=== PATIENT | female | born 1960 | race Caucasian/White ===

== ENCOUNTER 2020-10-05 13:05 | Emergency (ER) | payer MEDICAID, SELFPAY ==
[2020-10-05 13:07] VITALS: BP 121/83; PULSE 91; RESP 18; TEMP 36.1; O2SAT 98; BMI 16.2
--- NOTE | 2020-10-05 13:22 | CT_ITS ---
STUDY: CT BRAIN WITHOUT CONTRAST REASON FOR EXAM: Female, 60 years old. Headache RADIATION DOSAGE (If Supplied By Facility): CTDIvol = ( 44.99 ) mGy, DLP = ( 745.49 ) mGycm TECHNIQUE: Transaxial CT imaging of the brain was performed without administration of intravenous contrast material. Individualized dose optimization techniques were used for this CT. COMPARISON: No relevant priors. FINDINGS: Normal soft tissue structures. Normal calvarium. Normal size ventricles and extra-axial spaces for the patient''s age. Normal white matter tracts of the cerebral hemispheres. Normal basal ganglia and thalami. Normal brainstem. Normal cerebellum. There is no intracranial hemorrhage. There are no findings of an acute ischemic infarction. Normal visualized paranasal sinuses. CT/Brain/Head without Contrast IMPRESSION: Normal unenhanced CT scan of the brain. Electronically Signed: Geoff Luong MD at 14:16 EDT , Service support ,
--- NOTE | 2020-10-05 13:22 | EKG12_ITS ---
Test Reason : HEADACHE Blood Pressure : / mmHG Vent. Rate : 081 BPM Atrial Rate : 081 BPM P-R Int : 126 ms QRS Dur : 092 ms QT Int : 394 ms P-R-T Axes : 083 084 061 degrees QTc Int : 457 ms Normal sinus rhythm Incomplete right bundle branch block Borderline ECG Confirmed by JESS FAUSTIN, LIZETT ([id number]), scientific editor CELENA WHITESIDE ([id number]) on 10/06/2020 1:54:54 PM Referred By: RU Confirmed By:LIZETT MERCADO MD
--- NOTE | 2020-10-05 13:23 | ED.DCSUM_ITS ---
- ER Visit Summary Date of Service: 10/05/20 Chief Complaint: [Nausea and headache] History of Present Illness: The patient is a 60 F [presents to the emergency department with multiple complaints. Patient states that she developed a headache 2 days ago and cannot really remember if it came on suddenly or gradually build but has been continuous. Patient has taken Tylenol without relief. She complains of nausea but no vomiting. She describes diffuse body aches. Patient denies any fever. She denies significant cough. 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 Patient states that sometimes the cancer can metastasize to the lungs and she has had partial lobectomy. Patient denies any Covid exposures. Denies urinary symptoms. She describes mild abdominal discomfort but it is more nausea.] Physical Examination: [HEENT-PERRLA, EOMI. Cranial nerves II through XII grossly intact. TMs clear. Mucous membranes moist. No adenopathy. Cardiovascular-regular rate and rhythm without murmur or ectopy Lungs-clear to auscultation, chest wall stable without crepitus or subcu emphysema Abdomen-normoactive bowel sounds, soft, nontender, no rebound or rigidity, no p eritoneal signs. Neuro pnri-twydnp-etgd and heel wheeler testing within normal limits, negative Romberg, negative pronator, fundi benign Extremities-intact ?4, normal range of motion, normal pulses, atraumatic] Test Results: [EKG obtained arrival shows sinus rhythm with a ventricular rate of 81 bpm with an incomplete right bundle branch block. CBC with differential showed a normal white count of 8.1, hemoglobin 16.9, chemistries unremarkable. LFTs normal. Lipase was 169. Urinalysis normal. Troponin is less than 0.015. Rapid COVID-[address] of the brain was normal.] Emergency Department Course and Treatment: [IV line established on arrival. Patient was given Reglan, Benadryl, and Toradol and her headache did improve.] Treatment Plan: [Patient advised to follow-up with her primary care physician in 3 to 5 days.] Disposition: [Discharged home in stable condition] Impression: [Cephalgia Viral syndrome] This note was generated with [employer] software. It may contain incorrect words, spelling, and punctuation that were not noted in review of the chart prior to signing ED Disposition - Plan for ED Patient: Referrals: NOT,DEFINED [NON-STAFF] -
[2020-10-05] MEDS: Metoclopramide 10 MG/2 ML Vial IV (13:35)
[2020-10-05] MEDS: Ketorolac 15 MG/ML Vial IV (13:35)
[2020-10-05] MEDS: DiphenhydrAMINE 50 MG/ML Syringe 25 MG IV (13:35)
--- NOTE | 2020-10-05 13:45 | NURSING ---
NO OLD EKGS
[2020-10-05 13:49] LABS: Absolute Lymphocyte Count 2.77 X10^3/uL (0.83-4.51); Absolute Neutrophil Count 4.5 X10^3/uL (2.0-7.7); Basophil# 0.04 X10^3/uL; Basophil% 0.5 % (0-1); Eosinophil# 0.11 X10^3/uL; Eosinophils% 1.4 % (0-5); Hemoglobin 16.9 g/dL (12.0-15.0); Lymphocyte # 2.77 X10^3/ul (4.0); Lymphocyte % 34.2 % (19-41); Mean Corp Hgb Conc 33.1 g/dL (32-36); Mean Corpuscular Hgb 31.5 pg (27.0-32.0); Mean Platelet Vol. 10.7 fl (6.2-12.0); Monocyte# 0.65 X10^3/uL; NRBC Flagged by Analyzer 0 % (0-5); Neutrophil # 4.51 X10^3/uL (2.7-7.7); Neutrophil % 55.8 % (47-70); Platelet Count 255 K/mm3 (150-450); RBC Distribution Width CV 13.2 % (11.6-14.6); RBC Distribution Width SD 46.5 fl (35.1-43.9); Red Blood Count 5.37 M/mm3 (4.2-5.4); White Blood Count 8.1 K/mm3 (4.4-11.0)
[2020-10-05] MEDS: 0.9% Normal Saline 1,000 ML 150 ML IV (14:01)
[2020-10-05 14:11] LABS: ALB/GLOB Ratio 1.1 RATIO (0.9-2.4); AST(SGOT) 14 U/L (15-37); Alanine Aminotransfer ALT/SGPT 25 U/L (13-56); Albumin, Serum 4.1 g/dL (3.2-5.0); Alkaline Phosphatase 84 U/L (45-117); Anion Gap 6 (5-15); BUN 8 mg/dL (7-18); BUN/Creat Ratio 8.1 RATIO (10-20); Calcium,Total 9.6 mg/dL (8.5-10.1); Chloride 105 mmol/L (98-107); Creatinine, Serum 0.98 mg/dL (0.55-1.02); EST Glomerular Filtration Rate 61 mL/min (>60); Est Glom Filt Rate - Afr Amer 74 mL/min (>60); Estimated Creatinine Clearance 41.53 ml/min; Globulin 3.7 g/dL (2.2-4.2); Glucose 94 mg/dL (74-106); Lipase 169 U/L (73-393); Potassium 3.5 mmol/L (3.5-5.1); Protein, Total 7.8 g/dL (6.4-8.2); Sodium Level 141 mmol/L (136-145)
[2020-10-05 14:45] LABS: Mucous, Urine 0 SEEN /hpf (<or=2+); Red Blood Cells-Urine 0 SEEN /hpf (0-5); White Blood Cells 0 SEEN /hpf (0-5)
[2020-10-05 14:47] LABS: Color, Urine Yellow (Yellow); Glucose, Dipstick Normal (Normal); Ketone-Dipstick Negative (Negative); Leukocyte Esterase-Dipstick Negative /ul (Negative); Nitrite-Dipstick Negative (Negative); Occult Blood-Urine Negative /ul (Negative); Protein-Dipstick Negative (Negative); Urine Bilirubin Dipstick Negative (Negative); Urine Clarity Clear (Clear); Urine Urobilinogen Normal (Normal); Urine pH 6.5 (5.0 - 8.0)
[2020-10-05 14:56] LABS: Bacteria RARE /hpf (None Seen); Squamous Epithelial Cells - UA 0-5 SEEN /hpf (5-10)
--- NOTE | 2020-10-05 15:01 | ED.DEP ---
ED Disposition - Plan for ED Patient: Instructions: ED Viral Syndrome (Adult) Referrals: NOT,DEFINED [NON-STAFF] - 3-5 Days
[2020-10-05 15:15] VITALS: BP 116/75; PULSE 80; RESP 16; O2SAT 97
== END 2020-10-05 15:16 | disposition home or self-care (01) ==
LOC: ED 14:14
PROVIDERS: Emergency Provider Emergency Medicine
DX: B34.9 Viral infection, unspecified (principal); R51.9 Headache, unspecified; J44.9 Chronic obstructive pulmonary disease, unspecified; Z72.0 Tobacco use
CPT/HCPCS: 70450; 80053; 81001; 83690; 84484; 85025; 87426; 93005; 96361; 96374; 96375; 99284; J7030; A4216

== ENCOUNTER 2024-03-03 12:15 | Emergency (ER) | payer MEDICAID, SELFPAY ==
[2024-03-03 12:16] VITALS: BP 137/91; PULSE 87; RESP 16; TEMP 36.2; O2SAT 98; BMI 16.5
--- NOTE | 2024-03-03 12:31 | EKG12_ITS ---
Test Reason : CHEST TRAUMA Blood Pressure : / mmHG Vent. Rate : 077 BPM Atrial Rate : 077 BPM P-R Int : 126 ms QRS Dur : 084 ms QT Int : 380 ms P-R-T Axes : 084 084 076 degrees QTc Int : 430 ms Normal sinus rhythm Possible Left atrial enlargement Borderline ECG Confirmed by SALINAS FAUSTIN, KIM ([id number]), purchasing expeditor CELENA WHITESIDE ([id number]) on 03/07/2024 9:51:58 AM Referred By: Confirmed By:CURT NIÑO MD
[2024-03-03 14:22] VITALS: BP 138/95; PULSE 83; RESP 17; O2SAT 95
--- NOTE | 2024-03-03 14:23 | ED.RN ---
WHEN WALKING TO ED ROOM, PATIENT TRIPPED OVER HER SHOE AND LOWERED HERSELF TO THE GROUND. PATIENT STATES SHE DOES NOT WANT TO WEAR SHOES AND WALKS TO ED ROOM BAREFOOT
[2024-03-03 14:24] VITALS: O2SAT 97
[2024-03-03 14:25] VITALS: O2SAT 95; O2SAT 97
[2024-03-03 14:36] LABS: Absolute Lymphocyte Count 2.15 X10^3/uL (0.83-4.51); Absolute Neutrophil Count 4.2 X10^3/uL (2.0-7.7); Basophil# 0.01 X10^3/uL; Basophil% 0.1 % (0-1); Eosinophil# 0.11 X10^3/uL; Eosinophils% 1.6 % (0-5); Hematocrit 51.5 % (37-47); Hemoglobin 16.8 g/dL (12.0-15.0); Lymphocyte # 2.15 X10^3/ul (0.83-4.51); Lymphocyte % 30.8 % (19-41); Mean Corp Hgb Conc 32.6 g/dL (32-36); Mean Corpuscular Hgb 30.5 pg (27.0-32.0); Mean Corpuscular Volume 93.5 fL (81-99); Mean Platelet Vol. 10.1 fl (6.2-12.0); Monocyte# 0.49 X10^3/uL; NRBC Flagged by Analyzer 0 % (0-5); Neutrophil # 4.21 X10^3/uL (2.7-7.7); Neutrophil % 60.4 % (47-70); Platelet Count 159 K/mm3 (150-450); RBC Distribution Width CV 13.3 % (11.6-14.6); RBC Distribution Width SD 46.1 fl (35.1-43.9); Red Blood Count 5.51 M/mm3 (4.2-5.4)
[2024-03-03 14:50] LABS: Anion Gap 2 (5-15); BUN 9 mg/dL (7-18); BUN/Creat Ratio 12.2 RATIO (10-20); Calcium,Total 8.9 mg/dL (8.5-10.1); Chloride 106 mmol/L (98-107); Creatinine, Serum 0.74 mg/dL (0.55-1.02); EST Glomerular Filtration Rate 84 mL/min (>60); Est Glom Filt Rate - Afr Amer 102 mL/min (>60); Estimated Creatinine Clearance 53.63 ml/min; Glucose 125 mg/dL (74-106); Potassium 4.2 mmol/L (3.5-5.1); Sodium Level 136 mmol/L (136-145)
--- NOTE | 2024-03-03 14:59 | CT_ITS ---
STUDY: CT CHEST T ABDOMEN WITHOUT CONTRAST REASON FOR EXAM: Female, 63 years old. Injury -- left rib injury. Mid to lower anterior left ribs. RADIATION DOSAGE (If Supplied By Facility): CTDIvol = ( 6.07 ) mGy, DLP = ( 232.03 ) mGycm TECHNIQUE: Transaxial imaging was performed without the administration of intravenous contrast material. Multiplanar coronal and sagittal images were reformatted. Individualized dose optimization techniques were used for this CT. COMPARISON: No relevant priors. FINDINGS: CHEST Hyperinflation. Diffuse emphysematous changes with bullous formation. Calcified granuloma in the left lower lobe. Mild calcified pleural plaques. There are calcifications of the coronary arteries. Normal mediastinum. Calcified bilateral hilar lymph nodes. Normal unenhanced pulmonary arteries. Normal aorta arch and descending thoracic aorta. There is demineralization of the thoracic spine. There is no demonstrated abnormality of the visualized upper abdomen. CT/Chest without Contrast IMPRESSION: Hyperinflation and emphysematous changes. No rib fracture is seen. Electronically Signed: Geoff Luong MD at 15:52 EDT ,
--- NOTE | 2024-03-03 15:00 | EX.ED.GENINJ ---
HPI History of Present Illness Chief Complaint: Shortness of Breath Informant: patient Narrative Narrative: Presents for evaluation and continued left lower rib pain with increasing dyspnea. She had a fall 2 days ago off the deck hitting her left lower ribs. She had injury left hip also. She seen outside ED. She x-rays of the ribs and hip was performed and told negative and stated that fractures are still possible. She is written for [place] and naproxen and lidocaine patch. Her pharmacy was closed yesterday. She did not get any medicine since her ED visit. She reported increasing dyspnea today. She has history of COPD she wears oxygen as needed. No new injuries. [facility] Medical History Cancer of cartilage (articular) (joint) COPD (chronic obstructive pulmonary disease) Home Medications ?Medication ?Instructions ?Recorded ?Last Taken ?Type coenzyme Q10 200 mg capsule 400 mg PO DAILY 03/03/24 Unknown History hydrocodone-acetaminophen 5-325mg 1 tab PO TID PRN 03/03/24 Unknown History 5mg-325mg mometasone-formoterol HFA 100 2 puff inhalation Q12.TCU 03/03/24 Unknown History mcg-5 mcg/actuation aerosol inhaler (Dulera) naproxen 500 mg tablet 500 mg PO BID 03/03/24 Unknown History tiotropium bromide 2.5 2 puff inhalation DAILY 03/03/24 Unknown History mcg/actuation mist for inhalation (Spiriva Respimat) Allergy/AdvReac Type Severity Reaction Status Date / Time azithromycin AdvReac Anaphylaxis Verified 03/03/24 12:20 Surgical History S/P partial lobectomy of lung Social History Smoking Status: Light Smoker (<10/day) ROS ROS ED Constitutional Constitutional ED: Denies chills, fever(s) or sweats Eyes Eyes: Denies change in vision ENT ENT ED: Denies dysphagia or sore throat Cardiovascular Cardiovascular: Denies chest pain, leg edema, palpitations or racing heartbeat Respiratory/Chest Respiratory/Chest: Reports dyspnea and other Details: Left lower rib pain ; Denies cough or dyspnea on exertion Gastrointestinal Gastrointestinal: Denies abdominal pain, diarrhea, nausea or vomiting Genitourinary Genitourinary ED: Denies dysuria, hematuria or urinary frequency Musculoskeletal Musculoskeletal: Denies back pain, extremity pain or neck pain Integumentary Denies rash or wounds Neurologic Neurologic: Denies headache(s), paresthesias or weakness EXAM Physical Exam Const Vital Signs: 03/03/24 12:16 03/03/24 14:22 03/03/24 14:24 Temperature 97.2 F L Temperature Source Temporal Pulse Rate 87 83 Respiratory Rate 16 17 Respiratory Effort Short of Breath Respiratory Depth Shallow Respiratory Pattern Normal Blood Pressure 137/91 H 138/95 H Blood Pressure Mean 106 109 Pulse Ox 98 95 Oxygen Delivery Method Room Air Room Air 03/03/24 14:24 03/03/24 14:25 03/03/24 14:25 Temperature Temperature Source Pulse Rate Respiratory Rate Respiratory Effort Respiratory Depth Shallow Respiratory Pattern Blood Pressure Blood Pressure Mean Pulse Ox 97 95 Oxygen Delivery Method Room Air 03/03/24 16:06 03/03/24 16:06 Temperature 98 F Temperature Source Pulse Rate 87 87 Respiratory Rate 18 19 H Respiratory Effort Respiratory Depth Respiratory Pattern Blood Pressure 141/75 H 141/75 H Blood Pressure Mean 97 97 Pulse Ox 97 94 Oxygen Delivery Method Positive well nourished and well developed Constitutional Narrative: GCS 15. General Appearance ED: well developed and NAD HEENT Reports moist mucous membranes normocephalic and atraumatic Eyes EOMs intact bilaterally and conjunctivae normal General Eye ED: Yes normal appearance of both eyes Neck no lymphadenopathy and supple General: Negative for tenderness Chest Wall Chest Narrative: No crepitus of the chest wall. Tender palpation left lower anterior ribs. Chest: tenderness Resp normal respiratory effort and normal air movement Resp Narrative: Symmetric breath sounds. Effort and Inspection: symmetric chest movement; Negative for respiratory distress Cardio regular rate, regular rhythm and no murmurs Peripheral Pulses: pulses 2+ throughout GI normal to inspection, nondistended, normoactive bowel sounds and non-tender Palpation: Negative for guarding or rebound tenderness present Back/Spine no CVA tenderness and no thoracic nor lumbar tenderness Extremity normal to inspection Extremity Narrative: Negative logroll of the lower extremities. General Extremety ED: Negative for edema or tenderness General Extremity: Negative for edema Neuro oriented x3, CN's II-XII intact bilaterally and no sensory deficits noted Sensorium / Orientation: awake and alert Skin no rashes or lesions noted and no wounds MDM MDM MDM Narrative Medical decision making narrative: Interventions / MDM: Differential diagnosis: Chest contusion, history of COPD Diagnosis considered but do not suspect: Fracture, pneumothorax however CT negative. My EKG interpretation: Sinus rate of 77, no ST changes. T wave version aVL nonspecific. Imaging independently reviewed and interpreted by myself: Noncontrast CT chest: No pneumothorax no fractures noted. Also read by radiology. External documents reviewed: N/A Test considered but not ordered:N/A ED course: Nursing protocol obtain EKG and labs. Results her labs are stable. However patient had a fall 2 days a negative x-rays at outside facility. Send persistent pain reports increasing dyspnea. Clinically is symmetric breath sounds lower suspicion for pneumothorax. However with her pain, will obtain noncontrast CT chest for further evaluation. She will be treated with [place] in the ED. Image studies negative. She is reassured. She has naproxen and [place] at her pharmacy she needs to package pick up. Also Lidoderm patches. Initial order for incentive spirometer however she reports she has 1 at home for should use every 2 hours while she is awake to avoid pneumonia. All questions were answered. Re-evaluation: stable Disposition discussed with patient/family/significant other: Patient Case discussed with consulting clinician: N/A This note was generated with [employer] dictation software. It may contain incorrect words, spelling, and punctuation that were not noted in checking the note before signing. Lab Data Attestation: I reviewed the patient's lab results. Labs: Laboratory Results - last 24 hr 03/03/24 14:27 WBC 7.0 RBC 5.51 H Hgb 16.8 H Hct 51.5 H MCV 93.5 MCH 30.5 MCHC 32.6 RDW Std Deviation 46.1 H RDW Coeff of Darron 13.3 Plt Count 159 MPV 10.1 Immature Gran % (Auto) 0.100 Neut % (Auto) 60.4 Lymph % (Auto) 30.8 Sioux % (Auto) 7.0 Eos % (Auto) 1.6 Baso % (Auto) 0.1 Absolute Neuts (auto) 4.2 Absolute Lymphs (auto) 2.15 Nucleated RBC % 0 Sodium 136 Potassium 4.2 Chloride 106 Carbon Dioxide 28.0 Anion Gap 2 L BUN 9 Creatinine 0.74 Estim Creat Clear Calc 53.63 Est GFR (MDRD) Af Amer 102 Est GFR (MDRD) Non-Af 84 BUN/Creatinine Ratio 12.2 Glucose 125 H Calcium 8.9 Radiography Diagnostic Testing: Clinical Impression(s) from Imaging Studies Chest CT 03/03/24 14:59 IMPRESSION: Hyperinflation and emphysematous changes. No rib fracture is seen. Electronically Signed: Geoff Luong MD at 15:52 EDT , Discharge Plan Triage Chief Complaint: Shortness of Breath Other Complaint: Fall ED Provider: Todd Mixon Dx/Rx/DC Orders Clinical Impression: Chest wall contusion, History of COPD Instructions: ED Chest Wall Contusion Prescriptions: No Action hydrocodone-acetaminophen 5-325 mg tablet 1 tab PO TID PRN coenzyme Q10 200 mg capsule 400 mg PO DAILY naproxen 500 mg tablet 500 mg PO BID Dulera 100-5 mcg/actuation HFA aerosol inhaler 2 puff INHALATION Q12.TCU Spiriva Respimat 2.5 mcg/actuation mist 2 puff inhalation DAILY Primary Care Provider: RONALDO GRIER NP Referrals: NOT,DEFINED [Non-Staff] - Activity Restrictions/Additional Instructions: Noncontrast CT chest negative for any fracture or pneumothorax. 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 Use your home incentive spirometry every 2 hours while awake to prevent pneumonia. Print Language: Greek Disposition Disposition: Home, Self Care Discharge Date/Time: 03/03/24 16:10
[2024-03-03] MEDS: HYDROcodone Bitartrate/Apap 5/325 Tablet PO (15:39)
[2024-03-03 16:06] VITALS: BP 141/75; PULSE 87; RESP 18; RESP 19; TEMP 36.6; O2SAT 94; O2SAT 97
== END 2024-03-03 16:10 | disposition home or self-care (01) ==
PROVIDERS: Emergency Provider Emergency Medicine; Visit Provider Emergency Medicine
DX: S20.212A Contusion of left front wall of thorax, initial encounter (principal); J44.9 Chronic obstructive pulmonary disease, unspecified; W17.89XA Other fall from one level to another, initial encounter; F17.200 Nicotine dependence, unspecified, uncomplicated
CPT/HCPCS: 71250; 80048; 85025; 93005; 94760; 99283; A4216

== ENCOUNTER → 2025-05-01 | Outpatient (CLI) | payer MEDICAID, SELFPAY ==
--- NOTE | 2025-05-01 07:18 | MRI_ITS ---
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 CONTRAST: Clariscan VOLUME: 9 mL COMPARISON: None. FINDINGS: There are few scattered punctate foci of abnormal subcortical and periventricular white matter signal in both cerebral hemispheres. There is no abnormal intracranial contrast enhancement. There is a normal sulcal pattern and gyral configuration. There is no evidence of acute intracranial hemorrhage or infarction. The castillo-white differentiation is well preserved. There is no evidence of restricted diffusion. The ventricles and basilar cisterns are normal. There are normal flow voids demonstrated in the recognized intracranial vessels. The cerebellum and brainstem are unremarkable. The cerebellar pontine angles are normal. The craniovertebral junction is normal. The sella and suprasellar regions are normal. The orbits and retro-orbital regions are unremarkable. There is mild nasal septal deviation to the left. The left middle nasal lola is hypoplastic. There is a mucous retention cyst in the floor of the left maxillary sinus. The paranasal sinuses are otherwise clear. There are multiple fluid-filled mastoid air cells bilaterally. There is normal bone marrow signal in the skull base and calvarium. MRI/Brain W/WO Contrast IMPRESSION: 1. No abnormal intracranial contrast enhancement to suggest metastatic disease . 2. Foci of abnormal signal in both cerebral hemispheres consistent with chroni c ischemic white matter disease. 3. Paranasal sinus disease as described. Reading Location: [place] [id number]
--- OUTSIDE RECORDS SUMMARY | 2025-05-01 07:20 | XMS RPT_ITS | CCD ---
Author Organization [facility] Care Team Providers Care [employer] Officer Name Role Phone Tex Roldan Unavailable Unavailable Tex Roldan Unavailable Unavailable Tex Roldan Unavailable Unavailable Butch Priest Unavailable Aliya GATE SHEAR OPERATOR-PUBLIC SPEAKING PROFESSOR, Yulia R Primary Care Provider [place] GATE SHEAR OPERATOR-PUBLIC SPEAKING PROFESSOR, Crystal Unavailable Martin Gilbert MD Unavailable Arely FAUSTIN, Dior Root Unavailable Arely FAUSTIN, Dior B Unavailable Cleves GATE SHEAR OPERATOR-PUBLIC SPEAKING PROFESSOR, Yulia R Primary Care Provider [place] GATE SHEAR OPERATOR-PUBLIC SPEAKING PROFESSOR, Crystal Unavailable Martin Gilbert MD Unavailable [phone] Arely FAUSTIN, Dior Root Unavailable Cleves GATE SHEAR OPERATOR-PUBLIC SPEAKING PROFESSOR, Yulia R Primary Care Provider [place] GATE SHEAR OPERATOR-PUBLIC SPEAKING PROFESSOR, Crystal Unavailable Martin Gilbert MD Unavailable Arely FAUSTIN, Dior Root Unavailable Cleves GATE SHEAR OPERATOR-PUBLIC SPEAKING PROFESSOR, Yulia R Primary Care Provider Arely FAUSTIN, Dior Unavailable NONE NONE, NONE~[phone] NONE Primary Care Unavailable COURTNEY ROSE MD Consulting Unavailable ELIZA FAUSTIN DR~[id number] KEVIN Leonard Admitting Unavailable ELIZA FAUSTIN DR~[id number] KEIVN Leonard Attending Unavailable COURTNEY ROSE MD Consulting Unavailable NONE NONE, NONE~[phone] NONE Consulting Unavailable NONE, NONE Consulting Unavailable ALMANZAR PA-C, TOREY R Consulting Unavailabl e ALMANZAR PA-C, TOREY R Consulting Unavailabl e NONE NONE, NONE~[phone] NONE Primary Care Unavailable NONE NONE, NONE~[id number] NONE Consulting Unavailable ALMANZAR PA-C~[id number], ALMANZAR TOREY R Admitti ng Unavailable ALMANZAR PA-C~[id number], ALMANZAR TOREY R Attendi ng Unavailable NONE, NONE Consulting Unavailable ALMANZAR PA-C, TOREY R Consulting Unavailabl e ALMANZAR PA-C, TOREY R Consulting Unavailabl e NONE NONE, NONE~[phone] NONE Primary Care Unavailable ANAI FAUSTIN, DR MATEO Rangel Consulting Unavail able WOOD DO~[id number], WOOD TITO A Admitting Unavailable WOOD DO~[id number], WOOD TITO A Attending Unavailable ANAI FAUSTIN, DR MATEO Rangel Consulting Unavail able NONE NONE, NONE~[id number] NONE Consulting Unavailable NONE, NONE Consulting Unavailable EDWARD GATE SHEAR OPERATOR, IRMA E Consulting Unavail able EDWARD GATE SHEAR OPERATOR, IRMA E Consulting Unavail able WOOD DO, TITO A Consulting Unavailable WOOD DO, TITO A Consulting Unavailable [place] GATE SHEAR OPERATOR-PUBLIC SPEAKING PROFESSOR, Crystal Unavailable Cleves GATE SHEAR OPERATOR-PUBLIC SPEAKING PROFESSOR, Yulia Moore Primary Care Provider [place] GATE SHEAR OPERATOR-PUBLIC SPEAKING PROFESSOR, Crystal Unavailable Martin Gilbert MD Unavailable Dior Mcgee MD Unavailable [facility], Other Unavailable Nai Menjivar Attending Physician Unavailable Dr. Roddy Garay DO Attending Physician CHERI WHITE Referring Provider Roddy Garay Attending Unavailable Nai Menjivar Attending Unavailable Roddy Garay Attending Unavailable Roddy Garay Referring Unavailable Roddy Garay Attending Unavailable Roddy Garay Referring Unavailable CAMMY GILLIAM Primary Care Unavailable Roddy Garay Attending Unavailable CAMMY GILLIAM Referring Unavailable TIFFANY, SHWETHA K Attending Unavailable SELF, SELF Referring Unavailable ALIYA, YULIA R Primary Care Unavailable JEY ZAIN Iam Attending Unavailable CLOYES, SAVI R Referring Unavailable ALIYA, YULIA R Primary Care Unavailable ALIYA, YULIA R Referring Unavailable ALIYA, YULIA R Attending Unavailable ALIYA, YULIA R Primary Care Unavailable TIFFANY, SHWETHA K Referring Unavailable KINGA CARPENTER Ariel Attending Unavailable ALIYA, YULIA R Primary Care Unavailable TIFFANY, SHWETHA K Referring Unavailable TIFFANY, SHWETHA K Attending Unavailable ALIYA, YULIA R Primary Care Unavailable TIFFANY, SHWETHA K Referring Unavailable TIFFANY, SHWETHA Rangel Attending Unavailable ALIYA, YULIA R Primary Care Unavailable ALIYA, YULIA R Referring Unavailable TIFFANY, SHWETHA K Attending Unavailable ALIYA, YULIA R Primary Care Unavailable ALMA BAPTISTE Attending Unavailable SAVI VAZQUEZ Referring Unavailable ALIYA, YULIA R Primary Care Unavailable ALIYA, YULIA R Referring Unavailable NAYA GALICIA Attending Unavailable ALIYA, YULIA R Primary Care Unavailable ALMA BAPTISTE Referring Unavailable ALMA BAPTISTE Attending Unavailable ALIYA, YULIA R Primary Care Unavailable SELF, SELF Referring Unavailable NAYA GALICIA Attending Unavailable ALIYA, YULIA R Primary Care Unavailable BRAN CURRIE Referring Unavailable ALIYA, YULIA R Primary Care Unavailable BRAN CURRIE Attending Unavailable MELISSA SAVI R Attending Unavailable ALIYA, YULIA R Primary Care Unavailable MELISSA, SAVI R Referring Unavailable MELISSA, SAVI R Referring Unavailable MELISSA, SAVI R Attending Unavailable ALIYA, YULIA R Primary Care Unavailable ALIYA, YULIA R Referring Unavailable TIFFANY, SHWETHA Rangel Attending Unavailable ALIYA, YULIA R Primary Care Unavailable MELISSA, SAVI R Attending Unavailable ALIYA, YULIA R Primary Care Unavailable MELISSA, SAVI R Referring Unavailable ALIYA, YULIA R Attending Unavailable SELF, SELF Referring Unavailable ALIYA, YULIA R Primary Care Unavailable ALIYA, YULIA R Referring Unavailable BRAN CURRIE Attending Unavailable ALIYA, YULIA R Primary Care Unavailable Dior Mcgee MD Unavailable [facility], Other Unavailable Allergies Allergy Classification Reported Allergen(s) Allergy Type Date of Onset Reaction(s) Facility Albuterol (3 sources) Albuterol Drug Allergy 4 Shortness of Breath, Anxiety, Palpitations, Tachycardia [facility] Macrolides (antibiotic) (3 sources) Azithromycin Drug Allergy 9 Anaphylaxis [facility] Work Phone: (1 source) azithromycin; Translations: [Zithromax Z-Gelacio] Drug Allergy [facility] Repository (1 source) Alendronate Drug Allergy 7 Shortness of Breath, Nausea and Vomiting [facility] Work Phone: (20 sources) Azithromycin Drug Allergy 0 Shortness of Breath, Bronchospasms, Anaphylaxis [facility] Work Phone: (1 source) gabapentin Drug Allergy 8 Numbness [facility] Work Phone: (17 sources) Albuterol Drug Allergy 4 Shortness of Breath, Anxiety, Palpitations, Tachycardia [facility] (1 source) Azithromycin Drug Allergy [facility] Repository (1 source) Albuterol Drug Allergy 5 [facility] Repository (1 source) Azithromycin Drug Allergy 5 [facility] Repository Medications Current Medications Medication Drug Class(es) Dates Sig (Normalized) Sig (Original) albuterol 0.833 mg/ml / ipratropium bromide 0.167 mg/ml inhalation solution (20 sources) Anticholinergic, beta2-Adrenergic Agonist Start: 11-21-2021 End: 11-22-2021 ipratropium-albute rol (DUONEB) 0.5-2.5 (3) MG/3ML nebulizer solution 3 mL Start: 11-11-2021 End: 02-21-2025 Ipratropium-albuterol 0.5-2. 5 (3) MG/3ML nebulizer solution Indications: Panlobular emphysema Take 3 mL by nebulization every 4 hours as needed for Wheezing, Respiratory Distress, Breathing Treatment, Cough or Shortness of Breath. 9 mL 3 01/22/2025 Active Start: 11-09-2021 End: 11-11-2021 take 3 mL by inhalation every six hours ipratropium-albuterol (DUONEB) 0.5-2.5 (3) MG/3ML nebulizer solution 3 mL Start: 01-11-2021 End: 11-11-2021 ipratropium-albuterol 0.5-2. 5 (3) MG/3ML nebulizer solution Indications: COPD with acute exacerbation Take 3 mL by nebulization every 6 hours as needed for Wheezing, Shortness of Breath or Breathing Treatment. 90 mL 1 01/11/2021 11/11/2021 Discontinued Atogepant 60 MG tablet (7 sources) Start: 02-27-2023 take 1 tablet by mouth once daily Atogepant 60 MG tablet Take 60 mg by mouth daily. 30 tablet 11 02/27/2023 Active cholecalciferol 5000 unt oral tablet (1 source) Vitamin D Start: 04-01-2018 take 1 tablet by mouth once daily cholecalciferol 5000 units Tab tablet Take 1 tablet by mouth daily. 90 tablet 3 04/01/2018 Active CUSTOM MEDICATION (20 sources) CUSTOM MEDICATIO N Lung Flush Active CUSTOM MEDICATIO N [place] supplement Active daily multivitamin tablet (20 sources) Start: 10-20-2023 daily multivit becker tablet 10/20/2023 Active Dimethicone-Zinc Oxide-Silve r 20-25-25 %-%-PPM spray,non-aerosol (1 source) Start: 04-20-2025 Dimethicone-Zi nc Oxide-Silver 20-25-25 %-%-PPM spray,non-aerosol Active [facility] April 20, 2025 12:00am Complies with drug therapy DISABILITY PLACARD (20 sources) Start: 11-07-2022 End: 11-09-2027 DISABILITY PLACARD Indicatio ns: Panlobular emphysema Disability placard end date 11/09/2027 1 Each 11/07/2022 11/09/2027 Active Start: 11-07-2022 End: 11-09-2027 DISABILITY PLACARD Indicatio ns: Panlobular emphysema Disability placard end date 11/09/2027 1 Each 0 11/07/2022 11/09/2027 Active Start: 09-27-2021 End: 09-28-2022 DISABILITY PLACARD Indicatio ns: Chronic pain of right heel Disability placard end date 09/28/2022 1 Each 0 09/27/2021 09/28/2022 Suspended Start: 09-27-2021 End: 09-28-2022 DISABILITY PLACARD Indicatio ns: Chronic pain of right heel Disability placard end date 09/28/2022 1 Each 0 09/27/2021 09/28/2022 Start: 09-27-2021 End: 09-28-2022 DISABILITY PLACARD Indicatio ns: Chronic pain of right heel Disability placard end date 09/28/2022 1 Each 0 09/27/2021 09/28/2022 Active Ensure High Protein Po Liqd (1 source) Start: 04-01-2018 Nutritional Supplements (ENSURE HIGH PROTEIN) Liquid Take 1 Bottle by mouth daily. 30 Can 3 04/01/2018 Active Flavoring Agent (Bulk) oil (1 source) Start: 04-20-2025 Flavoring Agen t (Bulk) oil Active [facility] April 20, 2025 12:00am Complies with drug therapy 60 actuat formoterol fumarate 0.005 mg/actuat / mometasone furoate 0.1 mg/actuat metered dose inhaler (20 sources) Corticosteroid, beta2-Adrenergic Agonist Start: 03-20-2025 take 2 puff(s) by mouth once Dulera 100-5 MCG/ACT Aerosol Indications: Panlobular emphysema inhale TWO puffs BY MOUTH EVERY TWELVE HOURS 13 g 1 03/20/2025 Active Start: 01-22-2025 take 2 puff(s) by in halation every twelve hours Mometasone Furo-Formoterol Fum (Dulera) 100-5 MCG/ACT Aerosol Indications: Panlobular emphysema Inhale 2 puffs every 12 hours. 13 g 1 01/22/2025 Active Start: 04-14-2024 End: 01-22-2025 take 2 puff(s) by mouth every twelve hours Dulera 100-5 MCG/ACT Aerosol Indications: Panlobular emphysema inhale 2 puffs by mouth every 12 hours 13 g 1 04/14/2024 01/22/2025 Discontinued (Reorder) Start: 03-03-2024 Mometasone-For moterol [Mometasone-Formoterol Hfa 100 Mcg-5 Mcg/Actuation Aerosol Inhaler] (Mometasone-Formoterol Hfa 100 Mcg-5 Mcg/Actuation Aerosol ) 100-5 mcg/actuation HFA aerosol inhaler Active 2 [facility] INHALATION March 03, 2024 12:00am Complies with drug therapy Start: 12-12-2023 End: 02-14-2024 take 2 puff(s) by mouth every twelve hours Dulera 100-5 MCG/ACT Aerosol Indications: Panlobular emphysema inhale 2 puffs by mouth every 12 hours 13 g 1 12/12/2023 02/14/2024 Discontinued Start: 10-24-2023 take 2 puff(s) by mo uth every twelve hours Dulera 100-5 MCG/ACT Aerosol Indications: Panlobular emphysema inhale 2 puffs by mouth every 12 hours 13 g 1 10/24/2023 Active Start: 03-21-2023 take 2 puff(s) by mo uth every twelve hours Dulera 100-5 MCG/ACT Aerosol Indications: Panlobular emphysema INHALE 2 PUFFS BY MOUTH EVERY 12 HOURS 13 g 3 03/21/2023 Active Start: 01-09-2023 take 2 puff(s) by in halation every twelve hours Mometasone Furo-Formoterol Fum (Dulera) 100-5 MCG/ACT Aerosol Indications: Panlobular emphysema Inhale 2 puffs every 12 hours. 13 g 1 01/09/2023 Active Start: 11-21-2022 End: 01-09-2023 take 2 puff(s) by mouth every twelve hours Dulera 100-5 MCG/ACT Aerosol Indications: Panlobular emphysema INHALE 2 PUFFS BY MOUTH EVERY 12 HOURS. 13 g 1 11/21/2022 01/09/2023 Discontinued (Reorder) Start: 09-15-2022 take 2 puff(s) by mo uth every twelve hours Dulera 100-5 MCG/ACT Aerosol Indications: Panlobular emphysema INHALE 2 PUFFS BY MOUTH EVERY 12 HOURS. 13 g 1 09/15/2022 Active Start: 11-22-2021 take 2 puff(s) by mo uth every twelve hours Mometasone Furo-Formoterol Fum (Dulera) 100-5 MCG/ACT Aerosol Inhale 2 puffs by mouth every 12 hours. 13 g 3 11/22/2021 Active Start: 11-22-2021 End: 11-22-2021 Mometasone Furo-Formoterol F um (DULERA) 100-5 MCG/ACT inhaler 2 puff HERBAL PRODUCT (12 sources) take 1 dose by mouth once daily HERBAL PRODUCT Take 1 Dose by mouth daily. Replace this text with the name of the herbal product Active lidocaine 0.05 mg/mg medicated patch (1 source) Antiarrhythmic, Amide Local Anesthetic Start: 8 lidocaine 5 % Patch patch Place 1 patch on skin every 24 hours. Max of 12 hours of application then remove 10 patch 0 02/19/2018 Active Misc Natural Products (Sambucus Elderberry Immune) Chew Tab (17 sources) Misc Natural Products (Sambucus Elderberry Immune) Chew Tab Chew 2 Pieces of gum daily. 2 in the morning, 1 at night Active mullien leaf tea (1 source) Start: 5 mushroom coffe (1 source) Start: 5 Nebulizer Misc (6 sources) omeprazole 40 mg delayed release oral capsule (1 source) Proton Pump Inhibitor Start: 8 take 1 capsule by mouth once daily omeprazole [address] capsule Take 1 capsule by mouth daily. 30 capsule 3 03/04/2018 Active ondansetron 4 mg disintegrating oral tablet (20 sources) Serotonin-3 Receptor Antagonist Start: 5 End: 5 take 1 tablet by mouth every eight hours Ondansetron 4 mg tablet,disintegrati ng Active 4 mg PO Q8H April 15, 2025 12:00am Complies with drug therapy Start: 12-29-2022 take 1 tablet by jenna every eight hours as needed Ondansetron 4 MG Tab Dispersible tablet Take 1 tablet by mouth every 8 hours as needed for Nausea / Vomiting. 90 tablet 3 12/29/2022 Active Start: 10-29-2017 take 1 tablet by jenna every eight hours as needed for nausea and nausea ondansetron 8 MG Tab tablet Indications: Nausea Take 1 tablet by mouth every 8 hours as needed for Nausea. 30 tablet 3 10/29/2017 Active polyethylene glycol 3350 [id number] mg / potassium chloride 1480 mg / sodium bicarbonate 5720 mg / sodium chloride 57015 mg powder for oral solution (1 source) Osmotic Laxative Start: 04-24-2018 peg 3350/Electrolyte Jug, Nulytely, 420 g Recon Soln Drink half of the solution at 6:00pm the evening before your colonoscopy and the other half 6 hours before your colonoscopy. 1 Bottle 0 04/24/2018 Active predniSONE 20 mg oral tablet (8 sources) Start: 11-23-2021 End: 11-26-2021 take 2 tablets by mouth once daily predniSONE 20 MG tablet Take 2 tablets by mouth daily for 3 days. 6 tablet 0 11/23/2021 11/26/2021 Active Start: 11-22-2021 End: 11-22-2021 predniSONE (DELTASONE) table t 40 mg Start: 11-21-2021 End: 11-21-2021 predniSONE (DELTASONE) table t 60 mg Start: 11-12-2021 End: 11-15-2021 take 2 tablets by mouth once daily predniSONE 20 MG tablet Take 2 tablets by mouth daily for 3 days. 6 tablet 0 11/12/2021 11/15/2021 Active Start: 11-09-2021 End: 11-11-2021 predniSONE (DELTASONE) table t 40 mg riboflavin 100 mg oral table t (9 sources) Start: 10-20-2023 Vitamin B-2 10 0 MG tablet 10/20/2023 Active Start: 07-17-2023 End: 10-29-2023 take 1 capsule by mouth once daily Riboflavin 400 MG capsule Take 1 capsule by mouth daily. 30 capsule 11 07/17/2023 10/29/2023 Discontinued soursop tea (1 source) Start: 04-20-2025 Spacer/Aero-Holdin g Chambers ([place] Holding Chamber) Device (20 sources) Start: 08-28-2023 Spacer/Aero-Ho ldi ng Chambers ([place] Holding Chamber) Device 08/28/2023 Active 10 actuat tiotropium 0.0025 mg/actuat inhalation spray (20 sources) Anticholinergic Start: 04-14-2024 take 2 puff(s) by inhalation once daily Spiriva Respimat 2.5 MCG/ACT Aero Soln inhaler Indications: Panlobular emphysema INHALE 2 PUFFS DAILY. 4 g 3 04/14/2024 Active Start: 03-03-2024 End: 04-20-2025 take 2.5 ug by inhalation once daily Tiotropium [place] (Tiotropium [place] 2.5 Mcg/Actuation Mist For Inhalation) 2.5 mcg/actuation mist Discontinued 2 [facility] INHALATION DAILY March 03, 2024 12:00am April 20, 2025 9:24am Start: 12-12-2023 take 2 puff(s) by in halation once daily Spiriva Respimat 2.5 MCG/ACT Aero Soln inhaler Indications: Panlobular emphysema INHALE 2 PUFFS DAILY. 4 g 3 12/12/2023 Active Start: 06-27-2023 take 2 puff(s) by in halation once daily tiotropium (Spiriva Respimat) 2.5 MCG/ACT Aero Soln inhaler Indications: Panlobular emphysema Inhale 2 puffs daily. 4 g 3 06/27/2023 Active Start: 01-09-2023 take 2 puff(s) by in halation once daily tiotropium (Spiriva Respimat) 2.5 MCG/ACT Aero Soln inhaler Indications: Panlobular emphysema Inhale 2 puffs daily. 4 g 3 01/09/2023 Active Start: 12-05-2022 End: 01-09-2023 take 2 puff(s) by mouth once daily Spiriva Respimat 2.5 MCG/ACT Aero Soln inhaler Indications: Panlobular emphysema INHALE 2 PUFFS BY MOUTH DAILY 4 g 1 12/05/2022 01/09/2023 Discontinued (Reorder) Start: 11-22-2021 End: 11-22-2021 take 2 puff(s) by inhalation once daily 2 puff, Inhalation, DAILY, First dose on Sun11/22/21 at 0900, Until Discontinued For self-administered inhalers, contact Respiratory Therapy for canister activation. Start: 11-12-2021 End: 12-07-2022 take 2 puff(s) by inhalation once daily tiotropium (Spiriva Respimat) 2.5 MCG/ACT Aero Soln inhaler Indications: Panlobular emphysema Inhale 2 puffs daily. 4 g 0 11/07/2022 12/07/2022 Active Start: 11-10-2021 End: 11-11-2021 take 2 puff(s) by inhalation once daily 2 puff, Inhalation, DAILY, First dose on Sun11/10/21 at 0900, Until Discontinued For self-administered inhalers, contact Respiratory Therapy for canister activation. Start: 03-31-2021 End: 11-11-2021 take 1 puff(s) by inhalation once daily tiotropium (Spiriva Respimat) 2.5 MCG/ACT Aero Soln inhaler Indications: Panlobular emphysema Inhale one puff every day 12 g 1 03/31/2021 11/11/2021 Discontinued Start: 06-11-2018 take 1 capsule by in halation once daily tiotropium (SPIRIVA HANDIHALER) 18 MCG inhalation capsule Inhale 1 capsule daily. 30 capsule 6 06/11/2018 Active tiZANidine 2 mg oral tablet (20 sources) Central alpha-2 Adrenergic Agonist Start: 06-23-2023 End: 01-22-2025 take 1 tablet by mouth three times daily as needed for muscle spasms Tizanidine 2 MG tablet Take 1 tablet by mouth 3 times daily as needed for Muscle spasms. 90 tablet 3 01/22/2025 Active Start: 11-21-2022 End: 05-29-2023 take 1 tablet by mouth three times daily Tizanidine 2 MG tablet Take 1 tablet by mouth 3 times daily. 30 tablet 5 11/21/2022 05/29/2023 Discontinued Completed/Discontinued Medications Medication Drug Class(es) Dates Sig (Normalized) Sig (Original) acetaminophen 325 mg oral tablet (3 sources) Start: 11-21-2021 End: 11-22-2021 take 1 tablet by mouth every six hours as needed acetaminophen (TYLENOL) tablet 650 mg Start: 11-10-2021 End: 11-11-2021 take 1 tablet by mouth every six hours as needed acetaminophen (TYLENOL) tablet 650 mg acetaminophen 325 mg / HYDROcodone bitartrate 5 mg oral tablet (1 source) Opioid Agonist Start: 03-03-2024 End: 04-20-2025 Hydrocodone-Acetaminophen 5-325 mg tablet Discontinued 1 {tbl} PO 3 TIMES DAILY NEEDED March 03, 2024 12:00am April 20, 2025 9:24am [id number] 200 actuat albuterol 0.09 mg/actuat metered dose inhaler (3 sources) beta2-Adrene rgic Agonist Start: 09-26-2021 End: 11-11-2021 take 2 puff(s) by mouth every six hours as needed for cough Ventolin HFA 108 (90 Base) MCG/ACT Aero Soln inhaler Indications: Panlobular emphysema INHALE 2 PUFFS BY MOUTH EVERY 6 HOURS NEEDED FOR SHORTNESS OF BREATH, COUGH OR WHEEZING 18 g 1 09/26/2021 11/11/2021 Discontinued aluminum hydroxide 40 mg/ml / magnesium hydroxide 40 mg/ml / simethicone 4 mg/ml oral suspension (3 sources) Start: 11-21-2021 End: 11-22-2021 take 30 mL by mouth every six hours as needed alum/mag hydrox.-simethicone oral suspension 30 mL Start: 11-10-2021 End: 11-11-2021 take 30 mL by mouth every six hours as needed alum/mag hydrox.-simethicone oral suspension 30 mL benzocaine 15 mg / menthol 3.6 mg oral lozenge (3 sources) Standardized Chemical Allergen Start: 11-21-2021 End: 11-22-2021 benzocaine-menthol (CEPACOL) 15-3.6 MG per lozenge 1 lozenge Start: 11-10-2021 End: 11-11-2021 benzocaine-menthol (CEPACOL) 15-3.6 MG per lozenge 1 lozenge budesonide 0.25 mg/ml inhalation suspension (7 sources) Corticosteroid Start: 11-11-2021 End: 12-11-2021 take 2 mL by inhalation every twelve hours budesonide 0.5 MG/2ML nebulizer suspension Inhale 2 mL every 12 hours. 60 Each 0 11/11/2021 11/22/2021 Discontinued (Stop Taking at Discharge) Start: 11-11-2021 End: 11-11-2021 budesonide (PULMICORT) nebul izer suspension 0.5 mg calcium carbonate 600 mg / cholecalciferol 0.01 mg oral tablet (20 sources) Vitamin D Start: 10-13-2022 End: 05-29-2023 take 1 tablet by mouth twice daily at mealtime Calcium Carb-Cholecalciferol 600-10 MG-MCG tablet TAKE 1 TABLET BY MOUTH TWICE A DAY WITH MEALS 180 tablet 3 10/13/2022 05/29/2023 Discontinued Start: 11-18-2021 take 1 tablet by jenna th twice daily at mealtime Calcium Carbonate-Vitamin D3 600-400 MG-UNIT tablet Take 1 tablet by mouth 2 times daily with meals. 0 11/18/2021 Active Start: 10-02-2020 End: 11-14-2021 take 1 tablet by mouth twice daily at mealtime calcium carbonate-vitamin D 600mg-400units 600-400 MG-UNIT tablet Take 1 tablet by mouth 2 times daily with meals. 60 tablet 11 10/02/2020 11/14/2021 Discontinued (Reorder) Start: 10-02-2020 End: 11-11-2021 take 1 tablet by mouth twice daily at mealtime Calcium Carbonate-Vitamin D3 600-400 MG-UNIT tablet Indications: Osteoporosis of multiple sites Take 1 tablet by mouth 2 times daily with meals. 0 08/23/2021 11/11/2021 Discontinued Start: 02-19-2018 take 1 tablet by jenna th twice daily at mealtime CALCIUM-VITAMIN D3 600-400 MG-UNIT Tab TAKE 1 TABLET BY MOUTH 2 TIMES DAILY WITH MEALS.. 60 tablet 11 02/19/2018 Active calcium carbonate-vitamin D 600mg-400units 600-400 MG-UNIT tablet (20 sources) Start: 11-14-2021 End: 02-27-2024 take 1 tablet by mouth twice daily at mealtime calcium carbonate-vitamin D 600mg-400units 600-400 MG-UNIT tablet Take 1 tablet by mouth 2 times daily with meals. 60 tablet 11 11/14/2021 02/27/2024 Discontinued (Patient Preference) Start: 11-14-2021 take 1 tablet by jenna th twice daily at mealtime calcium carbonate-vitamin D 600mg-400units 600-400 MG-UNIT tablet Take 1 tablet by mouth 2 times daily with meals. 60 tablet 11 11/14/2021 Active Start: 11-14-2021 take 1 tablet by jenna th twice daily at mealtime calcium carbonate-vitamin D 600mg-400units 600-400 MG-UNIT tablet Take 1 tablet by mouth 2 times daily with meals. 60 tablet 11 11/14/2021 Suspended calcium chloride 0.0014 meq/ml / potassium chloride 0.004 meq/ml / sodium chloride 0.103 meq/ml / sodium lactate 0.028 meq/ml injectable solution (2 sources) Start: 11-10-2021 End: 11-10-2021 lactated ringers IV solution 1,000 mL calcium citrate 1500 mg / cholecalciferol 250 unt oral tablet (2 sources) Vitamin D Start: 11-10-2021 End: 11-11-2021 take 2 tablets by mouth once daily at bedtime 2 tablet, Oral, DAILY AT BEDTIME, First dose on Safia 11/10/21 at 0030, Until Discontinued ciprofloxacin 0.003 mg/mg ophthalmic ointment (9 sources) Quinolone Antimicrobial Start: 02-09-2023 End: 05-29-2023 Ciprofloxacin 0.3 % Ointment Apply 1/2 inch along the lash line twice daily to the left eye for the next 5-7 days. 3.5 g 0 02/09/2023 05/29/2023 Discontinued dextromethorphan hydrobromide 30 mg / pyrilamine maleate 30 mg oral tablet (3 sources) Uncompetitive C-qcppwl-Z-asparta te Receptor Antagonist, Sigma-1 Agonist Start: 03-31-2021 End: 11-11-2021 take 1 tablet by mouth twice daily as needed Dextromethorphan-Pyri sourav ([place] DMT) 30-30 MG tablet Indications: Panlobular emphysema Take 1 tablet by mouth 2 times daily as needed. 60 tablet 0 03/31/2021 11/11/2021 Discontinued doxycycline monohydrate 100 mg oral capsule (2 sources) Tetracycline-class Drug Start: 11-10-2021 End: 11-11-2021 doxycycline monohydrate (MONODOX) capsule 100 mg 0.3 ml enoxaparin sodium 100 mg/ml prefilled syringe (1 source) Low Molecular Weight Heparin Start: 11-21-2021 End: 11-22-2021 Enoxaparin Sodium (LOVENOX) injection 30 mg F-18 Fluorodeoxyglucose (FDG) IVPB 9-14.3 millicurie (1 source) Start: 01-17-2022 End: 01-17-2022 F-18 Fluorodeoxyglucose (FDG) IVPB 9-14.3 millicurie Fludeoxyglucose F 18 20-200 MCI/ML IVPB 8-14.3 millicurie (1 source) Start: 02-11-2025 End: 02-11-2025 8-14.3 millicurie, Intravenous, ONCE, 1 dose, On Sun02/11/25 at 0800 fluticasone propionate 0.05 mg/actuat metered dose nasal spray (20 sources) Corticosteroid Start: 06-26-2023 End: 02-27-2024 take 1 spray(s) nasal route once daily fluticasone 50 MCG/ACT Suspension nasal spray Indications: Panlobular emphysema INSTILL 1 SPRAY INTO EACH NOSTRIL ONCE DAILY 16 g 06/26/2023 02/27/2024 Discontinued (Patient Preference) Start: 02-21-2023 fluticasone 50 MCG/ACT Suspension nasal spray Indications: Panlobular emphysema SPRAY 1 SPRAY BY NASAL ROUTE EVERY DAY 16 mL 3 02/21/2023 Active Start: 12-26-2022 fluticasone 50 MCG/ACT Suspension nasal spray Indications: Panlobular emphysema 1 spray by Nasal route daily. 16 mL 3 12/26/2022 Active Start: 12-01-2022 fluticasone 50 MCG/ACT Suspension nasal spray Indications: Panlobular emphysema SPRAY 1 SPRAY BY NASAL ROUTE DAILY. 16 mL 1 12/01/2022 Active Start: 11-22-2021 End: 11-22-2021 take 1 spray(s) nasal route once daily 1 spray, Nasal, DAILY, First dose on Sun11/22/21 at 0900, Until Discontinued Dose is for each nostril. Start: 11-10-2021 End: 11-11-2021 take 1 spray(s) nasal route once daily 1 spray, Nasal, DAILY, First dose on [facility] 11/10/21 at 0900, Until Discontinued Dose is for each nostril. Start: 03-04-2018 End: 11-07-2022 take 1 spray(s) nasal route once daily, then take 1 spray(s) nasal route once daily fluticasone 50 MCG/ACT Suspension nasal spray Indications: Panlobular emphysema 1 spray by Nasal route daily. 1 spray into each nostril daily 16 mL 1 11/07/2022 Active 12 hr guaiFENesin 600 mg extended release oral tablet (20 sources) Start: 07-26-2023 End: 01-08-2024 Mucinex 600 MG Tab SR 12 HR tablet SR 07/26/2023 01/08/2024 Discontinued (Patient Preference) Start: 11-25-2021 End: 05-29-2023 take 1 tablet by mouth twice daily guaiFENesin (Mucinex) 600 MG Tab SR 12 HR tablet SR Indications: Panlobular emphysema Take 1 tablet by mouth 2 times daily. 180 tablet 1 11/07/2022 05/29/2023 Discontinued Start: 11-21-2021 End: 11-22-2021 take 400 mg by mouth every six hours as needed guaiFENesin (ROBITUSSIN) oral solution 400 mg Start: 11-10-2021 End: 11-11-2021 take 400 mg by mouth every six hours as needed guaiFENesin (ROBITUSSIN) oral solution 400 mg Iohexol (OMNIPAQUE) 300 MG/ML vial 2 mL (2 sources) Start: 02-21-2023 End: 02-21-2023 Iohexol (OMNIPAQUE) 300 MG/ML vial 2 mL loratadine 10 mg oral tablet (3 sources) Start: 12-30-2020 End: 11-11-2021 take 1 tablet by mouth once daily loratadine (Claritin) 10 MG tablet Indications: Acute allergic rhinitis Take 1 tablet by mouth daily. 90 tablet 1 12/30/2020 11/11/2021 Discontinued magnesium oxide 500 mg oral tablet (20 sources) Start: 12-28-2022 End: 01-22-2025 take 1 tablet by mouth once daily Magnesium Oxide 500 MG tablet Indications: Cervicogenic headache Take 1 tablet by mouth daily. 90 tablet 1 12/28/2022 01/22/2025 Discontinued Start: 02-19-2018 take 1 tablet by jenna th once daily [facility] MAGNESIUM OXIDE 500 MG Tab TAKE 1 TABLET BY MOUTH EVERY DAY 30 tablet 3 02/19/2018 Active melatonin 3 mg oral tablet (3 sources) Start: 11-21-2021 End: 11-22-2021 melatonin tablet 6 mg Start: 11-10-2021 End: 11-11-2021 melatonin tablet 6 mg memantine hydrochloride 5 mg oral tablet (15 sources) D-xxlwhk-Y-aspartate Receptor Antagonist Start: 05-28-2023 End: 05-29-2023 take 1 tablet by mouth twice daily Memantine 5 MG tablet TAKE 1 TABLET BY MOUTH TWICE A DAY 180 tablet 1 05/28/2023 05/29/2023 Discontinued Start: 12-29-2022 take 1 tablet by jenna th twice daily Memantine 5 MG tablet Take 1 tablet by mouth 2 times daily. 60 tablet 3 12/29/2022 Active 1 ml methylPREDNISolone acetate 40 mg/ml injection (2 sources) Corticosteroid Start: 02-21-2023 End: 02-21-2023 methylPREDNISolone acetate (DEPO-MEDROL) injection 40 mg Multi-Vitamins tablet 1 tablet (1 source) Start: 11-22-2021 End: 11-22-2021 take 1 tablet by mouth once daily 1 tablet, Oral, DAILY, First dose on Sun11/22/21 at 0900, Until Discontinued Multiple Vitamin (multivitamin) capsule (20 sources) Start: 05-29-2023 End: 10-29-2023 take 1 capsule by mouth once daily Multiple Vitamin (multivitamin) capsule Indications: Cervicogenic headache Take 1 capsule by mouth daily. 90 Each 05/29/2023 10/29/2023 Discontinued Start: 05-29-2023 take 1 capsule by mo uth once daily Multiple Vitamin (multivitamin) capsule Indications: Cervicogenic headache Take 1 capsule by mouth daily. 90 Each 05/29/2023 Active End: 05-29-2023 take 1 capsule by mouth once daily Multiple Vitamin (multivitamin) capsule Take 1 capsule by mouth daily. 0 05/29/2023 Discontinued (Reorder) take 1 capsule by mo uth once daily Multiple Vitamin (multivitamin) capsule Take 1 capsule by mouth daily. 0 Active naproxen 500 mg oral tablet (1 source) Nonsteroidal Anti-inflammatory Drug Start: 03-03-2024 End: 04-20-2025 take 1 tablet by mouth twice daily Naproxen 500 mg tablet Discontinued 500 mg PO TWICE A DAY March 03, 2024 12:00am April 20, 2025 9:24am 24 hr nicotine 0.875 mg/hr transdermal system (20 sources) Cholinergic Nicotinic Agonist Start: 06-06-2022 End: 10-29-2023 apply 1 dose transdermal route every twenty-four hours nicotine 21 MG/24HR Patch [address] 1 PATCH ON SKIN EVERY 24 HOURS. 28 patch 3 06/06/2022 10/29/2023 Discontinued Start: 01-31-2022 apply 1 dose transde rmal route every twenty-four hours nicotine 21 MG/24HR Patch [address] 1 patch on skin every 24 hours. 28 patch 3 01/31/2022 Active Start: 11-21-2021 End: 11-22-2021 nicotine (NICODERM CQ) 14 MG /24HR patch 1 patch Start: 11-11-2021 End: 11-11-2021 nicotine (NICODERM CQ) 21 MG /24HR patch 1 patch Start: 01-18-2017 take 2 mg by mouth ( buccal) every two hours as needed nicotine 2 MG Lozenge 1 lozenge by Buccal route every 2 hours as needed.. 48 lozenge 2 01/18/2017 Active Nutritional Supplement Liquid (2 sources) End: 01-22-2025 take 2 drop(s) by mouth once daily Nutritional Supplement Liquid Take 2 drops by mouth daily. [place] Men[place] with elderberry, dillon root, marshmallow root, orange peel 01/22/2025 Discontinued take 2 drop(s) by mouth once sugey ly Nutritional Supplement Liquid Take 2 drops by mouth daily. [place] Men[place] with elderberry, dillon root, marshmallow root, orange peel Active ondansetron 4mg/2ml (ZOFRAN) injection 4 mg (3 sources) Start: 11-21-2021 End: 11-22-2021 take 4 mg intravenously every six hours as needed ondansetron 4mg/2ml (ZOFRAN) injection 4 mg Start: 11-10-2021 End: 11-11-2021 take 4 mg intravenously every six hours as needed ondansetron 4mg/2ml (ZOFRAN) injection 4 mg polyethylene glycol [id number] [id number] mg powder for oral solution (1 source) Osmotic Laxative Start: 11-21-2021 End: 11-22-2021 polyethylene glycol (MIRALAX) packet 17 g polyvinyl alcohol 0.014 ml/ml / povidone 6 mg/ml ophthalmic solution (3 sources) Start: 11-21-2021 End: 11-22-2021 take 1 drop(s) into the eye(s) every hour as needed Polyvinyl Alcohol-Povidone PF (REFRESH) ophthalmic solution 1 drop Start: 11-10-2021 End: 11-11-2021 take 1 drop(s) into the eye(s) every hour as needed Polyvinyl Alcohol-Povidone PF (REFRESH) ophthalmic solution 1 drop microencapsulated potassium chloride 20 meq extended release oral tablet (1 source) Start: 11-21-2021 End: 11-21-2021 potassium chloride (K-DUR) tablet ER 40 mEq Prochlorperazine (3 sources) Phenothiazine Start: 11-21-2021 End: 11-22-2021 take 1 tablet by mouth every six hours as needed prochlorperazine (COMPAZINE) tablet 10 mg Start: 11-10-2021 End: 11-11-2021 take 1 tablet by mouth every six hours as needed prochlorperazine (COMPAZINE) tablet 10 mg rosuvastatin calcium 10 mg oral tablet (20 sources) HMG-CoA Reductase Inhibitor Start: 11-14-2023 End: 02-27-2024 take 1 tablet by mouth once daily Rosuvastatin 10 MG tablet Indications: Current smoker , Mixed hyperlipidemia Take 1 tablet by mouth daily. 90 tablet 1 11/14/2023 02/27/2024 Discontinued (Patient Preference) Start: 05-08-2023 End: 05-29-2023 take 1 tablet by mouth once daily Rosuvastatin 10 MG tablet Indications: Current smoker , Mixed hyperlipidemia Take 1 tablet by mouth daily. 90 tablet 1 05/29/2023 Active Start: 11-09-2022 take 1 tablet by jenna once daily Rosuvastatin 10 MG tablet Indications: Current smoker , Mixed hyperlipidemia Take 1 tablet by mouth daily. 90 tablet 1 11/09/2022 Active 20 ml sodium chloride 9 mg/m l injection (7 sources) Start: 02-11-2025 End: 02-12-2025 10-100 mL, Intravenous, EVER Y 8 HOURS, First dose on Sun02/11/25 at 0800, Until Discontinued, NM Procedure Start: 02-21-2023 End: 02-21-2023 Sodium chloride (PF) 0.9 % i njection 2 mL Start: 01-17-2022 End: 01-17-2022 sodium chloride (PF) 0.9 % i njection 10-100 mL Start: 11-21-2021 End: 11-22-2021 sodium chloride 0.9% IV solu tion 250 mL Start: 11-10-2021 End: 11-11-2021 sodium chloride 0.9% IV solu tion 250 mL ubidecarenone 200 mg oral capsule (10 sources) Start: 03-03-2024 End: 04-20-2025 take 10 capsules by mouth once daily Coenzyme Q10 200 mg capsule Discontinued 400 mg PO DAILY March 03, 2024 12:00am April 20, 2025 9:24am Start: 10-20-2023 Coenzyme Q-10 200 MG capsule 10/20/2023 Active Start: 07-17-2023 End: 10-29-2023 take 1 capsule by mouth once daily Coenzyme Q10 (CoQ10) 400 MG capsule Take 1 capsule by mouth daily. 30 capsule 11 07/17/2023 10/29/2023 Discontinued Problems Active Problems Problem Classification Problem Date Documented Date Episodic/Chronic Cancer of bronchus; lung (13 sources) Adenocarcinoma of right lung; Translations: [Malignant neoplasm of unspecified part of right bronchus or lung] Onset: 04-09-2025 04-10-2025 Chronic Cancer; other and unspecified primary (3 sources) History of malignant neoplasm of bone; Translations: [Personal history of malignant neoplasm of bone] 12-29-2022 Episodic Cataract (1 source) Nuclear senile cataract; Translations: [Age-related nuclear cataract, bilateral] 04-30-2023 Chronic Chronic obstructive pulmonary disease and bronchiectasis (20 sources) Chronic obstructive lung disease; Translations: [Centriacinar emphysema] Onset: 05-15-2019 04-01-2018 Chronic Coagulation and hemorrhagic disorders (20 sources) Platelet storage pool defect; Translations: [Qualitative platelet defects] Onset: 04-18-2012 09-16-2017 Chronic Coronary atherosclerosis and other heart disease (1 source) Calcification of coronary artery; Translations: [Atherosclerotic heart disease of [place] coronary artery without angina pectoris] 03-17-2025 Chronic Disorders of lipid metabolism (20 sources) Mixed hyperlipidemia; Translations: [Mixed hyperlipidemia] Onset: 12-28-2016 12-28-2016 Chronic Esophageal disorders (20 sources) Gastroesophageal reflux disease; Translations: [Gastro-esophageal reflux disease without esophagitis] Onset: 08-21-2011 10-26-2011 Chronic Headache; including migraine (20 sources) Occipital headache; Translations: [Chronic paroxysmal hemicrania] Onset: 05-08-2010 Resolved: 04-18-2012 04-18-2012 Chronic Immunizations and screening for infectious disease (2 sources) Rheumatoid factor positive; Translations: [Other specified abnormal immunological findings in serum] Episodic Inflammation; infection of eye (except that caused by tuberculosis or sexually transmitteddisease) (1 source) Hordeolum externum of left lower eyelid; Translations: [Hordeolum externum left lower eyelid] 04-30-2023 Episodic Malaise and fatigue (20 sources) Fatigue; Translations: [Chronic fatigue, unspecified] Onset: 12-28-2016 12-28-2016 Chronic Nausea and vomiting (3 sources) Nausea; Translations: [Nausea] Onset: 03-06-2025 01-22-2025 Episodic Nutritional deficiencies (20 sources) Vitamin D deficiency; Translations: [Vitamin D deficiency, unspecified] Onset: 02-23-2020 02-23-2020 Chronic Osteoporosis (20 sources) Osteoporosis; Translations: [Age-related osteoporosis without current pathological fracture] Onset: 05-08-2010 04-19-2012 Chronic Other bone disease and musculoskeletal deformities (1 source) Posterior calcaneal exostosis; Translations: [Juvenile osteochondrosis of tarsus, right ankle] 12-29-2022 Chronic Other circulatory disease (9 sources) Ectatic coronary artery; Translations: [Other specified disorders of arteries and arterioles] Onset: 03-10-2025 03-10-2025 Chronic Other circulatory disease (2 sources) Other specified disorders of arteries and arterioles; Translations: [Other specified disorders of arteries and arterioles] Onset: 03-10-2025 Chronic Other connective tissue disease (1 source) Swollen thumb; Translations: [Other specified soft tissue disorders] 01-08-2024 Episodic Other connective tissue disease (1 source) Trigger thumb of left hand; Translations: [Trigger thumb, left thumb] 02-04-2024 Episodic Other connective tissue disease (3 sources) Pain in left leg; Translations: [PAIN IN LEFT LEG] Onset: 03-16-2024 Episodic Other fractures (1 source) Unspecified fracture of left pubis, initial encounter for closed fracture; Translations: [UNS FX LT PUBIS INITIAL CLOS FX] Onset: 03-20-2024 Episodic Other injuries and conditions due to external causes (1 source) History of injury of eye region; Translations: [Personal history of other (healed) physical injury and trauma] 04-30-2023 Episodic Other lower respiratory disease (20 sources) Nodule of lung; Translations: [Solitary pulmonary nodule] Onset: 03-10-2025 Episodic Other lower respiratory disease (1 source) History of chronic obstructive airway disease; Translations: [Personal history of other diseases of the respiratory system] 03-11-2024 Episodic Other lower respiratory disease (2 sources) Solitary pulmonary nodule; Translations: [Solitary pulmonary nodule] Onset: 03-10-2025 Episodic Other non-traumatic joint disorders (1 source) Acute ankle pain; Translations: [Pain in right ankle and joints of right foot] 01-25-2023 Episodic Other nutritional; endocrine; and metabolic disorders (1 source) Hypercalcemia; Translations: [Hypercalcemia] 10-30-2023 Chronic Other skin disorders (1 source) Foot callus; Translations: [Corns and callosities] 03-06-2023 Episodic Other upper respiratory disease (20 sources) Allergic rhinitis due to pollen; Translations: [Allergic rhinitis due to pollen] Onset: 01-18-2017 01-18-2017 Chronic Other upper respiratory disease (20 sources) Allergic disposition; Translations: [Other allergic rhinitis] Onset: 12-28-2016 12-28-2016 Chronic Other upper respiratory infections (20 sources) Chronic maxillary sinusitis; Translations: [Chronic maxillary sinusitis] Onset: 06-29-2017 06-29-2017 Chronic Residual codes; unclassified (1 source) Tobacco user; Translations: [Tobacco abuse] Onset: 05-11-2010 04-19-2012 Chronic Spondylosis; intervertebral disc disorders; other back problems (3 sources) Degeneration of cervical intervertebral disc; Translations: [Other cervical disc degeneration, unspecified cervical region] 01-09-2023 Chronic Substance-related disorders (20 sources) Smoker; Translations: [Nicotine dependence, unspecified, uncomplicated] Onset: 05-11-2010 2021 Chronic Superficial injury; contusion (1 source) Contusion of chest; Translations: [Contusion of unspecified front wall of thorax, initial encounter] 03-11-2024 Episodic Unclassified (20 sources) BASE MYC3 [facility] SMOKING CESSATION ON RAMP PROBLEM Onset: 11-07-2022 11-07-2022 Unclassified (1 source) ERRONEOUS ENCOUNTER--DISREGARD 05-01-2023 Unclassified (12 sources) Smoker; Translations: [Smoking] Onset: 05-11-2010 2021 Unclassified (12 sources) Bowel Prep Onset: 01-22-2025 01-22-2025 Past or Other Problems Problem Classification Problem Date Documented Da te Episodic/Chronic Abdominal pain (20 sources) Right upper quadrant pain; Translations: [Right upper quadrant pain] Onset: 06-06-2019 06-21-2020 Episodic Administrative/social admission (20 sources) General problem AND/OR complaint; Translations: [Person with feared health complaint in whom no diagnosis is made] Onset: 06-06-2019 06-06-2019 Episodic Allergic reactions (1 source) Allergic disposition; Translations: [Environmental and seasonal allergies] Onset: 12-28-2016 12-28-2016 Episodic Cancer of bone and connective tissue (20 sources) Chondrosarcoma; 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, unspecified] Onset: 05-08-2010 Resolved: 04-18-2012 04-18-2012 Chronic Diabetes mellitus without complication (20 sources) Hyperglycemia; Translations: [Impaired fasting glucose] Onset: 06-22-2020 06-22-2020 Episodic Disorders of teeth and jaw (20 sources) Dental caries; Translations: [Dental caries, unspecified] Onset: 11-23-2017 11-23-2017 Episodic Headache; including migraine (20 sources) Cervicogenic headache; Translations: [Cervicogenic headache] Onset: 05-08-2010 Resolved: 04-18-2012 10-29-2017 Episodic Malaise and fatigue (20 sources) Asthenia; Translations: [Fatigue] Onset: 12-28-2016 09-16-2017 Episodic Mood disorders (20 sources) Mood disorders Onset: 09-22-2021 Resolved: 04-14-2025 09-22-2021 Nonspecific chest pain (20 sources) Chest pain; Translations: [Other chest pain] Onset: 07-30-2020 07-30-2020 Episodic Other and unspecified benign neoplasm (20 sources) Lipoma of upper limb; Translations: [Benign lipomatous neoplasm of skin and subcutaneous tissue of unspecified limb] Onset: 12-28-2016 12-28-2016 Episodic Other and unspecified benign neoplasm (20 sources) History of polyp of colon; Translations: [Personal history of colonic polyps] Onset: 04-01-2018 05-02-2018 Episodic Other connective tissue disease (20 sources) Pain in right foot; Translations: [Pain in right foot] Onset: 04-01-2018 04-01-2018 Episodic Other connective tissue disease (20 sources) Neuropathic pain; Translations: [Neuralgia and neuritis, unspecified] Onset: 12-28-2016 12-28-2016 Episodic Other connective tissue disease (1 source) Heel pain; Translations: [Chronic pain of right heel] Onset: 03-15-2017 03-15-2017 Episodic Other connective tissue disease (20 sources) Muscle pain; Translations: [Myalgia, unspecified site] Onset: 10-20-2017 10-20-2017 Episodic Other connective tissue disease (20 sources) Chronic pain of right foot; Translations: [Pain in right foot] Onset: 03-15-2017 02-23-2020 Episodic Other connective tissue disease (20 sources) Myofascial pain; Translations: [Myalgia, other site] Onset: 11-27-2022 11-27-2022 Episodic Other injuries and conditions due to external causes (20 sources) Tick bite; Translations: [Insect bite (nonvenomous) of abdominal wall, initial encounter] Onset: 06-29-2017 06-29-2017 Episodic Other lower respiratory disease (20 sources) Rib pain; Translations: [Pleurodynia] Onset: 05-08-2010 03-05-2018 Episodic Other lower respiratory disease (20 sources) Hypoxia; Translations: [Hypoxemia] Onset: 11-21-2021 11-21-2021 Episodic Other nervous system disorders (1 source) Cubital tunnel syndrome; Translations: [Cubital tunnel syndrome] Onset: 05-08-2010 Resolved: 04-18-2012 04-18-2012 Chronic Other nervous system disorders (20 sources) Ulnar nerve 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; Translations: [Lesion of ulnar nerve, unspecified upper limb] Onset: 05-08-2010 Resolved: 04-18-2012 09-18-2021 Chronic Other nutritional; endocrine; and metabolic disorders (20 sources) Abnormal weight loss; Translations: [Unintentional weight loss] Onset: 03-04-2018 Resolved: 04-01-2018 04-01-2018 Episodic Other nutritional; endocrine; and metabolic disorders (20 sources) Underweight; Translations: [Underweight] Onset: 12-28-2016 12-28-2016 Episodic Other nutritional; endocrine; and metabolic disorders (20 sources) Recent weight loss; Translations: [Abnormal weight loss] Onset: 04-01-2018 Resolved: 04-01-2018 04-01-2018 Episodic Other screening for suspected conditions (not mental disorders or infectious disease) (20 sources) Liver function tests abnormal; Translations: [Other specified abnormal findings of blood chemistry] Onset: 05-04-2010 04-18-2012 Episodic Other skin disorders (20 sources) Nodule of skin of left forearm; Translations: [Localized swelling, mass and lump, left upper limb] Onset: 06-21-2020 06-21-2020 Episodic Other skin disorders (20 sources) Mass of forearm; Translations: [Localized swelling, mass and lump, left upper limb] Onset: 06-21-2020 06-21-2020 Episodic Other skin disorders (12 sources) Localized swelling, mass and lump, left upper limb; Translations: [Localized superficial swelling, mass, or lump] Onset: 06-21-2020 06-21-2020 Episodic Screening and history of mental health and substance abuse codes (10 sources) Patient encounter status; Translations: [Encounter for screening for depression] Onset: 01-22-2025 Episodic Spondylosis; intervertebral disc disorders; other back problems (20 sources) Chronic low back pain; Translations: [Cervico-occipital neuralgia] Onset: 10-20-2017 10-20-2017 Episodic Unclassified (5 sources) Patient encounter status; Translations: [Routine health maintenance] Onset: 05-04-2010 05-28-2012 Viral infection (20 sources) Disease caused by 2019-nCoV; Translations: [COVID-19] Onset: 05-20-2021 05-20-2021 Episodic Results Test Name Value Interpretation Reference Range Facility Radiation Oncology Visiton 1 Radiation Oncology Visit [facility] [address] [place] [address] OFFICE VISIT Date of Service: 04/20/25918 MR#: [id number] Acct: [id number] Name: CHIN WHITING Rep #: [id number] : 1960 From: Roddy Garay DO Age/Sex: 64/F Location: [facility] [place] Status: Signed Intake Vital Signs 03/03/24 12:16 04/20/25 09:30 Height 5 ft 4 in 5 ft 4 in Weight: 98 lb 7 oz 98 lb 7 oz BMI 16.9 16.9 BP 131/72 H Blood Pressure Location Rt brachial Position Sitting Respiration 16 Pulse 87 Pulse Source Monitor Temp 96.4 F L Temperature Source Temporal Artery Pulse Oximetry (%) 97 Oxygen Delivery Method room air Intake Is patient in pain?: No Allergies albuterol Allergy (Unknown, Verified 04/20/25 09:23) tachycardia azithromycin Adverse Reaction (Verified 04/20/25 09:23) Anaphylaxis Medications ???Medication ???Instructions ???Recorded ???Confirmed ???Type mometasone-formoterol HFA 100 2 puff inhalation Q12.TCU 03/03/24 04/20/25 History mcg-5 mcg/actuation aerosol inhaler (Dulera) ondansetron 4 mg disintegrating 4 mg PO Q8H 04/15/25 04/20/25 Hist ory tablet dimethicone-zinc oxide-collidal spray topical 04/20/25 04/20/25 Hi story silver 20 %-25 %-25 PPM topical spray flavoring agent (bulk) ea miscellaneous 04/20/25 04/20/25 History mullien leaf tea PO 04/20/25 History mushroom coffe PO 04/20/25 History soursop tea PO 04/20/25 History Central Venous Access Central Venous Access: No PFSH PFSH Medical History (Updated 04/20/25 @ 10:[address] Roddy Garay, DO) History of pneumonia Pelvic fracture Migraines Heel fracture Depression Adenoid hypertrophy Chondrosarcoma Cardiac angina Back pain Lung cancer Cancer of cartilage (articular) (joint) COPD (chronic obstructive pulmonary disease) Home Medications ???Medication ???Instructions ???Recorded ???Last Taken ???Type mometasone-formoterol HFA 100 2 puff inhalation Q12.TCU 03/03/24 Unknown History mcg-5 mcg/actuation aerosol inhaler (Dulera) ondansetron 4 mg disintegrating 4 mg PO Q8H 04/15/25 Unknown Histo ry tablet dimethicone-zinc oxide-collidal spray topical 04/20/25 Unknown His tory silver 20 %-25 %-25 PPM topical spray flavoring agent (bulk) ea miscellaneous 04/20/25 Unknown History mullien leaf tea PO 04/20/25 Unknown History mushroom coffe PO 04/20/25 Unknown History soursop tea PO 04/20/25 Unknown History Allergy/AdvReac Type Severity Reaction Status Date / Time albuterol Allergy Unknown tachycardia Verified 04/20/25 09:23 azithromycin AdvReac Anaphylaxis Verified 04/20/25 09:23 Family History (Updated 04/15/25 @ 13:49 by Nai Menjivar) Brother Aneurysm Son Clotting disorder Heart disease Grandfather Diabetes Mother Diabetes Hypertension Father Hemochromatosis Surgical History (Updated 04/15/25 @ 13:10 by Nai Menjivar) Hx of tonsillectomy History of surgery on arm Hx of hysterectomy Hx of surgical amputation of finger History of lung biopsy Hx of colonoscopy Hx of tooth extraction S/P partial lobectomy of lung Social History (Updated 04/15/25 @ 13:51 by Nai Menjivar) Smoking Status: Former smoker Tobacco: How many years used: 30 substance use type: marijuana Referring Provider: Zain Khanna MD PhD Diagnosis: Chin Whiting is a 64 year-old female diagnosed with two NSCLC one in the upper and one in lower right lung s/p PET scan (02/11/2025), CT chest without contrast (03/06/2025), and navigational bronchoscopy with biopsies (04/03/2025). History of Present Illness: 03/03/2024: Patient completed CT chest/abdomen without contrast.??? This demonstrated diffuse emphysematous changes with bullous formation, calcified granuloma in the left lower lobe.??? Normal mediastinum.??? No other abnormalities are appreciated. 02/11/2025: PET scan was performed.??? This demonstrated 2 moderately metabolic right lung nodule suspicious for neoplastic disease.??? In the right upper lobe there is a nodule measuring 6 x 7 mm and SUV of 4.2 and also in the right lower lobe there is a new lesion measuring 3 x 4 mm with a SUV of 3.5.??? There is a medial right lower lobe lymph node conglomerate which does not demonstrate significant FDG uptake and no evidence of adenopathy or other abnormalities. 03/06/2025: Patient completed CT chest without contrast.??? This demonstrated postsurgical changes from a left upper lobe wedge resection with stable biapical scarring.??? Previously measured medial right lower lobe nodule has decreased in size measuring 9 x 7 mm previously measuring 13 x 9 mm in 2023 and did not show hypermetabolic activity on PET scan.??? There is increased size of a more lateral right lower lobe nodule measurin (more content not included)... Normal [facility] PULMOL (MOLECULAR/FISH PANEL ) + PD-L1 IHC (KEYTRUDA), REQUESTon 04-07-2025 Sample tested [id number] Normal [facility] Comment on above: Performed By: #### L [id number] #### [facility] (DEFAULT) [address] [place] [address] Sendout Result The tissue block(s) was submitted to the [facility] clinical histology laboratory for additional processing and staining. Normal [facility] Comment on above: Performed By: #### L [id number] #### [facility] (DEFAULT) [address] [place] [address] XR CHEST 1 VIEW PORTABLEon 0 04-03-2025 XR CHEST 1 VIEW PORTABLE EXAM: XR CHEST 1 VIEW PORTABLE, 04/02/2025 16:44 PM COMPARISON: XR CHEST PA AND LATERAL January 04, 2023, CT chest March 06, 2025. CLINICAL INDICATIONS: rm 230, r/o pneumo RELEVANT CLINICAL HISTORY: FINDINGS: (Adequate technique) Implanted Devices: Suture lines overlie the left upper lung. Thorax: Apical scarring, previously similar exam. Emphysematous changes with pulmonary hyperinflation as seen on prior. Few calcified granulomas. No pneumothorax. No consolidative process. Please refer to prior CT chests for better characterization of nodules previously seen. IMPRESSION: 1. Hyperinflated lung volumes. 2. No pneumothorax. I personally viewed and interpreted these images and I have reviewed and approved this report. Normal [facility] CYTOLOGY, NON-ENERGY SCHEDULER - FNA ONLY on 04-02-2025 CYTOLOGIC DIAGNOSIS Normal [facility] Comment on above: Result Comment: A. L DAYAN NODULE, RIGHT LOWER LOBE, FNA (CYTOLOGY AND CELL BLOCK): FINAL DIAGNOSIS: Positive for Malignancy, Adenocarcinoma Note: The cell block is inadequate for ancillary testing. Please correlate with the concurrent biopsy ([id number]). Immediate Study: Adequacy/Preliminary Diagnosis: Adequate Kymberly Melissa, CT (ASCP), April 02, 2025 B. LUNG NODULE, RIGHT UPPER LOBE, FNA (CYTOLOGY AND CELL BLOCK): FINAL DIAGNOSIS: Non-Diagnostic Due To Insufficient Cellular Material Immediate Study: Adequacy/Preliminary Diagnosis: Not Adequate Kymberly Melissa, CT (ASCP), April 02, 2025 C. STATION 7 LYMPH NODE, FNA (CYTOLOGY AND CELL BLOCK): FINAL DIAGNOSIS: No Malignant Cells Are Identified Lymphocytes Present Immediate Study: Adequacy/Preliminary Diagnosis: Not Adequate Kymberly Melissa, CT (ASCP), April 02, 2025 FNA Performed By: Clinician at 1055 EDT Performed By: #### N ONGNFNA #### [facility] (DEFAULT) [address] [place] [address] Clinical History 64 year old female w ith slowly growing nodules in RLL of lung and RUL Lung. 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 (2007) Normal [facility] Comment on above: Performed By: #### N ONGNFNA #### [facility] (DEFAULT) [address] [place] [address] FISH ALK/ROS1/MET, ACCESSION INGon 04-02-2025 AP BLOCK/SLIDE ID [id number] B1 Normal [facility] Comment on above: Performed By: #### L [id number] #### [facility] (DEFAULT) [address] [place] [address] Performed By: #### H YO, CMPN #### [facility] (DEFAULT) [address] [place] [address] AP SLIDE SCANNED Normal [facility] Comment on above: Performed By: #### L [id number] #### [facility] (DEFAULT) [address] [place] [address] Performed By: #### H YO, CMPN #### [facility] (DEFAULT) [address] [place] [address] APCP HISTOLOGY COMMENTS [facility] Comment on above: Performed By: #### L [id number] #### [facility] (DEFAULT) [address] [place] [address]608 Performed By: #### H YO, CMPN #### [facility] (DEFAULT) [address] [place] [address] LOWER RESPIRATORY CULTURE, B ACTERIALon 04-02-2025 Bacteria identified Cx Nom (Unsp spec) NO GROWTH DAY 2 OF 2 Normal [facility] Comment on above: Performed By: #### R ES #### [facility] (DEFAULT) [address] [place] [address] Microscopic observation Gram stain Nom (Unsp spec) [facility] Comment on above: Result Comment: Cyto centrifuge preparation Neutrophils, None Acellular debris present No organisms seen Performed By: #### R ES #### [facility] (DEFAULT) [address] [place] [address] NAVIGATIONAL BRONCHOSCOPYon 04-02-2025 [facility] Patient Name: Chin Whiting Procedure Date: 04/02/2025 2:36 PM Date of : 1960 Admit Type: Outpatient Age: 64 Room: Bronch Suite Gender: Female Note Status: Finalized Procedure: Bronchoscopy Indications: Right upper lobe nodule, Right lower lobe nodule Providers: GEOVANNY Robertson (Doctor), Laura Osman, Health Care Analyst (Health Care Analyst), Tex Springer, Health Care Analyst (Health Care Analyst) Referring MD: GEOVANNY Robertson (Referring MD) Requesting Physician: Medicines: General Anesthesia Complications: No immediate complications Procedure: Pre-Anesthesia Assessment: - A History and Physical has been performed. Patient meds and allergies have been reviewed. The risks and benefits of the procedure and the sedation options and risks were discussed with the patient. All questions were answered and informed consent was obtained. Patient identification and proposed procedure were verified prior to the procedure by the physician, the nurse, the anesthesiologist and the front office specialist in the pre-procedure area in the procedure room. Mental Status Examination: alert and oriented. Airway Examination: normal oropharyngeal airway and Mallampati Class II (the uvula but not tonsillar pillars visualized). Respiratory Examination: clear to auscultation. CV Examination: regular rate and rhythm. ASA Grade Assessment: II - A patient with mild systemic disease. After reviewing the risks and benefits, the patient was deemed in satisfactory condition to undergo the procedure. The anesthesia plan was to use general anesthesia. Immediately prior to administration of medications, the patient was re-assessed for adequacy to receive sedatives. The heart rate, respiratory rate, oxygen saturations, blood pressure, adequacy of pulmonary ventilation, and response to care were monitored throughout the procedure. The physical status of the patient was re-assessed after the procedure. After obtaining informed consent, the Bronchoscope [id number] was introduced through the right nostril and advanced to the tracheobronchial tree. the Bronchoscope EBUS 1676 was introduced through the and advanced to the. The procedure was accomplished without difficulty. Findings: The endotracheal tube is in good position. The visualized portion of the trachea is of normal caliber. The philip is sharp. The tracheobronchial tree was examined to at least the first subsegmental level. Bronchial mucosa and anatomy are normal; there are no endobronchial lesions, and no secretions. Robotic bronchoscopy utilizing the Prime Grid robot platform was performed. The CT scan was used for planning purposes. A virtual bronchoscopic image was generated using the planning software. The targets in the right upper lobe and in the right lower lobe (located in the peripheral one-third of the lung) were identified and marked. A solid nodule 10 mm in size was found and a pathway was created. CT-body registration was then achieved per standard workflows. Navigation to the lesions were performed. Transbronchial needle aspirations of a solid nodule were performed in the right upper lobe and in the right lower lobe using a fine needle and sent for routine cytology. The procedure was guided by fluoroscopy and CT scan. Transbronchial needle aspiration technique was selected because the sampling site was not visible endoscopically. The sampling device penetrated the full thickness of the bronchial wall to obtain the needle aspiration of lung tissue. Positioning centrally (in relation to the lesion) was confirmed using the Olympus radial ultrasound probe catheter. Advanced imaging using cone beam CT (3D reconstructions were performed on an independent workstation. I personally interpreted the cone beam CT and 3D reconstructions) was used to further target the lesion(s). Based on this radiographic infor (more content not included)... LAB, [facility] Radiology Study observation (narrative) [facility] SURG PATH REQUESTon 04-02-20 Addendum Normal [facility] Comment on above: Result Comment: PD-L 1 IHC 22C3 pharmDx Result, TPS: <1% COMMENT: PULMOL molecular/FISH and PD-L1 IHC were requested by Savi Vazquez on 04/07/25 and performed on recuts of block B1. See separately reported tests in [facility] Genetic Testing folder for full molecular and FISH results. PD-L1 protein expression in NSCLC is determined by manual quantification and reported as Tumor Proportion Score (TPS). TPS is the percentage of viable tumor cells showing partial or complete membrane staining at any intensity. PD-L1 expression is interpreted as positive if TPS >= 1% or negative if TPS < 1%. PD-L1 expression level TPS >= 50% may be of interest to treating physician but does not determine eligibility for KEYTRUDA? (pembrolizumab) monotherapy. The sample is adequate if >= 100 tumor cells are present. All controls show appropriate reactivity. All immunohistochemistry, in situ hybridization, and histochemical tests were developed by and are performed at the [facility], [facility], [id number], [place] [address]. All tests reported here, except those addressing HER2 , ALK and PD-L1 expression as predictive markers, have not been cleared by or approved by the US Food and Drug Administration (FDA). The laboratory is regulated under CLIA as qualified to perform high-complexity testing. The tests are used for clinical purposes. They should not be regarded as investigational or for research. Addendum electronically signed by Cortez Healy MD on 04/08/2025 at 1503 EDT Performed By: #### S URGP #### [facility] (DEFAULT) [address] [address] Case Report [facility] Comment on above: Result Comment: Surg ical Pathology Report Case: [id number] Authorizing Provider: GEOVANNY Gonzales Collected: 04/02/2025 04:23 PM Ordering Location: [facility], [facility]–1983 Received: 04/02/2025 05:39 PM Hospital Pathologist: Cortez Healy MD Specimens: A) - Lung bx B) - Lung bx Performed By: #### S URGP #### [facility] (DEFAULT) [address] [address] Result Comment: [facility] Cytology Report Case: [id number] Authorizing Provider: GEOVANNY Gonzales Collected: 04/02/2025 04:23 PM Ordering Location: [facility], [facility]–1983 Received: 04/02/2025 05:03 PM Hospital Pathologist: Pretty uL MD Specimens: A) - LUNG FNA, RLL Lung Nodule B) - LUNG FNA, RUL Lung Nodule C) - LYMPH NODE FNA, Station 7 LN Performed By: #### N ONGNFNA #### [facility] (DEFAULT) [address] [address] Clinical History Associated Diagnosis : Right upper lobe pulmonary nodule. [R91.9] - primary. Clinical History: R/O MALIGANNCY. [facility] Comment on above: Performed By: #### S URGP #### [facility] (DEFAULT) [address] [address] Diagnosis Comments Principal Mechanical Engineer block : B1>B2 Normal [facility] Comment on above: Performed By: #### S URGP #### [facility] (DEFAULT) [address] [place] [address] Gross Description Normal [facility] Comment on above: Result Comment: The specimen is received in two properly labeled containers with the patient's name and accession number. A. The specimen is designated "RUL nodule cryo biopsy" and consists of three red, irregularly-shaped soft tissue fragments with attached blood clots ranging from 0.4 cm up to 0.5 cm in greatest dimension. TE 2 B. The specimen is designated "RLL nodule cryo biopsy" and consists of four pale hope-red, irregularly-shaped soft tissue fragments ranging from 0.2 cm up to 0.5 cm. TE 2 Lab Use Only: JobID [id number] Grosser for this case was: Rupali Carmona Performed By: #### S URGP #### [facility] (DEFAULT) [address] [place] [address] Result Comment: A) R LL Lung Nodule FNA 6 ml clear pink fld RPMI 4 slides DQ stain / 4 slides pap stain 1 CB Time specimen placed in formalin: 04/02/25 at 17:29 Time specimen removed from formalin: 04/02/25 at 20:40 Total Fixation Time: 3 hours 11 minutes B) RUL Lung Nodule FNA 6 ml hazy pink fld RPMI 2 slides DQ stain / 2 slides pap stain 1 CB Time specimen placed in formalin: 04/02/25 at 17:30 Time specimen removed from formalin: 04/02/25 at 20:40 Total Fixation Time: 3 hours 10 minutes C) Station 7 LN FNA 7 ml hazy pink fld RPMI 1 slide DQ stain / 1 slide pap stain 1 CB Time specimen placed in formalin: 04/02/25 at 17:31 Time specimen removed from formalin: 04/02/25 at 20:40 Total Fixation Time: 3 hours 9 minutes Performed By: #### N ONGNFNA #### [facility] (DEFAULT) [address] [place] [address] Microscopic Description Normal [facility] Comment on above: Result Comment: A mi croscopic examination was performed. All controls show appropriate reactivity. All immunohistochemistry (IHC), in situ hybridization (DEBORAH), and histochemical tests were developed by and are performed at the [facility], Histology and IHC Lab, [address] [place] [address]. All Immunofluorescent (IF) tests were developed by and are performed at the [facility], Renal Division, [address] [place] [address]. All tests reported here, except for PD-L1, have not been cleared by or approved by the US Food and Drug Administration (FDA). The laboratory is regulated under CLIA as qualified to perform high-complexity testing. The tests are used for clinical purposes. They should not be regarded as investigational or for research. Performed By: #### S URGP #### [facility] (DEFAULT) [address] [place] [address] Pathologic Diagnosis [facility] Comment on above: Result Comment: A. L dayan, right upper lobe, nodule, cryo biopsy: Atypical glandular proliferation, suspicious for adenocarcinoma. Note. The diagnosis is supported on immunostains for CK7, NapsinA and TTF1 (block A1). B. Lung, right lower lobe, nodule, cryo biopsy: Pulmonary adenocarcinoma with papillary features. Note. The diagnosis is supported on immunostains for CK7, NapsinA and TTF1 (block B1). at 0954 EDT Performed By: #### S URGP #### [facility] (DEFAULT) [address] [place] [address] Professional Interpretation Performed at: [facility] Comment on above: Result Comment: [facility] For Immediate Release to Patient's MyChart? Yes [address] [place] [address] Performed By: #### S URGP #### [facility] (DEFAULT) [address] [place] [address] Result Comment: For Immediate Release to Patient's MyChart? Yes [facility] [address] [place] [address] Performed By: #### N ONGNFNA #### [facility] (DEFAULT) [address] [place] [address] MAMMO SCREENING WITH TERI BI LATERALon 03-11-2025 MAMMO SCREENING WITH TERI BILATERAL EXAM: MAMMO SCREENING WITH TERI BILATERAL, 03/11/2025 16:21 PM CLINICAL INDICATIONS: Screening COMPARISON: MAMMO SCREENING WITH TERI BILATERAL January 09, 2023, MAMMO DIAGNOSTIC WITH TERI BILATERAL September 22, 2021, MAMMO DIAGNOSTIC WITH TERI BILATERAL September 02, 2020, MAMMO SPECIAL VIEWS WITH TERI BILATERAL September 01, 2019, MAMMO SCREENING BILATERAL June 30, 2019 TECHNIQUE: 3-D MLO and CC digital tomosynthesis images were obtained of the bilateral breasts. Synthetic 2-D images were generated from the tomosynthesis data. Computer aided detection was utilized. FINDINGS: Breast Density: There are scattered areas of fibroglandular density. There are no suspicious masses, calcifications, or architectural distortions. IMPRESSION: No mammographic evidence of malignancy. BI-RADS: 1: Negative Recommendation: Routine mammography. Recommendation Laterality: Bilateral The current National Comprehensive Cancer Network and [employer] guidelines recommend women undergo a screening mammogram every year over the age of 40 and continue mammographic screening as long as they are in good health. Screening mammography under age 40 may occur for women who are at increased risk for breast cancer. [facility] Facility: [facility], [address] [place] [address], Table formatting from the original result was not included. MAMMO STANDARD RISK MQSA SITE BEGIN [place] [address] MQSA SITE END Normal [facility] MG Breast - bilateral Screen ingon 03-11-2025 IMPRESSION: No mammographic evidence of malignancy. BI-RADS: 1: Negative Recommendation: Routine mammography. Recommendation Laterality: Bilateral The current National Comprehensive Cancer Network and [employer] guidelines recommend women undergo a screening mammogram every year over the age of 40 and continue mammographic screening as long as they are in good health. Screening mammography under age 40 may occur for women who are at increased risk for breast cancer. [facility] Facility: [facility], [address] [place] [address], OLOGY EXAM: MAMMO SCREENIN G WITH TERI BILATERAL, 03/11/2025 16:21 PM CLINICAL INDICATIONS: Screening COMPARISON: MAMMO SCREENING WITH TERI BILATERAL January 09, 2023, MAMMO DIAGNOSTIC WITH TERI BILATERAL September 22, 2021, MAMMO DIAGNOSTIC WITH TERI BILATERAL September 02, 2020, MAMMO SPECIAL VIEWS WITH TERI BILATERAL September 01, 2019, MAMMO SCREENING BILATERAL June 30, 2019 TECHNIQUE: 3-D MLO and CC digital tomosynthesis images were obtained of the bilateral breasts. Synthetic 2-D images were generated from the tomosynthesis data. Computer aided detection was utilized. FINDINGS: Breast Density: There are scattered areas of fibroglandular density. There are no suspicious masses, calcifications, or architectural distortions. RADIOLOGY Dick Vazquez M D - 03/11/2025 EXAM: MAMMO SCREENING WITH TERI BILATERAL, 03/11/2025 16:21 PM CLINICAL INDICATIONS: Screening COMPARISON: MAMMO SCREENING WITH TERI BILATERAL January 09, 2023, MAMMO DIAGNOSTIC WITH TERI BILATERAL September 22, 2021, MAMMO DIAGNOSTIC WITH TERI BILATERAL September 02, 2020, MAMMO SPECIAL VIEWS WITH TERI BILATERAL September 01, 2019, MAMMO SCREENING BILATERAL June 30, 2019 TECHNIQUE: 3-D MLO and CC digital tomosynthesis images were obtained of the bilateral breasts. Synthetic 2-D images were generated from the tomosynthesis data. Computer aided detection was utilized. FINDINGS: Breast Density: There are scattered areas of fibroglandular density. There are no suspicious masses, calcifications, or architectural distortions. IMPRESSION IMPRESSION: No mammographic evidence of malignancy. BI-RADS: 1: Negative Recommendation: Routine mammography. Recommendation Laterality: Bilateral The current National Comprehensive Cancer Network and [employer] guidelines recommend women undergo a screening mammogram every year over the age of 40 and continue mammographic screening as long as they are in good health. Screening mammography under age 40 may occur for women who are at increased risk for breast cancer. [facility] Facility: [facility], [address] [place] [id number], [facility] Radiology Study observation (narrative) [facility] MG Breast - bilateral Screen ingOrdered By: Dick Vazquez on 03-11-2025 [facility] Work Phone: CBC AND ELECTRONIC DIFFon Basophils (Bld) [#/Vol] 0.04 10*3/uL Normal 0.00-0.15 [facility] Comment on above: Performed By: #### H YO, CMPN #### [facility] (DEFAULT) [address] [place] [address] Basophils/100 WBC (Bld) 0.5 % Normal [facility] Comment on above: Performed By: #### H YO, CMPN #### [facility] (DEFAULT) [address] [place] [address] DIFF STATUS Electronic Differential Normal [facility] Comment on above: Performed By: #### H YO, CMPN #### [facility] (DEFAULT) [address] [place] [address] Eosinophils (Bld) [#/Vol] 0.18 10*3/uL Normal 0.00-0.42 [facility] Comment on above: Performed By: #### H YO, CMPN #### [facility] (DEFAULT) [address] [place] [address] Eosinophils/100 WBC (Bld) 2.3 % Normal [facility] Comment on above: Performed By: #### H YO, CMPN #### [facility] (DEFAULT) [address] [place] [address] Hematocrit (Bld) [Volume fraction] 49.5 % High 34.9-44.3 [facility] Comment on above: Performed By: #### H YO, CMPN #### [facility] (DEFAULT) [address] [place] [address] Hemoglobin (Bld) [Mass/Vol] 15.7 g/dL High 11.4-15.2 [facility] Comment on above: Performed By: #### H YO, CMPN #### [facility] (DEFAULT) [address] [place] [address] Immature Grans % 0.1 % Normal [facility] Comment on above: Performed By: #### H YO, CMPN #### [facility] (DEFAULT) [address] [address] Immature Grans Absolute < Normal <=0.08 [facility] Comment on above: Performed By: #### H YO, CMPN #### [facility] (DEFAULT) [address] [place] [address] Lymphocytes (Bld) [#/Vol] 2.42 10*3/uL Normal 1.16-3.51 [facility] Comment on above: Performed By: #### H YO, CMPN #### [facility] (DEFAULT) [address] [address] Lymphocytes/100 WBC (Bld) 30.9 % Normal [facility] Comment on above: Performed By: #### H YO, CMPN #### [facility] (DEFAULT) [address] [address] MCV (RBC) [Entitic vol] 94.6 fL Normal 79.6-97.7 [facility] Comment on above: Performed By: #### H YO, CMPN #### [facility] (DEFAULT) [address] [address] Mean Cell Hgb 30.0 pg Normal 25.9-33.9 [facility] Comment on above: Performed By: #### H YO, CMPN #### [facility] (DEFAULT) [address] [address] Mean Cell Hgb Conc 31.7 g/dL Normal 31.4-35.9 [facility] Comment on above: Performed By: #### H YO, CMPN #### [facility] (DEFAULT) [address] [place] [address] Monocytes (Bld) [#/Vol] 0.57 10*3/uL Normal 0.22-0.87 [facility] Comment on above: Performed By: #### H YO, CMPN #### [facility] (DEFAULT) [address] [place] [address] Monocytes/100 WBC (Bld) 7.3 % Normal [facility] Comment on above: Performed By: #### H YO, CMPN #### [facility] (DEFAULT) [address] [place] [address] Nucleated RBC 0.0 /100 WBC Normal <=0.2 [facility] Comment on above: Performed By: #### H YO, CMPN #### [facility] (DEFAULT) [address] [place] [address] Platelet mean volume (Bld) [Entitic vol] 11.3 fL Normal 8.5-12.2 [facility] Comment on above: Performed By: #### H YO, CMPN #### [facility] (DEFAULT) [address] [place] [address] Platelets (Bld) [#/Vol] 223 10*3/uL Normal 150-393 [facility] Comment on above: Performed By: #### H YO, CMPN #### [facility] (DEFAULT) [address] [place] [address] RBC (Bld) [#/Vol] 5.23 10*6/uL High 3.91-5.04 [facility] Comment on above: Performed By: #### H YO, CMPN #### [facility] (DEFAULT) [address] [place] [address]059 RBC Distribution 13.0 % Normal 10.8-14.9 [facility] Comment on above: Performed By: #### H YO, CMPN #### [facility] (DEFAULT) [address] [place] [address] Segs + Bands Auto 58.9 % Normal [facility] Comment on above: Performed By: #### H YO, CMPN #### [facility] (DEFAULT) [address] [place] [address] Segs + Bands,Absolute Auto 4.61 K/uL Normal 1.64-7.28 [facility] Comment on above: Performed By: #### H YO, CMPN #### [facility] (DEFAULT) [address] [place] [address] WBC (Bld) [#/Vol] 7.83 10*3/uL Normal 3.99-11.19 [facility] Comment on above: Performed By: #### H YO, CMPN #### [facility] (DEFAULT) [address] [place] [address] COMPREHENSIVE METABOLIC PANE Ajith 03-06-2025 Albumin [Mass/Vol] 4.6 g/dL Normal 3.5-5.0 [facility] Comment on above: Performed By: #### H YO, CMPN #### [facility] (DEFAULT) [address] [place] [address] ALP [Catalytic activity/Vol] 75 U/L Normal 32-126 [facility] Comment on above: Performed By: #### H YO, CMPN #### [facility] (DEFAULT) [address] [place] [address] 33646 ALT [Catalytic activity/Vol] 12 U/L Normal 9-48 [facility] Comment on above: Performed By: #### H YO, CMPN #### [facility] (DEFAULT) [address] [place] [address] 18447 Anion gap [Moles/Vol] 10 mmol/L Normal 7-17 [facility] Comment on above: Performed By: #### H YO, CMPN #### [facility] (DEFAULT) [address] [place] [address] AST [Catalytic activity/Vol] 13 U/L Normal 10-39 [facility] Comment on above: Performed By: #### H YO, CMPN #### [facility] (DEFAULT) [address] [place] [address] Bilirubin [Mass/Vol] 0.3 mg/dL Normal <1.5 [facility] Comment on above: Performed By: #### H YO, CMPN #### [facility] (DEFAULT) [address] [place] [address] Calcium [Mass/Vol] 9.7 mg/dL Normal 8.6-10.5 [facility] Comment on above: Performed By: #### H YO, CMPN #### [facility] (DEFAULT) [address] [place] [address] 29031 Chloride [Moles/Vol] 103 mmol/L Normal 98-108 [facility] Comment on above: Performed By: #### H YO, CMPN #### [facility] (DEFAULT) [address] [place] [address] 44320 CO2 [Moles/Vol] 33 mmol/L High 21-31 [facility] Comment on above: Performed By: #### H YO, CMPN #### [facility] (DEFAULT) [address] [place] [address] 14939 Creatinine [Mass/Vol] 0.71 mg/dL Normal 0.50-1.20 [facility] Comment on above: Performed By: #### H YO, CMPN #### [facility] (DEFAULT) [address] [place] [address]167 eGFR, CKD-EPI, Female > Normal >=60 [facility] Comment on above: Result Comment: Repo rted eGFR is based on the CKD-EPI 2020 equation using creatinine, age, and sex. Performed By: #### H YO, CMPN #### [facility] (DEFAULT) [address] [place] [address] Glucose [Mass/Vol] 88 mg/dL Normal Nonfastin -179 mg/dL; Fastin-99 [facility] Comment on above: Performed By: #### H YO, CMPN #### [facility] (DEFAULT) [address] [place] [address] Osmolality [Osmolality] 295 mosm/kg Normal 278-305 [facility] Comment on above: Performed By: #### H YO, CMPN #### [facility] (DEFAULT) [address] [place] [address]75 Potassium [Moles/Vol] 4.8 mmol/L Normal 3.5-5.0 [facility] Comment on above: Performed By: #### H YO, CMPN #### [facility] (DEFAULT) [address] [place] [address] Protein [Mass/Vol] 7.5 g/dL Normal 6.4-8.3 [facility] Comment on above: Performed By: #### H YO, CMPN #### [facility] (DEFAULT) [address] [place] [address] Sodium [Moles/Vol] 141 mmol/L Normal 135-145 [facility] Comment on above: Performed By: #### H YO, CMPN #### [facility] (DEFAULT) [address] [place] [address] 11545 Urea nitrogen [Mass/Vol] 12 mg/dL Normal 7-25 [facility] Comment on above: Performed By: #### H YO, CMPN #### [facility] (DEFAULT) [address] [place] [address] Urea nitrogen/Creatinine [Mass ratio] 17 mg/mg Normal [facility] Comment on above: Performed By: #### H YO, CMPN #### [facility] (DEFAULT) [address] [place] [address] CT CHEST WITHOUT CONTRASTon 03-06-2025 CT CHEST WITHOUT CONTRAST EXAM: CT CHEST WITHOUT CONTRAST, 03/06/2025 08:12 AM COMPARISON: CT CHEST WITHOUT CONTRAST January 23, 2024 CLINICAL INDICATIONS: RLL lung nodule RELEVANT CLINICAL HISTORY: R91.1:Pulmonary nodule Super D protocol; please send the less than 1mm cuts to PACS;;Please send as CPT code 69988 to insurance if the normal CPT code is not approved; TECHNIQUE: CT images of the chest were obtained without intravenous contrast. FINDINGS: Lungs and Pleura: Centrilobular edema. Postsurgical changes from left upper lobe wedge resection. Stable biapical scarring. Previously measured medial right lower lobe nodule has decreased in size measuring 9 x 7 mm (series 2 image 282), previously 13 x 9 mm in 2023 and did not show hypermetabolic activity on recent PET imaging. Increased size of a more lateral right lower lobe nodule measuring 6 x 5 mm (series 2 image 285), previously 5 x 2 mm 2023 and it did show hypermetabolic activity on recent PET imaging. Right upper lobe spiculated nodule measuring 7 x 6 mm (series 2 image 116). This is new compared to January 2024 where there was only a small area of architectural distortion in this area with no nodule but is stable in size compared to recent PET imaging which showed associated hypermetabolic activity. Tracheobronchial tree: Scattered mucous without significant mucous plugging. Mediastinum/Shavonne: No mediastinal or hilar lymphadenopathy by size criteria. Remote granulomatous disease. Stable remaining thymic tissue. Thyroid and esophagus are unremarkable. Axilla and Supraclavicular Regions: No axillary or supraclavicular adenopathy. Cardiovascular: The cardiac chambers are within normal limits. All scattered coronary artery calcifications. There is ectasia of the left coronary artery measuring up to 5 mm. The pericardium is normal. The aorta and its arch branch vessels demonstrate atherosclerotic disease. The pulmonary arteries are also unremarkable. Upper Abdomen: The upper abdominal contents are unremarkable. Bones and Soft Tissue: No suspicious osseous lesion. IMPRESSION: 1. New and enlarging pulmonary nodules compared to 2023 which showed hypermetabolic activity on recent PET imaging suspicious for neoplasm. Medial right lower lobe nodule has decreased in size and did not show hypermetabolic activity on PET and is likely benign. 2. Moderate severe centrilobular emphysema. 3. No intrathoracic lymphadenopathy. 4. 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 Recommend cardiology consultation. I personally viewed and interpreted these images and I have reviewed and approved this report. Normal [facility] CT Chest WO contraston 03-06 IMPRESSION: 1. New and enlarging pulmonary nodules compared to 2023 which showed hypermetabolic activity on recent PET imaging suspicious for neoplasm. Medial right lower lobe nodule has decreased in size and did not show hypermetabolic activity on PET and is likely benign. 2. Moderate severe centrilobular emphysema. 3. No intrathoracic lymphadenopathy. 4. 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 Recommend cardiology consultation. I personally viewed and interpreted these images and I have reviewed and approved this report. OLOGY EXAM: CT CHEST WITHO UT CONTRAST, 03/06/2025 08:12 AM COMPARISON: CT CHEST WITHOUT CONTRAST January 23, 2024 CLINICAL INDICATIONS: RLL lung nodule RELEVANT CLINICAL HISTORY: R91.1:Pulmonary nodule Super D protocol; please send the less than 1mm cuts to PACS;;Please send as CPT code [id number] to insurance if the normal CPT code is not approved; TECHNIQUE: CT images of the chest were obtained without intravenous contrast. FINDINGS: Lungs and Pleura: Centrilobular edema. Postsurgical changes from left upper lobe wedge resection. Stable biapical scarring. Previously measured medial right lower lobe nodule has decreased in size measuring 9 x 7 mm (series 2 image 282), previously 13 x 9 mm in 2023 and did not show hypermetabolic activity on recent PET imaging. Increased size of a more lateral right lower lobe nodule measuring 6 x 5 mm (series 2 image 285), previously 5 x 2 mm 2023 and it did show hypermetabolic activity on recent PET imaging. Right upper lobe spiculated nodule measuring 7 x 6 mm (series 2 image 116). This is new compared to January 2024 where there was only a small area of architectural distortion in this area with no nodule but is stable in size compared to recent PET imaging which showed associated hypermetabolic activity. Tracheobronchial tree: Scattered mucous without significant mucous plugging. Mediastinum/Shavonne: No mediastinal or hilar lymphadenopathy by size criteria. Remote granulomatous disease. Stable remaining thymic tissue. Thyroid and esophagus are unremarkable. Axilla and Supraclavicular Regions: No axillary or supraclavicular adenopathy. Cardiovascular: The cardiac chambers are within normal limits. All scattered coronary artery calcifications. There is ectasia of the left coronary artery measuring up to 5 mm. The pericardium is normal. The aorta and its arch branch vessels demonstrate atherosclerotic disease. The pulmonary arteries are also unremarkable. Upper Abdomen: The upper abdominal contents are unremarkable. Bones and Soft Tissue: No suspicious osseous lesion. RADIOLOGY Ced Gamez MD - 03/06/2025 EXAM: CT CHEST WITHOUT CONTRAST, 03/06/2025 08:12 AM COMPARISON: CT CHEST WITHOUT CONTRAST January 23, 2024 CLINICAL INDICATIONS: RLL lung nodule RELEVANT CLINICAL HISTORY: R91.1:Pulmonary nodule Super D protocol; please send the less than 1mm cuts to PACS;;Please send as CPT code [id number] to insurance if the normal CPT code is not approved; TECHNIQUE: CT images of the chest were obtained without intravenous contrast. FINDINGS: Lungs and Pleura: Centrilobular edema. Postsurgical changes from left upper lobe wedge resection. Stable biapical scarring. Previously measured medial right lower lobe nodule has decreased in size measuring 9 x 7 mm (series 2 image 282), previously 13 x 9 mm in 2023 and did not show hypermetabolic activity on recent PET imaging. Increased size of a more lateral right lower lobe nodule measuring 6 x 5 mm (series 2 image 285), previously 5 x 2 mm 2023 and it did show hypermetabolic activity on recent PET imaging. Right upper lobe spiculated nodule measuring 7 x 6 mm (series 2 image 116). This is new compared to January 2024 where there was only a small area of architectural distortion in this area with no nodule but is stable in size compared to recent PET imaging which showed associated hypermetabolic activity. Tracheobronchial tree: Scattered mucous without significant mucous plugging. Mediastinum/Shavonne: No mediastinal or hilar lymphadenopathy by size criteria. Remote granulomatous disease. Stable remaining thymic tissue. Thyroid and esophagus are unremarkable. Axilla and Supraclavicular Regions: No axillary or supraclavicular adenopathy. Cardiovascular: The cardiac chambers are within normal limits. All scattered coronary artery calcifications. There is ectasia of the left coronary artery measuring up to 5 mm. The pericardium is normal. The aorta and its arch branch vessels demonstrate atherosclerotic disease. The pulmonary arteries are also unremarkable. Upper Abdomen: The upper abdominal contents are unremarkable. Bones and Soft Tissue: No suspicious osseous lesion. IMPRESSION IMPRESSION: 1. New and enlarging pulmonary nodules compared to 2023 which showed hypermetabolic activity on recent PET imaging suspicious for neoplasm. Medial right lower lobe nodule has decreased in size and did not show hypermetabolic activity on PET and is likely benign. 2. Moderate severe centrilobular emphysema. 3. No intrathoracic lymphadenopathy. 4. 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 Recommend cardiology consultation. I personally viewed and interpreted these images and I have reviewed and approved this report. [facility] Radiology Study observation (narrative) [facility] CT Chest WO contrastOrdered By: Ced Gamez on 03-06-2025 [facility] Work Phone: LIPID PANEL W CALCULATED LDL on 03-06-2025 Calculated LDL Cholesterol 164 mg/dL High 0-99 [facility] Comment on above: Result Comment: [<10 0 mg/dL: Optimal] [100-129 mg/dL: Near Optimal] [130-159 mg/dL: Borderline High] [160-189 mg/dL: High] [>189 mg/dL: Very High] Performed By: #### H YO, CMPN #### [facility] (DEFAULT) [address] [place] [address] Cholesterol [Mass/Vol] 245 mg/dL High <200 [facility] Comment on above: Result Comment: [<20 0 mg/dL: Desirable] [200-239 mg/dL: Borderline High] [>239 mg/dL: High] Performed By: #### H YO, CMPN #### [facility] (DEFAULT) [address] [address] Cholesterol in HDL [Mass/Vol] 60 mg/dL Normal >=40 [facility] Comment on above: Result Comment: [<40 mg/dL: Low (High Risk)] [>59 mg/dL: High (Low Risk)] Performed By: #### H YO, CMPN #### [facility] (DEFAULT) [address] [address] Non HDL Cholesterol 185 mg/dL High <130 [facility] Comment on above: Performed By: #### H YO, CMPN #### [facility] (DEFAULT) [address] [address] Total Cholesterol/HDL Ratio 4.1 Normal <4.5 [facility] Comment on above: Performed By: #### H YO, CMPN #### [facility] (DEFAULT) [address] [address] Triglyceride [Mass/Vol] 104 mg/dL Normal <150 [facility] Comment on above: Result Comment: [<15 0 mg/dL: Desirable] [150-199 mg/dL: Borderline] [200-499 mg/dL: High] [>500 mg/dL: Very High] Performed By: #### H YO, CMPN #### [facility] (DEFAULT) [address] [place] [address] T4 FREEon 03-06-2025 Free T4 [Mass/Vol] 1.22 ng/dL Normal 0.89-1.76 [facility] Comment on above: Performed By: #### T SH, FT4 #### [facility] (DEFAULT) [address] [address] TSHon 03-06-2025 TSH 1.253 uIU/mL Normal 0.550-4.780 [facility] Comment on above: Performed By: #### T SH, FT4 #### [facility] (DEFAULT) [address] [place] [address] VITAMIN D (25-HYDROXY,TOTAL) on 03-06-2025 25-OH Vitamin D Total 59.7 ng/mL Normal 30.0-100.0 [facility] Comment on above: Order Comment: Vitam in D values have been shown to be falsely decreased in lipemic samples and should be interpreted with caution. Result Comment: <10 Deficiency 10-29 Insufficiency 30-100 Optimal Level >100 Possible Toxicity Performed By: #### H YO, CMPN #### [facility] (DEFAULT) [address] [place] [address] GLUCOSE POCon 02-11-2025 Glucose [Mass/Vol] 94 mg/dL 70 - 179 mg/dL [facility] POC Sample Type CAPBL [facility] Test performed at address of the patient encounter. [facility] NUC PET HEAD TO THIGHon 01-15 NUC PET HEAD TO THIGH EXAM: NUC PET HEAD TO THIGH, 02/11/2025 09:15 AM CLINICAL INDICATIONS: Increasing RLL nodule, please evaluate for any potential spread outside of this area, COMPARISON: NUC PET OTHER January 17, 2022 CT DOSE: DLP: 467.3 mGy x cm kVp: 120 TECHNIQUE: The patient's fasting blood glucose was 94 mg/dl. Approximately 67 minutes following the intravenous injection of F-18 FDG Dose: 10.686 millicurie, the patient was positioned on the [employer] PET/CT, [facility] scanner. A low-resolution non-contrast CT was obtained from the top of the head through the mid-femurs for use in attenuation correction and anatomic correlation. PET emission scans of this anatomic region were acquired shortly thereafter. Axial, sagittal, coronal and maximal intensity projection reconstruction images were presented for interpretation. FINDINGS: Head/Neck: Physiologic FDG uptake is noted in the salivary glands and tonsillar tissue. There is no hypermetabolic cervical or supraclavicular lymphadenopathy. Normal, intense physiologic uptake is noted in the cerebral cortex castillo matter and subcortical nuclei without gross hypermetabolic abnormality. Persistent diffuse FDG uptake in the thyroid gland, likely related to thyroiditis. Chest: Status post left upper lobe wedge resection. Moderately FDG avid right upper lobe nodule is new from prior CT chest and new from prior PET/CT measuring 6 x 7 mm SUV max 4.2 (series 201 image 160). Additional moderately FDG avid right lower lobe nodule is also new measuring 3 x 4 mm SUV max 3.5 (series 201 image 218). Medial right lower lobe lymph node conglomerate does not demonstrate significant FDG uptake (series 201 image 216). There is no hypermetabolic axillary, mediastinal, or hilar lymphadenopathy. Physiologic FDG uptake is seen in the myocardium. Abdomen/Pelvis: Physiologic FDG uptake is seen throughout the liver, spleen and bowel. Physiologic FDG excretion is seen in the kidneys, ureters, and bladder. There are no hypermetabolic lesions in the adrenal glands. There is no hypermetabolic inguinal, retroperitoneal, paraaortic or portocaval lymphadenopathy. Musculoskeletal: No focal hypermetabolic osseous lesions are identified. Diffuse FDG uptake in multiple left posterior ribs including the seventh, eighth and ninth ribs, likely related to inflammation or acute fracture. IMPRESSION: There are 2 new moderately metabolic right lung nodules, suspicious for recurrence. Thank you for allowing [facility] at [facility] to assist in the care of this patient. Normal [facility] PT Skull base to mid-thighon 02-11-2025 IMPRESSION: There are 2 new moderately metabolic right lung nodules, suspicious for recurrence. Thank you for allowing [facility] at [facility] to assist in the care of this patient. OLOGY EXAM: NUC PET HEAD T O THIGH, 02/11/2025 09:15 AM CLINICAL INDICATIONS: Increasing RLL nodule, please evaluate for any potential spread outside of this area, COMPARISON: NUC PET OTHER January 17, 2022 CT DOSE: DLP: 467.3 mGy x cm kVp: 120 TECHNIQUE: The patient's fasting blood glucose was 94 mg/dl. Approximately 67 minutes following the intravenous injection of F-18 FDG Dose: 10.686 millicurie, the patient was positioned on the [employer] PET/CT, [facility] scanner. A low-resolution non-contrast CT was obtained from the top of the head through the mid-femurs for use in attenuation correction and anatomic correlation. PET emission scans of this anatomic region were acquired shortly thereafter. Axial, sagittal, coronal and maximal intensity projection reconstruction images were presented for interpretation. FINDINGS: Head/Neck: Physiologic FDG uptake is noted in the salivary glands and tonsillar tissue. There is no hypermetabolic cervical or supraclavicular lymphadenopathy. Normal, intense physiologic uptake is noted in the cerebral cortex castillo matter and subcortical nuclei without gross hypermetabolic abnormality. Persistent diffuse FDG uptake in the thyroid gland, likely related to thyroiditis. Chest: Status post left upper lobe wedge resection. Moderately FDG avid right upper lobe nodule is new from prior CT chest and new from prior PET/CT measuring 6 x 7 mm SUV max 4.2 (series 201 image 160). Additional moderately FDG avid right lower lobe nodule is also new measuring 3 x 4 mm SUV max 3.5 (series 201 image 218). Medial right lower lobe lymph node conglomerate does not demonstrate significant FDG uptake (series 201 image 216). There is no hypermetabolic axillary, mediastinal, or hilar lymphadenopathy. Physiologic FDG uptake is seen in the myocardium. Abdomen/Pelvis: Physiologic FDG uptake is seen throughout the liver, spleen and bowel. Physiologic FDG excretion is seen in the kidneys, ureters, and bladder. There are no hypermetabolic lesions in the adrenal glands. There is no hypermetabolic inguinal, retroperitoneal, paraaortic or portocaval lymphadenopathy. Musculoskeletal: No focal hypermetabolic osseous lesions are identified. Diffuse FDG uptake in multiple left posterior ribs including the seventh, eighth and ninth ribs, likely related to inflammation or acute fracture. RADIOLOGY Nanette-James Hernandez MD - 02/11/2025 EXAM: NUC PET HEAD TO THIGH, 02/11/2025 09:15 AM CLINICAL INDICATIONS: Increasing RLL nodule, please evaluate for any potential spread outside of this area, COMPARISON: NUC PET OTHER January 17, 2022 CT DOSE: DLP: 467.3 mGy x cm kVp: 120 TECHNIQUE: The patient's fasting blood glucose was 94 mg/dl. Approximately 67 minutes following the intravenous injection of F-18 FDG Dose: 10.686 millicurie, the patient was positioned on the [employer] PET/CT, [facility] scanner. A low-resolution non-contrast CT was obtained from the top of the head through the mid-femurs for use in attenuation correction and anatomic correlation. PET emission scans of this anatomic region were acquired shortly thereafter. Axial, sagittal, coronal and maximal intensity projection reconstruction images were presented for interpretation. FINDINGS: Head/Neck: Physiologic FDG uptake is noted in the salivary glands and tonsillar tissue. There is no hypermetabolic cervical or supraclavicular lymphadenopathy. Normal, intense physiologic uptake is noted in the cerebral cortex castillo matter and subcortical nuclei without gross hypermetabolic abnormality. Persistent diffuse FDG uptake in the thyroid gland, likely related to thyroiditis. Chest: Status post left upper lobe wedge resection. Moderately FDG avid right upper lobe nodule is new from prior CT chest and new from prior PET/CT measuring 6 x 7 mm SUV max 4.2 (series 201 image 160). Additional moderately FDG avid right lower lobe nodule is also new measuring 3 x 4 mm SUV max 3.5 (series 201 image 218). Medial right lower lobe lymph node conglomerate does not demonstrate significant FDG uptake (series 201 image 216). There is no hypermetabolic axillary, mediastinal, or hilar lymphadenopathy. Physiologic FDG uptake is seen in the myocardium. Abdomen/Pelvis: Physiologic FDG uptake is seen throughout the liver, spleen and bowel. Physiologic FDG excretion is seen in the kidneys, ureters, and bladder. There are no hypermetabolic lesions in the adrenal glands. There is no hypermetabolic inguinal, retroperitoneal, paraaortic or portocaval lymphadenopathy. Musculoskeletal: No focal hypermetabolic osseous lesions are identified. Diffuse FDG uptake in multiple left posterior ribs including the seventh, eighth and ninth ribs, likely related to inflammation or acute fracture. IMPRESSION IMPRESSION: There are 2 new moderately metabolic right lung nodules, suspicious for recurrence. Thank you for allowing [facility] On[facility] Imaging at [facility] to assist in the care of this patient. [facility] Radiology Study observation (narrative) [facility] PT Skull base to mid-thighOr dered By: Merrick Devine on 02-11-2025 [facility] Work Phone: Basic metabolic 2000 panelon 03-15-2024 Anion gap [Moles/Vol] 6.0 mmol/L Normal <=15.0 [facility] Comment on above: Performed By: #### 2 4321-2 #### [facility] [address] [place] [address] Deck Supervisor - Petra Cheney CLIA [id number] Calcium [Mass/Vol] 9.2 mg/dL Normal 8.5-10.1 [facility] Comment on above: Performed By: #### 2 4321-2 #### [facility] [address] [place] [address] Deck Supervisor - Petra RANKINIA [id number] Chloride [Moles/Vol] 108 mmol/L High 98-107 [facility] Comment on above: Performed By: #### 2 4321-2 #### [facility] [address] [place] [address] Deck Supervisor - Petra Cheney CLIA [id number] CO2 [Moles/Vol] 29 mmol/L Normal 21-32 [facility] Comment on above: Performed By: #### 2 4321-2 #### [facility] [address] [place] [address] Deck Supervisor - Petra RANKINIA [id number] Creatinine [Mass/Vol] 0.93 mg/dL Normal 0.51-0.95 [facility] Comment on above: Performed By: #### 2 4321-2 #### [facility] [address] [place] [address] Deck Supervisor - Petra RANKINIA [id number] GFR/1.73 sq M.predicted MDRD (S/P/Bld) [Vol rate/Area] mL/min/{1.73_m2} Normal >=59 [facility] Comment on above: Performed By: #### 2 4321-2 #### [facility] [address] [place] [address] Deck Supervisor - Petra RANKINIA [id number] Glucose [Mass/Vol] 144 mg/dL High 74-106 [facility] Comment on above: Performed By: #### 2 4321-2 #### [facility] [address] [facility] [place] [address] Deck Supervisor [facility] [id number] HGFR GLOMERULAR FILTRATIO N RATE INTERPRETATION~The eGFR is calculated using the MDRD equation.~This equation has been validated in patients with chronic kidney disease;~however, it underestimates the GFR in healthy patients with GFR's over 60 mL/min.~The equation is not valid in children under the age of 18.~NOTE: Criteria for Chronic Kidney Disease:~ ~1. Kidney damage for at least three months, as defined~by structural or functional abnormalities of the kidney,~with or without decreased glomerular filtration rate, manifested by either:~* Pathological abnormalities or~* Markers of Kidney damage, including abnormalities in~the composition of the blood or urine or abnormalities in imaging tests.~ ~2. GFR <60 mL/min/1.73 m squared for at least three months, with or without kidney damage.~ Normal [facility] Comment on above: Performed By: #### 2 4321-2 #### [facility] [address] [facility] [place] [address] Deck Supervisor - Petra BERGER [id number] Potassium [Moles/Vol] 3.5 mmol/L Normal 3.5-5.1 [facility] Comment on above: Performed By: #### 2 4321-2 #### [facility] [address] [facility] [address] [place] [address] Deck Supervisor [facility] Hospital[facility] [id number] Sodium [Moles/Vol] 143 mmol/L Normal 136-145 [facility] Comment on above: Performed By: #### 2 4321-2 #### [facility] [address] [facility] [address] [place] [address] Deck Supervisor - [facility] HospitalIA [id number] Urea nitrogen [Mass/Vol] 11 mg/dL Normal 7-17 [facility] Comment on above: Performed By: #### 2 4321-2 #### [place] [id number] [facility]. [place] [address] Deck Supervisor - Petra BERGER [id number] CBC panel Auto (Bld)on 03-15 Erythrocyte distribution width (RBC) [Entitic vol] 42.6 fL Normal 36.4-46.3 [facility] Comment on above: Performed By: #### 5 8410-2 #### [address] [place] [address] Deck Supervisor - Petra BERGER [id number] Hematocrit (Bld) [Volume fraction] 42.8 % Normal 37.0-47.0 [facility] Comment on above: Performed By: #### 5 8410-2 #### [address] [place] [address] Deck Supervisor - Petra BERGER [id number] Hemoglobin (Bld) [Mass/Vol] 14.8 g/dL Normal 12.0-16.0 [facility] Comment on above: Performed By: #### 5 8410-2 #### [address] [place] [address] Deck Supervisor - Petra BERGER [id number] MCH (RBC) [Entitic mass] 30.5 pg Normal 27.0-31.0 [facility] Comment on above: Performed By: #### 5 8410-2 #### [address] [place] [address] Deck Supervisor - Petra BERGER [id number] MCHC (RBC) [Mass/Vol] 34.6 g/dL Normal 32.0-36.0 [facility] Comment on above: Performed By: #### 5 8410-2 #### [address] [place] [address] Deck Supervisor - Petra BERGER [id number] MCV (RBC) [Entitic vol] 88.2 fL Normal 80.0-100.0 [facility] Comment on above: Performed By: #### 5 8410-2 #### [address] Director - Petra RANKINIA [id number] Platelet mean volume (Bld) [Entitic vol] 9.6 fL Normal 9.0-13.0 [facility] Comment on above: Performed By: #### 5 8410-2 #### [facility] [address] [place] [address]. [place] [address] Deck Supervisor - Petra Cheney CLIA [id number] Platelets (Bld) [#/Vol] 238 10*3/uL Normal 130-400 [facility] Comment on above: Performed By: #### 5 8410-2 #### [facility] [address] [facility] - Petra RANKINIA [id number] RBC (Bld) [#/Vol] 4.85 10*6/uL Normal 4.00-6.30 [facility] Comment on above: Performed By: #### 5 8410-2 #### [address] - Petra Shravan RANKINIA [id number] WBC (Bld) [#/Vol] 8.67 10*3/uL Normal 4.80-10.80 [facility] Comment on above: Performed By: #### 5 8410-2 #### [address] - Petra Lopezrell CHUCHOIA [id number] CT PELVIS WITHOUT CONTRASTon 03-15-2024 CT PELVIS WITHOUT CONTRAST EXAMINATION: CT PELVIS WITHOUT CONTRAST HISTORY: Left inguinal pain COMPARISON: 07/21/2011 TECHNIQUE: Multiplanar CT images of the pelvis without contrast. Dose reduction techniques were achieved by using automated exposure control and/or adjustment of mA and/or kV according to patient size and/or use of iterative reconstruction technique. FINDINGS: There is a subtle acute nondisplaced fracture of the left pubic bone near the pubic symphysis as seen on series 2 image 89, series 5 images 29-30, series 6 images 74-76. Otherwise the pelvis appears intact in this osteopenic patient. Questionable bony irregularity of the upper sacral ala without significant presacral hematoma, follow-up MRI would better evaluate for subtle nondisplaced sacral fracture in this osteopenic patient. Mild degenerative change bilateral hips and lower lumbar spine. No acute intrapelvic abnormality. No left inguinal hernia. Prior hysterectomy. Suggestion of constipation. No evidence of bowel obstruction. IMPRESSION: There is a subtle acute nondisplaced fracture of the left pubic bone near the pubic symphysis as seen on series 2 image 89, series 5 images 29-30, series 6 images 74-76. Questionable bony irregularity of the upper sacral ala without significant presacral hematoma, follow-up MRI would better evaluate for subtle nondisplaced sacral fracture in this osteopenic patient. Normal [facility] PT Coag (PPP) [Time]on 03-15 HPTINR INR REFERENCE RANGE INTERPRETATION Patients on Coumadin 2.0 - 3.0 Patients with mechanical heart valves 2.5 - 3.5 Normal [facility] Comment on above: Performed By: #### 1 4979-9, 5902-2 #### [facility] [address] [place] [address] Deck Supervisor - [facility] BERGER [id number] INR Coag (PPP) [Relative time] 1.0 {INR} Normal 0.8-1.1 [facility] Comment on above: Performed By: #### 1 4979-9, 5901-2 #### [facility] [address] [place] [address] Deck Supervisor - Petra Cheneymarisa BERGER [id number] PT with INRon 03-15-2024 PT Coag (PPP) [Time] 10.8 s Normal 9.3-11.5 [facility] Comment on above: Performed By: #### 1 4979-9, 5901-2 #### [facility] [address] [place] [address] Deck Supervisor - Petra BERGER [id number] PTTon 03-15-2024 aPTT Coag (PPP) [Time] 26.8 s Normal 23.5-31.3 [facility] Comment on above: Performed By: #### 1 4979-9, 590-2 #### [facility] [address] [place] [id number] Deck Supervisor - Petra Cheney AB [id number] HIP LT 2 OR 3 VIEWSon 2023 HIP LT 2 OR 3 VIEWS EXAM: RIBS LEFT UNILATERAL WITH CXR, HIP LT 2 OR 3 VIEWS HISTORY: Rib pain COMPARISON: Chest and left rib series dated 04/10/2023. TECHNIQUE: One view of the chest with frontal and oblique views of the left ribs were obtained. 2 views of the left hip were obtained. FINDINGS: Chest and left ribs: The cardiac silhouette is normal in size. Aortic atherosclerotic disease is seen. Postsurgical changes are seen in the upper left lung. There are a few calcified granulomas in the lungs. There are emphysematous changes. There is no significant pneumothorax or pleural effusion. No acute osseous abnormality is seen. No definite displaced rib fracture is seen. Left hip: No acute fracture or dislocation is seen. The left femoral head is well-seated in the acetabulum. There are mild degenerative changes of the left sacroiliac joint, the left hip joint, and the pubic symphysis. IMPRESSION: 1. Emphysematous changes with no acute cardiopulmonary abnormality. 2. No definite displaced rib fracture is seen. 3. No acute fracture or dislocation of the left hip is seen. If there is concern for an occult injury, cross-sectional imaging is recommended. Normal [facility] RIBS LEFT UNILATERAL WITH CX Nic 03-02-2024 RIBS LEFT UNILATERAL WITH CXR EXAM: RIBS LEFT UNILATERAL WITH CXR, HIP LT 2 OR 3 VIEWS HISTORY: Rib pain COMPARISON: Chest and left rib series dated 04/10/2023. TECHNIQUE: One view of the chest with frontal and oblique views of the left ribs were obtained. 2 views of the left hip were obtained. FINDINGS: Chest and left ribs: The cardiac silhouette is normal in size. Aortic atherosclerotic disease is seen. Postsurgical changes are seen in the upper left lung. There are a few calcified granulomas in the lungs. There are emphysematous changes. There is no significant pneumothorax or pleural effusion. No acute osseous abnormality is seen. No definite displaced rib fracture is seen. Left hip: No acute fracture or dislocation is seen. The left femoral head is well-seated in the acetabulum. There are mild degenerative changes of the left sacroiliac joint, the left hip joint, and the pubic symphysis. IMPRESSION: 1. Emphysematous changes with no acute cardiopulmonary abnormality. 2. No definite displaced rib fracture is seen. 3. No acute fracture or dislocation of the left hip is seen. If there is concern for an occult injury, cross-sectional imaging is recommended. Normal [facility] CT Chest WO contraston 01-22 IMPRESSION: 1. Mild interval increase in size of right lower lobe nodule, concerning for slow growing primary malignancy in a smoker though to demonstrate hypermetabolic activity on prior PET/CT. I suggest further evaluation with biopsy and repeating PET/CT. 2. New indeterminate small nodule in the right lower lobe, cannot exclude metastatic disease in the proper clinical setting. I suggest [address] follow-up. 3. Moderate to severe centrilobular emphysema. 4. No lymphadenopathy within the chest. I personally viewed and interpreted these images and I have reviewed and approved this report. OLOGY EXAM: CT CHEST WITHO UT CONTRAST, 01/23/2024 13:56 PM COMPARISON: CT chests dated March 06, 2023 and PET/CT dated 01/17/2022 CLINICAL INDICATIONS: lung nodule RELEVANT CLINICAL HISTORY: R91.1:Nodule of right lung TECHNIQUE: CT images of the chest were obtained without intravenous contrast. FINDINGS: Lungs and Pleura: Status post left upper lobe wedge resection. Moderate to severe centrilobular emphysema with upper lobe predominance. Stable biapical scarring. Mild increase in size of medial right lower lobe nodule measuring 1.3 x 0.9 cm (series 3 image 196), previously 1.1 x 0.6 cm. This nodule did not show FDG activity on the prior PET/CT study of January 17, 2022. Additional sub-5 mm right lower lobe nodule is grossly unchanged (series 3 image 197). New sub-5 mm nodule in the right lower lobe (series 3 image 150) up to 4 mm. Tracheobronchial tree: Mild bilateral upper lobe traction bronchiectasis. Mediastinum/Shavonne: Calcified mediastinal and hilar lymph nodes. Stable anterior mediastinal prominent residual thymic tissue. No suspicious mediastinal or hilar lymphadenopathy. Axilla and Supraclavicular Regions: No axillary or supraclavicular adenopathy. Cardiovascular: The cardiac chambers are within normal limits. The pericardium is normal. The aorta and its arch branch vessels are unremarkable. The pulmonary arteries are also unremarkable. Upper Abdomen: The upper abdominal contents are unremarkable. Bones and Soft Tissue: Stable superior endplate deformity of T10 vertebral body. No suspicious osseous lesion. RADIOLOGY Eileen Shrestha MD - 01/23/2024 EXAM: CT CHEST WITHOUT CONTRAST, 01/23/2024 13:56 PM COMPARISON: CT chests dated March 06, 2023 and PET/CT dated 01/17/2022 CLINICAL INDICATIONS: lung nodule RELEVANT CLINICAL HISTORY: R91.1:Nodule of right lung TECHNIQUE: CT images of the chest were obtained without intravenous contrast. FINDINGS: Lungs and Pleura: Status post left upper lobe wedge resection. Moderate to severe centrilobular emphysema with upper lobe predominance. Stable biapical scarring. Mild increase in size of medial right lower lobe nodule measuring 1.3 x 0.9 cm (series 3 image 196), previously 1.1 x 0.6 cm. This nodule did not show FDG activity on the prior PET/CT study of January 17, 2022. Additional sub-5 mm right lower lobe nodule is grossly unchanged (series 3 image 197). New sub-5 mm nodule in the right lower lobe (series 3 image 150) up to 4 mm. Tracheobronchial tree: Mild bilateral upper lobe traction bronchiectasis. Mediastinum/Shavonne: Calcified mediastinal and hilar lymph nodes. Stable anterior mediastinal prominent residual thymic tissue. No suspicious mediastinal or hilar lymphadenopathy. Axilla and Supraclavicular Regions: No axillary or supraclavicular adenopathy. Cardiovascular: The cardiac chambers are within normal limits. The pericardium is normal. The aorta and its arch branch vessels are unremarkable. The pulmonary arteries are also unremarkable. Upper Abdomen: The upper abdominal contents are unremarkable. Bones and Soft Tissue: Stable superior endplate deformity of T10 vertebral body. No suspicious osseous lesion. IMPRESSION IMPRESSION: 1. Mild interval increase in size of right lower lobe nodule, concerning for slow growing primary malignancy in a smoker though to demonstrate hypermetabolic activity on prior PET/CT. I suggest further evaluation with biopsy and repeating PET/CT. 2. New indeterminate small nodule in the right lower lobe, cannot exclude metastatic disease in the proper clinical setting. I suggest [address] follow-up. 3. Moderate to severe centrilobular emphysema. 4. No lymphadenopathy within the chest. I personally viewed and interpreted these images and I have reviewed and approved this report. [facility] Radiology Study observation (narrative) [facility] CT Chest WO contrastOrdered By: Eileen Shrestha on 01-23-2024 [facility] Work Phone: No Panel Informationon 01-07 IMPRESSION: Soft tissue swelling. No acute osseous abnormality. OLOGY EXAM: XR HAND LEFT 3 + VIEWS, XR THUMB LEFT 2+ VIEWS, 01/08/2024 14:19 PM (accession [id number]), 01/08/2024 14:20 PM (accession [id number]) COMPARISON: Left hand radiographs November 29, 2020. 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 2 images obtained of the left thumb. Soft Tissue: Soft tissue swelling diffusely involving the thumb, most pronounced around the MCP joint. There is also swelling of the second and third digits, most notably along the lateral aspects of the PIP joints. No soft tissue gas. No foreign body. Bone: Previous amputation of the fifth digit at the base of the metacarpal, stable in appearance. Deformity of the distal radius related to a healed fracture also stable. Suspected healed fracture of the distal ulna as well. No acute fracture. No periosteal reaction or osteolysis. Joint: No evidence of dislocation. The carpal joints appear anatomically aligned. RADIOLOGY Iggy Montes MD - 01/08/2024 EXAM: XR HAND LEFT 3+ VIEWS, XR THUMB LEFT 2+ VIEWS, 01/08/2024 14:19 PM (accession [id number]), 01/08/2024 14:20 PM (accession [id number]) COMPARISON: Left hand radiographs November 29, 2020. 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 2 images obtained of the left thumb. Soft Tissue: Soft tissue swelling diffusely involving the thumb, most pronounced around the MCP joint. There is also swelling of the second and third digits, most notably along the lateral aspects of the PIP joints. No soft tissue gas. No foreign body. Bone: Previous amputation of the fifth digit at the base of the metacarpal, stable in appearance. Deformity of the distal radius related to a healed fracture also stable. Suspected healed fracture of the distal ulna as well. No acute fracture. No periosteal reaction or osteolysis. Joint: No evidence of dislocation. The carpal joints appear anatomically aligned. IMPRESSION IMPRESSION: Soft tissue swelling. No acute osseous abnormality. [facility] No Panel InformationOrdered By: Iggy Montes on 01-08-2024 [facility] Work Phone: TOTAL HEMOGLOBINon Hemoglobin (Bld) [Mass/Vol] 16.3 g/dL High 11.4 - 15.2 g/dL [facility] Interpretation and review of laboratory results Abnormal [facility] XR Hand - left 3 [facility] Radiology Study observation (narrative) [facility] XR Thumb - left [facility] 12-15 Radiology Study observation (narrative) [facility] VITAMIN D (25-HYDROXY,TOTAL) on 10-30-2023 Interpretation and review of laboratory results Normal [facility] Vitamin D+Metabolites [Mass/Vol] 62.4 ng/mL 30.0 - 100.0 ng/mL [facility] Comment on above: <10 Deficiency 10-29 Insufficiency 30-100 Optimal Level >100 Possible Toxicity Vitamin D values hav e been shown to be falsely decreased in lipemic samples and should be interpreted with caution. [facility] CBC AND ELECTRONIC DIFFon Basophils (Bld) [#/Vol] K/uL 0.00 - 0.15 K/uL [facility] Basophils/100 WBC (Bld) 0.2 % [facility] Differential cell count method Nom (Bld) Electronic Differential [facility] Eosinophils (Bld) [#/Vol] 0.12 10*3/uL 0.00 - 0.42 K/uL [facility] Eosinophils/100 WBC (Bld) 1.5 % [facility] Erythrocyte distribution width (RBC) [Ratio] 12.9 % 10.8 - 14.9 % [facility] Hematocrit (Bld) [Volume fraction] 47.1 % High 34.9 - 44.3 % [facility] Hemoglobin (Bld) [Mass/Vol] 15.1 g/dL 11.4 - 15.2 g/dL [facility] Immature granulocytes (Bld) [#/Vol] K/uL NINF - 0.08 K/uL [facility] Immature granulocytes/100 WBC (Bld) 0.4 % [facility] Interpretation and review of laboratory results Abnormal [facility] Lymphocytes (Bld) [#/Vol] 2.55 10*3/uL 1.16 - 3.51 K/uL [facility] Lymphocytes/100 WBC (Bld) 31.2 % [facility] MCH (RBC) [Entitic mass] 29.8 pg 25.9 - 33.[address] [facility] MCHC (RBC) [Mass/Vol] 32.1 g/dL 31.4 - 35.9 g/dL [facility] MCV (RBC) [Entitic vol] 93.1 fL 79.6 - 97.[address] [facility] Monocytes (Bld) [#/Vol] 0.61 10*3/uL 0.22 - 0.87 K/uL [facility] Monocytes/100 WBC (Bld) 7.5 % [facility] Neutrophils (Bld) [#/Vol] 4.84 10*3/uL 1.64 - 7.28 K/uL [facility] Nucleated RBC/100 WBC (Bld) [Ratio] 0.0 % [facility] Platelet mean volume (Bld) [Entitic vol] 10.7 fL 8.5 - 12.[address] [facility] Platelets (Bld) [#/Vol] 228 10*3/uL 150 - 393 K/uL [facility] RBC (Bld) [#/Vol] 5.06 10*6/uL High [facility] Segmented neutrophils/100 WBC (Bld) 59.2 % [facility] WBC (Bld) [#/Vol] 8.17 10*3/uL 3.99 - 11. 19 K/uL [facility] COMPREHENSIVE METABOLIC PANE Ajith 10-29-2023 Albumin [Mass/Vol] 4.5 g/dL 3.5 - 5.0 g/dL [facility] ALP [Catalytic activity/Vol] 76 U/L 32 - 126 U/L [facility] ALT [Catalytic activity/Vol] 26 U/L 9 - 48 U/L [facility] Anion gap [Moles/Vol] 10 mmol/L 7 - 17 mmol/L [facility] AST [Catalytic activity/Vol] 27 U/L 10 - 39 U/L [facility] Bilirubin [Mass/Vol] 0.3 mg/dL NINF - 1.5 mg/dL [facility] Calcium [Mass/Vol] 10.6 mg/dL High 8.6 - 10. 5 mg/dL [facility] Chloride [Moles/Vol] 104 mmol/L 98 - 10 8 mmol/L [facility] CO2 [Moles/Vol] 29 mmol/L 21 - 31 mmol/L [facility] Creatinine [Mass/Vol] 0.84 mg/dL 0.50 - 1.20 mg/dL [facility] eGFR, CKD-EPI, Female 78 - PINF [facility] Comment on above: Reported eGFR is bas ed on the CKD-EPI 2020 equation using creatinine, age, and sex. Glucose [Mass/Vol] 148 mg/dL High 70 - 99 mg/dL [facility] Interpretation and review of laboratory results Abnormal [facility] Osmolality Calc [Osmolality] 294 [facility] Potassium [Moles/Vol] 5.0 mmol/L 3.5 - 5.0 mmol/L [facility] Protein [Mass/Vol] 7.0 g/dL 6.4 - 8.3 g/dL [facility] Sodium [Moles/Vol] 138 mmol/L 135 - 145 mmol/L [facility] Urea nitrogen [Mass/Vol] 14 mg/dL 7 - 25 mg/dL [facility] Urea nitrogen/Creatinine [Mass ratio] 17 mg/mg [facility] LIPID PANEL W CALCULATED LDL on 10-29-2023 Cholesterol [Mass/Vol] 162 mg/dL NINF - 200 mg/dL [facility] Comment on above: [<200 mg/dL: Desirab le] [200-239 mg/dL: Borderline High] [>239 mg/dL: High] Cholesterol in HDL [Mass/Vol] 67 mg/dL 40 - PINF mg/dL [facility] Comment on above: [<40 mg/dL: Low (Hig h Risk)] [>59 mg/dL: High (Low Risk)] Cholesterol in LDL [Mass/Vol] 87 mg/dL 0 - 99 mg/dL [facility] Comment on above: [<100 mg/dL: Optimal ] [100-129 mg/dL: Near Optimal] [130-159 mg/dL: Borderline High] [160-189 mg/dL: High] [>189 mg/dL: Very High] Cholesterol non HDL [Mass/Vol] 95 mg/dL NINF - 130 mg/dL [facility] Cholesterol.total/Cho lesterol in HDL [Mass ratio] 2.4 {ratio} NINF - 4.5 [facility] Interpretation and review of laboratory results Normal [facility] Triglyceride [Mass/Vol] 40 mg/dL NINF - 150 mg/dL [facility] Comment on above: [<150 mg/dL: Desirab le] [150-199 mg/dL: Borderline] [200-499 mg/dL: High] [>500 mg/dL: Very High] No Panel Informationon 10-28 [facility] TSH W/FT4 REFLEXon Interpretation and review of laboratory results Normal [facility] TSH Qn 0.657 m[IU]/L [facility] C7-T1 Interlaminar Epidural Steroid Injectionon 02-21-2023 Jonn Marley MD 02/21/2023 2:16 PM C7-T1 Interlaminar Epidural Steroid Injection Date/Time: 02/21/2023 1:45 PM Performed by: Jonn Marley MD Authorized by: Jonn Marley MD Procedure Details: Procedure performed: cervical JEANINE - interlaminar After informed consent was obtained, the patient was escorted back to the procedure room and placed in the prone position on the procedure table. Verbal verification and time-out was performed and all present were in agreement. Vital sign monitoring was initiated. The patient was sterilely prepped and draped in usual fashion with chlorhexidine gluconate 4% antiseptic solution. Procedure guidance: fluoroscopy The fluoroscope was brought into the field and a PA image was obtained to identify the appropriate vertebral body. The anterior and posterior aspects of the superior endplate of the vertebral body were superimposed upon one another. A point on the skin overlying the proposed site of needle entry was marked. The skin and subcutaneous tissues overlying the proposed needle entry site were anesthetized with 2 mL of lidocaine 1%. A 20 G inch Tuohy needle was advanced to the epidural space area. Needle depth was periodically evaluated using fluoroscopic imaging. Correct final needle position was confirmed with anteroposterior and contralateral oblique fluoroscopic imaging. Under live fluoroscopy 2 mL iohexol 300 MG/ML was injected following negative aspiration for heme and air. Adequate contrast spread was confirmed. Medication Verification: I have personally verified and performed the final check of the medication(s) used in this procedure prior to administration. The following items were included during the verification process for medication(s) administered: drug name, strength, volume, expiration, physical integrity and appearance of the medication(s). A solution of 2 mL Sodium chloride (PF) 0.9 %; 40 mg methylPREDNISolone acetate 40 MG/ML was divided equally among the affected levels and injected. After completion of the injection, the needle was flushed and removed. The above listed procedure was done for: Left C7-T1 Right C7-T1 Post Procedure Details: Complications: none The procedure was tolerated well. The patient was transported to the recovery room where they were observed for at least 20 minutes prior to discharge. The patient was discharged to home. They were advised to contact the office with any questions or concerns. Pre Procedure Details: Informed consent was obtained. Risks and benefits were explained to the patient and they wish to proceed. We discussed risks (pain, bleeding, infection, CSF leak, positional headache, artery injury, paralysis, nerve injury, medication allergy, seizure, stroke and ), benefits (pain relief and increase in function and improvement of QoL), and process involved. Patient's pain severity pre-procedure: 02/22 Patient's pain severity post-procedure: 07/25 [facility] Radiology Study observation (narrative) [facility] MR Ankle - right WO contrast on 01-25-2023 IMPRESSION: 1. 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 2. Remote healed fracture of the calcaneus. 3. Evidence of remote injuries involving the talofibular and calcaneofibular ligaments. 4. No osteochondral lesion appreciated. OLOGY EXAM: MRI ANKLE RIGH T WITHOUT CONTRAST, 01/25/2023 08:32 AM CLINICAL INDICATIONS: Ankle pain, osteochondral lesion suspected, neg xray; remote h/o chondrosarcoma left hand, h/o right calcaneal fx; RELEVANT CLINICAL HISTORY: Z85.830:History of chondrosarcoma M81.0:Osteoporosis without current pathological fracture, unspecified osteoporosis type M79.671:Pain in right foot M79.671:Chronic pain of right heel G89.29:Chronic pain of right heel M25.571:Acute right ankle pain COMPARISON: December 28, 2022 TECHNIQUE: Multiplanar multisequence imaging of the ankle was performed without the use of intravenous contrast. FINDINGS: Effusion: No significant joint effusion. Soft Tissue: Subcutaneous edema posteriorly, anteriorly, and medially at the right ankle. Ligaments: The components of the lateral collateral ligament, deltoid ligament, and syndesmotic ligaments appear grossly intact. Lateral collateral ligaments are thickened compatible with remote trauma. Tendons: The Achilles tendon, extensor tendons, flexor tendons, and peroneal tendons appear grossly intact. Plantar Fascia: Plantar fascia and surrounding soft tissue are unremarkable. Bone: No talar osteochondral defect. Contour deformity of the calcaneus compatible with remote healed fracture. Narrowed interface between the medial process of the talus and the sustentaculum deysi with associated degenerative changes including subchondral sclerosis and marginal osteophytes. Very mild amount of adjacent marrow edema. Joint: The tibiotalar joint and visualized intertarsal joints are anatomically aligned. RADIOLOGY Chidi Talley MD - 01/25/2023 EXAM: MRI ANKLE RIGHT WITHOUT CONTRAST, 01/25/2023 08:32 AM CLINICAL INDICATIONS: Ankle pain, osteochondral lesion suspected, neg xray; remote h/o chondrosarcoma left hand, h/o right calcaneal fx; RELEVANT CLINICAL HISTORY: Z85.830:History of chondrosarcoma M81.0:Osteoporosis without current pathological fracture, unspecified osteoporosis type M79.671:Pain in right foot M79.671:Chronic pain of right heel G89.29:Chronic pain of right heel M25.571:Acute right ankle pain COMPARISON: December 28, 2022 TECHNIQUE: Multiplanar multisequence imaging of the ankle was performed without the use of intravenous contrast. FINDINGS: Effusion: No significant joint effusion. Soft Tissue: Subcutaneous edema posteriorly, anteriorly, and medially at the right ankle. Ligaments: The components of the lateral collateral ligament, deltoid ligament, and syndesmotic ligaments appear grossly intact. Lateral collateral ligaments are thickened compatible with remote trauma. Tendons: The Achilles tendon, extensor tendons, flexor tendons, and peroneal tendons appear grossly intact. Plantar Fascia: Plantar fascia and surrounding soft tissue are unremarkable. Bone: No talar osteochondral defect. Contour deformity of the calcaneus compatible with remote healed fracture. Narrowed interface between the medial process of the talus and the sustentaculum deysi with associated degenerative changes including subchondral sclerosis and marginal osteophytes. Very mild amount of adjacent marrow edema. Joint: The tibiotalar joint and visualized intertarsal joints are anatomically aligned. IMPRESSION IMPRESSION: 1. 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 2. Remote healed fracture of the calcaneus. 3. Evidence of remote injuries involving the talofibular and calcaneofibular ligaments. 4. No osteochondral lesion appreciated. [facility] Radiology Study observation (narrative) [facility] MR Ankle - right WO contrast Ordered By: Chidi Talley on 01-25-2023 [facility] Work Phone: [email or web address] Lower extremity a rtery - rightOrdered By: Marita Nolan on 01-09-2023 [facility] Work Phone: [email or web address] Lower extremity a rtery - righton 01-09-2023 Radiology Study observation (narrative) [facility] XR Chest PA and Lateralon IMPRESSION: Stable exam without findings to suggest thoracic metastases. OLOGY EXAM: XR CHEST PA AN D LATERAL, 01/04/2023 11:14 AM CLINICAL INDICATIONS: histroy of chondrosarcoma, emphysema RELEVANT CLINICAL HISTORY: Z85.830:History of chondrosarcoma M81.0:Osteoporosis without current pathological fracture, unspecified osteoporosis type M79.671:Pain in right foot M79.671:Chronic pain of right heel G89.29:Chronic pain of right heel COMPARISON: November 21, 2021 FINDINGS: Mild apical scarring, similar to the previous study. Chain sutures in the left lung. Pulmonary hyperinflation suggesting emphysema, unchanged. No superimposed opacities or nodules to suggest pulmonary metastatic disease. Normal heart size. No pulmonary edema. Normal bones. RADIOLOGY Pierce Srinivasan M D, PhD - 01/04/2023 EXAM: XR CHEST PA AND LATERAL, 01/04/2023 11:14 AM CLINICAL INDICATIONS: histroy of chondrosarcoma, emphysema RELEVANT CLINICAL HISTORY: Z85.830:History of chondrosarcoma M81.0:Osteoporosis without current pathological fracture, unspecified osteoporosis type M79.671:Pain in right foot M79.671:Chronic pain of right heel G89.29:Chronic pain of right heel COMPARISON: November 21, 2021 FINDINGS: Mild apical scarring, similar to the previous study. Chain sutures in the left lung. Pulmonary hyperinflation suggesting emphysema, unchanged. No superimposed opacities or nodules to suggest pulmonary metastatic disease. Normal heart size. No pulmonary edema. Normal bones. IMPRESSION IMPRESSION: Stable exam without findings to suggest thoracic metastases. [facility] Radiology Study observation (narrative) [facility] XR Chest PA and LateralOrder ed By: Pierce Srinivasan on 01-04-2023 [facility] Work Phone: No Panel Informationon 12-28 IMPRESSION: 1. No acute osseous abnormality. 2. Jey deformity. 3. Diffuse bone demineralization. I personally viewed and interpreted these images and I have reviewed and approved this report. OLOGY EXAM: XR CALCANEUS RIGHT 2 VIEWS, XR ANKLE RIGHT 3 VIEWS , 12/28/2022 12:35 PM COMPARISON: Right ankle radiographs dated July 22, 2021 CLINICAL INDICATIONS: Pt with hx of chondrosarcoma of left hand, with increasing pain and concern for osseous abnormality of foot RELEVANT CLINICAL HISTORY: M79.671:Right foot pain FINDINGS: 2 views, 2 nonweightbearing images of the right calcaneus 3 views, 3 nonweightbearing images of the right ankle Effusion: There is no joint effusion. Soft Tissue: There is no significant soft tissue swelling. Bone: No acute osseous abnormality is identified. Jey deformity of the calcaneus. Diffuse bone demineralization. The distal tibia and fibula appear intact. The syndesmosis is anatomically aligned. Talar dome is intact. Joint: Joint spaces are grossly intact. RADIOLOGY Yair Pham MD - 12/28/2022 EXAM: XR CALCANEUS RIGHT 2 VIEWS, XR ANKLE RIGHT 3 VIEWS , 12/28/2022 12:35 PM COMPARISON: Right ankle radiographs dated July 22, 2021 CLINICAL INDICATIONS: Pt with hx of chondrosarcoma of left hand, with increasing pain and concern for osseous abnormality of foot RELEVANT CLINICAL HISTORY: M79.671:Right foot pain FINDINGS: 2 views, 2 nonweightbearing images of the right calcaneus 3 views, 3 nonweightbearing images of the right ankle Effusion: There is no joint effusion. Soft Tissue: There is no significant soft tissue swelling. Bone: No acute osseous abnormality is identified. Jey deformity of the calcaneus. Diffuse bone demineralization. The distal tibia and fibula appear intact. The syndesmosis is anatomically aligned. Talar dome is intact. Joint: Joint spaces are grossly intact. IMPRESSION IMPRESSION: 1. No acute osseous abnormality. 2. Jey deformity. 3. Diffuse bone demineralization. I personally viewed and interpreted these images and I have reviewed and approved this report. [facility] No Panel InformationOrdered By: Yair Pham on 12-28-2022 [facility] Work Phone: XR Ankle - right 3 Viewson 0 12-28-2022 Radiology Study observation (narrative) [facility] XR Calcaneus - right Viewson 12-28-2022 Radiology Study observation (narrative) [facility] COMPREHENSIVE METABOLIC PANE Ajith 11-07-2022 Albumin [Mass/Vol] 4.4 g/dL 3.5 - 5.0 g/dL [facility] ALP [Catalytic activity/Vol] 81 U/L 32 - 126 U/L [facility] ALT [Catalytic activity/Vol] 14 U/L 9 - 48 U/L [facility] Anion gap [Moles/Vol] 10 mmol/L 7 - 17 mmol/L [facility] AST [Catalytic activity/Vol] 14 U/L 10 - 39 U/L [facility] Bilirubin [Mass/Vol] 0.3 mg/dL NINF - 1.5 mg/dL [facility] Calcium [Mass/Vol] 9.9 mg/dL 8.6 - 10. 5 mg/dL [facility] Chloride [Moles/Vol] 105 mmol/L 98 - 10 8 mmol/L [facility] CO2 [Moles/Vol] 29 mmol/L 21 - 31 mmol/L [facility] Creatinine [Mass/Vol] 0.73 mg/dL 0.50 - 1.20 mg/dL [facility] GFR/1.73 sq M.predicted CKD-EPI (S/P/Bld) [Vol rate/Area] - PINF [facility] Comment on above: Reported eGFR is bas ed on the CKD-EPI 2020 equation using creatinine, age, and sex. Glucose [Mass/Vol] 90 mg/dL 70 - 99 mg/dL [facility] Osmolality Calc [Osmolality] 292 [facility] Potassium [Moles/Vol] 4.2 mmol/L 3.5 - 5.0 mmol/L [facility] Protein [Mass/Vol] 7.0 g/dL 6.4 - 8.3 g/dL [facility] Sodium [Moles/Vol] 140 mmol/L 135 - 145 mmol/L [facility] Urea nitrogen [Mass/Vol] 11 mg/dL 7 - 25 mg/dL [facility] Urea nitrogen/Creatinine [Mass ratio] 15 mg/mg [facility] LIPID PANEL W CALCULATED LDL on 11-07-2022 Cholesterol [Mass/Vol] 241 mg/dL High NINF - 200 mg/dL [facility] Comment on above: [<200 mg/dL: Desirab le] [200-239 mg/dL: Borderline High] [>239 mg/dL: High] Cholesterol in HDL [Mass/Vol] 55 mg/dL 40 - PINF mg/dL [facility] Comment on above: [<40 mg/dL: Low (Hig h Risk)] [>59 mg/dL: High (Low Risk)] Cholesterol in HDL [Mass/Vol] 186 mg/dL High NINF - 130 mg/dL [facility] Cholesterol in LDL [Mass/Vol] 167 mg/dL High 0 - 99 mg/dL [facility] Comment on above: [<100 mg/dL: Optimal ] [100-129 mg/dL: Near Optimal] [130-159 mg/dL: Borderline High] [160-189 mg/dL: High] [>189 mg/dL: Very High] Cholesterol.total/Cho lesterol in HDL [Mass ratio] 4.4 {ratio} NINF - 4.5 [facility] Interpretation and review of laboratory results Abnormal [facility] Triglyceride [Mass/Vol] 97 mg/dL NINF - 150 mg/dL [facility] Comment on above: [<150 mg/dL: Desirab le] [150-199 mg/dL: Borderline] [200-499 mg/dL: High] [>500 mg/dL: Very High] No Panel Informationon 11-07 [facility] TSH W/FT4 REFLEXon Interpretation and review of laboratory results Normal [facility] TSH Qn 1.306 m[IU]/L [facility] VITAMIN D (25-HYDROXY,TOTAL) on 11-07-2022 Interpretation and review of laboratory results Normal [facility] Vitamin D+Metabolites [Mass/Vol] 43.1 ng/mL 30.0 - 100.0 ng/mL [facility] Comment on above: <10 Deficiency 10-29 Insufficiency 30-100 Optimal Level >100 Possible Toxicity Vitamin D values hav e been shown to be falsely decreased in lipemic samples and should be interpreted with caution. [facility] CT Chest WO contraston 02-22 IMPRESSION: 1. No significant change in right lower lobe nodules/lesions. No new suspicious nodule. Continued attention on follow-up scan is recommended. 2. Similar-appearing biapical scarring and emphysematous changes. I personally viewed and interpreted these images and I have reviewed and approved this report. OLOGY EXAM: CT CHEST WITHO UT CONTRAST, 02/22/2022 11:29 AM COMPARISON: CT chest 12/20/2021 and nuclear PET 01/17/2022 CLINICAL INDICATIONS: Abnormal xray - lung nodule, < 1 cm, mod-high risk; RELEVANT CLINICAL HISTORY: R91.1:Lung nodule TECHNIQUE: CT images of the chest were obtained without intravenous contrast. FINDINGS: Lungs and Pleura: Left upper lobe wedge resection. Stable biapical pleural parenchymal scarring. Bilateral apical predominant paraseptal and centrilobular emphysematous changes. Stable lobulated nodule in the right lower lobe/azygos esophageal recess measures 0.8 x 0.6 cm (series 2 image 41), and did not demonstrate significant metabolic activity. Stable additional right lower lobe small cavitary lesion (series 7 image 201). Stable other scattered pulmonary micronodules best appreciated on coronal MIPS. No new or enlarging nodule. Remote granulomatous disease. No consolidation. No pleural fluid. Tracheobronchial tree: Diffuse bronchial wall thickening, with areas of mucous plugging. Mediastinum/Shavonne: No mediastinal or hilar lymphadenopathy. Calcified granulomatous lymph nodes. Stable anterior mediastinal triangular shaped nodular density (series 2, image 25), back to 2016. Axilla and Supraclavicular Regions: No axillary or supraclavicular adenopathy. Cardiovascular: The cardiac chambers are within normal limits. The pericardium is normal. Mild atherosclerotic calcifications of the aorta. Mild coronary calcifications. The pulmonary arteries are grossly unremarkable. Upper Abdomen: Limited evaluation. Atherosclerotic calcifications. Splenic calcified granulomas. Bones and Soft Tissue: No suspicious osseous lesion. Diffuse osseous demineralization. Stable mild compression deformity of T10 superior endplate with punctate sclerotic focus RADIOLOGY Mario, ERNIE Franco/OWEN - 02/22/2022 EXAM: CT CHEST WITHOUT CONTRAST, 02/22/2022 11:29 AM COMPARISON: CT chest 12/20/2021 and nuclear PET 01/17/2022 CLINICAL INDICATIONS: Abnormal xray - lung nodule, < 1 cm, mod-high risk; RELEVANT CLINICAL HISTORY: R91.1:Lung nodule TECHNIQUE: CT images of the chest were obtained without intravenous contrast. FINDINGS: Lungs and Pleura: Left upper lobe wedge resection. Stable biapical pleural parenchymal scarring. Bilateral apical predominant paraseptal and centrilobular emphysematous changes. Stable lobulated nodule in the right lower lobe/azygos esophageal recess measures 0.8 x 0.6 cm (series 2 image 41), and did not demonstrate significant metabolic activity. Stable additional right lower lobe small cavitary lesion (series 7 image 201). Stable other scattered pulmonary micronodules best appreciated on coronal MIPS. No new or enlarging nodule. Remote granulomatous disease. No consolidation. No pleural fluid. Tracheobronchial tree: Diffuse bronchial wall thickening, with areas of mucous plugging. Mediastinum/Shavonne: No mediastinal or hilar lymphadenopathy. Calcified granulomatous lymph nodes. Stable anterior mediastinal triangular shaped nodular density (series 2, image 25), back to 2016. Axilla and Supraclavicular Regions: No axillary or supraclavicular adenopathy. Cardiovascular: The cardiac chambers are within normal limits. The pericardium is normal. Mild atherosclerotic calcifications of the aorta. Mild coronary calcifications. The pulmonary arteries are grossly unremarkable. Upper Abdomen: Limited evaluation. Atherosclerotic calcifications. Splenic calcified granulomas. Bones and Soft Tissue: No suspicious osseous lesion. Diffuse osseous demineralization. Stable mild compression deformity of T10 superior endplate with punctate sclerotic focus IMPRESSION IMPRESSION: 1. No significant change in right lower lobe nodules/lesions. No new suspicious nodule. Continued attention on follow-up scan is recommended. 2. Similar-appearing biapical scarring and emphysematous changes. I personally viewed and interpreted these images and I have reviewed and approved this report. [facility] Radiology Study observation (narrative) [facility] CT Chest WO contrastOrdered By: Damaso Martin on 02-22-2022 [facility] GLUCOSE POCon 01-17-2022 Glucose [Mass/Vol] 99 mg/dL 70 - 99 mg/dL [facility] POC Sample Type CAPBL [facility] Test performed at address of the patient encounter. U [facility] PT Unspecified body regionon 01-17-2022 IMPRESSION: 1. Lobular nodule in the right lower lobe does not demonstrate metabolic activity, nonspecific. A right lower lobe groundglass nodule with central cavitation more laterally demonstrates faint to mild metabolic activity, indeterminate. Recommend close attention on follow-up to rule out a progressive process. 2. Nodular consolidation in the apical left upper lobe is new since prior CT chest and demonstrates focal moderate to intense metabolic activity. Query infectious/inflammatory etiology. Attention on follow-up. 3. Moderately metabolic aorticopulmonary window and left internal mammary lymph nodes, likely reactive to left upper lobe intrapulmonary process. Thank you for allowing [facility] at [facility] to assist in the care of this patient. OLOGY EXAM: NUC PET OTHER, 01/17/2022 11:44 AM CLINICAL INDICATIONS: Lung nodule, 6-8mm; high risk for lung cancer; , COMPARISON: Compared to remote prior PET/CT study dated February 12, 2009. CT chest December 20, 2021 CT DOSE: DLP: 337 mGy x cm kVp: 120 TECHNIQUE: The patient's fasting blood glucose was 99 mg/dl. Approximately 66 minutes following the injection of 14.2 mCi of F-18 FDG, the patient was positioned on the Siemens Biograph mCT TOF< PET/CT-64, Zheng imaging unit. A low resolution non-contrast CT was obtained from the top of the head through the mid-femurs for use in attenuation correction and anatomic correlation. PET emission scans of this anatomic region were acquired shortly thereafter. Axial, sagittal, coronal and maximal intensity projection reconstruction images were presented for interpretation. For reference SUV mean/max right hepatic lobe: 1.7/2.1 SUV mean/max descending thoracic aorta: 1.4/1.7 FINDINGS: Head/Neck: Nonspecific FDG uptake in the nasopharynx and base of tongue. Physiologic FDG uptake is noted in the salivary glands and tonsillar tissue. There is no hypermetabolic cervical or supraclavicular lymphadenopathy. Normal, intense physiologic uptake is noted in the cerebral cortex castillo matter and subcortical nuclei without gross hypermetabolic abnormality. Chest: Pleural parenchymal scarring in the apices. Emphysema. Left upper lobe wedge or section. New nodular consolidation in the apical left upper lobe demonstrates focal moderate to intense FDG uptake SUV max 4.6 (series 4 image 92). Lobular nodule in the azygos esophageal recess of the right lower lobe does not demonstrate significant FDG uptake SUV max 2.7 (series 4 image 139). A right lower lobe groundglass nodule with central cavitation more laterally demonstrates faint to mild FDG uptake SUV max 0.9 (series 4 image 138). Prominent aortopulmonary window lymph node demonstrates focal moderate FDG uptake measuring 10 x 11 mm SUV max 3.0 (series 4 image 115). Moderately metabolic left internal mammary lymph node SUV max 3.1 (series 4 image 150). There is no hypermetabolic axillary, or hilar lymphadenopathy. Physiologic FDG uptake is seen in the myocardium. Abdomen/Pelvis: Multifocal FDG uptake in the ascending colon is nonspecific. Diffuse FDG uptake in the gastric díaz; query gastritis. Physiologic FDG uptake is seen throughout the liver and spleen. Physiologic FDG excretion is seen in the kidneys, ureters, and bladder. There are no hypermetabolic lesions in the adrenal glands. There is no hypermetabolic inguinal, retroperitoneal, paraaortic or portocaval lymphadenopathy. Musculoskeletal: There is physiologic FDG uptake throughout the axial and proximal appendicular skeleton. No focal hypermetabolic osseous lesions are identified. RADIOLOGY Nanette-Ku, James Vitale MD - 01/17/2022 EXAM: NUC PET OTHER, 01/17/2022 11:44 AM CLINICAL INDICATIONS: Lung nodule, 6-8mm; high risk for lung cancer; , COMPARISON: Compared to remote prior PET/CT study dated February 12, 2009. CT chest December 20, 2021 CT DOSE: DLP: 337 mGy x cm kVp: 120 TECHNIQUE: The patient's fasting blood glucose was 99 mg/dl. Approximately 66 minutes following the injection of 14.2 mCi of F-18 FDG, the patient was positioned on the Siemens Biograph mCT TOF< PET/CT-64, [facility] imaging unit. A low resolution non-contrast CT was obtained from the top of the head through the mid-femurs for use in attenuation correction and anatomic correlation. PET emission scans of this anatomic region were acquired shortly thereafter. Axial, sagittal, coronal and maximal intensity projection reconstruction images were presented for interpretation. For reference SUV mean/max right hepatic lobe: 1.7/2.1 SUV mean/max descending thoracic aorta: 1.4/1.7 FINDINGS: Head/Neck: Nonspecific FDG uptake in the nasopharynx and base of tongue. Physiologic FDG uptake is noted in the salivary glands and tonsillar tissue. There is no hypermetabolic cervical or supraclavicular lymphadenopathy. Normal, intense physiologic uptake is noted in the cerebral cortex castillo matter and subcortical nuclei without gross hypermetabolic abnormality. Chest: Pleural parenchymal scarring in the apices. Emphysema. Left upper lobe wedge or section. New nodular consolidation in the apical left upper lobe demonstrates focal moderate to intense FDG uptake SUV max 4.6 (series 4 image 92). Lobular nodule in the azygos esophageal recess of the right lower lobe does not demonstrate significant FDG uptake SUV max 2.7 (series 4 image 139). A right lower lobe groundglass nodule with central cavitation more laterally demonstrates faint to mild FDG uptake SUV max 0.9 (series 4 image 138). Prominent aortopulmonary window lymph node demonstrates focal moderate FDG uptake measuring 10 x 11 mm SUV max 3.0 (series 4 image 115). Moderately metabolic left internal mammary lymph node SUV max 3.1 (series 4 image 150). There is no hypermetabolic axillary, or hilar lymphadenopathy. Physiologic FDG uptake is seen in the myocardium. Abdomen/Pelvis: Multifocal FDG uptake in the ascending colon is nonspecific. Diffuse FDG uptake in the gastric díaz; query gastritis. Physiologic FDG uptake is seen throughout the liver and spleen. Physiologic FDG excretion is seen in the kidneys, ureters, and bladder. There are no hypermetabolic lesions in the adrenal glands. There is no hypermetabolic inguinal, retroperitoneal, paraaortic or portocaval lymphadenopathy. Musculoskeletal: There is physiologic FDG uptake throughout the axial and proximal appendicular skeleton. No focal hypermetabolic osseous lesions are identified. IMPRESSION IMPRESSION: 1. Lobular nodule in the right lower lobe does not demonstrate metabolic activity, nonspecific. A right lower lobe groundglass nodule with central cavitation more laterally demonstrates faint to mild metabolic activity, indeterminate. Recommend close attention on follow-up to rule out a progressive process. 2. Nodular consolidation in the apical left upper lobe is new since prior CT chest and demonstrates focal moderate to intense metabolic activity. Query infectious/inflammatory etiology. Attention on follow-up. 3. Moderately metabolic aorticopulmonary window and left internal mammary lymph nodes, likely reactive to left upper lobe intrapulmonary process. Thank you for allowing Nuclear Medicine Oncology Imaging at [facility] to assist in the care of this patient. [facility] Radiology Study observation (narrative) [facility] PT Unspecified body regionOr dered By: Merrick Devine on 01-17-2022 [facility] Work Phone: CBC,PLATELETSon 11-22-2021 Erythrocyte distribution width (RBC) [Ratio] 12.5 % 10.8 - 14.9 % [facility] Hematocrit (Bld) [Volume fraction] 42.3 % 34.9 - 44.3 % [facility] Hemoglobin (Bld) [Mass/Vol] 14.1 g/dL 11.4 - 15.2 g/dL [facility] Interpretation and review of laboratory results Normal [facility] MCH (RBC) [Entitic mass] 31.3 pg 25.9 - 33.[address] [facility] MCHC (RBC) [Mass/Vol] 33.3 g/dL 31.4 - 35.9 g/dL [facility] MCV (RBC) [Entitic vol] 94.0 fL 79.6 - 97.[address] [facility] Platelet mean volume (Bld) [Entitic vol] 10.5 fL 8.5 - 12.[address] [facility] Platelets (Bld) [#/Vol] 233 10*3/uL 150 - 393 K/uL [facility] RBC (Bld) [#/Vol] 4.50 10*6/uL [facility] WBC (Bld) [#/Vol] 8.62 10*3/uL 3.99 - 11. 19 K/uL [facility] CHEM 7 (LYTES,BUN,CREA,GLUC) on 11-22-2021 Anion gap [Moles/Vol] 13 mmol/L 7 - 17 mmol/L [facility] Chloride [Moles/Vol] 107 mmol/L 98 - 10 8 mmol/L [facility] CO2 [Moles/Vol] 22 mmol/L 21 - 31 mmol/L [facility] Creatinine [Mass/Vol] 0.88 mg/dL 0.50 - 1.20 mg/dL [facility] GFR/1.73 sq M.predicted CKD-EPI (S/P/Bld) [Vol rate/Area] 75 >=60 mL/min/1.73m 2 [facility] Comment on above: Reported eGFR is bas ed on the CKD-EPI 2020 equation using creatinine, age, and sex. Glucose [Mass/Vol] 99 mg/dL 70 - 99 mg/dL [facility] Osmolality Calc [Osmolality] 291 [facility] Potassium [Moles/Vol] 4.3 mmol/L 3.5 - 5.0 mmol/L [facility] Sodium [Moles/Vol] 138 mmol/L 135 - 145 mmol/L [facility] Urea nitrogen [Mass/Vol] 16 mg/dL 7 - 25 mg/dL [facility] Urea nitrogen/Creatinine [Mass ratio] 18 mg/mg [facility] LT BLUE TOP TUBEon 2 [facility] MAGNESIUMon 11-22-2021 Interpretation and review of laboratory results Normal [facility] Magnesium [Mass/Vol] 2.3 mg/dL 1.6 - 2 .6 mg/dL [facility] No Panel Informationon 11-22 [facility] B-TYPE NATRIURETIC PEPTIDE ( BRAIN)on 11-21-2021 Interpretation and review of laboratory results Normal [facility] Natriuretic peptide B (Bld) [Mass/Vol] 24 pg/mL 0 - 100 pg/mL [facility] CBC AND ELECTRONIC DIFFon Basophils (Bld) [#/Vol] 0.05 10*3/uL 0.00 - 0.15 K/uL [facility] Basophils/100 WBC (Bld) 0.5 % [facility] Differential cell count method Nom (Bld) Electronic Differential [facility] Eosinophils (Bld) [#/Vol] 0.83 10*3/uL High 0.00 - 0.42 K/uL [facility] Eosinophils/100 WBC (Bld) 8.1 % [facility] Erythrocyte distribution width (RBC) [Ratio] 12.7 % 10.8 - 14.9 % [facility] Hematocrit (Bld) [Volume fraction] 47.1 % High 34.9 - 44.3 % [facility] Hemoglobin (Bld) [Mass/Vol] 15.4 g/dL High 11.4 - 15.2 g/dL [facility] Immature granulocytes (Bld) [#/Vol] 0.04 10*3/uL <=0.09 [facility] Immature granulocytes/100 WBC (Bld) 0.4 % [facility] Interpretation and review of laboratory results Abnormal [facility] Lymphocytes (Bld) [#/Vol] 2.16 10*3/uL 1.16 - 3.51 K/uL [facility] Lymphocytes/100 WBC (Bld) 21.0 % [facility] MCH (RBC) [Entitic mass] 31.8 pg 25.9 - 33.[address] [facility] MCHC (RBC) [Mass/Vol] 32.7 g/dL 31.4 - 35.9 g/dL [facility] MCV (RBC) [Entitic vol] 97.1 fL 79.6 - 97.[address] [facility] Monocytes (Bld) [#/Vol] 0.68 10*3/uL 0.22 - 0.87 K/uL [facility] Monocytes/100 WBC (Bld) 6.6 % [facility] Neutrophils (Bld) [#/Vol] 6.55 10*3/uL 1.64 - 7.28 K/uL [facility] Nucleated RBC/100 WBC (Bld) [Ratio] 0.0 % <=0.2 /[address] [facility] Platelet mean volume (Bld) [Entitic vol] 10.0 fL 8.5 - 12.[address] [facility] Platelets (Bld) [#/Vol] 225 10*3/uL 150 - 393 K/uL [facility] RBC (Bld) [#/Vol] 4.85 10*6/uL [facility] Segmented neutrophils/100 WBC (Bld) 63.4 % [facility] WBC (Bld) [#/Vol] 10.31 10*3/uL 3.99 - 11 .19 K/uL [facility] CHEM 7 (LYTES,BUN,CREA,GLUC) on 11-21-2021 Anion gap [Moles/Vol] 13 mmol/L 7 - 17 mmol/L [facility] Chloride [Moles/Vol] 104 mmol/L 98 - 10 8 mmol/L [facility] CO2 [Moles/Vol] 25 mmol/L 21 - 31 mmol/L [facility] Creatinine [Mass/Vol] 0.79 mg/dL 0.50 - 1.20 mg/dL [facility] GFR/1.73 sq M.predicted CKD-EPI (S/P/Bld) [Vol rate/Area] 85 >=60 mL/min/1.73m 2 [facility] Comment on above: Reported eGFR is bas ed on the CKD-EPI 2020 equation using creatinine, age, and sex. Glucose [Mass/Vol] 92 mg/dL 70 - 99 mg/dL [facility] Interpretation and review of laboratory results Abnormal [facility] Osmolality Calc [Osmolality] 289 [facility] Potassium [Moles/Vol] 3.4 mmol/L Low 3.5 - 5.0 mmol/L [facility] Sodium [Moles/Vol] 139 mmol/L 135 - 145 mmol/L [facility] Urea nitrogen [Mass/Vol] 11 mg/dL 7 - 25 mg/dL [facility] Urea nitrogen/Creatinine [Mass ratio] 14 mg/mg [facility] D-DIMER,QUANTITATIVEon 11-21 Fibrin D-dimer FEU (PPP) [Mass/Vol] 0.44 <0.50 mcg/mL [facility] Comment on above: The D-Dimer assay is intended for use in conjuction with a clinical pretest probability (PTP) assessment model to exclude pulmonary embolism (PE) and as an aid in the diagnosis of Deep Vein Thrombosis (DVT) in outpatients suspected of PE or DVT. For the assay in use at [facility] ([facility]), a cutoff of <0.50 mcg/mL has a Negative Predictive Value of 99.7% for exclusion of DVT in low and moderate PTP patients. Interpretation and review of laboratory results Normal [facility] HIGH SENSITIVITY TROPONIN I - SINGLE ORDERon 11-21-2021 Interpretation and review of laboratory results Normal [facility] Troponin I.cardiac DL <= 0.01 ng/mL [Mass/Vol] 6 ng/L <34 [facility] MAGNESIUMon 11-21-2021 Interpretation and review of laboratory results Normal [facility] Magnesium [Mass/Vol] 2.0 mg/dL 1.6 - 2 .6 mg/dL [facility] No Panel Informationon 11-21 [facility] Portable XR Chest Views APon 11-21-2021 IMPRESSION: 1. No acute cardiopulmonary findings. 2. Emphysema. I personally viewed and interpreted these images and I have reviewed and approved this report. OLOGY EXAM: XR CHEST AP PORTABLE ED, 11/21/2021 12:32 PM COMPARISON: Chest radiograph dated 11/09/2021 CLINICAL INDICATIONS: SOB FINDINGS: (Adequate technique) Implanted Devices: None Thorax: No acute findings in the chest. The lungs are hyperexpanded, with relative lucency in the lung apices relative to the bases. Chain suture in the left apex. No pleural effusion or pneumothorax. The cardiomediastinal contour is normal. Degenerative changes of the spine. RADIOLOGY Kalyn Mensah M D - 11/21/2021 EXAM: XR CHEST AP PORTABLE ED, 11/21/2021 12:32 PM COMPARISON: Chest radiograph dated 11/09/2021 CLINICAL INDICATIONS: SOB FINDINGS: (Adequate technique) Implanted Devices: None Thorax: No acute findings in the chest. The lungs are hyperexpanded, with relative lucency in the lung apices relative to the bases. Chain suture in the left apex. No pleural effusion or pneumothorax. The cardiomediastinal contour is normal. Degenerative changes of the spine. IMPRESSION IMPRESSION: 1. No acute cardiopulmonary findings. 2. Emphysema. I personally viewed and interpreted these images and I have reviewed and approved this report. [facility] Radiology Study observation (narrative) [facility] Portable XR Chest Views APOr dered By: Kalyn Mensah on 11-21-2021 [facility] Work Phone: Laboratory - Chemistry and C hemistry - challengeon 11-11-2021 Procalcitonin [Mass/Vol] 0.04 ng/mL <0.50 [facility] Comment on above: Procalcitonin is an FDA-approved assay to help manage antibiotic treatment in patients with sepsis/septic shock and lower respiratory tract infections. Specifically, trending procalcitonin in these situations can be used to reduce the duration of antibiotics. Please refer to the Procalcitonin Guide on the Antimicrobial Stewardship Webpage for more guidance on how to use and trend procalcitonin in various clinical settings. [email or web address] [email or web address]/[email or web address].aspx?sourcedoc=/departments/[email or web address]/Documents/[email or web address] itonin.docx&action=default&DefaultItemOpen=1 Two common cutoffs associated with bacterial infections are as follows. Respiratory tract infections: >0.25 ng/mL Sepsis/septic shock: >0.5 ng/mL Procalcitonin should not be used alone as a diagnostic tool, however. All procalcitonin results should be interpreted in association with the patients clinical condition and all laboratory findings. No Panel Informationon 11-11 [facility] Interpretation and review of laboratory results Normal [facility] Laboratory - Coagulationon 0 11-10-2021 Fibrin D-dimer FEU (PPP) [Mass/Vol] 0.32 <0.50 mcg/mL FEU [facility] Comment on above: The D-Dimer assay is intended for use in conjuction with a clinical pretest probability (PTP) assessment model to exclude pulmonary embolism (PE) and as an aid in the diagnosis of Deep Vein Thrombosis (DVT) in outpatients suspected of PE or DVT. For the assay in use at [facility] ([facility]), a cutoff of <0.50 mcg/mL has a Negative Predictive Value of 99.7% for exclusion of DVT in low and moderate PTP patients. No Panel Informationon 11-10 [facility] Interpretation and review of laboratory results Normal [facility] No Panel InformationOrdered By: Nila Paniagua on 11-10-2021 [facility] Work Phone: SARS-CoV-2 (COVID-19) RNA NA A+probe Ql (Unsp spec)Ordered By: Kamaljit Cueva on 11-10-2021 Interpretation and review of laboratory results Normal [facility] SARS-CoV-2 (COVID-19) RdRp gene ASHLEY+probe Ql (Resp) Not detected NOT DETECTED [facility] Comment on above: [facility] Negative results do not preclude SARS-CoV-2 infection and should not be used as the sole basis for treatment or other patient management decisions. Optimum specimen types and timing for peak viral levels during infections caused by SARS-CoV-2 has not been determined. The possibility of a false negative result should especially be considered if the patient's recent exposures or clinical presentation suggest that SARS-CoV-2 infection is probable, and diagnostic tests for other causes of illness (e.g., other respiratory illness) are negative. Collection of a new specimen and re-testing may be necessary if the patient is critically ill or clinically deteriorating. This test was performed using isothermal nucleic acid amplification technology for the qualitative detection of SARS-CoV-2 nucleic acid. The test has been authorized by the FDA under an emergency use authorization for use by authorized laboratories. [facility] Laboratory - Chemistry and C hemistry - challengeon 11-09-2021 Natriuretic peptide B (Bld) [Mass/Vol] 14 pg/mL 0 - 100 pg/mL [facility] Phosphate [Mass/Vol] 3.4 mg/dL 2.2 - 4 .6 mg/dL [facility] Anion gap [Moles/Vol] 10 mmol/L 7 - 17 mmol/L [facility] Calcium [Mass/Vol] 9.6 mg/dL 8.6 - 10. 5 mg/dL [facility] Chloride [Moles/Vol] 103 mmol/L 98 - 10 8 mmol/L [facility] CO2 [Moles/Vol] 29 mmol/L 21 - 31 mmol/L [facility] Creatinine [Mass/Vol] 0.85 mg/dL 0.50 - 1.20 mg/dL [facility] GFR/1.73 sq M.predicted CKD-EPI (S/P/Bld) [Vol rate/Area] 78 >=60 mL/min/1.73m 2 [facility] Comment on above: Reported eGFR is bas ed on the CKD-EPI 2020 equation using creatinine, age, and sex. Glucose [Mass/Vol] 154 mg/dL High 70 - 99 mg/dL [facility] Magnesium [Mass/Vol] 2.0 mg/dL 1.6 - 2 .6 mg/dL [facility] Osmolality [facility]c [Osmolality] [facility] Potassium [Moles/Vol] 4.0 mmol/L 3.5 - 5.0 mmol/L [facility] Sodium [Moles/Vol] 138 mmol/L 135 - 145 mmol/L [facility] Urea nitrogen [Mass/Vol] 8 mg/dL 7 - 25 mg/dL [facility] Urea nitrogen/Creatinine [Mass ratio] 9 mg/mg [facility] Troponin I.cardiac DL <= 0.01 ng/mL [Mass/Vol] 5 ng/L <34 [facility] Laboratory - Hematology and Cell countson 11-09-2021 Basophils (Bld) [#/Vol] 0.05 10*3/uL 0.00 - 0.15 K/uL [facility] Basophils/100 WBC (Bld) 0.6 % [facility] Eosinophils (Bld) [#/Vol] 0.66 10*3/uL High 0.00 - 0.42 K/uL [facility] Eosinophils/100 WBC (Bld) 7.9 % [facility] Erythrocyte distribution width (RBC) [Ratio] 13.0 % 10.8 - 14.9 % [facility] Hematocrit (Bld) [Volume fraction] 44.6 % High 34.9 - 44.3 % [facility] Hemoglobin (Bld) [Mass/Vol] 15.1 g/dL 11.4 - 15.2 g/dL [facility] Immature granulocytes (Bld) [#/Vol] 10*3/uL <=0.09 K/uL [facility] Immature granulocytes/100 WBC (Bld) 0.2 % [facility] Lymphocytes (Bld) [#/Vol] 3.10 10*3/uL 1.16 - 3.51 K/uL [facility] Lymphocytes/100 WBC (Bld) 37.1 % [facility] MCH (RBC) [Entitic mass] 31.3 pg 25.9 - 33.[address] [facility] MCHC (RBC) [Mass/Vol] 33.9 g/dL 31.4 - 35.9 g/dL [facility] MCV (RBC) [Entitic vol] 92.5 fL 79.6 - 97.[address] [facility] Monocytes (Bld) [#/Vol] 0.66 10*3/uL 0.22 - 0.87 K/uL [facility] Monocytes/100 WBC (Bld) 7.9 % [facility] Neutrophils (Bld) [#/Vol] 3.86 10*3/uL 1.64 - 7.28 K/uL [facility] Nucleated RBC/100 WBC (Bld) [Ratio] 0.0 % <=0.2 /[address] [facility] Platelet mean volume (Bld) [Entitic vol] 10.5 fL 8.5 - 12.[address] [facility] Platelets (Bld) [#/Vol] 221 10*3/uL 150 - 393 K/uL [facility] RBC (Bld) [#/Vol] 4.82 10*6/uL [facility] Segmented neutrophils/100 WBC (Bld) 46.3 % [facility] WBC (Bld) [#/Vol] 8.35 10*3/uL 3.99 - 11. 19 K/uL [facility] No Panel Informationon 11-09 Interpretation and review of laboratory results Normal [facility] Interpretation and review of laboratory results Normal [facility] Interpretation and review of laboratory results Abnormal [facility] Interpretation and review of laboratory results Normal [facility] DIFF STATUS Electronic Differential [facility] Interpretation and review of laboratory results Abnormal [facility] XR Chest PA and Lateralon IMPRESSION: No acute cardiopulmonary disease. Emphysema. I personally viewed and interpreted these images and I have reviewed and approved this report. OLOGY EXAM: XR CHEST PA AN D LATERAL, 11/09/2021 18:20 PM COMPARISON: Chest radiograph from August 05, 2020 CLINICAL INDICATIONS: chest pain with cough FINDINGS: (Adequate technique) Implanted Devices: None Lungs: Suture material near the left lung apex. Hyperinflation with decreased markings. Lungs are otherwise clear. Pleural Spaces: No pleural effusion. No pneumothorax. Mediastinum and Shavonne: Normal Cardiac silhouette and great vessels: Normal heart size. Unremarkable aorta. Chest Wall: Degenerative changes of the spine. No acute osseous abnormality. RADIOLOGY Shine Cespedes MD - 11/09/2021 EXAM: XR CHEST PA AND LATERAL, 11/09/2021 18:20 PM COMPARISON: Chest radiograph from August 05, 2020 CLINICAL INDICATIONS: chest pain with cough FINDINGS: (Adequate technique) Implanted Devices: None Lungs: Suture material near the left lung apex. Hyperinflation with decreased markings. Lungs are otherwise clear. Pleural Spaces: No pleural effusion. No pneumothorax. Mediastinum and Shavonne: Normal Cardiac silhouette and great vessels: Normal heart size. Unremarkable aorta. Chest Wall: Degenerative changes of the spine. No acute osseous abnormality. IMPRESSION IMPRESSION: No acute cardiopulmonary disease. Emphysema. I personally viewed and interpreted these images and I have reviewed and approved this report. [facility] Radiology Study observation (narrative) [facility] XR Chest PA and LateralOrder ed By: Shine Cespedes on 11-09-2021 [facility] Work Phone: C REACTIVE PROTEINon 022 CRP High sensitivity method [Mass/Vol] 0.29 mg/L <10.00 [facility] Interpretation and review of laboratory results Normal [facility] C3,C4on 10-11-2021 Complement C3 [Mass/Vol] 143 mg/dL 87 - 200 mg/dL [facility] Complement C4 [Mass/Vol] 26 mg/dL 18 - 52 mg/dL [facility] Interpretation and review of laboratory results Normal [facility] CKon 10-11-2021 CK [Catalytic activity/Vol] 63 U/L 30 - 184 U/L [facility] Interpretation and review of laboratory results Normal [facility] CYCLIC CITRULLINATE PEPTIDE ABOrdered By: Tory Thomas on 10-11-2021 Cyclic citrullinated peptide Ab IA Qn (S) <0.5 <5.0 U/mL [facility] Interpretation and review of laboratory results Normal [facility] No Panel Informationon 10-11 [facility] RHEUMATOID FACTORon 10-12-19 Interpretation and review of laboratory results Abnormal [facility] Rheumatoid factor Qn 44 [IU]/mL High <=14 IU/mL [facility] SEDIMENTATION RATE, AUTOMATE DOrdered By: Gabriel Van on 10-11-2021 ESR (Bld) [Velocity] 11 mm/h <30 [facility] Interpretation and review of laboratory results Normal [facility] Provider Note - ED v2on Provider Note - ED v2 Provider Note - ED v2: Chart Review: HISTORY OF PRESENTING ILLNESS CHIN is a 59 year old Female and was seen by me at 21-Jan-2020 14:59. Triage Information: Most recent Vital Sign Value Date PAST MEDICAL HISTORY ATTESTATION: I have reviewed and confirmed nurse's/medic's notes for patient's medications, allergies, medical history, and surgical history ALLERGIES/INTOLERANCES: Allergy Allergen: Zithromax Type: Drug Reaction: Anaphylaxis HEALTH HISTORY: No documented data. OUTPATIENT MEDICATIONS: Home Medications Review Status for Reconciliation: Complete Med Status: Patient Currently Takes Medications Drug Name: fluticasone 50 mcg/inh inhalation powder Instructions: 1 puff(s) inhaled 2 times a day Drug Name: Spiriva Respimat 1.25 mcg/inh inhalation aerosol Instructions: 2 puff(s) inhaled once a day Drug Name: Calcium 600+D 600 mg-200 intl units (5 mcg) oral tablet Instructions: 1 tab(s) orally 3 times a day Drug Name: doxycycline monohydrate 100 mg oral tablet Instructions: 1 tab(s) orally 2 times a day SIGNIFICANT EVENTS: No documented data. STEM MAKER: Is : no Is : no RESULTS/VITAL SIGNS VITAL SIGNS: T PRBP SpO2O2(LPM) %FiO2 Method 21-Jan-2020 15:02:[id number] MEDICAL DECISION MAKING/ED COURSE MDM/ED COURSE: This note was generated with voice recognition software and may contain errors including spelling, grammar, syntax, and misrecognization of what was dictated Chief Complaint Tick bite History of Present Illness Patient presents in no apparent distress with a ten-day history of a tick bite to her abdomen. Patient states over the past 2 days she has developed a large spreading rash that itches. Patient states it is tender to touch and there is a hard area in the center. Patient denies use of any [id number] medications or home remedies prior to arrival for symptom management. Patient states only time his major symptoms worse or nothing makes them better. Review of Systems 10 systems reviewed negative with exception of history of present illness listed above Physical Examination General: Alert and oriented, No acute distress. Eye: Pupils are equal, round and reactive. HENT: Normocephalic Neck: Supple Respiratory: Respirations are non-labored, Symmetrical chest wall expansion Musculoskeletal: Normal range of motion, normal strength, there is some swelling and erythema noted to the lower abdomen below the umbilicus that is tender to touch Integumentary: [place], warm, dry, and Intact. A 10 cm round cellulitis is noted with a 1 cm indurated circular area below the umbilicus. There is no central clearing noted. Neurologic: Alert, Oriented, Normal sensory, Normal motor function. Cognition and Speech: Oriented, Speech clear and coherent. Psychiatric: Cooperative, Appropriate mood & affect. Impression and Plan Course: Worsening Plan: Patient will be discharged home with oral antibiotics, instructed to use appropriate over the counter medications for symptom management, and is instructed to follow-up with their primary care provider in 3-5 days for any increase in severity of symptoms or any additional concerns. Patient agrees with plan of care, questions were encouraged and answered. Patient will be given a 2 week round of doxycycline in the presence of cellulitis and also to rule out the possibility of Lyme disease. Patient Instructions: Cellulitis CLINICAL IMPRESSION Diagnosis/Annotation: ED Dx Name:Cellulitis of left abdominal wall Code:L03.311 Dispostion: discharged Type: home ATTESTATION CRITICAL CARE TIME Is this a critically ill patient: no Electronic Signatures: Tex Roldan (GATE SHEAR OPERATOR-PUBLIC SPEAKING PROFESSOR) (Signed 21-Jan-2020 15:19) Authored: Provider Note - ED v2 Last Updated: 21-Jan-2020 15:19 by Tex Roldan (GATE SHEAR OPERATOR-PUBLIC SPEAKING PROFESSOR) [facility] HEMOGLOBINon 06-13-2018 Hemoglobin mass conc (Bld) 15.7 g/dL High 11.4 - 15.2 g/dL BAM JAMISON Interpretation and review of laboratory results Abnormal Invalid Interpretation Code BAM JAMISON Vital Signs Date Time Vital Sign Value Performing Clinician Facility 04-20-2025 09:30-0400 Body height 162.56 cm [facility] Work Phone: [facility] 04-20-2025 09:30-0400 Body mass index (BMI) [Ratio] 16.9 kg/m2 [employer] Work Phone: [facility] 04-20-2025 09:30-0400 Body temperature 96.4 [degF] CHERI SWANK Work Phone: [facility] 04-20-2025 09:30-0400 Body weight 44.65 kg CHERI SWANK Work Phone: 0(617)[phone] [address] 04-20-2025 09:30-0400 Diastolic blood pressure 72 mm[Hg] CHERI SWANK Work Phone: 2(238)[phone] [address] 04-20-2025 09:30-0400 Heart rate 87 /min CHERI SWANK Work Phone: 5(255)[phone] [address] 04-20-2025 09:30-0400 Respiratory rate 16 /min CHERI SWANK Work Phone: 9(597)[phone] [address] 04-20-2025 09:30-0400 SaO2% (BldA) [Mass fraction] 97 % CHERI SWANK Work Phone: 6(956)[phone] [place] [address] 04-20-2025 09:30-0400 Systolic blood pressure 131 mm[Hg] CHERI SWANK Work Phone: [facility] 04-14-2025 13:57-0400 Body height 162.6 cm Alma Baptiste MD Work Phone: [facility] 04-14-2025 13:57-0400 Body mass index (BMI) [Ratio] 16.77 kg/m2 Alma Baptiste MD Work Phone: [facility] 04-14-2025 13:57-0400 Body weight 44.32 kg Alma Baptiste MD Work Phone: [facility] 04-14-2025 13:57-0400 Diastolic blood pressure 71 mm[Hg] Alma Baptiste MD Work Phone: [facility] 04-14-2025 13:57-0400 Heart rate 93 /min Alma Baptiste MD Work Phone: [facility] 04-14-2025 13:57-0400 Respiratory rate 18 /min Alma Baptiste MD Work Phone: [facility] 04-14-2025 13:57-0400 SaO2% (BldA) [Mass fraction] 93 % Alma Baptiste MD Work Phone: [facility] 04-14-2025 13:57-0400 Systolic blood pressure 117 mm[Hg] Alma Baptiste MD Work Phone: [facility] 04-10-2025 09:49-0400 Body mass index (BMI) [Ratio] 16.85 kg/m2 Zain Khanna MD, PhD Work Phone: [facility] 04-10-2025 09:49-0400 Body temperature 97.7 [degF] Zain Khanna MD, PhD Work Phone: [facility] 04-10-2025 09:49-0400 Body weight 44.04 kg Zain Khanna MD, PhD Work Phone: [facility] 04-10-2025 09:49-0400 Diastolic blood pressure 74 mm[Hg] Zain Khanna MD, PhD Work Phone: [facility] 04-10-2025 09:49-0400 Heart rate 88 /min Zain Khanna MD, PhD Work Phone: [facility] 04-10-2025 09:49-0400 Respiratory rate 16 /min Zain Khanna MD, PhD Work Phone: [facility] 04-10-2025 09:49-0400 SaO2% (BldA) [Mass fraction] 94 % Zain Khanna MD, PhD Work Phone: [facility] 04-10-2025 09:49-0400 Systolic blood pressure 118 mm[Hg] Zain Khanna MD, PhD Work Phone: [facility] 04-02-2025 13:40-0400 Body temperature 97.39 [degF] Shwetha Billingsleyu MBBS Work Phone: [facility] 04-02-2025 13:40-0400 Diastolic blood pressure 76 mm[Hg] Shwethachrissy Billingsleyu MBBS Work Phone: 4(527)[phone] [place] [address] 04-02-2025 13:40-0400 Heart rate 86 /min Shwethachrissy Billingsleyu MBBS Work Phone: 0(406)[phone] [place] [address] 04-02-2025 13:40-0400 Respiratory rate 22 /min Shwetha Billingsleyu MBBS Work Phone: [facility] 04-02-2025 13:40-0400 SaO2% (BldA) [Mass fraction] 94 % Shwetha Billingsleyu MBBS Work Phone: 0(245)[phone] [place] [address] 04-02-2025 13:40-0400 Systolic blood pressure 111 mm[Hg] Shwetha Billingsleyu MBBS Work Phone: [facility] 02-06-2025 12:55-0400 Body height 161.7 cm Shwetha KLEINBS Work Phone: 7(306)[phone] [place] [address] Comment on above: taken by Erendira 02/0602-06-2025 12:55-0400 Body mass index (BMI) [Ratio] 16.32 kg/m2 Shwetha Billingsleyu MBBS Work Phone: [facility] 02-06-2025 12:55-0400 Body temperature 97.59 [degF] Shwethachrissy Villalpandonu MBBS Work Phone: [facility] 02-06-2025 12:55-0400 Body weight 42.68 kg Shwetha Tiffany MBBS Work Phone: [facility] Comment on above: with shoes 02-06-2025 12:55-0400 Diastolic blood pressure 76 mm[Hg] Shwetha Tiffany MBBS Work Phone: [facility] 02-06-2025 12:55-0400 Heart rate 93 /min Shwetha Tiffany MBBS Work Phone: [facility] 02-06-2025 12:55-0400 Respiratory rate 16 /min Shwetha Tiffany MBBS Work Phone: [facility] 02-06-2025 12:55-0400 SaO2% (BldA) [Mass fraction] 93 % Shwetha Tiffany MBBS Work Phone: [facility] 02-06-2025 12:55-0400 Systolic blood pressure 135 mm[Hg] Shwetha Tiffany MBBS Work Phone: [facility] 01-28-2025 14:33-0400 Body height 162.6 cm Bran Currie MD Work Phone: [facility] 01-28-2025 14:33-0400 Body mass index (BMI) [Ratio] 16.14 kg/m2 Bran Currie MD Work Phone: [facility] 01-28-2025 14:33-0400 Body weight 42.64 kg Bran Currie MD Work Phone: [facility] 01-28-2025 14:33-0400 Diastolic blood pressure 72 mm[Hg] Bran Currie MD Work Phone: [facility] 01-28-2025 14:33-0400 Heart rate 82 /min Bran Currie MD Work Phone: [facility] 01-28-2025 14:33-0400 Respiratory rate 18 /min Bran Currie MD Work Phone: [facility] 01-28-2025 14:33-0400 SaO2% (BldA) [Mass fraction] 97 % Bran Currie MD Work Phone: [facility] 01-28-2025 14:33-0400 Systolic blood pressure 110 mm[Hg] Bran Currie MD Work Phone: [facility] 01-22-2025 09:18-0400 Body height 162.6 cm Yuliasumi MedinaAliya GATE SHEAR OPERATOR-PUBLIC SPEAKING PROFESSOR Work Phone: [facility] 01-22-2025 09:18-0400 Body mass index (BMI) [Ratio] 16.07 kg/m2 Yuliasumi MedinaAliya GATE SHEAR OPERATOR-PUBLIC SPEAKING PROFESSOR Work Phone: [facility] 01-22-2025 09:18-0400 Body temperature 97.11 [degF] Yuliasumi MedinaAliya GATE SHEAR OPERATOR-PUBLIC SPEAKING PROFESSOR Work Phone: [facility] 01-22-2025 09:18-0400 Body weight 42.46 kg Yulia Aliya GATE SHEAR OPERATOR-PUBLIC SPEAKING PROFESSOR Work Phone: [facility] 01-22-2025 09:18-0400 Diastolic blood pressure 74 mm[Hg] Yulia Medinacaid GATE SHEAR OPERATOR-PUBLIC SPEAKING PROFESSOR Work Phone: [facility] 01-22-2025 09:18-0400 Heart rate 83 /min Yuliasumi MedinaAliya GATE SHEAR OPERATOR-PUBLIC SPEAKING PROFESSOR Work Phone: [facility] 01-22-2025 09:18-0400 Respiratory rate 16 /min Yuliasumi MedinaCleves GATE SHEAR OPERATOR-PUBLIC SPEAKING PROFESSOR Work Phone: [facility] 01-22-2025 09:18-0400 Systolic blood pressure 115 mm[Hg] Yulia Aliya GATE SHEAR OPERATOR-PUBLIC SPEAKING PROFESSOR Work Phone: [facility] 02-04-2024 10:38-0400 Body height 162.6 cm Brad Whitaker MD Work Phone: [facility] 02-04-2024 10:38-0400 Body mass index (BMI) [Ratio] 16.41 kg/m2 Brad Whitaker MD Work Phone: [facility] 02-04-2024 10:38-0400 Body temperature 98.1 [degF] Brad Whitaker MD Work Phone: [facility] 02-04-2024 10:38-0400 Body weight 43.36 kg Brad Whitaker MD Work Phone: [facility] 02-04-2024 10:38-0400 Diastolic blood pressure 71 mm[Hg] Brad Whitaker MD Work Phone: [facility] 02-04-2024 10:38-0400 Heart rate 88 /min Brad Whitaker MD Work Phone: [facility] 02-04-2024 10:38-0400 Respiratory rate 18 /min Brad Whitaker MD Work Phone: [facility] 02-04-2024 10:38-0400 SaO2% (BldA) [Mass fraction] 97 % Brad Whitaker MD Work Phone: [facility] 02-04-2024 10:38-0400 Systolic blood pressure 131 mm[Hg] Brad Whitaker MD Work Phone: [facility] 01-08-2024 15:41-0400 Body height 160 cm Kamini SMALL Work Phone: [facility] 01-08-2024 15:41-0400 Body mass index (BMI) [Ratio] 16.65 kg/m2 Kamini SMALL Work Phone: [facility] 01-08-2024 15:41-0400 Body weight 42.65 kg Kamini Tiffany MBBS Work Phone: [facility] 01-08-2024 15:41-0400 Diastolic blood pressure 78 mm[Hg] Kamini Tiffany MBBS Work Phone: [facility] 01-08-2024 15:41-0400 Heart rate 79 /min Kamini Tiffany MBBS Work Phone: [facility] 01-08-2024 15:41-0400 SaO2% (BldA) [Mass fraction] 95 % Kamini Tiffany MBBS Work Phone: [facility] 01-08-2024 15:41-0400 Systolic blood pressure 118 mm[Hg] Kamini Tiffany MBBS Work Phone: [facility] 01-08-2024 11:54-0400 Body temperature 98.01 [degF] Jyoti Gavin MD Work Phone: [facility] 01-08-2024 11:54-0400 Diastolic blood pressure 67 mm[Hg] Jyoti Gavin MD Work Phone: [facility] 01-08-2024 11:54-0400 Heart rate 81 /min Jyoti Gavin MD Work Phone: [facility] 01-08-2024 11:54-0400 Respiratory rate 16 /min Jyoti Gavin MD Work Phone: [facility] 01-08-2024 11:54-0400 SaO2% (BldA) [Mass fraction] 94 % Jyoti Gavin MD Work Phone: [facility] 01-08-2024 11:54-0400 Systolic blood pressure 116 mm[Hg] Jyoti Gavin MD Work Phone: [facility] 01-08-2024 11:52-0400 Body height 160 cm Jyoti Gavin MD Work Phone: [facility] 10-29-2023 09:19-0400 Body height 162.6 cm Yulia Pisano APRN-PUBLIC SPEAKING PROFESSOR Work Phone: [facility] 10-29-2023 09:19-0400 Body mass index (BMI) [Ratio] 16.79 kg/m2 Yulia Pisano GATE SHEAR OPERATOR-PUBLIC SPEAKING PROFESSOR Work Phone: [facility] 10-29-2023 09:19-0400 Body temperature 97.9 [degF] Yulia Pisano GATE SHEAR OPERATOR-PUBLIC SPEAKING PROFESSOR Work Phone: [facility] 10-29-2023 09:19-0400 Body weight 44.36 kg Yulia Pisano GATE SHEAR OPERATOR-PUBLIC SPEAKING PROFESSOR Work Phone: [facility] 10-29-2023 09:19-0400 Diastolic blood pressure 68 mm[Hg] Yulia Pisano GATE SHEAR OPERATOR-PUBLIC SPEAKING PROFESSOR Work Phone: [facility] 10-29-2023 09:19-0400 Heart rate 88 /min Yulia Pisano GATE SHEAR OPERATOR-PUBLIC SPEAKING PROFESSOR Work Phone: [facility] 10-29-2023 09:19-0400 Respiratory rate 16 /min Yulia Pisano APRN-PUBLIC SPEAKING PROFESSOR Work Phone: [facility] 10-29-2023 09:19-0400 SaO2% (BldA) [Mass fraction] 95 % Yulia Pisano GATE SHEAR OPERATOR-PUBLIC SPEAKING PROFESSOR Work Phone: [facility] 10-29-2023 09:19-0400 Systolic blood pressure 107 mm[Hg] Yulia Pisano APRN-PUBLIC SPEAKING PROFESSOR Work Phone: [facility] 05-29-2023 08:27-0500 Body mass index (BMI) [Ratio] 16.92 kg/m2 Yulia Pisano GATE SHEAR OPERATOR-PUBLIC SPEAKING PROFESSOR Work Phone: [facility] 05-29-2023 08:27-0500 Body temperature 97.9 [degF] Yulia Pisano GATE SHEAR OPERATOR-PUBLIC SPEAKING PROFESSOR Work Phone: [facility] 05-29-2023 08:27-0500 Body weight 44.73 kg Yulia Pisano GATE SHEAR OPERATOR-PUBLIC SPEAKING PROFESSOR Work Phone: [facility] 05-29-2023 08:27-0500 Diastolic blood pressure 75 mm[Hg] Yulia Pisano GATE SHEAR OPERATOR-PUBLIC SPEAKING PROFESSOR Work Phone: [facility] 05-29-2023 08:27-0500 Heart rate 82 /min Yulia Pisano GATE SHEAR OPERATOR-PUBLIC SPEAKING PROFESSOR Work Phone: [facility] 05-29-2023 08:27-0500 Systolic blood pressure 109 mm[Hg] Yulia Pisano GATE SHEAR OPERATOR-PUBLIC SPEAKING PROFESSOR Work Phone: [facility] 02-21-2023 14:00-0400 Diastolic blood pressure 69 mm[Hg] Jonn Marley MD Work Phone: [facility] 02-21-2023 14:00-0400 Heart rate 79 /min Jonn Marley MD Work Phone: [facility] 02-21-2023 14:00-0400 Systolic blood pressure 127 mm[Hg] Jonn Marley MD Work Phone: [facility] 02-21-2023 13:40-0400 Body height 162.6 cm Jonn Marley MD Work Phone: [facility] 02-21-2023 13:40-0400 Body mass index (BMI) [Ratio] 16.31 kg/m2 Jonn Marley MD Work Phone: [facility] 02-21-2023 13:40-0400 Body temperature 97 [degF] Jonn Marley MD Work Phone: [facility] 02-21-2023 13:40-0400 Body weight 43.09 kg Jonn Marley MD Work Phone: [facility] 01-25-2023 08:02-0400 Diastolic blood pressure 77 mm[Hg] [facility] GATE SHEAR OPERATOR-PUBLIC SPEAKING PROFESSOR Work Phone: [facility] 01-25-2023 08:02-0400 Systolic blood pressure 115 mm[Hg] [facility] GATE SHEAR OPERATOR-PUBLIC SPEAKING PROFESSOR Work Phone: [facility] 01-09-2023 15:35-0400 Body height 162.6 cm Kamini Tiffany MBBS Work Phone: [facility] 01-09-2023 15:35-0400 Body mass index (BMI) [Ratio] 16 kg/m2 Kamini Tiffany MBBS Work Phone: [facility] 01-09-2023 15:35-0400 Body weight 42.27 kg Kamini Tiffany MBBS Work Phone: [facility] 01-09-2023 15:35-0400 Diastolic blood pressure 72 mm[Hg] Kamini Tiffany MBBS Work Phone: [facility] 01-09-2023 15:35-0400 Heart rate 90 /min Kamini Tiffany MBBS Work Phone: [facility] 01-09-2023 15:35-0400 Respiratory rate 12 /min Kamini Tiffany MBBS Work Phone: [facility] 01-09-2023 15:35-0400 SaO2% (BldA) [Mass fraction] 99 % Kamini Tiffany MBBS Work Phone: [facility] 01-09-2023 15:35-0400 Systolic blood pressure 104 mm[Hg] Kamini Villalpandonu MBBS Work Phone: [facility] 01-09-2023 14:00-0400 Body height 165.1 cm Diegoneeta Mckeon GATE SHEAR OPERATOR-PUBLIC SPEAKING PROFESSOR Work Phone: [facility] 01-09-2023 14:00-0400 Body mass index (BMI) [Ratio] 15.81 kg/m2 Diego Ba GATE SHEAR OPERATOR-PUBLIC SPEAKING PROFESSOR Work Phone: [facility] 01-09-2023 14:00-0400 Body temperature 96.49 [degF] Diego Ba GATE SHEAR OPERATOR-PUBLIC SPEAKING PROFESSOR Work Phone: [facility] 01-09-2023 14:00-0400 Body weight 43.09 kg Diego Ba GATE SHEAR OPERATOR-PUBLIC SPEAKING PROFESSOR Work Phone: [facility] 01-09-2023 14:00-0400 Heart rate 91 /min Diego Ba GATE SHEAR OPERATOR-PUBLIC SPEAKING PROFESSOR Work Phone: [facility] 01-09-2023 14:00-0400 SaO2% (BldA) [Mass fraction] 95 % Diego Ba GATE SHEAR OPERATOR-PUBLIC SPEAKING PROFESSOR Work Phone: [facility] 12-28-2022 10:00-0400 Body height 162.6 cm Yulia Medinacaid GATE SHEAR OPERATOR-PUBLIC SPEAKING PROFESSOR Work Phone: [facility] 12-28-2022 10:00-0400 Body mass index (BMI) [Ratio] 16 kg/m2 Yulia Medinacaid GATE SHEAR OPERATOR-PUBLIC SPEAKING PROFESSOR Work Phone: [facility] 12-28-2022 10:00-0400 Body temperature 97 [degF] Yulia Medinacaid GATE SHEAR OPERATOR-PUBLIC SPEAKING PROFESSOR Work Phone: [facility] 12-28-2022 10:00-0400 Body weight 42.27 kg Yulia Pisano GATE SHEAR OPERATOR-PUBLIC SPEAKING PROFESSOR Work Phone: [facility] 12-28-2022 10:00-0400 Diastolic blood pressure 79 mm[Hg] Yulia Pisano GATE SHEAR OPERATOR-PUBLIC SPEAKING PROFESSOR Work Phone: [facility] 12-28-2022 10:00-0400 Heart rate 90 /min Yulia Pisano APRN-PUBLIC SPEAKING PROFESSOR Work Phone: [facility] 12-28-2022 10:00-0400 Respiratory rate 16 /min Yulia Pisano GATE SHEAR OPERATOR-PUBLIC SPEAKING PROFESSOR Work Phone: [facility] 12-28-2022 10:00-0400 SaO2% (BldA) [Mass fraction] 97 % Yulia Pisano APRN-PUBLIC SPEAKING PROFESSOR Work Phone: [facility] 12-28-2022 10:00-0400 Systolic blood pressure 116 mm[Hg] Yulia Pisano GATE SHEAR OPERATOR-PUBLIC SPEAKING PROFESSOR Work Phone: [facility] 12-13-2022 07:34-0400 Body height 162.6 cm Shweta Stoner MD Work Phone: [facility] 12-13-2022 07:34-0400 Body mass index (BMI) [Ratio] 16.14 kg/m2 Shweta Stoner MD Work Phone: [facility] 12-13-2022 07:34-0400 Body weight 42.64 kg Shweta Stoner MD Work Phone: [facility] 11-21-2022 08:58-0400 Body height 162.6 cm Shweta Stoner MD Work Phone: [facility] 11-21-2022 08:58-0400 Body mass index (BMI) [Ratio] 16.17 kg/m2 Shweta Stoner MD Work Phone: [facility] 11-21-2022 08:58-0400 Body temperature 97.2 [degF] Shweta Stoner MD Work Phone: [facility] 11-21-2022 08:58-0400 Body weight 42.73 kg Shweta Stoner MD Work Phone: [facility] 11-21-2022 08:58-0400 Diastolic blood pressure 68 mm[Hg] Shweta Stoner MD Work Phone: [facility] 11-21-2022 08:58-0400 Heart rate 93 /min Shweta Stoner MD Work Phone: [facility] 11-21-2022 08:58-0400 Systolic blood pressure 139 mm[Hg] Shweta Stoner MD Work Phone: [facility] 11-07-2022 09:41-0400 Body height 158.8 cm Yulia Medinacaid GATE SHEAR OPERATOR-PUBLIC SPEAKING PROFESSOR Work Phone: [facility] 11-07-2022 09:41-0400 Body mass index (BMI) [Ratio] 17.31 kg/m2 Yulia Medinacaid GATE SHEAR OPERATOR-PUBLIC SPEAKING PROFESSOR Work Phone: [facility] 11-07-2022 09:41-0400 Body temperature 97.2 [degF] Yulia Medinacaid GATE SHEAR OPERATOR-PUBLIC SPEAKING PROFESSOR Work Phone: [facility] 11-07-2022 09:41-0400 Body weight 43.64 kg Yuliasumi MedinaCleves GATE SHEAR OPERATOR-PUBLIC SPEAKING PROFESSOR Work Phone: [facility] 11-07-2022 09:41-0400 Diastolic blood pressure 91 mm[Hg] Yulia Cleves GATE SHEAR OPERATOR-PUBLIC SPEAKING PROFESSOR Work Phone: [facility] 11-07-2022 09:41-0400 Heart rate 68 /min Yulia Pisano GATE SHEAR OPERATOR-PUBLIC SPEAKING PROFESSOR Work Phone: [facility] 11-07-2022 09:41-0400 Respiratory rate 16 /min Yulia Pisano GATE SHEAR OPERATOR-PUBLIC SPEAKING PROFESSOR Work Phone: [facility] 11-07-2022 09:41-0400 SaO2% (BldA) [Mass fraction] 96 % Yulia Pisano GATE SHEAR OPERATOR-PUBLIC SPEAKING PROFESSOR Work Phone: [facility] 11-07-2022 09:41-0400 Systolic blood pressure 138 mm[Hg] Yulia Pisano GATE SHEAR OPERATOR-PUBLIC SPEAKING PROFESSOR Work Phone: [facility] 11-22-2021 15:39-0400 SaO2% (BldA) [Mass fraction] 89 % Tex Palma MD Work Phone: [facility] 11-22-2021 14:52-0400 Body temperature 98.2 [degF] Tex Palma MD Work Phone: [facility] 11-22-2021 14:52-0400 Diastolic blood pressure 55 mm[Hg] Tex Palma MD Work Phone: [facility] 11-22-2021 14:52-0400 Heart rate 112 /min Tex Palma MD Work Phone: [facility] 11-22-2021 14:52-0400 Respiratory rate 16 /min Tex Palma MD Work Phone: [facility] 11-22-2021 14:52-0400 Systolic blood pressure 111 mm[Hg] Tex Palma MD Work Phone: [facility] 11-21-2021 18:00-0400 Body mass index (BMI) [Ratio] 16.68 kg/m2 Tex Palma MD Work Phone: [facility] 11-21-2021 10:55-0400 SaO2% (BldA) [Mass fraction] 91 % Yulia Pisano APRN-VEE Work Phone: [facility] Comment on above: On 2L NC after breathing treatment 11-21-2021 10:13-0400 Body height 162.6 cm Yulia Pisano APRN-PUBLIC SPEAKING PROFESSOR Work Phone: [facility] 11-21-2021 10:13-0400 Body mass index (BMI) [Ratio] 16.67 kg/m2 Yulia Pisano APRN-PUBLIC SPEAKING PROFESSOR Work Phone: [facility] 11-21-2021 10:130400 Body temperature 98.2 [degF] Yulia Pisano APRN-PUBLIC SPEAKING PROFESSOR Work Phone: [facility] 11-21-2021 10:13-0400 Body weight 44.09 kg Yulia Pisano APRN-VEE Work Phone: [facility] 11-21-2021 10:13-0400 Diastolic blood pressure 81 mm[Hg] Yulia Pisano APRN-VEE Work Phone: [facility] 11-21-2021 10:13-0400 Heart rate 66 /min Yulia Pisano APRN-VEE Work Phone: [facility] 11-21-2021 10:13-0400 Respiratory rate 20 /min Yulia Pisano APRN-PUBLIC SPEAKING PROFESSOR Work Phone: [facility] 11-21-2021 10:13-0400 Systolic blood pressure 148 mm[Hg] Yulia Pisano APRN-PUBLIC SPEAKING PROFESSOR Work Phone: [facility] 11-11-2021 12:27-0400 Body temperature 97.9 [degF] Shine Ortiz MD Work Phone: [facility] 11-11-2021 12:27-0400 Diastolic blood pressure 91 mm[Hg] Shine Ortiz MD Work Phone: [facility] 11-11-2021 12:27-0400 Heart rate 111 /min Shine Ortiz MD Work Phone: 0(753)[phone] [place] [address] 11-11-2021 12:27-0400 Respiratory rate 16 /min Shine Ortiz MD Work Phone: 9(633)[phone] [address] 11-11-2021 12:27-0400 SaO2% (BldA) [Mass fraction] 93 % Shine Ortiz MD Work Phone: 4(974)[phone] [place] [address] 11-11-2021 12:27-0400 Systolic blood pressure 125 mm[Hg] Shine Ortiz MD Work Phone: 3(829)[phone] [place] [address] 11-10-2021 23:04-0400 Body height 162.6 cm Shine Ortiz MD Work Phone: 3(464)[phone] [place] [address] 11-10-2021 23:04-0400 Body mass index (BMI) [Ratio] 17 kg/m2 Shine Ortiz MD Work Phone: [facility] 11-10-2021 23:04-0400 Body weight 44.95 kg Shine Ortiz MD Work Phone: [facility] 10-11-2021 10:52-0400 Body height 162.6 cm Meaghan Reyes GATE SHEAR OPERATOR-PUBLIC SPEAKING PROFESSOR Work Phone: [facility] 10-11-2021 10:52-0400 Body mass index (BMI) [Ratio] 16.75 kg/m2 Crystal Joshuaambe GATE SHEAR OPERATOR-PUBLIC SPEAKING PROFESSOR Work Phone: [facility] 10-11-2021 10:52-0400 Body temperature 97.3 [degF] Crystal Liliane GATE SHEAR OPERATOR-PUBLIC SPEAKING PROFESSOR Work Phone: [facility] 10-11-2021 10:52-0400 Body weight 44.27 kg Meaghan Chambers GATE SHEAR OPERATOR-PUBLIC SPEAKING PROFESSOR Work Phone: [facility] 10-11-2021 10:52-0400 Diastolic blood pressure 60 mm[Hg] Meaghan Chambers GATE SHEAR OPERATOR-PUBLIC SPEAKING PROFESSOR Work Phone: [facility] 10-11-2021 10:52-0400 Heart rate 75 /min Meaghan Chambers GATE SHEAR OPERATOR-PUBLIC SPEAKING PROFESSOR Work Phone: [facility] 10-11-2021 10:52-0400 SaO2% (BldA) [Mass fraction] 97 % [facility] SHEAR OPERATOR-PUBLIC SPEAKING PROFESSOR Work Phone: [facility] 10-11-2021 10:52-0400 Systolic blood pressure 100 mm[Hg] [facility] GATE SHEAR OPERATOR-PUBLIC SPEAKING PROFESSOR Work Phone: [facility] Encounters Encounter Date Encounter Type Care Provider Facility Start: 05-01-2025 ambulatory [facility] Facility: [facility] Start: 04-28-2025 ambulatory SELF SELF Facility:[facility] Start: 04-22-2025 ambulatory [facility] Facility: [facility] Start: 04-22-2025 ambulatory [facility] Facility: [facility] Start: 04-20-2025 End: 04-20-[address] Roddy Garay [facility] Work Phone: Start: 04-20-2025 End: 04-20-2025 ambulatory CHERI CINDY Work Phone: -[facility] Start: 04-15-2025 Non-patient / Non-visit Hankmarianneria Posadas [facility] Work Phone: Start: 04-15-2025 ambulatory Nai Menjivar Facility :[facility] Start: 04-14-2025 End: 04-15-2025 Office outpatient new 45 minutes Alma Baptiste MD Work Phone: Division of Thoracic Surgery at [facility] Comment on above: Adenocarcinoma of ri ght lung (Primary Dx) Start: 04-14-2025 ambulatory [facility] Start: 04-10-2025 End: 04-10-2025 Office outpatient new 45 minutes Zain Khanna MD, PhD Work Phone: Department of Radiation Oncology Comment on above: Adenocarcinoma of ri ght lung (Primary Dx) Start: 04-10-2025 ambulatory ZAIN KHANNA Facility :[facility] Start: 04-07-2025 ambulatory YULIA PISANO Facilit y:[facility] Start: 04-02-2025 ambulatory SHWETHA ALLEN Facilit y:[facility] Start: 04-02-2025 End: 04-02-2025 Subsequent hospital visit by physician Shwetha SMALL Work Phone: Imaging [facility] Comment on above: Arrived Start: 04-02-2025 ambulatory SHWETHA ALLEN Facilit y:[facility] Start: 04-02-2025 End: 04-02-2025 Subsequent hospital visit by physician Shwetha SMALL Work Phone: Imaging [facility] Comment on above: Arrived Start: 03-13-2025 End: 03-17-2025 Office consultation new/estab patient 60 min Kinga Carpenter MD Work Phone: [facility] [place] Comment on above: Pre-operative cardio vascular examination (Primary Dx); Coronary artery ectasia; Coronary artery calcification Start: 03-13-2025 End: 03-17-2025 Patient encounter status Kinga Carpenter MD Work Phone: [facility] Work Phone: Start: 03-13-2025 ambulatory SHWETHACHRISSY VILLALPANDONU Facilit y:[facility] Start: 03-11-2025 ambulatory YULIA PISANO Facilit y:[facility] Start: 03-11-2025 End: 03-11-2025 Subsequent hospital visit by physician Yulia Pisano GATE SHEAR OPERATOR-PUBLIC SPEAKING PROFESSOR Work Phone: [facility] Mammography at [facility] Comment on above: Arrived Start: 03-10-2025 ambulatory YULIA PISANO Facilit y:[facility] Start: 03-06-2025 ambulatory SAVI TORRES Facil ity:[facility] Start: 03-06-2025 ambulatory SAVI R MELISSA Facil ity:[facility] Start: 03-06-2025 End: 03-06-2025 Subsequent hospital visit by physician Savi Torres PA-C Work Phone: [facility] [place] Comment on above: Arrived Start: 02-11-2025 ambulatory BRAN CURRIE Facility:[facility] Start: 02-11-2025 End: 02-11-2025 Subsequent hospital visit by physician Bran Currie MD Work Phone: Imaging [facility] Comment on above: Arrived Start: 02-06-2025 End: 02-06-2025 Office outpatient visit 25 minutes Shwetha SMALL Work Phone: Division of Pulmonary Diseases at [facility] Comment on above: Pulmonary nodule (Pr imary Dx); Nicotine dependence, uncomplicated, unspecified nicotine product type; Chronic obstructive pulmonary disease, unspecified COPD type Start: 02-06-2025 ambulatory SHWETHA ALLEN Facilit y:[facility] Start: 01-28-2025 End: 01-28-2025 Office outpatient visit 25 minutes Bran Currie MD Work Phone: [facility] Care [facility] Comment on above: Pulmonary nodule (Pr imary Dx); Panlobular emphysema; Personal history of tobacco use, presenting hazards to health Start: 01-28-2025 ambulatory YULIA PISANO Facilit y:[facility] Start: 01-22-2025 End: 01-22-2025 Office outpatient visit 25 minutes Yulia Pisano GATE SHEAR OPERATOR-PUBLIC SPEAKING PROFESSOR Work Phone: [facility] Comment on above: Encounter for annual physical exam (Primary Dx); Screening for depression; Panlobular emphysema; Current smoker; Screening for colon cancer; Screening mammogram for breast cancer; Screening for hyperlipidemia; Vitamin D deficiency; Nausea; Healthcare maintenance Start: 01-22-2025 End: 01-22-2025 Patient encounter procedure Yulia Pisano GATE SHEAR OPERATOR-PUBLIC SPEAKING PROFESSOR Work Phone: [facility] Start: 01-22-2025 End: 01-22-2025 Patient encounter status Yulia Pisano GATE SHEAR OPERATOR-PUBLIC SPEAKING PROFESSOR Work Phone: [facility] Start: 01-22-2025 ambulatory YULIA PISANO Facilit y:[facility] Start: 01-22-2025 Encounter for genera l adult medical examination without abnormal findings YULIA PISANO Facility:[facility] Start: 10-28-2024 ambulatory YULIA PISANO Facilit y:[facility] Start: 03-16-2024 End: 03-16-2024 ambulatory NONE~[id number] NONE NONE NONE Facility:[facility] Start: 03-15-2024 End: 03-15-2024 ambulatory NONE~[id number] NONE NONE NONE Facility:[facility] Start: 03-01-2024 End: 03-02-2024 ambulatory NONE~[id number] NONE NONE NONE Facility:[facility] Start: 02-04-2024 End: 02-04-2024 Office outpatient new 30 minutes Brad Whitaker MD Work Phone: Department of Orthopaedics Comment on above: Trigger finger of le ft thumb (Primary Dx) Start: 01-23-2024 End: 01-23-2024 Subsequent hospital visit by physician Kamini SMALL Work Phone: [facility] [place] Comment on above: Arrived Start: 01-08-2024 End: 01-15-2024 Office outpatient visit 15 minutes Kamini SMALL Work Phone: [facility] [place] Comment on above: Nodule of right lung (Primary Dx) Start: 01-08-2024 End: 01-08-2024 Emergency department patient visit Jyoti Gavin MD Work Phone: [facility] Emergency Department Start: 01-08-2024 End: 01-08-2024 Subsequent hospital visit by physician Kamini SMALL Work Phone: [facility] Comment on above: Arrived Start: 10-29-2023 End: 10-29-2023 Office outpatient visit 15 minutes Yulia Pisano Roost Work Phone: [facility] Comment on above: Encounter for annual physical exam (Primary Dx); Screening for depression; Current smoker; Mixed hyperlipidemia; Vitamin D deficiency; Underweight; Hypercalcemia; Hyperglycemia Start: 10-29-2023 End: 10-29-2023 Patient encounter procedure Yulia Pisano GATE SHEAR OPERATORmyCampusTutors Work Phone: [facility] Work Phone: Start: 05-29-2023 End: 05-29-2023 Office outpatient visit 15 minutes Yulia Pisano Roost Work Phone: [facility] Comment on above: Cervicogenic headach e (Primary Dx); Panlobular emphysema; Chronic pain of right heel; Current smoker; Mixed hyperlipidemia; Need for vaccination Start: 04-30-2023 End: 04-30-2023 Office outpatient new 30 minutes Tiny Jeffers OD Work Phone: [facility] Comment on above: Hordeolum externum o f left lower eyelid (Primary Dx); Nuclear senile cataract of both eyes; History of eye injury Start: 04-30-2023 End: 04-30-2023 Patient encounter procedure Desire Forbes MD Work Phone: [facility] Comment on above: ERRONEOUS ENCOUNTER- -DISREGARD Start: 03-06-2023 End: 03-06-2023 Office consultation new/estab patient 60 min Said A Atway DPM Work Phone: [facility] [place] Comment on above: Callus of foot (Prim marija Dx) Start: 03-06-2023 End: 03-06-2023 Subsequent hospital visit by physician Kinsey Cason GATE SHEAR OPERATOR-PUBLIC SPEAKING PROFESSOR Work Phone: Imaging [facility] Comment on above: Arrived Start: 03-06-2023 End: 03-06-2023 Patient encounter procedure Kinsey Cason GATE SHEAR OPERATOR-PUBLIC SPEAKING PROFESSOR Work Phone: [facility] Comment on above: Personal history of tobacco use, presenting hazards to health (Primary Dx); Screening for lung cancer Start: 03-01-2023 Telephone encounter Evelyn Allred [facility] [place] Comment on above: Insurance Start: 02-21-2023 End: 02-21-2023 Patient encounter procedure Jonn Marley MD Work Phone: Spine Care [facility]patient [facility] Comment on above: DDD (degenerative di sc disease), cervical (Primary Dx); Cervical radiculopathy Start: 02-21-2023 End: 02-21-2023 Subsequent hospital visit by physician Jonn Marley MD Work Phone: Imaging [facility]patient [facility] Comment on above: Arrived Start: 01-25-2023 End: 01-25-2023 Subsequent hospital visit by physician Ana Cuevas GATE SHEAR OPERATOR-PUBLIC SPEAKING PROFESSOR Work Phone: Imaging [facility] Comment on above: Arrived Start: 01-09-2023 End: 01-09-2023 Office outpatient visit 25 minutes Kamini SMALL Work Phone: [facility] [place] Comment on above: Panlobular emphysema ; Lung nodule Start: 01-09-2023 End: 01-09-2023 Office outpatient visit 15 minutes Diego Dao Ba GATE SHEAR OPERATOR-PUBLIC SPEAKING PROFESSOR Work Phone: Spine Care [facility]patient [facility] Comment on above: DDD (degenerative di sc disease), cervical (Primary Dx); Cervical radiculopathy Start: 01-09-2023 End: 01-09-2023 Subsequent hospital visit by physician Yulia Pisano GATE SHEAR OPERATOR-PUBLIC SPEAKING PROFESSOR Work Phone: Imaging [facility]patient [facility] Comment on above: Arrived Start: 01-09-2023 End: 01-09-2023 Subsequent hospital visit by physician Yulia Pisano GATE SHEAR OPERATOR-PUBLIC SPEAKING PROFESSOR Work Phone: V[facility] Surgery [facility] [place] Start: 01-04-2023 End: 01-04-2023 Subsequent hospital visit by physician Ana Cuevas APRN-PUBLIC SPEAKING PROFESSOR Work Phone: Department of Radiology Comment on above: Arrived Start: 12-28-2022 End: 12-28-2022 Subsequent hospital visit by physician Yulia Pisano APRN-PUBLIC SPEAKING PROFESSOR Work Phone: Imaging [facility]patient [facility] Comment on above: Arrived Start: 12-28-2022 End: 01-04-2023 Office outpatient visit 15 minutes Yulia Pisano APRN-PUBLIC SPEAKING PROFESSOR Work Phone: [facility] Comment on above: Cervicogenic headach e (Primary Dx); Right foot pain; Jey's deformity of right heel; History of chondrosarcoma Start: 12-13-2022 End: 12-13-2022 Subsequent hospital visit by physician Shweta Stoner MD Work Phone: [facility] Comment on above: Arrived Start: 11-21-2022 End: 11-21-2022 Office outpatient new 45 minutes Shweta Stoner MD Work Phone: [facility] [place] Comment on above: Cervicogenic headach e (Primary Dx); Headache, chronic daily Start: 11-07-2022 End: 11-07-2022 Office outpatient visit 25 minutes Yulia Pisano APRN-PUBLIC SPEAKING PROFESSOR Work Phone: [facility] Comment on above: Encounter for annual physical exam (Primary Dx); Screening for depression; Encounter for screening mammogram for malignant neoplasm of breast; Screening for colon cancer; Cervicogenic headache; Panlobular emphysema; Vitamin D deficiency; Current smoker; Mixed hyperlipidemia Start: 11-07-2022 End: 11-07-2022 Patient encounter procedure Yulia Pisano APRN-PUBLIC SPEAKING PROFESSOR Work Phone: [facility] Start: 02-22-2022 End: 02-22-2022 Subsequent hospital visit by physician Kamini SMALL Work Phone: Imaging [facility] Comment on above: Arrived Start: 01-17-2022 End: 01-17-2022 Subsequent hospital visit by physician Kamini SMALL Work Phone: [facility] Comment on above: Arrived Start: 11-21-2021 End: 11-22-2021 Emergency department patient visit Tex Palma MD Work Phone: [email or web address] Comment on above: Hypoxia Start: 11-21-2021 End: 11-21-2021 Office outpatient visit 15 minutes Yulia Pisano GATE SHEAR OPERATOR-PUBLIC SPEAKING PROFESSOR Work Phone: [facility] Comment on above: COPD with acute exac erbation (Primary Dx) Start: 11-09-2021 End: 11-11-2021 Evaluation and management of inpatient Shine Ortiz MD Work Phone: [email or web address] Comment on above: COPD exacerbation Start: 10-11-2021 End: 10-11-2021 Office outpatient visit 25 minutes Crystal Reyes GATE SHEAR OPERATOR-PUBLIC SPEAKING PROFESSOR Work Phone: Rheumatology Outpatient Care [facility] Comment on above: Rheumatoid factor po sitive (Primary Dx) Start: 06-21-2020 Patient encounter status Cryst al Reyes GATE SHEAR OPERATOR-PUBLIC SPEAKING PROFESSOR Work Phone: [facility] Start: 06-13-2018 End: 06-13-2018 Patient encounter procedure Kamini Allen Work Phone: [facility] Comment on above: Arrived Start: 08-10-2017 End: 08-10-2017 Ambulatory Tex Roldan Facility:[facility] Procedures Date Procedure Procedure Detail Performing Clinician Start: 04-28-2025 Follow-up visit Follow-up BJORN GREEN Start: 04-02-2025 Bronchoscopy w/plmt fiducial markers single/mult Caroline Reynolds MD Work Phone: Start: 03-11-2025 Screening mammograph y bi 2-view breast inc cad Yulia Pisano GATE SHEAR OPERATOR-PUBLIC SPEAKING PROFESSOR Work Phone: Start: 03-06-2025 Spmtry w/vc expirato ry guadalupe w/wo mxml vol vntj Savi Oscar Melissa PA-C Work Phone: Start: 03-06-2025 Ct thorax w/o contra st material Savi R Melissa PA-C Work Phone: Start: 03-06-2025 Lipid 1996 panel - S kenneth or Plasma Savi Melissa PA-C Work Phone: Start: 02-11-[address] atten uation skull base mid-thigh Bran Currie MD Work Phone: Start: 02-11-2025 Glucose measurement, blood Bran Currie MD Work Phone: Start: 01-23-2024 Ct thorax w/o contra st material Kamini KLEINBS Work Phone: Start: 01-08-2024 End: 01-08-2024 Radex hand minimum 3 views Trung chino MD Work Phone: Start: 01-08-2024 Hypoxia altitude simulation test with supplemental oxygen titration Kamini Oscar Allen MBBS Work Phone: Start: 01-08-2024 Blood count hemoglobin Kamini R Tiffany MBBS Work Phone: Start: 01-08-2024 End: 01-08-2024 Spmtry w/vc expiratory guadalupe w/wo mxml vol vntj Kamini R Tiffany MBBS Work Phone: Start: 10-29-2023 CBC AND ELECTRONIC DIFF Yulia Pisano GATE SHEAR OPERATOR-PUBLIC SPEAKING PROFESSOR Work Phone: Start: 10-29-2023 Complete blood count with white cell differential, automated Yulia Pisano GATE SHEAR OPERATOR-PUBLIC SPEAKING PROFESSOR Work Phone: Start: 10-29-2023 Comprehensive metabo lic panel Yulia Pisano GATE SHEAR OPERATOR-PUBLIC SPEAKING PROFESSOR Work Phone: Start: 10-29-2023 Lipid panel Yulia gustafson GATE SHEAR OPERATOR-PUBLIC SPEAKING PROFESSOR Work Phone: Start: 10-29-2023 Lipid 1996 panel - S kenneth or Plasma Yulia Pisano GATE SHEAR OPERATOR-PUBLIC SPEAKING PROFESSOR Work Phone: Start: 02-21-2023 Njx dx/ther sbst int rlmnr crv/thrc w/img gdn Jonn Marley MD Work Phone: Start: 01-25-2023 Mri any jt lower ext rem w/o contrast matrl Ana Cuevas GATE SHEAR OPERATOR-PUBLIC SPEAKING PROFESSOR Work Phone: Start: 01-09-2023 Dup-scan lxtr art/ar tl bpgs uni/lmtd study Yulia Pisano GATE SHEAR OPERATOR-PUBLIC SPEAKING PROFESSOR Work Phone: Start: 01-04-2023 Radiologic exam ches t 2 views Ana Cuevas GATE SHEAR OPERATOR-PUBLIC SPEAKING PROFESSOR Work Phone: Start: 01-04-2023 Lipid 1996 panel - S kenneth or Plasma Yulia Pisano GATE SHEAR OPERATOR-PUBLIC SPEAKING PROFESSOR Work Phone: Start: 12-28-2022 End: 12-28-2022 Radex ankle complete minimum 3 views Yulia Pisano GATE SHEAR OPERATOR-PUBLIC SPEAKING PROFESSOR Work Phone: Start: 11-07-2022 Lipid 1996 panel - S kenneth or Plasma Yulia Pisano GATE SHEAR OPERATOR-PUBLIC SPEAKING PROFESSOR Work Phone: Start: 02-22-2022 Ct thorax w/o contra st material Kamini Ocsar Allen [facility] Work Phone: Start: 01-17-[address] atten uation skull base mid-thigh Kamini Oscar KLEIN Work Phone: Start: 01-17-2022 Glucose measurement, blood Kamini Oscar KLEIN Work Phone: Start: 11-22-2021 End: 11-22-2021 Unlisted pulmonary service/procedure Te Regalado MD Work Phone: Start: 11-22-2021 Assay of magnesium Gladis Mclean MD Work Phone: Start: 11-21-2021 Fibrin dgradj produc ts d-dimer quantitative Eren Mclean MD Work Phone: Start: 11-21-2021 Radiologic exam ches t single view Evelyn N Thorward GATE SHEAR OPERATOR-PUBLIC SPEAKING PROFESSOR Work Phone: Start: 11-21-2021 Assay of magnesium Gladis Mclean MD Work Phone: Start: 11-21-2021 CBC AND ELECTRONIC DIFF Evelyn N Thorward GATE SHEAR OPERATOR-PUBLIC SPEAKING PROFESSOR Work Phone: Start: 11-21-2021 Complete blood count with white cell differential, automated Evelyn N Thorward GATE SHEAR OPERATOR-PUBLIC SPEAKING PROFESSOR Work Phone: Start: 11-21-2021 GOLD TOP TUBE Evelyn N Thorward GATE SHEAR OPERATOR-PUBLIC SPEAKING PROFESSOR Work Phone: Start: 11-21-2021 LT BLUE TOP TUBE Jencarynf er N Thorward GATE SHEAR OPERATOR-PUBLIC SPEAKING PROFESSOR Work Phone: Start: 11-21-2021 MINT GREEN TOP TUBE Dianne nifer N Thorward GATE SHEAR OPERATOR-PUBLIC SPEAKING PROFESSOR Work Phone: Start: 11-11-2021 Procalcitonin (pct) Kim ya Queenie DO Work Phone: Start: 11-10-2021 SARS-CoV-2 (COVID-19 ) RNA [Presence] in Unspecified specimen by ASHLEY with probe detection Ary Valdez GATE SHEAR OPERATOR-PUBLIC SPEAKING PROFESSOR Work Phone: Start: 11-10-2021 Fibrin dgradj produc ts d-dimer quantitative Ced Tate MD Work Phone: Start: 11-09-2021 Radiologic exam ches t 2 views Juan Wilkins MD Work Phone: Start: 11-09-2021 Assay of magnesium Timmy Wilkins MD Work Phone: Start: 11-09-2021 CBC AND ELECTRONIC DIFF Juan Wilkins MD Work Phone: Start: 11-09-2021 Complete blood count with white cell differential, automated Juan Wilkins MD Work Phone: Start: 11-09-2021 GOLD TOP TUBE Juan Wilkins MD Work Phone: Start: 11-09-2021 LAVENDER TOP TUBE Federico Wilkins MD Work Phone: Start: 11-09-2021 LT BLUE TOP TUBE Juan Wilkins MD Work Phone: Start: 11-09-2021 MINT GREEN TOP TUBE Garland Wilkins MD Work Phone: Start: 11-09-2021 RAINBOW DRAW Juan patel MD Work Phone: Start: 11-09-2021 Ecg routine ecg w/le ast 12 lds trcg only w/o i&r Juan Wilkins MD Work Phone: Start: 10-11-2021 Creatine kinase total C rystgrace Losambe GATE SHEAR OPERATOR-PUBLIC SPEAKING PROFESSOR Work Phone: Start: 09-22-2021 Lipid 1996 panel - S kenneth or Plasma Meaghan Chambers GATE SHEAR OPERATOR-PUBLIC SPEAKING PROFESSOR Work Phone: Start: 06-13-2018 End: 06-13-2018 Measurement of respiratory function Kamini R Tiffany Work Phone: Start: 06-13-2018 End: 06-13-2018 Blood count hemoglobin Kamini R Tiffany Work Phone: Start: 05-03-2018 Colonoscopy Crystal Sarahy salcedobe GATE SHEAR OPERATOR-PUBLIC SPEAKING PROFESSOR Work Phone: Start: 07-11-2017 Lipid 1996 panel - S kenneth or Plasma Kamini Tiffany Plan of Treatment Date Care Activity Detail Author Start: 03-06-2030 Lipid panel LIPID SCREENING [facility] Start: 10-28-2028 Lipid panel LIPID SCREENING [facility] Start: 01-05-2028 Lipid panel LIPID SCREENING [facility] Start: 11-08-2027 Lipid panel LIPID SCREENING [facility] Start: 09-22-2026 Fasting lipid profile LIPID SCREENIN G [facility] Start: 2026 Pneumococcal vaccination PNEUMOCOCCAL VACCINE SERIES (3 of 3 - PCV20 or PCV21) [facility] Start: 2026 PNEUMOCOCCAL VACCINE SERIES (2 of 2 - PPSV23) PNEUMOCOCCAL VACCINE SERIES (2 of 2 - PPSV23) [facility] Start: 2026 PNEUMOCOCCAL VACCINE SERIES (3 - PPSV23 if available, else PCV20) PNEUMOCOCCAL VACCINE SERIES (3 - PPSV23 if available, else PCV20) [facility] Start: 2026 PNEUMOCOCCAL VACCINE SERIES (3 - PPSV23 or PCV20) PNEUMOCOCCAL VACCINE SERIES (3 - PPSV23 or PCV20) [facility] Start: 2026 PNEUMOCOCCAL VACCINE SERIES (3 of 3 - PPSV23 or PCV20) PNEUMOCOCCAL VACCINE SERIES (3 of 3 - PPSV23 or PCV20) [facility] Start: 03-11-2026 Screening for malign ant neoplasm of breast MAMMOGRAM SCREENING DISCUSSION [facility] Start: 01-28-2026 End: 01-28-2026 Patient encounter procedure [facility] [place] [facility] Start: 01-22-2026 PREVENTATIVE HEALTH VISIT PREVENTATIVE HEALTH VISIT [facility] Start: 10-27-2025 End: 10-27-2025 Telemedicine consultation with patient 10/27/2025 10:00 AM EDT Telemedicine [facility]rology Out[facility] Care [address] [place] [address] Naya Galicia, GATE SHEAR OPERATOR-PUBLIC SPEAKING PROFESSOR [address] [facility] [address] [place] [address] [facility] [place] Start: 05-07-2025 End: 05-07-2025 Patient encounter procedure 05/07/2025 7:30 AM EDT Appointment [facility] Endoscopy Department [address] [place] [id number] Evelyn Stewart MD [address] [place] [id number] [facility] Start: 04-28-2025 End: 04-28-2025 Telemedicine consultation with patient [facility] [place] Start: 04-16-2025 End: 04-16-2025 Patient encounter procedure 04/16/2025 7:30 AM EDT Appointment [facility] Endoscopy Department [address] [place] [address] Steven Best MD [address] [place] [address] [facility] Start: 04-14-2025 End: 04-14-2025 Patient encounter procedure Division of Thoracic Surgery at [facility] Start: 04-07-2025 End: 04-07-2025 Telemedicine consultation with patient 04/07/2025 8:40 AM EDT Telemedicine Division of Pulmonary Diseases at [facility] [address] [address] Shwetha Allen MBBS [address] [address] Division of Pulmonary Diseases at [facility] Start: 04-05-[address] [facility] Start: 04-02-2025 End: 04-02-2025 Patient encounter procedure 04/02/2025 1:10 PM EDT Appointment [facility] [address] [place] [address] Shwetha Allen MBBS [address] [facility] [address] [place] [address] [facility] Start: 03-16-2025 COVID-19 VACCINE ( season) COVID-19 VACCINE () [facility] Start: 03-16-2025 Influenza vaccination INFLUENZA VACC INE (#1) U [facility] Start: 03-13-2025 End: 03-13-2025 Patient encounter procedure 03/13/2025 2:00 PM EDT Office Visit [facility] [place] [address] [place], [place] [id number] Kinga Carpenter MD [address] [place], [place] [id number] [facility] [place] Start: 03-13-2025 End: 03-13-2025 Telemedicine consultation with patient 03/13/2025 1:40 PM EDT Telemedicine Division of Pulmonary Diseases at [facility] [address] [place] [address] Shwetha Allen MBBS [address] [place] [id number] Division of Pulmonary Diseases at [facility] Start: 03-11-2025 End: 03-11-2025 Patient encounter procedure 03/11/2025 4:20 PM EDT Appointment [facility] Mammography at [facility] Breast [facility] [address] [place] [id number] [facility] Mammography at [facility] Start: 03-10-2025 End: 03-10-2025 Telemedicine consultation with patient 03/10/2025 10:00 AM EDT Telemedicine Division of Pulmonary Diseases at [facility] [address] [place] [address] Shwetha Allen MBBS [address] [place] [address] Division of Pulmonary Diseases at [facility] Start: 03-06-2025 End: 03-06-2025 Patient encounter procedure [facility] [place] Start: 02-11-2025 End: 02-11-2025 Patient encounter procedure 02/11/2025 8:00 AM EDT Appointment Imaging [facility] [address] [place] [phone] Bran Currie MD [address] [place] [phone] Imaging [facility] Start: 02-06-2025 End: 02-06-2026 CT Chest WO contrast CT CHEST WITHOUT CONTRAST Imaging STAT Pulmonary nodule Expected: 02/06/2025, Expires: 02/06/2026 [facility] Comment on above: Expected: 02/06/2025 , Expires: 02/06/2026 Start: 02-06-2025 End: 02-06-2026 Measurement of respiratory function PFT STANDARD PFT Routine Nicotine dependence, uncomplicated, unspecified nicotine product type Expected: 02/06/2025, Expires: 02/06/2026 [facility] Comment on above: Expected: 02/06/2025 , Expires: 02/06/2026 Start: 02-06-2025 End: 02-06-2025 Patient encounter procedure 02/06/2025 1:20 PM EDT Office Visit Division of Pulmonary Diseases at [facility] [address] [place] [address] Shwetha Allen MBBS [address] [place] [address] Division of Pulmonary Diseases at [facility] Start: 01-28-2025 End: 01-28-2025 Patient encounter procedure 01/28/2025 3:00 PM EDT Office Visit [facility] [address] [place] [address] [address]avesh [address] [place] [phone] Bran Currie MD [address] [place] [address] [facility] Start: 01-28-2025 End: 01-28-2026 PT Skull base to mid-thigh NUC PET HEAD TO THIGH Imaging STAT Pulmonary nodule Expected: 01/28/2025, Expires: 01/28/2026 [facility] Comment on above: Expected: 01/28/2025 , Expires: 01/28/2026 Start: 01-22-2025 End: 01-22-2026 Complete blood count with white cell differential, automated CBC, EDIF, PLATELET Lab Routine Panlobular emphysema Expected: 01/22/2025, Expires: 01/22/2026 [facility] Comment on above: Expected: 01/22/2025 , Expires: 01/22/2026 Start: 01-22-2025 End: 01-22-2026 Comprehensive metabolic 2000 panel - Serum or Plasma COMPREHENSIVE METABOLIC PANEL Lab Routine Panlobular emphysema Expected: 01/22/2025, Expires: 01/22/2026 [facility] Comment on above: Expected: 01/22/2025 , Expires: 01/22/2026 Start: 01-22-2025 End: 01-22-2026 LIPID PANEL W CALCULATED LDL LIPID PANEL W CALCULATED LDL Lab Routine Screening for hyperlipidemia Expected: 01/22/2025, Expires: 01/22/2026 [facility] Comment on above: Expected: 01/22/2025 , Expires: 01/22/2026 Start: 01-22-2025 End: 01-22-2026 MG Breast - bilateral Screening MAMMO SCREENING WITH TERI BILATERAL Imaging Routine Screening mammogram for breast cancer Expected: 01/22/2025, Expires: 01/22/2026 [facility] Comment on above: Expected: 01/22/2025 , Expires: 01/22/2026 Start: 01-22-2025 End: 01-22-2026 Screening colonoscopy SCREENING COLONOSCOPY GI/Bronch Routine Screening for colon cancer Expected: 01/22/2025, Expires: 01/22/2026 [facility] Comment on above: Expected: 01/22/2025 , Expires: 01/22/2026 Start: 01-22-2025 End: 01-22-2026 Thyrotropin [Units/volume] in Serum or Plasma TSH Lab Routine Nausea Expected: 01/22/2025, Expires: 01/22/2026 [facility] Comment on above: Expected: 01/22/2025 , Expires: 01/22/2026 Start: 01-22-2025 End: 01-22-2026 Thyroxine (T4) free [Mass/volume] in Serum or Plasma T4 FREE Lab Routine Nausea Expected: 01/22/2025, Expires: 01/22/2026 [facility] Comment on above: Expected: 01/22/2025 , Expires: 01/22/2026 Start: 01-22-2025 End: 01-22-2026 VITAMIN D (25-HYDROXY,TOTAL) VITAMIN D (25-HYDROXY,TOTAL) Lab Routine Vitamin D deficiency Expected: 01/22/2025, Expires: 01/22/2026 [facility] Comment on above: Expected: 01/22/2025 , Expires: 01/22/2026 Start: 10-29-2024 End: 10-29-2024 Patient encounter procedure 10/29/2024 9:40 AM EDT Office Visit [address] [phone] Yulia Pisano, GATE SHEAR OPERATOR-PUBLIC SPEAKING PROFESSOR [address] [place], [place] [phone] [facility] Start: 10-28-2024 PREVENTATIVE HEALTH VISIT PREVENTATIVE HEALTH VISIT [facility] Start: 06-17-2024 End: 06-17-2024 Patient encounter procedure 06/17/2024 1:30 PM EST Office Visit [facility] [place] [address] [place] [phone] Kamini Allen MBBS [address] [place] [phone] [facility] [place] Start: 06-11-2024 End: 06-11-2024 Patient encounter procedure 06/11/2024 8:15 AM EST Appointment Imaging [facility] [address] 1st [place] [phone] Kamini Allen MBBS [address] 3rd [place] [phone] Imaging [facility] Start: 05-02-2024 End: 05-02-2024 Patient encounter procedure 05/02/2024 11:00 AM EDT Office Visit [facility] [place] [address] [facility] [address] [place] [address] Shaina Houston MD [address] [facility] [address] [place] [address] [facility] [place] Start: 04-29-2024 End: 04-29-2024 Telemedicine consultation with patient 04/29/2024 10:00 AM EDT Telemedicine [facility] [place] [address] [facility] [address] [place] [address] Naya Galicia, GATE SHEAR OPERATOR-PUBLIC SPEAKING PROFESSOR [address] 7th [place] [address] [facility] [place] Start: 03-16-2024 COVID-19 VACCINE ( season) COVID-19 VACCINE ( season) [facility] Start: 03-16-2024 Influenza vaccination INFLUENZA VACC INE (#1) [facility] Start: 03-13-2024 End: 04-13-[address] LUNG CANCER SCREENING Imaging Routine Screening for lung cancer Personal history of tobacco use, presenting hazards to health Expected: 03/13/2024, Expires: 04/13/2024 [facility] Comment on above: Expected: 03/13/2024 , Expires: 04/13/2024 Start: 02-04-2024 End: 02-04-2024 Patient encounter procedure 02/04/2024 10:30 AM EDT Office Visit Department of Orthopaedics [address] 5th [place] [address] Brad Whitaker MD [address] [place] [address] Department of Orthopaedics Start: 01-10-2024 Screening for malign ant neoplasm of breast MAMMOGRAM SCREENING DISCUSSION [facility] Start: 01-08-2024 End: 01-07-[address]25 CT Chest WO contrast CT CHEST WITHOUT CONTRAST Imaging Routine Nodule of right lung Expected: 01/08/2024, Expires: 01/07/2025 [facility] Comment on above: Expected: 01/08/2024 , Expires: 01/07/2025 Start: 01-08-2024 End: 01-08-2024 Patient encounter procedure Pulmonary Testing [facility] Start: 11-20-2023 End: 11-20-2023 Telemedicine consultation with patient 11/20/2023 10:00 AM EDT Telemedicine [facility] [place] [address] [facility] [address] [place] [address] Naya Galicia, GATE SHEAR OPERATOR-PUBLIC SPEAKING PROFESSOR [address] 7th [place] [address] [facility] [place] Start: 11-08-2023 PREVENTATIVE HEALTH VISIT PREVENTATIVE HEALTH VISIT [facility] Start: 10-30-2023 End: 10-29-2024 Hemoglobin A1c/Hemoglobin.total in Blood HEMOGLOBIN A1C Lab Routine Hyperglycemia Expected: 10/30/2023, Expires: 10/29/2024 [facility] Comment on above: Expected: 10/30/2023 , Expires: 10/29/2024 Start: 10-30-2023 End: 10-29-2024 PTH INTACT PTH INTACT Lab Routine Hypercalcemia Expected: 10/30/2023, Expires: 10/29/2024 [facility] Comment on above: Expected: 10/30/2023 , Expires: 10/29/2024 Start: 10-29-2023 End: 10-29-2023 Patient encounter procedure 10/29/2023 9:00 AM EDT Office Visit [facility] [address] [facility] [address]avesh [address] [place] [phone] Yulia Pisano, GATE SHEAR OPERATOR-PUBLIC SPEAKING PROFESSOR [id number] [place] [address] [facility] Start: 07-17-2023 End: 07-17-2023 Patient encounter procedure 07/17/2023 12:00 PM EST Office Visit [facility] [address] [place] [address] Tiny Jeffers, OD [address] [place] [address] [facility] Start: 07-17-2023 End: 07-17-2023 Telemedicine consultation with patient 07/17/2023 9:20 AM EST Telemedicine [facility] [address] [place] [address] Naya Galicia, GATE SHEAR OPERATOR-PUBLIC SPEAKING PROFESSOR [address] 7th [place] [address] [facility] [place] Start: 05-29-2023 End: 05-29-2023 Patient encounter procedure 05/29/2023 8:20 AM EST Office Visit [facility] [address] [facility] [address] [place] [phone] Yulia Pisano, GATE SHEAR OPERATOR-PUBLIC SPEAKING PROFESSOR [phone] [place] [address] [facility] Start: 05-04-2023 End: 05-04-2023 Patient encounter procedure [facility] [place] Start: 04-30-2023 End: 04-30-2023 Patient encounter procedure 04/30/2023 10:00 AM EDT Office Visit [facility] [place] [address] [facility] [address] [place] [phone] Desire Forbes MD [address] [facility] [address] [place] [address] [facility] [place] Start: 03-30-2023 End: 03-30-2023 Patient encounter procedure 03/30/2023 10:20 AM EDT Office Visit [facility] [address] [facility] [address] [place] [address] Yulia Pisano, GATE SHEAR OPERATOR-PUBLIC SPEAKING PROFESSOR [address] [facility] [address] [place] [address] [facility] Start: 03-16-2023 COVID-19 VACCINE ( season) COVID-19 VACCINE ( season) [facility] Start: 03-16-2023 Influenza vaccination [facility] Start: 03-06-2023 End: 03-06-2023 Patient encounter procedure [facility] Start: 02-27-2023 End: 02-27-2023 Patient encounter procedure 02/27/2023 3:20 PM EDT Office Visit [facility] [place] [id number] [facility] [address] [place] [address] Naya Galicia, GATE SHEAR OPERATOR-PUBLIC SPEAKING PROFESSOR [address] 7th [place] [address] [facility] [place] Start: 02-21-2023 End: 02-21-2024 [facility] Comment on above: Expected: 02/21/2023 , Expires: 02/21/2024 1 Occurrences starti ng 02/21/2023 until 02/21/2023 Start: 02-21-2023 End: 02-21-2023 Patient encounter procedure 02/21/2023 1:45 PM EDT Office Visit [facility] [address] [place] [address] Jonn Marley MD [address] [place] [address] [facility] Start: 02-08-2023 End: 11-10-2023 LIPID PANEL W CALCULATED LDL LIPID PANEL W CALCULATED LDL Lab Routine Current smoker Mixed hyperlipidemia Expected: 02/08/2023, Expires: 11/10/2023 [facility] Comment on above: Expected: 02/08/2023 , Expires: 11/10/2023 Start: 01-25-2023 End: 01-25-2023 Patient encounter procedure 01/25/2023 8:00 AM EDT Appointment Imaging [facility] [address] 1st [place] [phone] Ana Cuevas, GATE SHEAR OPERATOR-PUBLIC SPEAKING PROFESSOR [address] [place] [phone] Imaging [facility] Start: 01-09-2023 End: 01-10-2024 6-minute walk test EXERCISE-6 MIN. WALK PFT Routine Panlobular emphysema Expected: 01/09/2023, Expires: 01/10/2024 [facility] Comment on above: Expected: 01/09/2023 , Expires: 01/10/2024 Start: 01-09-2023 End: 01-10-2024 CT Chest WO contrast CT CHEST WITHOUT CONTRAST Imaging Routine Lung nodule Expected: 01/09/2023, Expires: 01/10/2024 [facility] Comment on above: Expected: 01/09/2023 , Expires: 01/10/2024 Start: 01-09-2023 End: 01-10-2024 Hypoxia altitude simulation test with supplemental oxygen titration OXYGEN TITRATION IN PULMONARY LAB PFT Routine Panlobular emphysema Expected: 01/09/2023, Expires: 01/10/2024 [facility] Comment on above: Expected: 01/09/2023 , Expires: 01/10/2024 Start: 01-09-2023 End: 01-09-2023 Patient encounter procedure [facility] Start: 01-05-2023 End: 01-05-2023 Telemedicine consultation with patient [facility] Comment on above: Arrived Start: 12-29-2022 End: 12-29-2022 Telemedicine consultation with patient 12/29/2022 3:20 PM EDT Telemedicine [facility] [place] [address] [facility] [address]aves[address] [place] [phone] Naya Galicia, GATE SHEAR OPERATOR-PUBLIC SPEAKING PROFESSOR [address] [place], [place] [address] 7th [place] [address] Arrived [facility] [place] Comment on above: Arrived Start: 12-28-2022 End: 12-29-2023 US.doppler Lower extremity artery - right VASC DUPLEX ARTERIAL EXTREMITY LOWER RIGHT Imaging Routine Right foot pain Expected: 12/28/2022, Expires: 12/29/2023 [facility] Comment on above: Expected: 12/28/2022 , Expires: 12/29/2023 Start: 12-28-2022 End: 12-28-2022 Patient encounter procedure 12/28/2022 Office Visit Family Medicine Yulia Pisano, GATE SHEAR OPERATOR-PUBLIC SPEAKING PROFESSOR [address] [facility] [address] [place] [address] [facility] Start: 12-13-2022 End: 12-13-2022 Patient encounter procedure 12/13/2022 Appointment Magnetic Resonance Imaging Shweta Stoner MD [address] [facility] [address] [place] [phone] Imaging [facility] Start: 11-21-2022 End: 11-22-2023 MR Brain WO contrast MRI BRAIN WITHOUT CONTRAST Imaging Routine Headache, chronic daily Expected: 11/21/2022, Expires: 11/22/2023 [facility] Comment on above: Expected: 11/21/2022 , Expires: 11/22/2023 Start: 11-21-2022 End: 11-21-2022 Patient encounter procedure 11/21/2022 Office Visit Neurology Shweta Stoner MD 543 [facility] [address] [place] [phone] [facility] [place] Start: 11-07-2022 End: 12-08-2023 MG Breast - bilateral Screening MAMMO SCREENING BILATERAL Imaging Routine Encounter for screening mammogram for malignant neoplasm of breast Expected: 11/07/2022, Expires: 12/08/2023 [facility] Comment on above: Expected: 11/07/2022 , Expires: 12/08/2023 Start: 11-07-2022 End: 11-08-2023 Screening colonoscopy SCREENING COLONOSCOPY GI/Bronch Routine Screening for colon cancer Expected: 11/07/2022, Expires: 11/08/2023 [facility] Comment on above: Expected: 11/07/2022 , Expires: 11/08/2023 Start: 10-10-2022 End: 10-10-2022 Patient encounter procedure 10/10/2022 Office Visit Rheumatology Meaghan Chambers, GATE SHEAR OPERATOR-PUBLIC SPEAKING PROFESSOR [address] [facility] [address] [place] [phone] Rheumatology Outpatient Care [facility] Start: 09-28-2022 End: 09-28-2022 Patient encounter procedure 09/28/2022 Office Visit Family Medicine Yulia Pisano, GATE SHEAR OPERATOR-PUBLIC SPEAKING PROFESSOR [address] [facility] [address] [place] [address] [facility] Start: 09-22-2022 Screening for malign ant neoplasm of breast MAMMOGRAM SCREENING DISCUSSION [facility] Start: 09-22-2022 Screening mammography MAMMOGRA M SCREENING DISCUSSION [facility] Start: 12-27-2022 Fasting lipid profile LIPID SCREENIN G [facility] Work Phone: Start: 05-18-2022 End: 05-18-2022 Patient encounter procedure 05/18/2022 Office Visit Dermatology George Jesus MD [address] [facility] [address] [place] [phone] Derm[facility]ology [facility] [place] Start: 03-16-2022 Influenza vaccination INFLUENZA VACC INE (#1) [facility] Start: 01-31-2022 End: 01-31-2022 Patient encounter procedure 01/31/2022 Office Visit Pulmonary Disease Kamini Allen MBBS [address] [facility] [address] [place] [address] [facility] [place] Start: 12-20-2021 End: 12-20-2021 Patient encounter procedure 12/20/2021 Office Visit Pulmonary Disease Kamini Allen MBBS [address] [facility] [address] [place] [address] [facility] [place] Start: 12-20-2021 End: 12-20-2021 Patient encounter procedure 12/20/2021 Appointment Computerized Tomography Scan Sharri Romo, GATE SHEAR OPERATOR-PUBLIC SPEAKING PROFESSOR [address] 1st Floor [facility] [address] [place] [address] Department of Radiology Start: 11-21-2021 End: 11-21-2021 Patient encounter procedure 11/21/2021 Office Visit Family Medicine Yulia Pisano, GATE SHEAR OPERATOR-PUBLIC SPEAKING PROFESSOR [address] [facility] [address] [place] [address] [facility] Start: 10-11-2021 End: 10-11-2022 LULU MULTIPLEX SCRN WITH REFLEX [facility] Comment on above: Expected: 10/11/2021 , Expires: 10/11/2022 Start: 05-03-[address] [facility] Start: 05-03-2021 Screening for malign ant neoplasm of colon COLONOSCOPY [facility] Start: 04-25-2021 COVID-19 VACCINE (3 - Booster for Moderna series) COVID-19 VACCINE (3 - Booster for Moderna series) [facility] Start: 01-18-2021 COVID-19 VACCINE (3 - Booster for Moderna series) COVID-19 VACCINE (3 - Booster for Moderna series) [facility] Start: 01-18-2021 COVID-19 VACCINE (3 - Moderna series) COVID-19 VACCINE (3 - Moderna series) [facility] Start: 2020 RSV VACCINE (1 - 1-d ose 60+ series) RSV VACCINE (1 - 1-dose 60+ series) [facility] Start: 2020 RSV VACCINE (1 - Ris k 60-74 years 1-dose series) RSV VACCINE (1 - Risk 60-74 years 1-dose series) [facility] Start: 05-03-2019 Protein mass conc COLON CANCER SCREENING DISCUSSION [facility] Work Phone: Start: 08-27-2018 End: 08-27-2018 Ambulatory 08/27/2018 Office Visit Pulmonary Disease Kamini Allen MBBS [address] [facility] 3rd [place] [address] Division of Pulmonary Diseases [place] Start: 08-27-2018 End: 08-27-2018 Ambulatory 08/27/2018 Office Visit Neurology Evelin Holman, GATE SHEAR OPERATOR-PUBLIC SPEAKING PROFESSOR [address] 7[address] [place] [address] Department of Neurology Start: 06-19-2018 End: 06-19-2018 Ambulatory 06/19/2018 Office Visit Multispecialty Martin Gilbert MD [address] [place] [address] [place] [address] [facility] Start: 03-16-2018 Influenza vaccination INFLUENZA VACC INE (#1) [facility] Work Phone: Start: 12-28-2017 Protein mass conc MAMMOGRAM SC REENING DISCUSSION [facility] Work Phone: Start: 12-28-2017 Screening for malign ant neoplasm of cervix PAP SMEAR DISCUSSION [facility] Work Phone: Start: 2010 RSV VACCINE (1 - Ris k 50-74 years 1-dose series) RSV VACCINE (1 - Risk 50-74 years 1-dose series) [facility] Start: 2010 Zoster vaccine hzv l mian for subcutaneous use ZOSTER (SHINGLES) VACCINE (1 of 2) [facility] 6-minute walk test EXERCISE-6 IN N. WALK PFT Routine Panlobular emphysema 01/08/2024 9:[address] [facility] End: 04-02-2025 Bacteria identified in Unspecified specimen by Respiratory culture [facility] Comment on above: One Time for 1 Occur rences starting 04/02/2025 until 04/02/2025, 1 completed Behav assmt w/score & docd/stand instrument NJ BEHAV ASSMT W/SCORE & DOCD/STAND INSTRUMENT NJ Charge Routine Screening for depression Ordered: 11/07/2022 [facility] Comment on above: Ordered: 11/07/2022 Behav assmt w/score & docd/stand instrument NJ BEHAV ASSMT W/SCORE & DOCD/STAND INSTRUMENT NJ Charge Routine Screening for depression Ordered: 10/29/2023 [facility] Comment on above: Ordered: 10/29/2023 Behav assmt w/score & docd/stand instrument NJ BEHAV ASSMT W/SCORE & DOCD/STAND INSTRUMENT NJ Charge Routine Screening for depression Ordered: 01/22/2025 [facility] Comment on above: Ordered: 01/22/2025 End: 03-06-[address] [facility] Work Phone: Comment on above: 1 Occurrences starti ng 03/06/2023 until 03/06/2023 End: 04-02-2025 CYTOLOGY, NON-ENERGY SCHEDULER CYTOLOGY, NON-ENERGY SCHEDULER Cytology Urgent Right upper lobe pulmonary nodule One Time for 1 Occurrences starting 04/02/2025 until 04/02/2025 [facility] Comment on above: One Time for 1 Occur rences starting 04/02/2025 until 04/02/2025 End: 04-02-2025 CYTOLOGY, NON-ENERGY SCHEDULER - FNA ONLY [facility] Comment on above: One Time for 1 Occur rences starting 04/02/2025 until 04/02/2025, 1 completed Ecg routine ecg w/le ast 12 lds w/i&r NJ ECG ROUTINE ECG W/LEAST 12 LDS W/I&R NJ - OFFICE PERFORMED Routine Pre-operative cardiovascular examination Ordered: 03/13/2025 [facility] Comment on above: Ordered: 03/13/2025 End: 04-02-2025 Fungus identified in Unspecified specimen by Culture [facility] Comment on above: One Time for 1 Occur rences starting 04/02/2025 until 04/02/2025 Hypoxia altitude simulation test with supplemental oxygen titration OXYGEN TITRATION IN PULMONARY LAB PFT Routine Panlobular emphysema 01/08/2024 9:[address] [facility] LAVENDER TOP TUBE LAVENDER TOP T UBE Lab Routine 11/21/2021 12:[address] [facility] Measurement of respiratory function PFT STANDARD PFT Routine Panlobular emphysema Ordered: 01/09/2023 [facility] Comment on above: Ordered: 01/09/2023 Measurement of respiratory function PFT STANDARD PFT Routine Nicotine dependence, uncomplicated, unspecified nicotine product type 03/06/2025 8:[address] [facility] End: 01-09-2023 MG Breast - bilateral Screening [facility] Comment on above: 1 Occurrences starti ng 01/09/2023 until 01/09/2023 MR Brain WO and W contrast IV [facility] End: 12-13-2022 MR Brain WO contrast [facility] Comment on above: 1 Occurrences starti ng 12/13/2022 until 12/13/2022 Overnight pulse oximetry OVERNIGHT PULSE OXIMETRY TEST PFT Routine Centrilobular emphysema Ordered: 12/20/2021 [facility] Work Phone: Comment on above: Ordered: 12/20/2021 End: 04-02-2025 Portable XR Chest Views [facility] Comment on above: One Time for 1 Occur rences starting 04/02/2025 until 04/02/2025 NJ OXYGEN (CLINIC ADMIN) NJ OXYGEN (CLINIC ADMIN) NJ - OFFICE PERFORMED Routine COPD with acute exacerbation Ordered: 11/21/2021 [facility] Comment on above: Ordered: 11/21/2021 RAINBOW DRAW RAINBOW DRAW Lab Routine 11/21/2021 12:[address] [facility] End: 11-21-[address] [facility] Comment on above: One Time for 1 Occur rences starting 11/21/2021 until 11/21/2021 End: 04-02-[address] [facility] Comment on above: One Time for 1 Occur rences starting 04/02/2025 until 04/02/2025, 1 completed Visit to determ ldct elig NJ VISIT TO DETERM LDCT ELIG NJ Charge Routine Personal history of tobacco use, presenting hazards to health Ordered: 03/13/2023 [facility] Comment on above: Ordered: 03/13/2023 End: 04-02-2025 XR [facility] XR [facility] Imaging Routine One Time for 1 Occurrences starting 04/02/2025 until 04/02/2025 [facility] Comment on above: One Time for 1 Occur rences starting 04/02/2025 until 04/02/2025 Immunizations Immunization Date Immunization Notes Care Provider Mitali mitchell 05-29-2023 influenza, injectabl e, quadrivalent, preservative free Yulia Pisano APRN-PUBLIC SPEAKING PROFESSOR Work Phone: [facility] 05-29-2023 Influenza quad vacci ne 0.5 ML Suspension Prefilled Syringe Yulia Pisano GATE SHEAR OPERATOR-PUBLIC SPEAKING PROFESSOR Work Phone: [facility] 05-29-2023 influenza virus vacc ine, unspecified formulation Kamini [facility] Work Phone: [facility] 2021 pneumococcal polysaccharide vaccine, 23 valent Crystal Losambe GATE SHEAR OPERATOR-[facility] Work Phone: [facility] 03-31-2021 Seasonal, quadrivale nt, recombinant, injectable influenza vaccine, preservative free Crystal Losambe GATE SHEAR OPERATOR-[facility] Work Phone: [facility] 03-31-2021 influenza virus vacc ine, unspecified formulation Kamini [facility] Work Phone: [facility] 11-23-2020 COVID-19 vaccine, mR MATT, Moderna 0.5 ML Crystal Losambe GATE SHEAR OPERATOR-[facility] Work Phone: [facility] 10-27-2020 COVID-19 vaccine, mR MATT, Moderna 0.5 ML Crystal Losambe GATE SHEAR OPERATOR-[facility] Work Phone: [facility] 06-21-2020 Seasonal, quadrivale nt, recombinant, injectable influenza vaccine, preservative free Crystal Losambe GATE SHEAR OPERATOR-[facility] Work Phone: [facility] 05-15-2019 influenza, injectabl e, quadrivalent, preservative free [facility] Work Phone: [facility] 05-15-2019 pneumococcal conjuga te vaccine, 13 valent [place] [facility] Work Phone: [facility] 04-05-2015 tetanus toxoid, redu otilia diphtheria toxoid, and acellular pertussis vaccine, adsorbed [facility] Work Phone: 12-14-2008 tetanus and diphther ia toxoids, adsorbed, preservative free, for adult use (5 Lf of tetanus toxoid and 2 Lf of diphtheria toxoid) [facility] [employer] OPERATOR-[employer]AKING PROFESSOR Work Phone: [facility] Payers Date Payer Category Payer Self-pay 2016 Medicaid (Managed Care) [employer] [id number] 2016 Unknown 2016 Unknown [id number] 1960 Unknown [id number] 2.840.1.403601.3.579.2. 419 1960 Unknown [id number] 2.16840.1.153828.3.579.2. 419 1960 Unknown [id number] 2.16.840.1.528565.3.579.2. 419 1960 Unknown [id number] 2.16.840.1.223674.3.579.2. 594 1960 Unknown [id number] 2.16.840.1.145744.3.579.2. 594 1960 Unknown [id number] 2.16.840.1.779294.3.579.2. 594 1960 Unknown [id number] 2.16.840.1.333489.3.579.2. 594 1960 Unknown [id number] 2.16.840.1.847232.3.579.2. 594 1960 Unknown [id number] 2.16.840.1.260538.3.579.2. 594 1960 Unknown [id number] 2.16.840.1.718151.3.579.2. 594 1960 Unknown [id number] 2.16.840.1.612106.3.579.2. 594 1960 Unknown [id number] 2.16.840.1.896706.3.579.2. 594 1960 Unknown [id number] 2.16.840.1.188771.3.579.2. 594 1960 Unknown [id number] 2.16.840.1.299710.3.579.2. 594 1960 Unknown [id number] 2.16.840.1.992643.3.579.2. 594 1960 Unknown [id number] 2.16.840.1.626655.3.579.2. 594 1960 Unknown [id number] 2.840.1.221196.3.579.2. 594 1960 Unknown [id number] 2.16.840.1.345686.3.579.2. 594 1960 Unknown [id number] 2.16.840.1.985763.3.579.2. 594 1960 Unknown [id number] 2.16.840.1.204071.3.579.2. 594 1960 Unknown [id number] 2.16840.1.193028.3.579.2. 594 Unknown [id number] 2.16.840.1.248503.3.579.2. 462 Unknown [id number] 2.16840.1.055964.3.579.2. 462 Unknown [id number] 2.16840.1.933215.3.579.2. 462 Unknown [id number] 2.16840.1.415557.3.579.2. 462 Unknown [id number] 2.16.840.1.531350.3.579.2. 462 Social History Date Type Detail Facility Start: 11-24-1991 End: 04-14-2025 Tobacco smoking status NHIS Current every day smoker [facility] Start: 11-24-1991 End: 11-23-2021 History of tobacco use Cigarette Smoker [facility] Work Phone: Start: 06-13-2018 End: 10-29-2023 Cigarettes smoked current (pack per day) - Reported [facility] Work Phone: Start: 1960 Sex Assigned At Not on file [facility] Work Phone: Start: 09-09-2020 End: 04-14-2025 Tobacco use and exposure Smokeless tobacco non-user [facility] Start: 10-11-2021 End: 04-14-2025 Alcohol intake Current non-drinker of alcohol (finding) [facility] Start: 09-22-2021 End: 11-07-2022 History SDOH Alcohol Frequency 1 [facility] Start: 09-22-2021 End: 11-07-2022 History SDOH Alcohol Std Drinks 0 [facility] Start: 12-28-2016 History SDOH Alcohol Comment rare [facility] Start: 09-22-2021 End: 11-07-2022 History SDOH Social Connections Phone 5 [facility] Start: 09-22-2021 End: 11-07-2022 History SDOH Social Connections Membership 2 [facility] Start: 09-22-2021 End: 11-07-2022 History SDOH Stress 3 [facility] Start: 09-22-[address] [facility] Start: 08-27-2018 Tobacco Comment quit on 08/24/2018 [facility] Start: 10-01-2021 End: 11-21-2021 Exposure to SARS-CoV-2 (event) Not sure [facility] Start: 11-21-2021 Tobacco Comment did smoke yesterday but trying to quit [facility] Start: 12-20-2021 End: 11-23-2021 Tobacco smoking status NHIS Occasional tobacco smoker [facility] Start: 12-20-2021 Tobacco Comment smokes 1 cigarette on occasion due to stress [facility] Start: 11-07-2022 Tobacco Comment Smoking about [address] [facility] Start: 1960 Sex Assigned At Female [facility] Start: 11-07-2022 End: 10-29-2023 Social connection and isolation panel [facility] Do you belong to any clubs or organizations such as [employer] groups, [employer], [employer] or [employer] groups, or school groups? No [facility] Attends Club or Organization Meetings Not on file [facility] Are you now , , , , never or living with a partner? [facility] How often to you hav e a drink containing alcohol? Never [facility] Do you feel stress - tense, restless, nervous, or anxious, or unable to sleep at night because your mind is troubled all the time - these days [OSQ] To some extent [facility] (I/We) worried wheth er (my/our) food would run out before (I/we) got money to buy more. Never true [facility] Start: 12-26-2016 Gender identity Identifies as female gender (finding) [facility] Start: 11-07-2022 Sexual orientation Heterosexual (finding) [facility] Start: 02-10-2023 End: 02-20-2023 Exposure to SARS-CoV-2 (event) Unable to assess [facility] History of tobacco use Passive smoker [facility] Do you feel stress - tense, restless, nervous, or anxious, or unable to sleep at night because your mind is troubled all the time - these days [OSQ] Not at all [facility] Do you belong to any clubs or organizations such as [employer] groups, [employer], [employer] or athletic groups, or school groups? Yes [facility] Do you feel stress - tense, restless, nervous, or anxious, or unable to sleep at night because your mind is troubled all the time - these days [OSQ] Only a little [facility] Start: 08-18-2012 Sex Female (finding) [facility] Start: 04-15-2025 Tobacco smoking status NHIS Ex-smoker (finding) [facility] Start: 04-14-2025 Tobacco Comment 04/14/25 - less than 0.[address] [facility] Goals Date Patient Goal Desired Activity /State Personal health goal Personal health goal Personal health goal Personal health goal Personal health goal Functional Status Date Assessment Result Facility 01-22-2025 Alcohol Use Disorder Identification Test [AUDIT] [facility] 11-21-2021 Are you deaf, or do you have serious difficulty hearing No 11/21/2021 5:38 PM Raven Mendez, ANGELITA No [facility] 11-21-2021 Are you blind, or do you have serious difficulty seeing, even when wearing glasses No 11/21/2021 5:38 PM Raven Mendez RN No [facility] 11-21-2021 Do you have serious difficulty walking or climbing stairs No 11/21/2021 5:38 PM Raven Mendez, ANGELITA No [facility] 11-21-2021 Do you have difficul ty dressing or bathing No 11/21/2021 5:38 PM Raven Mendez, ANGELITA No [facility] 11-21-2021 Because of a physica l, mental, or emotional condition, do you have difficulty doing errands alone such as visiting a physician's office or shopping No 11/21/2021 5:38 PM Raven Mendez, ANGELITA No [facility] Mental Status Date Assessment Result Facility 11-21-2021 Because of a physica l, mental, or emotional condition, do you have serious difficulty concentrating, remembering, or making decisions No 11/21/2021 5:38 PM Raven Mendez, ANGELITA No [facility] Clinical Notes 10-11-2021 to 04-20-2025 Alma Baptiste MD - 04/14/2025 3:24 PM Angelica Paula PA-C - 04/14/2025 2:00 PM Angelica Paula PA-C - 04/14/2025 2:00 PM Frandy White APRN-PUBLIC SPEAKING PROFESSOR - 04/10/2025 9:30 AM EDTAttachments Note Date & Type Note Facility 04-20-2025 Progress note [facility] 04-14-2025 History of Present illness Narrative Ms. Chin Whiting is a 64-year-old female, current smoker, with severe COPD. She was diagnosed with right-sided lung cancer. She has had 2 lesions diagnosed on imaging that was done for surveillance of a nodule, and both lesions were biopsied showing adenocarcinoma in the lower lobe and suspicious cells for adenocarcinoma in the upper lobe. She has undergone PET scan for staging that does not show any additional evidence of metastatic disease. She does have one more nodule in the right lower lobe that is not PET avid, likely benign. She has already seen Radiation Oncology and was tending towards SBRT for treatment. I have checked her lung functions that are very borderline with an FEV1 of 47%, DLCO of 54%. We have also reviewed the scan and the location of the lesion. It would require two anatomic resections for resection and she would lose a considerable amount of lung and I do not think she would do well with surgery, in particularly to anatomic resection, and therefore, I agree with radiation as a best option for her and she will see a colleague locally for evaluation for SBRT. ([id number]) documented in this encounter [facility] 04-14-2025 History and physical note Images from the original note were not included. History and Physical Patient: Chin Whiting Date: 04/14/2025 2:42 PM Attending Physician: Alma Baptiste MD Chief Complaint: Chief Complaint Patient presents with New Patient HPI: Chin Whiting is a 64 y.o. 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 Allen for surgical evaluation of newly diagnosed NSCLC of the RLL and RUL. She was intially noted to have a RLL nodule on a scan in 2017. A CT chest in January of 2024 noted interval growth of RLL nodule measuring 1.3 x 0.9cm. She then completed a PET CT on 02/11/25 demonstrating 2 moderately metabolic right lung nodules. A CT chest was obtained 03/06/25. Previously measured medial right lower lobe nodule has decreased in size measuring 9 x 7 mm (series 2 image 282), previously 13 x 9 mm in 2023 and did not show hypermetabolic activity on recent PET imaging. Increased size of a more lateral right lower lobe nodule measuring 6 x 5 mm (series 2 image 285), previously 5 x 2 mm 2023 and it did show hypermetabolic activity on recent PET imaging. Right upper lobe spiculated nodule measuring 7 x 6 mm (series 2 image 116). This is new compared to January 2024 where there was only a small area of architectural distortion in this area with no nodule but is stable in size compared to recent PET imaging which showed associated hypermetabolic activity. She is sp miri bronch with biopsy on 04/02/25. RUL nodule is suspicious for adenocarcinoma. RLL nodule positive for adenocarcinoma. She has met with rad onc with plans for SBRT to the RUL and RLL nodules in [place]. She has a hx of a robotic DARRYL wedge in 2008 for a benign nodule. No other surgeries on the chest. She denies new cough or SOB. No unexpected weight changes. No hx of [place], stroke. She is not on AC. Past Medical/Surgical History Past Medical History[1] Past Surgical History[2] Oncology History Overview Note Pt with history of DARRYL wedge resection in 2008 for presumed cancer, pathology was negative for cancer. Has been followed with imaging since that time. Pt had EBUS bx on 04/02/25 with RUL and RLL nodules showing adenocarcinoma lung PDL-1 <1%, pulmol pending. IP referred pt to rad onc, T/S and med onc for follow up care. PFT's were completed on 03/06/25. Adenocarcinoma, lung 02/11/2025 Imaging PET SCAN IMPRESSION: There are 2 new moderately metabolic right lung nodules, suspicious for recurrence. 03/06/[address] CHEST IMPRESSION: 1. New and enlarging pulmonary nodules compared to 2023 which showed hypermetabolic activity on recent PET imaging suspicious for neoplasm. Medial right lower lobe nodule has decreased in size and did not show hypermetabolic activity on PET and is likely benign. 2. Moderate severe centrilobular emphysema. 3. No intrathoracic lymphadenopathy. 4. 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 Recommend cardiology consultation. 04/02/2025 Initial Diagnosis Adenocarcinoma, lung 04/02/2025 Pathology Pathologic Diagnosis A. Lung, right upper lobe, nodule, cryo biopsy: Atypical glandular proliferation, suspicious for adenocarcinoma. Note. The diagnosis is supported on immunostains for CK7, NapsinA and TTF1 (block A1). B. Lung, right lower lobe, nodule, cryo biopsy: Pulmonary adenocarcinoma with papillary features. Note. The diagnosis is supported on immunostains for CK7, NapsinA and TTF1 (block B1). Addendum PD-L1 IHC 22C3 pharmDx Result, TPS: <1% A. LUNG NODULE, RIGHT LOWER LOBE, FNA (CYTOLOGY AND CELL BLOCK): FINAL DIAGNOSIS: Positive for Malignancy, Adenocarcinoma Note: The cell block is inadequate for ancillary testing. Please correlate with the concurrent biopsy ([id number]). Immediate Study: Adequacy/Preliminary Diagnosis: Adequate Kymberly Melissa, CT (ASCP), April 02, 2025 B. LUNG NODULE, RIGHT UPPER LOBE, FNA (CYTOLOGY AND CELL BLOCK): FINAL DIAGNOSIS: Non-Diagnostic Due To Insufficient Cellular Material Immediate Study: Adequacy/Preliminary Diagnosis: Not Adequate Kymberly Melissa, CT (ASCP), April 02, 2025 C. STATION 7 LYMPH NODE, FNA (CYTOLOGY AND CELL BLOCK): FINAL DIAGNOSIS: No Malignant Cells Are Identified Lymphocytes Present Immediate Study: Adequacy/Preliminary Diagnosis: Not Adequate Kymberly Melissa, CT (ASCP), April 02, 2025 She is not on home oxygen She does not have a history of stroke. She does not have any residual deficits. Family History Family History Problem Relation Age of Onset Diabetes Mother Hypertension Mother Other - Specify Mother alzheimers Hemachromatosis Father Other - Specify Father disorder - "too much iron in blood" Other - Specify Sister Chronic lung disease Aneurysm Brother Cancer- Other Paternal Uncle lymphoma Other - Specify Paternal Grandmother TB Diabetes Paternal Grandfather Other - Specify Son son of heart defect Heart Failure Son Bleeding or Clotting Problems Son Platelet storage pool deficiency Other - Specify Son severe allergies Other - Specify Cousin multiple myeloma Bleeding or Clotting Problems Son Other - Specify Sister Bleeding or Clotting Problems Son Other - Specify Son Other - Specify Son Bleeding or Clotting Problems Son Other - Specify Son Other - Specify Sister Colorectal Cancer Neg Hx Breast Cancer Neg Hx Ovarian Cancer Neg Hx Uterine Cancer Neg Hx Mental Illness Neg Hx Addiction Neg Hx Dementia Neg Hx Social History Social History Tobacco Use Smoking status: Every Day Current packs/day: 0.50 Average packs/day: 0.5 packs/day for 31.4 years (15.7 ttl pk-yrs) Types: Cigarettes Start date: 11/24/1991 Last attempt to quit: 11/23/2021 Passive exposure: Current Smokeless tobacco: Never Tobacco comments: 04/14/25 - less than 0.5 ppd Substance Use Topics Alcohol use: No Comment: rare She does not have a history of daily use of narcotics for >30 days prior to this visit Living arrangement at the time of this visit: With family Medications Current Outpatient Medications Medication Sig CUSTOM MEDICATION Lung Flush CUSTOM MEDICATION [place] supplement daily multivitamin tablet DISABILITY PLACARD Disability placard end date 11/09/2027 Dulera 100-5 MCG/ACT Aerosol inhale TWO puffs BY MOUTH EVERY TWELVE HOURS HERBAL PRODUCT Take 1 Dose by mouth daily. Replace this text with the name of the herbal product HERBAL PRODUCT Take 1 Dose by mouth daily. Replace this text with the name of the herbal product Misc Natural Products (Sambucus Elderberry Immune) Chew Tab Chew 2 Pieces of gum daily. 2 in the morning, 1 at night Nebulizer Misc by Unknown route. Ondansetron 4 MG Tab Dispersible tablet Take 1 tablet by mouth every 8 hours as needed for Nausea / Vomiting. Spacer/Aero-Holding Chambers (Wilmot Choice Holding Chamber) Device Tizanidine 2 MG tablet Take 1 tablet by mouth 3 times daily as needed for Muscle spasms. She is not on chronic immunosuppressive therapy/corticosteroids >10 days at the time of this visit She is not on chronic anticoagulation >10 days at the time of this visit Allergies/Immunizations Allergies: Albuterol and Azithromycin Immunizations: Immunization History Administered Date(s) Administered [id number] COVID-19 monovalent vaccine (Moderna), 12yr+, 100mcg/0.5mL 10/27/2020, 11/23/2020 Dexamethasone Inj 11/10/2010 Influenza Vaccine, (RECOMB) Quadrivalent PF 06/21/2020, 03/31/2021 Influenza, injectable, quadrivalent, preservative free 05/15/2019, 05/29/2023 Lidocaine 1% Inj 11/10/2010 Pneumococcal Conjugate 13-valent vaccine 05/15/2019 Pneumococcal Polysac 23-Valent Vaccine 2021 Td Vaccine 5-2 Lf 12/14/2008 Tdap Vaccine 04/05/2015 Review of Systems At the time of the visit patient reports ROS per HPI. All other systems queried and are negative. OBJECTIVE: Physical Exam Blood pressure 117/71, pulse 93, resp. rate 18, height 1.626 m (5' 4"), weight 44.3 kg (97 lb 11.2 oz), SpO2 93%, not currently . on RA Constitutional: she is alert, oriented, well-developed, well-nourished, and in no acute distress. HEENT: Oropharynx is clear and moist. Extraocular motions are normal. Neck: Neck supple. No tracheal deviation present. No thyromegaly present. Cardiovascular: Normal rate and regular rhythm. No murmur heard. Pulmonary/Chest: Breathing non-labored. Abdomen: Abdomen soft, non-tender, non-distended. Bowel sounds present in all four quadrants. Musculoskeletal: She exhibits no edema. Lymphadenopathy: She has no cervical adenopathy. Neurological: She is alert and oriented. Skin: No rash noted. ECO Imaging/Procedures/Results Review: Personal review completed of: CT chest 01/23/24 IMPRESSION: 1. Mild interval increase in size of right lower lobe nodule, concerning for slow growing primary malignancy in a smoker though to demonstrate hypermetabolic activity on prior PET/CT. I suggest further evaluation with biopsy and repeating PET/CT. 2. New indeterminate small nodule in the right lower lobe, cannot exclude metastatic disease in the proper clinical setting. I suggest [address] follow-up. 3. Moderate to severe centrilobular emphysema. 4. No lymphadenopathy within the chest. PET 02/11/25 IMPRESSION: There are 2 new moderately metabolic right lung nodules, suspicious for recurrence. CT chest 03/06/25 IMPRESSION: 1. New and enlarging pulmonary nodules compared to 2023 which showed hypermetabolic activity on recent PET imaging suspicious for neoplasm. Medial right lower lobe nodule has decreased in size and did not show hypermetabolic activity on PET and is likely benign. 2. Moderate severe centrilobular emphysema. 3. No intrathoracic lymphadenopathy. 4. 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 Recommend cardiology consultation. PFTs 03/06/25 Pathologic Diagnosis A. Lung, right upper lobe, nodule, cryo biopsy: Atypical glandular proliferation, suspicious for adenocarcinoma. Note. The diagnosis is supported on immunostains for CK7, NapsinA and TTF1 (block A1). B. Lung, right lower lobe, nodule, cryo biopsy: Pulmonary adenocarcinoma with papillary features. Note. The diagnosis is supported on immunostains for CK7, NapsinA and TTF1 (block B1). ASSESSMENT/PLAN: Chin Whiting is a 64 y.o. 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 Allen for surgical evaluation of newly diagnosed NSCLC of the RLL and RUL. Imaging and relevant data reviewed with Dr. Baptiste. Patient has seen rad onc with plans for SBRT locally. We agree with this plan as opposed to surgery given her current smoking status and PFT results. She may follow up with thoracic surgery as needed. The patient was seen and plan of care was discussed with Alma Baptiste MD. 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 Chronic obstructive pulmonary disease (COPD) COVID-19 05/2021 Depression Heel fracture 03/21/2014 right heel Lung nodule s/p open lung biopsy, path benign Migraines Neck pain s/p cervical steroid injection Pelvic fracture 02/2024 Left per patient Pneumonia 2001 Whooping cough [2] Past Surgical History: Procedure Laterality Date COMPLETE EXTRACTION OF TEETH 08/26/2018 COLONOSCOPY DIAGNOSTIC N/A 05/03/2018 Laterality: N/A; Surgeon: Steven Gardner MD; Location: [facility] [place] COLONOSCOPY FOR COLORECTAL CANCER SCREENING HIGH RISK INDIVIDUAL N/A 05/02/2018 Laterality: N/A; Surgeon: Rohit Rojas MD; Location: [facility] [place] LUNG BIOPSY 03/2009 for lung nodule AMPUTATION FINGER OR HAND 2007 L 5th digit; chondrosarcoma HYSTERECTOMY, TOTAL ABDOMINAL 1996 ARM SURGERY 1995 fracture TONSILLECTOMY 1975 HYSTERECTOMY ~1995 OOPHORECTOMY Bilateral ~1995 Cosigned by Alma Baptiste MD at 04/30/2025 2:14 PM EDT Associated attestation - Alma Baptiste MD - 04/30/2025 2:14 PM EDT Thoracic Surgery Attending I saw and independently examined the patient. I agree with the history of present illness, past medical history, family history, social history, medication list, and allergies as listed. Independent review of labs and radiographs, as well as review medical records, confirm the findings noted below, I agree with the assessment and plan as noted below. I have reviewed the note and made edits as neccessary. Please see the separate progress note for my impression. The plan was developed mutually at the time of the clinic visit. The nurse practitioner/physician occupational therapy assistant and I have spoken with the patient and provided written and verbal instructions for the patient. The IRIS note has been reviewed and I agree with the assessment and plan. Follow-up arrangements were made prior to the patient being discharged from the clinic. Alma Baptiste MD [facility] Work Phone: 04-14-2025 History and physical note Images from the original note were not included. History and Physical Patient: Chin Whiting Date: 04/14/2025 2:42 PM Attending Physician: Alma Baptiste MD Chief Complaint: Chief Complaint Patient presents with New Patient HPI: Chin Whiting is a 64 y.o. 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 Allen for surgical evaluation of newly diagnosed NSCLC of the RLL and RUL. She was intially noted to have a RLL nodule on a scan in 2018. A CT chest in January of 2024 noted interval growth of RLL nodule measuring 1.3 x 0.9cm. She then completed a PET CT on 02/11/25 demonstrating 2 moderately metabolic right lung nodules. A CT chest was obtained 03/06/25. Previously measured medial right lower lobe nodule has decreased in size measuring 9 x 7 mm (series 2 image 282), previously 13 x 9 mm in 2023 and did not show hypermetabolic activity on recent PET imaging. Increased size of a more lateral right lower lobe nodule measuring 6 x 5 mm (series 2 image 285), previously 5 x 2 mm 2023 and it did show hypermetabolic activity on recent PET imaging. Right upper lobe spiculated nodule measuring 7 x 6 mm (series 2 image 116). This is new compared to January 2024 where there was only a small area of architectural distortion in this area with no nodule but is stable in size compared to recent PET imaging which showed associated hypermetabolic activity. She is sp miri bronch with biopsy on 04/02/25. RUL nodule is suspicious for adenocarcinoma. RLL nodule positive for adenocarcinoma. She has met with rad onc with plans for SBRT to the RUL and RLL nodules in [place]. She has a hx of a robotic DARRYL wedge in 2008 for a benign nodule. No other surgeries on the chest. She denies new cough or SOB. No unexpected weight changes. No hx of [place], stroke. She is not on AC. Past Medical/Surgical History Past Medical History[1] Past Surgical History[2] Oncology History Overview Note Pt with history of DARRYL wedge resection in 2008 for presumed cancer, pathology was negative for cancer. Has been followed with imaging since that time. Pt had EBUS bx on 04/02/25 with RUL and RLL nodules showing adenocarcinoma lung PDL-1 <1%, pulmol pending. IP referred pt to rad onc, T/S and med onc for follow up care. PFT's were completed on 03/06/25. Adenocarcinoma, lung 02/11/2025 Imaging PET SCAN IMPRESSION: There are 2 new moderately metabolic right lung nodules, suspicious for recurrence. 03/06/[address] CHEST IMPRESSION: 1. New and enlarging pulmonary nodules compared to 2023 which showed hypermetabolic activity on recent PET imaging suspicious for neoplasm. Medial right lower lobe nodule has decreased in size and did not show hypermetabolic activity on PET and is likely benign. 2. Moderate severe centrilobular emphysema. 3. No intrathoracic lymphadenopathy. 4. 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 Recommend cardiology consultation. 04/02/2025 Initial Diagnosis Adenocarcinoma, lung 04/02/2025 Pathology Pathologic Diagnosis A. Lung, right upper lobe, nodule, cryo biopsy: Atypical glandular proliferation, suspicious for adenocarcinoma. Note. The diagnosis is supported on immunostains for CK7, NapsinA and TTF1 (block A1). B. Lung, right lower lobe, nodule, cryo biopsy: Pulmonary adenocarcinoma with papillary features. Note. The diagnosis is supported on immunostains for CK7, NapsinA and TTF1 (block B1). Addendum PD-L1 IHC 22C3 pharmDx Result, TPS: <1% A. LUNG NODULE, RIGHT LOWER LOBE, FNA (CYTOLOGY AND CELL BLOCK): FINAL DIAGNOSIS: Positive for Malignancy, Adenocarcinoma Note: The cell block is inadequate for ancillary testing. Please correlate with the concurrent biopsy ([id number]). Immediate Study: Adequacy/Preliminary Diagnosis: Adequate Kymberly Melissa, CT (ASCP), April 02, 2025 B. LUNG NODULE, RIGHT UPPER LOBE, FNA (CYTOLOGY AND CELL BLOCK): FINAL DIAGNOSIS: Non-Diagnostic Due To Insufficient Cellular Material Immediate Study: Adequacy/Preliminary Diagnosis: Not Adequate Kymberly Melissa, CT (ASCP), April 02, 2025 C. STATION 7 LYMPH NODE, FNA (CYTOLOGY AND CELL BLOCK): FINAL DIAGNOSIS: No Malignant Cells Are Identified Lymphocytes Present Immediate Study: Adequacy/Preliminary Diagnosis: Not Adequate Kymberly Melissa, CT (ASCP), April 02, 2025 She is not on home oxygen She does not have a history of stroke. She does not have any residual deficits. Family History Family History Problem Relation Age of Onset Diabetes Mother Hypertension Mother Other - Specify Mother alzheimers Hemachromatosis Father Other - Specify Father disorder - "too much iron in blood" Other - Specify Sister Chronic lung disease Aneurysm Brother Cancer- Other Paternal Uncle lymphoma Other - Specify Paternal Grandmother TB Diabetes Paternal Grandfather Other - Specify Son son of heart defect Heart Failure Son Bleeding or Clotting Problems Son Platelet storage pool deficiency Other - Specify Son severe allergies Other - Specify Cousin multiple myeloma Bleeding or Clotting Problems Son Other - Specify Sister Bleeding or Clotting Problems Son Other - Specify Son Other - Specify Son Bleeding or Clotting Problems Son Other - Specify Son Other - Specify Sister Colorectal Cancer Neg Hx Breast Cancer Neg Hx Ovarian Cancer Neg Hx Uterine Cancer Neg Hx Mental Illness Neg Hx Addiction Neg Hx Dementia Neg Hx Social History Social History Tobacco Use Smoking status: Every Day Current packs/day: 0.50 Average packs/day: 0.5 packs/day for 31.4 years (15.7 ttl pk-yrs) Types: Cigarettes Start date: 11/24/1991 Last attempt to quit: 11/23/2021 Passive exposure: Current Smokeless tobacco: Never Tobacco comments: 04/14/25 - less than 0.5 ppd Substance Use Topics Alcohol use: No Comment: rare She does not have a history of daily use of narcotics for >30 days prior to this visit Living arrangement at the time of this visit: With family Medications Current Outpatient Medications Medication Sig CUSTOM MEDICATION Lung Flush CUSTOM MEDICATION [place] supplement daily multivitamin tablet DISABILITY PLACARD Disability placard end date 11/09/2027 Dulera 100-5 MCG/ACT Aerosol inhale TWO puffs BY MOUTH EVERY TWELVE HOURS HERBAL PRODUCT Take 1 Dose by mouth daily. Replace this text with the name of the herbal product HERBAL PRODUCT Take 1 Dose by mouth daily. Replace this text with the name of the herbal product Misc Natural Products (Sambucus Elderberry Immune) Chew Tab Chew 2 Pieces of gum daily. 2 in the morning, 1 at night Nebulizer Misc by Unknown route. Ondansetron 4 MG Tab Dispersible tablet Take 1 tablet by mouth every 8 hours as needed for Nausea / Vomiting. Spacer/Aero-Holding Chambers (Wilmot Choice Holding Chamber) Device Tizanidine 2 MG tablet Take 1 tablet by mouth 3 times daily as needed for Muscle spasms. She is not on chronic immunosuppressive therapy/corticosteroids >10 days at the time of this visit She is not on chronic anticoagulation >10 days at the time of this visit Allergies/Immunizations Allergies: Albuterol and Azithromycin Immunizations: Immunization History Administered Date(s) Administered [id number] COVID-19 monovalent vaccine (Moderna), 12yr+, 100mcg/0.5mL 10/27/2020, 11/23/2020 Dexamethasone Inj 11/10/2010 Influenza Vaccine, (RECOMB) Quadrivalent PF 06/21/2020, 03/31/2021 Influenza, injectable, quadrivalent, preservative free 05/15/2019, 05/29/2023 Lidocaine 1% Inj 11/10/2010 Pneumococcal Conjugate 13-valent vaccine 05/15/2019 Pneumococcal Polysac 23-Valent Vaccine 2021 Td Vaccine 5-2 Lf 12/14/2008 Tdap Vaccine 04/05/2015 Review of Systems At the time of the visit patient reports ROS per HPI. All other systems queried and are negative. OBJECTIVE: Physical Exam Blood pressure 117/71, pulse 93, resp. rate 18, height 1.626 m (5' 4"), weight 44.3 kg (97 lb 11.2 oz), SpO2 93%, not currently . on RA Constitutional: she is alert, oriented, well-developed, well-nourished, and in no acute distress. HEENT: Oropharynx is clear and moist. Extraocular motions are normal. Neck: Neck supple. No tracheal deviation present. No thyromegaly present. Cardiovascular: Normal rate and regular rhythm. No murmur heard. Pulmonary/Chest: Breathing non-labored. Abdomen: Abdomen soft, non-tender, non-distended. Bowel sounds present in all four quadrants. Musculoskeletal: She exhibits no edema. Lymphadenopathy: She has no cervical adenopathy. Neurological: She is alert and oriented. Skin: No rash noted. ECO Imaging/Procedures/Results Review: Personal review completed of: CT chest 01/23/24 IMPRESSION: 1. Mild interval increase in size of right lower lobe nodule, concerning for slow growing primary malignancy in a smoker though to demonstrate hypermetabolic activity on prior PET/CT. I suggest further evaluation with biopsy and repeating PET/CT. 2. New indeterminate small nodule in the right lower lobe, cannot exclude metastatic disease in the proper clinical setting. I suggest [address] follow-up. 3. Moderate to severe centrilobular emphysema. 4. No lymphadenopathy within the chest. PET 02/11/25 IMPRESSION: There are 2 new moderately metabolic right lung nodules, suspicious for recurrence. CT chest 03/06/25 IMPRESSION: 1. New and enlarging pulmonary nodules compared to 2023 which showed hypermetabolic activity on recent PET imaging suspicious for neoplasm. Medial right lower lobe nodule has decreased in size and did not show hypermetabolic activity on PET and is likely benign. 2. Moderate severe centrilobular emphysema. 3. No intrathoracic lymphadenopathy. 4. 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 Recommend cardiology consultation. PFTs 03/06/25 Pathologic Diagnosis A. Lung, right upper lobe, nodule, cryo biopsy: Atypical glandular proliferation, suspicious for adenocarcinoma. Note. The diagnosis is supported on immunostains for CK7, NapsinA and TTF1 (block A1). B. Lung, right lower lobe, nodule, cryo biopsy: Pulmonary adenocarcinoma with papillary features. Note. The diagnosis is supported on immunostains for CK7, NapsinA and TTF1 (block B1). ASSESSMENT/PLAN: Chin Whiting is a 64 y.o. 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 Allen for surgical evaluation of newly diagnosed NSCLC of the RLL and RUL. Imaging and relevant data reviewed with Dr. Baptiste. Patient has seen rad onc with plans for SBRT locally. We agree with this plan as opposed to surgery given her current smoking status and PFT results. She may follow up with thoracic surgery as needed. The patient was seen and plan of care was discussed with Alma Baptiste MD. 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 Chronic obstructive pulmonary disease (COPD) COVID-19 05/2021 Depression Heel fracture 03/21/2014 right heel Lung nodule s/p open lung biopsy, path benign Migraines Neck pain s/p cervical steroid injection Pelvic fracture 02/2024 Left per patient Pneumonia 2002 Whooping cough [2] Past Surgical History: Procedure Laterality Date COMPLETE EXTRACTION OF TEETH 08/26/2018 COLONOSCOPY DIAGNOSTIC N/A 05/03/2018 Laterality: N/A; Surgeon: Steven Gardner MD; Location: [facility] [place] COLONOSCOPY FOR COLORECTAL CANCER SCREENING HIGH RISK INDIVIDUAL N/A 05/02/2018 Laterality: N/A; Surgeon: Rohit Rojas MD; Location: [facility] [place] LUNG BIOPSY 03/2009 for lung nodule AMPUTATION FINGER OR HAND 2007 L 5th digit; chondrosarcoma HYSTERECTOMY, TOTAL ABDOMINAL 1996 ARM SURGERY 1995 fracture TONSILLECTOMY 1975 HYSTERECTOMY ~1995 OOPHORECTOMY Bilateral ~1995 Cosigned by Alma Baptiste MD at 04/30/2025 2:14 PM EDT Associated attestation - Alma Baptiste MD - 04/30/2025 2:14 PM EDT Thoracic Surgery Attending I saw and independently examined the patient. I agree with the history of present illness, past medical history, family history, social history, medication list, and allergies as listed. Independent review of labs and radiographs, as well as review medical records, confirm the findings noted below, I agree with the assessment and plan as noted below. I have reviewed the note and made edits as neccessary. Please see the separate progress note for my impression. The plan was developed mutually at the time of the clinic visit. The nurse practitioner/physician occupational therapy assistant and I have spoken with the patient and provided written and verbal instructions for the patient. The IRIS note has been reviewed and I agree with the assessment and plan. Follow-up arrangements were made prior to the patient being discharged from the clinic. Alma Baptiste MD documented in this encounter [facility] 04-10-2025 History of Present illness Narrative Images from the original note were not included. RADIATION ONCOLOGY CONSULTATION NOTE Patient Identification: Chin M Randell is a 64 y.o. female who is seen in consultation at the [facility] Department of Radiation Oncology Clinic at the request of Dr. Allen for recommendations regarding the role of radiation in the treatment of synchronous RUL and RLL lung adenocarcinomas, both Stage IA1 ([id number]). History of Present Illness: Oncologic History: Chin Whiting is a 64 y.o. 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 She has been undergoing CT surveillance for known right lung nodule. CT chest on 01/23/24 showed mild interval increase in size of a RLL nodule concerning for malignancy, and new RLL nodule concerning for metastatic disease. She then underwent a PET a year later on 02/11/25 that showed FDG uptake to 2 right lung nodules. Updated CT chest on 03/06/25 showed new and enlarging pulmonary nodules since 2023 with FDG uptake on recent PET that are suspicious for neoplasm (RUL 7 x 6 mm, RLL 6 x 5 mm). No intrathoracic lymphadenopathy. Bronch/biopsy was completed on ; cytology from RLL nodule positive for adenocarcinoma with papillary features, cytology from RUL nodule non-diagnostic but suspicious for adenocarcinoma, station 7 LN negative for malignant cells. PDL1 negative. Of note, the following appointments are scheduled: 04/14/25: Dr. Baptiste (C/T surgery) 04/17/25: Dr. Zapata (thoracic med/onc) Interval History: Ms. Whiting presents today for consult accompanied by her two daughters. In terms of symptoms, she reports that she feels well. Energy and appetite are good. Denies shortness of breath. Chronic, intermittent, non-productive cough is stable. No hemoptysis. She has had home oxygen for over a decade but has never used it. She puts colloidal silver in her nebulizer machine and does this every other day for infection and inflammation prevention. Denies headaches, dizziness, chest pain, abdominal pain, n/v, bowel or bladder changes. No fevers. Of note, she stopped smoking 2 days ago (previously 1/2-1 ppd). She had 1 slip last night but has not had any cigarettes today. She stopped smoking recreational marijuana 1 week ago, however she continues with edibles and a tincture in her morning coffee daily. Radiation History and Other Oncologic Treatment: Ms. Whiting has no history of collagen vascular diseases, such as lupus or scleroderma. She has not had prior radiation therapy. The patient lives in [address] [place] [address]. Ms. Whiting has not had prior systemic therapy. I have reviewed Chin Whiting's medical, surgical and other pertinent history in detail, and have updated medication and allergy information in the electronic medical record. Past Medical History: She has a past medical history of Adenoid hypertrophy (05/2010), Back pain, Cardiac angina, Chondrosarcoma nos (1999), Chronic obstructive pulmonary disease (COPD), COVID-19 (05/2021), Depression, Heel fracture (03/21/2014), Lung nodule, Migraines, Neck pain, Pelvic fracture (02/2024), Pneumonia (2001), and Whooping cough. She has no past medical history of Exposure to hazardous chemical, History of chemotherapy, History of radiation exposure, History of radiation therapy, or Pacemaker. Past Surgical History: She has a past surgical history that includes tonsillectomy (1975); hysterectomy, total abdominal (1996); amputation finger or hand (2007); arm surgery (1995); lung biopsy (03/2009); colonoscopy for colorectal cancer screening high risk individual (N/A, 05/02/2018); colonoscopy diagnostic (N/A, 05/03/2018); complete extraction of teeth (08/26/2018); oophorectomy (Bilateral, ~1995); and hysterectomy (~1995). Medications: She has a current medication list which includes the following prescription(s): CUSTOM MEDICATION, CUSTOM MEDICATION, daily multivitamin tablet, DISABILITY PLACARD, Dulera 100-5 MCG/ACT Aerosol, HERBAL PRODUCT, HERBAL PRODUCT, Misc Natural Products (Sambucus Elderberry Immune) Chew Tab, Nebulizer Misc, Spacer/Aero-Holding Chambers (Wilmot Choice Holding Chamber) Device, Ondansetron 4 MG Tab Dispersible tablet, and Tizanidine 2 MG tablet. Allergies: Albuterol and Azithromycin Social History: She reports that she has been smoking cigarettes. She started smoking about 33 years ago. She has a 15.7 pack-year smoking history. She has been exposed to tobacco smoke. She has never used smokeless tobacco. She reports current drug use. Frequency: 28.00 times per week. Drug: Marijuana. She reports that she does not drink alcohol. Social History Social History Narrative Not on file Family History: Her family history includes Aneurysm in her brother; Bleeding or Clotting Problems in her son, son, son, and son; Cancer- Other in her paternal uncle; Diabetes in her mother and paternal grandfather; Heart Failure in her son; Hemachromatosis in her father; Hypertension in her mother; Other - Specify in her cousin, father, mother, paternal grandmother, sister, sister, sister, son, son, son, son, and son. Review of Systems: A review of systems was completed and was negative except for what is noted in the HPI and in the nurses note. In summary: Constitutional: [x] Negative [] Fevers/Chills [] Weight loss [] Fatigue [] Appetite change HENT: [x] Negative [] Mouth sores [] Sore throat [] Hoarseness [] Nose or sinus problems [] Ear pain Eyes: [x] Negative [] Blurry vision [] Double vision Cardiovascular: [x] Negative [] Chest pain [] Palpitations [] Ankle swelling Respiratory: [x] Negative [] Cough [] Hemoptysis [] Dyspnea at rest [] Dyspnea on exertion [] Wheezing Gastrointestinal: [x] Negative [] Heartburn [] Dysphagia [] Odynophagia [] Abdominal pain [] Nausea [] Vomiting [] Diarrhea [] Constipation [] Melena [] Hematochezia [] Scleral icterus or jaundice Genitourinary: [x] Negative [] Penile/Vaginal Discharge [] Dysuria [] Hesitancy [] Hematuria Musculoskeletal: [x] Negative [] Bone pain [] Joint pain [] Muscle pain Hematological/Lymphatic: [x] Negative [] Lymphadenopathy [] Easy bleeding [] Easy Bruising Skin: [x] Negative [] Rashes [] Itching Allergy/Immune System: [x] Negative [] Environmental allergies [] Frequent Infections Endocrine: [x] Negative [] Increased Thirst [] Heat or cold intolerance Neurological: [x] Negative [] Memory difficulties [] Focal weakness [] Focal numbness [] Difficulty speaking [] Headaches Psychiatric: [x] Negative [] Anxiety [] Depression Physical Exam: ECOG Performance Status: Grade 0 - Fully active, able to carry on all pre-disease performance without restriction Wt Readings from Last 3 Encounters: 04/10/25 44 kg (97 lb 1.6 oz) 03/13/25 (P) 44.1 kg (97 lb 3.2 oz) 02/06/25 42.7 kg (94 lb 1.6 oz) VITAL SIGNS: BP 118/74 (BP Location: Right arm, BP Position: Sitting) Pulse 88 Temp 97.7 F (36.5 C) (Infrared) Resp 16 Wt 44 kg (97 lb 1.6 oz) SpO2 94% BMI (P) 16.67 kg/m Smoking Status Every Day CONSTITUTIONAL: Well developed, well nourished, thin female, who appears their stated age of 64 y.o.. No acute distress noted. HEENT: Head: Normocephalic and atraumatic. Pupils are equal, round. Extraocular movements are intact. Sclerae are anicteric. CARDIAC: Regular rate and rhythm. No murmurs, rubs or gallops. PULMONARY/CHEST: Lungs are clear to auscultation bilaterally with the exception of fine crackles in the bases. BS decreased with fair movement throughout. No wheezes, rhonchi or rales. ABDOMINAL: Abdomen soft, non-tender, non-distended. Normoactive bowel sounds. No guarding, rebound. EXTREMITIES: Warm and well perfused. No clubbing, cyanosis, or edema. SKIN: Skin is warm and dry. No petechiae noted. No jaundice. Not diaphoretic. NEUROLOGIC EXAM: No focal neurologic deficit. Alert and oriented x 3. Speech is fluent. Gait and station are within normal limits. PSYCHIATRIC: Appropriate mood and affect for clinical situation. Data: Radiographic Studies: Pathology: 04/02/25 Pathologic Diagnosis A. Lung, right upper lobe, nodule, cryo biopsy: Atypical glandular proliferation, suspicious for adenocarcinoma. Note. The diagnosis is supported on immunostains for CK7, NapsinA and TTF1 (block A1). B. Lung, right lower lobe, nodule, cryo biopsy: Pulmonary adenocarcinoma with papillary features. Note. The diagnosis is supported on immunostains for CK7, NapsinA and TTF1 (block B1). at 0954 EDT Diagnosis Comments Principal Mechanical Engineer block: B1>B2 Addendum PD-L1 IHC 22C3 pharmDx Result, TPS: <1% CYTOLOGIC DIAGNOSIS A. LUNG NODULE, RIGHT LOWER LOBE, FNA (CYTOLOGY AND CELL BLOCK): FINAL DIAGNOSIS: Positive for Malignancy, Adenocarcinoma Note: The cell block is inadequate for ancillary testing. Please correlate with the concurrent biopsy ([id number]). B. LUNG NODULE, RIGHT UPPER LOBE, FNA (CYTOLOGY AND CELL BLOCK): FINAL DIAGNOSIS: Non-Diagnostic Due To Insufficient Cellular Material C. STATION 7 LYMPH NODE, FNA (CYTOLOGY AND CELL BLOCK): FINAL DIAGNOSIS: No Malignant Cells Are Identified Lymphocytes Present Laboratory studies: Electrolytes Lab Results Component Value Date SODIUM 141 03/06/2025 POTASSIUM 4.8 03/06/2025 CHLORIDE 103 03/06/2025 CO2 33 (H) 03/06/2025 BUN 12 03/06/2025 CREATSERUM 0.71 03/06/2025 GLUCOSE 88 03/06/2025 Lab Results Component Value Date CALCIUM 9.7 03/06/2025 PHOSPHORUS 2.7 02/09/2023 LFTs Lab Results Component Value Date ALT 12 03/06/2025 AST 13 03/06/2025 ALKPHOS 75 03/06/2025 BILITOTAL 0.3 03/06/2025 BILIDIRECT 0.1 02/13/2012 CBC Lab Results Component Value Date WBC 7.83 03/06/2025 HGB 15.7 (H) 03/06/2025 HCT 49.5 (H) 03/06/2025 PLATELET 223 03/06/2025 MCV 94.6 03/06/2025 Lab Results Component Value Date RBCDISTRIBU 13.0 03/06/2025 GRNLOCYT 58.9 03/06/2025 LYMPHOCYT 30.9 03/06/2025 MONOCYTELEC 7.3 03/06/2025 EOSINOPHILS 2.3 03/06/2025 BASOPHILS 0.5 03/06/2025 GRNLOCTYABS 5.9 03/23/2010 LYMPHOCYTABS 2.42 03/06/2025 MONOSABSOLU 0.5 03/23/2010 EOSINOPHLABS 0.18 03/06/2025 BASOPHILSABS 0.0 03/23/2010 PLATELET 223 03/06/2025 MPV 11.3 03/06/2025 Other Lab Results Component Value Date LDH 146 01/04/2023 No results found for: "AFP", "AFPMATSER", "AFPMOM", "AFPNTDONLY", "AFPFLD", AFPAMNIOFLD No results found for: "CEA", "CEAPRESHAMA", "CEANEWMETHOD" No results found for: "CA125" No results found for: "KT695E" Lab Results Component Value Date HEPATITISB Negative 11/29/2020 PFTs, 03/06/25 Assessment and Plan: In summary, Chin Whiting is a very pleasant 64 y.o. female with synchronous RUL and RLL lung adenocarcinomas, both Stage IA1 ([id number]). 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 Whiting the recommendation for definitive SBRT to the RUL and RLL nodule. We recommend 50 Gy in 5 fractions. She is scheduled for consult with Dr. Baptiste in cardiothoracic surgery on 04/14/25, however based on her recent PFTs she is unlikely to be a surgical candidate. She is scheduled with Dr. Zapata in thoracic medical oncology on 04/17/25, however no indication at this time for systemic therapy based on current staging. Consent and simulation: We reviewed the practicalities of radiation therapy and the typical radiation course, including potential early and late side toxicities. We discussed the treatment planning process using CT scan in treatment position with the use of IV contrast as appropriate. Lab Results Component Value Date CREATSERUM 0.71 03/06/2025 Ms. Whiting wishes to proceed with radiation treatment as it was described to her by Dr Khanna, however she would prefer to receive treatment closer to home at [place], which we feel is reasonable. Referral was [facility] to [facility] and we have asked JPSONAM to assist with scheduling the consult. Ms. Whiting has not been given an appointment for CT simulation for treatment planning in our department. Should she elect to proceed with treatment at [facility], we will bring her back for CT simulation and a brief follow up prior to obtain consent for treatment. Tobacco abuse: Quit smoking 2 days ago with 1 slip last night. She was congratulated on her success and encouraged to continue her efforts toward cessation. Colloidal silver nebulizer treatments: This was started by the patient without medical guidance. She was asked to refrain from these treatments given that it has not proven to be safe or effective for treatment of any condition. She has our contact information should she have questions or concerns. Thank you for allowing us to participate in the care of this very pleasant patient. Please do not hesitate to contact me should any questions arise. STEVEN Olvera Dept of Radiation Oncology I spent 45 minutes to complete the visit. This time includes: review of tests/history, performing an appropriate clinical examination, counseling and educating the patient, ordering tests, documenting clinical information in the electronic health record, independently interpreting results and communicating results to the patient. The physician was consulted for medical decision making and plan of care development. Radiation Oncology Attending Attestation: I saw and independently examined the patient today. I agree with the history of present illness, past medical history, family history, social history, medication list, and allergies as noted by STEVEN Olvera. The 14-point review of systems is as noted above. My physical exam confirms the findings listed above. In addition, I would add that her vital signs are Smoking Status Every Day ; and she is a pleasant, engaged, and cooperative, WD/WN female, NAD. NC/AT. EOMI, sclerae anicteric. Heart RRR no MRG. Lungs CTA & P bilaterally without W/R/R. Mildly diminished with moderate effort. Abdomen soft, NT/ND, NABS. No guarding, rebound. Back non-tender to percussion, no CVA tenderness. Extremities WWP, no CCE. Skin is warm and dry without petechiae or jaundice; nondiaphoretic. No neurologic deficit to observation. Appropriate mood and affect for her clinical situation. Independent review of labs and radiographs, as well as review of medical records, confirm the findings noted above. I agree with the assessment and plan with the following additional comment: Briefly, Ms. Whiting is a pleasant 64 y.o. female with a history of COPD, cigarette smoking, status post DARRYL wedge resection (no cancer). CT chest 01/23/24 for followup of a previously noted RLL nodule showed increase in size of a medial RLL nodule from 1.1 x 0.6 to 1.3 x 0.9 cm. A 5 mm RLL nodule (S3/I197) unchanged, and a new <5mm nodule in the RLL (S3/I150). Dr. Currie ordered PET/CT on 02/11/25 showed moderately avid RUL nodule 6 x 7 mm (SUVm 4.2; S201 / I160). Moderately avid RLL nodule new at 3 x 4 mm (SUVm 3.5; S201 / I218). CT chest 03/06/25 showed medial RLL nodule decreased in size; lateral RLL nodule increased in size to 6 x 5 mm, and RUL nodule incraed in size 7 x 6 mm. 03/06/25 PFTs showed FEV1 1.05L (47%pred); DLCOcor 54% predicted. 04/02/25 biopsy showed RLL positive for NSCLC / adenocarcinoma with papillary features, level 7 LN negative on biopsy; RUL nodule showed atypical glandular proliferation suspicious for adenocarcinoma, PDL1 < 1%. She is referred to radiation oncology and thoracic surgery and medical oncology for treatment options. She sees Dr. Baptiste next week 04/14/25. She sees Dr. Zapata of medical oncology on 04/17/25. NSCLC/adenocarcinoma RUL, RLL: I discussed with Ms. Whiting that surgery is typically considered the gold standard for early stage lung cancers. However, it is unclear if there are related tumors (more advanced stage) or unrelated tumors (2 stage 1 tumors). Nevertheless, there is no significant intrathoracic adenopathy and level 7 was negative by biopsy, so I think that local treatment is appropriate. SBRT is an option for any tumors that cannot be treated with radiation alone. Both tumors in the RUL an RLL are well situated for SBRT administration. We would recommend 50-55 Gy in 5 fractions to each site. We will await surgical opinion with Dr. Baptiste. I discussed anticipated local contol of approximately 90% as well as the follow-up schedule and expected protracted course of tumor size changes after treatment. I personally reviewed the typical radiation course and potential early and late toxicities, as well the simulation.. Location for treatment: She requested treatment at [place] with Dr. Garay. We will refer her to Dr. Garay. Follow-up: as needed in the future. Thank you for allowing us to participate in the care of this very pleasant patient. Please do not hesitate to contact me should any questions arise. Zain Khanna M.D., Ph.D. [facility] Department of Radiation Oncology Time to complete visit: 50 minutes This time includes: preparing to see the patient (review of tests/history), obtaining and/or reviewing separately obtained history, performing a medically appropriate evaluation, counseling and educating the patient, ordering procedures, communicating with other health critical care technician, documenting clinical information in the electronic health record, independently interpreting results, and communicating results to the patient documented in this encounter [facility] 04-02-2025 Nurse Note Endobronchial Ultrasound Procedure: Sedation, airway, and monitoring are being managed by the anesthesia team. Cytology called to the room Aspirate of lymph node: TBNA: X TBNA: X TBNA: X TBNA: X TBNA: X TBNA: X EBUS Balloon off and intact Report called to , RN [facility] 04-02-2025 Miscellaneous Notes Endobronchial Ultrasound Procedure: Sedation, airway, and monitoring are being managed by the anesthesia team. Cytology called to the room Aspirate of lymph node: TBNA: X TBNA: X TBNA: X TBNA: X TBNA: X TBNA: X EBUS Balloon off and intact Report called to , RN documented in this encounter [facility] 04-02-2025 History and physical note Interventional Pulmonology Pre-operative H&P Procedure date: 04/02/25 Past Medical History She has a past medical history of Adenoid hypertrophy (05/2010), Back pain, Cardiac angina, Chondrosarcoma nos (1999), Chronic obstructive pulmonary disease (COPD), COVID-19 (05/2021), Depression, Heel fracture (03/21/2014), Lung nodule, Migraines, Neck pain, Pelvic fracture (02/2024), Pneumonia (2001), and Whooping cough. She has no past medical history of Exposure to hazardous chemical or History of radiation exposure. Immunization History Administered Date(s) Administered [id number] COVID-19 monovalent vaccine (Moderna), 12yr+, 100mcg/0.5mL 10/27/2020, 11/23/2020 Dexamethasone Inj 11/10/2010 Influenza Vaccine, (RECOMB) Quadrivalent PF 06/21/2020, 03/31/2021 Influenza, injectable, quadrivalent, preservative free 05/15/2019, 05/29/2023 Lidocaine 1% Inj 11/10/2010 Pneumococcal Conjugate 13-valent vaccine 05/15/2019 Pneumococcal Polysac 23-Valent Vaccine 2021 Td Vaccine 5-2 Lf 12/14/2008 Tdap Vaccine 04/05/2015 Past Surgical History has a past surgical history that includes tonsillectomy (1975); hysterectomy, total abdominal (1996); amputation finger or hand (2007); arm surgery (1995); lung biopsy (03/2009); colonoscopy for colorectal cancer screening high risk individual (N/A, 05/02/2018); colonoscopy diagnostic (N/A, 05/03/2018); complete extraction of teeth (08/26/2018); oophorectomy (Bilateral, ~1995); and hysterectomy (~1995). Allergies She is allergic to albuterol and azithromycin. Home meds reviewed has a current medication list which includes the following prescription(s): daily multivitamin, dulera, HERBAL PRODUCT, HERBAL PRODUCT, ondansetron, tizanidine, CUSTOM MEDICATION, CUSTOM MEDICATION, DISABILITY PLACARD, sambucus elderberry immune, nebulizer, and clever choice holding chamber, and the following Facility-Administered Medications: lactated ringers, lidocaine 1% (pf), lidocaine hcl urethral/mucosal, sodium chloride (pf), tetracaine-benzocaine, and tranexamic acid. Review of Systems Constitutional: Denies fevers/chills, night sweats Ear, nose, throat: Denies sore throat, rhinorrhea Eyes: Denies vision changes CV: Denies chest pain, palpitations Pulm: Denies shortness of breath, no cough Hem: No history of abnormal bleeding or excess bleeding after a procedure GI: Denies abdominal pain, nausea/vomiting, diarrhea, constipation, BRBPR : Denies dysuria MSK: Negative Neuro: No numbness/tingling, weakness Skin: No rash Pre-procedure assessment and physical examination BP 111/76 (BP Location: Right arm, BP Position: Sitting) Pulse 86 Temp 97.4 F (36.3 C) (Temporal) Resp 22 SpO2 94% Smoking Status Every Day General appearance: NAD Mouth: MMM Eyes/Pupils: anicteric Chest: CTAB CV: RRR, no r/g/m Abdomen: soft, nontender, nondistended, normoactive bowel sounds Extremities: No edema Skin: no rash Neurological: moves all extremities Indication for procedure / Assessment Lung nodule Treatment Plan Plan for Bronchoscopy, flexible, Navigation bronchoscopy and tissue biopsy, EBUS TBNA, TBBx, and Bronchoalveolar lavage procedure today. Pt seen by me pre-procedure. GEOVANNY Ricketts Air[employer] Rigger of Internal Medicine Interventional Pulmonology [facility] 04-02-2025 History and physical note Interventional Pulmonology Pre-operative H&P Procedure date: 04/02/25 Past Medical History She has a past medical history of Adenoid hypertrophy (05/2010), Back pain, Cardiac angina, Chondrosarcoma nos (1999), Chronic obstructive pulmonary disease (COPD), COVID-19 (05/2021), Depression, Heel fracture (03/21/2014), Lung nodule, Migraines, Neck pain, Pelvic fracture (02/2024), Pneumonia (2001), and Whooping cough. She has no past medical history of Exposure to hazardous chemical or History of radiation exposure. Immunization History Administered Date(s) Administered COVID-19 monovalent vaccine (Moderna), 12yr+, 100mcg/0.5mL 10/27/2020, 11/23/2020 Dexamethasone Inj 11/10/2010 Influenza Vaccine, (RECOMB) Quadrivalent PF 06/21/2020, 03/31/2021 Influenza, injectable, quadrivalent, preservative free 05/15/2019, 05/29/2023 Lidocaine 1% Inj 11/10/2010 Pneumococcal Conjugate 13-valent vaccine 05/15/2019 Pneumococcal Polysac 23-Valent Vaccine 2021 Td Vaccine 5-2 Lf 12/14/2008 Tdap Vaccine 04/05/2015 Past Surgical History has a past surgical history that includes tonsillectomy (1975); hysterectomy, total abdominal (1996); amputation finger or hand (2007); arm surgery (1995); lung biopsy (03/2009); colonoscopy for colorectal cancer screening high risk individual (N/A, 05/02/2018); colonoscopy diagnostic (N/A, 05/03/2018); complete extraction of teeth (08/26/2018); oophorectomy (Bilateral, ~1995); and hysterectomy (~1995). Allergies She is allergic to albuterol and azithromycin. Home meds reviewed has a current medication list which includes the following prescription(s): daily multivitamin, dulera, HERBAL PRODUCT, HERBAL PRODUCT, ondansetron, tizanidine, CUSTOM MEDICATION, CUSTOM MEDICATION, DISABILITY PLACARD, sambucus elderberry immune, nebulizer, and clever choice holding chamber, and the following Facility-Administered Medications: lactated ringers, lidocaine 1% (pf), lidocaine hcl urethral/mucosal, sodium chloride (pf), tetracaine-benzocaine, and tranexamic acid. Review of Systems Constitutional: Denies fevers/chills, night sweats Ear, nose, throat: Denies sore throat, rhinorrhea Eyes: Denies vision changes CV: Denies chest pain, palpitations Pulm: Denies shortness of breath, no cough Hem: No history of abnormal bleeding or excess bleeding after a procedure GI: Denies abdominal pain, nausea/vomiting, diarrhea, constipation, BRBPR : Denies dysuria MSK: Negative Neuro: No numbness/tingling, weakness Skin: No rash Pre-procedure assessment and physical examination BP 111/76 (BP Location: Right arm, BP Position: Sitting) Pulse 86 Temp 97.4 F (36.3 C) (Temporal) Resp 22 SpO2 94% Smoking Status Every Day General appearance: NAD Mouth: MMM Eyes/Pupils: anicteric Chest: CTAB CV: RRR, no r/g/m Abdomen: soft, nontender, nondistended, normoactive bowel sounds Extremities: No edema Skin: no rash Neurological: moves all extremities Indication for procedure / Assessment Lung nodule Treatment Plan Plan for Bronchoscopy, flexible, Navigation bronchoscopy and tissue biopsy, EBUS TBNA, TBBx, and Bronchoalveolar lavage procedure today. Pt seen by me pre-procedure. GEOVANNY Ricketts [employer] R[facility] of Internal Medicine Interventional Pulmonology [facility] documented in this encounter [facility] 03-13-2025 History of Present illness Narrative Referring provider: Shwetha Allen MBBS Primary care provider: STEVEN Cabrera (General) Chief Complaint Patient presents with Heart Problem Patient states no complaints or concerns I had the pleasure of seeing Chin Whiting at the [facility] [place] on 03/13/2025. History of Present Illness: Chin is a 64 y.o. female with a history of COPD who was referred to cardiology for coronary ectasia. Today, patient reports some shortness of breath and cough the past few days due to mold exposure. Otherwise she denies any chest pain, dyspnea, LE edema, orthopnea, PND, palpitations. She remains active without cardiovascular symptoms. Outpatient Medications Prior to Visit Medication Sig Dispense Refill CUSTOM MEDICATION Lung Flush CUSTOM MEDICATION [place] supplement daily multivitamin tablet DISABILITY PLACARD Disability placard end date 11/09/2027 1 Each 0 HERBAL PRODUCT Take 1 Dose by mouth daily. Replace this text with the name of the herbal product HERBAL PRODUCT Take 1 Dose by mouth daily. Replace this text with the name of the herbal product [facility] Natural Products (Sambucus Elderberry Immune) Chew Tab Chew 2 Pieces of gum daily. 2 in the morning, 1 at night Mometasone Furo-Formoterol Fum (Dulera) 100-5 MCG/ACT Aerosol Inhale 2 puffs every 12 hours. (Patient taking differently: Inhale 1 puff every 12 hours. Taking one puff in the morning, and one puff at bedtime if she feels it is necessary) 13 g 1 Nebulizer Misc by Unknown route. Ondansetron 4 MG Tab Dispersible tablet Take 1 tablet by mouth every 8 hours as needed for Nausea / Vomiting. 90 tablet 3 Spacer/Aero-Holding Chambers ([place] Choice Holding Chamber) Device Tizanidine 2 MG tablet Take 1 tablet by mouth 3 times daily as needed for Muscle spasms. 90 tablet 3 No facility-administered medications prior to visit. Allergies[1] Past Medical History[2] Past Surgical History[3] Family History Problem Relation Age of Onset Diabetes Mother Hypertension Mother Other - Specify Mother alzheimers Hemachromatosis Father Other - Specify Father disorder - "too much iron in blood" Other - Specify Sister Chronic lung disease Aneurysm Brother Cancer- Other Paternal Uncle lymphoma Other - Specify Paternal Grandmother TB Diabetes Paternal Grandfather Other - Specify Son son of heart defect Heart Failure Son Bleeding or Clotting Problems Son Platelet storage pool deficiency Other - Specify Son severe allergies Other - Specify Cousin multiple myeloma Bleeding or Clotting Problems Son Other - Specify Sister Bleeding or Clotting Problems Son Other - Specify Son Other - Specify Son Bleeding or Clotting Problems Son Other - Specify Son Other - Specify Sister Colorectal Cancer Neg Hx Breast Cancer Neg Hx Ovarian Cancer Neg Hx Uterine Cancer Neg Hx Mental Illness Neg Hx Addiction Neg Hx Dementia Neg Hx 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 Tobacco Use Smoking status: Every Day Current packs/day: 0.50 Average packs/day: 0.5 packs/day for 31.3 years (15.7 ttl pk-yrs) Types: Cigarettes Start date: 11/24/1991 Last attempt to quit: 11/23/2021 Passive exposure: Current Smokeless tobacco: Never Vaping Use Vaping status: Former Substances: Nicotine, CBD Devices: Disposable Substance and Sexual Activity Alcohol use: No Comment: rare Drug use: Yes Frequency: 28.0 times per week Types: Marijuana Comment: Pipe, joint - 4 joints/day - ongoing thoughout the day Sexual activity: Not Currently Partners: Male control/protection: Hysteroscopic Tubal Occlusion Other Topics Concern Not on file Social History Narrative Not on file Social Drivers of Health Financial Resource Strain: Low Risk (10/30/2024) Overall Financial Resource Strain (CARDIA) Difficulty of Paying Living Expenses: Not hard at all Food Insecurity: No Food Insecurity (10/30/2024) Hunger Vital Sign Worried About Running Out of Food in the Last Year: Never true Ran Out of Food in the Last Year: Never true Transportation Needs: No Transportation Needs (10/30/2024) PRAPARE - Transportation Lack of Transportation (Medical): No Lack of Transportation (Non-Medical): No Physical Activity: Sufficiently Active (10/30/2024) Exercise Vital Sign Days of Exercise per Week: 7 days Minutes of Exercise per Session: 140 min Stress: No Stress Concern Present (10/30/2024) [employer] [place] [employer] - Occupational Stress Questionnaire Feeling of Stress : Only a little Social Connections: Moderately Integrated (10/30/2024) Social Connection and Isolation Panel Frequency of Communication with Friends and Family: More than three times a week Frequency of Social Gatherings with Friends and Family: More than three times a week Attends Hindu Services: More than 4 times per year Active Member of Clubs or Organizations: Yes Attends Club or Organization Meetings: More than 4 times per year Marital Status: Personal Safety: Not At Risk (10/29/2023) Humiliation, Afraid, Rape, and Kick questionnaire Fear of Current or Ex-Partner: No Emotionally Abused: No Physically Abused: No Sexually Abused: No Housing Stability: Low Risk (10/30/2024) Housing Stability Vital Sign Unable to Pay for Housing in the Last Year: No Number of Times Moved in the Last Year: 0 Homeless in the Last Year: No A review of systems was performed, with pertinent positives and negatives as noted in HPI. On physcial exam today, the vital signs are as follows: BP (P) 134/72 (BP Location: Left arm, BP Position: Sitting) Pulse (P) 94 Ht (P) 1.626 m (5' 4") Wt (P) 44.1 kg (97 lb 3.2 oz) SpO2 (P) 98% BMI (P) 16.68 kg/m Smoking Status Every Day Body mass index is 16.68 kg/m (pended).. General: appears comfortable and in no acute distress HEENT: normocephalic, atraumatic Chest: clear to auscultation bilaterally. There are no wheezes, rhonchi, or rales Cardiovascular: regular rate and rhythm, normal S1 and S2. There are no murmurs, rubs, clicks or gallops. Skin: warm, dry, intact, no appreciable rashes Extremities: warm, no lower extremity edema Neuro: alert and oriented, conversant. Relevant diagnostic data includes the following: Lab Results Component Value Date CHOLESTEROL 245 (H) 03/06/2025 TRIG 104 03/06/2025 HDL 60 03/06/2025 LDLCALC 164 (H) 03/06/2025 NHCHOL 185 (H) 03/06/2025 Lab Results Component Value Date SODIUM 141 03/06/2025 POTASSIUM 4.8 03/06/2025 CHLORIDE 103 03/06/2025 CO2 33 (H) 03/06/2025 BUN 12 03/06/2025 CREATSERUM 0.71 03/06/2025 GLUCOSE 88 03/06/2025 Lab Results Component Value Date HGBA1C 5.7 (H) 08/05/2020 ECG/Monitors: ECG 03/13/2025 - reviewed Normal sinus rhythm, incomplete RBBB CT/MRI: CT chest 03/06/2025 - reviewed Non-contrasted study demonstrated coronary artery calcium and enlargement of the left main +++++++++++++++++++++++++++++++++ ++++++++++++++++++ In summary, Ms. 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 CT scan was without contrast so unclear if any associated stenosis or the extent of dilation. Patient is asymptomatic from a cardiovascular standpoint - Able to achieve >4 METS without symptoms - Can proceed with bronchoscopy without further cardiac testing Coronary artery calcification, hyperlipidemia: LDL 164 (02/2025) - Discussed statin recommendation, though patient prefers non-pharmacologic management I have ordered the following: Orders Placed This Encounter [place] ECG, CLINIC PERFORMED Return if symptoms worsen or fail to improve.. If I can be of any further assistance, please do not hesitate to contact me. Sincerely, Kinga Carpenter MD, [facility] Division of Cardiovascular Medicine [1] Allergies Allergen Reactions Albuterol Shortness of Breath, Anxiety, Palpitations and Tachycardia MDI albuterol intolerance. Previous tolerance of nebulized albuterol. 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 Chronic obstructive pulmonary disease (COPD) COVID-19 05/2021 Depression Heel fracture 03/21/2014 right heel Lung nodule s/p open lung biopsy, path benign Migraines Neck pain s/p cervical steroid injection Pelvic fracture 02/2024 Left per patient Pneumonia 2001 Whooping cough [3] Past Surgical History: Procedure Laterality Date COMPLETE EXTRACTION OF TEETH 08/26/2018 COLONOSCOPY DIAGNOSTIC N/A 05/03/2018 Laterality: N/A; Surgeon: Steven Gardner MD; Location: [facility] [place] COLONOSCOPY FOR COLORECTAL CANCER SCREENING HIGH RISK INDIVIDUAL N/A 05/02/2018 Laterality: N/A; Surgeon: Rohit Rojas MD; Location: [facility] [place] LUNG BIOPSY 03/2009 for lung nodule AMPUTATION FINGER OR HAND 2007 L 5th digit; chondrosarcoma HYSTERECTOMY, TOTAL ABDOMINAL 1996 ARM SURGERY 1995 fracture TONSILLECTOMY 1975 HYSTERECTOMY ~1995 OOPHORECTOMY Bilateral ~1995 12 Lead EKG performed per provider's order, per policy, and given to Dr Carpenter for interpretation. Medical banana grader offered to patient prior to sensitive procedure and patient declined documented in this encounter [facility] 03-11-2025 History of Present illness Narrative Medical X Ray Tech offered. Pt declined. [facility] Miscellaneous Notes Images from the original note were not included. PULMONARY DIAGNOSTICS AMBULATORY ASSESSMENT ALLERGIES REVIEWED:y HOME MEDICATIONS REVIEWED:y FALL ASSESSMENT: HISTORY OF FALLING? n DATE OF LAST KNOWN FALL: ALTERED MOBILITY AND/OR GAIT?n ALTERED MENTAL STATUS? n FALL PREVENTION AND PROTECTION SAFETY MEASURES: PHYSICIAN AVAILABLE AND NOTIFIED USED ASSISTIVE DEVICES (WHEELCHAIR, ETC) OBTAINED ASSISTANCE FROM CO-WORKER PATIENT ESCORTED OR FAMILY MEMBER/ATTENDANT PRESENT INSTRUCTED PATIENT ON CALLING FOR ASSISTANCE LEFT DOOR OPEN FOR MONITORING OR FAMILY MEMBER/ATTENDANT PRESENT HEART RATE: 77 BLOOD PRESSURE: 105/65 SpO2: 96 TEMPERATURE:97.9 [employer] PAIN RATING AT REST: 0 Provider Notified (if applicable): (Providers name, Date and Time) documented in this encounter [facility] 03-06-2025 Progress note Formatting of t his note might be different from the original. Images from the original note were not included. PULMONARY DIAGNOSTICS AMBULATORY ASSESSMENT ALLERGIES REVIEWED:y HOME MEDICATIONS REVIEWED:y FALL ASSESSMENT: HISTORY OF FALLING? n DATE OF LAST KNOWN FALL: ALTERED MOBILITY AND/OR GAIT?n ALTERED MENTAL STATUS? n FALL PREVENTION AND PROTECTION SAFETY MEASURES: PHYSICIAN AVAILABLE AND NOTIFIED USED ASSISTIVE DEVICES (WHEELCHAIR, ETC) OBTAINED ASSISTANCE FROM CO-WORKER PATIENT ESCORTED OR FAMILY MEMBER/ATTENDANT PRESENT INSTRUCTED PATIENT ON CALLING FOR ASSISTANCE LEFT DOOR OPEN FOR MONITORING OR FAMILY MEMBER/ATTENDANT PRESENT HEART RATE: 77 BLOOD PRESSURE: 105/65 SpO2: 96 TEMPERATURE:97.9 [employer] PAIN RATING AT REST: 0 Provider Notified (if applicable): (Providers name, Date and Time) [facility] 02-06-2025 History of Present illness Narrative Referring provider: Dr. Escalera Reason for referral: Enlarging RLL lung nodule Providers: Dr. Shwetha Allen and Pearl Torres PA-C Chief complaint: Chief Complaint Patient presents with New Patient History of present illness: Ms. Chin Whiting is a 64 y.o. 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 Currie with pulmonary medicine regarding an enlarging RLL lung nodule. Her complete CT details since 2018 are below under imaging. Her most recent CT chest was 01/23/24- The RLL lung nodule measured 6 x 7 mm in 2020, it is measuring 1.3 x 0.9 cm on 01/2024 CT chest. Lesion was not PET avid on 01/2022 PET scan. She has a future repeat PET scheduled for 02/11/25 but she has not had an interval CT chest since 01/2024. How the nodule was found: Ct chest 2018 Diagnostic evaluation so far: Follow up CT chest imaging and a prior PET scan. Symptoms: She denies daily shortness of breath. She can walk up hill in her large yard chasing after her great grandkids without dyspnea. She suspects she can walk up 2 flights of stairs without dyspnea but she does not have stairs in her home. No chronic cough. She sometimes coughs up sputum first thing in the morning, it is clear sputum. No hemoptysis. No fevers, chills, night sweats. No unintentional weight loss, she tells me that she has always been thin. Good appetite. No chest pain or palpitations. For her COPD she is on dulera, she does 1 puff in the morning & only sometime at night because she wants to get off of inhalers and go "all natural." Recent pneumonia: No Smoking history:Patient is an ongoing cigarette smoker, she was down to 5 cigarettes a day but due to current stress she is currently smoking 1/2-1 PPD. She has a heavy smoking history. She is trying to fully quit. She has tried chantix and patches, she found these ineffective and she does not want to try these again. She smokes marijuana daily, she smokes 5 pre-rolled joints a day, she smokes all day long. She is going to attempt to try edibles. 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 Chronic obstructive pulmonary disease (COPD) COVID-19 05/2021 Depression Heel fracture 03/21/2014 right heel Lung nodule s/p open lung biopsy, path benign Migraines Neck pain s/p cervical steroid injection Pelvic fracture 02/2024 Left per patient Pneumonia 2002 Whooping cough Past Surgical History: Procedure Laterality Date COMPLETE EXTRACTION OF TEETH 08/26/2018 COLONOSCOPY DIAGNOSTIC N/A 05/03/2018 Laterality: N/A; Surgeon: Steven Gardner MD; Location: [facility] [place] COLONOSCOPY FOR COLORECTAL CANCER SCREENING HIGH RISK INDIVIDUAL N/A 05/02/2018 Laterality: N/A; Surgeon: Rohit Rojas MD; Location: [facility] [place] LUNG BIOPSY 03/24 for lung nodule AMPUTATION FINGER OR HAND 2007 L 5th digit; chondrosarcoma HYSTERECTOMY, TOTAL ABDOMINAL 1996 ARM SURGERY 1995 fracture TONSILLECTOMY 1975 HYSTERECTOMY ~1995 OOPHORECTOMY Bilateral ~1995 Current Outpatient Medications Medication Sig CUSTOM MEDICATION Lung Flush CUSTOM MEDICATION Mullein supplement daily multivitamin tablet DISABILITY PLACARD Disability placard end date 11/09/2027 Ipratropium-albuterol 0.5-2.5 (3) MG/3ML nebulizer solution Take 3 mL by nebulization every 4 hours as needed for Wheezing, Respiratory Distress, Breathing Treatment, Cough or Shortness of Breath. Misc Natural Products (Sambucus Elderberry Immune) Chew Tab Chew 2 Pieces of gum daily. 2 in the morning, 1 at night Mometasone Furo-Formoterol Fum (Dulera) 100-5 MCG/ACT Aerosol Inhale 2 puffs every 12 hours. Ondansetron 4 MG Tab Dispersible tablet Take 1 tablet by mouth every 8 hours as needed for Nausea / Vomiting. Spacer/Aero-Holding Chambers ([place] Choice Holding Chamber) Device Spiriva Respimat 2.5 MCG/ACT Aero Soln inhaler INHALE 2 PUFFS DAILY. Tizanidine 2 MG tablet Take 1 tablet by mouth 3 times daily as needed for Muscle spasms. Allergies Allergen Reactions Albuterol Shortness of Breath, Anxiety, Palpitations and Tachycardia MDI albuterol intolerance. Previous tolerance of nebulized albuterol. Azithromycin Anaphylaxis Other reaction(s): Anaphylaxis, AOF family history includes Aneurysm in her brother; Bleeding or Clotting Problems in her son, son, son, and son; Cancer- Other in her paternal uncle; Diabetes in her mother and paternal grandfather; Heart Failure in her son; Hemachromatosis in her father; Hypertension in her mother; Other - Specify in her cousin, father, mother, paternal grandmother, sister, sister, sister, son, son, son, son, and son. 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 Tobacco Use Smoking status: Every Day Current packs/day: 0.50 Average packs/day: 0.5 packs/day for 31.2 years (15.6 ttl pk-yrs) Types: Cigarettes Start date: 11/24/1991 Last attempt to quit: 11/23/2021 Passive exposure: Current Smokeless tobacco: Never Vaping Use Vaping status: Former Substances: Nicotine, CBD Devices: Disposable Substance and Sexual Activity Alcohol use: No Comment: rare Drug use: Yes Frequency: 28.0 times per week Types: Marijuana Comment: Pipe, joint - 4 joints/day - ongoing thoughout the day Sexual activity: Not Currently Partners: Male control/protection: Hysteroscopic Tubal Occlusion Other Topics Concern Not on file Social History Narrative Not on file Social Drivers of Health Financial Resource Strain: Low Risk (10/30/2024) Overall Financial Resource Strain (CARDIA) Difficulty of Paying Living Expenses: Not hard at all Food Insecurity: No Food Insecurity (10/30/2024) Hunger Vital Sign Worried About Running Out of Food in the Last Year: Never true Ran Out of Food in the Last Year: Never true Transportation Needs: No Transportation Needs (10/30/2024) PRAPARE - Transportation Lack of Transportation (Medical): No Lack of Transportation (Non-Medical): No Physical Activity: Sufficiently Active (10/30/2024) Exercise Vital Sign Days of Exercise per Week: 7 days Minutes of Exercise per Session: 140 min Stress: No Stress Concern Present (10/30/2024) [place] [employer] - Occupational Stress Questionnaire Feeling of Stress : Only a little Social Connections: Moderately Integrated (10/30/2024) Social Connection and Isolation Panel [NHANES] Frequency of Communication with Friends and Family: More than three times a week Frequency of Social Gatherings with Friends and Family: More than three times a week Attends Hindu Services: More than 4 times per year Active Member of Clubs or Organizations: Yes Attends Club or Organization Meetings: More than 4 times per year Marital Status: Personal Safety: Not At Risk (10/29/2023) Humiliation, Afraid, Rape, and Kick questionnaire Fear of Current or Ex-Partner: No Emotionally Abused: No Physically Abused: No Sexually Abused: No Housing Stability: Low Risk (10/30/2024) Housing Stability Vital Sign Unable to Pay for Housing in the Last Year: No Number of Times Moved in the Last Year: 0 Homeless in the Last Year: No Review of Systems Pertinent ROS discussed in HPI OBJECTIVE Physical Exam BP 135/76 (BP Location: Right arm, BP Position: Sitting) Pulse 93 Temp 97.6 F (36.4 C) (Oral) Resp 16 Ht 1.617 m (5' 3.66") Comment: taken by Erendira 02/06 Wt 42.7 kg (94 lb 1.6 oz) Comment: with shoes SpO2 93% BMI 16.32 kg/m Smoking Status Every Day Body mass index is 16.32 kg/m . GPEx: Age appropriate female, sitting in chair in no apparent distress HEENT: No pallor or icterus, MMM Pulm: Equal chest expansion bilaterally. Breath sounds are diminished bilaterally but no wheezing, rales, or rhonchi appreciate CV: RRR no rubs/ gallops or murmurs, no LE edema Skin: No rashes, clubbing or cyanosis Heme/ lymphatic: No ecchymoses, no cervical or supraclavicular lymphadenopathy Neurologic: Speech normal, no focal neurologic deficit noted Psychiatric: A&OX3, pleasant GRADE ECOG PERFORMANCE STATUS 0 Fully active, able to carry on all pre-disease performance without restriction 1 Restricted in physically strenuous activity but ambulatory and able to carry out work of a light or sedentary nature, e.g., light house work, office work 2 Ambulatory and capable of all selfcare but unable to carry out any work activities; up and about more than 50% of waking hours 3 Capable of only limited selfcare; confined to bed or chair more than 50% of waking hours 4 Completely disabled; cannot carry on any selfcare; totally confined to bed or chair Diagnostic review: I personally reviewed the following tests: Ct chest 2017- clustered nodules in RLL CT Chest 08/2020- Increased size of a 6 x 7 mm nodule in the medial aspect of the right lower lobe (series 2, image 44), previously measuring less than [address] chest 12/31/2020- RLL nodule stable at [address] chest 12/2021- RLL lung nodule stable in size but appeared slightly more irregular. PET scan 01/17/22- not pet avid but also partially cavitary RLL lung nodule noted. CT chest 02/2022- Stable lobulated nodule in the right lower lobe/azygos esophageal recess measures 0.8 x 0.6 cm (series 2 image 41), and did not demonstrate significant metabolic activity. Stable additional right lower lobe small cavitary lesion (series 7 image 201). LCS CT chest 02/2023- A lobulated medial right lower lobe nodule without significant PET activity on January 17, 2022 has slightly increased in size over multiple studies measuring 1.1 x 0.6 x 0.9 cm previously 0.8 x 0.6 x 0.9 cm onAugust 2021, (VDT 523 days suggesting benign etiology, series 3 image 205 and series 6 image 37). An additional partially cavitary right lower lobe nodule is grossly unchanged (series 3 image 204). CT chest without contrast 01/23/24- Status post left upper lobe wedge resection. Moderate to severe centrilobular emphysema with upper lobe predominance. Stable biapical scarring. Mild increase in size of medial right lower lobe nodule measuring 1.3 x 0.9 cm (series 3 image 196), previously 1.1 x 0.6 cm. This nodule did not show FDG activity on the prior PET/CT study of January 17, 2022. Additional sub-5 mm right lower lobe nodule is grossly unchanged (series 3 image 197). 06/13/2018 1:30 PM 01/17/2022 2:30 PM 01/08/2024 8:53 AM Pulmonary Function Test FVC-Pre 3.28 Liters 2.55 Liters 2.94 Liters FVC-%Pred-Pre 99 % 79 % 104 % FEV1/FVC-Pre 58 % 41 % 0.41 % FEV1-%Pred-Pre 74 % 41 % 54 % FEV1-Pre 1.9 Liters 1.04 Liters 1.21 Liters TLCPleth-%Pred-Pre 125 % 134 % 130 % TLCPleth-Pre 6.27 Liters 6.69 Liters 6.45 Liters DLCOcor-%Pred-Pre 92 % 61 % 57 % DLCOunc-Pre 17.75 mL/mmHg/min 11.43 mL/mmHg/min 12.09 mL/mmHg/min Assessment and plan: Chin Whiting is a 64 y.o. 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 Currie with pulmonary medicine regarding an enlarging RLL lung nodule. -Lung nodule: Enlarging RLL lung nodule since it was initially noted a small cluster of RLL lung nodules in 2017. The nodule increased to 6 x7 mm RLL lung nodule in 2020, as of her most recent CT chest in 01/2024 the nodule increased to 1.3 x 0.9 cm. We need an updated CT chest [place] since her last CT was 1 year ago. She is scheduled for a PET scan as well on 02/11/25. -COPD We will also obtain PFTs. The patient reports a good pulmonary performance symptomatically but she has notable emphysema on her CT chests. -Smoking hx: Current 1 PPD smoker, she has smoked for most of her adult life. She also smokes marijuana daily. She is motivated to cut back and fully quit smoking. -Follow-up: After CT chest, PET scan, and PFTs Discussed pt case & seen by Dr. Shwetha Torres PA-C Physician Anime Artist, [facility] I saw and personally examined the patient on 02/06/25 with the interventional pulmonology team. I have personally reviewed the pertinent laboratory and imaging results. I discussed the findings and therapeutic plan with the team. I agree with the history, physical examination, and plan as outlined in the above consult documentation by Savi Torres PA-C except as noted below. Plan to obtain PFT, PET scan and repeat CT scan to assess the slowly growing nodule in the RLL, suspicious for slow growing adenocarcinoma. GEOVANNY Ricketts [facility] Interventional Pulmonology [facility] documented in this encounter [facility] 01-28-2025 History of Present illness Narrative [facility] Pulmonary Follow Up Ms. Whiting was [facility] follow up of her COPD. 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 She also has a history of COPD. In seeing her today, she is doing well. She is not using Spiriva and uses Dulera once a day when she feels short of breath. She grounds her own Mullein and ingests it. She also grows her own marijuana and smokes it. She is not using oxygen. She is still smoking 1 ppd. Past medical, surgical, family history and social history were reviewed since the time of the last visit. There has been no changes. Review of Systems: systems reviewed and negative unless stated above Physical Exam: BP 110/72 (BP Location: Right arm, BP Position: Sitting) Pulse 82 Resp 18 Ht 1.626 m (5' 4") Wt 42.6 kg (94 lb) SpO2 97% BMI 16.14 kg/m Smoking Status Every Day Body mass index is 16.14 kg/m . GENERAL: Sitting in the chair, no shoes on today HEENT: No visible lymphadenopathy HEART: Regular rate and rhythm, audible s1/s2, no murmurs LUNGS: Easy respiratory effort, no wheezing or crackles, clear breath sounds bilaterally ABDOMEN: No visible masses EXTREMITIES: No cyanosis, clubbing or edema. NEURO: grossly intact. Normal affect. Gait normal. SKIN: warm and dry, no obvious rashes. Diagnostic Review CBC Lab Results Component Value Date WBC 8.17 10/29/2023 HGB 15.1 10/29/2023 HCT 47.1 (H) 10/29/2023 PLATELET 228 10/29/2023 MCV 93.1 10/29/2023 EDIF Lab Results Component Value Date RBCDISTRIBU 12.9 10/29/2023 GRNLOCYT 59.2 10/29/2023 LYMPHOCYT 31.2 10/29/2023 MONOCYTELEC 7.5 10/29/2023 EOSINOPHILS 1.5 10/29/2023 BASOPHILS 0.2 10/29/2023 GRNLOCTYABS 5.9 03/23/2010 LYMPHOCYTABS 2.55 10/29/2023 MONOSABSOLU 0.5 03/23/2010 EOSINOPHLABS 0.12 10/29/2023 BASOPHILSABS 0.0 03/23/2010 PLATELET 228 10/29/2023 MPV 10.7 10/29/2023 I personally reviewed labs, PFT, and CT Chest with the following interpretation: 06/13/2018 1:30 PM 01/17/2022 2:30 PM 01/08/2024 8:53 AM Pulmonary Function Test FVC-Pre 3.28 Liters 2.55 Liters 2.94 Liters FVC-%Pred-Pre 99 % 79 % 104 % FEV1/FVC-Pre 58 % 41 % 0.41 % FEV1-%Pred-Pre 74 % 41 % 54 % FEV1-Pre 1.9 Liters 1.04 Liters 1.21 Liters TLCPleth-%Pred-Pre 125 % 134 % 130 % TLCPleth-Pre 6.27 Liters 6.69 Liters 6.45 Liters DLCOcor-%Pred-Pre 92 % 61 % 57 % DLCOunc-Pre 17.75 mL/mmHg/min 11.43 mL/mmHg/min 12.09 mL/mmHg/min Chest CT (01/23/24): 1. Mild interval increase in size of right lower lobe nodule, concerning for slow growing primary malignancy in a smoker though to demonstrate hypermetabolic activity on prior PET/CT. I suggest further evaluation with biopsy and repeating PET/CT. 2. New indeterminate small nodule in the right lower lobe, cannot exclude metastatic disease in the proper clinical setting. I suggest [address] follow-up. 3. Moderate to severe centrilobular emphysema. 4. No lymphadenopathy within the chest. Impression: 64 year old female with history of COPD here for pulmonary evaluation. COPD (radiographic and physiologic) - also had emphysema on 2009 wedge resection Active tobacco use RLL pulmonary nodule (not PET avid in 2021, slowly growing) History of low grade cartilaginous neoplasm s/p left 5th ray resection (2007) Plan: DME - no longer using oxygen Continue albuterol and Dulera as she is. She is not interested in a daily maintenance inhaler regimen at this time PET scan to see if there are any other areas of involvement outside of the RLL. Will also refer to interventional pulmonary for consideration of a biopsy. May ultimately need resection if nothing else PET avid Tobacco abuse and dependence: positive for approximately 1 packs per day. Patient advised to quit smoking Uses cigarettes I advised patient to quit, and offered support. She is not interested in quitting at this time. Time spent providing smoking cessation counselin min Chin was seen today for follow-up. Diagnoses and all orders for this visit: Pulmonary nodule - NUC PET HEAD TO THIGH; Future Panlobular emphysema Personal history of tobacco use, presenting hazards to health I will see her for follow-up in 6 months. Bran Currie MD [facility] Pulmonary, Critical Care, and Sleep Medicine This PUBLIC SAFETY OFFICER verified patient name and date of . documented in this encounter [facility] 01-22-2025 History of Present illness Narrative Images from the original note were not included. Chin Whiting is a 64 y.o. female who presents for a scheduled visit for annual physical. CC Chief Complaint Patient presents with Physical Pt presents today for a physical Medication Refill History of Present Illness The patient presents for an annual physical and medication refills, accompanied by her great-granddaughter. Medication and Supplements - Discontinued all medications except Dulera and Zofran, which she uses as needed. - Nausea is under control but requests a refill of Ondansetron to have on hand if needed - No prescriptions since 06/2024. - Has a small amount of nebulizer solution at home. - Does not use nutritional supplements but takes elderberry and a daily multivitamin. - Finds tizanidine helpful and has one pill left. Gastrointestinal and Other Issues - Unable to schedule a colonoscopy due to repeated cancellations. - No gastrointestinal issues or breast changes. - Occasional hearing issues in left ear, suspects water in the ear. - Needs to see an eye doctor. - Uses olive oil or castor oil for eyes, mixed with cocoa butter. - No constipation, diarrhea, vomiting, or bladder issues. Respiratory Issues - Sharp pain when coughing, managed by straightening up. - Small amount of nebulizer solution at home. - Reduced Dulera dosage to 1 puff in the morning and sometimes 1 in the evening, beneficial. - Not used Spiriva for some time. Lifestyle and Activities - Smokes almost a pack of cigarettes a day due to stress. - Uses marijuana daily, prefers smoking over edibles. - No alcohol use. - Remains active seven days a week. - Currently in a relationship, feeling very safe and happy. No changes in medical or surgical history over the past year. Has advanced directives, healthcare power of employee benefits attorney, and a living will. SOCIAL HISTORY - Works as a private caregiver for end-of-life care I have reviewed the patient's medical and social history, in detail, and updated the computerized patient record. 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 Chronic obstructive pulmonary disease (COPD) COVID-19 05/2021 Depression Heel fracture 03/21/2014 right heel Lung nodule s/p open lung biopsy, path benign Migraines Neck pain s/p cervical steroid injection Pelvic fracture 02/2024 Left per patient Pneumonia 2002 Whooping cough Past Surgical History Past Surgical History: Procedure Laterality Date COMPLETE EXTRACTION OF TEETH 08/26/2018 COLONOSCOPY DIAGNOSTIC N/A 05/03/2018 Laterality: N/A; Surgeon: Steven Gardner MD; Location: [facility] [place] COLONOSCOPY FOR COLORECTAL CANCER SCREENING HIGH RISK INDIVIDUAL N/A 05/02/2018 Laterality: N/A; Surgeon: Rohit Rojas MD; Location: [facility] [place] LUNG BIOPSY 03/24 for lung nodule AMPUTATION FINGER OR HAND 2007 L 5th digit; chondrosarcoma HYSTERECTOMY, TOTAL ABDOMINAL 1996 ARM SURGERY 1995 fracture TONSILLECTOMY 1975 HYSTERECTOMY ~1995 OOPHORECTOMY Bilateral ~1995 Past Family History Family History Problem Relation Age of Onset Diabetes Mother Hypertension Mother Other - Specify Mother alzheimers Hemachromatosis Father Other - Specify Father disorder - "too much iron in blood" Other - Specify Sister Chronic lung disease Aneurysm Brother Cancer- Other Paternal Uncle lymphoma Other - Specify Paternal Grandmother TB Diabetes Paternal Grandfather Other - Specify Son son of heart defect Heart Failure Son Bleeding or Clotting Problems Son Platelet storage pool deficiency Other - Specify Son severe allergies Other - Specify Cousin multiple myeloma Bleeding or Clotting Problems Son Other - Specify Sister Bleeding or Clotting Problems Son Other - Specify Son Other - Specify Son Bleeding or Clotting Problems Son Other - Specify Son Other - Specify Sister Colorectal Cancer Neg Hx Breast Cancer Neg Hx Ovarian Cancer Neg Hx Uterine Cancer Neg Hx Mental Illness Neg Hx Addiction Neg Hx Dementia Neg Hx Allergies Allergies Allergen Reactions Albuterol Shortness of Breath, Anxiety, Palpitations and Tachycardia MDI albuterol intolerance. Previous tolerance of nebulized albuterol. Azithromycin Anaphylaxis Other reaction(s): Anaphylaxis, AOF Current Medications Current Outpatient Medications Medication Sig CUSTOM MEDICATION Lung Flush CUSTOM MEDICATION [place]lein supplement daily multivitamin tablet Misc Natural Products (Sambucus Elderberry Immune) Chew Tab Chew 2 Pieces of gum daily. 2 in the morning, 1 at night Mometasone Furo-Formoterol Fum (Dulera) 100-5 MCG/ACT Aerosol Inhale 2 puffs every 12 hours. Ondansetron 4 MG Tab Dispersible tablet Take 1 tablet by mouth every 8 hours as needed for Nausea / Vomiting. Tizanidine 2 MG tablet Take 1 tablet by mouth 3 times daily as needed for Muscle spasms. DISABILITY PLACARD Disability placard end date 11/09/2027 Ipratropium-albuterol 0.5-2.5 (3) MG/3ML nebulizer solution Take 3 mL by nebulization every 4 hours as needed for Wheezing, Respiratory Distress, Breathing Treatment, Cough or Shortness of Breath. Spacer/Aero-Holding Chambers ([place] Choice Holding Chamber) Device Spiriva Respimat 2.5 MCG/ACT Aero Soln inhaler INHALE 2 PUFFS DAILY. 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 Tobacco Use Smoking status: Every Day Current packs/day: 0.50 Average packs/day: 0.5 packs/day for 31.2 years (15.6 ttl pk-yrs) Types: Cigarettes Start date: 11/24/1991 Last attempt to quit: 11/23/2021 Passive exposure: Current Smokeless tobacco: Never Vaping Use Vaping status: Former Substance and Sexual Activity Alcohol use: No Comment: rare Drug use: Yes Types: Marijuana Comment: every day Sexual activity: Not Currently Partners: Male control/protection: Hysteroscopic Tubal Occlusion Social Drivers of Health Financial Resource Strain: Low Risk (10/30/2024) Overall Financial Resource Strain (CARDIA) Difficulty of Paying Living Expenses: Not hard at all Food Insecurity: No Food Insecurity (10/30/2024) Hunger Vital Sign Worried About Running Out of Food in the Last Year: Never true Ran Out of Food in the Last Year: Never true Transportation Needs: No Transportation Needs (10/30/2024) PRAPARE - Transportation Lack of Transportation (Medical): No Lack of Transportation (Non-Medical): No Physical Activity: Sufficiently Active (10/30/2024) Exercise Vital Sign Days of Exercise per Week: 7 days Minutes of Exercise per Session: 140 min Stress: No Stress Concern Present (10/30/2024) [place] [employer] - Occupational Stress Questionnaire Feeling of Stress : Only a little Social Connections: Moderately Integrated (10/30/2024) Social Connection and Isolation Panel [NHANES] Frequency of Communication with Friends and Family: More than three times a week Frequency of Social Gatherings with Friends and Family: More than three times a week Attends Hindu Services: More than 4 times per year Active Member of Clubs or Organizations: Yes Attends Club or Organization Meetings: More than 4 times per year Marital Status: Personal Safety: Not At Risk (10/29/2023) Humiliation, Afraid, Rape, and Kick questionnaire Fear of Current or Ex-Partner: No Emotionally Abused: No Physically Abused: No Sexually Abused: No Housing Stability: Low Risk (10/30/2024) Housing Stability Vital Sign Unable to Pay for Housing in the Last Year: No Number of Times Moved in the Last Year: 0 Homeless in the Last Year: No Health Maintenance Topic Date Due ZOSTER (SHINGLES) VACCINE (1 of 2) Never done RSV VACCINE (1 - Risk 60-74 years 1-dose series) Never done COLONOSCOPY 05/03/2021 MAMMOGRAM SCREENING DISCUSSION 01/10/2024 COVID-19 VACCINE (3 - season) 2024 PREVENTATIVE HEALTH VISIT 10/28/2024 INFLUENZA VACCINE (1) 03/16/2025 TETANUS 04/05/2025 PNEUMOCOCCAL VACCINE SERIES (3 of 3 - PCV20 or PCV21) 2026 LIPID SCREENING 10/28/2028 TDAP (ADULT) Completed HEPATITIS C VIRUS SCREENING Completed HIV SCREENING DISCUSSION Addressed HEP B VACCINE Aged Out CERVICAL CANCER SCREENING DISCUSSION Discontinued PNEUMOCOCCAL VACCINE SERIES Discontinued COLORECTAL CANCER SCREENING DISCUSSION Discontinued PHQ9 Depression Screenin10/30/2024 8:19 AM 10/30/2024 8:18 AM 02/04/2024 10:47 AM PHQ 9 Depression Scale Little interest or pleasure in doing things Not at all Not at all Not at all Feeling down, depressed, or hopeless Not at all Not at all Not at all PHQ2/9 Total Score 0 0 0 Patient-reported GAD7 Anxiety Screen 10/30/2024 8:18 AM 10/29/2023 9:28 AM 09/22/2021 11:10 AM JACOB 7 Anxiety Screen Feeling nervous, anxious or on edge Not at all Not at all More than half the days Not being able to stop or control worrying Not at all Not at all Several days Worrying too much about different things Not at all Not at all Several days Trouble relaxing Not at all Not at all Several days Being so restless that it is hard to sit still Not at all Not at all Several days Becoming easily annoyed or irritable Not at all Not at all Not at all Feeling afraid as if something awful might happen Not at all Not at all Not at all JACOB-7 Total Score 0 0 6 If you checked off any problems, how difficult have these problems made it for you to do your work, take care of things at home, or get along with other people? Not difficult at all Not difficult at all Not difficult at all Patient-reported Menstrual/Breast History No LMP recorded. Patient has had a hysterectomy. No results found for: "PAPSMEAR" Obstetric History OB History 6 Para 6 Term 6 0 AB 0 Living 5 SAB IAB Ectopic Molar Multiple Live Births 6 Review of Systems Review of Systems Constitutional: Negative. HENT: Negative. Eyes: Negative. Respiratory: Positive for cough (Intermittent). Cardiovascular: Positive for chest pain (Intermittent rib pain with coughing). Gastrointestinal: Positive for nausea (intermittent). Endocrine: Negative. Genitourinary: Negative. Musculoskeletal: Negative. Skin: Negative. Allergic/Immunologic: Negative. Neurological: Negative. Hematological: Negative. Psychiatric/Behavioral: Negative. Physical Exam Blood pressure 115/74, pulse 83, temperature 97.1 F (36.2 C), temperature source Temporal, resp. rate 16, height 1.626 m (5' 4"), weight 42.5 kg (93 lb 9.6 oz), not currently . Wt Readings from Last 3 Encounters: 01/22/25 42.5 kg (93 lb 9.6 oz) 10/27/24 43.1 kg (95 lb) 04/25/24 44 kg (97 lb) Body mass index is 16.07 kg/m . Physical Exam Vitals reviewed. Constitutional: Appearance: She is well-developed, well-groomed and underweight. HENT: Head: Normocephalic and atraumatic. Right Ear: Hearing, tympanic membrane, ear canal and external ear normal. Left Ear: Hearing, tympanic membrane, ear canal and external ear normal. Nose: Nose normal. Mouth/Throat: Lips: [place]. Mouth: Mucous membranes are moist. Eyes: General: Lids are normal. Extraocular Movements: Extraocular movements intact. Conjunctiva/sclera: Conjunctivae normal. Pupils: Pupils are equal, round, and reactive to light. Neck: Thyroid: No thyromegaly. Cardiovascular: Rate and Rhythm: Normal rate and regular rhythm. Pulses: Normal pulses. Radial pulses are 2+ on the right side and 2+ on the left side. Heart sounds: Normal heart sounds, S1 normal and S2 normal. Pulmonary: Effort: Pulmonary effort is normal. Breath sounds: Normal breath sounds and air entry. Abdominal: General: Abdomen is flat. Palpations: Abdomen is soft. Tenderness: There is no abdominal tenderness. Musculoskeletal: Cervical back: Normal range of motion. Right lower leg: No edema. Left lower leg: No edema. Lymphadenopathy: Cervical: No cervical adenopathy. Skin: General: Skin is warm and dry. Neurological: General: No focal deficit present. Mental Status: She is alert and oriented to person, place, and time. Cranial Nerves: Cranial nerves 2-12 are intact. Sensory: Sensation is intact. Motor: Motor function is intact. Psychiatric: Attention and Perception: Attention normal. Mood and Affect: Mood normal. Speech: Speech normal. Behavior: Behavior normal. Behavior is cooperative. Thought Content: Thought content normal. Assessment and Plan Assessment & Plan 1. Annual physical examination: Stable. - Vital signs within normal limits. No significant changes in personal medical or surgical history over the past year. - Advised to consider COVID-19, shingles, and RSV vaccines at pharmacy. - Colonoscopy recommended, last one in 2018. - Mammogram ordered. - Referral to supervisor slitting and shipping made. 2. Medication management. - Requested physical prescriptions for Dulera and Zofran as pharmacy did not receive electronic prescriptions sent in 10/2024. - Using Dulera 1 puff in the morning and occasionally 1 puff in the evening. Not using Spiriva. - Prescription for tizanidine provided. - Prescription for nebulizer solution ordered. 3. Nausea: Manageable. - Physical prescription for Zofran provided. - No vomiting reported. - Occasional nausea noted. 4. Smoking cessation. - Smoking almost a pack of cigarettes a day due to stress. Tobacco Cessation Plan: I provided tobacco cessation counseling. 5. Hearing issues. - Occasional hearing issues in left ear without pain or blockage. - If symptoms worsen or become more frequent, referral to vegetable loader for formal testing will be considered. 6. Cough-induced abdominal pressure. - Occasional tissue protrusion from intra-abdominal pressure when coughing, resolves upon manual reduction. - No significant pain or tenderness reported. - If areas do not retract or become painful, further evaluation necessary. Chin was seen today for physical and medication refill. Diagnoses and all orders for this visit: Encounter for annual physical exam Screening for depression - [place] BEHAV ASSMT W/SCORE & DOCD/STAND INSTRUMENT Panlobular emphysema - COMPREHENSIVE METABOLIC PANEL; Future - CBC, EDIF, PLATELET; Future - Mometasone Furo-Formoterol Fum (Dulera) 100-5 MCG/ACT Aerosol; Inhale 2 puffs every 12 hours. - Discontinue: Ipratropium-albuterol 0.5-2.5 (3) MG/3ML nebulizer solution; Take 3 mL by nebulization every 4 hours as needed for Wheezing, Respiratory Distress, Breathing Treatment, Cough or Shortness of Breath. Current smoker Screening for colon cancer - SCREENING COLONOSCOPY; Future Screening mammogram for breast cancer - MAMMO SCREENING WITH TERI BILATERAL; Future Screening for hyperlipidemia - LIPID PANEL W CALCULATED LDL; Future Vitamin D deficiency - VITAMIN D (25-HYDROXY,TOTAL); Future Nausea - TSH; Future - T4 FREE; Future - Ondansetron 4 MG Tab Dispersible tablet; Take 1 tablet by mouth every 8 hours as needed for Nausea / Vomiting. Healthcare maintenance - AMB REFERRAL TO OPTOMETRY Other orders - Tizanidine 2 MG tablet; Take 1 tablet by mouth 3 times daily as needed for Muscle spasms. Return in about 1 year (around 01/22/2026), or if symptoms worsen or fail to improve, for Physical. I discussed my impression and plan of care in detail with the patient. The risks and benefits of treatment were extensively explained to the patient, who clearly voiced understanding and agreement of the plan. The patient had the opportunity to ask all questions regarding their condition and I answered those questions to the best of my ability and to the patient s satisfaction. Patient advised to follow up with this clinic as recommended. However, reassurance was provided that in the interim, this office is always available to respond to questions, concerns and needs. Patient advised to call the office with any questions or concerns. STEVEN Cabrera Note to patient: The 21st Century Cures Act makes medical notes like these available to patients in the interest of transparency. However, be advised this is a medical document. It is intended as peer to peer communication. It is written in medical language and may contain abbreviations or verbiage that are unfamiliar. It may appear blunt or direct. Medical documents are intended to carry relevant information, facts as evident, and the clinical opinion of the practitioner. documented in this encounter [facility] 01-22-2025 Instructions STEVEN Cabrera - 01/22/2025 9:20 AM EDT Call one of the following locations to schedule your eye exam: [facility] ([address] / [phone]) [place] ([address] / [phone]) [place] ([address] / [phone]) documented in this encounter [facility] 05-27-2024 Note PROCEDURE: KNEE LEFT WITH OBLIQUES, 05/26/2024 8:00 AM EST CLINICAL INDICATIONS: Left knee pain. COMPARISON: None. TECHNIQUE: Left knee with obliques 4 views. FINDINGS: Generalized osteopenia of the bony structures is noted. There is mild medial femorotibial and patellofemoral osteoarthrosis. Acute osseous pathology is not evident. Prepatellar soft tissue swelling is seen. Opaque foreign body or gas collection is not evident. No knee effusion. IMPRESSION: 1. Severe prepatellar soft tissue swelling. Prepatellar bursitis or contusion considered. Opaque foreign body, gas collection, or knee effusion are not evident. 2. Mild medial femorotibial and patellofemoral osteoarthrosis. 3. Osteopenia, no acute osseous pathology. [facility] 02-04-2024 History of Present illness Narrative Orthopaedic Oncology Initial Office Visit Chief Complaint: Left thumb MCP joint pain. HPI: Chin Whiting is a 63 y.o. female referred to me by Dr. Gavin for evaluation of left thumb pain. She is status post left 5th finger/small finger ray resection performed in 2007 at [facility] by Dr. Arguelles for concern for cartilaginous neoplasm. She had concern for potential lung nodule, which was subsequently resected with biopsy negative for any malignancy. Her pathology did show evidence of a low-grade cartilage neoplasm and was not consistent with chondrosarcoma. She healed her incisions well and had been doing well since the surgery, however, about 4 months ago she developed volar left thumb MCP joint pain. Reports that there is some associated soft tissue swelling in that region as well. Reports that sometimes seh feels this area increases in size as well. She reports that sometimes she does wake up in the morning with the thumb having a "locked" sensation. She also reports a history of clicking as well. She does not appear to have similar symptoms in other fingers and on the contralateral hand. 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 Functional History: Occupation: Required, surveying technician Patient is ambulatory Social History: Patient lives at home with family Review of Symptoms: A complete review of systems has been completed and is negative except for what is noted in the HPI. 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 Chronic obstructive pulmonary disease (COPD) COVID-19 05/2021 Depression Heel fracture 03/21/2014 right heel Lung nodule s/p open lung biopsy, path benign Migraines Neck pain s/p cervical steroid injection Pneumonia 2002 Whooping cough Past Surgical History: Procedure Laterality Date COMPLETE EXTRACTION OF TEETH 08/26/2018 COLONOSCOPY DIAGNOSTIC N/A 05/03/2018 Laterality: N/A; Surgeon: Steven Gardner MD; Location: [facility] [place] COLONOSCOPY FOR COLORECTAL CANCER SCREENING HIGH RISK INDIVIDUAL N/A 05/02/2018 Laterality: N/A; Surgeon: Rohit Rojas MD; Location: [facility] [place] LUNG BIOPSY 03/24 for lung nodule AMPUTATION FINGER OR HAND 2007 L 5th digit; chondrosarcoma HYSTERECTOMY, TOTAL ABDOMINAL 1996 ARM SURGERY 1995 fracture TONSILLECTOMY 1975 HYSTERECTOMY ~1995 OOPHORECTOMY Bilateral ~1995 Allergies Allergen Reactions Albuterol Shortness of Breath, Anxiety, Palpitations and Tachycardia MDI albuterol intolerance. Previous tolerance of nebulized albuterol. Azithromycin Anaphylaxis Other reaction(s): Anaphylaxis, AOF Outpatient Medications Prior to Visit Medication Sig Dispense Refill Coenzyme Q-10 200 MG capsule daily multivitamin tablet DISABILITY PLACARD Disability placard end date 11/09/2027 1 Each 0 Dulera 100-5 MCG/ACT Aerosol inhale 2 puffs by mouth every 12 hours (Patient taking differently: Inhale 1 puff every 12 hours.) 13 g 1 Magnesium Oxide 500 MG tablet Take 1 tablet by mouth daily. 90 tablet 1 Misc Natural Products (Sambucus Elderberry Immune) Chew Tab Chew 2 Pieces of gum daily. 2 in the morning, 1 at night Nutritional Supplement Liquid Take 2 drops by mouth daily. [place] Menan with elderberry, dillon root, marshmallow root, orange peel Ondansetron 4 MG Tab Dispersible tablet Take 1 tablet by mouth every 8 hours as needed for Nausea / Vomiting. 90 tablet 3 Spacer/Aero-Holding Chambers ([place] Choice Holding Chamber) Device Spiriva Respimat 2.5 MCG/ACT Aero Soln inhaler INHALE 2 PUFFS DAILY. (Patient taking differently: Inhale 1 puff daily.) 4 g 3 Tizanidine 2 MG tablet as needed. Vitamin B-2 100 MG tablet calcium carbonate-vitamin D 600mg-400units 600-400 MG-UNIT tablet Take 1 tablet by mouth 2 times daily with meals. (Patient not taking: Reported on 01/08/2024) 60 tablet 11 fluticasone 50 MCG/ACT Suspension nasal spray INSTILL 1 SPRAY INTO EACH NOSTRIL ONCE DAILY (Patient not taking: Reported on 01/08/2024) 16 g 0 ipratropium-albuterol 0.5-2.5 (3) MG/3ML nebulizer solution Take 3 mL by nebulization every 4 hours as needed for Wheezing, Respiratory Distress, Breathing Treatment, Cough or Shortness of Breath. 3 mL 0 Rosuvastatin 10 MG tablet Take 1 tablet by mouth daily. 90 tablet 1 No facility-administered medications prior to visit. 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 Tobacco Use Smoking status: Every Day Current packs/day: 0.50 Average packs/day: 0.5 packs/day for 30.2 years (15.1 ttl pk-yrs) Types: Cigarettes Start date: 11/24/1991 Last attempt to quit: 11/23/2021 Passive exposure: Current Smokeless tobacco: Never Tobacco comments: Smoking about 10 cigarettes a day Vaping Use Vaping status: Former Substance and Sexual Activity Alcohol use: No Comment: rare Drug use: Yes Types: Marijuana Comment: every day Sexual activity: Not Currently Partners: Male control/protection: Hysteroscopic Tubal Occlusion Other Topics Concern Not on file Social History Narrative Not on file Social Determinants of Health Financial Resource Strain: Low Risk (10/29/2023) Overall Financial Resource Strain (CARDIA) Difficulty of Paying Living Expenses: Not hard at all Food Insecurity: No Food Insecurity (10/29/2023) Hunger Vital Sign Worried About Running Out of Food in the Last Year: Never true Ran Out of Food in the Last Year: Never true Transportation Needs: No Transportation Needs (10/29/2023) PRAPARE - Transportation Lack of Transportation (Medical): No Lack of Transportation (Non-Medical): No Physical Activity: Sufficiently Active (10/29/2023) Exercise Vital Sign Days of Exercise per Week: 6 days Minutes of Exercise per Session: 140 min Stress: No Stress Concern Present (10/29/2023) [place] [employer] - Occupational Stress Questionnaire Feeling of Stress : Not at all Social Connections: Moderately Isolated (10/29/2023) Social Connection and Isolation Panel [NHANES] Frequency of Communication with Friends and Family: More than three times a week Frequency of Social Gatherings with Friends and Family: More than three times a week Attends Hindu Services: More than 4 times per year Active Member of Clubs or Organizations: No Attends Club or Organization Meetings: Never Marital Status: Intimate Partner Violence: Not At Risk (10/29/2023) Humiliation, Afraid, Rape, and Kick questionnaire Fear of Current or Ex-Partner: No Emotionally Abused: No Physically Abused: No Sexually Abused: No Housing Stability: Low Risk (10/29/2023) Housing Stability Vital Sign Unable to Pay for Housing in the Last Year: No Number of Places Lived in the Last Year: 1 Unstable Housing in the Last Year: No Family History Problem Relation Age of Onset Diabetes Mother Hypertension Mother Other - Specify Mother alzheimers Hemachromatosis Father Other - Specify Father disorder - "too much iron in blood" Other - Specify Sister Chronic lung disease Aneurysm Brother Cancer- Other Paternal Uncle lymphoma Other - Specify Paternal Grandmother TB Diabetes Paternal Grandfather Other - Specify Son son of heart defect Heart Failure Son Bleeding or Clotting Problems Son Platelet storage pool deficiency Other - Specify Son severe allergies Other - Specify Cousin multiple myeloma Colorectal Cancer Neg Hx Breast Cancer Neg Hx Ovarian Cancer Neg Hx Uterine Cancer Neg Hx Mental Illness Neg Hx Addiction Neg Hx Dementia Neg Hx Physical Exam BP 131/71 (BP Location: Left arm, BP Position: Sitting) Pulse 88 Temp 98.1 F (36.7 C) (Oral) Resp 18 Ht 1.626 m (5' 4") Wt 43.4 kg (95 lb 9.6 oz) SpO2 97% BMI 16.41 kg/m Smoking Status Every Day Body mass index is 16.41 kg/m . General appearance: alert, cooperative, appears stated age Lungs: Non-labored, symmetric chest rise Extremities: Left small finger ray resection the incision appears to have healed well. No evidence of any bony prominences associated with the base of the metacarpal. Has tenderness to palpation about the volar aspect of the left thumb MCP joint. Some tenderness over the metacarpal shaft dorsal and volar as well. Some tenderness over the CMC joint of the 1st digit. Has few sensations over the radial and ulnar digital nerves of the left thumb. Probable swelling over the left thumb MCP joint. Increased as compared to the contralateral hand. Does have evidence of reproducible triggering and locking of the left thumb consistent with a potential trigger finger/trigger thumb. Imaging Review: I personally and independently reviewed and interpreted the following imaging studies. XR Left Hand/Thumb 01.07.2024: demonstrates a prior ray resection with resected remnant base of the metacarpal. There is no evidence of any cartilaginous matrix in the thumb and or other bones of the finger. Pathology: 06/30/2008: Surgical Pathology Report Patient Name: CHIN WHITING [facility]. Rec #: [id number] Submitting Physician: Ced Arguelles M.D. 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 Left Small Finger, amputation: - Low-Grade Cartilaginous Neoplasm. - Skin, Soft Tissue, and Bone Margins of Resection: negative for neoplasm. marcel/GEN05:07/02/2008 Electronically Signed By Cristian Palafox Jr., M.D. 07/02/2008 15:18:19 Impression/Plan: Chin Whiting is a very pleasant 63-year-old right-hand dominant female who is status post a ray resection of left small finger in the setting of low-grade cartilaginous neoplasm in 2007. She now has been having left volar thumb pain for the last 4 months. History and exam are consistent with trigger thumb. We discussed that this does not appear to be consistent with her prior diagnosis of a low-grade cartilaginous neoplasm. We discussed that it is unlikely based on the pathologic descriptiont hat this was ever a chondrosarcoma. We did recommend and place a referral to our Hand Surgery team to evaluate for treatment of her suspected trigger thumb. All of the patient's questions were answered and he expressed understanding of the plan. The patient was instructed to call should he experience worsening symptoms or have any issues/questions. We will see her back on an as needed basis. GEOVANNY Lora Orthopaedic Oncology Attending Attestation: I personally reviewed the history, examined the patient, and reviewed the radiographic imaging studies today with the resident. I discussed the findings and therapeutic plan with the resident and the patient. I personally reviewed and edited the above resident note and agree with the history, physical examination, imaging interpretation, and medical decisions as outlined in the resident's dictated note. Brad Whitaker MD [facility] [facility] Department of Orthopaedics Division of Musculoskeletal Oncology documented in this encounter [facility] 02-04-2024 Instructions Sara Dickinson RN - 02/04/2024 10:30 AM EDT Sara COOK, RN, OCN Musculoskeletal Oncology Outpatient clinic nurse for : MD Dr. Brad Mancera MD Dr. Joel Mayerson, MD [facility] Department of Orthopaedics 5th Floor, [address] [place] [address] (this number is covered by the answering service after hours, weekends and holidays) documented in this encounter [facility] 01-08-2024 History of Present illness Narrative This writer editor verified the patient's name and . Images from the original note were not included. Subjective is a 63 y.o. female who was seen at the [facility] for follow up of COPD. More SOB. Cough at baseline. Family stress ongoing- now at 10 cigs a day. Went tot ER today for left thumb swelling, previous history of sarcoma Patiently recently admitted from 11/09 to 11/11 for COPD exacerbation. At that time she was discharged on a prednisone course and inhalers. Following discharge she was unable to fill her Pulmicort, and had been having worsening shortness of breath. She presented to her PCP for hospital follow-up where she was found to have SpO2 of 87% and was recommended to come to the ED for evaluation. [facility] continued to endorse shortness of breath and required supplemental oxygen to maintain SpO2 over 88%. Patient was started on prednisone course and continued on home inhalers. Patient was able to be weaned to room air at rest, but required 1 L NC with exertion to maintain SpO2 greater than 88%. Patient did not endorse infectious symptoms, so no antibiotics were initiated. Plan for patient to complete 5 day prednisone course and discharge on Dulera twice a day, Spiriva once daily, and albuterol as needed. Activity level: 2 flight of stairs, 10 blocks on flat ground, continues to do household activity No complains of cough no hemoptysis No appetite or weight loss Recurrent history of bronchitis/ pneumonia- No Recurrent hospitalizations/ ER visits/ urgent care visits for bronchitis- No H/p orthopnea, pnd- none Smoking exposure- Active smoker, overall 40 pack years, quit for 2 months this year and then active again but now down to about 1-3 on a day average- now she said she has quit since the last week. 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 smoking Travel history- non significant Sick contacts- none Inhalers- Rescue inhalers- albuterol, used 1-2 times a month Oxygen requirements-3L on exertion mMRC score: 1 Grade Degree of breathlessness related to activities 0 Not troubled by breathlessness except on strenuous exercise 1 Short of breath when hurrying or walking up a slight hill 2 Walks slower than contemporaries on level ground because of breathlessness, or has to stop for breath when walking at own pace 3 Stops for breath after walking about 100m or after a few minutes on level ground 4 Too breathless to leave the house, or breathless when dressing or undressing Past Medical History She has a past medical history of Adenoid hypertrophy (05/2010), Back pain, Cardiac angina, Chondrosarcoma nos (1999), Chronic obstructive pulmonary disease (COPD), COVID-19 (05/2021), Depression, Heel fracture (03/21/2014), Lung nodule, Migraines, Neck pain, Pneumonia (2001), and Whooping cough. She has no past medical history of Exposure to hazardous chemical or History of radiation exposure. Past Surgical History has a past surgical history that includes tonsillectomy (1975); hysterectomy, total abdominal (1996); amputation finger or hand (2007); arm surgery (1995); lung biopsy (03/24); colonoscopy for colorectal cancer screening high risk individual (N/A, 05/02/2018); colonoscopy diagnostic (N/A, 05/03/2018); complete extraction of teeth (08/26/2018); oophorectomy (Bilateral, ~1995); and hysterectomy (~1995). Immunization History Administered Date(s) Administered [id number] COVID-19 monovalent vaccine (Moderna), 12yr+, 100mcg/0.5mL 10/27/2020, 11/23/2020 Dexamethasone Inj 11/10/2010 Influenza Vaccine, (RECOMB) Quadrivalent PF 06/21/2020, 03/31/2021 Influenza, injectable, quadrivalent, preservative free 05/15/2019, 05/29/2023 Lidocaine 1% Inj 11/10/2010 Pneumococcal Conjugate 13-valent vaccine 05/15/2019 Pneumococcal Polysac 23-Valent Vaccine 2021 Td Vaccine 5-2 Lf 12/14/2008 Tdap Vaccine 04/05/2015 Medications She has a current medication list which includes the following prescription(s): coenzyme q-10, daily multivitamin, DISABILITY PLACARD, dulera, sambucus elderberry immune, ondansetron, clever choice holding chamber, spiriva respimat, vitamin b-2, calcium carbonate-vitamin d 600mg-400units, fluticasone, ipratropium-albuterol, magnesium oxide -mg supplement, rosuvastatin, and tizanidine. Allergies She is allergic to albuterol and azithromycin. Family History family history includes Aneurysm in her brother; Bleeding or Clotting Problems in her son; Cancer- Other in her paternal uncle; Diabetes in her mother and paternal grandfather; Heart Failure in her son; Hemachromatosis in her father; Hypertension in her mother; Other - Specify in her cousin, father, mother, paternal grandmother, sister, son, and son. Social History Social History Social History Narrative Not on file She reports that she has been smoking cigarettes. She started smoking about 32 years ago. She has a 15.1 pack-year smoking history. She has been exposed to tobacco smoke. She has never used smokeless tobacco. She reports current drug use. Drug: Marijuana. She reports that she does not drink alcohol. Review of Systems A complete, 14-point review of systems was obtained per the patient interview and is globally negative except for what is described in the HPI or in the scanned, new patient intake sheet which was discussed with the patient. Physical Exam BP 118/78 (BP Location: Right arm, BP Position: Sitting) Pulse 79 Ht 1.6 m (5' 3") Wt 42.6 kg (94 lb 0.3 oz) SpO2 95% BMI 16.65 kg/m Smoking Status Every Day Body mass index is 16.65 kg/m . GENERAL: Alert, oriented and in no acute distress. HEENT: EYES: Pupils equal, round and reactive, extraocular muscles intact. Nose: membranes clear, no polyps. EARS: Tympanic membranes are clear. MOUTH: moist and pink with no exudates. Mallampati class 2. NECK: is supple, no thyromegaly. No stridor. HEART: regular rate and rhythm. No murmurs, rubs or gallops. LUNGS: Clear to auscultation bilaterally. No wheezing, rhonchi or rales. No dullness to percussion. ABDOMEN: Positive bowel sounds, soft, nontender, nondistended. EXTREMITIES: No cyanosis, clubbing or edema. NEURO: grossly intact. Normal affect. Gait normal. SKIN: warm and dry, no obvious rashes. Diagnostic Review CBC Lab Results Component Value Date WBC 8.17 10/29/2023 HGB 15.1 10/29/2023 HCT 47.1 (H) 10/29/2023 PLATELET 228 10/29/2023 MCV 93.1 10/29/2023 EDIF Lab Results Component Value Date RBCDISTRIBU 12.9 10/29/2023 GRNLOCYT 59.2 10/29/2023 LYMPHOCYT 31.2 10/29/2023 MONOCYTELEC 7.5 10/29/2023 EOSINOPHILS 1.5 10/29/2023 BASOPHILS 0.2 10/29/2023 GRNLOCTYABS 5.9 03/23/2010 LYMPHOCYTABS 2.55 10/29/2023 MONOSABSOLU 0.5 03/23/2010 EOSINOPHLABS 0.12 10/29/2023 BASOPHILSABS 0.0 03/23/2010 PLATELET 228 10/29/2023 MPV 10.7 10/29/2023 Lab Results Component Value Date ALT 26 10/29/2023 AST 27 10/29/2023 ALKPHOS 76 10/29/2023 BILITOTAL 0.3 10/29/2023 BILIDIRECT 0.1 02/13/2012 Lab Results Component Value Date SODIUM 138 10/29/2023 POTASSIUM 5.0 10/29/2023 CHLORIDE 104 10/29/2023 CO2 29 10/29/2023 BUN 14 10/29/2023 CREATSERUM 0.84 10/29/2023 GLUCOSE 148 (H) 10/29/2023 Ct 02/2023 A lobulated medial right lower lobe nodule without significant PET activity on January 17, 2022 has slightly increased in size over multiple studies measuring 1.1 x 0.6 x 0.9 cm previously 0.8 x 0.6 x 0.9 cm on February 22, 2022, (VDT 523 days suggesting benign etiology, series 3 image 205 and series 6 image 37). CT chest:12/2021 Pleural parenchymal scarring in the apices. Emphysema. Left upper lobe wedge or section. Lobular nodule in the azygos esophageal recess of the right lower lobe measures 0.6 x 0.8 cm, previously 0.6 x 0.7 cm although this measurement has not significantly changed, this nodule has grown slowly over time since April 2018 when it was first seen. PET: 1) Lobular nodule in the right lower lobe does not demonstrate metabolic activity, nonspecific. A right lower lobe groundglass nodule with central cavitation more laterally demonstrates faint to mild metabolic activity, indeterminate. Recommend close attention on follow-up to rule out a progressive process. 2. Nodular consolidation in the apical left upper lobe is new since prior CT chest and demonstrates focal moderate to intense metabolic activity. Query infectious/inflammatory etiology. Attention on follow-up. 06/13/2018 01/17/2022 01/08/2024 Pulmonary Function Test FVC-Pre 3.28 Liters 2.55 Liters 2.94 Liters FVC-%Pred-Pre 99 % 79 % 104 % FEV1/FVC-Pre 58 % 41 % 0.41 % FEV1-%Pred-Pre 74 % 41 % 54 % FEV1-Pre 1.9 Liters 1.04 Liters 1.21 Liters TLCPleth-%Pred-Pre 125 % 134 % 130 % TLCPleth-Pre 6.27 Liters 6.69 Liters 6.45 Liters DLCOcor-%Pred-Pre 92 % 61 % 57 % DLCOunc-Pre 17.75 mL/mmHg/min 11.43 mL/mmHg/min 12.09 mL/mmHg/min OXYGEN TITRATION Placed on 2LPM NC @1min. 6 LPM @2min. 10 LPM @ 3 min. 15 LPM @ 4min. and for duration of testing. Assessment and Plan: Chin was seen today for new patient. Diagnoses and all orders for this visit: COPD- Centrilobular emphysema Active Smoker- half a pack day RLL nodule- needs immediate imaging S/p Left lung lower lobe wedge resection- for suspected nodule ( benign on biopsy) Previous left hand sarcoma ins/p left little finger resection about 20 year ago - Oxygen prescribed - PET: the RLL nodule- does not have metabolic activity/ however mild metabolic activity noted in nodular lesion in DARRYL and RLL GGO. Needs RPT CT chest - Smoking cessation counseling: Nicotine Patches; Informed patient that she is progressively getting worse and she may still have some surgical options if she stops smoking - Tiotropium (SPIRIVA HANDIHALER) 18 MCG inhalation capsule; Inhale 1 capsule daily - Dulera - Albuterol prn - seen in ER today for left thumb swelling. Oncology referral given. Kamini Allen [employer] Pulmonary and Critical Care Medicine Pager [phone] documented in this encounter [facility] 01-08-2024 Emergency department Note ED ATTENDING NOTE CHIEF COMPLAINT Chief Complaint Patient presents with Hand Swelling HPI Chin Whiting is a 63 y.o. 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 No additional complaints Review of Systems Positive for: Thumb pain Negative for: Trauma, weakness, numbness, fever PHYSICAL EXAM VITAL SIGNS:BP 116/67 Pulse 81 Temp 98 F (36.7 C) (Oral) Resp 16 Ht 1.6 m (5' 3") SpO2 94% BMI 17.32 kg/m Smoking Status Every Day Gen: Awake and alert. In NAD CV: Normal rate, regular rhythm. No cyanosis Pulm: Normal rate and WOB. No stridor Neuro: Awake and alert.CN 2-12 grossly intact. Moving all 4 extremities symmetrically and with purpose. MSK: Status post surgical remover of the lateral aspect of the left hand and 5th digit. There is tender swelling at the distal aspect of the left 1st metacarpal. Skin: No rashes/lesions. Warm and Dry Psych: Good eye contact. Normal mood and affect Medical Decision Making This is a 63-year-old female with history of sarcoma of the left hand who presents here today for recurrent symptoms at the base of the left thumb. Vitals reassuring and exam is overall benign and remarkable only for swelling at the base of the left thumb. Plain films show soft tissue swelling but no obvious osseous abnormalities Overall, patient's primary concern for was reestablishing care. We have provided referral to the diagnostic Oncology Clinic as recurrence of her cancer is certainly possible. Low suspicions for infectious etiologies. The gouty arthritis is possible as well. Patient was discharged home. Return precautions provided. Amount and/or Complexity of Data Reviewed External Data Reviewed: notes. Details: Previous hospital notes reviewed Radiology: ordered and independent interpretation performed. Decision-making details documented in ED Course. Impression: Thumb swelling History of hand sarcoma On 01/08/2024 I saw and examined the patient. I discussed the history and physical examination with the resident and agree with the emergency department plan of care and patient disposition. Part of this documentation was created with voice recognition software and errors may have occurred. Jyoti Gavin MD 01/08/24 1762 dEPARTMENT of Emergency Medicine CHIEF COMPLAINT Hand Swelling HPI Chin Whiting is a 63 y.o. 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 Patient states that she has had swelling of the left thumb base for approximately 1 month. Symptoms have been progressive and gradually increasing in size during this timeframe. She does state that her thumb occasionally feels like it is stuck." She does endorse some mild pain in the area. No recent trauma or injury to the affected hand. No recent open wounds. No fevers or drainage. Patient is right-hand dominant. Patient does state that the symptoms she is currently experiencing in her left thumb are almost identical to the symptoms that she experienced with her left 5th digit chondrosarcoma. She is significantly concern for recurrence of disease. 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 Chronic obstructive pulmonary disease (COPD) COVID-19 05/2021 Depression Heel fracture 03/21/2014 right heel Lung nodule s/p open lung biopsy, path benign Migraines Neck pain s/p cervical steroid injection Pneumonia 2002 Whooping cough SURGICAL HISTORY Past Surgical History: Procedure Laterality Date COMPLETE EXTRACTION OF TEETH 08/26/2018 COLONOSCOPY DIAGNOSTIC N/A 05/03/2018 Laterality: N/A; Surgeon: Steven Gardner MD; Location: [facility] [place] COLONOSCOPY FOR COLORECTAL CANCER SCREENING HIGH RISK INDIVIDUAL N/A 05/02/2018 Laterality: N/A; Surgeon: Rohit Rojas MD; Location: [facility] [place] LUNG BIOPSY 03/24 for lung nodule AMPUTATION FINGER OR HAND 2007 L 5th digit; chondrosarcoma HYSTERECTOMY, TOTAL ABDOMINAL 1996 ARM SURGERY 1995 fracture TONSILLECTOMY 1975 HYSTERECTOMY ~1995 OOPHORECTOMY Bilateral ~1995 CURRENT MEDICATIONS No current facility-administered medications for this encounter. Current Outpatient Medications Medication Sig Dispense Refill calcium carbonate-vitamin D 600mg-400units 600-400 MG-UNIT tablet Take 1 tablet by mouth 2 times daily with meals. 60 tablet 11 Coenzyme Q-10 200 MG capsule daily multivitamin tablet DISABILITY PLACARD Disability placard end date 11/09/2027 1 Each 0 Dulera 100-5 MCG/ACT Aerosol inhale 2 puffs by mouth every 12 hours 13 g 1 fluticasone 50 MCG/ACT Suspension nasal spray INSTILL 1 SPRAY INTO EACH NOSTRIL ONCE DAILY 16 g 0 ipratropium-albuterol 0.5-2.5 (3) MG/3ML nebulizer solution Take 3 mL by nebulization every 4 hours as needed for Wheezing, Respiratory Distress, Breathing Treatment, Cough or Shortness of Breath. 3 mL 0 Magnesium Oxide 500 MG tablet Take 1 tablet by mouth daily. 90 tablet 1 Mucinex 600 MG Tab SR 12 HR tablet SR Ondansetron 4 MG Tab Dispersible tablet Take 1 tablet by mouth every 8 hours as needed for Nausea / Vomiting. 90 tablet 3 Rosuvastatin 10 MG tablet Take 1 tablet by mouth daily. 90 tablet 1 Spacer/Aero-Holding Chambers (Wilmot Choice Holding Chamber) Device Spiriva Respimat 2.5 MCG/ACT Aero Soln inhaler INHALE 2 PUFFS DAILY. 4 g 3 Tizanidine 2 MG tablet Vitamin B-2 100 MG tablet ALLERGIES Allergies Allergen Reactions Albuterol Shortness of Breath, Anxiety, Palpitations and Tachycardia MDI albuterol intolerance. Previous tolerance of nebulized albuterol. Azithromycin Anaphylaxis Other reaction(s): Anaphylaxis, AOF FAMILY HISTORY Family History Problem Relation Age of Onset Diabetes Mother Hypertension Mother Other - Specify Mother alzheimers Hemachromatosis Father Other - Specify Father disorder - "too much iron in blood" Other - Specify Sister Chronic lung disease Aneurysm Brother Cancer- Other Paternal Uncle lymphoma Other - Specify Paternal Grandmother TB Diabetes Paternal Grandfather Other - Specify Son son of heart defect Heart Failure Son Bleeding or Clotting Problems Son Platelet storage pool deficiency Other - Specify Son severe allergies Other - Specify Cousin multiple myeloma Colorectal Cancer Neg Hx Breast Cancer Neg Hx Ovarian Cancer Neg Hx Uterine Cancer Neg Hx Mental Illness Neg Hx Addiction Neg Hx Dementia Neg Hx SOCIAL HISTORY 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 Tobacco Use Smoking status: Every Day Current packs/day: 0.50 Average packs/day: 0.5 packs/day for 30.1 years (15.1 ttl pk-yrs) Types: Cigarettes Start date: 11/24/1991 Last attempt to quit: 11/23/2021 Passive exposure: Current Smokeless tobacco: Never Tobacco comments: Smoking about 10 cigarettes a day Vaping Use Vaping status: Former Substance and Sexual Activity Alcohol use: No Comment: rare Drug use: Yes Types: Marijuana Comment: every day Sexual activity: Not Currently Partners: Male control/protection: Hysteroscopic Tubal Occlusion Other Topics Concern Not on file Social History Narrative Not on file Social Determinants of Health Financial Resource Strain: Low Risk (10/29/2023) Overall Financial Resource Strain (CARDIA) Difficulty of Paying Living Expenses: Not hard at all Food Insecurity: No Food Insecurity (10/29/2023) Hunger Vital Sign Worried About Running Out of Food in the Last Year: Never true Ran Out of Food in the Last Year: Never true Transportation Needs: No Transportation Needs (10/29/2023) PRAPARE - Transportation Lack of Transportation (Medical): No Lack of Transportation (Non-Medical): No Physical Activity: Sufficiently Active (10/29/2023) Exercise Vital Sign Days of Exercise per Week: 6 days Minutes of Exercise per Session: 140 min Stress: No Stress Concern Present (10/29/2023) [employer] [place] [employer] - Occupational Stress Questionnaire Feeling of Stress : Not at all Social Connections: Moderately Isolated (10/29/2023) Social Connection and Isolation Panel [NHANES] Frequency of Communication with Friends and Family: More than three times a week Frequency of Social Gatherings with Friends and Family: More than three times a week Attends Hindu Services: More than 4 times per year Active Member of Clubs or Organizations: No Attends Club or Organization Meetings: Never Marital Status: Intimate Partner Violence: Not At Risk (10/29/2023) Humiliation, Afraid, Rape, and Kick questionnaire Fear of Current or Ex-Partner: No Emotionally Abused: No Physically Abused: No Sexually Abused: No Housing Stability: Low Risk (10/29/2023) Housing Stability Vital Sign Unable to Pay for Housing in the Last Year: No Number of Places Lived in the Last Year: 1 Unstable Housing in the Last Year: No PHYSICAL EXAM BP 116/67 Pulse 81 Temp 98 F (36.7 C) (Oral) Resp 16 Ht 1.6 m (5' 3") SpO2 94% BMI 17.32 kg/m Smoking Status Every Day Physical Exam Vitals and nursing note reviewed. Constitutional: General: She is not in acute distress. Appearance: Normal appearance. She is normal weight. She is not toxic-appearing. HENT: Nose: Nose normal. Mouth/Throat: Mouth: Mucous membranes are moist. Pharynx: Oropharynx is clear. Eyes: Extraocular Movements: Extraocular movements intact. Conjunctiva/sclera: Conjunctivae normal. Pupils: Pupils are equal, round, and reactive to light. Cardiovascular: Rate and Rhythm: Normal rate and regular rhythm. Pulses: Normal pulses. Heart sounds: Normal heart sounds. Pulmonary: Effort: Pulmonary effort is normal. Breath sounds: Normal breath sounds. Abdominal: General: Abdomen is flat. Bowel sounds are normal. Palpations: Abdomen is soft. Musculoskeletal: General: Swelling and deformity present. Normal range of motion. Cervical back: Normal range of motion and neck supple. Comments: Swelling base of the left thumb. Full range of motion. Mild crepitus with extension of the DIP joint. Status post left 5th digit amputation. No overlying erythema, drainage, wounds. Skin: General: Skin is warm and dry. Findings: No erythema, lesion or rash. Neurological: General: No focal deficit present. Mental Status: She is alert and oriented to person, place, and time. Mental status is at baseline. Psychiatric: Mood and Affect: Mood normal. Behavior: Behavior normal. ED COURSE & MEDICAL DECISION MAKING Chin Whiting is a 63 y.o. 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 Differential diagnosis includes arthritis, fracture, recurrence of chondrosarcoma. I did also consider joint effusion and septic arthritis but the patient is afebrile, the joint is without erythema, warmth, and there was no drainage from the area so I have low suspicion for this. Patient was awake, alert, and nontoxic appearing on initial evaluation. Vital Signs hemodynamically stable. Abdominal thermic. Exam notable for swelling at the base of the left thumb. Otherwise, left hand is neurovascularly intact with full range of motion. No overlying erythema or area of fluctuance. No wounds or drainage. The patient did state that she was hoping to leave the emergency department in an expedited fashion as she does have a pulmonology appointment later this afternoon. For this reason, I discussed potential options in terms of workup with the patient and ultimately we agreed to obtain x-rays of the affected area for rapid evaluation. I did explain to the patient that this would not be definitive in terms of diagnosis and would just provide initial evaluation of her symptoms. Patient was agreeable with this plan and understood the limited evaluation sad plane films with provide. X-rays of the left hand and left thumb were obtained and demonstrated soft tissue swelling but no osseous abnormality. Patient was subsequently discharged with referral to diagnostic oncology for further evaluation and management. Impression: Left thumb swelling Disposition: Discharge Medical Decision Making Amount and/or Complexity of Data Reviewed Radiology: ordered. Trung Tan MD Resident 01/08/24 1715 Pt arrives for cc of stiffness in left thumb for the past month. Pt has hx of cartilage cancer that she believes has returned to the digit. GCS 15 and VSS. documented in this encounter [facility] 01-08-2024 Physician Emergency department Note ED ATTENDING NOTE CHIEF COMPLAINT Chief Complaint Patient presents with Hand Swelling HPI Chin Whiting is a 63 y.o. 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 No additional complaints Review of Systems Positive for: Thumb pain Negative for: Trauma, weakness, numbness, fever PHYSICAL EXAM VITAL SIGNS:BP 116/67 Pulse 81 Temp 98 F (36.7 C) (Oral) Resp 16 Ht 1.6 m (5' 3") SpO2 94% BMI 17.32 kg/m Smoking Status Every Day Gen: Awake and alert. In NAD CV: Normal rate, regular rhythm. No cyanosis Pulm: Normal rate and WOB. No stridor Neuro: Awake and alert.CN 2-12 grossly intact. Moving all 4 extremities symmetrically and with purpose. MSK: Status post surgical remover of the lateral aspect of the left hand and 5th digit. There is tender swelling at the distal aspect of the left 1st metacarpal. Skin: No rashes/lesions. Warm and Dry Psych: Good eye contact. Normal mood and affect Medical Decision Making This is a 63-year-old female with history of sarcoma of the left hand who presents here today for recurrent symptoms at the base of the left thumb. Vitals reassuring and exam is overall benign and remarkable only for swelling at the base of the left thumb. Plain films show soft tissue swelling but no obvious osseous abnormalities Overall, patient's primary concern for was reestablishing care. We have provided referral to the diagnostic Oncology Clinic as recurrence of her cancer is certainly possible. Low suspicions for infectious etiologies. The gouty arthritis is possible as well. Patient was discharged home. Return precautions provided. Amount and/or Complexity of Data Reviewed External Data Reviewed: notes. Details: Previous hospital notes reviewed Radiology: ordered and independent interpretation performed. Decision-making details documented in ED Course. Impression: Thumb swelling History of hand sarcoma On 01/08/2024 I saw and examined the patient. I discussed the history and physical examination with the resident and agree with the emergency department plan of care and patient disposition. Part of this documentation was created with voice recognition software and errors may have occurred. Jyoti Gavin MD 01/08/[id number] [facility] Work Phone: 01-08-2024 Hospital Discharge instructions Trung Tan MD - 01/08/2024 2:39 PM EDT You were seen in the emergency department due to left thumb swelling. You had x-rays performed results can be seen below. You were provided with a referral to the diagnostic oncology clinic for further workup. Please return to the emergency department if you develop high fevers, severe pain, numbness or tingling. Please follow-up with your primary care physician and appropriate specialist. XR THUMB LEFT 2+ VIEWS Final Result IMPRESSION: Soft tissue swelling. No acute osseous abnormality. HAND LEFT 3+ VIEWS Final Result IMPRESSION: Soft tissue swelling. No acute osseous abnormality. documented in this encounter [facility] 01-08-2024 Physician Emergency department Note dEPARTMENT of Emergency Medicine CHIEF COMPLAINT Hand Swelling HPI Chin Whiting is a 63 y.o. 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 Patient states that she has had swelling of the left thumb base for approximately 1 month. Symptoms have been progressive and gradually increasing in size during this timeframe. She does state that her thumb occasionally feels like it is stuck." She does endorse some mild pain in the area. No recent trauma or injury to the affected hand. No recent open wounds. No fevers or drainage. Patient is right-hand dominant. Patient does state that the symptoms she is currently experiencing in her left thumb are almost identical to the symptoms that she experienced with her left 5th digit chondrosarcoma. She is significantly concern for recurrence of disease. 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 Chronic obstructive pulmonary disease (COPD) COVID-19 05/2021 Depression Heel fracture 03/21/2014 right heel Lung nodule s/p open lung biopsy, path benign Migraines Neck pain s/p cervical steroid injection Pneumonia 2002 Whooping cough SURGICAL HISTORY Past Surgical History: Procedure Laterality Date COMPLETE EXTRACTION OF TEETH 08/26/2018 COLONOSCOPY DIAGNOSTIC N/A 05/03/2018 Laterality: N/A; Surgeon: Steven Gardner MD; Location: [facility] [place] COLONOSCOPY FOR COLORECTAL CANCER SCREENING HIGH RISK INDIVIDUAL N/A 05/02/2018 Laterality: N/A; Surgeon: Rohit Rojas MD; Location: [facility] [place] LUNG BIOPSY 03/24 for lung nodule AMPUTATION FINGER OR HAND 2007 L 5th digit; chondrosarcoma HYSTERECTOMY, TOTAL ABDOMINAL 1996 ARM SURGERY 1995 fracture TONSILLECTOMY 1975 HYSTERECTOMY ~1995 OOPHORECTOMY Bilateral ~1995 CURRENT MEDICATIONS No current facility-administered medications for this encounter. Current Outpatient Medications Medication Sig Dispense Refill calcium carbonate-vitamin D 600mg-400units 600-400 MG-UNIT tablet Take 1 tablet by mouth 2 times daily with meals. 60 tablet 11 Coenzyme Q-10 200 MG capsule daily multivitamin tablet DISABILITY PLACARD Disability placard end date 11/09/2027 1 Each 0 Dulera 100-5 MCG/ACT Aerosol inhale 2 puffs by mouth every 12 hours 13 g 1 fluticasone 50 MCG/ACT Suspension nasal spray INSTILL 1 SPRAY INTO EACH NOSTRIL ONCE DAILY 16 g 0 ipratropium-albuterol 0.5-2.5 (3) MG/3ML nebulizer solution Take 3 mL by nebulization every 4 hours as needed for Wheezing, Respiratory Distress, Breathing Treatment, Cough or Shortness of Breath. 3 mL 0 Magnesium Oxide 500 MG tablet Take 1 tablet by mouth daily. 90 tablet 1 Mucinex 600 MG Tab SR 12 HR tablet SR Ondansetron 4 MG Tab Dispersible tablet Take 1 tablet by mouth every 8 hours as needed for Nausea / Vomiting. 90 tablet 3 Rosuvastatin 10 MG tablet Take 1 tablet by mouth daily. 90 tablet 1 Spacer/Aero-Holding Chambers ([place] Choice Holding Chamber) Device Spiriva Respimat 2.5 MCG/ACT Aero Soln inhaler INHALE 2 PUFFS DAILY. 4 g 3 Tizanidine 2 MG tablet Vitamin B-2 100 MG tablet ALLERGIES Allergies Allergen Reactions Albuterol Shortness of Breath, Anxiety, Palpitations and Tachycardia MDI albuterol intolerance. Previous tolerance of nebulized albuterol. Azithromycin Anaphylaxis Other reaction(s): Anaphylaxis, AOF FAMILY HISTORY Family History Problem Relation Age of Onset Diabetes Mother Hypertension Mother Other - Specify Mother alzheimers Hemachromatosis Father Other - Specify Father disorder - "too much iron in blood" Other - Specify Sister Chronic lung disease Aneurysm Brother Cancer- Other Paternal Uncle lymphoma Other - Specify Paternal Grandmother TB Diabetes Paternal Grandfather Other - Specify Son son of heart defect Heart Failure Son Bleeding or Clotting Problems Son Platelet storage pool deficiency Other - Specify Son severe allergies Other - Specify Cousin multiple myeloma Colorectal Cancer Neg Hx Breast Cancer Neg Hx Ovarian Cancer Neg Hx Uterine Cancer Neg Hx Mental Illness Neg Hx Addiction Neg Hx Dementia Neg Hx SOCIAL HISTORY 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 Tobacco Use Smoking status: Every Day Current packs/day: 0.50 Average packs/day: 0.5 packs/day for 30.1 years (15.1 ttl pk-yrs) Types: Cigarettes Start date: 11/24/1991 Last attempt to quit: 11/23/2021 Passive exposure: Current Smokeless tobacco: Never Tobacco comments: Smoking about 10 cigarettes a day Vaping Use Vaping status: Former Substance and Sexual Activity Alcohol use: No Comment: rare Drug use: Yes Types: Marijuana Comment: every day Sexual activity: Not Currently Partners: Male control/protection: Hysteroscopic Tubal Occlusion Other Topics Concern Not on file Social History Narrative Not on file Social Determinants of Health Financial Resource Strain: Low Risk (10/29/2023) Overall Financial Resource Strain (CARDIA) Difficulty of Paying Living Expenses: Not hard at all Food Insecurity: No Food Insecurity (10/29/2023) Hunger Vital Sign Worried About Running Out of Food in the Last Year: Never true Ran Out of Food in the Last Year: Never true Transportation Needs: No Transportation Needs (10/29/2023) PRAPARE - Transportation Lack of Transportation (Medical): No Lack of Transportation (Non-Medical): No Physical Activity: Sufficiently Active (10/29/2023) Exercise Vital Sign Days of Exercise per Week: 6 days Minutes of Exercise per Session: 140 min Stress: No Stress Concern Present (10/29/2023) [employer] [place] [employer] - Occupational Stress Questionnaire Feeling of Stress : Not at all Social Connections: Moderately Isolated (10/29/2023) Social Connection and Isolation Panel [NHANES] Frequency of Communication with Friends and Family: More than three times a week Frequency of Social Gatherings with Friends and Family: More than three times a week Attends Hindu Services: More than 4 times per year Active Member of Clubs or Organizations: No Attends Club or Organization Meetings: Never Marital Status: Intimate Partner Violence: Not At Risk (10/29/2023) Humiliation, Afraid, Rape, and Kick questionnaire Fear of Current or Ex-Partner: No Emotionally Abused: No Physically Abused: No Sexually Abused: No Housing Stability: Low Risk (10/29/2023) Housing Stability Vital Sign Unable to Pay for Housing in the Last Year: No Number of Places Lived in the Last Year: 1 Unstable Housing in the Last Year: No PHYSICAL EXAM BP 116/67 Pulse 81 Temp 98 F (36.7 C) (Oral) Resp 16 Ht 1.6 m (5' 3") SpO2 94% BMI 17.32 kg/m Smoking Status Every Day Physical Exam Vitals and nursing note reviewed. Constitutional: General: She is not in acute distress. Appearance: Normal appearance. She is normal weight. She is not toxic-appearing. HENT: Nose: Nose normal. Mouth/Throat: Mouth: Mucous membranes are moist. Pharynx: Oropharynx is clear. Eyes: Extraocular Movements: Extraocular movements intact. Conjunctiva/sclera: Conjunctivae normal. Pupils: Pupils are equal, round, and reactive to light. Cardiovascular: Rate and Rhythm: Normal rate and regular rhythm. Pulses: Normal pulses. Heart sounds: Normal heart sounds. Pulmonary: Effort: Pulmonary effort is normal. Breath sounds: Normal breath sounds. Abdominal: General: Abdomen is flat. Bowel sounds are normal. Palpations: Abdomen is soft. Musculoskeletal: General: Swelling and deformity present. Normal range of motion. Cervical back: Normal range of motion and neck supple. Comments: Swelling base of the left thumb. Full range of motion. Mild crepitus with extension of the DIP joint. Status post left 5th digit amputation. No overlying erythema, drainage, wounds. Skin: General: Skin is warm and dry. Findings: No erythema, lesion or rash. Neurological: General: No focal deficit present. Mental Status: She is alert and oriented to person, place, and time. Mental status is at baseline. Psychiatric: Mood and Affect: Mood normal. Behavior: Behavior normal. ED COURSE & MEDICAL DECISION MAKING Chin Whiting is a 63 y.o. 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 Differential diagnosis includes arthritis, fracture, recurrence of chondrosarcoma. I did also consider joint effusion and septic arthritis but the patient is afebrile, the joint is without erythema, warmth, and there was no drainage from the area so I have low suspicion for this. Patient was awake, alert, and nontoxic appearing on initial evaluation. Vital Signs hemodynamically stable. Abdominal thermic. Exam notable for swelling at the base of the left thumb. Otherwise, left hand is neurovascularly intact with full range of motion. No overlying erythema or area of fluctuance. No wounds or drainage. The patient did state that she was hoping to leave the emergency department in an expedited fashion as she does have a pulmonology appointment later this afternoon. For this reason, I discussed potential options in terms of workup with the patient and ultimately we agreed to obtain x-rays of the affected area for rapid evaluation. I did explain to the patient that this would not be definitive in terms of diagnosis and would just provide initial evaluation of her symptoms. Patient was agreeable with this plan and understood the limited evaluation sad plane films with provide. X-rays of the left hand and left thumb were obtained and demonstrated soft tissue swelling but no osseous abnormality. Patient was subsequently discharged with referral to diagnostic oncology for further evaluation and management. Impression: Left thumb swelling Disposition: Discharge Medical Decision Making Amount and/or Complexity of Data Reviewed Radiology: ordered. Trung Tan MD Resident 01/08/[id number] [facility] 01-08-2024 Emergency department Note Pt arrives for cc of stiffness in left thumb for the past month. Pt has hx of cartilage cancer that she believes has returned to the digit. GCS [address] [facility] 10-29-2023 History of Present illness Narrative Note to patient: The Cures Act makes medical notes like these available to patients in the interest of transparency. However, be advised this is a medical document. It is intended as peer to peer communication. It is written in medical language and may contain abbreviations or verbiage that are unfamiliar. It may appear blunt or direct. Medical documents are intended to carry relevant information, facts as evident, and the clinical opinion of the practitioner. SUBJECTIVE Chin 63 y.o. female Chief Complaint Patient presents with Physical Patient presents today for physical Annual Physical: Diet: Well-rounded diet- vegetables, fruits, and proteins. Not eating fast food often due to experiencing GI upset. Eats 3 meals per day. Eats sweets daily. Does not drink pop. Does drink juice. Does drink 6 cup(s) of coffee per day. Drinks 4-5 x 16.9oz of water per day. Does not drink alcohol. Exercise: 7 days per week for 140 minutes- includes cardio and strength training. Sleep: Getting about 8 hours per night; feel well-rested. Currently smoking less than 5 cigarettes a day Currently using marijuana daily Stress: States this is manageable Dental Health: Has dentures and denies issuesd Eye Health: Regularly, every year. Women's Health: LMP: No LMP recorded. Patient has had a hysterectomy. Have you ever had any type of sex? Yes Who are your partners? Male How many partners do you have? Does not have partner currently, not sexually active Are you having any symptoms? No Have you been exposed to any STIs to your knowledge? No Contraception: s/p hysterectomy Last Mammogram: 01/09/2023 Last Colon Cancer Screen: 05/03/2018-Ordered 11/07/2022 Last DEXA: N/A OB History Para Term AB Living 6 6 6 0 0 5 SAB IAB Ectopic Molar Multiple Live Births 0 0 0 0 0 6 PHQ9 Depression Screenin10/29/2023 9:28 AM 01/04/2023 9:18 AM 11/07/2022 9:52 AM PHQ 9 Depression Scale Little interest or pleasure in doing things Not at all Not at all Not at all Feeling down, depressed, or hopeless Not at all Not at all Not at all Trouble falling or staying asleep, or sleeping too much Not at all Not at all Feeling tired or having little energy Not at all Not at all Poor appetite or overeating Not at all Not at all Feeling bad about yourself or that you are a failure or have let yourself or your family down Not at all Not at all Trouble concentrating on things such as reading the newspaper or watching television Not at all Not at all Moving or speaking so slowly that other people could have noticed Not at all Not at all Thoughts that you would be better off or hurting yourself in some way Not at all Not at all If you checked off any problems, how difficult have these problems made it for you to do your work, take care of things at home, or get along with other people? Not difficult at all Not difficult at all PHQ2/9 Total Score 0 0 0 Fall Screen: Fall Screen Has fallen within the past 3 months? Yes [] No [x] Needs assistance with mobility (i.e. other person, wall, cane, etc.) Yes [] No [x] Problems with cognition/memory? Yes [] No [x] Chart Review (see relevant sections in the electronic medical record) Past Medical History reviewed and updated as necessary? Yes [x] No [] Past Surgical History reviewed and updated as necessary? Yes [x] No [] Family History reviewed and updated as necessary? Yes [x] No [] Social History and Habits reviewed and updated as necessary? Yes [x] No [] Immunizations reviewed and updated as necessary Yes [x] No [] Medication List reviewed and updated as necessary? Yes [x] No [] Safety Screening: Lives with children and grandchildren. Intimate Partner Violence Screening: Have you ever been in a relationship where your partner has pushed or slapped you? No. Have you ever been in a relationship where your partner has threatened you with violence? No. Have you ever been in a relationship where your partner has thrown, broken, or punched things? No. Review of Systems: General ROS: Denies any fevers/chills, fatigue, abnormal weight loss, or changes in appetite. HEENT ROS: Denies any headaches, vision changes, hearing changes, runny nose, congestions, sore throat. Respiratory ROS: Denies any shortness of breath, coughing, or wheezing. Cardiovascular ROS: Denies any chest pain or palpitations. Gastrointestinal ROS: Denies any abdominal pain, nausea/vomiting, or changes in bowel movements. Genito-Urinary ROS: Denies any changes in urination. Denies any abnormal vaginal bleeding or discharge. Musculoskeletal ROS: Denies any musculoskeletal pain or change of function. Neurological ROS: Denies any balance changes, dizziness, or motor/sensory changes. Dermatological ROS: Denies any skin changes. Denies any rashes or lesions. Psychological ROS: Mood stable. No SI/HI. OBJECTIVE BP 107/68 (BP Location: Right arm, BP Position: Sitting) Pulse 88 Temp 97.9 F (36.6 C) (Temporal) Resp 16 Ht 1.626 m (5' 4") Wt 44.4 kg (97 lb 12.8 oz) SpO2 95% BMI 16.79 kg/m Smoking Status Every Day Physical Exam Constitutional: Appears in no acute distress. Cooperative. HEENT: NC/AT. Conjunctiva clear. EOMI, PERRLA. Hearing grossly intact. External ear and nasal structures normal, bilaterally; TMs normal bilaterally. Nasal mucosa is pink without drainage. Nares patent. Mouth: Tongue and gingiva are pink without lesions. Dentition is normal for age. Neck: Full ROM. No evidence of cervical lymphadenopathy. No asymmetry, deviation, or masses. Normal thyroid. Lungs/Thorax: Unlabored breathing. Clear breath sounds in all lung holloway, bilaterally. No wheezes appreciated. Cardiovascular: Regular rate and rhythm. Normal S1 and S2. No murmurs, gallops, or rubs appreciated. No pitting edema. 2+ pedal pulses. Abdomen: Soft, non-distended, and nontender. Normoactive bowel sounds present. No hernias appreciated. Musculoskeletal: Function is grossly intact. Gait appropriate. Good spinal alignment and appropriate ROM. No spinal or paraspinal tenderness. Good tone in upper and lower extremities. Appropriate ROM in LE. Good contact representative strength. Skin: Warm and dry. No rashes or lesions appreciated. Psychiatry/Mental Health: Alert and oriented to person, place, and time. Mood and affect appropriate. Thought process and thought content are normal. ASSESSMENT & PLAN ICD-10-CM 1. Encounter for annual physical exam Z00.00 Today I counseled on health preventive strategies, screenings, and vaccinations. I also counseled on the use of sunscreen, seat belts in motor vehicles, safe sexual practice, avoidance of illicit substances, avoidance of drinking and driving. Screening for domestic violence was also completed at this visit and was negative. General tips for a healthy diet including eating a diet rich with fruits, vegetables, whole grains, and lean protein (fish, turkey, chicken) were discussed. Adequate exercise consisting of 30 minutes of moderate intensity exercise 5 days per week was also emphasized. 2. Screening for depression Z13.31 [place] BEHAV ASSMT W/SCORE & DOCD/STAND INSTRUMENT Provided information regarding mental health resources at W 3. Current smoker F17.200 COMPREHENSIVE METABOLIC PANEL CBC, EDIF, PLATELET CBC, EDIF, PLATELET COMPREHENSIVE METABOLIC PANEL Tobacco Cessation Plan: I provided tobacco cessation counseling. 4. Mixed hyperlipidemia E78.2 LIPID PANEL W CALCULATED LDL COMPREHENSIVE METABOLIC PANEL COMPREHENSIVE METABOLIC PANEL LIPID PANEL W CALCULATED LDL 5. Vitamin D deficiency E55.9 VITAMIN D (25-HYDROXY,TOTAL) VITAMIN D (25-HYDROXY,TOTAL) Will recheck level given previous deficiency to determine need for continued supplementation. Encouraged to spend at least 15 minutes a day outside to further help with body's production of vitamin D. 6. Underweight R63.6 TSH W/FT4 REFLEX TSH W/FT4 REFLEX Discussed strategies to help with ensuring adequate nutrition. Will check TFTs to ensure no underlying condition present 7. Hypercalcemia E83.52 PTH INTACT 8. Hyperglycemia R73.9 HEMOGLOBIN A1C Risks, benefits and adverse effects of new medications have been discussed. We are in agreement that potential benefits outweigh the risks and will move forward with the plan as outlined above. In preparation for today's visit, I reviewed the pertinent portions of the medical record. I also took the opportunity to provide [id number] counseling and education to Chin. Health Maintenance Topic Date Due ZOSTER (SHINGLES) VACCINE (1 of 2) Never done COLONOSCOPY 05/03/2021 COVID-19 VACCINE (3 - 2022- season) 2023 PREVENTATIVE HEALTH VISIT 11/08/2023 MAMMOGRAM SCREENING DISCUSSION 01/10/2024 TETANUS 04/05/2025 PNEUMOCOCCAL VACCINE SERIES (3 of 3 - PPSV23 or PCV20) 2026 LIPID SCREENING 01/05/2028 INFLUENZA VACCINE Completed TDAP (ADULT) Completed HEPATITIS C VIRUS SCREENING Completed HIV SCREENING DISCUSSION Addressed HEP B VACCINE Aged Out CERVICAL CANCER SCREENING DISCUSSION Discontinued COLORECTAL CANCER SCREENING DISCUSSION Discontinued Return in about 1 year (around 10/28/2024), or if symptoms worsen or fail to improve, for Physical. STEVEN Cabrera documented in this encounter [facility] 10-29-2023 Instructions STEVEN Cabrera - 10/29/2023 9:00 AM EDT [facility] [address] [place] [address] To help with achieving your wellness goals: 1. Drink more water - goal is 60-90 ounces per day 2. Have routine dental care for overall health 3. Eat at least 5 servings of fruits and vegetables per day--Try to eat a variety of colors on your plate at each meal 4. Have at least 30 min physical activity-like walking-daily 5. Spend at least 10 minutes a day engaged in a stress reducing activity--exercising, meditation, journaling, dancing, etc. 6. Get at least 7-9 hours of sleep a night 7. Do 1 random act of kindness a day--this will improve your mood as well as have a positive impact on someone else. If you are struggling with any of these things, please let me know how I can further assist you in meeting these goals. A colonoscopy has been ordered for you today due to it being a necessary screening for colon cancer. 1. If you have not heard from this department within 2 weeks, please call to get yourself scheduled for an appointment. 2. If this department cannot see you within a reasonable time frame, call your insurance to obtain a list of facilities outside of [facility] who can see you. 3. If your colonoscopy was completed outside of [facility], please have your records sent to [facility] so your chart can stay updated. documented in this encounter [facility] 05-29-2023 History of Present illness Narrative Chin presents for scheduled appointment. HPI: Chin Whiting is a 62 y.o. female seen today for: Follow up on cervicogenic headaches and right foot pain- Seen by Neurology with recommendations to use Zofran for nause and limitation of OTC and triptans/ergots to 10 days/month for acute treatment and recommendation to continue Tizanidine 2mg at bedtime in addition to initiation of Atogepant (Qulipta) 60mg every day. States she has not been taking the Qulipta. States she does not recall getting this medication. Denies any recent headaches. Has been seen by Podiatry with recommendations for orthotics and smoking cessation to help reduce pain and inflammation. Recent MRI demonstrated: 1. 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 2. Remote healed fracture of the calcaneus. 3. Evidence of remote injuries involving the talofibular and calcaneofibular ligaments. 4. No osteochondral lesion appreciated." States her foot pain has been manageable. Denies worsening. States she has been trying to cut back on smoking but endorses recent family stressors that have made this difficult. I have reviewed the patient's medical and social history, in detail, and updated the computerized patient record. Health Maintenance Topic Date Due ZOSTER (SHINGLES) VACCINE (1 of 2) Never done COLONOSCOPY 05/03/2021 INFLUENZA VACCINE (1) 03/16/2023 COVID-19 VACCINE (3 - 2022-24 season) 2023 MAMMOGRAM SCREENING DISCUSSION 01/10/2024 TETANUS 04/05/2025 PNEUMOCOCCAL VACCINE SERIES (3 - PPSV23 or PCV20) 2026 LIPID SCREENING 01/05/2028 TDAP (ADULT) Completed HEPATITIS C VIRUS SCREENING Completed HIV SCREENING DISCUSSION Addressed CERVICAL CANCER SCREENING DISCUSSION Discontinued COLORECTAL CANCER SCREENING DISCUSSION Discontinued REVIEW OF SYSTEMS: Unless noted in HPI, all other systems have been reviewed and are negative for complaint. PHYSICAL EXAMINATION: Blood pressure 109/75, pulse 82, temperature 97.9 F (36.6 C), weight 44.7 kg (98 lb 9.6 oz), not currently . Body mass index is 16.92 kg/m . Alert and oriented x 3, no apparent distress PERRL, EOMI Good AE, CTA bilaterally, no rales/rhonchi or wheezing RRR, normal S1/ S2, no murmur/rubs/gallops BLE - no edema, no tenderness Mood and affect normal Gait normal ASSESSMENT AND PLAN: Chin was seen today for headache. Diagnoses and all orders for this visit: Cervicogenic headache - Multiple Vitamin (multivitamin) capsule; Take 1 capsule by mouth daily. Improved. Encouraged to continue current medication regimen in addition to daily exercises and stretches. Encouraged to ensure adequate sleep, hydration, and nutrition. Encouraged to follow up with Neurology as directed. Panlobular emphysema Controlled on current Spiriva and Dulera inhalers. Encouraged smoking cessation and to continue current respiratory therapy. Chronic pain of right heel Improved. Encouraged to continue to engage in stretches and exercises recommended in addition to use of supportive footwear/orthotics. Current smoker - Rosuvastatin 10 MG tablet; Take 1 tablet by mouth daily. Tobacco Cessation Plan: I provided tobacco cessation counseling. Mixed hyperlipidemia - Rosuvastatin 10 MG tablet; Take 1 tablet by mouth daily. Need for vaccination - Influenza quad vaccine 0.5 ML Suspension Prefilled Syringe; Inject 0.5 mL intramuscularly Once (In Clinic) for 1 dose. - FLU VACCINE SINGLE DOSE QUADRIVALENT Counseled on the recommendation to receive this vaccine, benefits, risks, common side effects, and schedule for administration. Patient agreeable to receive this vaccine today. Return in about 5 months (around 10/28/2023), or if symptoms worsen or fail to improve, for Physical. Orders Placed This Encounter FLU VACCINE SINGLE DOSE QUADRIVALENT (Fluarix) Rosuvastatin 10 MG tablet Multiple Vitamin (multivitamin) capsule Influenza quad vaccine 0.5 ML Suspension Prefilled Syringe Requested Prescriptions Signed Prescriptions Disp Refills Rosuvastatin 10 MG tablet 90 tablet 1 Sig: Take 1 tablet by mouth daily. Multiple Vitamin (multivitamin) capsule 90 Each 11 Sig: Take 1 capsule by mouth daily. Influenza quad vaccine 0.5 ML Suspension Prefilled Syringe 0.5 mL 0 Sig: Inject 0.5 mL intramuscularly Once (In Clinic) for 1 dose. I discussed my impression and plan of care in detail with the patient The risks and benefits of treatment plan and medications and vaccines, if received today, were extensively explained to the patient, who clearly voiced understanding and agreement. Patient advised to continue current medication regimen and new medication, if prescribed, were also reviewed in detail during the visit today. Patient was given the opportunity to ask questions about their condition and I answered all the questions to the best of my ability and to the patient s satisfaction & patient voiced understanding. Patient advised to check with their pharmacist if they are getting the right dosage as was prescribed to them. Patient advised to follow up with this clinic as recommended. However, reassurance was provided that in the interim, this office is always available to respond to questions, concerns and needs. Patient advised to call the office with any questions or concerns. STEVEN Cabrera Administered flu injection in right deltoid. Pt tolerated well as evidenced by no pain, bruising or excessive bleeding at injection site. documented in this encounter [facility] 04-30-2023 History of Present illness Narrative REASON FOR VISIT Chin Whiting presents to clinic today for a New Patient visit. Chief Complaint Other; New Patient HISTORY OF PRESENT ILLNESS HPI 62 y/o female presents to clinic for DFE OU. Patient states that she had a stye in her eye and was evaluated and was given an antibiotic and has since resolved. Patient states that her last exam was about 2 years ago and she got her glasses at that time as well. Patient denies any changes in vision since last exam. Patient denies any new floaters, flashes or pain. Current Ocular Meds: None Last edited by Micaela Aguero on 04/30/2023 12:10 PM. Allergies, medications & history reviewed & updated by Micaela Aguero REVIEW OF SYSTEMS Review of Systems 20 minutes of face to face time was spent with patient performing the military administrative technician work of this visit. Referring Physician: STEVEN Beckham HPI: 62 y/o female presents to clinic for DFE OU. Patient states that she had a stye in her eye and was evaluated and was given an antibiotic and has since resolved. Patient states that her last exam was about 2 years ago and she got her glasses at that time as well. Patient denies any changes in vision since last exam. Patient denies any new floaters, flashes or pain. Current Ocular Meds: None Hx of left eye injury as a child, was patched. Referring Doctor: STEVEN Beckham Review of Systems: I reviewed the patient's review of systems, and I have updated the medical record. Relevant Testing: none Assessment/Plan: 1. Hordeolum of left lower eyelid - resolved - treated in ED with allyn salceod on 02/09/23 - patient reports condition has resolved; no residual signs/symptoms today - Educated patient. Monitor at complete, sooner if condition returns. 2.Age-related Nuclear Cataract OU - not visually significant, monitor at complete 3. Hx Eye Injury OS - childhood, hit corner of table, used an eyepatch - vision 20/30 today - no related ocular pathology. Educated patient. Monitor at complete. - Consider further testing/OCT Mac with Rx check does not improve vision. I saw and independently examined this patient today. I discussed my findings and the therapeutic plan with the patient. I agree with the history, physical examination, and medical decisions as outlined. NEXT VISIT ORDERS: Tropicamide 1% 1 drop both eyes x 1 Phenylephrine 2.5% 1 drop to both eyes x 1 Laci applanation: Both Eyes OCT Macula: None Optos Photos: None Follow up 1 year DFE Refraction PRN documented in this encounter [facility] 04-30-2023 History of Present illness Narrative In error documented in this encounter [facility] 03-06-2023 History of Present illness Narrative Chief Complaint Patient presents with Right Foot - Pain Rt heel pain the heel turns black and blue swell. Wants to know why it is still swelling and turns black and blue. Chin Whiting is a 62 y.o. female presenting with complaint of right heel which was fractured years ago. This fracture first occurred in the past 10 years. She have swelling and discoloration that takes place. She has known previous chondrosarcoma of the hand requiring amputation and she has concern. She follows with the [facility] and had the foot worked up through them. 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 Chronic obstructive pulmonary disease (COPD) COVID-19 05/2021 Depression Heel fracture 03/21/2014 right heel Lung nodule s/p open lung biopsy, path benign Migraines Neck pain s/p cervical steroid injection Pneumonia 2002 Whooping cough Past Surgical History: Procedure Laterality Date COMPLETE EXTRACTION OF TEETH 08/26/2018 COLONOSCOPY DIAGNOSTIC N/A 05/03/2018 Laterality: N/A; Surgeon: Steven Gardner MD; Location: [facility] [place] COLONOSCOPY FOR COLORECTAL CANCER SCREENING HIGH RISK INDIVIDUAL N/A 05/02/2018 Laterality: N/A; Surgeon: Gomoshe Rojas MD; Location: [facility] [place] LUNG BIOPSY 03/24 for lung nodule AMPUTATION FINGER OR HAND 2007 L 5th digit; chondrosarcoma HYSTERECTOMY, TOTAL ABDOMINAL 1996 ARM SURGERY 1995 fracture TONSILLECTOMY 1975 HYSTERECTOMY ~1995 OOPHORECTOMY Bilateral ~1995 Social History Occupational History 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 Tobacco Use Smoking status: Every Day Packs/day: 0.50 Years: 30.00 Total pack years: 15.00 Types: Cigarettes Last attempt to quit: 11/23/2021 Years since quittin.2 Smokeless tobacco: Never Tobacco comments: Smoking about 10 cigarettes a day Vaping Use Vaping Use: Former Substance and Sexual Activity Alcohol use: No Comment: rare Drug use: Yes Types: Marijuana Comment: every day Sexual activity: Not Currently Partners: Male control/protection: Hysteroscopic Tubal Occlusion Family History Problem Relation Age of Onset Diabetes Mother Hypertension Mother Other - Specify Mother alzheimers Hemachromatosis Father Other - Specify Father disorder - "too much iron in blood" Other - Specify Sister Chronic lung disease Aneurysm Brother Other - Specify Paternal Grandmother TB Diabetes Paternal Grandfather Other - Specify Son son of heart defect Heart Failure Son Bleeding or Clotting Problems Son Platelet storage pool deficiency Other - Specify Son severe allergies Cancer- Other Paternal Uncle lymphoma Other - Specify Cousin multiple myeloma Colorectal Cancer Neg Hx Breast Cancer Neg Hx Ovarian Cancer Neg Hx Uterine Cancer Neg Hx Mental Illness Neg Hx Addiction Neg Hx Current Outpatient Medications Medication Sig Atogepant 60 MG tablet Take 60 mg by mouth daily. Calcium Carb-Cholecalciferol 600-10 MG-MCG tablet TAKE 1 TABLET BY MOUTH TWICE A DAY WITH MEALS calcium carbonate-vitamin D 600mg-400units 600-400 MG-UNIT tablet Take 1 tablet by mouth 2 times daily with meals. Ciprofloxacin 0.3 % Ointment Apply 1/2 inch along the lash line twice daily to the left eye for the next 5-7 days. DISABILITY PLACARD Disability placard end date 11/09/2027 fluticasone 50 MCG/ACT Suspension nasal spray SPRAY 1 SPRAY BY NASAL ROUTE EVERY DAY guaiFENesin (Mucinex) 600 MG Tab SR 12 HR tablet SR Take 1 tablet by mouth 2 times daily. ipratropium-albuterol 0.5-2.5 (3) MG/3ML nebulizer solution Take 3 mL by nebulization every 4 hours as needed for Wheezing, Respiratory Distress, Breathing Treatment, Cough or Shortness of Breath. Magnesium Oxide 500 MG tablet Take 1 tablet by mouth daily. Memantine 5 MG tablet Take 1 tablet by mouth 2 times daily. Mometasone Furo-Formoterol Fum (Dulera) 100-5 MCG/ACT Aerosol Inhale 2 puffs every 12 hours. Multiple Vitamin (multivitamin) capsule Take 1 capsule by mouth daily. nicotine 21 MG/24HR Patch [address] 1 PATCH ON SKIN EVERY 24 HOURS. Ondansetron 4 MG Tab Dispersible tablet Take 1 tablet by mouth every 8 hours as needed for Nausea / Vomiting. Rosuvastatin 10 MG tablet Take 1 tablet by mouth daily. tiotropium (Spiriva Respimat) 2.5 MCG/ACT Aero Soln inhaler Inhale 2 puffs daily. Tizanidine 2 MG tablet Take 1 tablet by mouth 3 times daily. Allergies Allergen Reactions Azithromycin Anaphylaxis Other reaction(s): Anaphylaxis, AOF Review of Systems: Constitutional: Negative. Negative for fever, chills, weight loss, weight gain and malaise/fatigue. Skin: Negative. Negative for rash, itching and skin lesions. Musculoskeletal: Negative. Negative for myalgias, back pain, joint pain and falls. Neurological: Negative. Negative for dizziness and seizures. Physical Exam General:Chin Whiting is seated comfortably in the examination room. She is alert and oriented to time and place. In no acute distress. Mood and affect are normal and appropriate to situation.Chin presents well developed, well nourished female. Chin presents weightbearing normal with normal shoes. Smoking Status Every Day Skin: Normal. No abrasions, lacerations, ecchymosis noted. intact skin without open area or infection Musculoskeletal:all joints tested WNL and muscle strength 5/5 for all groups tested. No pain with palpation of the heel or motion. Neurological:protective sensation grossly intact. Vascular: temperature warm to warm proximal to distal and DP and PT pulses +1 bilateral. Imaging Studies: Reviewed MRI and XR Chin was seen today for pain. Diagnoses and all orders for this visit: Callus of foot Plan: On today's visit I have reviewed with the patient the diagnoses and treatment options for her lower extremity pathology. I have explained to her conservative treatment options. All of her questions were answered regarding this diagnosis. I did discuss with Chin Whiting the biomechanics of her foot and how this can contribute to abnormal pressure uptake and eventual pain. The potential for further pain as well as short term and residential results of neglecting the mechanics of this. I did therefore recommend the use of orthotics and improved control of the mechanics of her foot and how this can improve the pain. Discontinued smoking. documented in this encounter [facility] 03-06-2023 History of Present illness Narrative [facility] HPI Reviewed eligibility criteria: 62 y.o. female with a 22.5 pack year smoking history Shared Decision making discussion prior to obtaining CT Radiation risks: yes False positive rate: yes Importance of smoking cessation: She has smoked 0.5 ppd for 45 years and is working on quitting smoking. She is already using nicotine patches and does not want a referral to smoking cessation clinic. Smoking cessation discussed for [address] Scan Results: CT LUNG CANCER SCREENING Result Date: 03/13/2023 LOW-DOSE CT LUNG SCREENING EXAM: CT LUNG CANCER SCREENING, 03/06/2023 09:41 AM CLINICAL INDICATIONS: 62 years Female Lung cancer screening, >= 20 pk-yr smoking history (Age >= 50y); RELEVANT CLINICAL HISTORY: Z12.2:Screening for lung cancer Z87.891:Personal history of tobacco use, presenting hazards to health COMPARISON: PET/CT from January 17, [address] from February 22, 2022 TECHNIQUE: Low-dose noncontrast screening chest CT was performed as recommended by the [place] Preventive Services Task Force. FINDINGS: Lungs: - Parenchymal Changes: Status post left upper lobe wedge resection. Severe upper lung predominant centrilobular emphysema. Unchanged biapical scarring. Left lower lobe calcified granuloma. Bibasilar atelectasis. A few groundglass foci are noted in the right middle and upper lobes. - NonCalcified Nodules: A lobulated medial right lower lobe nodule without significant PET activity on January 17, 2022 has slightly increased in size over multiple studies measuring 1.1 x 0.6 x 0.9 cm previously 0.8 x 0.6 x 0.9 cm on February 22, 2022, (VDT 523 days suggesting benign etiology, series 3 image 205 and series 6 image 37). An additional partially cavitary right lower lobe nodule is grossly unchanged (series 3 image 204). No new suspicious nodules. Pleural Spaces: Normal, without effusion, thickening, or calcification. Trachea and Airways: Thin secretions noted in the trachea and proximal bronchi. Mediastinum and Shavonne: No mass or lymphadenopathy appreciated. Unremarkable esophagus. Supraclavicular and Axillae: No lymphadenopathy. Unremarkable thyroid gland. Heart and Vessels: Normal heart size. No pericardial effusion. Aorta and central pulmonary arteries of normal caliber. Mild coronary artery calcifications. Upper Abdomen: Limited with no abnormalities appreciated. Bones and soft tissues: Stable mild superior endplate deformity at T10. No suspicious osseous lesions. IMPRESSION: Pulmonary nodule screening result: Lung-RADS 2: Benign Appearance or Behavior (Nodules with a very low likelihood of becoming a clinically active cancer due to size or lack of growth). Recommendation (based on the most suspicious nodule): Continue annual screening with LDCT in 12 months Modifer S: Other: Clinically Significant or Potentially Clinically Significant Findings (non lung cancer): Faint groundglass opacities in the right middle and upper lobes may be infectious/inflammatory. Reviewed results including incidental findings with patient: mychart Discussed with patient that they may not get the results until at least 72 hours and they would like to get it via: [facility] Plan 1. CT scan in 1 year d/t stable lung nodules, yearly lung cancer screening CTs per LUNG RADS 2 2. Other findings: Emphysema: FU with PCP 3. Other findings: CAD: FU with PCP documented in this encounter [facility] 03-01-2023 Miscellaneous Notes Medication Access Team coordinated the following [facility] Clinics: MS/Neurology Prior Authorization Per the patient's insurance provider, Len, the prior authorization for Ubrlevy (on-label) was denied due to not showing trial and failure to Amitriptyline/Nortriptyline, AND a Beta Geneva, AND Ajovy.. Non-Specialty Prescriptions: 1, 8-10 min *Pt must have THREE preferred medications AND Ajovy. Evelyn Holman documented in this encounter [facility] 03-01-2023 Telephone encounter Note Medication Access Team coordinated the following [facility]: MS/Neurology Prior Authorization Per the patient's insurance provider, Len, the prior authorization for Ubrlevy (on-label) was denied due to not showing trial and failure to Amitriptyline/Nortriptyline, AND a Beta [place], AND Ajovy.. Non-Specialty Prescriptions: 1, 8-10 min *Pt must have THREE preferred medications AND Ajovy. [facility] History and physical note Associated Order(s): C7-T1 Interlaminar Epidural Steroid Injection Subjective: Patient presents for low back pain. ROS: ROS (relevant): Constitutional: - fevers, night sweats, unintentional wt loss Cardiovascular: -edema, -SOB, -Chest pain GI: - bowel dysfunction : - bladder dysfunction MSK: +back pain Neuro: - weakness, - saddle anesthesia Objective: BP 127/69 Pulse 79 Temp 97 F (36.1 C) (Infrared) Ht 1.626 m (5' 4") Wt 43.1 kg (95 lb) BMI 16.31 kg/m Smoking Status Every Day GEN: NAD, AOX3, Cooperative CV: RRR, non-cyonotic RESP: normal resp effort, no wheezing LABS: Lab Results Component Value Date CREATURINE 98.51 11/29/2020 CREATSERUM 0.86 02/09/2023 BUN 10 02/09/2023 SODIUM 139 02/09/2023 POTASSIUM 3.7 02/09/2023 CHLORIDE 106 02/09/2023 CO2 30 02/09/2023 Lab Results Component Value Date ALT 46 01/04/2023 AST 30 01/04/2023 ALKPHOS 85 01/04/2023 BILITOTAL 0.2 01/04/2023 BILIDIRECT 0.1 02/13/2012 Lab Results Component Value Date WBC 6.47 02/09/2023 HGB 15.0 02/09/2023 HCT 46.1 (H) 02/09/2023 PLATELET 185 02/09/2023 MCV 94.1 02/09/2023 Lab Results Component Value Date INR 1.0 02/09/2023 INR 1.1 09/11/2017 INR 1.0 01/11/2017 PT 13.2 02/09/2023 PT 13.6 09/11/2017 PT 13.0 01/11/2017 Lab Results Component Value Date SEDRATE 10 01/04/2023 C-reactive protein Assessment: ICD-10-CM 1. DDD (degenerative disc disease), cervical M50.30 [facility] Plan: -C7-T1 JEANINE C7-T1 Interlaminar Epidural Steroid Injection Date/Time: 02/21/2023 1:45 PM Performed by: Jonn Marley MD Authorized by: Jonn Marley MD Procedure Details: Procedure performed: cervical JEANINE - interlaminar After informed consent was obtained, the patient was escorted back to the procedure room and placed in the prone position on the procedure table. Verbal verification and time-out was performed and all present were in agreement. Vital sign monitoring was initiated. The patient was sterilely prepped and draped in usual fashion with chlorhexidine gluconate 4% antiseptic solution. Procedure guidance: fluoroscopy The fluoroscope was brought into the field and a PA image was obtained to identify the appropriate vertebral body. The anterior and posterior aspects of the superior endplate of the vertebral body were superimposed upon one another. A point on the skin overlying the proposed site of needle entry was marked. The skin and subcutaneous tissues overlying the proposed needle entry site were anesthetized with 2 mL of lidocaine 1%. A 20 G inch Tuohy needle was advanced to the epidural space area. Needle depth was periodically evaluated using fluoroscopic imaging. Correct final needle position was confirmed with anteroposterior and contralateral oblique fluoroscopic imaging. Under live fluoroscopy 2 mL iohexol 300 MG/ML was injected following negative aspiration for heme and air. Adequate contrast spread was confirmed. Medication Verification: I have personally verified and performed the final check of the medication(s) used in this procedure prior to administration. The following items were included during the verification process for medication(s) administered: drug name, strength, volume, expiration, physical integrity and appearance of the medication(s). A solution of 2 mL Sodium chloride (PF) 0.9 %; 40 mg methylPREDNISolone acetate 40 MG/ML was divided equally among the affected levels and injected. After completion of the injection, the needle was flushed and removed. The above listed procedure was done for: Left C7-T1 Right C7-T1 Post Procedure Details: Complications: none The procedure was tolerated well. The patient was transported to the recovery room where they were observed for at least 20 minutes prior to discharge. The patient was discharged to home. They were advised to contact the office with any questions or concerns. Pre Procedure Details: Informed consent was obtained. Risks and benefits were explained to the patient and they wish to proceed. We discussed risks (pain, bleeding, infection, CSF leak, positional headache, artery injury, paralysis, nerve injury, medication allergy, seizure, stroke and ), benefits (pain relief and increase in function and improvement of QoL), and process involved. Patient's pain severity pre-procedure: 02/22 Patient's pain severity post-procedure: 07/25 [facility] 02-21-2023 History and physical note Associated Order(s): C7-T1 Interlaminar Epidural Steroid Injection Subjective: Patient presents for low back pain. ROS: ROS (relevant): Constitutional: - fevers, night sweats, unintentional wt loss Cardiovascular: -edema, -SOB, -Chest pain GI: - bowel dysfunction : - bladder dysfunction MSK: +back pain Neuro: - weakness, - saddle anesthesia Objective: BP 127/69 Pulse 79 Temp 97 F (36.1 C) (Infrared) Ht 1.626 m (5' 4") Wt 43.1 kg (95 lb) BMI 16.31 kg/m Smoking Status Every Day GEN: NAD, AOX3, Cooperative CV: RRR, non-cyonotic RESP: normal resp effort, no wheezing LABS: Lab Results Component Value Date CREATURINE 98.51 11/29/2020 CREATSERUM 0.86 02/09/2023 BUN 10 02/09/2023 SODIUM 139 02/09/2023 POTASSIUM 3.7 02/09/2023 CHLORIDE 106 02/09/2023 CO2 30 02/09/2023 Lab Results Component Value Date ALT 46 01/04/2023 AST 30 01/04/2023 ALKPHOS 85 01/04/2023 BILITOTAL 0.2 01/04/2023 BILIDIRECT 0.1 02/13/2012 Lab Results Component Value Date WBC 6.47 02/09/2023 HGB 15.0 02/09/2023 HCT 46.1 (H) 02/09/2023 PLATELET 185 02/09/2023 MCV 94.1 02/09/2023 Lab Results Component Value Date INR 1.0 02/09/2023 INR 1.1 09/11/2017 INR 1.0 01/11/2017 PT 13.2 02/09/2023 PT 13.6 09/11/2017 PT 13.0 01/11/2017 Lab Results Component Value Date SEDRATE 10 01/04/2023 C-reactive protein Assessment: ICD-10-CM 1. DDD (degenerative disc disease), cervical M50.30 [facility] Plan: -C7-T1 JEANINE C7-T1 Interlaminar Epidural Steroid Injection Date/Time: 02/21/2023 1:45 PM Performed by: Jonn Marley MD Authorized by: Jonn Marley MD Procedure Details: Procedure performed: cervical JEANINE - interlaminar After informed consent was obtained, the patient was escorted back to the procedure room and placed in the prone position on the procedure table. Verbal verification and time-out was performed and all present were in agreement. Vital sign monitoring was initiated. The patient was sterilely prepped and draped in usual fashion with chlorhexidine gluconate 4% antiseptic solution. Procedure guidance: fluoroscopy The fluoroscope was brought into the field and a PA image was obtained to identify the appropriate vertebral body. The anterior and posterior aspects of the superior endplate of the vertebral body were superimposed upon one another. A point on the skin overlying the proposed site of needle entry was marked. The skin and subcutaneous tissues overlying the proposed needle entry site were anesthetized with 2 mL of lidocaine 1%. A 20 G inch Tuohy needle was advanced to the epidural space area. Needle depth was periodically evaluated using fluoroscopic imaging. Correct final needle position was confirmed with anteroposterior and contralateral oblique fluoroscopic imaging. Under live fluoroscopy 2 mL iohexol 300 MG/ML was injected following negative aspiration for heme and air. Adequate contrast spread was confirmed. Medication Verification: I have personally verified and performed the final check of the medication(s) used in this procedure prior to administration. The following items were included during the verification process for medication(s) administered: drug name, strength, volume, expiration, physical integrity and appearance of the medication(s). A solution of 2 mL Sodium chloride (PF) 0.9 %; 40 mg methylPREDNISolone acetate 40 MG/ML was divided equally among the affected levels and injected. After completion of the injection, the needle was flushed and removed. The above listed procedure was done for: Left C7-T1 Right C7-T1 Post Procedure Details: Complications: none The procedure was tolerated well. The patient was transported to the recovery room where they were observed for at least 20 minutes prior to discharge. The patient was discharged to home. They were advised to contact the office with any questions or concerns. Pre Procedure Details: Informed consent was obtained. Risks and benefits were explained to the patient and they wish to proceed. We discussed risks (pain, bleeding, infection, CSF leak, positional headache, artery injury, paralysis, nerve injury, medication allergy, seizure, stroke and ), benefits (pain relief and increase in function and improvement of QoL), and process involved. Patient's pain severity pre-procedure: 02/22 Patient's pain severity post-procedure: 07/25 documented [address] this encounter [facility] 02-21-2023 Instructions Michelle Petit RN - 02/21/2023 1:45 PM EDT Images from the original note were not included. HOME CARE INSTRUCTIONS These instructions will help you care for yourself, or be cared for when you return home today. MEDICINES: You may take any NON-ASPRIN over the counter medicine for pain as it is directed. You may take all your usual medicines, including pain medicines. Re-Start your blood thinners tomorrow, and hold them as you were instructed before by your Physician. SITE CARE: Remove any band-aid from the injection site after six (6) hours. For Comfort you may apply ice packs to the site for the FIRST forty eight (48) hours, but for only ten (10) to fifteen (15) minutes at a time. After forty eight (48) hours, use a warm heating pad to the site, for only ten (10) to fifteen (15) minutes at a time. Be sure to NEVER place an Ice Pack or Heating Pad directly on the skin. Always wrap them in a light towel or cloth to protect the skin from freezing or burning ACTIVITY: Rest, and limit your activity for the remainder of the day. Tomorrow, you may return to work or school. If you have weakness or numbness anywhere caused by the injection, limit your activity until sensation returns to normal. You may Shower after 24 hours of your injection. Do Not soak in a bath tub, Hot tub, or go swimming for 5 days. DIET: Drink at least six (6) to eight (8) cups of Fluid and eat your normal diet today. WHAT TO EXPECT AFTER THE INJECTION: Some soreness and bruising at the injection sites. CALL THE [facility] AT [phone] FOR: Any severe headache that develops in the next forty eight (48) hours. Any unusual increase in your level of pain. Any unexpected swelling, weakness, skin rash, itching or fever. If it is after hours or on a weekend, call your family doctor or visit the nearest emergency room. FOLLOW UP At your next appointment, be sure to be ready to tell the doctor: When you felt relief from the pain. The level of relief you felt. If your pain got worse, and if so, how much worse. If you have any problems, or questions. Please call the [facility] nurse at [phone]. Talk to your doctor or others on your health care team, if you have questions. You may request more written information from the [employer] at or e-mail: [email or web address] Bupivacaine/Lidocaine (Injection) Bupivacaine (nxd-ACC-a-betancourt), Lidocaine (XWZ-nrv-fqsv) Causes numbness! Brand Name(s): There may be other brand names for this medicine. When This Medicine Should Not Be Used: You should not receive this medicine if you have had an allergic reaction to bupivacaine, lidocaine, or certain other types of local anesthetic (numbing medicine). You should not receive this medicine if you have certain heart rhythm problems such as Nhclb-Gagjuliwa-Fobnz syndrome, Sanders-Ortiz syndrome, or severe heart block, unless you have a pacemaker. How to Use This Medicine: Drugs and Foods to Avoid: Ask your doctor or pharmacist before using any other medicine, including acnk-bwx-vnkkrty medicines, vitamins, and herbal products. Make sure your doctor knows if you are taking heart or blood pressure medicine such as digoxin (Lanoxin ), atenolol (Tenormin ), propranolol (Inderal ), or metoprolol (Lopressor ). Make sure your doctor knows about any other medicine you have used recently. Warnings While Using This Medicine: Make sure your doctor knows if you are or breast feeding. You may need to stop breast feeding for a short time after receiving this medicine. Make sure your doctor knows if you have high blood pressure, low blood pressure, or other circulation problems. Tell your doctor if you have heart problems, such as congestive heart failure or heart rhythm problems. Make sure your doctor knows if you have liver disease, or any other health problems or drug allergies. Possible Side Effects While Using This Medicine: Call your doctor right away if you notice any of these side effects: Allergic reaction: Itching or hives, swelling in your face or hands, swelling or tingling in your mouth or throat, chest tightness, trouble breathing Dizziness, drowsiness, confusion (trouble thinking), seizures (convulsions), or fainting. Nausea or vomiting. Loss of feeling or movement to your eye that lasts longer than your doctor told you to expect. Loss of feeling or movement that happens somewhere else in your body other than the area that was numbed for treatment. Restlessness, anxiety. Ringing in the ears. Sudden or severe headache, or problems with vision, speech, or walking. Tremors, shaking, or chills. Trouble urinating, or new problems controlling when you urinate or have a bowel movement. Uneven, pounding, fast, or slow heartbeats. If you notice other side effects that you think are caused by this medicine, tell your doctor. Call your doctor for medical advice about side effects. You may report side effects to FDA at 0-576-TKI-7184 Radiological Ionic Contrast Media (Injection) Makes parts of your body show up better during an imaging test, such as a CT scan. Contrast media (dye) can be used for making images of many different body parts, including your kidneys, head, heart, or blood vessels. Brand Name(s):Cystografin-Dilute , Cystografin , Sinografin , Multihance , Feridex IV , Optimark , Cholografin Meglumine There may be other brand names for this medicine. When This Medicine Should Not Be Used: Make sure your doctor and the person who gives you this medicine know if you have had an allergic reaction to any contrast dye. How to Use This Medicine: Injectable Your doctor will prescribe your exact dose and tell you how often it should be given. This medicine can be given different ways, depending on what part of your body the doctor needs to see. This medicine may be given through a needle or catheter (plastic tube) placed in one of your veins. A nurse or other trained health professional will give you this medicine. You might also receive other medicine before you are given the contrast dye. Tell your caregiver right away if any of this medicine gets on your skin. A caregiver might need to take your blood pressure, temperature, or pulse during the test. You might need to stay for awhile after the test is done. Drugs and Foods to Avoid: Ask your doctor or pharmacist before using any other medicine, including retf-lcg-mhsjamd medicines, vitamins, and herbal products. Make sure your doctor knows about all other medicines you are using. Different contrast dyes have different drug and food concerns. Some other things that affect other drugs and foods are what kind of test is being done and what part of your body is being tested. Make sure your doctor knows if you are also using a blood thinner such as warfarin (Coumadin ). Warnings While Using This Medicine: Make sure your doctor knows if you are or . Make sure your doctor knows if you have severe kidney problems or liver disease. Also tell your doctor if you have just had a liver transplant or if you are going to have a transplant. The use of a gadolinium-based contrast agent (GBCA) during an MRI should be avoided in patients with severe kidney problems, patients with severe kidney problems due to a severe liver disorder (hepato-renal syndrome), or patients with severe kidney problems before, during, or after a liver transplant. The risk of nephrogenic systemic fibrosis (NSF), a very serious disease affecting the skin, muscle, and internal organs, may be increased. Your doctor may do some tests before your MRI to make sure your kidneys are working properly. Even if you have kidney problems or liver disease, your doctor may decide that it is still important to use the contrast dye. If you are on hemodialysis and treated with this contrast dye, your doctor may perform hemodialysis immediately after you receive the contrast agent. Tell your doctor and the person who does the test if you are allergic to iodine, or if you have asthma or any type of allergy. This includes hay fever and food allergy. Make sure your health caregiver knows if you have diabetes, sickle cell disease, thyroid problems, or pheochromocytoma (a tumor on the adrenal gland). Tell your caregiver if you have cancer, especially if you have multiple myeloma. Make sure your doctor knows if you have high blood pressure, blood circulation problems, or heart disease. Make sure any doctor or dentist who treats you knows that you are using this medicine. This medicine may affect the results of certain medical tests. The specific test you are having might have its own side effects or risks. Talk with you health caregiver about the test and what you should expect during and after the test. Possible Side Effects While Using This Medicine: Call your doctor right away if you notice any of these side effects: Allergic reaction: Itching or hives, swelling in your face or hands, swelling or tingling in your mouth or throat, chest tightness, trouble breathing Chest pain. Fever. Light-headedness or fainting. Muscle pain, stiffness, or weakness. Seizure. Severe pain while the dye is being injected, or stomach or back pain afterwards. Shakiness, fast heartbeat, trouble breathing. Skin swelling, hardness, tightness, burning, itching, or red or dark patches. Stiff joints or trouble moving, deep bone pain. Sudden or severe headache. Yellow spots on your eyes. If you notice these less serious side effects, talk with your doctor: Mild skin tingling, burning, or pain where the needle is placed. Nausea, vomiting. Warmth or redness in your face, neck, arms, or upper chest. If you notice other side effects that you think are caused by this medicine, tell your doctor. Call your doctor for medical advice about side effects. You may report side effects to FDA at 0-597-BJP-[phone] [employer]. All rights reserved. Radiological Ionic Contrast Media (Injection) (Injectable) - English Sh[employer]el Generated on Thursday, May 17, 2012 1:45:02 PM Methylprednisolone (Injection) Methylprednisolone (tqku-xc-oulv-NIS-oh-lone) Treats inflammation, severe allergies, flare-ups of ongoing illnesses, and many other medical problems. May also be used to decrease some symptoms of cancer. This medicine is a corticosteroid (cortisone-like medicine or steroid). Brand Name(s):Depo-Medrol , Novaplus Depo-Medrol , Depo Medrol , Solu-Medrol , A-Methapred , Novaplus Solu-Medrol , Solu Medrol There may be other brand names for this medicine. When This Medicine Should Not Be Used: You should not receive this medicine if you have had an allergic reaction to methylprednisolone or if you have a fungus infection that affects your whole body. You should not have this medicine injected into a muscle if you have idiopathic thrombocytopenic purpura. Some strengths of Solu-Medrol that contain benzyl alcohol should not be used in premature babies. How to Use This Medicine: Injectable A nurse or other trained health professional will give you this medicine. This medicine may be given through a needle placed in one of your veins or as a shot into a muscle. A nurse or other trained health professional will give you this medicine. Your doctor may give you a few doses of this medicine until your condition improves, and then switch you to an oral medicine that works the same way. If you have any concerns about this, talk to your doctor. If a dose is missed: This medicine needs to be given on a fixed schedule. If you miss a dose or forget to use your medicine, call your doctor or pharmacist for instructions. Drugs and Foods to Avoid: Ask your doctor or pharmacist before using any other medicine, including tdvz-ltj-ztcpqqq medicines, vitamins, and herbal products. Make sure your doctor knows if you are also using aminoglutethimide (Cytadren ), amphotericin B (Fungizone ), carbamazepine (Tegretol ), cholestyramine (Questran ), cyclosporine (Gengraf , Neoral , Sandimmune ), digoxin (Digitek , Lanoxin ), isoniazid (Nydrazid ), ketoconazole (Nizoral ), pancuronium (Pavulon ), phenobarbital (Luminol ), phenytoin (Dilantin ), rifampin (Rifadin , Rimactane ), or certain antibiotics (such as clarithromycin, erythromycin, Biaxin , Danny-tab , or Zithromax ). Tell your doctor if you are also using a diuretic or "water pill," a blood thinner (such as warfarin, Coumadin ), pain or arthritis medicine (NSAIDs such as aspirin, celecoxib, ibuprofen, Advil , Aleve , Celebrex , or Motrin ), insulin or diabetes medicine that you take by mouth (such as glyburide, metformin, Actos , Amaryl , Avandia , Glucotrol , or Glucovance ), or estrogen (including control pills and hormone replacement therapy). Talk to your doctor before getting flu shots or other vaccines while you are receiving this medicine. Vaccines may not work as well, or they could make you ill while you are using this medicine. Warnings While Using This Medicine: Make sure your doctor knows if you are or , or if you have recently spent time in a tropical climate. Make sure your doctor knows about all other health problems you have, including kidney disease, liver disease, heart disease, diabetes, or stomach or bowel problems. Tell your doctor if you have adrenal gland problems (such as Luis syndrome), nerve or muscle disease (such as myasthenia gravis), thyroid problems, or a recent heart attack. If this medicine is being injected into a joint, make sure your doctor knows about any other problems you have had with that joint. Tell your doctor right away if you have a fever or other signs of an infection such as chills, sore throat, or pain. This medicine could cause you to get infections more easily. If you are exposed to chicken pox or measles, tell your doctor right away. Avoid people who are sick, and wash your hands often. Make sure your doctor knows if you already have an infection, such as herpes eye infection, tuberculosis, or threadworm (Strongyloides). Tell your doctor if you have diarrhea or if you get infections often. Do not stop using this medicine suddenly without asking your doctor. You may need to slowly decrease your dose before stopping it completely. This medicine may cause mood or behavior changes. Talk with your doctor if you feel unusually happy or sad, have trouble sleeping, have mood swings, or start to have unusual behavior. If you use this medicine for a long time, tell your doctor about any extra stress or anxiety in your life, including other health concerns and emotional stress. Your dose might need to be changed for a short time while you have extra stress. Tell your doctor if you have any bone pain or if you have an increased risk for osteoporosis (weak bones). If your child is using this medicine, tell the doctor if you think your child is not growing properly. This medicine might affect the bones, so it could cause slow growth in children or osteoporosis in anyone if it is used for a long time. Check with your doctor right away if you have blurred vision, trouble seeing, eye pain, or any other changes in vision. You may need to be checked by an eye doctor. Make sure any doctor or dentist who treats you knows that you are using this medicine. This medicine may affect the results of certain medical tests. Your doctor will need to check your blood or urine at regular visits while you are using this medicine. Be sure to keep all appointments. Possible Side Effects While Using This Medicine: Call your doctor right away if you notice any of these side effects: Allergic reaction: Itching or hives, swelling in your face or hands, swelling or tingling in your mouth or throat, chest tightness, trouble breathing Blurred vision, eye pain, changes in vision Dry mouth, increased thirst, muscle cramps, nausea, or vomiting Fast, slow, pounding, or uneven heartbeat Fever, chills, cough, sore throat, and body aches Mood swings, unusual thoughts or behavior Muscle pain, weakness, or cramps, sudden joint pain Swelling in your hands, ankles, or feet Unusual bleeding or bruising If you notice these less serious side effects, talk with your doctor: Color changes on the skin, dark freckles Diarrhea Easy bruising Increased thirst or urination Red, pink, purple, or brown flat spots or bumps on your skin Round, puffy face Skin looks sunken or indented where the shot was given If you notice other side effects that you think are caused by this medicine, tell your doctor. Call your doctor for medical advice about side effects. You may report side effects to FDA at 1-345-WXQ-6803 documented in this encounter [facility] 01-09-2023 History of Present illness Narrative is a 62 y.o. female who was seen at the [facility] for follow up of COPD. Symptoms at baseline. No hospitalizations or ER visits since last visit. Attempting to quit smoking. Now at 5-10 cigs a day. Patiently recently admitted from 11/09 to 11/11 for COPD exacerbation. At that time she was discharged on a prednisone course and inhalers. Following discharge she was unable to fill her Pulmicort, and had been having worsening shortness of breath. She presented to her PCP for hospital follow-up where she was found to have SpO2 of 87% and was recommended to come to the ED for evaluation. On arrival to [facility], patient continued to endorse shortness of breath and required supplemental oxygen to maintain SpO2 over 88%. Patient was started on prednisone course and continued on home inhalers. Patient was able to be weaned to room air at rest, but required 1 L NC with exertion to maintain SpO2 greater than 88%. Patient did not endorse infectious symptoms, so no antibiotics were initiated. Plan for patient to complete 5 day prednisone course and discharge on Dulera twice a day, Spiriva once daily, and albuterol as needed. Activity level: 2 flight of stairs, 10 blocks on flat ground, continues to do household activity No complains of cough no hemoptysis No appetite or weight loss Recurrent history of bronchitis/ pneumonia- No Recurrent hospitalizations/ ER visits/ urgent care visits for bronchitis- No H/p orthopnea, pnd- none Smoking exposure- Active smoker, overall 40 pack years, quit for 2 months this year and then active again but now down to about 1-3 on a day average- now she said she has quit since the last week. 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 smoking Travel history- non significant Sick contacts- none Inhalers- Rescue inhalers- albuterol, used 1-2 times a month Oxygen requirements- none mMRC score: 1 Grade Degree of breathlessness related to activities 0 Not troubled by breathlessness except on strenuous exercise 1 Short of breath when hurrying or walking up a slight hill 2 Walks slower than contemporaries on level ground because of breathlessness, or has to stop for breath when walking at own pace 3 Stops for breath after walking about 100m or after a few minutes on level ground 4 Too breathless to leave the house, or breathless when dressing or undressing Past Medical History She has a past medical history of Adenoid hypertrophy (05/2010), Back pain, Cardiac angina, Chondrosarcoma nos (1999), Chronic obstructive pulmonary disease (COPD), COVID-19 (05/2021), Depression, Heel fracture (03/21/2014), Lung nodule, Migraines, Neck pain, Pneumonia (2001), and Whooping cough. She has no past medical history of Exposure to hazardous chemical or History of radiation exposure. Past Surgical History has a past surgical history that includes tonsillectomy (1975); hysterectomy, total abdominal (1996); amputation finger or hand (2007); arm surgery (1995); lung biopsy (03/24); colonoscopy for colorectal cancer screening high risk individual (N/A, 05/02/2018); colonoscopy diagnostic (N/A, 05/03/2018); complete extraction of teeth (08/26/2018); oophorectomy (Bilateral, ~1995); and hysterectomy (~1995). Immunization History Administered Date(s) Administered COVID-19 monovalent vaccine (Moderna), 12yr+, 100mcg/0.5mL 10/27/2020, 11/23/2020 Dexamethasone Inj 11/10/2010 Influenza Vaccine, (RECOMB) Quadrivalent PF 06/21/2020, 03/31/2021 Influenza, injectable, quadrivalent, preservative free 05/15/2019 Lidocaine 1% Inj 11/10/2010 Pneumococcal Conjugate 13-valent vaccine 05/15/2019 Pneumococcal Polysac 23-Valent Vaccine 2021 Td Vaccine 5-2 Lf 12/14/2008 Tdap Vaccine 04/05/2015 Medications She has a current medication list which includes the following prescription(s): calcium carb-cholecalciferol, DISABILITY PLACARD, dulera, fluticasone, guaifenesin, magnesium oxide -mg supplement, memantine, multivitamin, nicotine, ondansetron, rosuvastatin, spiriva respimat, tizanidine, calcium carbonate-vitamin d 600mg-400units, and ipratropium-albuterol. Allergies She is allergic to azithromycin. Family History family history includes Aneurysm in her brother; Bleeding or Clotting Problems in her son; Cancer- Other in her paternal uncle; Diabetes in her mother and paternal grandfather; Heart Failure in her son; Hemachromatosis in her father; Hypertension in her mother; Other - Specify in her cousin, father, mother, paternal grandmother, sister, son, and son. Social History Social History Social History Narrative Not on file She reports that she has been smoking cigarettes. She has a 15.00 pack-year smoking history. She has never used smokeless tobacco. She reports current drug use. Drug: Marijuana. She reports that she does not drink alcohol. Review of Systems A complete, 14-point review of systems was obtained per the patient interview and is globally negative except for what is described in the HPI or in the scanned, new patient intake sheet which was discussed with the patient. Physical Exam BP 104/72 (BP Location: Right arm, BP Position: Sitting) Pulse 90 Resp 12 Ht 1.626 m (5' 4") Wt 42.3 kg (93 lb 3.2 oz) SpO2 99% BMI 16.00 kg/m Smoking Status Every Day Body mass index is 16 kg/m . GENERAL: Alert, oriented and in no acute distress. HEENT: EYES: Pupils equal, round and reactive, extraocular muscles intact. Nose: membranes clear, no polyps. EARS: Tympanic membranes are clear. MOUTH: moist and pink with no exudates. Mallampati class 2. NECK: is supple, no thyromegaly. No stridor. HEART: regular rate and rhythm. No murmurs, rubs or gallops. LUNGS: Clear to auscultation bilaterally. No wheezing, rhonchi or rales. No dullness to percussion. ABDOMEN: Positive bowel sounds, soft, nontender, nondistended. EXTREMITIES: No cyanosis, clubbing or edema. NEURO: grossly intact. Normal affect. Gait normal. SKIN: warm and dry, no obvious rashes. Diagnostic Review CBC Lab Results Component Value Date WBC 9.79 01/04/2023 HGB 15.3 (H) 01/04/2023 HCT 47.2 (H) 01/04/2023 PLATELET 210 01/04/2023 MCV 94.4 01/04/2023 EDIF Lab Results Component Value Date RBCDISTRIBU 13.2 01/04/2023 GRNLOCYT 70.6 01/04/2023 LYMPHOCYT 22.1 01/04/2023 MONOCYTELEC 4.5 01/04/2023 EOSINOPHILS 2.2 01/04/2023 BASOPHILS 0.4 01/04/2023 GRNLOCTYABS 5.9 03/23/2010 LYMPHOCYTABS 2.16 01/04/2023 MONOSABSOLU 0.5 03/23/2010 EOSINOPHLABS 0.22 01/04/2023 BASOPHILSABS 0.0 03/23/2010 PLATELET 210 01/04/2023 MPV 10.0 01/04/2023 Lab Results Component Value Date ALT 46 01/04/2023 AST 30 01/04/2023 ALKPHOS 85 01/04/2023 BILITOTAL 0.2 01/04/2023 BILIDIRECT 0.1 02/13/2012 Lab Results Component Value Date SODIUM 138 01/04/2023 POTASSIUM 4.3 01/04/2023 CHLORIDE 105 01/04/2023 CO2 30 01/04/2023 BUN 11 01/04/2023 CREATSERUM 0.74 01/04/2023 GLUCOSE 91 01/04/2023 CT chest:12/2021 Pleural parenchymal scarring in the apices. Emphysema. Left upper lobe wedge or section. Lobular nodule in the azygos esophageal recess of the right lower lobe measures 0.6 x 0.8 cm, previously 0.6 x 0.7 cm although this measurement has not significantly changed, this nodule has grown slowly over time since April 2018 when it was first seen. PET: 1) Lobular nodule in the right lower lobe does not demonstrate metabolic activity, nonspecific. A right lower lobe groundglass nodule with central cavitation more laterally demonstrates faint to mild metabolic activity, indeterminate. Recommend close attention on follow-up to rule out a progressive process. 2. Nodular consolidation in the apical left upper lobe is new since prior CT chest and demonstrates focal moderate to intense metabolic activity. Query infectious/inflammatory etiology. Attention on follow-up. Pulmonary Function Test 06/13/2018 01/17/2022 FVC-Pre 3.28 2.55 FVC-%Pred-Pre 99 79 FEV1/FVC-Pre 58 41 FEV1-%Pred-Pre 74 41 FEV1-Pre 1.9 1.04 TLCPleth-%Pred-Pre 125 134 TLCPleth-Pre 6.27 6.69 DLCOcor-%Pred-Pre 92 61 DLCOunc-Pre 17.75 11.43 Assessment and Plan: Chin was seen today for new patient. Diagnoses and all orders for this visit: COPD- Centrilobular emphysema, significant upper lobe Active Smoker- RLL nodule- slowing increasing - Overnight oximetry reviewed, no nocturnal oxygen needs currently - PET: the RLL nodule- does not have metabolic activity/ however mild metabolic activity noted in nodular lesion in DARRYL and RLL GGO - Smoking cessation counseling: Nicotine Patches; Informed patient that she is progressively getting worse and she may still have some surgical options if she stops smoking - Tiotropium (SPIRIVA HANDIHALER) 18 MCG inhalation capsule; Inhale 1 capsule daily - Dulera - Albuterol prn - Ct chest Within 6-8 weeks. documented in this encounter [facility] 01-09-2023 History of Present illness Narrative CC Chief Complaint Patient presents with Spine - Follow-up Follow-up HPI Chin Whiting is here to follow up on neck pain. Patient was last seen by Nataly Grimes CNP on 08/17/2021 for follow up after C7/T1 ILESI which gave her 75% relief of her symptoms. Today she reports that her neck pain has slowly been increases and now it is to the point where she is ready for another injection. 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 Chronic obstructive pulmonary disease (COPD) COVID-19 05/2021 Depression Heel fracture 03/21/2014 right heel Lung nodule s/p open lung biopsy, path benign Migraines Neck pain s/p cervical steroid injection Pneumonia 2002 Whooping cough Surgical history: Past Surgical History: Procedure Laterality Date COMPLETE EXTRACTION OF TEETH 08/26/2018 COLONOSCOPY DIAGNOSTIC N/A 05/03/2018 Laterality: N/A; Surgeon: Steven Gardner MD; Location: [facility] [place] COLONOSCOPY FOR COLORECTAL CANCER SCREENING HIGH RISK INDIVIDUAL N/A 05/02/2018 Laterality: N/A; Surgeon: Rohit Rojas MD; Location: [facility] [place] LUNG BIOPSY 03/24 for lung nodule AMPUTATION FINGER OR HAND 2007 L 5th digit; chondrosarcoma HYSTERECTOMY, TOTAL ABDOMINAL 1996 ARM SURGERY 1995 fracture TONSILLECTOMY 1975 HYSTERECTOMY ~1995 OOPHORECTOMY Bilateral ~1995 Review of Systems (relevant): General/Constitutional: no fevers, night sweats, unintentional wt loss, no disturbed sleep, no fatigue Eyes:no acute vision changes Respiratory: no dyspnea Cardio: no Chest pain GI: no bowel incontinence, no constipation : no bladder incontinence, no urgency MSK: + neck pain Neuro: no weakness, no numbness/tingling, no saddle anesthesia Heme: no easy bruising, bleeding Psych: no acute mood changes, SI or HI Skin: no new rashes Physical Examination: Constitutional: Alert and oriented. Well developed, without distress. Vital signs: Pulse 91 Temp 96.5 F (35.8 C) Ht 1.651 m (5' 5") Wt 43.1 kg (95 lb) SpO2 95% BMI 15.81 kg/m Smoking Status Every Day HENT: Normocephalic, atraumatic. Tongue and gingiva are pink without lesions. Eyes: Extraocular motions are normal. Pupils are equal, round, and conjunctiva clear. Cardiovascular: No peripheral edema noted. Pulmonary/Chest: Respirations are full and non labored. Chest wall without deformity. Abdominal: Abdomen soft and nondistended. No tenderness to palpitation noted. Skin: Skin is warm, dry and intact. No rash noted. No cyanosis or jaundice. Musculoskeletal: Cervical spine range of motion: Flexion 70/90 degrees, extension 60/70 degrees, lateral flexion 45/45 degrees on the right and 45/45 degrees on the left, rotation leftward 70/90 degrees and rotation rightward 70/90 degrees. no tenderness to palpation at neck or para spinal muscles. Muscle Strength Shoulder Abduction (R5 / L5), Elbow Flexion (R5 / L5), Elbow Extension (R5/ L5), Finger Flexion (R5 / L5), Finger Extension (R5 / L5), Finger Abduction (R5 / L5), Thumb Abduction (R5 / L5) Spurling Test: - bilat Shoulder AROM: intact with flexion, ER, IR Scapular motion: no winging, abnormal movements detected Empty Cans: - Marcus-Lowell: - Speeds: - Gait: able to toe/heel walk, tandem gait Neurological - alert, oriented, normal speech, no focal findings or movement disorder noted, moving all limbs purposefully, sensation intact to light touch to bilat ULs and LLs, cranial nerves II through XII grossly intact Hoffmans: negative bilaterally Ankle clonus: none Reflexes: Right - Biceps: 1+ Triceps: 1+ Brachioradialis: 1+ Left - Biceps: 1+ Triceps: 1+ Brachioradialis: 1+ Extremities - no pedal edema, no clubbing or cyanosis Diagnostic Studies: MRI SPINE CERVICAL WITHOUT CONTRAST, 07/23/2018 FINDINGS: Straightening of the septa cervical lordosis. Slight anterolisthesis of C7 over T1. Vertebral bodies are within normal limits in height and marrow signal. Prevertebral and paraspinal soft tissues are within normal limits. Multilevel mild disc height loss and desiccation, most pronounced at C5-C6. Visualized spinal cord is within normal limits in caliber and signal. Craniocervical junction and visualized posterior fossa are within normal limits. By levels: C1-C2: Atlanto-axial relationship is within normal limits. C2-C3: No disc herniation, cervical stenosis, or foraminal stenosis. C3-C4: Posterior disc osteophyte complex and a small superimposed central zone disc protrusion. Bilateral uncovertebral hypertrophy. Mild canal stenosis. No significant foraminal stenosis. C4-C5: Posterior disc osteophyte complex with a superimposed central canal disc protrusion abutting the spinal cord. Bilateral uncovertebral hypertrophy. Moderate spinal stenosis. No significant foraminal stenosis. C5-C6: Large posterior disc osteophyte complex abutting the spinal cord. Left greater than right uncovertebral hypertrophy. Moderate canal stenosis. Moderate-severe left and mild right foraminal stenosis. C6-C7: Posterior disc osteophyte complex. Bilateral uncovertebral hypertrophy. Left facet hypertrophy. Mild canal stenosis. No significant foraminal stenosis bilaterally. C7-T1: Minimal anterolisthesis with some uncovering of the disc. No significant canal or foraminal stenosis. IMPRESSION: Degenerative changes as described in the body the report. Moderate spinal stenosis at C3-C4 C5-6. Moderate-severe left and mild right foraminal narrowing at C5-6. I personally viewed and interpreted these images and I have reviewed and approved this report. Medications: Current Outpatient Medications Medication Sig Calcium Carb-Cholecalciferol 600-10 MG-MCG tablet TAKE 1 TABLET BY MOUTH TWICE A DAY WITH MEALS DISABILITY PLACARD Disability placard end date 11/09/2027 Dulera 100-5 MCG/ACT Aerosol INHALE 2 PUFFS BY MOUTH EVERY 12 HOURS. fluticasone 50 MCG/ACT Suspension nasal spray 1 spray by Nasal route daily. guaiFENesin (Mucinex) 600 MG Tab SR 12 HR tablet SR Take 1 tablet by mouth 2 times daily. Magnesium Oxide 500 MG tablet Take 1 tablet by mouth daily. Memantine 5 MG tablet Take 1 tablet by mouth 2 times daily. Multiple Vitamin (multivitamin) capsule Take 1 capsule by mouth daily. nicotine 21 MG/24HR Patch [address] 1 PATCH ON SKIN EVERY 24 HOURS. Ondansetron 4 MG Tab Dispersible tablet Take 1 tablet by mouth every 8 hours as needed for Nausea / Vomiting. Rosuvastatin 10 MG tablet Take 1 tablet by mouth daily. Spiriva Respimat 2.5 MCG/ACT Aero Soln inhaler INHALE 2 PUFFS BY MOUTH DAILY Tizanidine 2 MG tablet Take 1 tablet by mouth 3 times daily. calcium carbonate-vitamin D 600mg-400units 600-400 MG-UNIT tablet Take 1 tablet by mouth 2 times daily with meals. (Patient not taking: Reported on 01/04/2023) ipratropium-albuterol 0.5-2.5 (3) MG/3ML nebulizer solution Take 3 mL by nebulization every 4 hours as needed for Wheezing, Respiratory Distress, Breathing Treatment, Cough or Shortness of Breath. Assessment and Plan ICD-10-CM 1. DDD (degenerative disc disease), cervical M50.30 2. Cervical radiculopathy M54.12 - C7/T1 ILESI - last injection was Jul 2022 and lasted for 5-6 months with 75% relief of pain - follow up one month after injection for condition update Orders: Orders Placed This Encounter Procedures SCHEDULE PROCEDURE Referral Priority: Routine Referral Type: Surgical Number of Visits Requested: 1 Diego Verma Ba MSN, GATE SHEAR OPERATOR-PUBLIC SPEAKING PROFESSOR Certified Nurse Practitioner Department of Neurosurgery [facility] documented in this encounter [facility] 01-09-2023 History of Present illness Narrative Patient offered a medical banana grader for sensitive exam. Pt declined documented in this encounter [facility] 12-28-2022 History of Present illness Narrative Chin presents for scheduled appointment. HPI: Chin Whiting is a 62 y.o. female seen today for: Headaches- Last seen 11/07 with c/o increasing headaches- States she feels like her headaches have become progressively worse between and . States this is also the same time she started having more issues with her right foot. Describes headaches as located all around her head. Describes as sharp, pressure, and throbbing. States the pain radiates back to her neck. Endorses nausea with headaches. States the headaches occur suddenly without warning. States rest for 10 minutes -30 minutes Helps to alleviate. Denies known triggers. Has gotten injections in her head previously and this has helped with managing. Plan was to assist with re-establishing with Neurology for management of cervicogenic headaches. She was seen by Neurology on 11/21 with plan to obtain brain MRI due to change in character of her headaches. Has done PT in the past and did not find this to be helpful. Recommendation for trial of Tizanidine 2mg at bedtime with consideration of trigger point injections. MRI demonstrated normal findings. Today she states that she is having daily headaches that are lasting 2-3 hours a day. Worsening. States she feels like the pain is pulsing up and down her spine. States she has not felt like she has been able to function. States she has been eating "like crazy" but endorses constant nausea. Denies vomiting, diarrhea, or constipation. States she has been taking Tizanidine but has not noticed a difference in her pain symptoms. States she does not feel like Tylenol or her edibles are alleviating as they used to. States her headaches feel like a tight band to the top of her head. States the last time she had these headaches was when she had cancer. States she has been experiencing increased pain to her right lateral ankle and foot. 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 Has hx of previous heel fracture. Has not followed up with podiatry for further evaluation of symptoms. I have reviewed the patient's medical and social history, in detail, and updated the computerized patient record. Health Maintenance Topic Date Due ZOSTER (SHINGLES) VACCINE (1 of 2) Never done COVID-19 VACCINE (3 - Moderna series) 01/18/2021 COLONOSCOPY 05/03/2021 MAMMOGRAM SCREENING DISCUSSION 09/22/2022 INFLUENZA VACCINE (Season Ended) 2023 TETANUS 04/05/2025 PNEUMOCOCCAL VACCINE SERIES (3 - PPSV23 if available, else PCV20) 2026 LIPID SCREENING 11/08/2027 TDAP (ADULT) Completed HEPATITIS C VIRUS SCREENING Completed HIV SCREENING DISCUSSION Addressed CERVICAL CANCER SCREENING DISCUSSION Discontinued COLORECTAL CANCER SCREENING DISCUSSION Discontinued REVIEW OF SYSTEMS: Unless noted in HPI, all other systems have been reviewed and are negative for complaint. PHYSICAL EXAMINATION: Blood pressure 116/79, pulse 90, temperature 97 F (36.1 C), temperature source Temporal, resp. rate 16, height 1.626 m (5' 4"), weight 42.3 kg (93 lb 3.2 oz), SpO2 97 %, not currently . Body mass index is 16 kg/m . Physical Exam Vitals reviewed. Constitutional: Appearance: Normal appearance. She is well-developed and well-groomed. Eyes: General: Lids are normal. Extraocular Movements: Extraocular movements intact. Conjunctiva/sclera: Conjunctivae normal. Pupils: Pupils are equal, round, and reactive to light. Cardiovascular: Rate and Rhythm: Normal rate and regular rhythm. Pulses: Radial pulses are 2+ on the right side and 2+ on the left side. Dorsalis pedis pulses are 1+ on the right side. Posterior tibial pulses are 1+ on the right side. Heart sounds: Normal heart sounds, S1 normal and S2 normal. Pulmonary: Effort: Pulmonary effort is normal. Breath sounds: Normal breath sounds and air entry. Musculoskeletal: Cervical back: Pain with movement, spinous process tenderness and muscular tenderness present. Right lower leg: No edema. Left lower leg: No edema. Right foot: Deformity (pronounced deformity at right heel/lateral malleolus) present. Feet: Right foot: Skin integrity: No warmth (Cool). Comments: Delayed capillary refill noted to right foot Neurological: General: No focal deficit present. Mental Status: She is alert and oriented to person, place, and time. Psychiatric: Attention and Perception: Attention normal. Mood and Affect: Mood normal. Speech: Speech normal. Behavior: Behavior normal. Behavior is cooperative. Thought Content: Thought content normal. ASSESSMENT AND PLAN: Chin was seen today for headache. Diagnoses and all orders for this visit: Cervicogenic headache - Magnesium Oxide 500 MG tablet; Take 1 tablet by mouth daily. Discussed contacting Neurology to update on headaches to discuss next steps for evaluation and treatment. Discussed trialing Magnesium Oxide to try and help with reducing pain and inflammation. Encouraged to trial use of cold compresses to help with managing acute pain in addition to warm compress, massage, and stretching to help with reducing muscle tension. Right foot pain - XR CALCANEUS RIGHT; Future - XR ANKLE RIGHT 3+ VIEWS; Future - VASC DUPLEX ARTERIAL EXTREMITY LOWER RIGHT; Future Given patient's worsening pain and concern for possible vascular impairment as well as possible recurrence of chondrosarcoma given history of previous heel fracture and progression of symptoms, discussed pursuing further osseous imaging as well as vascular imaging to determine need for additional referral and treatment assistance. Return in about 3 months (around 03/30/2023), or if symptoms worsen or fail to improve, for Follow Up. Orders Placed This Encounter XR CALCANEUS RIGHT XR ANKLE RIGHT 3+ VIEWS VASC DUPLEX ARTERIAL EXTREMITY LOWER RIGHT AMB REFERRAL TO DIAGNOSTIC ONCOLOGY CLINIC Magnesium Oxide 500 MG tablet Requested Prescriptions Signed Prescriptions Disp Refills Magnesium Oxide 500 MG tablet 90 tablet 1 Sig: Take 1 tablet by mouth daily. I discussed my impression and plan of care in detail with the patient The risks and benefits of treatment plan and medications and vaccines, if received today, were extensively explained to the patient, who clearly voiced understanding and agreement. Patient advised to continue current medication regimen and new medication, if prescribed, were also reviewed in detail during the visit today. Patient was given the opportunity to ask questions about their condition and I answered all the questions to the best of my ability and to the patient s satisfaction & patient voiced understanding. Patient advised to check with their pharmacist if they are getting the right dosage as was prescribed to them. Patient advised to follow up with this clinic as recommended. However, reassurance was provided that in the interim, this office is always available to respond to questions, concerns and needs. Patient advised to call the office with any questions or concerns. STEVEN Cabrera documented in this encounter [facility] 12-28-2022 Instructions STEVEN Cabrera - 12/28/2022 10:00 AM EDT Please call [phone] to schedule the vascular study Please call [phone] to schedule with Neuro documented in this encounter [facility] 11-21-2022 History of Present illness Narrative I appreciated the opportunity to see your patient today for initial consultation at the [facility] today on 11/21/2022. As you know, Chin Whiting is a 62 y.o. 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 She saw Penelope Holman APN and myself once six years ago, And trialled gabapenttin for her headaches and neck pain, but was sedating. She had bilateral greater occipital nerve blocks and was helpful at that time. She has not had trigger point injections. She complains of headaches with nausea, that radiate usually occipitally to frontally, without photophobia, and no phonophobia, and last for hour or less most days, neck pain is persistent, she denies focal weakness or radicular symptoms. She has history of COPD, depression, elevated cholesterol. She is still a cigarette smoker, does not use alcohol. Review of Systems not mentioned above includes: sleeps on floor with one pillow, regular meals, is avid dry cleaning counter clerk, Adequate fluids, minima caffeine. She has tried neck physical therapy in past and found not to be helpful. The patient denies any significant findings related to cognitive difficulties, weight change, fatigue, fever, lightheadedness, vertigo, hearing loss, tinnitus, visual change, swallowing abnormalities, speech changes, weakness, numbness, incoordination, chest pain, palpitations, shortness of breath, abdominal pain, nausea/vomiting, diarrhea, constipation, bowel incontinence, urinary incontinence, rash, heat/cold intolerance, sweating abnormalities. has a past medical history of Adenoid hypertrophy (05/2010), Back pain, Cardiac angina, Chondrosarcoma nos (1999), Chronic obstructive pulmonary disease (COPD), COVID-19 (05/2021), Depression, Heel fracture (03/21/2014), Lung nodule, Migraines, Neck pain, Pneumonia (2001), and Whooping cough. She has no past medical history of Exposure to hazardous chemical or History of radiation exposure. has a past surgical history that includes tonsillectomy (1975); hysterectomy, total abdominal (1996); amputation finger or hand (2007); arm surgery (1995); lung biopsy (03/24); colonoscopy for colorectal cancer screening high risk individual (N/A, 05/02/2018); colonoscopy diagnostic (N/A, 05/03/2018); complete extraction of teeth (08/26/2018); oophorectomy (Bilateral, ~1995); and hysterectomy (~1995). Current Outpatient Medications: Calcium Carb-Cholecalciferol 600-10 MG-MCG tablet, TAKE 1 TABLET BY MOUTH TWICE A DAY WITH MEALS, Disp: 180 tablet, Rfl: 3 calcium carbonate-vitamin D 600mg-400units 600-400 MG-UNIT tablet, Take 1 tablet by mouth 2 times daily with meals., Disp: 60 tablet, Rfl: 11 DISABILITY PLACARD, Disability placard end date 11/09/2027, Disp: 1 Each, Rfl: 0 Dulera 100-5 MCG/ACT Aerosol, INHALE 2 PUFFS BY MOUTH EVERY 12 HOURS., Disp: 13 g, Rfl: 1 fluticasone 50 MCG/ACT Suspension nasal spray, 1 spray by Nasal route daily. 1 spray into each nostril daily, Disp: 16 mL, Rfl: 1 guaiFENesin (Mucinex) 600 MG Tab SR 12 HR tablet SR, Take 1 tablet by mouth 2 times daily., Disp: 180 tablet, Rfl: 1 Multiple Vitamin (multivitamin) capsule, Take 1 capsule by mouth daily., Disp: , Rfl: nicotine 21 MG/24HR Patch 24 HR patch, PLACE 1 PATCH ON SKIN EVERY 24 HOURS., Disp: 28 patch, Rfl: 3 Rosuvastatin 10 MG tablet, Take 1 tablet by mouth daily., Disp: 90 tablet, Rfl: 1 tiotropium (Spiriva Respimat) 2.5 MCG/ACT Aero Soln inhaler, Inhale 2 puffs daily., Disp: 4 g, Rfl: 0 ipratropium-albuterol 0.5-2.5 (3) MG/3ML nebulizer solution, Take 3 mL by nebulization every 4 hours as needed for Wheezing, Respiratory Distress, Breathing Treatment, Cough or Shortness of Breath., Disp: 3 mL, Rfl: 0 Tizanidine 2 MG tablet, Take 1 tablet by mouth 3 times daily., Disp: 30 tablet, Rfl: 5 Allergies Allergen Reactions Azithromycin Anaphylaxis Other reaction(s): Anaphylaxis, AOF reports that she has been smoking cigarettes. She has never used smokeless tobacco. She reports current drug use. Drug: Marijuana. She reports that she does not drink alcohol. family history includes Aneurysm in her brother; Bleeding or Clotting Problems in her son; Cancer- Other in her paternal uncle; Diabetes in her mother and paternal grandfather; Heart Failure in her son; Hemachromatosis in her father; Hypertension in her mother; Other - Specify in her cousin, father, mother, paternal grandmother, sister, son, and son. Physical Examination: Blood pressure 139/68, pulse 93, temperature 97.2 F (36.2 C), temperature source Infrared, height 1.626 m (5' 4"), weight 42.7 kg (94 lb 3.2 oz), not currently . General- No acute distress. CV: RRR with no significant murmer appreciated today. Ext: No significant edema, nontender. Eyes: Visual holloway are full. Discs are flat. Skin: No significant overt rashes. Neck: significant tenderness paraspinals right greater than left, and also bilateral trapezii muscle groups. Neurologic Examination- The patient is awake, alert, and appropriately oriented. Language is intact. Cranial nerves are intact demonstrating PERRL, EOMI, facial sensation and strength symmetric and intact, normal palate raise, tongue midline. Motor exam is 5/5 throughout with normal tone and bulk. No pronator drift. Sensory exam is intact. Cerebellar reveals no significant dysmetria. Gait reveals no significant ataxia. Patient is able to heel-toe. Deep tendon reflexes are 2+ and symmetric with downgoing plantars bilaterally and no clonus. Impression/plan: cervicogenic headaches, and some tension component secondary to her cervicogenic headache, and DJD of cervical spine, obtain brain MRI with change in character of headaches, more frequent, and severe, with nausea, I reviewed her cervical spine x rays and has notable DJD of cervical spine, She does not want to pursue physical therapy of neck since not found to be helpful in past, Good lifestyle practices, trial of low dose tizanadine 2 mg at bedtime, Consider trigger point injections to neck, will apply for prior authorization, with most of pain, paraspinals and trapezii at this time. She is agreeable to plan. Follow up with Sparkle Galicia APN in three months Thank you again for this consultation and I appreciate the opportunity to take part in the care of this patient. documented in this encounter [facility] 11-21-2022 Instructions Shweta Stoner MD - 11/21/2022 8:45 AM EDT Please keep diary of headaches, regular meals, regular sleep, adequate hydration, minimal caffeine. Tizanadine 2 mg at bedtime, consider trigger point injections to neck. RTC in three to four months. Will do prior authorization for injections to neck. Brain MRI. documented in this encounter [facility] 11-07-2022 History of Present illness Narrative SUBJECTIVE Chin Whiting 62 y.o. female Chief Complaint Patient presents with Physical Pt presents today for physical Headache Patient states she still having really bad headaches. Presents with her daughter today. Annual Physical: Diet: Well-rounded diet- vegetables, fruits, and proteins. Eats out/takes out rarely. Eats at least 2 meals per day, but usually picks throughout the day. Eats sweets-chocolate. Drinks Dillon karen if she drinks pop. Does drink juice, rarely. Does drink coffee throughout the day. Drinking water thoughout the day. Exercise: "I am constantly moving every day" Sleep: Getting about 4-5-8 hours per night; takes naps in the afternoon. feels well-rested. Stress:Endorses increased stress recently related to a number of friends and family members dying and a friend who almost committed suicide; endorses good support system Dental Health: Has dentures and has not had issues with them Eye Health: Regularly, every year. Currently smoking 10 cigarettes a day (some days more, some days less). States she has been under increased stress for the past 3 weeks, but is hoping to refocus on cessation Women's Health: LMP: No LMP recorded. Patient has had a hysterectomy. Periods: No longer having Sexually Active: Denies Last Pap: S/p total hysterectomy Last Mammogram: Ordered today Last Colon Cancer Screen: Ordered colonoscopy today OB History Para Term AB Living 6 6 6 0 0 5 SAB IAB Ectopic Molar Multiple Live Births 0 0 0 0 0 6 PHQ9 Depression Screening: PHQ 9 Depression Scale 11/07/2022 09/22/2021 12/31/2020 Little interest or pleasure in doing things Not at all Not at all Not at all Feeling down, depressed, or hopeless Not at all More than half the days Not at all Trouble falling or staying asleep, or sleeping too much Not at all Not at all - Feeling tired or having little energy Not at all Not at all - Poor appetite or overeating Not at all Not at all - Feeling bad about yourself or that you are a failure or have let yourself or your family down Not at all Not at all - Trouble concentrating on things such as reading the newspaper or watching television Not at all Several days - Moving or speaking so slowly that other people could have noticed Not at all Not at all - Thoughts that you would be better off or hurting yourself in some way Not at all Not at all - If you checked off any problems, how difficult have these problems made it for you to do your work, take care of things at home, or get along with other people? Not difficult at all Not difficult at all - PHQ2/9 Total Score 0 3 0 Fall Screen: Fall Screen Has fallen within the past 3 months? Yes [] No [x] Needs assistance with mobility (i.e. other person, wall, cane, etc.) Yes [] No [x] Problems with cognition/memory? Yes [] No [x] Chart Review (see relevant sections in the electronic medical record) Past Medical History reviewed and updated as necessary? Yes [x] No [] Past Surgical History reviewed and updated as necessary? Yes [x] No [] Family History reviewed and updated as necessary? Yes [x] No [] Social History and Habits reviewed and updated as necessary? Yes [x] No [] Immunizations reviewed and updated as necessary Yes [x] No [] Medication List reviewed and updated as necessary? Yes [x] No [] Safety Screening: Lives with family members Intimate Partner Violence Screening: Have you ever been in a relationship where your partner has pushed or slapped you? No. Have you ever been in a relationship where your partner has threatened you with violence? No. Have you ever been in a relationship where your partner has thrown, broken, or punched things? No. C/o persistent headaches- States she feels like her headaches have become progressively worse between and . States this is also the same time she started having more issues with her right foot. Describes headaches as located all around her head. Describes as sharp, pressure, and throbbing. States the pain radiates back to her neck. Endorses nausea with headaches. States the headaches occur suddenly without warning. States rest for 10 minutes -30 minutes Helps to alleviate. Denies known triggers. Has gotten injections in her head previously and this has helped with managing. Endorses coughing, chest pain, SOB. Daughter states that her pulse ox levels have been running low. States her levels have dropped down to 78%. She has home oxygen and put it on and was able to recover without issue. States her coughs are productive. States she is no longer taking Mucinex twice a day due to running out of medications. Is using Spiriva and Dulera. States when she starts coughing she feels like she has large "baby feet" sticking out. States this is painful when it occurs. States these protrusions do reduce to normal on their own. Denies constipation, diarrhea, or abdominal pain. No problems updated. Review of Systems: General ROS: Denies any fevers/chills, fatigue, abnormal weight loss, or changes in appetite. HEENT ROS: +headaches. Denies vision changes, hearing changes, runny nose, congestions, sore throat. Respiratory ROS: + shortness of breath, coughing, and wheezing. Cardiovascular ROS: Denies any chest pain or palpitations. Gastrointestinal ROS: Denies any abdominal pain, nausea/vomiting, or changes in bowel movements. Genito-Urinary ROS: Denies any changes in urination. Denies any abnormal vaginal bleeding or discharge. Musculoskeletal ROS: Denies any musculoskeletal pain or change of function. Neurological ROS: Denies any balance changes, dizziness, or motor/sensory changes. Dermatological ROS: Denies any skin changes. Denies any rashes or lesions. Psychological ROS: Mood stable. No SI/HI. OBJECTIVE BP (!) 138/91 (BP Location: Left arm, BP Position: Sitting) Pulse 68 Temp 97.2 F (36.2 C) (Temporal) Resp 16 Ht 1.588 m (5' 2.5") Wt 43.6 kg (96 lb 3.2 oz) SpO2 96% BMI 17.31 kg/m Smoking Status Every Day Physical Exam Constitutional: Appears in no acute distress. Cooperative. HEENT: NC/AT. Conjunctiva clear. EOMI, PERRLA. Hearing grossly intact. External ear and nasal structures normal, bilaterally; TMs normal bilaterally. Nasal mucosa is pink without drainage. Nares patent. Mouth: Tongue and gingiva are pink without lesions. Dentition is normal for age. Neck: Full ROM. No evidence of cervical lymphadenopathy. No asymmetry, deviation, or masses. Normal thyroid. Lungs/Thorax: Unlabored breathing. Clear breath sounds in all lung holloway, bilaterally. No wheezes appreciated. Cardiovascular: Regular rate and rhythm. Normal S1 and S2. No murmurs, gallops, or rubs appreciated. No pitting edema. 2+ pedal pulses. Abdomen: Soft, non-distended, and nontender. Normoactive bowel sounds present. No hernias appreciated. Musculoskeletal: Function is grossly intact. Gait appropriate. Good spinal alignment and appropriate ROM. No spinal or paraspinal tenderness. Good tone in upper and lower extremities. Appropriate ROM in LE. Good contact representative strength. Skin: Warm and dry. No rashes or lesions appreciated. Psychiatry/Mental Health: Alert and oriented to person, place, and time. Mood and affect appropriate. Thought process and thought content are normal. ASSESSMENT & PLAN ICD-10-CM 1. Encounter for annual physical exam Z00.00 Today we counseled on health preventive strategies, screenings, and vaccinations. I also counseled on the use of sunscreen, seat belts in motor vehicles, safe sexual practice, avoidance of illicit substances, avoidance of drinking and driving. Screening for domestic violence was also completed at this visit and was negative. General tips for a healthy diet including eating a diet rich with fruits, vegetables, whole grains, and lean protein (fish, turkey, chicken) were discussed. Adequate exercise consisting of 30 minutes of moderate intensity exercise 5 days per week was also emphasized. 2. Screening for depression Z13.31 [place] BEHAV ASSMT W/SCORE & DOCD/STAND INSTRUMENT Provided information regarding mental health resources at [facility] 3. Encounter for screening mammogram for malignant neoplasm of breast Z12.31 MAMMO SCREENING BILATERAL Due for mammogram. Patient agreeable to referral 4. Screening for colon cancer Z12.11 SCREENING COLONOSCOPY Due for colonoscopy. Patient agreeable to referral 5. Cervicogenic headache G44.86 AMB REFERRAL TO NEUROLOGY COMPREHENSIVE METABOLIC PANEL CBC, EDIF, PLATELET TSH W/FT4 REFLEX Previously seen by Neurology for injections. Last seen in [address]. Will [address] new referral to assist with re-establishing. Discussed checking lab work for underlying causes. Discussed impact of marijuana and nicotine on contributing to headaches. Encouraged cessation efforts. Advised to notify if symptoms worsen 6. Panlobular emphysema J43.1 tiotropium (Spiriva Respimat) 2.5 MCG/ACT Aero Soln inhaler guaiFENesin (Mucinex) 600 MG Tab SR 12 HR tablet SR fluticasone 50 MCG/ACT Suspension nasal spray [facility] Discussed impact of cigarette and marijuana smoking on lunch inflammation. Encouraged to schedule follow up with Pulmonology to discuss additional symptom management strategies. Encouraged smoking cessation. Advised to restart BID Mucinex, Flonase every day, and to continue use of Spiriva and Dulera as directed. Advised to notify if symptoms worsen or fail to improve. 7. Vitamin D deficiency E55.9 VITAMIN D (25-HYDROXY,TOTAL) Will recheck level given previous deficiency to determine need for continued supplementation. Encouraged to spend at least 15 minutes a day outside to further help with body's production of vitamin D. 8. Current smoker F17.200 LIPID PANEL W CALCULATED LDL Tobacco Cessation Plan: I provided tobacco cessation counseling. Risks, benefits and adverse effects of new medications have been discussed. We are in agreement that potential benefits outweigh the risks and will move forward with the plan as outlined above. In preparation for today's visit, I reviewed the pertinent portions of the medical record. I also took the opportunity to provide qjjh-by-huck counseling and education to Chin. MY PREVENTATIVE HEALTH CHECKLIST Screening / Treatment How Often? Recommended for Whom? Status Cancer Screening: -Colon Cancer Every 5-10 years All average risk men and women at age 50; USPSTF recommends against screening ?85 [x] Breast cancer -Breast exam & Mammogram Every 1 - 2 years Average risk women ? age 40, earlier if positive family history [x] Lung Cancer -Chest CT scan Every year Age 55-80 with with 30 pack-year smoking, current smokers or quit within 15 years [x] Cervical cancer -Pelvic exam with PAP smear Every 3 - 5 years, depending on previous results, +/- HPV testing Starting at age 21 (consider HPV testing after age ?30) May stop at age 65 if at average risk and 3 normal PAPs in a row [x] Vaccinations: -HPV Vaccination Series of 2-3 Ages 11-26; select patients between the ages of 27-45 [x] -Flu Vaccine Every year Everyone, especially in the Elderly [x] -Pneumococcal Vaccine (Pneumonia vaccine) Usually once All adults ? 65 y.o. All adults 19-64 with medical conditions include: Smokers, chronic lung conditions like asthma, COPD, chronic cardiovascular conditions, diabetes [x] -Shingles Two shot series All adults ? 60 y.o.; FDA: approved ?50y.o. [x] -Tdap (tetanus, diptheria and pertussis) Once, with Td booster shots every 10 years All adults 19 - 64 y.o.; Adults ? 65 contact with infants <12 months not previously vaccinated with Tdap (can do all ? 65 once) [x] Disease Screening: -Abdominal Aortic Aneurism Once Consider if heavy smoking history [] -Diabetes Every 3 years Those with BP >135/80 or those with other cardiovascular risks (age >45, obesity, certain ethnicities) [] -Cholesterol Every 5 years depending on risk factors All men and women ? 20 y.o. or men and women at increased risk ? age 20 Men ?35; Women ? 45 if increased risk [x] -HIV Once Ages 13-64 y.o. unless high risk [] -Osteoporosis Once, then every 3-5 years if needed Women ? 65 y.o. or >60 if with risk factors [] General Health: -Exercise AT LEAST 30 minutes a day, 3 days a week EVERYONE - that means YOU! [x] -Diet Mediterranean Diet, with lots of leafy green veggies [x] STEVEN Cabrera documented in this encounter [facility] Instructions STEVEN Cabrera - 11/07/2022 9:40 AM EDT [facility] [employer] is an available tool to securely access your online medical information. Please ask to enroll during any [facility] appointment. Paperwork Please allow 2 weeks to complete disability, FMLA, and insurance paperwork Medication Refills Please allow 24 hours for refills on medication Sunday-Sunday. You can also call your pharmacy to ask them to send refill requests to us electronically. Phone Call and My Chart messages: Please allow 24 hours for response Sunday-Sunday for phone calls and 2 business days for [employer] messages. If you are unable to keep a scheduled appointment in the future, please call the office to cancel at least 24 hours in advance; cancelling your appointment with less than 24 hours notice is considered a no show. This way, we may use the appointment for someone else who needs medical care. If you miss three (3) appointments in one year without calling to cancel in advance, you are at risk for being dismissed from the [facility] Family Practice offices. The best way to avoid this is to call when you need to change or cancel an appointment. If you have medical needs over the weekend or after hours that can't wait here are a few options for care: -[facility]: Medical care for non-life threatening cuts and hernandez, minor sprains and strains, colds and flu, as well as stiches, splints and urgent x-rays. Hours: Sunday - Sunday 4 pm - 9:30 pm. Sunday and Sunday 10 am - 5:30 pm. Locations: Outpatient Care [facility] [phone]. [facility] Outpatient Care [phone]. [facility] [phone] -Telehealth Immediate Care: Same day video or phone visits for non life threatening illnesses or injury or common health condition. Hours: Sunday - Sunday 8 am - 8 pm and Sunday and Sunday 10 am - 6 pm Schedule by calling [phone] or via my chart If you need to reach the office for emergency after hours please call the office at [phone] and it will direct you to our after hours emergency senior pensions administrator provider. [facility] [address] [place] [address] P:[phone] F:[phone] To help with achieving your wellness goals: 1. Drink more water - goal is 60-90 ounces per day 2. Have routine dental care for overall health 3. Eat at least 5 servings of fruits and vegetables per day--Try to eat a variety of colors on your plate at each meal 4. Have at least 30 min physical activity-like walking-daily 5. Spend at least 10 minutes a day engaged in a stress reducing activity--exercising, meditation, journaling, dancing, etc. 6. Get at least 7-9 hours of sleep a night 7. Do 1 random act of kindness a day--this will improve your mood as well as have a positive impact on someone else. If you are struggling with any of these things, please let me know how I can further assist you in meeting these goals. A mammogram has been ordered for you today due to it being a necessary annual screening for breast cancer. 1. If you have not heard from this department within 2 weeks, please call to get yourself scheduled for an appointment. 2. If this department cannot see you within a reasonable time frame, call your insurance to obtain a list of facilities outside of [facility] who can see you. 3. If your mammogram was completed outside of [facility], please have your records sent to [facility] so your chart can stay updated. Please call [phone] to schedule with Neurology Please call [phone] to schedule with Pulmonology Please call [phone] to schedule with Spine center A colonoscopy has been ordered for you today due to it being a necessary screening for colon cancer. 1. If you have not heard from this department within 2 weeks, please call to get yourself scheduled for an appointment. 2. If this department cannot see you within a reasonable time frame, call your insurance to obtain a list of facilities outside of [facility] who can see you. 3. If your colonoscopy was completed outside of [facility], please have your records sent to [facility] so your chart can stay updated. The following attachments cannot be sent through Care Everywhere.Well Visit: 50 to 65 Year Women (British)documented in this encounter [facility] 11-22-2021 Note Formatting of this n ote might be different from the original. AVS reviewed with patient. IV removed without complication. Pressure dressing applied. Patient belongings gathered. Dressed and waiting on ride. All questions answered at this time. [facility] 11-22-2021 Miscellaneous Notes AVS reviewed with patient. IV removed without complication. Pressure dressing applied. Patient belongings gathered. Dressed and waiting on ride. All questions answered at this time. Problem: Patient Care Overview Goal: Plan of Care Review 11/22/2021 175 by Brianne Rush RN Outcome: Adequate for Discharge 11/22/2021 1521 by Brianne Rush RN Outcome: Ongoing Goal: Individualization & Mutuality 11/22/2021 175 by Brianne Rush RN Outcome: Adequate for Discharge 11/22/2021 152 by Brianne Rush RN Outcome: Ongoing Goal: Discharge Needs Assessment 11/22/20211758 by Brianne Rush RN Outcome: Adequate for Discharge 11/22/2021 152 by Brianne Rush RN Outcome: Ongoing Goal: Interdisciplinary Rounds/Family Conf 11/22/[id number] by Brianne Rush RN Outcome: Adequate for Discharge 11/22/2021 152 by Brianne Rush RN Outcome: Ongoing Problem: Patient Care Overview Goal: Plan of Care Review Outcome: Ongoing Goal: Individualization & Mutuality Outcome: Ongoing Goal: Discharge Needs Assessment Outcome: Ongoing Goal: Interdisciplinary Rounds/Family Conf Outcome: Ongoing Afternoon assessment completed at this time. No new changes unless documented. Patient currently resting comfortably in room. Safety measures maintained. Patient denies any needs at this time. Call light within reach Chin Whiting is a 61 y.o. 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 Chronic obstructive pulmonary disease (COPD) COVID-19 05/2021 Depression Heel fracture 03/21/2014 right heel Lung nodule s/p open lung biopsy, path benign Migraines Neck pain s/p cervical steroid injection Pneumonia 2002 Whooping cough Past Surgical History: Procedure Laterality Date COMPLETE EXTRACTION OF TEETH 08/26/2018 COLONOSCOPY DIAGNOSTIC N/A 05/03/2018 Laterality: N/A; Surgeon: Steven Gardner MD; Location: [facility] [place] COLONOSCOPY FOR COLORECTAL CANCER SCREENING HIGH RISK INDIVIDUAL N/A 05/02/2018 Laterality: N/A; Surgeon: Rohit Rojas MD; Location: [facility] [place] LUNG BIOPSY 03/24 for lung nodule AMPUTATION FINGER OR HAND 2007 L 5th digit; chondrosarcoma HYSTERECTOMY, TOTAL ABDOMINAL 1996 ARM SURGERY 1995 fracture TONSILLECTOMY 1975 HYSTERECTOMY ~1995 OOPHORECTOMY Bilateral ~1995 Social History Tobacco Use Smoking status: Current Every Day Smoker Packs/day: 0.33 Years: 30.00 Pack years: 9.90 Types: Cigarettes Smokeless tobacco: Never Used Tobacco comment: did smoke yesterday but trying to quit Substance Use Topics Alcohol use: No Comment: rare DNRCC-ARREST No active isolations Recent Vitals: Blood pressure 105/60, pulse 101, temperature 98.1 F (36.7 C), temperature source Oral, resp. rate 16, height 1.626 m (5' 4"), weight 44.1 kg (97 lb 3.2 oz), SpO2 93 %, not currently . Recent ABG/VBG: Home Medications: Prior to Admission Medications Prescriptions Last Dose Informant Patient Reported? Taking? DISABILITY PLACARD No No Sig: Disability placard end date 09/28/2022 Multiple Vitamin (multivitamin) capsule 11/21/2021 at Unknown time Yes Yes Sig: Take 1 capsule by mouth daily. budesonide 0.5 MG/2ML nebulizer suspension Past Week at Unknown time No Yes Sig: Inhale 2 mL every 12 hours. calcium carbonate-vitamin D 600mg-400units 600-400 MG-UNIT tablet 11/21/2021 at Unknown time No Yes Sig: Take 1 tablet by mouth 2 times daily with meals. fluticasone 50 MCG/ACT Suspension nasal spray 11/21/2021 at Unknown time No Yes Si spray by Nasal route daily. ipratropium-albuterol 0.5-2.5 (3) MG/3ML nebulizer solution 11/21/2021 No Yes Sig: Take 3 mL by nebulization every 4 hours as needed for Wheezing, Respiratory Distress, Breathing Treatment, Cough or Shortness of Breath. tiotropium (Spiriva Respimat) 2.5 MCG/ACT Aero Soln inhaler 11/21/2021 No Yes Sig: Inhale 2 puffs daily. Facility-Administered Medications: None Breath Sounds: Br S inspiratory and expiratory wheezes on L side, significant improvement post tx Current Orders: Duoneb Q4 Spiriva Q AM O2 @ 2L via NC Tx Indication: Wheezing that improves post tx Respiratory Plan of Care: 1) Continue duoneb Q4 2/2 wheezing with significant improvement post tx 2) Wean FiO2 as tolerated to room air or home O2 requirement (if applicable) 3) Encourage patient to cough and deep breathe The patients respiratory plan of care was updated by Michelle Suero RCP 11/22/2021 10:16 AM Problem: Patient Care Overview Goal: Plan of Care Review Outcome: Ongoing Goal: Individualization & Mutuality Outcome: Ongoing Goal: Discharge Needs Assessment Outcome: Ongoing Goal: Interdisciplinary Rounds/Family Conf Outcome: Ongoing Assessment updated at this time, call light in reach On admission to ET3, from ED a dual RN initial assessment of skin condition was performed by Raven Cavanaugh RN and Yulia Chopra, RN . Skin Assessment: Skin within defined limits:Yes Yvon Score: 21 LDA Added:No Raven Cavanaugh RN On admission to ET3, from ED a pre-fall huddle was performed by Raven Cavanaugh RN and Yulia Chopra, RN to assess fall risk and implement interventions. Visual communication tool in room is up to date? Yes Risk factors: History of falls? No Altered mobility and/or gait? Yes If patient has either risk factor identified above, what additional interventions were put in place to prevent a fall? Bed/Chair Exit Alarm? No Sitter/Video Sitter? No Restraints? No Other: Patient refused any recommended safety interventions? Yes Refusal escalated to Physician? No Patient education completed and charted? Yes Raven Cavanaugh RN Patient admitted under observation d/t SOB, possible COPD exacerbation, recent discharge approx 1 week ago for same. Discharge plan is home when stable, no needs anticipated. JAGDISH: 11/22/2021 11/21/21 1700 Patient Assessment Completed Patient Assessment Completed Screening Only Initial Discharge Planning Anticipated discharge disposition Home Transportation Available for Discharge Family or Friend Anticipated DME none Admission Assessment Reason for Admission SOB/COPD exac documented in this encounter [facility] 11-22-2021 Note Formatting of this n ote might be different from the original. Problem: Patient Care Overview Goal: Plan of Care Review 11/22/2021 1759 by Brianne Rush RN Outcome: Adequate for Discharge 11/22/2021 1521 by Brianne Rush RN Outcome: Ongoing Goal: Individualization & Mutuality 11/22/2021 175 by Brianne Rush RN Outcome: Adequate for Discharge 11/22/2021 1521 by Brianne Rush RN Outcome: Ongoing Goal: Discharge Needs Assessment 11/22/2021 1759 by Brianne Rush RN Outcome: Adequate for Discharge 11/22/2021 1521 by Brianne Rush RN Outcome: Ongoing Goal: Interdisciplinary Rounds/Family Conf 11/22/2021 175 by Brianne Rush RN Outcome: Adequate for Discharge 11/22/2021 1521 by Brianne Rush RN Outcome: [facility]ng[facility]ing [facility] History of Present illness Narrative Summary: Home O2 Eval Home Oxygen Testing Respiratory Therapy Service Home O2 Evaluation [facility] Respiratory Therapy Department [address] [place] [address] Chin Whiting [phone] Oxygen saturation at rest with room air was 89% Oxygen at rest was not required Oxygen Saturation with exertion on room air was 86% Oxygen Saturation with exertion on 1L oxygen was 89% Chin Whiting required 1L on exertion to maintain SpO2 over 87%. The patients Home O2 Evaluation with exertion was performed by Neymar [employer] 11/22/2021 3:36 PM 11/22/21 0015 Assessment Type ## Assessment-Evaluation initial RT Intervention Assessment-Evaluation Assessment Type general RT Reason for Assessment RT Protocol Patient Ed Activity Done initial instruction Care Plan Completed yes RT Acuity Assessment Tool RT Protocol Assessment initial mMRC Dyspnea Score 3 RT Modified Mickey Score 1 Combined Dyspnea Score 4 RT Acuity Level 2 Current Orders: Spiriva Qday Duoneb Q4 Tx Indication: Per Respiratory Therapy Directed Asthma and COPD Inhaler Protocol: acuity level 2 Respiratory Plan of Care: Patient has history of COPD PFTs on file showing obstruction w improvement after bronchodilator therapy Current smoker States to take Spiriva daily and duonebs Also stated was ordered Pulmicort at home but unable to pay for Patient states to get breathless during ADLs and requires rest Difficulty on flat surface for walking being difficult Would recommend, Spiriva, Dulera and PRN Albuterol The patient's respiratory plan of care was updated by Alek Rosales RCP 11/22/2021 12:16 AM documented in this encounter [facility] 11-22-2021 Note Formatting of this n ote might be different from the original. Problem: Patient Care Overview Goal: Plan of Care Review Outcome: Ongoing Goal: Individualization & Mutuality Outcome: Ongoing Goal: Discharge Needs Assessment Outcome: Ongoing Goal: Interdisciplinary Rounds/Family Conf Outcome: [facility] Note Formatting of this n ote might be different from the original. Afternoon assessment completed at this time. No new changes unless documented. Patient currently resting comfortably in room. Safety measures maintained. Patient denies any needs at this time. Call light within reach [facility] 11-22-2021 Hospital Discharge instructions Eren Mclean MD - 11/22/2021 2:41 PM EDT Discharge instructions from your inpatient doctor, Eren Mclean MD You were admitted to the hospital for COPD exacerbation. While you were here, we started you on prednisone and Dulera along with your home inhalers. After discharge, please do the following: Start taking Dulera two puffs every 12 hours. Continue your other inhalers. Take 40 mg of prednisone for another 3 days (end date 11/25). Follow up with your PCP and offset printing operator on 12/20. Please call [phone] to schedule your appointment with or if you have questions for Pulmonology. Please review the first page of your after-visit summary for a detailed list of medication changes, follow-up instructions and scheduled appointments. If you have any questions after your discharge, please call our office at [phone] and one of our Hospitalist Nurses will call you back. Eren Mclean MD Division of Hospital Medicine [phone] Georgina Cash RN - 11/21/2021 5:52 PM EDT Images from the original note were not included. Eating Healthy Foods: Care Instructions Your Care Instructions Eating healthy foods can help lower your risk for disease. Healthy food gives you energy and keeps your heart strong, your brain active, your muscles working, and your bones strong. A healthy diet includes a variety of foods from the basic food groups: grains, vegetables, fruits, milk and milk products, and meat and beans. Some people may eat more of their favorite foods from only one food group and, as a result, miss getting the nutrients they need. So, it is important to pay attention not only to what you eat but also to what you are missing from your diet. You can eat a healthy, balanced diet by making a few small changes. Follow-up care is a han part of your treatment and safety. Be sure to make and go to all appointments, and call your doctor if you are having problems. It's also a good idea to know your test results and keep a list of the medicines you take. How can you care for yourself at home? Look at what you eat Keep a food diary for a week or two and record everything you eat or drink. Track the number of servings you eat from each food group. For a balanced diet every day, eat a variety of: 6 or more ounce-equivalents of grains, such as cereals, breads, crackers, rice, or pasta, every day. An ounce-equivalent is 1 slice of bread, 1 cup of pklln-ga-mkb cereal, or cup of cooked rice, cooked pasta, or cooked cereal. 2 cups of vegetables, especially: Dark-green vegetables such as broccoli and spinach. [place] vegetables such as carrots and sweet potatoes. Dry beans (such as hansen and kidney beans) and peas (such as lentils). 2 cups of fresh, frozen, or canned fruit. A small apple or 1 banana or orange equals 1 cup. 3 cups of nonfat or low-fat milk, yogurt, or other milk products. 5 ounces of meat and beans, such as chicken, fish, lean meat, beans, nuts, and seeds. One egg, 1 tablespoon of peanut butter, ounce nuts or seeds, or cup of cooked beans equals 1 ounce of meat. Learn how to read food labels for serving sizes and ingredients. Fast-food and convenience-food meals often contain few or no fruits or vegetables. Make sure you eat some fruits and vegetables to make the meal more nutritious. Look at your food diary. For each food group, add up what you have eaten and then divide the total by the number of days. This will give you an idea of how much you are eating from each food group. See if you can find some ways to change your diet to make it more healthy. Start small Do not try to make dramatic changes to your diet all at once. You might feel that you are missing out on your favorite foods and then be more likely to fail. Start slowly, and gradually change your habits. Try some of the following: Use whole wheat bread instead of white bread. Use nonfat or low-fat milk instead of whole milk. Eat brown rice instead of white rice, and eat whole wheat pasta instead of white-flour pasta. Try low-fat cheeses and low-fat yogurt. Add more fruits and vegetables to meals and have them for snacks. Add lettuce, tomato, cucumber, and onion to sandwiches. Add fruit to yogurt and cereal. Enjoy food You can still eat your favorite foods. You just may need to eat less of them. If your favorite foods are high in fat, salt, and sugar, limit how often you eat them, but do not cut them out entirely. Eat a wide variety of foods. Make healthy choices when eating out The type of restaurant you choose can help you make healthy choices. Even fast-food chains are now offering more low-fat or healthier choices on the menu. Choose smaller portions, or take half of your meal home. When eating out, try: A veggie pizza with a whole wheat crust or grilled chicken (instead of sausage or pepperoni). Pasta with roasted vegetables, grilled chicken, or marinara sauce instead of cream sauce. A vegetable wrap or grilled chicken wrap. Broiled or poached food instead of fried or breaded items. Make healthy choices easy Buy packaged, prewashed, kcxni-pu-lhj fresh vegetables and fruits, such as baby carrots, salad mixes, and chopped or shredded broccoli and cauliflower. Buy packaged, presliced fruits, such as melon or pineapple. Choose 100% fruit or vegetable juice instead of soda. Limit juice intake to 4 to 6 oz ( to cup) a day. Blend low-fat yogurt, fruit juice, and canned or frozen fruit to make a smoothie for breakfast or a snack. Where can you learn more? Go to http://www.[employer].edu/ patiented. Enter T756 in the search box to learn more about 'Eating Healthy Foods: Care Instructions.' Interested in seeing a video go to https://[employer].edu/nisha eolibrary to see all video content. Current as of: March 23, 2021 Content Version: 13.2 [employer]. Care instructions adapted under license by your healthcare professional. If you have questions about a medical condition or this instruction, always ask your healthcare professional. [employer] disclaims any warranty or liability for your use of this information. The following attachments cannot be sent through Care Everywhere.COPD: General Info (British)documented in this encounter [facility] 11-22-2021 Note Formatting of this n ote is different from the original. Chin Whiting is a 61 y.o. 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 Chronic obstructive pulmonary disease (COPD) COVID-19 05/2021 Depression Heel fracture 03/21/2014 right heel Lung nodule s/p open lung biopsy, path benign Migraines Neck pain s/p cervical steroid injection Pneumonia 2002 Whooping cough Past Surgical History: Procedure Laterality Date COMPLETE EXTRACTION OF TEETH 08/26/2018 COLONOSCOPY DIAGNOSTIC N/A 05/03/2018 Laterality: N/A; Surgeon: Steven Gardner MD; Location: [facility] [place] COLONOSCOPY FOR COLORECTAL CANCER SCREENING HIGH RISK INDIVIDUAL N/A 05/02/2018 Laterality: N/A; Surgeon: Rohit Rojas MD; Location: [facility] [place] LUNG BIOPSY 03/24 for lung nodule AMPUTATION FINGER OR HAND 2008 L 5th digit; chondrosarcoma HYSTERECTOMY, TOTAL ABDOMINAL 1996 ARM SURGERY 1995 fracture TONSILLECTOMY 1975 HYSTERECTOMY ~1995 OOPHORECTOMY Bilateral ~1995 Social History Tobacco Use Smoking status: Current Every Day Smoker Packs/day: 0.33 Years: 30.00 Pack years: 9.90 Types: Cigarettes Smokeless tobacco: Never Used Tobacco comment: did smoke yesterday but trying to quit Substance Use Topics Alcohol use: No Comment: rare DNRCC-ARREST No active isolations Recent Vitals: Blood pressure 105/60, pulse 101, temperature 98.1 F (36.7 C), temperature source Oral, resp. rate 16, height 1.626 m (5' 4"), weight 44.1 kg (97 lb 3.2 oz), SpO2 93 %, not currently . Recent ABG/VBG: Home Medications: Prior to Admission Medications Prescriptions Last Dose Informant Patient Reported? Taking? DISABILITY PLACARD No No Sig: Disability placard end date 09/28/2022 Multiple Vitamin (multivitamin) capsule 11/21/2021 at Unknown time Yes Yes Sig: Take 1 capsule by mouth daily. budesonide 0.5 MG/2ML nebulizer suspension Past Week at Unknown time No Yes Sig: Inhale 2 mL every 12 hours. calcium carbonate-vitamin D 600mg-400units 600-400 MG-UNIT tablet 11/21/2021 at Unknown time No Yes Sig: Take 1 tablet by mouth 2 times daily with meals. fluticasone 50 MCG/ACT Suspension nasal spray 11/21/2021 at Unknown time No Yes Si spray by Nasal route daily. ipratropium-albuterol 0.5-2.5 (3) MG/3ML nebulizer solution 11/21/2021 No Yes Sig: Take 3 mL by nebulization every 4 hours as needed for Wheezing, Respiratory Distress, Breathing Treatment, Cough or Shortness of Breath. tiotropium (Spiriva Respimat) 2.5 MCG/ACT Aero Soln inhaler 11/21/2021 No Yes Sig: Inhale 2 puffs daily. Facility-Administered Medications: None Breath Sounds: Br S inspiratory and expiratory wheezes on L side, significant improvement post tx Current Orders: Duoneb Q4 Spiriva Q AM O2 @ 2L via NC Tx Indication: Wheezing that improves post tx Respiratory Plan of Care: 1) Continue duoneb Q4 2/2 wheezing with significant improvement post tx 2) Wean FiO2 as tolerated to room air or home O2 requirement (if applicable) 3) Encourage patient to cough and deep breathe The patients respiratory plan of care was updated by Michelle Suero RCP 11/22/2021 10:[address] [facility] 11-22-2021 Note Formatting of this n ote might be different from the original. Problem: Patient Care Overview Goal: Plan of Care Review Outcome: Ongoing Goal: Individualization & Mutuality Outcome: Ongoing Goal: Discharge Needs Assessment Outcome: Ongoing Goal: Interdisciplinary Rounds/Family Conf Outcome: Ongoing [facility] 11-22-2021 Note Formatting of this n ote might be different from the original. Assessment updated at this time, call light in reach [facility] 11-21-2021 Note Formatting of this n ote might be different from the original. On admission to ET3, from ED a dual RN initial assessment of skin condition was performed by Raven Cavanaugh RN and Yulia Chopra RN . Skin Assessment: Skin within defined limits:Yes Yvon Score: 21 LDA Added:No Raven Cavanaugh RN On admission to ET3, from ED a pre-fall huddle was performed by Raven Cavanaugh RN and Yulia Chopra RN to assess fall risk and implement interventions. Visual communication tool in room is up to date? Yes Risk factors: History of falls? No Altered mobility and/or gait? Yes If patient has either risk factor identified above, what additional interventions were put in place to prevent a fall? Bed/Chair Exit Alarm? No Sitter/Video Sitter? No Restraints? No Other: Patient refused any recommended safety interventions? Yes Refusal escalated to Physician? No Patient education completed and charted? Yes Raven Cavanaugh RN [facility] 11-21-2021 Note Formatting of this n ote is different from the original. Patient admitted under observation d/t SOB, possible COPD exacerbation, recent discharge approx 1 week ago for same. Discharge plan is home when stable, no needs anticipated. JAGDISH: 11/22/2021 11/21/21 1700 Patient Assessment Completed Patient Assessment Completed Screening Only Initial Discharge Planning Anticipated discharge disposition Home Transportation Available for Discharge Family or Friend Anticipated DME none Admission Assessment Reason for Admission SOB/COPD exac [facility] 11-21-2021 History and physical note Internal Medicine Admission History & Physical Patient: Chin Whiting, 1960, [id number] Physician: Eren Mclean MD, PGY1, Pager #[phone], [facility] Med A service Date of face to face patient encounter: 11/21/2021 Chief Complaint: Hypoxia History Of Present Illness: Chin Whiting is a 61 y.o. female with a PMH of COPD (not on O2 at home), tobacco use, chronic back pain, chondrosarcoma, COVID 19 (05/2021) presenting with hypoxia. She was admitted from 11/09 to 11/11 for COPD exacerbation. She was started on prednisone and antibiotics, but given low suspicion for pulmonary infection was discharged only on prednisone. She was on RA at time of discharge, and prescribed ICS, BRANDON and nebulizer. Patient reports following her discharge, she was not able to fill her Pulmicort due to insurance issues. She instead had been using albuterol every 4 hours since discharge. She said starting last night, she noted her SpO2 was in the low 80s (lowest observed was 79%). She states she was feeling SOB which progressively worsened throughout the night. She then presented to her PCP for hospital follow up, Where she was found to have SpO2 of 87% and was placed on 2 L NC with improvement to 91% and recommended to come to the ED. She reports a productive cough that has improved since discharge, producing clear thick mucus. Denies hemoptysis, fever, chills, sick contacts, sore throat, weight loss. She reports baseline rhinitis and occasional chest pain when she coughs hard. Regarding her COPD diagnosis, she is unsure when she was diagnosed. She does believe she was diagnosed with PFTs. She states besides the previous admission, she has never received steroids or antibiotics for a COPD exacerbation. She has never been intubated. She is a current smoker, reports she smoked 2 cigarettes yesterday. She has been smoking since age 17, generally believes she was smoking half a pack a day for that period, and then has been smoking 5 cigarettes a day for the last few years. She is not interested in quitting, but has quit for short periods of time. She states she quit before for her second son, who is now , and has no interest in quitting currently. She smokes marijuana daily, but last week has only been using edibles or tinctures. She denies any chemical exposures, but did have farming exposure growing up. Medical/Surgical History: 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 Chronic obstructive pulmonary disease (COPD) COVID-19 05/2021 Depression Heel fracture 03/21/2014 right heel Lung nodule s/p open lung biopsy, path benign Migraines Neck pain s/p cervical steroid injection Pneumonia 2002 Whooping cough Past Surgical History: Procedure Laterality Date COMPLETE EXTRACTION OF TEETH 08/26/2018 COLONOSCOPY DIAGNOSTIC N/A 05/03/2018 Laterality: N/A; Surgeon: Steven Gardner MD; Location: [facility] [place] COLONOSCOPY FOR COLORECTAL CANCER SCREENING HIGH RISK INDIVIDUAL N/A 05/02/2018 Laterality: N/A; Surgeon: Rohit Rojas MD; Location: [facility]OS[facility] [place] LUNG BIOPSY 03/24 for lung nodule AMPUTATION FINGER OR HAND 2007 L 5th digit; chondrosarcoma HYSTERECTOMY, TOTAL ABDOMINAL 1996 ARM SURGERY 1995 fracture TONSILLECTOMY 1975 HYSTERECTOMY ~1995 OOPHORECTOMY Bilateral ~1995 Social History: she reports that she has been smoking cigarettes. She has a 9.90 pack-year smoking history. She has never used smokeless tobacco. She reports current drug use. Drug: Marijuana. She reports that she does not drink alcohol. Family History: family history includes Aneurysm in her brother; Bleeding or Clotting Problems in her son; Cancer- Other in her paternal uncle; Diabetes in her mother and paternal grandfather; Heart Failure in her son; Hemachromatosis in her father; Hypertension in her mother; Other - Specify in her cousin, father, mother, paternal grandmother, sister, son, and son. Medications: Prior to Admission Medications Prescriptions DISABILITY PLACARD Sig: Disability placard end date 09/28/2022 Multiple Vitamin (multivitamin) capsule Sig: Take 1 capsule by mouth daily. budesonide 0.5 MG/2ML nebulizer suspension Sig: Inhale 2 mL every 12 hours. calcium carbonate-vitamin D 600mg-400units 600-400 MG-UNIT tablet Sig: Take 1 tablet by mouth 2 times daily with meals. fluticasone 50 MCG/ACT Suspension nasal spray Si spray by Nasal route daily. ipratropium-albuterol 0.5-2.5 (3) MG/3ML nebulizer solution Sig: Take 3 mL by nebulization every 4 hours as needed for Wheezing, Respiratory Distress, Breathing Treatment, Cough or Shortness of Breath. tiotropium (Spiriva Respimat) 2.5 MCG/ACT Aero Soln inhaler Sig: Inhale 2 puffs daily. Facility-Administered Medications: None Allergies: Allergies Allergen Reactions Azithromycin Anaphylaxis Other reaction(s): Anaphylaxis, AOF Review of Systems: Review of Systems Constitutional: Negative for chills and fever. HENT: Positive for rhinorrhea. Negative for sore throat and trouble swallowing. Respiratory: Positive for cough and shortness of breath. Negative for choking. Cardiovascular: Negative for chest pain and leg swelling. Gastrointestinal: Positive for nausea. Negative for abdominal pain, blood in stool, constipation, diarrhea and vomiting. Endocrine: Negative for polydipsia. Genitourinary: Negative for dysuria and hematuria. Musculoskeletal: Positive for myalgias. Skin: Negative for rash. Neurological: Negative for dizziness, light-headedness and headaches. Psychiatric/Behavioral: Negative for confusion. Physical Exam: Vitals: 11/21/21 1636 BP: 120/72 Pulse: 112 Resp: Temp: O2 Device: nasal cannula (11/21/21 1600) Flow (L/min): 2 (11/21/21 1600) Gen: Alert, Awake, NAD. Eyes: PERRLA, EOMI, no icterus. ENT: MMM, trachea midline. Resp: Normal respiratory effort. CTAB, no wheezes/rhonchi/rales. Cardio: RRR, normal S1, S2, no M/R/G. GI: S/NT/ND. Normal bowel sounds 4 quadrants. MSK: No joint effusions or erythema. Extr: No LE edema. Skin: No jaundice or rash. Warm, dry. Neuro: inspecting and testing lead hand 3-7, 9-11 grossly intact and equal. Strength grossly equal in muscle groups of the bilateral UEs and LEs. Sensation intact UE and LE. Psych: AOx3, appropriate affect and cognition. Data Review: Recent Labs 11/21/21 1223 SODIUM 139 POTASSIUM 3.4* CHLORIDE 104 CO2 25 BUN 11 CREATSERUM 0.79 WBC 10.31 HGB 15.4* HCT 47.1* PLATELET 225 Additional Labs: BNP 24 Trop 6 Imaging: XR CHEST AP PORTABLE ED Final Result IMPRESSION: 1. No acute cardiopulmonary findings. 2. Emphysema. I personally viewed and interpreted these images and I have reviewed and approved this report. Sinus tachycardia with occasional PVCs Impression/Plan: Chin Whiting is a 61 y.o. female with PMH of COPD (not on O2 at home), tobacco use, chronic back pain, chondrosarcoma, COVID 19 (05/2021) presenting with hypoxia. SOB, likely COPD Exacerbation: Patient recently admitted for COPD exacerbation, s/p prednisone course. Patient unable to be on maintenance inhalers outpatient due to insurance issues. Low suspicion for concurrent infection given afebrile, improved sputum. Important to rule out PE. s/p prednisone 60 mg in ED. - Prednisone 40 mg x 4 days starting tomorrow (11/22) - Defer antibiotics given afebrile, cough with clear sputum - Continue home Spiriva daily - Duonebs scheduled Q4hrs - LE dopplers ordered - D-dimer ordered - Pulmonary hygiene: OOB, ICS Hypokalemia: - Replete PRN Tobacco Use: - Nicotine patch Diet: DIET REGULAR DVT prophylaxis: Lovenox Access: PIV Code status is DNRCC-ARREST, DNI Disposition: Home Staffed with Frannie Ardon, * Signed, Eren Mclean MD PGY1, Internal Medicine Associated attestation - Frannie Hernandez MD - 11/22/2021 10:52 PM EDT Attending Physician Note (GC): I saw and examined this patient on 11/22/2021 and discussed the case with the resident team. I reviewed the pertinent history, labs and imaging and I discussed my findings and the therapeutic plan with the resident. I have independently confirmed essential components of the medical history and the physical examination, and agree with the resident's history, physical examination and medical decisions as outlined in their note with the following additional comments: Plan: The patient is a 61 year old female with a history of COPD and tobacco use who presents with With hypoxemia from PCP office. She was recently admitted with COPD exacerbation from 11/09-11/11. She was treated with prednisone and abx initially, discharged on prednisone. She was on RA at time of discharge and was given ICS, LABA and nebulizers Given insurance, patient was not able to obtain ICS. she says she has been feeling shortness of breath at home since discharge. Denies fevers, chills, increased sputum. In the ED, patient was hypoxemic with improvement on 2L NC. Chest xray without acute abnormalities. EKG without acute ST changes. Labs notable for normal d-dimer, neg troponin, hypokalemia. Admitted for COPD exacerbation due to medication non-adherence (due to cost) s/p IV steroids in ED. patient improved with above treatment plan. No acute events overnight. Patient was weaned down to room air today. She reports that she feels a lot better, denies shortness of breath, reports improvement in sputum production since last admission. Also denies fevers. On exam, lungs are clear to auscultation. will plan to complete 5 days of steroids, continue home Spiriva duonebs q6h PRN discussed medication alternative to pulmicort that is covered by insurance with pharmacy on 11/21/21, start dulera today requiring 1L oxygen with ambulation per RT 6 min walk test given patient improvement and now currently on room air, will discharge today with Spiriva, dulera, nebs PRN, and 5 days total of prednisone. Frannie Ardon MD [employer] [facility] Division of General Internal Medicine [facility] 11-21-2021 History and physical note Internal Medicine Admission History & Physical Patient: Chin Whiting, 1960, [id number] Physician: Eren Mclean MD, PGY1, Pager #[phone], Gen Med A service Date of face to face patient encounter: 11/21/2021 Chief Complaint: Hypoxia History Of Present Illness: Chin Whiting is a 61 y.o. female with a PMH of COPD (not on O2 at home), tobacco use, chronic back pain, chondrosarcoma, COVID 19 (05/2021) presenting with hypoxia. She was admitted from 11/09 to 11/11 for COPD exacerbation. She was started on prednisone and antibiotics, but given low suspicion for pulmonary infection was discharged only on prednisone. She was on RA at time of discharge, and prescribed ICS, BRANDON and nebulizer. Patient reports following her discharge, she was not able to fill her Pulmicort due to insurance issues. She instead had been using albuterol every 4 hours since discharge. She said starting last night, she noted her SpO2 was in the low 80s (lowest observed was 79%). She states she was feeling SOB which progressively worsened throughout the night. She then presented to her PCP for hospital follow up, Where she was found to have SpO2 of 87% and was placed on 2 L NC with improvement to 91% and recommended to come to the ED. She reports a productive cough that has improved since discharge, producing clear thick mucus. Denies hemoptysis, fever, chills, sick contacts, sore throat, weight loss. She reports baseline rhinitis and occasional chest pain when she coughs hard. Regarding her COPD diagnosis, she is unsure when she was diagnosed. She does believe she was diagnosed with PFTs. She states besides the previous admission, she has never received steroids or antibiotics for a COPD exacerbation. She has never been intubated. She is a current smoker, reports she smoked 2 cigarettes yesterday. She has been smoking since age 17, generally believes she was smoking half a pack a day for that period, and then has been smoking 5 cigarettes a day for the last few years. She is not interested in quitting, but has quit for short periods of time. She states she quit before for her second son, who is now , and has no interest in quitting currently. She smokes marijuana daily, but last week has only been using edibles or tinctures. She denies any chemical exposures, but did have farming exposure growing up. 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 Chronic obstructive pulmonary disease (COPD) COVID-19 05/2021 Depression Heel fracture 03/21/2014 right heel Lung nodule s/p open lung biopsy, path benign Migraines Neck pain s/p cervical steroid injection Pneumonia 2002 Whooping cough Past Surgical History: Procedure Laterality Date COMPLETE EXTRACTION OF TEETH 08/26/2018 COLONOSCOPY DIAGNOSTIC N/A 05/03/2018 Laterality: N/A; Surgeon: Steven Gardner MD; Location: [facility] [place] COLONOSCOPY FOR COLORECTAL CANCER SCREENING HIGH RISK INDIVIDUAL N/A 05/02/2018 Laterality: N/A; Surgeon: Rohit Rojas MD; Location: [facility] [place] LUNG BIOPSY 03/24 for lung nodule AMPUTATION FINGER OR HAND 2007 L 5th digit; chondrosarcoma HYSTERECTOMY, TOTAL ABDOMINAL 1996 ARM SURGERY 1995 fracture TONSILLECTOMY 1975 HYSTERECTOMY ~1995 OOPHORECTOMY Bilateral ~1995 Social History: she reports that she has been smoking cigarettes. She has a 9.90 pack-year smoking history. She has never used smokeless tobacco. She reports current drug use. Drug: Marijuana. She reports that she does not drink alcohol. Family History: family history includes Aneurysm in her brother; Bleeding or Clotting Problems in her son; Cancer- Other in her paternal uncle; Diabetes in her mother and paternal grandfather; Heart Failure in her son; Hemachromatosis in her father; Hypertension in her mother; Other - Specify in her cousin, father, mother, paternal grandmother, sister, son, and son. Medications: Prior to Admission Medications Prescriptions DISABILITY PLACARD Sig: Disability placard end date 09/28/2022 Multiple Vitamin (multivitamin) capsule Sig: Take 1 capsule by mouth daily. budesonide 0.5 MG/2ML nebulizer suspension Sig: Inhale 2 mL every 12 hours. calcium carbonate-vitamin D 600mg-400units 600-400 MG-UNIT tablet Sig: Take 1 tablet by mouth 2 times daily with meals. fluticasone 50 MCG/ACT Suspension nasal spray Si spray by Nasal route daily. ipratropium-albuterol 0.5-2.5 (3) MG/3ML nebulizer solution Sig: Take 3 mL by nebulization every 4 hours as needed for Wheezing, Respiratory Distress, Breathing Treatment, Cough or Shortness of Breath. tiotropium (Spiriva Respimat) 2.5 MCG/ACT Aero Soln inhaler Sig: Inhale 2 puffs daily. Facility-Administered Medications: None Allergies: Allergies Allergen Reactions Azithromycin Anaphylaxis Other reaction(s): Anaphylaxis, AOF Review of Systems: Review of Systems Constitutional: Negative for chills and fever. HENT: Positive for rhinorrhea. Negative for sore throat and trouble swallowing. Respiratory: Positive for cough and shortness of breath. Negative for choking. Cardiovascular: Negative for chest pain and leg swelling. Gastrointestinal: Positive for nausea. Negative for abdominal pain, blood in stool, constipation, diarrhea and vomiting. Endocrine: Negative for polydipsia. Genitourinary: Negative for dysuria and hematuria. Musculoskeletal: Positive for myalgias. Skin: Negative for rash. Neurological: Negative for dizziness, light-headedness and headaches. Psychiatric/Behavioral: Negative for confusion. Physical Exam: Vitals: 11/21/21 1636 BP: 120/72 Pulse: 112 Resp: Temp: O2 Device: nasal cannula (11/21/21 1600) Flow (L/min): 2 (11/21/21 1600) Gen: Alert, Awake, NAD. Eyes: PERRLA, EOMI, no icterus. ENT: MMM, trachea midline. Resp: Normal respiratory effort. CTAB, no wheezes/rhonchi/rales. Cardio: RRR, normal S1, S2, no M/R/G. GI: S/NT/ND. Normal bowel sounds 4 quadrants. MSK: No joint effusions or erythema. Extr: No LE edema. Skin: No jaundice or rash. Warm, dry. Neuro: inspecting and testing lead hand 3-7, 9-11 grossly intact and equal. Strength grossly equal in muscle groups of the bilateral UEs and LEs. Sensation intact UE and LE. Psych: AOx3, appropriate affect and cognition. Data Review: Recent Labs 11/21/21 1223 SODIUM 139 POTASSIUM 3.4* CHLORIDE 104 CO2 25 BUN 11 CREATSERUM 0.79 WBC 10.31 HGB 15.4* HCT 47.1* PLATELET 225 Additional Labs: BNP 24 Trop 6 Imaging: XR CHEST AP PORTABLE ED Final Result IMPRESSION: 1. No acute cardiopulmonary findings. 2. Emphysema. I personally viewed and interpreted these images and I have reviewed and approved this report. Sinus tachycardia with occasional PVCs Impression/Plan: Chin Whiting is a 61 y.o. female with PMH of COPD (not on O2 at home), tobacco use, chronic back pain, chondrosarcoma, COVID 19 (05/2021) presenting with hypoxia. SOB, likely COPD Exacerbation: Patient recently admitted for COPD exacerbation, s/p prednisone course. Patient unable to be on maintenance inhalers outpatient due to insurance issues. Low suspicion for concurrent infection given afebrile, improved sputum. Important to rule out PE. s/p prednisone 60 mg in ED. - Prednisone 40 mg x 4 days starting tomorrow (11/22) - Defer antibiotics given afebrile, cough with clear sputum - Continue home Spiriva daily - Duonebs scheduled Q4hrs - LE dopplers ordered - D-dimer ordered - Pulmonary hygiene: OOB, ICS Hypokalemia: - Replete PRN Tobacco Use: - Nicotine patch Diet: DIET REGULAR DVT prophylaxis: Lovenox Access: PIV Code status is DNRCC-ARREST, DNI Disposition: Home Staffed with Frannie Ardon, * Signed, Eren Mclean MD PGY1, Internal Medicine Associated attestation - Frannie Hernandez MD - 11/22/2021 10:52 PM EDT Attending Physician Note (GC): I saw and examined this patient on 11/22/2021 and discussed the case with the resident team. I reviewed the pertinent history, labs and imaging and I discussed my findings and the therapeutic plan with the resident. I have independently confirmed essential components of the medical history and the physical examination, and agree with the resident's history, physical examination and medical decisions as outlined in their note with the following additional comments: Plan: The patient is a 61 year old female with a history of COPD and tobacco use who presents with With hypoxemia from PCP office. She was recently admitted with COPD exacerbation from 11/09-11/11. She was treated with prednisone and abx initially, discharged on prednisone. She was on RA at time of discharge and was given ICS, LABA and nebulizers Given insurance, patient was not able to obtain ICS. she says she has been feeling shortness of breath at home since discharge. Denies fevers, chills, increased sputum. In the ED, patient was hypoxemic with improvement on 2L NC. Chest xray without acute abnormalities. EKG without acute ST changes. Labs notable for normal d-dimer, neg troponin, hypokalemia. Admitted for COPD exacerbation due to medication non-adherence (due to cost) s/p IV steroids in ED. patient improved with above treatment plan. No acute events overnight. Patient was weaned down to room air today. She reports that she feels a lot better, denies shortness of breath, reports improvement in sputum production since last admission. Also denies fevers. On exam, lungs are clear to auscultation. will plan to complete 5 days of steroids, continue home Spiriva duonebs q6h PRN discussed medication alternative to pulmicort that is covered by insurance with pharmacy on 11/21/21, start dulera today requiring 1L oxygen with ambulation per RT 6 min walk test given patient improvement and now currently on room air, will discharge today with Spiriva, dulera, nebs PRN, and 5 days total of prednisone. Frannie Ardon MD [employer] Division of General Internal Medicine [facility] documented in this encounter [facility] 11-21-2021 Note Acute Coronary Syndr ome (ACS): Initial Evaluation and Management: [email or web address] 11-21-2021 Physician Emergency department Note ED Attending Chief complaint: Chief Complaint Patient presents with Hypoxia Sent from [facility], oxygen 88% on room air, recently admitted here [facility] , this is why I have been admitted, does not wear oxygen at home. Currently on 2 liters 94% Chin Hector Whiting has a past medical history of Adenoid hypertrophy (05/2010), Back pain, Cardiac angina, Chondrosarcoma nos (1999), Chronic obstructive pulmonary disease (COPD), COVID-19 (05/2021), Depression, Heel fracture (03/21/2014), Lung nodule, Migraines, Neck pain, Pneumonia (2001), and Whooping cough. She has no past medical history of Exposure to hazardous chemical or History of radiation exposure. Presents from [facility] from follow up appointment. dcd from about one week ago for copd exacerbation. Meds changed on dc due to insurance reasons. On albuterol aerosol q 4 hours. Finished steroids. Clear sputum. BP 142/66 Pulse 100 Temp 97.5 F (36.4 C) (Oral) Resp 20 SpO2 94% Smoking Status Current Every Day Smoker Resting comfortably. No distress. Lungs - slight basilar wheezing. Cardio wnl Ext - no edema EKG Interpretation Interpreted by Tex Palma MD 11/21/2021 12:23 PM Rate: tachy Rhythm: sinus tach [place]: normal Conduction: normal ST Segments: no acute change T Waves: no acute change Clinical Impression: sinus tach, occasional pvc Results for orders placed or performed during the hospital encounter of 11/21/21 CHEM 7 (LYTES,BUN,CREA,GLUC) Result Value Ref Range Sodium 139 135 - 145 mmol/L Potassium 3.4 (L) 3.5 - 5.0 mmol/L Chloride 104 98 - 108 mmol/L CO2 25 21 - 31 mmol/L Glucose 92 70 - 99 mg/dL BUN 11 7 - 25 mg/dL Creatinine 0.79 0.50 - 1.20 mg/dL Bun/Crea Ratio 14 Osmolality (Calculated) 289 278 - 305 mOsm/kg Anion Gap 13 7 - 17 mmol/L eGFR, CKD-EPI, Female 85 >=60 mL/min/1.73m2 B-TYPE NATRIURETIC PEPTIDE (BRAIN) Result Value Ref Range BNP 24 0 - 100 pg/mL HIGH SENSITIVITY TROPONIN I - SINGLE ORDER Result Value Ref Range hs-Troponin I 6 <34 ng/L CBC AND ELECTRONIC DIFF Result Value Ref Range WBC Count 10.31 3.99 - 11.19 K/uL RBC Count 4.85 3.91 - 5.04 M/uL Hemoglobin 15.4 (H) 11.4 - 15.2 g/dL Hematocrit 47.1 (H) 34.9 - 44.3 % Mean Cell Volume 97.1 79.6 - 97.7 fL Mean Cell Hgb 31.8 25.9 - 33.9 pg Mean Cell Hgb Conc 32.7 31.4 - 35.9 g/dL RBC Distribution 12.7 10.8 - 14.9 % Platelet Count 225 150 - 393 K/uL Mean Platelet Volume 10.0 8.5 - 12.2 fL DIFF STATUS Electronic Differential Segs + Bands Auto 63.4 % Immature Grans % 0.4 % Lymphocyte % Auto 21.0 % Monocyte % Auto 6.6 % Eosinophil % Auto 8.1 % Basophil % Auto 0.5 % Nucleated RBC 0.0 <=0.2 /100 WBC Segs + Bands,Absolute Auto 6.55 1.64 - 7.28 K/uL Immature Grans Absolute 0.04 <=0.09 K/uL Abs Lymph Auto 2.16 1.16 - 3.51 K/uL Abs Sunflower Auto 0.68 0.22 - 0.87 K/uL Abs Eos Auto 0.83 (H) 0.00 - 0.42 K/uL Abs Baso Auto 0.05 0.00 - 0.15 K/uL XR CHEST AP PORTABLE ED Final Result IMPRESSION: 1. No acute cardiopulmonary findings. 2. Emphysema. I personally viewed and interpreted these images and I have reviewed and approved this report. When taken off O2,, O2 sat decreased to 80s without activity. Plan: Will admit for further evaluation. On 11/21/2021 I saw and examined the patient with the acid strength inspector . I provided a substantive portion of the care for this patient. I personally performed all aspects of the medical decision making for this encounter. I have reviewed and and verified this so that it accurately reflects our care. Tex Palma MD 11/21/21 2882 [facility] Work Phone: 11-21-2021 Emergency department Note ED Attending Chief complaint: Chief Complaint Patient presents with Hypoxia Sent from [facility], oxygen 88% on room air, recently admitted here [facility] , this is why I have been admitted, does not wear oxygen at home. Currently on 2 liters 94% Chin Whiting has a past medical history of Adenoid hypertrophy (05/2010), Back pain, Cardiac angina, Chondrosarcoma nos (1999), Chronic obstructive pulmonary disease (COPD), COVID-19 (05/2021), Depression, Heel fracture (03/21/2014), Lung nodule, Migraines, Neck pain, Pneumonia (2001), and Whooping cough. She has no past medical history of Exposure to hazardous chemical or History of radiation exposure. Presents from [facility] from follow up appointment. dcd from about one week ago for copd exacerbation. Meds changed on dc due to insurance reasons. On albuterol aerosol q 4 hours. Finished steroids. Clear sputum. BP 142/66 Pulse 100 Temp 97.5 F (36.4 C) (Oral) Resp 20 SpO2 94% Smoking Status Current Every Day Smoker Resting comfortably. No distress. Lungs - slight basilar wheezing. Cardio wnl Ext - no edema EKG Interpretation Interpreted by Tex Palma MD 11/21/2021 12:23 PM Rate: tachy Rhythm: sinus tach [place]: normal Conduction: normal ST Segments: no acute change T Waves: no acute change Clinical Impression: sinus tach, occasional pvc Results for orders placed or performed during the hospital encounter of 11/21/21 CHEM 7 (LYTES,BUN,CREA,GLUC) Result Value Ref Range Sodium 139 135 - 145 mmol/L Potassium 3.4 (L) 3.5 - 5.0 mmol/L Chloride 104 98 - 108 mmol/L CO2 25 21 - 31 mmol/L Glucose 92 70 - 99 mg/dL BUN 11 7 - 25 mg/dL Creatinine 0.79 0.50 - 1.20 mg/dL Bun/Crea Ratio 14 Osmolality (Calculated) 289 278 - 305 mOsm/kg Anion Gap 13 7 - 17 mmol/L eGFR, CKD-EPI, Female 85 >=60 mL/min/1.73m2 B-TYPE NATRIURETIC PEPTIDE (BRAIN) Result Value Ref Range BNP 24 0 - 100 pg/mL HIGH SENSITIVITY TROPONIN I - SINGLE ORDER Result Value Ref Range hs-Troponin I 6 <34 ng/L CBC AND ELECTRONIC DIFF Result Value Ref Range WBC Count 10.31 3.99 - 11.19 K/uL RBC Count 4.85 3.91 - 5.04 M/uL Hemoglobin 15.4 (H) 11.4 - 15.2 g/dL Hematocrit 47.1 (H) 34.9 - 44.3 % Mean Cell Volume 97.1 79.6 - 97.7 fL Mean Cell Hgb 31.8 25.9 - 33.9 pg Mean Cell Hgb Conc 32.7 31.4 - 35.9 g/dL RBC Distribution 12.7 10.8 - 14.9 % Platelet Count 225 150 - 393 K/uL Mean Platelet Volume 10.0 8.5 - 12.2 fL DIFF STATUS Electronic Differential Segs + Bands Auto 63.4 % Immature Grans % 0.4 % Lymphocyte % Auto 21.0 % Monocyte % Auto 6.6 % Eosinophil % Auto 8.1 % Basophil % Auto 0.5 % Nucleated RBC 0.0 <=0.2 /100 WBC Segs + Bands,Absolute Auto 6.55 1.64 - 7.28 K/uL Immature Grans Absolute 0.04 <=0.09 K/uL Abs Lymph Auto 2.16 1.16 - 3.51 K/uL Abs Sunflower Auto 0.68 0.22 - 0.87 K/uL Abs Eos Auto 0.83 (H) 0.00 - 0.42 K/uL Abs Baso Auto 0.05 0.00 - 0.15 K/uL XR CHEST AP PORTABLE ED Final Result IMPRESSION: 1. No acute cardiopulmonary findings. 2. Emphysema. I personally viewed and interpreted these images and I have reviewed and approved this report. When taken off O2,, O2 sat decreased to 80s without activity. Plan: Will admit for further evaluation. On 11/21/2021 I saw and examined the patient with the acid strength inspector . I provided a substantive portion of the care for this patient. I personally performed all aspects of the medical decision making for this encounter. I have reviewed and and verified this so that it accurately reflects our care. Tex Palma MD 11/21/21 3059 dEPARTMENT of Emergency Medicine CHIEF COMPLAINT Hypoxia (Sent from [facility], oxygen 88% on room air, recently admitted here [facility] , this is why I have been admitted, does not wear oxygen at home. Currently on 2 liters 94%) HPI Chin Whiting is a 61 y.o. female who presents from [facility]. Hx COPD. Recent hospital admission for same. Not currently on steroids/antibiotics. Presented today with persistent SOB not improved with home nebulizers. Does not wear home O2. Had mild hypoxia in primary care clinic today so was sent to the ED for further evaluation. REVIEW OF SYSTEMS Review of Systems Constitutional: Negative for chills and fever. HENT: Negative for sore throat. Respiratory: Positive for chest tightness, shortness of breath and wheezing. Cardiovascular: Negative for chest pain and leg swelling. Gastrointestinal: Negative for nausea and vomiting. Genitourinary: Negative for dysuria. Musculoskeletal: Negative for myalgias. Skin: Negative for color change and rash. Neurological: Negative for headaches. Psychiatric/Behavioral: Negative for behavioral problems and confusion. PAST MEDICAL HISTORY 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 Chronic obstructive pulmonary disease (COPD) COVID-19 05/2021 Depression Heel fracture 03/21/2014 right heel Lung nodule s/p open lung biopsy, path benign Migraines Neck pain s/p cervical steroid injection Pneumonia 2002 Whooping cough SURGICAL HISTORY Past Surgical History: Procedure Laterality Date COMPLETE EXTRACTION OF TEETH 08/26/2018 COLONOSCOPY DIAGNOSTIC N/A 05/03/2018 Laterality: N/A; Surgeon: Steven Gardner MD; Location: [facility] [place] COLONOSCOPY FOR COLORECTAL CANCER SCREENING HIGH RISK INDIVIDUAL N/A 05/02/2018 Laterality: N/A; Surgeon: Rohit Rojas MD; Location: [facility] [place] LUNG BIOPSY 03/24 for lung nodule AMPUTATION FINGER OR HAND 2007 L 5th digit; chondrosarcoma HYSTERECTOMY, TOTAL ABDOMINAL 1996 ARM SURGERY 1995 fracture TONSILLECTOMY 1975 HYSTERECTOMY ~1995 OOPHORECTOMY Bilateral ~1995 CURRENT MEDICATIONS No current facility-administered medications for this encounter. Current Outpatient Medications Medication Sig Dispense Refill budesonide 0.5 MG/2ML nebulizer suspension Inhale 2 mL every 12 hours. 60 Each 0 ipratropium-albuterol 0.5-2.5 (3) MG/3ML nebulizer solution Take 3 mL by nebulization every 4 hours as needed for Wheezing, Respiratory Distress, Breathing Treatment, Cough or Shortness of Breath. 3 mL 0 tiotropium (Spiriva Respimat) 2.5 MCG/ACT Aero Soln inhaler Inhale 2 puffs daily. 4 g 0 calcium carbonate-vitamin D 600mg-400units 600-400 MG-UNIT tablet Take 1 tablet by mouth 2 times daily with meals. 60 tablet 11 DISABILITY PLACARD Disability placard end date 09/28/2022 1 Each 0 fluticasone 50 MCG/ACT Suspension nasal spray 1 spray by Nasal route daily. 9.9 mL 0 ALLERGIES Allergies Allergen Reactions Azithromycin Anaphylaxis Other reaction(s): Anaphylaxis, AOF FAMILY HISTORY Family History Problem Relation Age of Onset Diabetes Mother Hypertension Mother Other - Specify Mother alzheimers Other - Specify Son son of heart defect Heart Failure Son Hemachromatosis Father Other - Specify Father disorder - "too much iron in blood" Bleeding or Clotting Problems Son Platelet storage pool deficiency Other - Specify Son severe allergies Other - Specify Sister Chronic lung disease Aneurysm Brother Other - Specify Paternal Grandmother TB Other - Specify Cousin multiple myeloma Cancer- Other Paternal Uncle lymphoma Diabetes Paternal Grandfather Colorectal Cancer Neg Hx Breast Cancer Neg Hx Ovarian Cancer Neg Hx Uterine Cancer Neg Hx SOCIAL HISTORY 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 Tobacco Use Smoking status: Current Every Day Smoker Packs/day: 0.33 Years: 30.00 Pack years: 9.90 Types: Cigarettes Smokeless tobacco: Never Used Tobacco comment: did smoke yesterday but trying to quit Vaping Use Vaping Use: Never used Substance and Sexual Activity Alcohol use: No Comment: rare Drug use: Yes Types: Marijuana Comment: every day Sexual activity: Not Currently Partners: Male control/protection: Hysteroscopic Tubal Occlusion Other Topics Concern Not on file Social History Narrative Not on file Social Determinants of Health Financial Resource Strain: Low Risk Difficulty of Paying Living Expenses: Not hard at all Food Insecurity: No Food Insecurity Worried About Running Out of Food in the Last Year: Never true Ran Out of Food in the Last Year: Never true Transportation Needs: No Transportation Needs Lack of Transportation (Medical): No Lack of Transportation (Non-Medical): No Physical Activity: Inactive Days of Exercise per Week: 0 days Minutes of Exercise per Session: 0 min Stress: Stress Concern Present Feeling of Stress : To some extent Social Connections: Socially Isolated Frequency of Communication with Friends and Family: More than three times a week Frequency of Social Gatherings with Friends and Family: More than three times a week Attends Hindu Services: Never Active Member of Clubs or Organizations: No Attends Club or Organization Meetings: Never Marital Status: Intimate Partner Violence: Not At Risk Fear of Current or Ex-Partner: No Emotionally Abused: No Physically Abused: No Sexually Abused: No Housing Stability: Unknown Unable to Pay for Housing in the Last Year: No Number of Places Lived in the Last Year: Not on file Unstable Housing in the Last Year: No PHYSICAL EXAM BP 142/66 Pulse 100 Temp 97.5 F (36.4 C) (Oral) Resp 20 SpO2 94% Smoking Status Current Every Day Smoker Physical Exam Vitals and nursing note reviewed. Constitutional: General: She is not in acute distress. Comments: Thin HENT: Head: Normocephalic and atraumatic. Mouth/Throat: Mouth: Mucous membranes are moist. Eyes: General: No scleral icterus. Cardiovascular: Rate and Rhythm: Normal rate. Pulmonary: Effort: Pulmonary effort is normal. Breath sounds: Normal breath sounds. Musculoskeletal: Right lower leg: No edema. Left lower leg: No edema. Skin: General: Skin is warm and dry. Neurological: General: No focal deficit present. Mental Status: She is alert and oriented to person, place, and time. Psychiatric: Mood and Affect: Mood normal. Behavior: Behavior normal. XR CHEST AP PORTABLE ED Final Result IMPRESSION: 1. No acute cardiopulmonary findings. 2. Emphysema. I personally viewed and interpreted these images and I have reviewed and approved this report. Results for orders placed or performed during the hospital encounter of 11/21/21 CHEM 7 (LYTES,BUN,CREA,GLUC) Result Value Ref Range Sodium 139 135 - 145 mmol/L Potassium 3.4 (L) 3.5 - 5.0 mmol/L Chloride 104 98 - 108 mmol/L CO2 25 21 - 31 mmol/L Glucose 92 70 - 99 mg/dL BUN 11 7 - 25 mg/dL Creatinine 0.79 0.50 - 1.20 mg/dL Bun/Crea Ratio 14 Osmolality (Calculated) 289 278 - 305 mOsm/kg Anion Gap 13 7 - 17 mmol/L eGFR, CKD-EPI, Female 85 >=60 mL/min/1.73m2 B-TYPE NATRIURETIC PEPTIDE (BRAIN) Result Value Ref Range BNP 24 0 - 100 pg/mL HIGH SENSITIVITY TROPONIN I - SINGLE ORDER Result Value Ref Range hs-Troponin I 6 <34 ng/L CBC AND ELECTRONIC DIFF Result Value Ref Range WBC Count 10.31 3.99 - 11.19 K/uL RBC Count 4.85 3.91 - 5.04 M/uL Hemoglobin 15.4 (H) 11.4 - 15.2 g/dL Hematocrit 47.1 (H) 34.9 - 44.3 % Mean Cell Volume 97.1 79.6 - 97.7 fL Mean Cell Hgb 31.8 25.9 - 33.9 pg Mean Cell Hgb Conc 32.7 31.4 - 35.9 g/dL RBC Distribution 12.7 10.8 - 14.9 % Platelet Count 225 150 - 393 K/uL Mean Platelet Volume 10.0 8.5 - 12.2 fL DIFF STATUS Electronic Differential Segs + Bands Auto 63.4 % Immature Grans % 0.4 % Lymphocyte % Auto 21.0 % Monocyte % Auto 6.6 % Eosinophil % Auto 8.1 % Basophil % Auto 0.5 % Nucleated RBC 0.0 <=0.2 /100 WBC Segs + Bands,Absolute Auto 6.55 1.64 - 7.28 K/uL Immature Grans Absolute 0.04 <=0.09 K/uL Abs Lymph Auto 2.16 1.16 - 3.51 K/uL Abs [place] Auto 0.68 0.22 - 0.87 K/uL Abs Eos Auto 0.83 (H) 0.00 - 0.42 K/uL Abs Baso Auto 0.05 0.00 - 0.15 K/uL ED COURSE & MEDICAL DECISION MAKING Pt is nontoxic in appearance, afebrile, in no apparent acute distress. Labs and XR reassuring. Medications predniSONE (DELTASONE) tablet 60 mg (60 mg Oral Given 11/21/21 1226) O2 sat on room air 87% at rest. Improved with supplemental O2. Given new O2 requirement recommend obs admission for further management. Pt in agreement. Impression: COPD, hypoxia Plan: ADMIT This was a shared visit. Dr. Palma was present for han aspects of care. STEVEN Topete 11/21/21 1444 Pt on 2 L NC; reports no home O2; reports was recently admitting for 2-3 days for COPD. Reports q4 albuterol at home because q12 medication wasn't approved. documented in this encounter [facility] 11-21-2021 Physician Emergency department Note dEPARTMENT of Emergency Medicine CHIEF COMPLAINT Hypoxia (Sent from [facility], oxygen 88% on room air, recently admitted here [facility] , this is why I have been admitted, does not wear oxygen at home. Currently on 2 liters 94%) HPI Chin Whiting is a 61 y.o. female who presents from [facility]. Hx COPD. Recent hospital admission for same. Not currently on steroids/antibiotics. Presented today with persistent SOB not improved with home nebulizers. Does not wear home O2. Had mild hypoxia in primary care clinic today so was sent to the ED for further evaluation. REVIEW OF SYSTEMS Review of Systems Constitutional: Negative for chills and fever. HENT: Negative for sore throat. Respiratory: Positive for chest tightness, shortness of breath and wheezing. Cardiovascular: Negative for chest pain and leg swelling. Gastrointestinal: Negative for nausea and vomiting. Genitourinary: Negative for dysuria. Musculoskeletal: Negative for myalgias. Skin: Negative for color change and rash. Neurological: Negative for headaches. Psychiatric/Behavioral: Negative for behavioral problems and confusion. 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 Chronic obstructive pulmonary disease (COPD) COVID-19 05/2021 Depression Heel fracture 03/21/2014 right heel Lung nodule s/p open lung biopsy, path benign Migraines Neck pain s/p cervical steroid injection Pneumonia 2001 Whooping cough SURGICAL HISTORY Past Surgical History: Procedure Laterality Date COMPLETE EXTRACTION OF TEETH 08/26/2018 COLONOSCOPY DIAGNOSTIC N/A 05/03/2018 Laterality: N/A; Surgeon: Steven Gardner MD; Location: [facility] [place] COLONOSCOPY FOR COLORECTAL CANCER SCREENING HIGH RISK INDIVIDUAL N/A 05/02/2018 Laterality: N/A; Surgeon: Rohit Rojas MD; Location: [facility] [place] LUNG BIOPSY 03/24 for lung nodule AMPUTATION FINGER OR HAND 2007 L 5th digit; chondrosarcoma HYSTERECTOMY, TOTAL ABDOMINAL 1996 ARM SURGERY 1995 fracture TONSILLECTOMY 1975 HYSTERECTOMY ~1995 OOPHORECTOMY Bilateral ~1995 CURRENT MEDICATIONS No current facility-administered medications for this encounter. Current Outpatient Medications Medication Sig Dispense Refill budesonide 0.5 MG/2ML nebulizer suspension Inhale 2 mL every 12 hours. 60 Each 0 ipratropium-albuterol 0.5-2.5 (3) MG/3ML nebulizer solution Take 3 mL by nebulization every 4 hours as needed for Wheezing, Respiratory Distress, Breathing Treatment, Cough or Shortness of Breath. 3 mL 0 tiotropium (Spiriva Respimat) 2.5 MCG/ACT Aero Soln inhaler Inhale 2 puffs daily. 4 g 0 calcium carbonate-vitamin D 600mg-400units 600-400 MG-UNIT tablet Take 1 tablet by mouth 2 times daily with meals. 60 tablet 11 DISABILITY PLACARD Disability placard end date 09/28/2022 1 Each 0 fluticasone 50 MCG/ACT Suspension nasal spray 1 spray by Nasal route daily. 9.9 mL 0 ALLERGIES Allergies Allergen Reactions Azithromycin Anaphylaxis Other reaction(s): Anaphylaxis, AOF FAMILY HISTORY Family History Problem Relation Age of Onset Diabetes Mother Hypertension Mother Other - Specify Mother alzheimers Other - Specify Son son of heart defect Heart Failure Son Hemachromatosis Father Other - Specify Father disorder - "too much iron in blood" Bleeding or Clotting Problems Son Platelet storage pool deficiency Other - Specify Son severe allergies Other - Specify Sister Chronic lung disease Aneurysm Brother Other - Specify Paternal Grandmother TB Other - Specify Cousin multiple myeloma Cancer- Other Paternal Uncle lymphoma Diabetes Paternal Grandfather Colorectal Cancer Neg Hx Breast Cancer Neg Hx Ovarian Cancer Neg Hx Uterine Cancer Neg Hx SOCIAL HISTORY 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 Tobacco Use Smoking status: Current Every Day Smoker Packs/day: 0.33 Years: 30.00 Pack years: 9.90 Types: Cigarettes Smokeless tobacco: Never Used Tobacco comment: did smoke yesterday but trying to quit Vaping Use Vaping Use: Never used Substance and Sexual Activity Alcohol use: No Comment: rare Drug use: Yes Types: Marijuana Comment: every day Sexual activity: Not Currently Partners: Male control/protection: Hysteroscopic Tubal Occlusion Other Topics Concern Not on file Social History Narrative Not on file Social Determinants of Health Financial Resource Strain: Low Risk Difficulty of Paying Living Expenses: Not hard at all Food Insecurity: No Food Insecurity Worried About Running Out of Food in the Last Year: Never true Ran Out of Food in the Last Year: Never true Transportation Needs: No Transportation Needs Lack of Transportation (Medical): No Lack of Transportation (Non-Medical): No Physical Activity: Inactive Days of Exercise per Week: 0 days Minutes of Exercise per Session: 0 min Stress: Stress Concern Present Feeling of Stress : To some extent Social Connections: Socially Isolated Frequency of Communication with Friends and Family: More than three times a week Frequency of Social Gatherings with Friends and Family: More than three times a week Attends Hindu Services: Never Active Member of Clubs or Organizations: No Attends Club or Organization Meetings: Never Marital Status: Intimate Partner Violence: Not At Risk Fear of Current or Ex-Partner: No Emotionally Abused: No Physically Abused: No Sexually Abused: No Housing Stability: Unknown Unable to Pay for Housing in the Last Year: No Number of Places Lived in the Last Year: Not on file Unstable Housing in the Last Year: No PHYSICAL EXAM BP 142/66 Pulse 100 Temp 97.5 F (36.4 C) (Oral) Resp 20 SpO2 94% Smoking Status Current Every Day Smoker Physical Exam Vitals and nursing note reviewed. Constitutional: General: She is not in acute distress. Comments: Thin HENT: Head: Normocephalic and atraumatic. Mouth/Throat: Mouth: Mucous membranes are moist. Eyes: General: No scleral icterus. Cardiovascular: Rate and Rhythm: Normal rate. Pulmonary: Effort: Pulmonary effort is normal. Breath sounds: Normal breath sounds. Musculoskeletal: Right lower leg: No edema. Left lower leg: No edema. Skin: General: Skin is warm and dry. Neurological: General: No focal deficit present. Mental Status: She is alert and oriented to person, place, and time. Psychiatric: Mood and Affect: Mood normal. Behavior: Behavior normal. XR CHEST AP PORTABLE ED Final Result IMPRESSION: 1. No acute cardiopulmonary findings. 2. Emphysema. I personally viewed and interpreted these images and I have reviewed and approved this report. Results for orders placed or performed during the hospital encounter of 11/21/21 CHEM 7 (LYTES,BUN,CREA,GLUC) Result Value Ref Range Sodium 139 135 - 145 mmol/L Potassium 3.4 (L) 3.5 - 5.0 mmol/L Chloride 104 98 - 108 mmol/L CO2 25 21 - 31 mmol/L Glucose 92 70 - 99 mg/dL BUN 11 7 - 25 mg/dL Creatinine 0.79 0.50 - 1.20 mg/dL Bun/Crea Ratio 14 Osmolality (Calculated) 289 278 - 305 mOsm/kg Anion Gap 13 7 - 17 mmol/L eGFR, CKD-EPI, Female 85 >=60 mL/min/1.73m2 B-TYPE NATRIURETIC PEPTIDE (BRAIN) Result Value Ref Range BNP 24 0 - 100 pg/mL HIGH SENSITIVITY TROPONIN I - SINGLE ORDER Result Value Ref Range hs-Troponin I 6 <34 ng/L CBC AND ELECTRONIC DIFF Result Value Ref Range WBC Count 10.31 3.99 - 11.19 K/uL RBC Count 4.85 3.91 - 5.04 M/uL Hemoglobin 15.4 (H) 11.4 - 15.2 g/dL Hematocrit 47.1 (H) 34.9 - 44.3 % Mean Cell Volume 97.1 79.6 - 97.7 fL Mean Cell Hgb 31.8 25.9 - 33.9 pg Mean Cell Hgb Conc 32.7 31.4 - 35.9 g/dL RBC Distribution 12.7 10.8 - 14.9 % Platelet Count 225 150 - 393 K/uL Mean Platelet Volume 10.0 8.5 - 12.2 fL DIFF STATUS Electronic Differential Segs + Bands Auto 63.4 % Immature Grans % 0.4 % Lymphocyte % Auto 21.0 % Monocyte % Auto 6.6 % Eosinophil % Auto 8.1 % Basophil % Auto 0.5 % Nucleated RBC 0.0 <=0.2 /100 WBC Segs + Bands,Absolute Auto 6.55 1.64 - 7.28 K/uL Immature Grans Absolute 0.04 <=0.09 K/uL Abs Lymph Auto 2.16 1.16 - 3.51 K/uL Abs Sunflower Auto 0.68 0.22 - 0.87 K/uL Abs Eos Auto 0.83 (H) 0.00 - 0.42 K/uL Abs Baso Auto 0.05 0.00 - 0.15 K/uL ED COURSE & MEDICAL DECISION MAKING Pt is nontoxic in appearance, afebrile, in no apparent acute distress. Labs and XR reassuring. Medications predniSONE (DELTASONE) tablet 60 mg (60 mg Oral Given 11/21/21 1226) O2 sat on room air 87% at rest. Improved with supplemental O2. Given new O2 requirement recommend obs admission for further management. Pt in agreement. Impression: COPD, hypoxia Plan: ADMIT This was a shared visit. Dr. Palma was present for han aspects of care. STEVEN Topete 11/21/[address] [facility] Work Phone: 11-21-2021 Emergency department Note Pt on 2 L NC; reports no home O2; reports was recently admitting for 2-3 days for COPD. Reports q4 albuterol at home because q12 medication wasn't approved. [facility] 11-21-2021 History of Present illness Narrative Chin presents for scheduled appointment. HPI: Chin Whiting is a 61 y.o. female seen today for: Hospital follow up- Patient recently hospitalized 11/09-11/11 due to COPD exacerbation. She was discharged on a prednisone burst and weaned to RA on discharge. She was provided with ICS, BRANDON, and nebulizer at discharge. Antibiotics were initiated during inpatient stay but discontinued due to low suspicion for infection. She has been using ipratropium nebulizer every 3.5-4 hours. States she has been using her Spiriva BID in addition to her Felons, StemCell Maxum, and vitamin D. States she has not been using the Budesonide nebulizer solution because she states she never received it. [place] like it helped with her breathing while hospitalized. States she struggled over night with breathing and trying to keep her oxygen levels up. Her oxygen at home has been fluctuating between 85-97%. States she has been doing breathing treatments every 4 hours due to not feeling like she can breath. Is feeling jittery and "wired for sound" from the albuterol. States she is coughing up clear mucus with coughing. States she has had "maybe 10 cigarettes since leaving the hospital." States she feels like she needs to be hospitalized again to help with getting her breathing back under control. I have reviewed the patient's medical and social history, in detail, and updated the computerized patient record. Health Maintenance Topic Date Due ZOSTER (SHINGLES) VACCINE (1 of 2) Never done COVID-19 VACCINE (3 - Booster for Moderna series) 04/25/2021 COLONOSCOPY 05/03/2021 MAMMOGRAM SCREENING DISCUSSION 09/22/2022 TETANUS 04/05/2025 PNEUMOCOCCAL VACCINE SERIES (3 - PPSV23 or PCV20) 2026 LIPID SCREENING 09/22/2026 INFLUENZA VACCINE Completed TDAP (ADULT) Completed HEPATITIS C VIRUS SCREENING Completed HIV SCREENING DISCUSSION Addressed CERVICAL CANCER SCREENING DISCUSSION Discontinued REVIEW OF SYSTEMS: Unless noted in HPI, all other systems have been reviewed and are negative for complaint. PHYSICAL EXAMINATION: Blood pressure 148/81, pulse 66, temperature 98.2 F (36.8 C), temperature source Temporal, resp. rate 20, height 1.626 m (5' 4.02"), weight 44.1 kg (97 lb 3.2 oz), SpO2 (!) 87 %, not currently . Body mass index is 16.67 kg/m . Physical Exam Vitals reviewed. Constitutional: Appearance: Normal appearance. She is well-developed and well-groomed. Eyes: General: Lids are normal. Extraocular Movements: Extraocular movements intact. Conjunctiva/sclera: Conjunctivae normal. Cardiovascular: Rate and Rhythm: Regular rhythm. Tachycardia present. Pulses: Normal pulses. Radial pulses are 2+ on the right side and 2+ on the left side. Heart sounds: Normal heart sounds, S1 normal and S2 normal. Pulmonary: Effort: Tachypnea and accessory muscle usage present. Breath sounds: Normal air entry. Examination of the right-upper field reveals wheezing. Examination of the right-middle field reveals wheezing. Wheezing (Inspiratory) present. Musculoskeletal: Right lower leg: No edema. Left lower leg: No edema. Neurological: General: No focal deficit present. Mental Status: She is alert and oriented to person, place, and time. Psychiatric: Attention and Perception: Attention normal. Mood and Affect: Mood is anxious. Speech: Speech normal. Behavior: Behavior normal. Behavior is cooperative. Thought Content: Thought content normal. ASSESSMENT AND PLAN: Diagnoses and all orders for this visit: COPD with acute exacerbation - AMB REFERRAL TO PULMONARY - [place] OXYGEN (CLINIC ADMIN) - ipratropium-albuterol (DUONEB) 0.5-2.5 (3) MG/3ML nebulizer solution 3 mL Patient placed on 2L NC due to SpO2 being at 87% with tachypnea and shortness of breath. She improved to 91%. Per patient, she brought her nebulizer supplies as she said her next dose would be due at 10. Will provide nebulizer treatment here in clinic due to symptoms consistent with exacerbation. Due to patient's worsening respiratory status, likely secondary to not being able to continue Budesonide nebulizer at discharge, and potential for home oxygen, will advise patient to present to ED for further evaluation and assistance with respiratory treatment stabilization and management. Advised that further evaluation for home oxygen need would also be considered. Report was called to inform [facility] of patient's planned arrival and current concerns. Return if symptoms worsen or fail to improve. Orders Placed This Encounter AMB REFERRAL TO PULMONARY ipratropium-albuterol (DUONEB) 0.5-2.5 (3) MG/3ML nebulizer solution 3 mL [place] OXYGEN (CLINIC ADMIN) Requested Prescriptions No prescriptions requested or ordered in this encounter I discussed my impression and plan of care in detail with the patient The risks and benefits of treatment plan and medications and vaccines, if received today, were extensively explained to the patient, who clearly voiced understanding and agreement. Patient advised to continue current medication regimen and new medication, if prescribed, were also reviewed in detail during the visit today. Patient was given the opportunity to ask questions about their condition and I answered all the questions to the best of my ability and to the patient s satisfaction & patient voiced understanding. Patient advised to check with their pharmacist if they are getting the right dosage as was prescribed to them. Patient advised to follow up with this clinic as recommended. However, reassurance was provided that in the interim, this office is always available to respond to questions, concerns and needs. Patient advised to call the office with any questions or concerns. STEVEN Cabrera documented in this encounter [facility] 11-11-2021 Hospital course Narrative Hospital Medicine Discharge Summary Patient: Chin Whiting, : 1960, Date of face to face patient encounter: 11/14/2021 Admission Details Admit Date 11/09/2021 Discharge Date 11/11/2021 Inpatient Days 1 Summary of Hospitalization Dear Doctors, I recently had the opportunity to care for Chin Whiting during her recent hospital stay at [facility]. As you may know, Chin Whiting is a 61 y.o. female with a PMHx of COPD and active tobacco abuse admitted for AECOPD. COVID negative. Started on Prednisone burst, provided w/ Rx on discharge. Started on ATbx on admission but given low suspicion of pulmonary infection, ATbx discontinued on discharge. Home going O2 test completed, pt did not qualify for home o2. Weaned off to RA on discharge. Pt was counseled on tobacco cessation. Pt was provided ICS, BRANDON and nebulizer on discharge. Pt was discharged home in stable condition. BMI: 17 Underweight Upon discharge the patient's code was Full Code Please see the remainder of this document for relevant data from this admission as well as the patient's discharge instructions and follow-up appointments. An electronic copy of the patient's records can be obtained via [email or web address] at [email or web address] It has been my pleasure participating in this patient's care. Please contact me with any questions or concerns regarding her hospital stay. The total time of discharge was 30 minutes. Sincerely, Amber Jerome DO Division of Hospital Medicine Relevant Data from this Admission Physical Exam Gen: Alert, Awake, NAD Eyes: PERRLA, EOMI, no icterus ENT: MMM, trachea midline Resp: CTA & P, normal respiratory effort Cardio: RRR, normal S1, S2, no M/R/G. No CASEY. GI: S/NT/ND, NABS MS: No joint effusions or erythema Skin: No jaundice or rash Neuro: inspecting and testing lead hand 3-7, 9-11 intact and equal. Strength grossly equal in muscle groups of the bilateral UEs and LEs. Psych: Ox3, appropriate affect and cognition No results for input(s): WBC, HGB, PLATELET, SODIUM, POTASSIUM, CO2, ANIONGAP, BUN, CREATSERUM, MAGNESIUM, PHOSPHORUS, AST, ALT, ALKPHOS, BILITOTAL, BILIDIRECT, INR, PTT, PROCALCITONI, BNP, TROP in the last 72 hours. Patient Instructions Future Appointments Date Time Provider Department Center 11/21/2021 10:20 AM Yulia Pisano GATE SHEAR OPERATOR-PUBLIC SPEAKING PROFESSOR [facility]/20/[facility]21 10:[address] [facility] RJCCTD [facility] 09/28/2022 11:00 AM Yulia Pisano APRN-PUBLIC SPEAKING PROFESSOR [facility] 10/10/2022 10:40 AM Meaghan Chambers APRN-PUBLIC SPEAKING PROFESSOR CERRHUHB [facility] Emergency Department [address] [facility] [address] Go to As needed for worsening symptoms [facility] [phone] Follow up [facility]. Please call for follow up. Medication List for when you go home START taking these medications budesonide 0.5 MG/2ML nebulizer suspension Inhale 2 mL every 12 hours. Commonly known as: PULMICORT predniSONE 20 MG TABS Take 2 tablets by mouth daily for 3 days. Commonly known as: DELTASONE CHANGE how you take these medications ipratropium-albuterol 0.5-2.5 (3) MG/3ML nebulizer solution Take 3 mL by nebulization every 4 hours as needed for Wheezing, Respiratory Distress, Breathing Treatment, Cough or Shortness of Breath. Commonly known as: CARL What changed: How often you have reported taking this medication has changed You should now only take this medication as needed Spiriva Respimat 2.5 MCG/ACT AERS inhaler Inhale 2 puffs daily. What changed: The quantity you have reported taking of this medication has changed How you take your medication has changed How often you have reported taking this medication has changed additional instructions Generic drug: tiotropium CONTINUE taking these medications DISABILITY PLACARD Disability placard end date 09/28/2022 For diagnoses: Chronic pain of right heel fluticasone 50 MCG/ACT SUSP nasal spray 1 spray by Nasal route daily. Commonly known as: FLONASE STOP taking these medications Calcium Carbonate-Vitamin D3 600-400 MG-UNIT TABS [place] DMT 30-30 MG TABS Generic drug: Dextromethorphan-Pyrilamine loratadine 10 MG TABS Commonly known as: Claritin Ventolin HFA 108 (90 Base) MCG/ACT AERS inhaler Generic drug: albuterol documented in this encounter [facility] 11-11-2021 Note Formatting of this n ote might be different from the original. Discharge teaching/instructions provided at this time. Pt instructed on new medications and nebulizer treatments. Spoke with pt regarding smoking cessation. Pt did not qualify for home O2 use. Nebulizer delivered to bedside. IV access discontinued at this time. [facility] 11-11-2021 Note Formatting of this n ote might be different from the original. Discharge teaching/instructions provided at this time. Pt instructed on new medications and nebulizer treatments. Spoke with pt regarding smoking cessation. Pt did not qualify for home O2 use. Nebulizer delivered to bedside. IV access discontinued at this time. [facility] 11-11-2021 Miscellaneous Notes Discharge teaching/instructions provided at this time. Pt instructed on new medications and nebulizer treatments. Spoke with pt regarding smoking cessation. Pt did not qualify for home O2 use. Nebulizer delivered to bedside. IV access discontinued at this time. 11/11/21 1219 Patient Choice for Post-Acute Providers Resumption of care? No Establishing care? Yes Level of care for choice DME Preferred geographic region Discussed and honored Source of list Aidin List was provided to Patient Method of delivery In Person Is the provider part of a joint venture or have a financial relationship with discharging hospital? Yes Was the patient notified of financial relationship? Yes Pt chose [employer] to supply nebulizer. Jyothi Haque RN, BSN Clinical Custom Protection Officer [phone] Walk of life completed on this pt. SPO2 of pt as follows: At rest on room air: 95% Exertion on room air: 92% Exertion with 1L of O2 via nasal cannula: 97% Pt denies home oxygen use and was placed on 1L here in the hospital. pts O2 was off for 30 minutes prior to completion of walk of life. Pt denies SOB and/or chest pain. Problem: Pain, Acute (Adult) Goal: Acceptable Pain Control/Comfort Level Description: Patient will demonstrate the desired outcomes by discharge/transition of care. Outcome: Ongoing Flowsheets (Taken 11/11/2021 1104) Acceptable Pain Control/Comfort Level: making progress toward outcome Problem: Fall/Trauma/Injury Risk (Adult) Goal: Fall/Trauma/Injury Risk: Absence of Trauma/Injury/Falls Description: Patient will demonstrate the desired outcomes. Outcome: Ongoing Problem: Fall/Trauma/Injury Risk (Adult) Goal: Knowledge of risk factors/behavior modification Description: Knowledge of risk factors/behavior modification for fall/injury prevention Outcome: Ongoing On admission to [facility], from Emergency Department a dual RN initial assessment of skin condition was performed by Attila Rivas RN and Ching GOLDSTEIN. Skin Assessment: WDL Yvon Score: 20 LDA Added:Sandra Rivas RN I certify that this patient requires inpatient services at this time. I anticipate the expected length of stay will include at least two midnights. Inpatient services are due to the following medical concerns. COPD Exacerbation: Known history of COPD. Not on O2 at home. Smokes at home - COVID pending - Prednisone 40 mg x 5 - Doxycycline x 5 days (azithromycin allergy) - Scheduled Duonebs; Tiotropium - Maintain SpO2 > 88% - Will need repeat WOL test prior to discharge to see if needs home O2 - Referral placed for pulmonary rehabilitation Tobacco Use: Cessation counseled Depression: No meds Plans for post hospitalization care will be discharge to home. Chin Whiting is a 61 y.o. 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 Chronic obstructive pulmonary disease (COPD) COVID-19 05/2021 Depression Heel fracture 03/21/2014 right heel Lung nodule s/p open lung biopsy, path benign Migraines Neck pain s/p cervical steroid injection Pneumonia 2001 Whooping cough Past Surgical History: Procedure Laterality Date COMPLETE EXTRACTION OF TEETH 08/26/2018 COLONOSCOPY DIAGNOSTIC N/A 05/03/2018 Laterality: N/A; Surgeon: Steven Gardner MD; Location: [facility] [place] COLONOSCOPY FOR COLORECTAL CANCER SCREENING HIGH RISK INDIVIDUAL N/A 05/02/2018 Laterality: N/A; Surgeon: Rohit Rojas MD; Location: [facility] [place] LUNG BIOPSY 03/24 for lung nodule AMPUTATION FINGER OR HAND 2008 L 5th digit; chondrosarcoma HYSTERECTOMY, TOTAL ABDOMINAL 1996 ARM SURGERY 1995 fracture TONSILLECTOMY 1975 HYSTERECTOMY ~1995 OOPHORECTOMY Bilateral ~1995 Social History Tobacco Use Smoking status: Current Every Day Smoker Packs/day: 0.33 Years: 30.00 Pack years: 9.90 Types: Cigarettes Smokeless tobacco: Never Used Tobacco comment: quit on 08/24/2018 Substance Use Topics Alcohol use: No Comment: rare No Order No active isolations Recent Vitals: Blood pressure 138/90, pulse 93, temperature 97.5 F (36.4 C), temperature source Oral, resp. rate 16, height 1.626 m (5' 4"), SpO2 95 %, not currently . Recent ABG/VBG: Home Medications: Prior to Admission Medications Prescriptions Last Dose Informant Patient Reported? Taking? Calcium Carbonate-Vitamin D3 600-400 MG-UNIT tablet Yes No Sig: Take 1 tablet by mouth 2 times daily with meals. DISABILITY PLACARD No No Sig: Disability placard end date 09/28/2022 Dextromethorphan-Pyrilamine (K[place]wood DMT) 30-30 MG tablet No No Sig: Take 1 tablet by mouth 2 times daily as needed. Ventolin HFA 108 (90 Base) MCG/ACT Aero Soln inhaler No No Sig: INHALE 2 PUFFS BY MOUTH EVERY 6 HOURS NEEDED FOR SHORTNESS OF BREATH, COUGH OR WHEEZING calcium carbonate-vitamin D 600mg-400units 600-400 MG-UNIT tablet No No Sig: Take 1 tablet by mouth 2 times daily with meals. fluticasone 50 MCG/ACT Suspension nasal spray No No Si spray by Nasal route daily. ipratropium-albuterol 0.5-2.5 (3) MG/3ML nebulizer solution No No Sig: Take 3 mL by nebulization every 6 hours as needed for Wheezing, Shortness of Breath or Breathing Treatment. loratadine (Claritin) 10 MG tablet No No Sig: Take 1 tablet by mouth daily. tiotropium (Spiriva Respimat) 2.5 MCG/ACT Aero Soln inhaler No No Sig: Inhale one puff every day Facility-Administered Medications: None Breath Sounds: Diminished, expiratory wheezing Current Orders: Duo Q6 Spiriva Tx Indication: COPD Home tx Respiratory Plan of Care: Continue treatments as ordered. Patient reports taking duoneb treatments Q6 at home. Deep breathing and coughing encouraged with patient. Will continue to monitor. The patients respiratory plan of care was updated by Komal Valencia RCP 11/10/2021 12:44 AM DEPARTMENT OF EMERGENCY MEDICINE CHIEF COMPLAINT Chief Complaint Patient presents with Chest Pain Shortness of Breath HISTORY OF PRESENT ILLNESS Chin Whiting is a 61 y.o. female was appropriately risk stratified for observation level of care and was placed on the [facility] Asthma protocol. Symptoms started with PMH adenoid hypertrophy, back pain, cardiac angina, COPD, COVID-19 recently (received antibody infusion in May), depression, heel fracture, lung nodule, migraines, neck pain, pneumonia, whooping cough p/w chest pain, shortness of breath, past six days, presented to the ED for further evaluation. Initial team with concern for COPD exacerbation, given steroids, breathing treatment. Never been intubated or admitted for COPD exacerbation. Labs overall WNL, EKG without obvious ischemic changes. Plan for observation for symptom management, cardiac monitoring, breathing treatments, reassessment with WOL. Personal, surgical, family, and social history reviewed with patient. REVIEW OF SYSTEMS Review of Systems Constitutional: Negative. Negative for chills and fever. HENT: Negative. Eyes: Negative. Respiratory: Positive for cough, shortness of breath and wheezing. Negative for hemoptysis and sputum production. Cardiovascular: Positive for chest pain. Negative for palpitations, orthopnea, claudication, leg swelling and PND. Gastrointestinal: Negative. Genitourinary: Negative. Musculoskeletal: Negative. Skin: Negative. Neurological: Negative. Negative for dizziness. Endo/Heme/Allergies: Negative. Psychiatric/Behavioral: Negative. All Other Systems Were Reviewed And Negative Unless Otherwise Noted PAST MEDICAL HISTORY Past Medical History Reviewed, Contributory Findings Include: No other endorsed PMH. 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 Past Surgical History: Procedure Laterality Date COMPLETE EXTRACTION OF TEETH 08/26/2018 COLONOSCOPY DIAGNOSTIC N/A 05/03/2018 Laterality: N/A; Surgeon: Steven Gardner MD; Location: [facility] [place] [facility]ON[facility]COPY FOR COLORECTAL CANCER SCREENING HIGH RISK INDIVIDUAL N/A 05/02/2018 Laterality: N/A; Surgeon: Rohit Rojas MD; Location: [facility]OSCOPY [place]G BI[facility]SY 03/24 for lung nodule AMPUTATION FINGER OR HAND 2007 L 5th digit; chondrosarcoma HYSTERECTOMY, TOTAL ABDOMINAL 1996 ARM SURGERY 1995 fracture TONSILLECTOMY 1975 HYSTERECTOMY ~1995 OOPHORECTOMY Bilateral ~1995 MEDICATIONS GIVEN IN THE ED Medications predniSONE (DELTASONE) tablet 40 mg (40 mg Oral Given 11/09/212047) ipratropium-albuterol (DUONEB) 0.5-2.5 (3) MG/3ML nebulizer solution 3 mL (has no administration in time range) ipratropium-albuterol (DUONEB) 0.5-2.5 (3) MG/3ML nebulizer solution 3 mL (3 mL Nebulization Given 11/09/212013) ALLERGIES Allergies Allergen Reactions Azithromycin Anaphylaxis Other reaction(s): Anaphylaxis, AOF No other known food or drugs or allergies. FAMILY HISTORY Family History Reviewed, Contributory Findings Include: No other endorsed family history per patient. Family History Problem Relation Age of Onset Diabetes Mother Hypertension Mother Other - Specify Mother alzheimers Other - Specify Son son of heart defect Heart Failure Son Hemachromatosis Father Other - Specify Father disorder - "too much iron in blood" Bleeding or Clotting Problems Son Platelet storage pool deficiency Other - Specify Son severe allergies Other - Specify Sister Chronic lung disease Aneurysm Brother Other - Specify Paternal Grandmother TB Other - Specify Cousin multiple myeloma Cancer- Other Paternal Uncle lymphoma Diabetes Paternal Grandfather Colorectal Cancer Neg Hx Breast Cancer Neg Hx Ovarian Cancer Neg Hx Uterine Cancer Neg Hx SOCIAL HISTORY Social History Reviewed, Contributory Findings Include: See below, no other endorsed social history. 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 Tobacco Use Smoking status: Current Every Day Smoker Packs/day: 0.33 Years: 30.00 Pack years: 9.90 Types: Cigarettes Smokeless tobacco: Never Used Tobacco comment: quit on 08/24/2018 Vaping Use Vaping Use: Never used Substance and Sexual Activity Alcohol use: No Comment: rare Drug use: Yes Types: Marijuana Comment: 3-4 x a week Sexual activity: Not Currently Partners: Male control/protection: Hysteroscopic Tubal Occlusion Other Topics Concern Not on file Social History Narrative Not on file Social Determinants of Health Financial Resource Strain: Low Risk Difficulty of Paying Living Expenses: Not hard at all Food Insecurity: No Food Insecurity Worried About Running Out of Food in the Last Year: Never true Ran Out of Food in the Last Year: Never true Transportation Needs: No Transportation Needs Lack of Transportation (Medical): No Lack of Transportation (Non-Medical): No Physical Activity: Inactive Days of Exercise per Week: 0 days Minutes of Exercise per Session: 0 min Stress: Stress Concern Present Feeling of Stress : To some extent Social Connections: Socially Isolated Frequency of Communication with Friends and Family: More than three times a week Frequency of Social Gatherings with Friends and Family: More than three times a week Attends Hindu Services: Never Active Member of Clubs or Organizations: No Attends Club or Organization Meetings: Never Marital Status: Intimate Partner Violence: Not At Risk Fear of Current or Ex-Partner: No Emotionally Abused: No Physically Abused: No Sexually Abused: No Housing Stability: Unknown Unable to Pay for Housing in the Last Year: No Number of Places Lived in the Last Year: Not on file Unstable Housing in the Last Year: No PHYSICAL EXAM BP 138/90 Pulse 93 Temp 97.5 F (36.4 C) (Oral) Resp 16 Ht 1.626 m (5' 4") SpO2 95% BMI 16.75 kg/m Smoking Status Current Every Day Smoker Physical Exam Vitals and nursing note reviewed. Constitutional: General: She is not in acute distress. Appearance: She is well-developed. She is not diaphoretic. HENT: Head: Normocephalic and atraumatic. Eyes: General: No scleral icterus. Conjunctiva/sclera: Conjunctivae normal. Pupils: Pupils are equal, round, and reactive to light. Neck: Vascular: No JVD. Cardiovascular: Rate and Rhythm: Normal rate and regular rhythm. Heart sounds: No murmur heard. No friction rub. No gallop. Pulmonary: Effort: Pulmonary effort is normal. No respiratory distress. Breath sounds: Examination of the right-upper field reveals wheezing. Examination of the left-upper field reveals wheezing. Examination of the right-middle field reveals wheezing. Examination of the left-middle field reveals wheezing. Examination of the right-lower field reveals wheezing. Examination of the left-lower field reveals wheezing. Wheezing present. No decreased breath sounds, rhonchi or rales. Chest: Chest wall: No tenderness. Abdominal: General: There is no distension. Palpations: Abdomen is soft. There is no mass. Tenderness: There is no abdominal tenderness. There is no guarding or rebound. Musculoskeletal: General: Normal range of motion. Cervical back: Normal range of motion and neck supple. Skin: General: Skin is warm and dry. Neurological: Mental Status: She is alert and oriented to person, place, and time. Cranial Nerves: No cranial nerve deficit. Psychiatric: Behavior: Behavior normal. Thought Content: Thought content normal. Judgment: Judgment normal. EDOU COURSE & MEDICAL DECISION MAKING Risk stratification appropriate for observation level of care. Patient was placed in EDOU on the Asthma protocol. Patient age greater than 64y/o? NO DDx includes: Asthma exacerbation, COPD exacerbation, GERD, gastritis, PUD, costochondritis, ACS, pericarditis, myocarditis, PE, bronchitis, PNA I reviewed the patients' medical records and nursing notes and noted their allergies, past medical history, and previous visits. The reviewed showed Results for orders placed or performed during the hospital encounter of 11/09/21 CHEM 7 (LYTES,BUN,CREA,GLUC) Result Value Ref Range Sodium 138 135 - 145 mmol/L Potassium 4.0 3.5 - 5.0 mmol/L Chloride 103 98 - 108 mmol/L CO2 29 21 - 31 mmol/L Glucose 154 (H) 70 - 99 mg/dL BUN 8 7 - 25 mg/dL Creatinine 0.85 0.50 - 1.20 mg/dL Bun/Crea Ratio 9 Osmolality (Calculated) 291 278 - 305 mOsm/kg Anion Gap 10 7 - 17 mmol/L eGFR, CKD-EPI, Female 78 >=60 mL/min/1.73m2 PHOSPHATE, INORGANIC Result Value Ref Range Phosphorous 3.4 2.2 - 4.6 mg/dL MAGNESIUM Result Value Ref Range Magnesium 2.0 1.6 - 2.6 mg/dL CALCIUM Result Value Ref Range Calcium 9.6 8.6 - 10.5 mg/dL HIGH SENSITIVITY TROPONIN I - SINGLE ORDER Result Value Ref Range hs-Troponin I 5 <34 ng/L B-TYPE NATRIURETIC PEPTIDE (BRAIN) Result Value Ref Range BNP 14 0 - 100 pg/mL CBC AND ELECTRONIC DIFF Result Value Ref Range WBC Count 8.35 3.99 - 11.19 K/uL RBC Count 4.82 3.91 - 5.04 M/uL Hemoglobin 15.1 11.4 - 15.2 g/dL Hematocrit 44.6 (H) 34.9 - 44.3 % Mean Cell Volume 92.5 79.6 - 97.7 fL Mean Cell Hgb 31.3 25.9 - 33.9 pg Mean Cell Hgb Conc 33.9 31.4 - 35.9 g/dL RBC Distribution 13.0 10.8 - 14.9 % Platelet Count 221 150 - 393 K/uL Mean Platelet Volume 10.5 8.5 - 12.2 fL DIFF STATUS Electronic Differential Segs + Bands Auto 46.3 % Immature Grans % 0.2 % Lymphocyte % Auto 37.1 % Monocyte % Auto 7.9 % Eosinophil % Auto 7.9 % Basophil % Auto 0.6 % Nucleated RBC 0.0 <=0.2 /100 WBC Segs + Bands,Absolute Auto 3.86 1.64 - 7.28 K/uL Immature Grans Absolute <0.04 <=0.09 K/uL Abs Lymph Auto 3.10 1.16 - 3.51 K/uL Abs Sunflower Auto 0.66 0.22 - 0.87 K/uL Abs Eos Auto 0.66 (H) 0.00 - 0.42 K/uL Abs Baso Auto 0.05 0.00 - 0.15 K/uL XR CHEST PA AND LATERAL Final Result IMPRESSION: No acute cardiopulmonary disease. Emphysema. I personally viewed and interpreted these images and I have reviewed and approved this report. The patient received the following interventions in the ED to date: Labs, EKG, chest x-ray, cardiac monitoring, home medications, breathing treatments, steroids, pending continued monitoring overnight, reassessment with WOL prior to discharge. On reassessment the patient's response to the interventions was slightly improved, vitals stable, still having some wheezing on exam, able to talk in full sentences, 94% on RA. While in the EDOU we will continue to check, monitor and reassess patient and alter our plan as clinically appropriate. This is a non-shared visit on 11/09/2021. Electronically signed by: Kelechi Blount PA-C, 11/09/2021 10:49 PM documented in this encounter [facility] 11-11-2021 Miscellaneous Notes Discharge teaching/instructions provided at this time. Pt instructed on new medications and nebulizer treatments. Spoke with pt regarding smoking cessation. Pt did not qualify for home O2 use. Nebulizer delivered to bedside. IV access discontinued at this time. 11/11/21 1219 Patient Choice for Post-Acute Providers Resumption of care? No Establishing care? Yes Level of care for choice DME Preferred geographic region Discussed and honored Source of list Aidin List was provided to Patient Method of delivery In Person Is the provider part of a joint venture or have a financial relationship with discharging hospital? Yes Was the patient notified of financial relationship? Yes Pt chose [facility] to supply nebulizer. Jyothi Haque RN, BSN Clinical Custom Protection Officer [phone] Walk of life completed on this pt. SPO2 of pt as follows: At rest on room air: 95% Exertion on room air: 92% Exertion with 1L of O2 via nasal cannula: 97% Pt denies home oxygen use and was placed on 1L here in the hospital. pts O2 was off for 30 minutes prior to completion of walk of life. Pt denies SOB and/or chest pain. Problem: Pain, Acute (Adult) Goal: Acceptable Pain Control/Comfort Level Description: Patient will demonstrate the desired outcomes by discharge/transition of care. Outcome: Ongoing Flowsheets (Taken 11/11/2021 1104) Acceptable Pain Control/Comfort Level: making progress toward outcome Problem: Fall/Trauma/Injury Risk (Adult) Goal: Fall/Trauma/Injury Risk: Absence of Trauma/Injury/Falls Description: Patient will demonstrate the desired outcomes. Outcome: Ongoing Problem: Fall/Trauma/Injury Risk (Adult) Goal: Knowledge of risk factors/behavior modification Description: Knowledge of risk factors/behavior modification for fall/injury prevention Outcome: Ongoing On admission to [facility], from Emergency Department a dual RN initial assessment of skin condition was performed by Attila Rivas RN and Ching GOLDSTEIN. Skin Assessment: WDL Yvon Score: 20 LDA Added:No Attila Rivas RN I certify that this patient requires inpatient services at this time. I anticipate the expected length of stay will include at least two midnights. Inpatient services are due to the following medical concerns. COPD Exacerbation: Known history of COPD. Not on O2 at home. Smokes at home - COVID pending - Prednisone 40 mg x 5 - Doxycycline x 5 days (azithromycin allergy) - Scheduled Duonebs; Tiotropium - Maintain SpO2 > 88% - Will need repeat WOL test prior to discharge to see if needs home O2 - Referral placed for pulmonary rehabilitation Tobacco Use: Cessation counseled Depression: No meds Plans for post hospitalization care will be discharge to home. Chin Whiting is a 61 y.o. 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 Chronic obstructive pulmonary disease (COPD) COVID-19 05/2021 Depression Heel fracture 03/21/2014 right heel Lung nodule s/p open lung biopsy, path benign Migraines Neck pain s/p cervical steroid injection Pneumonia 2002 Whooping cough Past Surgical History: Procedure Laterality Date COMPLETE EXTRACTION OF TEETH 08/26/2018 COLONOSCOPY DIAGNOSTIC N/A 05/03/2018 Laterality: N/A; Surgeon: Steven Gardner MD; Location: [facility] [place] COLONOSCOPY FOR COLORECTAL CANCER SCREENING HIGH RISK INDIVIDUAL N/A 05/02/2018 Laterality: N/A; Surgeon: Rohit Rojas MD; Location: [facility] ENDOSCOPY [place] BI[facility]SY 03/24 for lung nodule AMPUTATION FINGER OR HAND 2007 L 5th digit; chondrosarcoma HYSTERECTOMY, TOTAL ABDOMINAL 1996 ARM SURGERY 1995 fracture TONSILLECTOMY 1975 HYSTERECTOMY ~1995 OOPHORECTOMY Bilateral ~1995 Social History Tobacco Use Smoking status: Current Every Day Smoker Packs/day: 0.33 Years: 30.00 Pack years: 9.90 Types: Cigarettes Smokeless tobacco: Never Used Tobacco comment: quit on 08/24/2018 Substance Use Topics Alcohol use: No Comment: rare No Order No active isolations Recent Vitals: Blood pressure 138/90, pulse 93, temperature 97.5 F (36.4 C), temperature source Oral, resp. rate 16, height 1.626 m (5' 4"), SpO2 95 %, not currently . Recent ABG/VBG: Home Medications: Prior to Admission Medications Prescriptions Last Dose Informant Patient Reported? Taking? Calcium Carbonate-Vitamin D3 600-400 MG-UNIT tablet Yes No Sig: Take 1 tablet by mouth 2 times daily with meals. DISABILITY PLACARD No No Sig: Disability placard end date 09/28/2022 Dextromethorphan-Pyrilamine ([place]wood DMT) 30-30 MG tablet No No Sig: Take 1 tablet by mouth 2 times daily as needed. Ventolin HFA 108 (90 Base) MCG/ACT Aero Soln inhaler No No Sig: INHALE 2 PUFFS BY MOUTH EVERY 6 HOURS NEEDED FOR SHORTNESS OF BREATH, COUGH OR WHEEZING calcium carbonate-vitamin D 600mg-400units 600-400 MG-UNIT tablet No No Sig: Take 1 tablet by mouth 2 times daily with meals. fluticasone 50 MCG/ACT Suspension nasal spray No No Si spray by Nasal route daily. ipratropium-albuterol 0.5-2.5 (3) MG/3ML nebulizer solution No No Sig: Take 3 mL by nebulization every 6 hours as needed for Wheezing, Shortness of Breath or Breathing Treatment. loratadine (Claritin) 10 MG tablet No No Sig: Take 1 tablet by mouth daily. tiotropium (Spiriva Respimat) 2.5 MCG/ACT Aero Soln inhaler No No Sig: Inhale one puff every day Facility-Administered Medications: None Breath Sounds: Diminished, expiratory wheezing Current Orders: Duo Q6 Spiriva Tx Indication: COPD Home tx Respiratory Plan of Care: Continue treatments as ordered. Patient reports taking duoneb treatments Q6 at home. Deep breathing and coughing encouraged with patient. Will continue to monitor. The patients respiratory plan of care was updated by Komal Valencia RCP 11/10/2021 12:44 AM DEPARTMENT OF EMERGENCY MEDICINE CHIEF COMPLAINT Chief Complaint Patient presents with Chest Pain Shortness of Breath HISTORY OF PRESENT ILLNESS Chin Whiting is a 61 y.o. female was appropriately risk stratified for observation level of care and was placed on the [facility] Asthma protocol. Symptoms started with PMH adenoid hypertrophy, back pain, cardiac angina, COPD, COVID-19 recently (received antibody infusion in May), depression, heel fracture, lung nodule, migraines, neck pain, pneumonia, whooping cough p/w chest pain, shortness of breath, past six days, presented to the ED for further evaluation. Initial team with concern for COPD exacerbation, given steroids, breathing treatment. Never been intubated or admitted for COPD exacerbation. Labs overall WNL, EKG without obvious ischemic changes. Plan for observation for symptom management, cardiac monitoring, breathing treatments, reassessment with WOL. Personal, surgical, family, and social history reviewed with patient. REVIEW OF SYSTEMS Review of Systems Constitutional: Negative. Negative for chills and fever. HENT: Negative. Eyes: Negative. Respiratory: Positive for cough, shortness of breath and wheezing. Negative for hemoptysis and sputum production. Cardiovascular: Positive for chest pain. Negative for palpitations, orthopnea, claudication, leg swelling and PND. Gastrointestinal: Negative. Genitourinary: Negative. Musculoskeletal: Negative. Skin: Negative. Neurological: Negative. Negative for dizziness. Endo/Heme/Allergies: Negative. Psychiatric/Behavioral: Negative. All Other Systems Were Reviewed And Negative Unless Otherwise Noted PAST MEDICAL HISTORY Past Medical History Reviewed, Contributory Findings Include: No other endorsed PMH. 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 Chronic obstructive pulmonary disease (COPD) COVID-19 05/2021 Depression Heel fracture 03/21/2014 right heel Lung nodule s/p open lung biopsy, path benign Migraines Neck pain s/p cervical steroid injection Pneumonia 2002 Whooping cough SURGICAL HISTORY Past Surgical History Reviewed, Contributory Findings Include: No other endorsed PSH. Past Surgical History: Procedure Laterality Date COMPLETE EXTRACTION OF TEETH 08/26/2018 COLONOSCOPY DIAGNOSTIC N/A 05/03/2018 Laterality: N/A; Surgeon: Steven Gardner MD; Location: [facility]OSCOPY [place] [facility]ON[facility] FOR COLORECTAL CANCER SCREENING HIGH RISK INDIVIDUAL N/A 05/02/2018 Laterality: N/A; Surgeon: Rohit Rojas MD; Location: [facility] ENDOSCOPY [place]G BI[facility]SY 03/24 for lung nodule AMPUTATION FINGER OR HAND 2007 L 5th digit; chondrosarcoma HYSTERECTOMY, TOTAL ABDOMINAL 1996 ARM SURGERY 1995 fracture TONSILLECTOMY 1975 HYSTERECTOMY ~1995 OOPHORECTOMY Bilateral ~1995 MEDICATIONS GIVEN IN THE ED Medications predniSONE (DELTASONE) tablet 40 mg (40 mg Oral Given 11/09/212047) ipratropium-albuterol (DUONEB) 0.5-2.5 (3) MG/3ML nebulizer solution 3 mL (has no administration in time range) ipratropium-albuterol (DUONEB) 0.5-2.5 (3) MG/3ML nebulizer solution 3 mL (3 mL Nebulization Given 11/09/212013) ALLERGIES Allergies Allergen Reactions Azithromycin Anaphylaxis Other reaction(s): Anaphylaxis, AOF No other known food or drugs or allergies. FAMILY HISTORY Family History Reviewed, Contributory Findings Include: No other endorsed family history per patient. Family History Problem Relation Age of Onset Diabetes Mother Hypertension Mother Other - Specify Mother alzheimers Other - Specify Son son of heart defect Heart Failure Son Hemachromatosis Father Other - Specify Father disorder - "too much iron in blood" Bleeding or Clotting Problems Son Platelet storage pool deficiency Other - Specify Son severe allergies Other - Specify Sister Chronic lung disease Aneurysm Brother Other - Specify Paternal Grandmother TB Other - Specify Cousin multiple myeloma Cancer- Other Paternal Uncle lymphoma Diabetes Paternal Grandfather Colorectal Cancer Neg Hx Breast Cancer Neg Hx Ovarian Cancer Neg Hx Uterine Cancer Neg Hx SOCIAL HISTORY Social History Reviewed, Contributory Findings Include: See below, no other endorsed social history. 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 Tobacco Use Smoking status: Current Every Day Smoker Packs/day: 0.33 Years: 30.00 Pack years: 9.90 Types: Cigarettes Smokeless tobacco: Never Used Tobacco comment: quit on 08/24/2018 Vaping Use Vaping Use: Never used Substance and Sexual Activity Alcohol use: No Comment: rare Drug use: Yes Types: Marijuana Comment: 3-4 x a week Sexual activity: Not Currently Partners: Male control/protection: Hysteroscopic Tubal Occlusion Other Topics Concern Not on file Social History Narrative Not on file Social Determinants of Health Financial Resource Strain: Low Risk Difficulty of Paying Living Expenses: Not hard at all Food Insecurity: No Food Insecurity Worried About Running Out of Food in the Last Year: Never true Ran Out of Food in the Last Year: Never true Transportation Needs: No Transportation Needs Lack of Transportation (Medical): No Lack of Transportation (Non-Medical): No Physical Activity: Inactive Days of Exercise per Week: 0 days Minutes of Exercise per Session: 0 min Stress: Stress Concern Present Feeling of Stress : To some extent Social Connections: Socially Isolated Frequency of Communication with Friends and Family: More than three times a week Frequency of Social Gatherings with Friends and Family: More than three times a week Attends Hindu Services: Never Active Member of Clubs or Organizations: No Attends Club or Organization Meetings: Never Marital Status: Intimate Partner Violence: Not At Risk Fear of Current or Ex-Partner: No Emotionally Abused: No Physically Abused: No Sexually Abused: No Housing Stability: Unknown Unable to Pay for Housing in the Last Year: No Number of Places Lived in the Last Year: Not on file Unstable Housing in the Last Year: No PHYSICAL EXAM BP 138/90 Pulse 93 Temp 97.5 F (36.4 C) (Oral) Resp 16 Ht 1.626 m (5' 4") SpO2 95% BMI 16.75 kg/m Smoking Status Current Every Day Smoker Physical Exam Vitals and nursing note reviewed. Constitutional: General: She is not in acute distress. Appearance: She is well-developed. She is not diaphoretic. HENT: Head: Normocephalic and atraumatic. Eyes: General: No scleral icterus. Conjunctiva/sclera: Conjunctivae normal. Pupils: Pupils are equal, round, and reactive to light. Neck: Vascular: No JVD. Cardiovascular: Rate and Rhythm: Normal rate and regular rhythm. Heart sounds: No murmur heard. No friction rub. No gallop. Pulmonary: Effort: Pulmonary effort is normal. No respiratory distress. Breath sounds: Examination of the right-upper field reveals wheezing. Examination of the left-upper field reveals wheezing. Examination of the right-middle field reveals wheezing. Examination of the left-middle field reveals wheezing. Examination of the right-lower field reveals wheezing. Examination of the left-lower field reveals wheezing. Wheezing present. No decreased breath sounds, rhonchi or rales. Chest: Chest wall: No tenderness. Abdominal: General: There is no distension. Palpations: Abdomen is soft. There is no mass. Tenderness: There is no abdominal tenderness. There is no guarding or rebound. Musculoskeletal: General: Normal range of motion. Cervical back: Normal range of motion and neck supple. Skin: General: Skin is warm and dry. Neurological: Mental Status: She is alert and oriented to person, place, and time. Cranial Nerves: No cranial nerve deficit. Psychiatric: Behavior: Behavior normal. Thought Content: Thought content normal. Judgment: Judgment normal. EDOU COURSE & MEDICAL DECISION MAKING Risk stratification appropriate for observation level of care. Patient was placed in EDOU on the Asthma protocol. Patient age greater than 64y/o? NO DDx includes: Asthma exacerbation, COPD exacerbation, GERD, gastritis, PUD, costochondritis, ACS, pericarditis, myocarditis, PE, bronchitis, PNA I reviewed the patients' medical records and nursing notes and noted their allergies, past medical history, and previous visits. The reviewed showed Results for orders placed or performed during the hospital encounter of 11/09/21 CHEM 7 (LYTES,BUN,CREA,GLUC) Result Value Ref Range Sodium 138 135 - 145 mmol/L Potassium 4.0 3.5 - 5.0 mmol/L Chloride 103 98 - 108 mmol/L CO2 29 21 - 31 mmol/L Glucose 154 (H) 70 - 99 mg/dL BUN 8 7 - 25 mg/dL Creatinine 0.85 0.50 - 1.20 mg/dL Bun/Crea Ratio 9 Osmolality (Calculated) 291 278 - 305 mOsm/kg Anion Gap 10 7 - 17 mmol/L eGFR, CKD-EPI, Female 78 >=60 mL/min/1.73m2 PHOSPHATE, INORGANIC Result Value Ref Range Phosphorous 3.4 2.2 - 4.6 mg/dL MAGNESIUM Result Value Ref Range Magnesium 2.0 1.6 - 2.6 mg/dL CALCIUM Result Value Ref Range Calcium 9.6 8.6 - 10.5 mg/dL HIGH SENSITIVITY TROPONIN I - SINGLE ORDER Result Value Ref Range hs-Troponin I 5 <34 ng/L B-TYPE NATRIURETIC PEPTIDE (BRAIN) Result Value Ref Range BNP 14 0 - 100 pg/mL CBC AND ELECTRONIC DIFF Result Value Ref Range WBC Count 8.35 3.99 - 11.19 K/uL RBC Count 4.82 3.91 - 5.04 M/uL Hemoglobin 15.1 11.4 - 15.2 g/dL Hematocrit 44.6 (H) 34.9 - 44.3 % Mean Cell Volume 92.5 79.6 - 97.7 fL Mean Cell Hgb 31.3 25.9 - 33.9 pg Mean Cell Hgb Conc 33.9 31.4 - 35.9 g/dL RBC Distribution 13.0 10.8 - 14.9 % Platelet Count 221 150 - 393 K/uL Mean Platelet Volume 10.5 8.5 - 12.2 fL DIFF STATUS Electronic Differential Segs + Bands Auto 46.3 % Immature Grans % 0.2 % Lymphocyte % Auto 37.1 % Monocyte % Auto 7.9 % Eosinophil % Auto 7.9 % Basophil % Auto 0.6 % Nucleated RBC 0.0 <=0.2 /100 WBC Segs + Bands,Absolute Auto 3.86 1.64 - 7.28 K/uL Immature Grans Absolute <0.04 <=0.09 K/uL Abs Lymph Auto 3.10 1.16 - 3.51 K/uL Abs Sunflower Auto 0.66 0.22 - 0.87 K/uL Abs Eos Auto 0.66 (H) 0.00 - 0.42 K/uL Abs Baso Auto 0.05 0.00 - 0.15 K/uL XR CHEST PA AND LATERAL Final Result IMPRESSION: No acute cardiopulmonary disease. Emphysema. I personally viewed and interpreted these images and I have reviewed and approved this report. The patient received the following interventions in the ED to date: Labs, EKG, chest x-ray, cardiac monitoring, home medications, breathing treatments, steroids, pending continued monitoring overnight, reassessment with WOL prior to discharge. On reassessment the patient's response to the interventions was slightly improved, vitals stable, still having some wheezing on exam, able to talk in full sentences, 94% on RA. While in the EDOU we will continue to check, monitor and reassess patient and alter our plan as clinically appropriate. This is a non-shared visit on 11/09/2021. Electronically signed by: Kelechi Blount PA-C, 11/09/2021 10:49 PM documented in this encounter [facility] 11-11-2021 History of Present illness Narrative Final Discharge Planning and Transportation Final Discharge Planning Discharge Disposition: Home Services at Discharge: DME Selected Continued Care - Admitted Since 11/09/2021 Durable Medical Equipment Coordination complete. Service Provider Selected Services Address Phone Fax Patient Preferred [facility] Durable Medical Equipment [facility] [address] -- [phone] -- Plan Plan: Pt to dc home. [facility] to deliver nebulizer to room prior to dc. Patient/Family In Agreement With Plan: yes Transportation Mode of Transfer: private vehicle Accompanied By: family member Jyothi Haque RN, BSN Clinical Custom Protection Officer [phone] Discharge Planning Patient Assessment Admission Assessment Patient Assessment Completed: Yes Anticipated discharge disposition: Home Reason for Admission: CP, SOB Is the patient able to participate in the assessment?: Yes Information source: Patient, Review of Medical Record Information Source Name/Contact: Chin Whiting [phone] Demographics Verified and Updated: Yes Has the patient been admitted to any hospital in the last 30 days?: No Advanced Care Planning Has the patient completed Advance Directives?: Not Completed Referral to Social Work for Advance Care Planning? : Patient Declines Legal Next of Kin Does the patient have a Guardian?: No Spouse: No Adult Child(yolanda), List All Adult Children: Yes Name and Contact information: Jeffrey Greene [phone] Would you like to add additional adult children?: Yes Name and Contact information: Yulia Greene [phone] Name and Contact information: Jyothi Figueredo [phone] Name and Contact information: Almita Greene [phone] Parent(s) - List All Living Parents: Yes Name and Contact information: Father still alive, mother Would you like to add additional parents?: No Adult Sibling(s), List All Adult Siblings: Yes Name and Contact information: 1 sister still living Would you like to add additional adult siblings?: No Nearest Adult Related by Blood or Adoption: Yes Would you like to add additional adults related by blood or adoption?: No Patient Reports No Relatives by Blood or Adoption.: No Referral to Social Work to Identify Legal Next of Kin?: No Reviewed and Updated in Demographics? : Yes Outpatient Providers Does patient have a primary care physician? : Yes When was the patient's last PCP visit?: > 30 days Does the patient follow any specialists?: Yes Reviewed and updated Care Team?: Yes Patient Care Team: STEVEN Cabrera as PCP - General (Certified Nurse Practitioner) STEVEN Wolfe as Nurse Practitioner (Rheumatology) Martin Gilbert MD as Sports Internship (Physical Medicine & Rehabilitation) Dior Mcgee MD as Front Office Spec (Dermatology) Environment/Caregivers Is the patient from a facility or jail?: No Patient lives with: Child(yolanda) - Independent, Other (ex Jeffrey Greene) Living Environment: Mobile Home How many steps does the patient have to navigate to enter or inside the home? : 3 Does the patient have a first floor set-up with bed and bathroom?: Yes Patient Caregiving Responsibilities: Self Patient-identified caregiver/support network: Family Who does the patient identify as a teachable caregiver(s)?: Child(yolanda) - Independent, Other Family Services Does the patient use a home health or hospice agency?: No Current with dialysis?: No Does the patient use any community programs or services?: No Does patient use DME? : walker, wheelchair, straight cane, nebulizer (has the following DME but does not use, nebulizer is her grandsons,) Would you like to add additional DME providers?: No Does the patient use oxygen?: No (not currently, new requirement this admission) Does patient use medical supplies? : nebulizer supplies Would you like to add additional medical suppliers?: No Anticipated Changes Related to Illness/Injury? : No Initial ADLs Prior to Arrival What is the patient's baseline physical functioning prior to this acute illness?: independent What is the patient's baseline cognitive functioning prior to this acute illness?: independent Is the patient's baseline functioning changed by this acute illness? : No Concerns with patient being able to care for themselves at home? : No Are there therapy or specialists consults?: No Does the patient's home require any home modifications for discharge? : No CM to recommend therapy or other consults? : No Medication Management Does the patient have prescription insurance coverage? : Yes Is the patient on Anticoagulation? : No [id number] [place] [address] - [address] [facility] [address] [facility] [address] Pediatric Speech Therapist Does the patient or tour sales representative express financial concerns? : No Employed?: Yes Coping/Stress Concerns about patient s coping and stress?: No Concerns about patient s caregiver s coping and stress?: Unable to Assess Values and Beliefs Cultural or sikh practices that may impact discharge planning and/or medical care?: No Initial Discharge Planning Anticipated discharge disposition: Home Transportation Available for Discharge: Family or Friend Anticipated DME: nebulizer, oxygen Anticipated Services at Discharge: Outpatient clinical services (ie: lab draws, transfusions, injectables), Outpatient follow up, DME (Pulmonary Rehab) Patient Assessment Completed: Yes Risk of Readmission: 2.1 Category Reference: High:16-100 Mod-High:10-16 Mod-Low: 5-10 Low: 0-5 Expected Discharge Date: 11/12/2021 Discharge Planning Summary- Patient with new oxygen requirement. May need new O2 at discharge. CM spoke with patient about referral process, and pt states she wants all her care through [facility] and wants to use [facility]. Patient also expressed the need for a new nebulizer, pt states she has always used her grandsons. Patient also wants [facility] to provide nebulizer. Case Management Plan 1. CM met with patient at bedside, introduced and explained CM role and function in multidisciplinary team. 2. CM will continue to follow the patient for needs while in the ED. 3. Final plan will be determined closer to discharge, pending therapy and medical team recommendations. Primary in patient CM will follow for any additional discharge coordination. Diane COOK, FAMILY SUPPORT COORDINATORwildlife conservation professor [phone] documented in this encounter [facility] 11-11-2021 History of Present illness Narrative Final Discharge Planning and Transportation Final Discharge Planning Discharge Disposition: Home Services at Discharge: DME Selected Continued Care - Admitted Since 11/09/2021 Durable Medical Equipment Coordination complete. Service Provider Selected Services Address Phone Fax Patient Preferred [facility] Durable Medical Equipment [address] [id number] -- [phone] -- Plan Plan: Pt to dc home. [facility] to deliver nebulizer to room prior to dc. Patient/Family In Agreement With Plan: yes Transportation Mode of Transfer: private vehicle Accompanied By: family member Jyothi Haque RN, BSN Clinical Custom Protection Officer [phone] Discharge Planning Patient Assessment Admission Assessment Patient Assessment Completed: Yes Anticipated discharge disposition: Home Reason for Admission: CP, SOB Is the patient able to participate in the assessment?: Yes Information source: Patient, Review of Medical Record Information Source Name/Contact: Chin Whiting [phone] Demographics Verified and Updated: Yes Has the patient been admitted to any hospital in the last 30 days?: No Advanced Care Planning Has the patient completed Advance Directives?: Not Completed Referral to Social Work for Advance Care Planning? : Patient Declines Legal Next of Kin Does the patient have a Guardian?: No Spouse: No Adult Child(yolanda), List All Adult Children: Yes Name and Contact information: Jeffreylilly Nice Jc [phone] Would you like to add additional adult children?: Yes Name and Contact information: Yulia Jc [phone] Name and Contact information: Jyothi Figueredo [phone] Name and Contact information: Almita Greene [phone] Parent(s) - List All Living Parents: Yes Name and Contact information: Father still alive, mother Would you like to add additional parents?: No Adult Sibling(s), List All Adult Siblings: Yes Name and Contact information: 1 sister still living Would you like to add additional adult siblings?: No Nearest Adult Related by Blood or Adoption: Yes Would you like to add additional adults related by blood or adoption?: No Patient Reports No Relatives by Blood or Adoption.: No Referral to Social Work to Identify Legal Next of Kin?: No Reviewed and Updated in Demographics? : Yes Outpatient Providers Does patient have a primary care physician? : Yes When was the patient's last PCP visit?: > 30 days Does the patient follow any specialists?: Yes Reviewed and updated Care Team?: Yes Patient Care Team: STEVEN Cabrera as PCP - General (Certified Nurse Practitioner) STEVEN Wolfe as Nurse Practitioner (Rheumatology) Martin Gilbert MD as Sports Internship (Physical Medicine & Rehabilitation) Dior Mcgee MD as Front Office Spec (Dermatology) Environment/Caregivers Is the patient from a facility or jail?: No Patient lives with: Child(yolanda) - Independent, Other (ex Jeffrey Greene) Living Environment: Mobile Home How many steps does the patient have to navigate to enter or inside the home? : 3 Does the patient have a first floor set-up with bed and bathroom?: Yes Patient Caregiving Responsibilities: Self Patient-identified caregiver/support network: Family Who does the patient identify as a teachable caregiver(s)?: Child(yolanda) - Independent, Other Family Services Does the patient use a home health or hospice agency?: No Current with dialysis?: No Does the patient use any community programs or services?: No Does patient use DME? : walker, wheelchair, straight cane, nebulizer (has the following DME but does not use, nebulizer is her grandsons,) Would you like to add additional DME providers?: No Does the patient use oxygen?: No (not currently, new requirement this admission) Does patient use medical supplies? : nebulizer supplies Would you like to add additional medical suppliers?: No Anticipated Changes Related to Illness/Injury? : No Initial ADLs Prior to Arrival What is the patient's baseline physical functioning prior to this acute illness?: independent What is the patient's baseline cognitive functioning prior to this acute illness?: independent Is the patient's baseline functioning changed by this acute illness? : No Concerns with patient being able to care for themselves at home? : No Are there therapy or specialists consults?: No Does the patient's home require any home modifications for discharge? : No CM to recommend therapy or other consults? : No Medication Management Does the patient have prescription insurance coverage? : Yes Is the patient on Anticoagulation? : No [id number] [place] [address] - [address] [facility] [address] Pediatric Speech Therapist Does the patient or tour sales representative express financial concerns? : No Employed?: Yes Coping/Stress Concerns about patient s coping and stress?: No Concerns about patient s caregiver s coping and stress?: Unable to Assess Values and Beliefs Cultural or sikh practices that may impact discharge planning and/or medical care?: No Initial Discharge Planning Anticipated discharge disposition: Home Transportation Available for Discharge: Family or Friend Anticipated DME: nebulizer, oxygen Anticipated Services at Discharge: Outpatient clinical services (ie: lab draws, transfusions, injectables), Outpatient follow up, DME (Pulmonary Rehab) Patient Assessment Completed: Yes Risk of Readmission: 2.1 Category Reference: High:16-100 Mod-High:10-16 Mod-Low: 5-10 Low: 0-5 Expected Discharge Date: 11/12/2021 Discharge Planning Summary- Patient with new oxygen requirement. May need new O2 at discharge. CM spoke with patient about referral process, and pt states she wants all her care through [facility] and wants to use [facility]. Patient also expressed the need for a new nebulizer, pt states she has always used her grandsons. Patient also wants [facility] to provide nebulizer. Case Management Plan 1. CM met with patient at bedside, introduced and explained CM role and function in multidisciplinary team. 2. CM will continue to follow the patient for needs while in the ED. 3. Final plan will be determined closer to discharge, pending therapy and medical team recommendations. Primary in patient CM will follow for any additional discharge coordination. Diane COOK RN wildlife conservation professor [phone] documented in this encounter [facility] 11-11-2021 Note Formatting of this n ote is different from the original. 11/11/21 1219 Patient Choice for Post-Acute Providers Resumption of care? No Establishing care? Yes Level of care for choice DME Preferred geographic region Discussed and honored Source of list Aidin List was provided to Patient Method of delivery In Person Is the provider part of a joint venture or have a financial relationship with discharging hospital? Yes Was the patient notified of financial relationship? Yes Pt chose [facility] to supply nebulizer. Jyothi Haque RN, BSN Clinical Custom Protection Officer [phone] [facility] 11-11-2021 Note Formatting of this n ote is different from the original. 11/11/21 121 Patient Choice for Post-Acute Providers Resumption of care? No Establishing care? Yes Level of care for choice DME Preferred geographic region Discussed and honored Source of list Aidin List was provided to Patient Method of delivery In Person Is the provider part of a joint venture or have a financial relationship with discharging hospital? Yes Was the patient notified of financial relationship? Yes Pt chose [facility] to supply nebulizer. Jyothi Haque RN, BSN Clinical Custom Protection Officer [phone] [facility] 11-11-2021 Note Formatting of this n ote might be different from the original. Walk of life completed on this pt. SPO2 of pt as follows: At rest on room air: 95% Exertion on room air: 92% Exertion with 1L of O2 via nasal cannula: 97% Pt denies home oxygen use and was placed on 1L here in the hospital. pts O2 was off for 30 minutes prior to completion of walk of life. Pt denies SOB and/or chest pain. [facility] 11-11-2021 Note Formatting of this n ote might be different from the original. Walk of life completed on this pt. SPO2 of pt as follows: At rest on room air: 95% Exertion on room air: 92% Exertion with 1L of O2 via nasal cannula: 97% Pt denies home oxygen use and was placed on 1L here in the hospital. pts O2 was off for 30 minutes prior to completion of walk of life. Pt denies SOB and/or chest pain. [facility] 11-11-2021 Note Formatting of this n ote might be different from the original. Problem: Pain, Acute (Adult) Goal: Acceptable Pain Control/Comfort Level Description: Patient will demonstrate the desired outcomes by discharge/transition of care. Outcome: Ongoing Flowsheets (Taken 11/11/2021 1104) Acceptable Pain Control/Comfort Level: making progress toward outcome T [facility] 11-11-2021 Note Formatting of this n ote might be different from the original. Problem: Pain, Acute (Adult) Goal: Acceptable Pain Control/Comfort Level Description: Patient will demonstrate the desired outcomes by discharge/transition of care. Outcome: Ongoing Flowsheets (Taken 11/11/2021 1104) Acceptable Pain Control/Comfort Level: making progress toward outcome [facility] 11-11-2021 Note Formatting of this n ote might be different from the original. Problem: Fall/Trauma/Injury Risk (Adult) Goal: Fall/Trauma/Injury Risk: Absence of Trauma/Injury/Falls Description: Patient will demonstrate the desired outcomes. Outcome: Ongoing Problem: Fall/Trauma/Injury Risk (Adult) Goal: Knowledge of risk factors/behavior modification Description: Knowledge of risk factors/behavior modification for fall/injury prevention Outcome: Ongoing [facility] 11-11-2021 Note Formatting of this n ote might be different from the original. Problem: Fall/Trauma/Injury Risk (Adult) Goal: Fall/Trauma/Injury Risk: Absence of Trauma/Injury/Falls Description: Patient will demonstrate the desired outcomes. Outcome: Ongoing Problem: Fall/Trauma/Injury Risk (Adult) Goal: Knowledge of risk factors/behavior modification Description: Knowledge of risk factors/behavior modification for fall/injury prevention Outcome: Ongoing [facility] 11-11-2021 Note Formatting of this n ote might be different from the original. On admission to [facility], from Emergency Department a dual RN initial assessment of skin condition was performed by Attila Rivas RN and Ching GOLDSTEIN. Skin Assessment: WDL Yvon Score: 20 LDA Added:No Attila Rivas RN [facility] 11-11-2021 Note Formatting of this n ote might be different from the original. On admission to [facility], from Emergency Department a dual RN initial assessment of skin condition was performed by Attila Rivas RN and Ching GOLDSTEIN. Skin Assessment: WDL Yvon Score: 20 LDA Added:No Attila Rivas RN [facility] 11-10-2021 Note Formatting of this n ote is different from the original. I certify that this patient requires inpatient services at this time. I anticipate the expected length of stay will include at least two midnights. Inpatient services are due to the following medical concerns. COPD Exacerbation: Known history of COPD. Not on O2 at home. Smokes at home - COVID pending - Prednisone 40 mg x 5 - Doxycycline x 5 days (azithromycin allergy) - Scheduled Duonebs; Tiotropium - Maintain SpO2 > 88% - Will need repeat WOL test prior to discharge to see if needs home O2 - Referral placed for pulmonary rehabilitation Tobacco Use: Cessation counseled Depression: No meds Plans for post hospitalization care will be discharge to home. [facility] 11-10-2021 Note Formatting of this n ote is different from the original. I certify that this patient requires inpatient services at this time. I anticipate the expected length of stay will include at least two midnights. Inpatient services are due to the following medical concerns. COPD Exacerbation: Known history of COPD. Not on O2 at home. Smokes at home - COVID pending - Prednisone 40 mg x 5 - Doxycycline x 5 days (azithromycin allergy) - Scheduled Duonebs; Tiotropium - Maintain SpO2 > 88% - Will need repeat WOL test prior to discharge to see if needs home O2 - Referral placed for pulmonary rehabilitation Tobacco Use: Cessation counseled Depression: No meds Plans for post hospitalization care will be discharge to home. [facility] 11-10-2021 Physician Emergency department Note This patient was appropriately risk stratified for observation level of care and placed on an observation protocol in our Clinical Decision Unit. The patient's intensity of service and severity of illness was appropriately aligned with observation level of care. Medical Decision Making: Chin Whiting is a 61 y.o. female who presented with difficulty breathing. Work up in the emergency department revealed likely copd exacerbation. The pt was placed in observation for continued treatments overnight. Since placement in observation, pt feeling improved but having episodes of hypoxia. Physical Exam: VITAL SIGNS: BP 129/71 Pulse 103 Temp 97.6 F (36.4 C) (Oral) Resp 20 Ht 1.626 m (5' 4") SpO2 92% BMI 16.75 kg/m Smoking Status Current Every Day Smoker Gen: chronically ill appearing Respiratory: Mild tachypnea Normal breath sounds, No wheezing, no rales, No chest tenderness. Cardiovascular: Normal heart rate, Normal rhythm, No murmurs, No rubs, No gallops. GI: Soft, No tenderness, No masses, No pulsatile masses. Neuro: Grossly neurologically intact Disposition: Admit The patient has NOT met appropriate clinical criteria to be discharged from this CDU observation protocol. As such, the patient has failed to be discharged from observation level of care and will require inpatient admission to provide sufficient stabilization and resources to ensure safe disposition. Clinical Impression: 1) COPD exacerbation - pt having recurrent bouts of hypoxia to the mid-80s. Mild tachypnea. Though she overall feels improved. Dimer added, was negative. On walk of life became quite symptomatic. Will therefore admit for new oxygen requirement. I saw and evaluated the patient with IRIS. I provided a substantive portion of the care for this patient. I personally performed all aspects of the medical decision making for this encounter. I have reviewed and verified this with the IRIS so that it accurately reflects our care. Ced Tate MD 11/10/21 1136 [facility] Work Phone: 11-10-2021 Emergency department Note This patient was appropriately risk stratified for observation level of care and placed on an observation protocol in our Clinical Decision Unit. The patient's intensity of service and severity of illness was appropriately aligned with observation level of care. Medical Decision Making: Chin Whiting is a 61 y.o. female who presented with difficulty breathing. Work up in the emergency department revealed likely copd exacerbation. The pt was placed in observation for continued treatments overnight. Since placement in observation, pt feeling improved but having episodes of hypoxia. Physical Exam: VITAL SIGNS: BP 129/71 Pulse 103 Temp 97.6 F (36.4 C) (Oral) Resp 20 Ht 1.626 m (5' 4") SpO2 92% BMI 16.75 kg/m Smoking Status Current Every Day Smoker Gen: chronically ill appearing Respiratory: Mild tachypnea Normal breath sounds, No wheezing, no rales, No chest tenderness. Cardiovascular: Normal heart rate, Normal rhythm, No murmurs, No rubs, No gallops. GI: Soft, No tenderness, No masses, No pulsatile masses. Neuro: Grossly neurologically intact Disposition: Admit The patient has NOT met appropriate clinical criteria to be discharged from this CDU observation protocol. As such, the patient has failed to be discharged from observation level of care and will require inpatient admission to provide sufficient stabilization and resources to ensure safe disposition. Clinical Impression: 1) COPD exacerbation - pt having recurrent bouts of hypoxia to the mid-80s. Mild tachypnea. Though she overall feels improved. Dimer added, was negative. On walk of life became quite symptomatic. Will therefore admit for new oxygen requirement. I saw and evaluated the patient with IRIS. I provided a substantive portion of the care for this patient. I personally performed all aspects of the medical decision making for this encounter. I have reviewed and verified this with the IRIS so that it accurately reflects our care. Ced Tate MD 11/10/21 1136 ED ATTENDING NOTE Chief Complaint: Chest Pain and Shortness of Breath HPI: Chin Whiting is a 61 y.o. female with a past medical history significant for COPD not on home O2 who presents with shortness of breath, cough productive of clear sputum, and chest discomfort with coughing. Had COVID a few months ago and is vaccinated. Denies fever, chills, nausea, vomiting, diarrhea. Multiple possible sick contacts from grandchildren. ROS: See history of present illness for pertinent positive and negative review of systems. A 14 point review systems was reviewed and are negative except as indicated above. 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 HEENT: PERRLA, EOMI, no pharyngeal erythema, no tonsillar exudate. Neck: Normal inspection, no thyromegaly, no lymphadenopathy. Respiratory: No distress, wheezing. CVS: Tachy, regular, no murmurs, rubs, or gallops Abdomen: No focal tenderness to palpation. No guarding or rebound. Skin: Normal color, warm, dry, without rashes. Extremities: Non-tender, full ROM, no pedal edema. Neuro: Oriented x3, GCS of 15, no focal neurologic deficits. Psych: Mood and affect normal. EKG Interpretation: Interpreted by me as emergency department attending physician Rhythm: sinus tach Rate: 115 [place]: normal Ectopy: none ST Segments: non specific abnormalities T Waves: normal Q Waves: none Clinical Impression: Sinus tach, R atrial enlargement, no evidence of ischemia or R heart strain. Does not appear grossly changed from prior. Shine Ortiz MD ED Attending Physician [facility] at [facility] Results for orders placed or performed during the hospital encounter of 11/09/21 CHEM 7 (LYTES,BUN,CREA,GLUC) Result Value Ref Range Sodium 138 135 - 145 mmol/L Potassium 4.0 3.5 - 5.0 mmol/L Chloride 103 98 - 108 mmol/L CO2 29 21 - 31 mmol/L Glucose 154 (H) 70 - 99 mg/dL BUN 8 7 - 25 mg/dL Creatinine 0.85 0.50 - 1.20 mg/dL Bun/Crea Ratio 9 Osmolality (Calculated) 291 278 - 305 mOsm/kg Anion Gap 10 7 - 17 mmol/L eGFR, CKD-EPI, Female 78 >=60 mL/min/1.73m2 PHOSPHATE, INORGANIC Result Value Ref Range Phosphorous 3.4 2.2 - 4.6 mg/dL MAGNESIUM Result Value Ref Range Magnesium 2.0 1.6 - 2.6 mg/dL CALCIUM Result Value Ref Range Calcium 9.6 8.6 - 10.5 mg/dL HIGH SENSITIVITY TROPONIN I - SINGLE ORDER Result Value Ref Range hs-Troponin I 5 <34 ng/L B-TYPE NATRIURETIC PEPTIDE (BRAIN) Result Value Ref Range BNP 14 0 - 100 pg/mL CBC AND ELECTRONIC DIFF Result Value Ref Range WBC Count 8.35 3.99 - 11.19 K/uL RBC Count 4.82 3.91 - 5.04 M/uL Hemoglobin 15.1 11.4 - 15.2 g/dL Hematocrit 44.6 (H) 34.9 - 44.3 % Mean Cell Volume 92.5 79.6 - 97.7 fL Mean Cell Hgb 31.3 25.9 - 33.9 pg Mean Cell Hgb Conc 33.9 31.4 - 35.9 g/dL RBC Distribution 13.0 10.8 - 14.9 % Platelet Count 221 150 - 393 K/uL Mean Platelet Volume 10.5 8.5 - 12.2 fL DIFF STATUS Electronic Differential Segs + Bands Auto 46.3 % Immature Grans % 0.2 % Lymphocyte % Auto 37.1 % Monocyte % Auto 7.9 % Eosinophil % Auto 7.9 % Basophil % Auto 0.6 % Nucleated RBC 0.0 <=0.2 /100 WBC Segs + Bands,Absolute Auto 3.86 1.64 - 7.28 K/uL Immature Grans Absolute <0.04 <=0.09 K/uL Abs Lymph Auto 3.10 1.16 - 3.51 K/uL Abs Sunflower Auto 0.66 0.22 - 0.87 K/uL Abs Eos Auto 0.66 (H) 0.00 - 0.42 K/uL Abs Baso Auto 0.05 0.00 - 0.15 K/uL XR CHEST PA AND LATERAL Final Result IMPRESSION: No acute cardiopulmonary disease. Emphysema. I personally viewed and interpreted these images and I have reviewed and approved this report. COURSE, MEDICAL DECISION MAKING, PLAN OF CARE On 11/09/2021 I saw and personally examined the patient. I discussed the history and examination with the resident physician and agree with the plan of care. Differential Diagnosis/Clinical Impression: Patient presents with SOB, cough, and wheezing. She is very well appearing. She did have a de sat to high 80s with ambulation but now is 94% in 1-2L NC which is new for her. She states she is normally high 90s on room air. Her labs and XR are all normal. Was initially tachycardic so did consider PE but overall clinical picture more consistent with COPD exacerbation> Will give steroids, nebs, and place in CDU for continued management. Shine Ortiz MD ED Attending Physician [facility] Shine Ortiz MD 11/09/214 PMH of COPD. C/o SOB and CP x 6 days. Associated s/s: Tachycardic. CHIEF COMPLAINT: Chief Complaint Patient presents with Chest Pain Shortness of Breath Brief History and plan for triage: Chin Whiting is a 61 y.o. female who has a past medical history of Adenoid hypertrophy (05/2010), Back pain, Cardiac angina, Chondrosarcoma nos (1999), Chronic obstructive pulmonary disease (COPD), COVID-19 (05/2021), Depression, Heel fracture (03/21/2014), Lung nodule, Migraines, Neck pain, Pneumonia (2001), and Whooping cough. She has no past medical history of Exposure to hazardous chemical or History of radiation exposure. with left sided chest pain and cough. Symptoms since . ROS: no leg swelling, history of COPD Ht 1.626 m (5' 4") BMI 16.75 kg/m Smoking Status Current Every Day Smoker Breath sounds distant with left sided wheezing, cor - RR, no tachycardia No peripheral edema This patient presented to the Arrival Zone. I reviewed the patient's past medical history and medication list. I saw and examined the patient today. Labs and CXR were ordered appropriate to the triage complaint. EKG Interpretation Interpreted by emergency department physician Rhythm: normal sinus Rate: 115 [place]: normal Ectopy: none Conduction: normal ST Segments: non-specific changes T Waves: normal Q Waves: none Clinical Impression: sinus tachycardia MD Juan Goode MD 11/09/21 1646 documented in this encounter [facility] 11-10-2021 Emergency department Note This patient was appropriately risk stratified for observation level of care and placed on an observation protocol in our Clinical Decision Unit. The patient's intensity of service and severity of illness was appropriately aligned with observation level of care. Medical Decision Making: Chin Whiting is a 61 y.o. female who presented with difficulty breathing. Work up in the emergency department revealed likely copd exacerbation. The pt was placed in observation for continued treatments overnight. Since placement in observation, pt feeling improved but having episodes of hypoxia. Physical Exam: VITAL SIGNS: BP 129/71 Pulse 103 Temp 97.6 F (36.4 C) (Oral) Resp 20 Ht 1.626 m (5' 4") SpO2 92% BMI 16.75 kg/m Smoking Status Current Every Day Smoker Gen: chronically ill appearing Respiratory: Mild tachypnea Normal breath sounds, No wheezing, no rales, No chest tenderness. Cardiovascular: Normal heart rate, Normal rhythm, No murmurs, No rubs, No gallops. GI: Soft, No tenderness, No masses, No pulsatile masses. Neuro: Grossly neurologically intact Disposition: Admit The patient has NOT met appropriate clinical criteria to be discharged from this CDU observation protocol. As such, the patient has failed to be discharged from observation level of care and will require inpatient admission to provide sufficient stabilization and resources to ensure safe disposition. Clinical Impression: 1) COPD exacerbation - pt having recurrent bouts of hypoxia to the mid-80s. Mild tachypnea. Though she overall feels improved. Dimer added, was negative. On walk of life became quite symptomatic. Will therefore admit for new oxygen requirement. I saw and evaluated the patient with IRIS. I provided a substantive portion of the care for this patient. I personally performed all aspects of the medical decision making for this encounter. I have reviewed and verified this with the IRIS so that it accurately reflects our care. Ced Tate MD 11/10/21 1136 ED ATTENDING NOTE Chief Complaint: Chest Pain and Shortness of Breath HPI: Chin Whiting is a 61 y.o. female with a past medical history significant for COPD not on home O2 who presents with shortness of breath, cough productive of clear sputum, and chest discomfort with coughing. Had COVID a few months ago and is vaccinated. Denies fever, chills, nausea, vomiting, diarrhea. Multiple possible sick contacts from grandchildren. ROS: See history of present illness for pertinent positive and negative review of systems. A 14 point review systems was reviewed and are negative except as indicated above. 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 HEENT: PERRLA, EOMI, no pharyngeal erythema, no tonsillar exudate. Neck: Normal inspection, no thyromegaly, no lymphadenopathy. Respiratory: No distress, wheezing. CVS: Tachy, regular, no murmurs, rubs, or gallops Abdomen: No focal tenderness to palpation. No guarding or rebound. Skin: Normal color, warm, dry, without rashes. Extremities: Non-tender, full ROM, no pedal edema. Neuro: Oriented x3, GCS of 15, no focal neurologic deficits. Psych: Mood and affect normal. EKG Interpretation: Interpreted by me as emergency department attending physician Rhythm: sinus tach Rate: 115 [place]: normal Ectopy: none ST Segments: non specific abnormalities T Waves: normal Q Waves: none Clinical Impression: Sinus tach, R atrial enlargement, no evidence of ischemia or R heart strain. Does not appear grossly changed from prior. Shine Ortiz MD ED Attending Physician [facility] at [facility] Results for orders placed or performed during the hospital encounter of 11/09/21 CHEM 7 (LYTES,BUN,CREA,GLUC) Result Value Ref Range Sodium 138 135 - 145 mmol/L Potassium 4.0 3.5 - 5.0 mmol/L Chloride 103 98 - 108 mmol/L CO2 29 21 - 31 mmol/L Glucose 154 (H) 70 - 99 mg/dL BUN 8 7 - 25 mg/dL Creatinine 0.85 0.50 - 1.20 mg/dL Bun/Crea Ratio 9 Osmolality (Calculated) 291 278 - 305 mOsm/kg Anion Gap 10 7 - 17 mmol/L eGFR, CKD-EPI, Female 78 >=60 mL/min/1.73m2 PHOSPHATE, INORGANIC Result Value Ref Range Phosphorous 3.4 2.2 - 4.6 mg/dL MAGNESIUM Result Value Ref Range Magnesium 2.0 1.6 - 2.6 mg/dL CALCIUM Result Value Ref Range Calcium 9.6 8.6 - 10.5 mg/dL HIGH SENSITIVITY TROPONIN I - SINGLE ORDER Result Value Ref Range hs-Troponin I 5 <34 ng/L B-TYPE NATRIURETIC PEPTIDE (BRAIN) Result Value Ref Range BNP 14 0 - 100 pg/mL CBC AND ELECTRONIC DIFF Result Value Ref Range WBC Count 8.35 3.99 - 11.19 K/uL RBC Count 4.82 3.91 - 5.04 M/uL Hemoglobin 15.1 11.4 - 15.2 g/dL Hematocrit 44.6 (H) 34.9 - 44.3 % Mean Cell Volume 92.5 79.6 - 97.7 fL Mean Cell Hgb 31.3 25.9 - 33.9 pg Mean Cell Hgb Conc 33.9 31.4 - 35.9 g/dL RBC Distribution 13.0 10.8 - 14.9 % Platelet Count 221 150 - 393 K/uL Mean Platelet Volume 10.5 8.5 - 12.2 fL DIFF STATUS Electronic Differential Segs + Bands Auto 46.3 % Immature Grans % 0.2 % Lymphocyte % Auto 37.1 % Monocyte % Auto 7.9 % Eosinophil % Auto 7.9 % Basophil % Auto 0.6 % Nucleated RBC 0.0 <=0.2 /100 WBC Segs + Bands,Absolute Auto 3.86 1.64 - 7.28 K/uL Immature Grans Absolute <0.04 <=0.09 K/uL Abs Lymph Auto 3.10 1.16 - 3.51 K/uL Abs Sunflower Auto 0.66 0.22 - 0.87 K/uL Abs Eos Auto 0.66 (H) 0.00 - 0.42 K/uL Abs Baso Auto 0.05 0.00 - 0.15 K/uL XR CHEST PA AND LATERAL Final Result IMPRESSION: No acute cardiopulmonary disease. Emphysema. I personally viewed and interpreted these images and I have reviewed and approved this report. COURSE, MEDICAL DECISION MAKING, PLAN OF CARE On 11/09/2021 I saw and personally examined the patient. I discussed the history and examination with the resident physician and agree with the plan of care. Differential Diagnosis/Clinical Impression: Patient presents with SOB, cough, and wheezing. She is very well appearing. She did have a de sat to high 80s with ambulation but now is 94% in 1-2L NC which is new for her. She states she is normally high 90s on room air. Her labs and XR are all normal. Was initially tachycardic so did consider PE but overall clinical picture more consistent with COPD exacerbation> Will give steroids, nebs, and place in CDU for continued management. Shine Ortiz MD ED Attending Physician [facility] Shine Ortiz MD 11/09/212236 PMH of COPD. C/o SOB and CP x 6 days. Associated s/s: Tachycardic. CHIEF COMPLAINT: Chief Complaint Patient presents with Chest Pain Shortness of Breath Brief History and plan for triage: Chin Whiting is a 61 y.o. female who has a past medical history of Adenoid hypertrophy (05/2010), Back pain, Cardiac angina, Chondrosarcoma nos (1999), Chronic obstructive pulmonary disease (COPD), COVID-19 (05/2021), Depression, Heel fracture (03/21/2014), Lung nodule, Migraines, Neck pain, Pneumonia (2001), and Whooping cough. She has no past medical history of Exposure to hazardous chemical or History of radiation exposure. with left sided chest pain and cough. Symptoms since . ROS: no leg swelling, history of COPD Ht 1.626 m (5' 4") BMI 16.75 kg/m Smoking Status Current Every Day Smoker Breath sounds distant with left sided wheezing, cor - RR, no tachycardia No peripheral edema This patient presented to the Arrival Zone. I reviewed the patient's past medical history and medication list. I saw and examined the patient today. Labs and CXR were ordered appropriate to the triage complaint. EKG Interpretation Interpreted by emergency department physician Rhythm: normal sinus Rate: 115 [place]: normal Ectopy: none Conduction: normal ST Segments: non-specific changes T Waves: normal Q Waves: none Clinical Impression: sinus tachycardia MD Juan Goode MD 11/09/21 [id number] documented in this encounter [facility] 11-10-2021 History and physical note Hospital Medicine Admission History & Physical Patient: Chin Whiting, 1960, [id number] Physician: Mary Ann Carmichael, Attending Physician,6 service Date of face to face patient encounter: 11/10/2021 IMPRESSION/PLAN Chin Whiting is a 61 y.o. female with a PMHx of COPD and Tobacco Use who presents with Shortness of Breath. COPD Exacerbation: Known history of COPD. Not on O2 at home. Smokes at home - COVID pending - Prednisone 40 mg x 5 - Doxycycline x 5 days (azithromycin allergy) - Scheduled Duonebs; Tiotropium - Maintain SpO2 > 88% - Will need repeat WOL test prior to discharge to see if needs home O2 - Referral placed for pulmonary rehabilitation Tobacco Use: Cessation counseled Depression: No meds DVT prophylaxis with LOS < 48 hours Code status is Full Disposition: Observation CHIEF COMPLAINT Shortness of Breath HISTORY OF PRESENT ILLNESS Chin Whiting is a 61 y.o. female who is admitted to [facility] Presenting with several days of increasing shortness of breath. Reporting shortness of breath at rest but mostly with exertion/walking. She also reports a cough productive of clear sputum but states that this is her baseline. She was using her rescue inhalers regularly at home without significant improvement. She continues to smoke and states it varies day to day. Denies any chest pain. States she was around her grandchild last week who had some respiratory issues though he tested negative for COVID. She was admitted to CDU but later admitted after she desatted to 87% on her walk of life test. 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 Chronic obstructive pulmonary disease (COPD) COVID-19 05/2021 Depression Heel fracture 03/21/2014 right heel Lung nodule s/p open lung biopsy, path benign Migraines Neck pain s/p cervical steroid injection Pneumonia 2002 Whooping cough Past Surgical History: Procedure Laterality Date COMPLETE EXTRACTION OF TEETH 08/26/2018 COLONOSCOPY DIAGNOSTIC N/A 05/03/2018 Laterality: N/A; Surgeon: Steven Gardner MD; Location: [facility] COLONOSCOPY FOR COLORECTAL CANCER SCREENING HIGH RISK INDIVIDUAL N/A 05/02/2018 Laterality: N/A; Surgeon: Rohit Rojas MD; Location: [facility] LUNG BIOPSY 03/24 for lung nodule AMPUTATION FINGER OR HAND 2007 L 5th digit; chondrosarcoma HYSTERECTOMY, TOTAL ABDOMINAL 1997 ARM SURGERY 1995 fracture TONSILLECTOMY 1975 HYSTERECTOMY ~1995 OOPHORECTOMY Bilateral ~1995 SOCIAL HISTORY Social History Tobacco Use Smoking status: Current Every Day Smoker Packs/day: 0.33 Years: 30.00 Pack years: 9.90 Types: Cigarettes Smokeless tobacco: Never Used Tobacco comment: quit on 08/24/2018 Substance Use Topics Alcohol use: No Comment: rare Social History Substance and Sexual Activity Drug Use Yes Types: Marijuana Comment: 3-4 x a week FAMILY HISTORY family history includes Aneurysm in her brother; Bleeding or Clotting Problems in her son; Cancer- Other in her paternal uncle; Diabetes in her mother and paternal grandfather; Heart Failure in her son; Hemachromatosis in her father; Hypertension in her mother; Other - Specify in her cousin, father, mother, paternal grandmother, sister, son, and son. MEDICATIONS Prior to Admission Medications Prescriptions Last Dose Informant Patient Reported? Taking? Calcium Carbonate-Vitamin D3 600-400 MG-UNIT tablet Yes No Sig: Take 1 tablet by mouth 2 times daily with meals. DISABILITY PLACARD No No Sig: Disability placard end date 09/28/2022 Dextromethorphan-Pyrilamine ([place] DMT) 30-30 MG tablet No No Sig: Take 1 tablet by mouth 2 times daily as needed. Ventolin HFA 108 (90 Base) MCG/ACT Aero Soln inhaler No No Sig: INHALE 2 PUFFS BY MOUTH EVERY 6 HOURS NEEDED FOR SHORTNESS OF BREATH, COUGH OR WHEEZING calcium carbonate-vitamin D 600mg-400units 600-400 MG-UNIT tablet No No Sig: Take 1 tablet by mouth 2 times daily with meals. fluticasone 50 MCG/ACT Suspension nasal spray No No Si spray by Nasal route daily. ipratropium-albuterol 0.5-2.5 (3) MG/3ML nebulizer solution No No Sig: Take 3 mL by nebulization every 6 hours as needed for Wheezing, Shortness of Breath or Breathing Treatment. loratadine (Claritin) 10 MG tablet No No Sig: Take 1 tablet by mouth daily. tiotropium (Spiriva Respimat) 2.5 MCG/ACT Aero Soln inhaler No No Sig: Inhale one puff every day Facility-Administered Medications: None ALLERGIES Allergies Allergen Reactions Azithromycin Anaphylaxis Other reaction(s): Anaphylaxis, AOF REVIEW OF SYSTEMS Constitutional (- fever, chills, weight changes) Eyes (negative for vision changes) ENT (- ringing, loss of hearing) Cardiovascular (no LE edema or leg pain with walking, denies PND, orthopnea) Respiratory Shortness of Breath, Cough Gastrointestinal (no abd pain, constipation, diarrhea) Genitourinary (- dysuria, gross hematuria) Integumentary (no rash) Musculoskeletal (no joint deformity, joint pains) Psych: no depressed mood PHYSICAL EXAM Vitals: 11/10/21 1017 BP: 129/71 Pulse: 112 Resp: 20 Temp: 97.6 F (36.4 C) O2 Device: room air (11/10/21 1017) Flow (L/min): 1 (pt changed RA) (11/10/21 0911) Gen: Alert, Awake, NAD Eyes: PERRLA, EOMI, no icterus ENT: MMM, trachea midline Resp: Faint expiratory wheezes, decreased breath sounds Cardio: RRR, normal S1, S2, no M/R/G. No CASEY. GI: S/NT/ND, NABS MS: No joint effusions or erythema: Skin: No jaundice or rash Neuro: inspecting and testing lead hand 3-7, 9-11 intact and equal. Strength grossly equal in muscle groups of the bilateral UEs and LEs. Psych: Alert, Ox3, appropriate affect and cognition DATA REVIEW WBC/Hgb/Hct/Plts: 8.35/15.1/44.6/221 (11/09 1642) Na/K+/Phos/Mg/Ca: 138/4.0/3.4/2.0/9.6 (11/09 1642) Bun/Creat/Cl/CO2/Glucose: 8/0.85/103/29/154 (11/09 1642) Body mass index is 16.75 kg/m . Additional Labs: Labs in chart reviewed Imaging: Pertinent imaging reviewed ECG Personally reviewed Signed, Mary Ann Carmichael Anime Artist Clinical Professor Division of [facility] Medicine [facility] 11-10-2021 History and physical note Hospital Medicine Admission History & Physical Patient: Chin Whiting, 1960, [id number] Physician: Mary Ann Carmichael, Attending Physician,6 service Date of face to face patient encounter: 11/10/2021 IMPRESSION/PLAN Chin Whiting is a 61 y.o. female with a PMHx of COPD and Tobacco Use who presents with Shortness of Breath. COPD Exacerbation: Known history of COPD. Not on O2 at home. Smokes at home - COVID pending - Prednisone 40 mg x 5 - Doxycycline x 5 days (azithromycin allergy) - Scheduled Duonebs; Tiotropium - Maintain SpO2 > 88% - Will need repeat WOL test prior to discharge to see if needs home O2 - Referral placed for pulmonary rehabilitation Tobacco Use: Cessation counseled Depression: No meds DVT prophylaxis with LOS < 48 hours Code status is Full Disposition: Observation CHIEF COMPLAINT Shortness of Breath HISTORY OF PRESENT ILLNESS Chin Whiting is a 61 y.o. female who is admitted to [facility] Presenting with several days of increasing shortness of breath. Reporting shortness of breath at rest but mostly with exertion/walking. She also reports a cough productive of clear sputum but states that this is her baseline. She was using her rescue inhalers regularly at home without significant improvement. She continues to smoke and states it varies day to day. Denies any chest pain. States she was around her grandchild last week who had some respiratory issues though he tested negative for COVID. She was admitted to CDU but later admitted after she desatted to 87% on her walk of life test. 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 Chronic obstructive pulmonary disease (COPD) COVID-19 05/2021 Depression Heel fracture 03/21/2014 right heel Lung nodule s/p open lung biopsy, path benign Migraines Neck pain s/p cervical steroid injection Pneumonia 2002 Whooping cough Past Surgical History: Procedure Laterality Date COMPLETE EXTRACTION OF TEETH 08/26/2018 COLONOSCOPY DIAGNOSTIC N/A 05/03/2018 Laterality: N/A; Surgeon: Steven Gardner MD; Location: [facility] [place] COLONOSCOPY FOR COLORECTAL CANCER SCREENING HIGH RISK INDIVIDUAL N/A 05/02/2018 Laterality: N/A; Surgeon: Rohit Rojas MD; Location: [facility]OSCOPY [place] LUNG BIOPSY 03/24 for lung nodule AMPUTATION FINGER OR HAND 2007 L 5th digit; chondrosarcoma HYSTERECTOMY, TOTAL ABDOMINAL 1996 ARM SURGERY 1995 fracture TONSILLECTOMY 1975 HYSTERECTOMY ~1995 OOPHORECTOMY Bilateral ~1995 SOCIAL HISTORY Social History Tobacco Use Smoking status: Current Every Day Smoker Packs/day: 0.33 Years: 30.00 Pack years: 9.90 Types: Cigarettes Smokeless tobacco: Never Used Tobacco comment: quit on 08/24/2018 Substance Use Topics Alcohol use: No Comment: rare Social History Substance and Sexual Activity Drug Use Yes Types: Marijuana Comment: 3-4 x a week FAMILY HISTORY family history includes Aneurysm in her brother; Bleeding or Clotting Problems in her son; Cancer- Other in her paternal uncle; Diabetes in her mother and paternal grandfather; Heart Failure in her son; Hemachromatosis in her father; Hypertension in her mother; Other - Specify in her cousin, father, mother, paternal grandmother, sister, son, and son. MEDICATIONS Prior to Admission Medications Prescriptions Last Dose Informant Patient Reported? Taking? Calcium Carbonate-Vitamin D3 600-400 MG-UNIT tablet Yes No Sig: Take 1 tablet by mouth 2 times daily with meals. DISABILITY PLACARD No No Sig: Disability placard end date 09/28/2022 Dextromethorphan-Pyrilamine (Kirkwood DMT) 30-30 MG tablet No No Sig: Take 1 tablet by mouth 2 times daily as needed. Ventolin HFA 108 (90 Base) MCG/ACT Aero Soln inhaler No No Sig: INHALE 2 PUFFS BY MOUTH EVERY 6 HOURS NEEDED FOR SHORTNESS OF BREATH, COUGH OR WHEEZING calcium carbonate-vitamin D 600mg-400units 600-400 MG-UNIT tablet No No Sig: Take 1 tablet by mouth 2 times daily with meals. fluticasone 50 MCG/ACT Suspension nasal spray No No Si spray by Nasal route daily. ipratropium-albuterol 0.5-2.5 (3) MG/3ML nebulizer solution No No Sig: Take 3 mL by nebulization every 6 hours as needed for Wheezing, Shortness of Breath or Breathing Treatment. loratadine (Claritin) 10 MG tablet No No Sig: Take 1 tablet by mouth daily. tiotropium (Spiriva Respimat) 2.5 MCG/ACT Aero Soln inhaler No No Sig: Inhale one puff every day Facility-Administered Medications: None ALLERGIES Allergies Allergen Reactions Azithromycin Anaphylaxis Other reaction(s): Anaphylaxis, AOF REVIEW OF SYSTEMS Constitutional (- fever, chills, weight changes) Eyes (negative for vision changes) ENT (- ringing, loss of hearing) Cardiovascular (no LE edema or leg pain with walking, denies PND, orthopnea) Respiratory Shortness of Breath, Cough Gastrointestinal (no abd pain, constipation, diarrhea) Genitourinary (- dysuria, gross hematuria) Integumentary (no rash) Musculoskeletal (no joint deformity, joint pains) Psych: no depressed mood PHYSICAL EXAM Vitals: 11/10/21 1017 BP: 129/71 Pulse: 112 Resp: 20 Temp: 97.6 F (36.4 C) O2 Device: room air (11/10/21 1017) Flow (L/min): 1 (pt changed RA) (11/10/21 0911) Gen: Alert, Awake, NAD Eyes: PERRLA, EOMI, no icterus ENT: MMM, trachea midline Resp: Faint expiratory wheezes, decreased breath sounds Cardio: RRR, normal S1, S2, no M/R/G. No CASEY. GI: S/NT/ND, NABS MS: No joint effusions or erythema: Skin: No jaundice or rash Neuro: inspecting and testing lead hand 3-7, 9-11 intact and equal. Strength grossly equal in muscle groups of the bilateral UEs and LEs. Psych: Alert, Ox3, appropriate affect and cognition DATA REVIEW WBC/Hgb/Hct/Plts: 8.35/15.1/44.6/221 (11/09 1642) Na/K+/Phos/Mg/Ca: 138/4.0/3.4/2.0/9.6 (11/09 1642) Bun/Creat/Cl/CO2/Glucose: 8/0.85/103/29/154 (11/09 1642) Body mass index is 16.75 kg/m . Additional Labs: Labs in chart reviewed Imaging: Pertinent imaging reviewed ECG Personally reviewed SignedMary Ann Anime Artist Clinical Professor Division of Hospital Medicine documented in this encounter [facility] 11-10-2021 History and physical note Hospital Medicine Admission History & Physical Patient: Chin Whiting, 1960, [id number] Physician: Mary Ann Carmichael, Attending Physician,6 service Date of face to face patient encounter: 11/10/2021 IMPRESSION/PLAN Chin Whiting is a 61 y.o. female with a PMHx of COPD and Tobacco Use who presents with Shortness of Breath. COPD Exacerbation: Known history of COPD. Not on O2 at home. Smokes at home - COVID pending - Prednisone 40 mg x 5 - Doxycycline x 5 days (azithromycin allergy) - Scheduled Duonebs; Tiotropium - Maintain SpO2 > 88% - Will need repeat WOL test prior to discharge to see if needs home O2 - Referral placed for pulmonary rehabilitation Tobacco Use: Cessation counseled Depression: No meds DVT prophylaxis with LOS < 48 hours Code status is Full Disposition: Observation CHIEF COMPLAINT Shortness of Breath HISTORY OF PRESENT ILLNESS Chin Whiting is a 61 y.o. female who is admitted to [facility] Presenting with several days of increasing shortness of breath. Reporting shortness of breath at rest but mostly with exertion/walking. She also reports a cough productive of clear sputum but states that this is her baseline. She was using her rescue inhalers regularly at home without significant improvement. She continues to smoke and states it varies day to day. Denies any chest pain. States she was around her grandchild last week who had some respiratory issues though he tested negative for COVID. She was admitted to CDU but later admitted after she desatted to 87% on her walk of life test. 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 Chronic obstructive pulmonary disease (COPD) COVID-19 05/2021 Depression Heel fracture 03/21/2014 right heel Lung nodule s/p open lung biopsy, path benign Migraines Neck pain s/p cervical steroid injection Pneumonia 2002 Whooping cough Past Surgical History: Procedure Laterality Date COMPLETE EXTRACTION OF TEETH 08/26/2018 COLONOSCOPY DIAGNOSTIC N/A 05/03/2018 Laterality: N/A; Surgeon: Steven Gardner MD; Location: [facility]OS[facility] [place] COLONOSCOPY FOR COLORECTAL CANCER SCREENING HIGH RISK INDIVIDUAL N/A 05/02/2018 Laterality: N/A; Surgeon: Rohit Rojas MD; Location: [facility] ENDOSCOPY [place] L[facility]G BI[facility]SY 03/24 for lung nodule AMPUTATION FINGER OR HAND 2007 L 5th digit; chondrosarcoma HYSTERECTOMY, TOTAL ABDOMINAL 1996 ARM SURGERY 1995 fracture TONSILLECTOMY 1975 HYSTERECTOMY ~1995 OOPHORECTOMY Bilateral ~1995 SOCIAL HISTORY Social History Tobacco Use Smoking status: Current Every Day Smoker Packs/day: 0.33 Years: 30.00 Pack years: 9.90 Types: Cigarettes Smokeless tobacco: Never Used Tobacco comment: quit on 08/24/2018 Substance Use Topics Alcohol use: No Comment: rare Social History Substance and Sexual Activity Drug Use Yes Types: Marijuana Comment: 3-4 x a week FAMILY HISTORY family history includes Aneurysm in her brother; Bleeding or Clotting Problems in her son; Cancer- Other in her paternal uncle; Diabetes in her mother and paternal grandfather; Heart Failure in her son; Hemachromatosis in her father; Hypertension in her mother; Other - Specify in her cousin, father, mother, paternal grandmother, sister, son, and son. MEDICATIONS Prior to Admission Medications Prescriptions Last Dose Informant Patient Reported? Taking? Calcium Carbonate-Vitamin D3 600-400 MG-UNIT tablet Yes No Sig: Take 1 tablet by mouth 2 times daily with meals. DISABILITY PLACARD No No Sig: Disability placard end date 09/28/2022 Dextromethorphan-Pyrilamine (Kirkwood DMT) 30-30 MG tablet No No Sig: Take 1 tablet by mouth 2 times daily as needed. Ventolin HFA 108 (90 Base) MCG/ACT Aero Soln inhaler No No Sig: INHALE 2 PUFFS BY MOUTH EVERY 6 HOURS NEEDED FOR SHORTNESS OF BREATH, COUGH OR WHEEZING calcium carbonate-vitamin D 600mg-400units 600-400 MG-UNIT tablet No No Sig: Take 1 tablet by mouth 2 times daily with meals. fluticasone 50 MCG/ACT Suspension nasal spray No No Si spray by Nasal route daily. ipratropium-albuterol 0.5-2.5 (3) MG/3ML nebulizer solution No No Sig: Take 3 mL by nebulization every 6 hours as needed for Wheezing, Shortness of Breath or Breathing Treatment. loratadine (Claritin) 10 MG tablet No No Sig: Take 1 tablet by mouth daily. tiotropium (Spiriva Respimat) 2.5 MCG/ACT Aero Soln inhaler No No Sig: Inhale one puff every day Facility-Administered Medications: None ALLERGIES Allergies Allergen Reactions Azithromycin Anaphylaxis Other reaction(s): Anaphylaxis, AOF REVIEW OF SYSTEMS Constitutional (- fever, chills, weight changes) Eyes (negative for vision changes) ENT (- ringing, loss of hearing) Cardiovascular (no LE edema or leg pain with walking, denies PND, orthopnea) Respiratory Shortness of Breath, Cough Gastrointestinal (no abd pain, constipation, diarrhea) Genitourinary (- dysuria, gross hematuria) Integumentary (no rash) Musculoskeletal (no joint deformity, joint pains) Psych: no depressed mood PHYSICAL EXAM Vitals: 11/10/21 1017 BP: 129/71 Pulse: 112 Resp: 20 Temp: 97.6 F (36.4 C) O2 Device: room air (11/10/21 1017) Flow (L/min): 1 (pt changed RA) (11/10/21 0911) Gen: Alert, Awake, NAD Eyes: PERRLA, EOMI, no icterus ENT: MMM, trachea midline Resp: Faint expiratory wheezes, decreased breath sounds Cardio: RRR, normal S1, S2, no M/R/G. No CASEY. GI: S/NT/ND, NABS MS: No joint effusions or erythema: Skin: No jaundice or rash Neuro: inspecting and testing lead hand 3-7, 9-11 intact and equal. Strength grossly equal in muscle groups of the bilateral UEs and LEs. Psych: Alert, Ox3, appropriate affect and cognition DATA REVIEW WBC/Hgb/Hct/Plts: 8.35/15.1/44.6/221 (11/09 1642) Na/K+/Phos/Mg/Ca: 138/4.0/3.4/2.0/9.6 (11/09 1642) Bun/Creat/Cl/CO2/Glucose: 8/0.85/103/29/154 (11/09 1642) Body mass index is 16.75 kg/m . Additional Labs: Labs in chart reviewed Imaging: Pertinent imaging reviewed ECG Personally reviewed Signed, Mary Ann Carmichael Anime Artist Clinical Professor Division of Hospital Medicine documented in this encounter [facility] 11-10-2021 Note Formatting of this n ote is different from the original. Chin Whiting is a 61 y.o. 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 Chronic obstructive pulmonary disease (COPD) COVID-19 05/2021 Depression Heel fracture 03/21/2014 right heel Lung nodule s/p open lung biopsy, path benign Migraines Neck pain s/p cervical steroid injection Pneumonia 2001 Whooping cough Past Surgical History: Procedure Laterality Date COMPLETE EXTRACTION OF TEETH 08/26/2018 COLONOSCOPY DIAGNOSTIC N/A 05/03/2018 Laterality: N/A; Surgeon: Steven Gardner MD; Location: [facility]OSCOPY [place] COLONOSCOPY FOR COLORECTAL CANCER SCREENING HIGH RISK INDIVIDUAL N/A 05/02/2018 Laterality: N/A; Surgeon: Rohit Rojas MD; Location: [facility] ENDOSCOPY [place]G BI[facility]SY 03/24 for lung nodule AMPUTATION FINGER OR HAND 2008 L 5th digit; chondrosarcoma HYSTERECTOMY, TOTAL ABDOMINAL 1996 ARM SURGERY 1995 fracture TONSILLECTOMY 1975 HYSTERECTOMY ~1995 OOPHORECTOMY Bilateral ~1995 Social History Tobacco Use Smoking status: Current Every Day Smoker Packs/day: 0.33 Years: 30.00 Pack years: 9.90 Types: Cigarettes Smokeless tobacco: Never Used Tobacco comment: quit on 08/24/2018 Substance Use Topics Alcohol use: No Comment: rare No Order No active isolations Recent Vitals: Blood pressure 138/90, pulse 93, temperature 97.5 F (36.4 C), temperature source Oral, resp. rate 16, height 1.626 m (5' 4"), SpO2 95 %, not currently . Recent ABG/VBG: Home Medications: Prior to Admission Medications Prescriptions Last Dose Informant Patient Reported? Taking? Calcium Carbonate-Vitamin D3 600-400 MG-UNIT tablet Yes No Sig: Take 1 tablet by mouth 2 times daily with meals. DISABILITY PLACARD No No Sig: Disability placard end date 09/28/2022 Dextromethorphan-Pyrilamine (Kirkwood DMT) 30-30 MG tablet No No Sig: Take 1 tablet by mouth 2 times daily as needed. Ventolin HFA 108 (90 Base) MCG/ACT Aero Soln inhaler No No Sig: INHALE 2 PUFFS BY MOUTH EVERY 6 HOURS NEEDED FOR SHORTNESS OF BREATH, COUGH OR WHEEZING calcium carbonate-vitamin D 600mg-400units 600-400 MG-UNIT tablet No No Sig: Take 1 tablet by mouth 2 times daily with meals. fluticasone 50 MCG/ACT Suspension nasal spray No No Si spray by Nasal route daily. ipratropium-albuterol 0.5-2.5 (3) MG/3ML nebulizer solution No No Sig: Take 3 mL by nebulization every 6 hours as needed for Wheezing, Shortness of Breath or Breathing Treatment. loratadine (Claritin) 10 MG tablet No No Sig: Take 1 tablet by mouth daily. tiotropium (Spiriva Respimat) 2.5 MCG/ACT Aero Soln inhaler No No Sig: Inhale one puff every day Facility-Administered Medications: None Breath Sounds: Diminished, expiratory wheezing Current Orders: Duo Q6 Spiriva Tx Indication: COPD Home tx Respiratory Plan of Care: Continue treatments as ordered. Patient reports taking duoneb treatments Q6 at home. Deep breathing and coughing encouraged with patient. Will continue to monitor. The patients respiratory plan of care was updated by Komal Valencia RCP 11/10/2021 12:[address] [facility] 11-10-2021 Note Formatting of this n ote is different from the original. Chin Whiting is a 61 y.o. 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 Chronic obstructive pulmonary disease (COPD) COVID-19 05/2021 Depression Heel fracture 03/21/2014 right heel Lung nodule s/p open lung biopsy, path benign Migraines Neck pain s/p cervical steroid injection Pneumonia 2002 Whooping cough Past Surgical History: Procedure Laterality Date COMPLETE EXTRACTION OF TEETH 08/26/2018 COLONOSCOPY DIAGNOSTIC N/A 05/03/2018 Laterality: N/A; Surgeon: Steven Gardner MD; Location: [facility]OSCOPY [place] COLONOSCOPY FOR COLORECTAL CANCER SCREENING HIGH RISK INDIVIDUAL N/A 05/02/2018 Laterality: N/A; Surgeon: Rohit Rojas MD; Location: [facility]OS[facility] [place] BI[facility]SY 03/24 for lung nodule AMPUTATION FINGER OR HAND 2007 L 5th digit; chondrosarcoma HYSTERECTOMY, TOTAL ABDOMINAL 1996 ARM SURGERY 1995 fracture TONSILLECTOMY 1975 HYSTERECTOMY ~1995 OOPHORECTOMY Bilateral ~1995 Social History Tobacco Use Smoking status: Current Every Day Smoker Packs/day: 0.33 Years: 30.00 Pack years: 9.90 Types: Cigarettes Smokeless tobacco: Never Used Tobacco comment: quit on 08/24/2018 Substance Use Topics Alcohol use: No Comment: rare No Order No active isolations Recent Vitals: Blood pressure 138/90, pulse 93, temperature 97.5 F (36.4 C), temperature source Oral, resp. rate 16, height 1.626 m (5' 4"), SpO2 95 %, not currently . Recent ABG/VBG: Home Medications: Prior to Admission Medications Prescriptions Last Dose Informant Patient Reported? Taking? Calcium Carbonate-Vitamin D3 600-400 MG-UNIT tablet Yes No Sig: Take 1 tablet by mouth 2 times daily with meals. DISABILITY PLACARD No No Sig: Disability placard end date 09/28/2022 Dextromethorphan-Pyrilamine (Kirkwood DMT) 30-30 MG tablet No No Sig: Take 1 tablet by mouth 2 times daily as needed. Ventolin HFA 108 (90 Base) MCG/ACT Aero Soln inhaler No No Sig: INHALE 2 PUFFS BY MOUTH EVERY 6 HOURS NEEDED FOR SHORTNESS OF BREATH, COUGH OR WHEEZING calcium carbonate-vitamin D 600mg-400units 600-400 MG-UNIT tablet No No Sig: Take 1 tablet by mouth 2 times daily with meals. fluticasone 50 MCG/ACT Suspension nasal spray No No Si spray by Nasal route daily. ipratropium-albuterol 0.5-2.5 (3) MG/3ML nebulizer solution No No Sig: Take 3 mL by nebulization every 6 hours as needed for Wheezing, Shortness of Breath or Breathing Treatment. loratadine (Claritin) 10 MG tablet No No Sig: Take 1 tablet by mouth daily. tiotropium (Spiriva Respimat) 2.5 MCG/ACT Aero Soln inhaler No No Sig: Inhale one puff every day Facility-Administered Medications: None Breath Sounds: Diminished, expiratory wheezing Current Orders: Duo Q6 Spiriva Tx Indication: COPD Home tx Respiratory Plan of Care: Continue treatments as ordered. Patient reports taking duoneb treatments Q6 at home. Deep breathing and coughing encouraged with patient. Will continue to monitor. The patients respiratory plan of care was updated by Komal Valencia RCP 11/10/2021 12:[address] [facility] 11-09-2021 Note Formatting of this n ote is different from the original. DEPARTMENT OF EMERGENCY MEDICINE CHIEF COMPLAINT Chief Complaint Patient presents with Chest Pain Shortness of Breath HISTORY OF PRESENT ILLNESS Chin Whiting is a 61 y.o. female was appropriately risk stratified for observation level of care and was placed on the [facility] Asthma protocol. Symptoms started with PMH adenoid hypertrophy, back pain, cardiac angina, COPD, COVID-19 recently (received antibody infusion in May), depression, heel fracture, lung nodule, migraines, neck pain, pneumonia, whooping cough p/w chest pain, shortness of breath, past six days, presented to the ED for further evaluation. Initial team with concern for COPD exacerbation, given steroids, breathing treatment. Never been intubated or admitted for COPD exacerbation. Labs overall WNL, EKG without obvious ischemic changes. Plan for observation for symptom management, cardiac monitoring, breathing treatments, reassessment with WOL. Personal, surgical, family, and social history reviewed with patient. REVIEW OF SYSTEMS Review of Systems Constitutional: Negative. Negative for chills and fever. HENT: Negative. Eyes: Negative. Respiratory: Positive for cough, shortness of breath and wheezing. Negative for hemoptysis and sputum production. Cardiovascular: Positive for chest pain. Negative for palpitations, orthopnea, claudication, leg swelling and PND. Gastrointestinal: Negative. Genitourinary: Negative. Musculoskeletal: Negative. Skin: Negative. Neurological: Negative. Negative for dizziness. Endo/Heme/Allergies: Negative. Psychiatric/Behavioral: Negative. All Other Systems Were Reviewed And Negative Unless Otherwise Noted PAST MEDICAL HISTORY Past Medical History Reviewed, Contributory Findings Include: No other endorsed PMH. 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 Chronic obstructive pulmonary disease (COPD) COVID-19 05/2021 Depression Heel fracture 03/21/2014 right heel Lung nodule s/p open lung biopsy, path benign Migraines Neck pain s/p cervical steroid injection Pneumonia 2002 Whooping cough SURGICAL HISTORY Past Surgical History Reviewed, Contributory Findings Include: No other endorsed PSH. Past Surgical History: Procedure Laterality Date COMPLETE EXTRACTION OF TEETH 08/26/2018 COLONOSCOPY DIAGNOSTIC N/A 05/03/2018 Laterality: N/A; Surgeon: Steven Gardner MD; Location: [facility]OSCOPY [place] [facility]ONOSCOPY FOR COLORECTAL CANCER SCREENING HIGH RISK INDIVIDUAL N/A 05/02/2018 Laterality: N/A; Surgeon: Rohit Rojas MD; Location: [facility] ENDOSCOPY [place]G BI[facility]SY 03/24 for lung nodule AMPUTATION FINGER OR HAND 2008 L 5th digit; chondrosarcoma HYSTERECTOMY, TOTAL ABDOMINAL 1996 ARM SURGERY 1995 fracture TONSILLECTOMY 1975 HYSTERECTOMY ~1995 OOPHORECTOMY Bilateral ~1995 MEDICATIONS GIVEN IN THE ED Medications predniSONE (DELTASONE) tablet 40 mg (40 mg Oral Given 11/09/212047) ipratropium-albuterol (DUONEB) 0.5-2.5 (3) MG/3ML nebulizer solution 3 mL (has no administration in time range) ipratropium-albuterol (DUONEB) 0.5-2.5 (3) MG/3ML nebulizer solution 3 mL (3 mL Nebulization Given 11/09/212013) ALLERGIES Allergies Allergen Reactions Azithromycin Anaphylaxis Other reaction(s): Anaphylaxis, AOF No other known food or drugs or allergies. FAMILY HISTORY Family History Reviewed, Contributory Findings Include: No other endorsed family history per patient. Family History Problem Relation Age of Onset Diabetes Mother Hypertension Mother Other - Specify Mother alzheimers Other - Specify Son son of heart defect Heart Failure Son Hemachromatosis Father Other - Specify Father disorder - "too much iron in blood" Bleeding or Clotting Problems Son Platelet storage pool deficiency Other - Specify Son severe allergies Other - Specify Sister Chronic lung disease Aneurysm Brother Other - Specify Paternal Grandmother TB Other - Specify Cousin multiple myeloma Cancer- Other Paternal Uncle lymphoma Diabetes Paternal Grandfather Colorectal Cancer Neg Hx Breast Cancer Neg Hx Ovarian Cancer Neg Hx Uterine Cancer Neg Hx SOCIAL HISTORY Social History Reviewed, Contributory Findings Include: See below, no other endorsed social history. 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 Tobacco Use Smoking status: Current Every Day Smoker Packs/day: 0.33 Years: 30.00 Pack years: 9.90 Types: Cigarettes Smokeless tobacco: Never Used Tobacco comment: quit on 08/24/2018 Vaping Use Vaping Use: Never used Substance and Sexual Activity Alcohol use: No Comment: rare Drug use: Yes Types: Marijuana Comment: 3-4 x a week Sexual activity: Not Currently Partners: Male control/protection: Hysteroscopic Tubal Occlusion Other Topics Concern Not on file Social History Narrative Not on file Social Determinants of Health Financial Resource Strain: Low Risk Difficulty of Paying Living Expenses: Not hard at all Food Insecurity: No Food Insecurity Worried About Running Out of Food in the Last Year: Never true Ran Out of Food in the Last Year: Never true Transportation Needs: No Transportation Needs Lack of Transportation (Medical): No Lack of Transportation (Non-Medical): No Physical Activity: Inactive Days of Exercise per Week: 0 days Minutes of Exercise per Session: 0 min Stress: Stress Concern Present Feeling of Stress : To some extent Social Connections: Socially Isolated Frequency of Communication with Friends and Family: More than three times a week Frequency of Social Gatherings with Friends and Family: More than three times a week Attends Hindu Services: Never Active Member of Clubs or Organizations: No Attends Club or Organization Meetings: Never Marital Status: Intimate Partner Violence: Not At Risk Fear of Current or Ex-Partner: No Emotionally Abused: No Physically Abused: No Sexually Abused: No Housing Stability: Unknown Unable to Pay for Housing in the Last Year: No Number of Places Lived in the Last Year: Not on file Unstable Housing in the Last Year: No PHYSICAL EXAM BP 138/90 Pulse 93 Temp 97.5 F (36.4 C) (Oral) Resp 16 Ht 1.626 m (5' 4") SpO2 95% BMI 16.75 kg/m Smoking Status Current Every Day Smoker Physical Exam Vitals and nursing note reviewed. Constitutional: General: She is not in acute distress. Appearance: She is well-developed. She is not diaphoretic. HENT: Head: Normocephalic and atraumatic. Eyes: General: No scleral icterus. Conjunctiva/sclera: Conjunctivae normal. Pupils: Pupils are equal, round, and reactive to light. Neck: Vascular: No JVD. Cardiovascular: Rate and Rhythm: Normal rate and regular rhythm. Heart sounds: No murmur heard. No friction rub. No gallop. Pulmonary: Effort: Pulmonary effort is normal. No respiratory distress. Breath sounds: Examination of the right-upper field reveals wheezing. Examination of the left-upper field reveals wheezing. Examination of the right-middle field reveals wheezing. Examination of the left-middle field reveals wheezing. Examination of the right-lower field reveals wheezing. Examination of the left-lower field reveals wheezing. Wheezing present. No decreased breath sounds, rhonchi or rales. Chest: Chest wall: No tenderness. Abdominal: General: There is no distension. Palpations: Abdomen is soft. There is no mass. Tenderness: There is no abdominal tenderness. There is no guarding or rebound. Musculoskeletal: General: Normal range of motion. Cervical back: Normal range of motion and neck supple. Skin: General: Skin is warm and dry. Neurological: Mental Status: She is alert and oriented to person, place, and time. Cranial Nerves: No cranial nerve deficit. Psychiatric: Behavior: Behavior normal. Thought Content: Thought content normal. Judgment: Judgment normal. EDOU COURSE & MEDICAL DECISION MAKING Risk stratification appropriate for observation level of care. Patient was placed in EDOU on the Asthma protocol. Patient age greater than 64y/o? NO DDx includes: Asthma exacerbation, COPD exacerbation, GERD, gastritis, PUD, costochondritis, ACS, pericarditis, myocarditis, PE, bronchitis, PNA I reviewed the patients' medical records and nursing notes and noted their allergies, past medical history, and previous visits. The reviewed showed Results for orders placed or performed during the hospital encounter of 11/09/21 CHEM 7 (LYTES,BUN,CREA,GLUC) Result Value Ref Range Sodium 138 135 - 145 mmol/L Potassium 4.0 3.5 - 5.0 mmol/L Chloride 103 98 - 108 mmol/L CO2 29 21 - 31 mmol/L Glucose 154 (H) 70 - 99 mg/dL BUN 8 7 - 25 mg/dL Creatinine 0.85 0.50 - 1.20 mg/dL Bun/Crea Ratio 9 Osmolality (Calculated) 291 278 - 305 mOsm/kg Anion Gap 10 7 - 17 mmol/L eGFR, CKD-EPI, Female 78 >=60 mL/min/1.73m2 PHOSPHATE, INORGANIC Result Value Ref Range Phosphorous 3.4 2.2 - 4.6 mg/dL MAGNESIUM Result Value Ref Range Magnesium 2.0 1.6 - 2.6 mg/dL CALCIUM Result Value Ref Range Calcium 9.6 8.6 - 10.5 mg/dL HIGH SENSITIVITY TROPONIN I - SINGLE ORDER Result Value Ref Range hs-Troponin I 5 <34 ng/L B-TYPE NATRIURETIC PEPTIDE (BRAIN) Result Value Ref Range BNP 14 0 - 100 pg/mL CBC AND ELECTRONIC DIFF Result Value Ref Range WBC Count 8.35 3.99 - 11.19 K/uL RBC Count 4.82 3.91 - 5.04 M/uL Hemoglobin 15.1 11.4 - 15.2 g/dL Hematocrit 44.6 (H) 34.9 - 44.3 % Mean Cell Volume 92.5 79.6 - 97.7 fL Mean Cell Hgb 31.3 25.9 - 33.9 pg Mean Cell Hgb Conc 33.9 31.4 - 35.9 g/dL RBC Distribution 13.0 10.8 - 14.9 % Platelet Count 221 150 - 393 K/uL Mean Platelet Volume 10.5 8.5 - 12.2 fL DIFF STATUS Electronic Differential Segs + Bands Auto 46.3 % Immature Grans % 0.2 % Lymphocyte % Auto 37.1 % Monocyte % Auto 7.9 % Eosinophil % Auto 7.9 % Basophil % Auto 0.6 % Nucleated RBC 0.0 <=0.2 /100 WBC Segs + Bands,Absolute Auto 3.86 1.64 - 7.28 K/uL Immature Grans Absolute <0.04 <=0.09 K/uL Abs Lymph Auto 3.10 1.16 - 3.51 K/uL Abs Sunflower Auto 0.66 0.22 - 0.87 K/uL Abs Eos Auto 0.66 (H) 0.00 - 0.42 K/uL Abs Baso Auto 0.05 0.00 - 0.15 K/uL XR CHEST PA AND LATERAL Final Result IMPRESSION: No acute cardiopulmonary disease. Emphysema. I personally viewed and interpreted these images and I have reviewed and approved this report. The patient received the following interventions in the ED to date: Labs, EKG, chest x-ray, cardiac monitoring, home medications, breathing treatments, steroids, pending continued monitoring overnight, reassessment with WOL prior to discharge. On reassessment the patient's response to the interventions was slightly improved, vitals stable, still having some wheezing on exam, able to talk in full sentences, 94% on RA. While in the EDOU we will continue to check, monitor and reassess patient and alter our plan as clinically appropriate. This is a non-shared visit on 11/09/2021. Electronically signed by: Kelechi Blount PA-C, 11/09/2021 10:[address] [facility] Work Phone: 11-09-2021 Note Formatting of this n ote is different from the original. DEPARTMENT OF EMERGENCY MEDICINE CHIEF COMPLAINT Chief Complaint Patient presents with Chest Pain Shortness of Breath HISTORY OF PRESENT ILLNESS Chni Whiting is a 61 y.o. female was appropriately risk stratified for observation level of care and was placed on the EDOU Asthma protocol. Symptoms started with PMH adenoid hypertrophy, back pain, cardiac angina, COPD, COVID-19 recently (received antibody infusion in May), depression, heel fracture, lung nodule, migraines, neck pain, pneumonia, whooping cough p/w chest pain, shortness of breath, past six days, presented to the ED for further evaluation. Initial team with concern for COPD exacerbation, given steroids, breathing treatment. Never been intubated or admitted for COPD exacerbation. Labs overall WNL, EKG without obvious ischemic changes. Plan for observation for symptom management, cardiac monitoring, breathing treatments, reassessment with WOL. Personal, surgical, family, and social history reviewed with patient. REVIEW OF SYSTEMS Review of Systems Constitutional: Negative. Negative for chills and fever. HENT: Negative. Eyes: Negative. Respiratory: Positive for cough, shortness of breath and wheezing. Negative for hemoptysis and sputum production. Cardiovascular: Positive for chest pain. Negative for palpitations, orthopnea, claudication, leg swelling and PND. Gastrointestinal: Negative. Genitourinary: Negative. Musculoskeletal: Negative. Skin: Negative. Neurological: Negative. Negative for dizziness. Endo/Heme/Allergies: Negative. Psychiatric/Behavioral: Negative. All Other Systems Were Reviewed And Negative Unless Otherwise Noted PAST MEDICAL HISTORY Past Medical History Reviewed, Contributory Findings Include: No other endorsed PMH. 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 Past Surgical History: Procedure Laterality Date COMPLETE EXTRACTION OF TEETH 08/26/2018 COLONOSCOPY DIAGNOSTIC N/A 05/03/2018 Laterality: N/A; Surgeon: Steven Gardner MD; Location: [facility] [place] COLONOSCOPY FOR COLORECTAL CANCER SCREENING HIGH RISK INDIVIDUAL N/A 05/02/2018 Laterality: N/A; Surgeon: Rohit Rojas MD; Location: [facility] [place] LUNG BIOPSY 03/24 for lung nodule AMPUTATION FINGER OR HAND 2007 L 5th digit; chondrosarcoma HYSTERECTOMY, TOTAL ABDOMINAL 1996 ARM SURGERY 1995 fracture TONSILLECTOMY 1975 HYSTERECTOMY ~1995 OOPHORECTOMY Bilateral ~1995 MEDICATIONS GIVEN IN THE ED Medications predniSONE (DELTASONE) tablet 40 mg (40 mg Oral Given 11/09/212047) ipratropium-albuterol (DUONEB) 0.5-2.5 (3) MG/3ML nebulizer solution 3 mL (has no administration in time range) ipratropium-albuterol (DUONEB) 0.5-2.5 (3) MG/3ML nebulizer solution 3 mL (3 mL Nebulization Given 11/09/212013) ALLERGIES Allergies Allergen Reactions Azithromycin Anaphylaxis Other reaction(s): Anaphylaxis, AOF No other known food or drugs or allergies. FAMILY HISTORY Family History Reviewed, Contributory Findings Include: No other endorsed family history per patient. Family History Problem Relation Age of Onset Diabetes Mother Hypertension Mother Other - Specify Mother alzheimers Other - Specify Son son of heart defect Heart Failure Son Hemachromatosis Father Other - Specify Father disorder - "too much iron in blood" Bleeding or Clotting Problems Son Platelet storage pool deficiency Other - Specify Son severe allergies Other - Specify Sister Chronic lung disease Aneurysm Brother Other - Specify Paternal Grandmother TB Other - Specify Cousin multiple myeloma Cancer- Other Paternal Uncle lymphoma Diabetes Paternal Grandfather Colorectal Cancer Neg Hx Breast Cancer Neg Hx Ovarian Cancer Neg Hx Uterine Cancer Neg Hx SOCIAL HISTORY Social History Reviewed, Contributory Findings Include: See below, no other endorsed social history. 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 Tobacco Use Smoking status: Current Every Day Smoker Packs/day: 0.33 Years: 30.00 Pack years: 9.90 Types: Cigarettes Smokeless tobacco: Never Used Tobacco comment: quit on 08/24/2018 Vaping Use Vaping Use: Never used Substance and Sexual Activity Alcohol use: No Comment: rare Drug use: Yes Types: Marijuana Comment: 3-4 x a week Sexual activity: Not Currently Partners: Male control/protection: Hysteroscopic Tubal Occlusion Other Topics Concern Not on file Social History Narrative Not on file Social Determinants of Health Financial Resource Strain: Low Risk Difficulty of Paying Living Expenses: Not hard at all Food Insecurity: No Food Insecurity Worried About Running Out of Food in the Last Year: Never true Ran Out of Food in the Last Year: Never true Transportation Needs: No Transportation Needs Lack of Transportation (Medical): No Lack of Transportation (Non-Medical): No Physical Activity: Inactive Days of Exercise per Week: 0 days Minutes of Exercise per Session: 0 min Stress: Stress Concern Present Feeling of Stress : To some extent Social Connections: Socially Isolated Frequency of Communication with Friends and Family: More than three times a week Frequency of Social Gatherings with Friends and Family: More than three times a week Attends Hindu Services: Never Active Member of Clubs or Organizations: No Attends Club or Organization Meetings: Never Marital Status: Intimate Partner Violence: Not At Risk Fear of Current or Ex-Partner: No Emotionally Abused: No Physically Abused: No Sexually Abused: No Housing Stability: Unknown Unable to Pay for Housing in the Last Year: No Number of Places Lived in the Last Year: Not on file Unstable Housing in the Last Year: No PHYSICAL EXAM BP 138/90 Pulse 93 Temp 97.5 F (36.4 C) (Oral) Resp 16 Ht 1.626 m (5' 4") SpO2 95% BMI 16.75 kg/m Smoking Status Current Every Day Smoker Physical Exam Vitals and nursing note reviewed. Constitutional: General: She is not in acute distress. Appearance: She is well-developed. She is not diaphoretic. HENT: Head: Normocephalic and atraumatic. Eyes: General: No scleral icterus. Conjunctiva/sclera: Conjunctivae normal. Pupils: Pupils are equal, round, and reactive to light. Neck: Vascular: No JVD. Cardiovascular: Rate and Rhythm: Normal rate and regular rhythm. Heart sounds: No murmur heard. No friction rub. No gallop. Pulmonary: Effort: Pulmonary effort is normal. No respiratory distress. Breath sounds: Examination of the right-upper field reveals wheezing. Examination of the left-upper field reveals wheezing. Examination of the right-middle field reveals wheezing. Examination of the left-middle field reveals wheezing. Examination of the right-lower field reveals wheezing. Examination of the left-lower field reveals wheezing. Wheezing present. No decreased breath sounds, rhonchi or rales. Chest: Chest wall: No tenderness. Abdominal: General: There is no distension. Palpations: Abdomen is soft. There is no mass. Tenderness: There is no abdominal tenderness. There is no guarding or rebound. Musculoskeletal: General: Normal range of motion. Cervical back: Normal range of motion and neck supple. Skin: General: Skin is warm and dry. Neurological: Mental Status: She is alert and oriented to person, place, and time. Cranial Nerves: No cranial nerve deficit. Psychiatric: Behavior: Behavior normal. Thought Content: Thought content normal. Judgment: Judgment normal. EDOU COURSE & MEDICAL DECISION MAKING Risk stratification appropriate for observation level of care. Patient was placed in EDOU on the Asthma protocol. Patient age greater than 64y/o? NO DDx includes: Asthma exacerbation, COPD exacerbation, GERD, gastritis, PUD, costochondritis, ACS, pericarditis, myocarditis, PE, bronchitis, PNA I reviewed the patients' medical records and nursing notes and noted their allergies, past medical history, and previous visits. The reviewed showed Results for orders placed or performed during the hospital encounter of 11/09/21 CHEM 7 (LYTES,BUN,CREA,GLUC) Result Value Ref Range Sodium 138 135 - 145 mmol/L Potassium 4.0 3.5 - 5.0 mmol/L Chloride 103 98 - 108 mmol/L CO2 29 21 - 31 mmol/L Glucose 154 (H) 70 - 99 mg/dL BUN 8 7 - 25 mg/dL Creatinine 0.85 0.50 - 1.20 mg/dL Bun/Crea Ratio 9 Osmolality (Calculated) 291 278 - 305 mOsm/kg Anion Gap 10 7 - 17 mmol/L eGFR, CKD-EPI, Female 78 >=60 mL/min/1.73m2 PHOSPHATE, INORGANIC Result Value Ref Range Phosphorous 3.4 2.2 - 4.6 mg/dL MAGNESIUM Result Value Ref Range Magnesium 2.0 1.6 - 2.6 mg/dL CALCIUM Result Value Ref Range Calcium 9.6 8.6 - 10.5 mg/dL HIGH SENSITIVITY TROPONIN I - SINGLE ORDER Result Value Ref Range hs-Troponin I 5 <34 ng/L B-TYPE NATRIURETIC PEPTIDE (BRAIN) Result Value Ref Range BNP 14 0 - 100 pg/mL CBC AND ELECTRONIC DIFF Result Value Ref Range WBC Count 8.35 3.99 - 11.19 K/uL RBC Count 4.82 3.91 - 5.04 M/uL Hemoglobin 15.1 11.4 - 15.2 g/dL Hematocrit 44.6 (H) 34.9 - 44.3 % Mean Cell Volume 92.5 79.6 - 97.7 fL Mean Cell Hgb 31.3 25.9 - 33.9 pg Mean Cell Hgb Conc 33.9 31.4 - 35.9 g/dL RBC Distribution 13.0 10.8 - 14.9 % Platelet Count 221 150 - 393 K/uL Mean Platelet Volume 10.5 8.5 - 12.2 fL DIFF STATUS Electronic Differential Segs + Bands Auto 46.3 % Immature Grans % 0.2 % Lymphocyte % Auto 37.1 % Monocyte % Auto 7.9 % Eosinophil % Auto 7.9 % Basophil % Auto 0.6 % Nucleated RBC 0.0 <=0.2 /100 WBC Segs + Bands,Absolute Auto 3.86 1.64 - 7.28 K/uL Immature Grans Absolute <0.04 <=0.09 K/uL Abs Lymph Auto 3.10 1.16 - 3.51 K/uL Abs Sunflower Auto 0.66 0.22 - 0.87 K/uL Abs Eos Auto 0.66 (H) 0.00 - 0.42 K/uL Abs Baso Auto 0.05 0.00 - 0.15 K/uL XR CHEST PA AND LATERAL Final Result IMPRESSION: No acute cardiopulmonary disease. Emphysema. I personally viewed and interpreted these images and I have reviewed and approved this report. The patient received the following interventions in the ED to date: Labs, EKG, chest x-ray, cardiac monitoring, home medications, breathing treatments, steroids, pending continued monitoring overnight, reassessment with WOL prior to discharge. On reassessment the patient's response to the interventions was slightly improved, vitals stable, still having some wheezing on exam, able to talk in full sentences, 94% on RA. While in the EDOU we will continue to check, monitor and reassess patient and alter our plan as clinically appropriate. This is a non-shared visit on 11/09/2021. Electronically signed by: Kelechi Blount PA-C, 11/09/2021 10:[address] [facility] Work Phone: 11-09-2021 Physician Emergency department Note ED ATTENDING NOTE Chief Complaint: Chest Pain and Shortness of Breath HPI: Chin Whiting is a 61 y.o. female with a past medical history significant for COPD not on home O2 who presents with shortness of breath, cough productive of clear sputum, and chest discomfort with coughing. Had COVID a few months ago and is vaccinated. Denies fever, chills, nausea, vomiting, diarrhea. Multiple possible sick contacts from grandchildren. ROS: See history of present illness for pertinent positive and negative review of systems. A 14 point review systems was reviewed and are negative except as indicated above. Past Medical History: 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 Chronic obstructive pulmonary disease (COPD) COVID-19 05/2021 Depression Heel fracture 03/21/2014 right heel Lung nodule s/p open lung biopsy, path benign Migraines Neck pain s/p cervical steroid injection Pneumonia 2002 Whooping cough Vital Signs: BP 130/84 Pulse (S) 122 Temp 97.7 F (36.5 C) (Infrared) Resp (S) 24 Ht 1.626 m (5' 4") SpO2 94% BMI 16.75 kg/m Smoking Status Current Every Day Smoker Pertinent Exam: General: In general the patient is in no acute distress. HEENT: PERRLA, EOMI, no pharyngeal erythema, no tonsillar exudate. Neck: Normal inspection, no thyromegaly, no lymphadenopathy. Respiratory: No distress, wheezing. CVS: Tachy, regular, no murmurs, rubs, or gallops Abdomen: No focal tenderness to palpation. No guarding or rebound. Skin: Normal color, warm, dry, without rashes. Extremities: Non-tender, full ROM, no pedal edema. Neuro: Oriented x3, GCS of 15, no focal neurologic deficits. Psych: Mood and affect normal. EKG Interpretation: Interpreted by me as emergency department attending physician Rhythm: sinus tach Rate: 115 [place]: normal Ectopy: none ST Segments: non specific abnormalities T Waves: normal Q Waves: none Clinical Impression: Sinus tach, R atrial enlargement, no evidence of ischemia or R heart strain. Does not appear grossly changed from prior. Shine Ortiz MD ED Attending Physician [facility] Results for orders placed or performed during the hospital encounter of 11/09/21 CHEM 7 (LYTES,BUN,CREA,GLUC) Result Value Ref Range Sodium 138 135 - 145 mmol/L Potassium 4.0 3.5 - 5.0 mmol/L Chloride 103 98 - 108 mmol/L CO2 29 21 - 31 mmol/L Glucose 154 (H) 70 - 99 mg/dL BUN 8 7 - 25 mg/dL Creatinine 0.85 0.50 - 1.20 mg/dL Bun/Crea Ratio 9 Osmolality (Calculated) 291 278 - 305 mOsm/kg Anion Gap 10 7 - 17 mmol/L eGFR, CKD-EPI, Female 78 >=60 mL/min/1.73m2 PHOSPHATE, INORGANIC Result Value Ref Range Phosphorous 3.4 2.2 - 4.6 mg/dL MAGNESIUM Result Value Ref Range Magnesium 2.0 1.6 - 2.6 mg/dL CALCIUM Result Value Ref Range Calcium 9.6 8.6 - 10.5 mg/dL HIGH SENSITIVITY TROPONIN I - SINGLE ORDER Result Value Ref Range hs-Troponin I 5 <34 ng/L B-TYPE NATRIURETIC PEPTIDE (BRAIN) Result Value Ref Range BNP 14 0 - 100 pg/mL CBC AND ELECTRONIC DIFF Result Value Ref Range WBC Count 8.35 3.99 - 11.19 K/uL RBC Count 4.82 3.91 - 5.04 M/uL Hemoglobin 15.1 11.4 - 15.2 g/dL Hematocrit 44.6 (H) 34.9 - 44.3 % Mean Cell Volume 92.5 79.6 - 97.7 fL Mean Cell Hgb 31.3 25.9 - 33.9 pg Mean Cell Hgb Conc 33.9 31.4 - 35.9 g/dL RBC Distribution 13.0 10.8 - 14.9 % Platelet Count 221 150 - 393 K/uL Mean Platelet Volume 10.5 8.5 - 12.2 fL DIFF STATUS Electronic Differential Segs + Bands Auto 46.3 % Immature Grans % 0.2 % Lymphocyte % Auto 37.1 % Monocyte % Auto 7.9 % Eosinophil % Auto 7.9 % Basophil % Auto 0.6 % Nucleated RBC 0.0 <=0.2 /100 WBC Segs + Bands,Absolute Auto 3.86 1.64 - 7.28 K/uL Immature Grans Absolute <0.04 <=0.09 K/uL Abs Lymph Auto 3.10 1.16 - 3.51 K/uL Abs Sunflower Auto 0.66 0.22 - 0.87 K/uL Abs Eos Auto 0.66 (H) 0.00 - 0.42 K/uL Abs Baso Auto 0.05 0.00 - 0.15 K/uL XR CHEST PA AND LATERAL Final Result IMPRESSION: No acute cardiopulmonary disease. Emphysema. I personally viewed and interpreted these images and I have reviewed and approved this report. COURSE, MEDICAL DECISION MAKING, PLAN OF CARE On 11/09/2021 I saw and personally examined the patient. I discussed the history and examination with the resident physician and agree with the plan of care. Differential Diagnosis/Clinical Impression: Patient presents with SOB, cough, and wheezing. She is very well appearing. She did have a de sat to high 80s with ambulation but now is 94% in 1-2L NC which is new for her. She states she is normally high 90s on room air. Her labs and XR are all normal. Was initially tachycardic so did consider PE but overall clinical picture more consistent with COPD exacerbation> Will give steroids, nebs, and place in CDU for continued management. Shine Ortiz MD ED Attending Physician [facility] Shine Ortiz MD 11/09/215 [facility] Work Phone: 11-09-2021 Note Acute Coronary Syndr ome (ACS): Initial Evaluation and Management: [email or web address] [facility] 11-09-2021 Note Acute Coronary Syndr ome (ACS): Initial Evaluation and Management: [email or web address] [facility] 11-09-2021 Emergency department Note PMH of COPD. C/o SOB and CP x 6 days. Associated s/s: Tachycardic. [facility] 11-09-2021 Physician Emergency department Note CHIEF COMPLAINT: Chief Complaint Patient presents with Chest Pain Shortness of Breath Brief History and plan for triage: Chin Whiting is a 61 y.o. female who has a past medical history of Adenoid hypertrophy (05/2010), Back pain, Cardiac angina, Chondrosarcoma nos (1999), Chronic obstructive pulmonary disease (COPD), COVID-19 (05/2021), Depression, Heel fracture (03/21/2014), Lung nodule, Migraines, Neck pain, Pneumonia (2001), and Whooping cough. She has no past medical history of Exposure to hazardous chemical or History of radiation exposure. with left sided chest pain and cough. Symptoms since . ROS: no leg swelling, history of COPD Ht 1.626 m (5' 4") BMI 16.75 kg/m Smoking Status Current Every Day Smoker Breath sounds distant with left sided wheezing, cor - RR, no tachycardia No peripheral edema This patient presented to the Arrival Zone. I reviewed the patient's past medical history and medication list. I saw and examined the patient today. Labs and CXR were ordered appropriate to the triage complaint. EKG Interpretation Interpreted by emergency department physician Rhythm: normal sinus Rate: 115 [place]: normal Ectopy: none Conduction: normal ST Segments: non-specific changes T Waves: normal Q Waves: none Clinical Impression: sinus tachycardia MD Juan Goode MD 11/09/21 [id number] [facility] Work Phone: 10-11-2021 Instructions Meaghan QuintanaiamEZRA-VEE - 10/11/2021 11:41 AM EDT Chin Whiting, you were seen in rheumatology clinic 10/11/2021. If laboratory tests or radiology studies were ordered, please allow one to two weeks for all the results to be processed and results available. If you have not heard from our office in 2 weeks or have not scheduled a follow up appointment to go over the results, please call our office to review the results. Once labs are completed you can access them from [facility] if completed at [facility]. If labs completed at an outside labs and have not heard back about results after 3 weeks, please contact office to verify that they were received. If treatment changes are necessary as a result of abnormal labs, someone from our clinic will contact you when results are in. If they are not able to contact you by phone or [facility], a letter will be mailed to your home if necessary. For all urgent or life-threatening medical problems, seek immediate care in the emergency room. For non-rheumatology related questions, routine medical questions, or medication questions regarding medications not prescribed by the Rheumatology department, please contact your primary care provider. To reach Meaghan Chambers NP outside of clinic, we recommend our secure electronic messaging system ([facility]) which gets checked at least once a day; most messages are responded to within 24-48 hours. Do not use [facility] for urgent medical issues. You can also call our rheumatology triage line during business hours at [phone]. Please follow up in rheumatology clinic as scheduled on your check-out paperwork. Additional instructions for you, if needed, are below: PLAN: - order labs today - clinical notes, labs and radiology reports reviewed - call if changes in condition - allowed time for discussion and patient's questions answered FOLLOW-UP: 1 year or as needed documented in this encounter [facility] 10-11-2021 History of Present illness Narrative Patient name and verified. Medications reviewed with patient by Leidy Mark MA Are you currently taking any OTC medication/supplements/herbals? Yes: see med list Any questions about your medications or need more information? No Any barriers to care, such as cost or side effects from your medications? No Any hospitalizations, ED or other specialist visits since your last appointment with us? No Chief Complaint Patient presents with Follow-up Immunology: LULU - RF + 39 CCP - EMERGENCY GENERATOR MECHANIC - SM - SSA - SSB - Dsdna - ANCA - MPO - [place]-3 - RODO - Hep B 11/2020 - Hep C 11/2020 - Dx Data/Date: 1. Skin bx 10/2020- The histopathologic findings are nearly identical to those noted in a previous biopsy from this site ([id number]). There is a prominent superficial and deep perivascular and interstitial infiltrate composed of lymphocytes and histiocytes with numerous eosinophils. These findings are not entirely specific. Because of edema and necrosis in the lower portion of the specimen, an infectious process is somewhat suspected, despite negative stains for microorganisms (GMS, PAS, AFB). The differential diagnosis includes a hypersensitivity reaction, a granulomatous drug eruption, interstitial granulomatous dermatitis, and granulomas that may be seen in the setting of ANCA-positive vasculitides. 2. Chest CT 08/2020- Increased size of a nodule in the right lower lobe and new tiny nodule in the left lower lobe. These are indeterminate for metastatic disease. Close interval surveillance is recommended. A 6 month time interval would be reasonable. No intrathoracic lymphadenopathy. 3. right foot xray 08/2020- Diminished bone mineralization. Stable deformity of the calcaneus. No acute osseous abnormality. 4. CXR 07/2020- Chronic changes without evidence of acute cardiopulmonary disease or appreciable change from May 12, 2019. 5. Hand xrays 11/2020- No acute osseous abnormality. Mild osteoarthritis at distal interphalangeal joints. Previous amputation of the fifth ray at the metacarpal base. 6. US of left knee 03/2021- Longitudinal and transverse scan were obtained from the anterior aspects of the R knee. There was a small knee effusions. No doppler signal or any tendon abnormalities. With the knee at the point of maximal flexion the cartilage thickness seems to be low consistent with osteoarthritis. Impression: small right knee effusion. Knee osteoarthritis 7. Skin bx 01/2021- Both biopsies show similar findings, and are similar to those noted in prior biopsy specimens from the same patient ([id number], [id number]). There is a prominent superficial and deep perivascular infiltrate composed of lymphocytes and numerous eosinophils. Interstitial histiocytes are also present. 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 A granulomatous drug eruption is also a consideration. Given the prominent perivascular lymphocytic infiltrate and tissue eosinophilia, the various causes of dermal hypersensitivity reaction and tissue eosinophilia are also considerations, including an arthropod bite reaction, parasitic infection, cutaneous lesions in the setting of hypereosinophilic syndrome, eosinophilic annular erythema, and eosinophilic cellulitis, among others. On occasion, similar histopathologic features may be seen as a paraneoplastic phenomenon 8. Knee xrays 05/2021- No specific osseous abnormality. Generalized osteopenia. 9. C-t spine xrays 05/2021- Multilevel degenerative disc disease, most pronounced at C5-C6. Uncovertebral hypertrophy with resultant narrowing of the C5-C6 left neural foramen. Multilevel degenerative disc disease of the thoracic spine. 10. lumbar spine and SI joint xrays 05/2021- Multilevel degenerative disc changes and facet arthrosis, most pronounced at L5-S1. Bilateral degenerative changes of the sacroiliac joints. NOTABLE CLINICAL EVENTS 1. H/o COPD, chondrosarcoma History of Present Illness: Pt returns for follow up last seen by DIE CASTING MACHINE SETTER 05/2021 for new nodules and bx showing interstitial granulomatous dermatitis. Noted mildly positive RF so pt sent [facility] for [facility]. US noted knee effusion and osteoarthritis. Seen by derm and found 2 types of cancer (cartilage and another type). Has not seen oncology since 12/2020. Has not found a malignancy on scans per pt. H/o chondrosarcomas w/ intermittent ankle swelling in past and still notes occasional swelling but stable today. Plan to schedule follow up w/ oncology. osteoarthritis noted on xrays last visit, so plan was to follow up in spine clinic for mgt. Following w/ derm for skin nodules and previous biopsies last seen 05/2021. Denies joint swelling. Has chronic myalgias but pain mostly in back and neck. Feels like muscle are tight but denies muscle weakness, dysphagia. AM stiffness lasts 5 minutes. Activity does not make a difference in pain level. Denies rheum s/s. No medication improves symptoms. Using stem cell replacement. Reports having these symptoms when pt was 1st dx with cancer. PMHx: Chin Whiting is a 60 y.o. female referred by Dr. Rowley, Marisa Dao MD for Pt w/ new nodules, bx x2 showing interstitial granulomatous dermatitis. This rash most commonly seen 2/2 rheum disorders, RAa most commonly. RF elevated, persistent joint pain and fatigue. Referral for further workup of possible rheumatolgic/autoimmune conditions. D/t bx findings pt was also referred to heme/onc with negative workup except size increase of lung nodules. Reports having lumps to come up on left forearm. Noted cancer cells in 1st bx. Following w/ oncology for further scanning. Reports everything feels "tight", everything is being pulled. AM stiffness lasts bout 1hour. Denies hemoptysis, hematuria. Denies neuro s/s. Denies red, warm, swollen joints. Denies other rheum s/s. Reports having rash on back for past 4-5 days, not seen by derm. New rash not seen in the past. Other than COPD, denies heart or lung problems, GI bleed/ulcers, psoriasis,eye inflammation. 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 Completed COVID vaccination. ROS: denies fever, chills, sweats, infections, weight loss, chest pain, cough, SOB, abd pain, n/v/d/c,bloody stools, easy bruising, bleeding, GI bleed/ulcers, kidney stones, enlarged lymph nodes, rashes,skin changes, raynauds, alopecia, mouth sores, n/t, muscle weakness, dysphagia, urinary sx, depression,anxiety, suicidal ideation. Denies new medications, new dx, hospitalization or surgeries since last visit. Meds: takes medications as prescribed. Denies SE or problems with medications. Current Outpatient Medications Medication Sig Dispense Refill calcium carbonate-vitamin D 600mg-400units 600-400 MG-UNIT tablet Take 1 tablet by mouth 2 times daily with meals. 60 tablet 11 Calcium Carbonate-Vitamin D3 600-400 MG-UNIT tablet Take 1 tablet by mouth 2 times daily with meals. Dextromethorphan-Pyrilamine (K[place]wood DMT) 30-30 MG tablet Take 1 tablet by mouth 2 times daily as needed. 60 tablet 0 DISABILITY PLACARD Disability placard end date 09/28/2022 1 Each 0 fluticasone 50 MCG/ACT Suspension nasal spray 1 spray by Nasal route daily. 16 mL 5 ipratropium-albuterol 0.5-2.5 (3) MG/3ML nebulizer solution Take 3 mL by nebulization every 6 hours as needed for Wheezing, Shortness of Breath or Breathing Treatment. 90 mL 1 loratadine (Claritin) 10 MG tablet Take 1 tablet by mouth daily. 90 tablet 1 tiotropium (Spiriva Respimat) 2.5 MCG/ACT Aero Soln inhaler Inhale one puff every day 12 g 1 Ventolin HFA 108 (90 Base) MCG/ACT Aero Soln inhaler INHALE 2 PUFFS BY MOUTH EVERY 6 HOURS NEEDED FOR SHORTNESS OF BREATH, COUGH OR WHEEZING 18 g 1 No current facility-administered medications for this visit. Allergies Allergen Reactions Azithromycin Anaphylaxis Other reaction(s): Anaphylaxis, AOF CBC Lab Results Component Value Date WBC 9.06 09/22/2021 HGB 16.1 (H) 09/22/2021 HCT 48.9 (H) 09/22/2021 PLATELET 251 09/22/2021 MCV 93.9 09/22/2021 EDIF Lab Results Component Value Date RBCDISTRIBU 12.9 09/22/2021 GRNLOCYT 61.3 09/22/2021 LYMPHOCYT 30.7 09/22/2021 MONOCYTELEC 6.3 09/22/2021 EOSINOPHILS 1.1 09/22/2021 BASOPHILS 0.4 09/22/2021 GRNLOCTYABS 5.9 03/23/2010 LYMPHOCYTABS 2.78 09/22/2021 MONOSABSOLU 0.5 03/23/2010 EOSINOPHLABS 0.10 09/22/2021 BASOPHILSABS 0.0 03/23/2010 PLATELET 251 09/22/2021 MPV 11.4 09/22/2021 Lab Results Component Value Date SODIUM 141 09/22/2021 POTASSIUM 4.6 09/22/2021 CHLORIDE 107 09/22/2021 CO2 26 09/22/2021 BUN 12 09/22/2021 CREATSERUM 0.80 09/22/2021 GLUCOSE 83 09/22/2021 Lab Results Component Value Date ALT 15 09/22/2021 Lab Results Component Value Date ALBUMIN 4.7 09/22/2021 Lab Results Component Value Date ALKPHOS 67 09/22/2021 Lab Results Component Value Date SEDRATE 23 11/29/2020 Lab Results Component Value Date CRP 0.79 11/29/2020 PHYSICAL EXAM: BP 100/60 (BP Location: Right arm, BP Position: Sitting) Pulse 75 Temp 97.3 F (36.3 C) (Temporal) Ht 1.626 m (5' 4") Wt 44.3 kg (97 lb 9.6 oz) SpO2 97% BMI 16.75 kg/m Smoking Status Current Every Day Smoker Appearance: NAD Eyes: PERRL, clear sclera, pink conjunctiva Heart: RRR, no m/g/r, pedal pulses present Lungs: CTAB, normal respiratory effort GI: BS x4, nt, nd Ext: no c/c/e Skin: no rashes or lesions noted Msk: FROM of hands, wrists, elbows, shoulders, neck, hips, knees, ankles, feet, spine Hands/wrists- no pain on palpation, no swelling or active synovitis noted Knees: no pain on palpation, no swelling or active synovitis noted Ankles/feet: no pain on palpation, no swelling or active synovitis noted HEALTH MAINTENANCE - UTD on vaccinations 11/2020 - UTD on cancer screenings 11/2020 - Etoh and tobacco use reviewed 11/2020- smokes 3 cigs/day, denies etoh use, smokes marijuana daily ASSESSMENT: 1. Positive RF w/ chronic neck/back pain (no peripheral joint symptoms), inconclusive skin bx questioning possible rheumatic condition. US of knee noted mild effusion and presence of osteoarthritis. H/o chondrosarcoma w/ workup by oncology. Noninflammatory exam. Rpt serologies and labs today. Will follow up and reevaluate if necessary. Pt verbalized understanding. PLAN: - order labs today - clinical notes, labs and radiology reports reviewed - call if changes in condition - allowed time for discussion and patient's questions answered FOLLOW-UP: 1 year or as needed Pt ok with leaving VM w/ results if needed TYRON Wolfe, RN-BC, MS, DIE CASTING MACHINE SETTER-[facility] Division of Immunology [place] [address] Office: [phone] / Direct: [phone]/Pager: [phone] documented in this encounter [facility] Evaluation note Diagnosis Rheumatoid factor positive- Primary Other and unspecified nonspecific immunological findings [facility] COPD exacerbation- Primary Obstructive chronic bronchitis with exacerbation Chronic obstructive pulmonary disease with acute exacerbation Obstructive chronic bronchitis with exacerbation [facility] Diagnosis COPD exacerbation- Primary Obstructive chronic bronchitis with exacerbation Chronic obstructive pulmonary disease with acute exacerbation Obstructive chronic bronchitis with exacerbation [facility] Diagnosis COPD with acute exacerbation- Primary Obstructive chronic bronchitis with exacerbation [facility] Diagnosis Hypoxia- Primary Hypoxemia Chronic obstructive pulmonary disease (COPD) - s/p L pneumonectomy Chronic airway obstruction, not elsewhere classified [facility] Diagnosis Solid nodule of lung 6 mm to 8 mm in diameter [facility] Diagnosis Lung nodule Solitary pulmonary nodule [facility] Diagnosis Encounter for annual physical exam- Primary Screening for depression Encounter for screening mammogram for malignant neoplasm of breast Other screening mammogram Screening for colon cancer Special screening for malignant neoplasms, colon Cervicogenic headache Headache Panlobular emphysema Other emphysema Vitamin D deficiency Unspecified vitamin D deficiency Current smoker Tobacco use disorder Mixed hyperlipidemia [facility] Diagnosis Cervicogenic headache- Primary Headache Headache, chronic daily Headache [facility] Diagnosis Headache, chronic daily Headache [facility] Diagnosis Right foot pain Pain in limb [facility] Diagnosis Cervicogenic headache- Primary Headache Right foot pain Pain in limb 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 Right foot pain Pain in limb Right foot pain Pain in limb [facility] Diagnosis History of chondrosarcoma Osteoporosis without current pathological fracture, unspecified osteoporosis type Pain in right foot Pain in limb Chronic pain of right heel [facility] Diagnosis DDD (degenerative disc disease), cervical- Primary Degeneration of cervical intervertebral disc Cervical radiculopathy Brachial neuritis or radiculitis nos [facility] Diagnosis Encounter for screening mammogram for malignant neoplasm of breast Other screening mammogram [facility] Diagnosis Right foot pain Pain in limb [facility] Diagnosis Panlobular emphysema Other emphysema Lung nodule Solitary pulmonary nodule [facility] Diagnosis History of chondrosarcoma Osteoporosis without current pathological fracture, unspecified osteoporosis type Pain in right foot Pain in limb Chronic pain of right heel Acute right ankle pain [facility] Diagnosis DDD (degenerative disc disease), cervical- Primary Degeneration of cervical intervertebral disc Cervical radiculopathy Brachial neuritis or radiculitis nos [facility] Diagnosis DDD (degenerative disc disease), cervical Degeneration of cervical intervertebral disc [facility] Diagnosis Callus of foot- Primary Corns and callosities [facility] Diagnosis Screening for lung cancer Personal history of tobacco use, presenting hazards to health [facility] Diagnosis Personal history of tobacco use, presenting hazards to health- Primary Screening for lung cancer [facility] Diagnosis Hordeolum externum of left lower eyelid- Primary Hordeolum externum Nuclear senile cataract of both eyes History of eye injury Personal history of other injury [facility] [place] [facility] Diagnosis ERRONEOUS ENCOUNTER--DISREGARD [facility] Diagnosis Cervicogenic headache- Primary Headache Panlobular emphysema Other emphysema Chronic pain of right heel Current smoker Tobacco use disorder Mixed hyperlipidemia Need for vaccination Need for prophylactic vaccination and inoculation against unspecified single disease [facility] Diagnosis Encounter for annual physical exam- Primary Screening for depression Current smoker Tobacco use disorder Mixed hyperlipidemia Vitamin D deficiency Unspecified vitamin D deficiency Underweight Hypercalcemia Hyperglycemia Other abnormal glucose [facility] Diagnosis Swelling of left thumb- Primary Swelling of limb [facility] Diagnosis Panlobular emphysema Other emphysema [facility] Diagnosis Nodule of right lung- Primary Solitary pulmonary nodule [facility] Diagnosis Nodule of right lung Solitary pulmonary nodule [facility] Diagnosis Abdominal pain- Primary Abdominal pain, unspecified site Tobacco abuse Tobacco use disorder Abdominal pain Abdominal pain, unspecified site Routine health maintenance Routine general medical examination at a health care facility GERD (gastroesophageal reflux disease) Esophageal reflux Osteoporosis; severe - surgically post-menopausal Osteoporosis, unspecified Chronic obstructive pulmonary disease (COPD) - s/p L pneumonectomy Chronic airway obstruction, not elsewhere classified Elevated LFTs Other abnormal blood chemistry Tobacco abuse Tobacco use disorder Colon cancer screening- Primary Special screening for malignant neoplasms, colon 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 Elevated LFTs Other abnormal blood chemistry Tobacco abuse Tobacco use disorder Osteoporosis Osteoporosis, unspecified Routine health maintenance Routine general medical examination at a health care facility Osteoporosis Osteoporosis, unspecified 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 Mixed hyperlipidemia Panlobular emphysema Other emphysema Elevated LFTs Other abnormal blood chemistry Tobacco abuse Tobacco use disorder Intractable chronic paroxysmal hemicrania Chronic paroxysmal hemicrania Environmental and seasonal allergies Underweight Chronic fatigue Other malaise and fatigue Lipoma of left upper extremity Neuropathic pain Neuralgia, neuritis, and radiculitis, unspecified Other complicated headache syndrome- Primary Mixed hyperlipidemia Osteoporosis Osteoporosis, unspecified Tobacco abuse Tobacco use disorder Underweight Non-seasonal allergic rhinitis due to pollen Chronic pansinusitis Other chronic sinusitis Intractable chronic paroxysmal hemicrania Chronic paroxysmal hemicrania Neuropathic pain Neuralgia, neuritis, and radiculitis, unspecified Tobacco abuse Tobacco use disorder Panlobular emphysema Other emphysema Mixed hyperlipidemia Chronic pain of right heel Panlobular emphysema Other emphysema Mixed hyperlipidemia Chronic nonintractable headache, unspecified headache type Osteoporosis without current pathological fracture, unspecified osteoporosis type Tobacco abuse Tobacco use disorder Elevated LFTs Other abnormal blood chemistry Tick bite of abdomen, subsequent encounter Chronic maxillary sinusitis Ataxia- Primary Lack of coordination Weakness Other malaise and fatigue Hemiplegia affecting left nondominant side, unspecified etiology, unspecified hemiplegia type 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 Chronic low back pain without sciatica, unspecified back pain laterality- Primary Panlobular emphysema Other emphysema Episodic paroxysmal hemicrania, not intractable Episodic paroxysmal hemicrania Tobacco abuse Tobacco use disorder Weakness Other malaise and fatigue Myalgia Mylagia and myositis, unspecified Low vitamin D level Panlobular emphysema Other emphysema Dental caries Unspecified dental caries Tobacco abuse Tobacco use disorder Chronic fatigue Other malaise and fatigue Myalgia Mylagia and myositis, unspecified Chronic paroxysmal hemicrania, not intractable Chronic paroxysmal hemicrania Unintentional weight loss Loss of weight Panlobular emphysema Other emphysema Cervicogenic headache Headache Tobacco abuse Tobacco use disorder Rib pain on left side Chest pain, unspecified Recent unexplained weight loss Pain in right foot Pain in limb History of colon polyps Personal history of colonic polyps Unintentional weight loss Loss of weight Panlobular emphysema Other emphysema Tobacco use Tobacco use disorder Panlobular emphysema Other emphysema History of colon polyps Personal history of colonic polyps Underweight Tobacco abuse Tobacco use disorder Panlobular emphysema Other emphysema Cervicogenic headache Headache Dental caries Unspecified dental caries Tobacco abuse Tobacco use disorder Underweight Cervical cancer screening Screening for malignant neoplasm of the cervix Breast cancer screening Breast screening, unspecified Right upper quadrant abdominal pain Abdominal pain, right upper quadrant Concern about STD in female without diagnosis Person with feared complaint in whom no diagnosis was made Osteoporosis without current pathological fracture, unspecified osteoporosis type Underweight COPD with acute exacerbation Obstructive chronic bronchitis with exacerbation Dental caries Unspecified dental caries Tobacco abuse Tobacco use disorder Low vitamin D level Chronic maxillary sinusitis Tobacco abuse Tobacco use disorder Concern about STD in female without diagnosis Person with feared complaint in whom no diagnosis was made COPD with acute exacerbation Obstructive chronic bronchitis with exacerbation Pain of upper abdomen Abdominal pain, other specified site Underweight Panlobular emphysema Other emphysema Panlobular emphysema Other emphysema Underweight Cervical cancer screening Screening for malignant neoplasm of the cervix Breast cancer screening Breast screening, unspecified Osteoporosis without current pathological fracture, unspecified osteoporosis type Chronic pain of right heel Pain of upper abdomen Abdominal pain, other specified site Vitamin D deficiency Unspecified vitamin D deficiency Panlobular emphysema Other emphysema Chronic pain of right heel Healthcare maintenance Routine general medical examination at a health care facility Underweight Pain of upper abdomen Abdominal pain, other specified site Tobacco abuse Tobacco use disorder Tobacco abuse Tobacco use disorder Healthcare maintenance Routine general medical examination at a health care facility Tick bite of abdomen, subsequent encounter Panlobular emphysema Other emphysema Nodule of skin of left forearm Right upper quadrant abdominal pain Abdominal pain, right upper quadrant Mass of left forearm Vitamin D deficiency Unspecified vitamin D deficiency Underweight Elevated fasting glucose Impaired fasting glucose Panlobular emphysema Other emphysema Elevated fasting glucose Impaired fasting glucose Mass of left forearm Tobacco abuse Tobacco use disorder Trigger finger of left thumb- Primary [facility] Diagnosis Abdominal pain- Primary Abdominal pain, unspecified site Tobacco abuse Tobacco use disorder Abdominal pain Abdominal pain, unspecified site Routine health maintenance Routine general medical examination at a health care facility GERD (gastroesophageal reflux disease) Esophageal reflux Osteoporosis; severe - surgically post-menopausal Osteoporosis, unspecified Chronic obstructive pulmonary disease (COPD) - s/p L pneumonectomy Chronic airway obstruction, not elsewhere classified Elevated LFTs Other abnormal blood chemistry Tobacco abuse Tobacco use disorder Colon cancer screening- Primary Special screening for malignant neoplasms, colon 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 Elevated LFTs Other abnormal blood chemistry Tobacco abuse Tobacco use disorder Osteoporosis Osteoporosis, unspecified Routine health maintenance Routine general medical examination at a health care facility Osteoporosis Osteoporosis, unspecified 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 Mixed hyperlipidemia Panlobular emphysema Other emphysema Elevated LFTs Other abnormal blood chemistry Tobacco abuse Tobacco use disorder Intractable chronic paroxysmal hemicrania Chronic paroxysmal hemicrania Environmental and seasonal allergies Underweight Chronic fatigue Other malaise and fatigue Lipoma of left upper extremity Neuropathic pain Neuralgia, neuritis, and radiculitis, unspecified Other complicated headache syndrome- Primary Mixed hyperlipidemia Osteoporosis Osteoporosis, unspecified Tobacco abuse Tobacco use disorder Underweight Non-seasonal allergic rhinitis due to pollen Chronic pansinusitis Other chronic sinusitis Intractable chronic paroxysmal hemicrania Chronic paroxysmal hemicrania Neuropathic pain Neuralgia, neuritis, and radiculitis, unspecified Tobacco abuse Tobacco use disorder Panlobular emphysema Other emphysema Mixed hyperlipidemia Chronic pain of right heel Panlobular emphysema Other emphysema Mixed hyperlipidemia Chronic nonintractable headache, unspecified headache type Osteoporosis without current pathological fracture, unspecified osteoporosis type Tobacco abuse Tobacco use disorder Elevated LFTs Other abnormal blood chemistry Tick bite of abdomen, subsequent encounter Chronic maxillary sinusitis Ataxia- Primary Lack of coordination Weakness Other malaise and fatigue Hemiplegia affecting left nondominant side, unspecified etiology, unspecified hemiplegia type 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 Chronic low back pain without sciatica, unspecified back pain laterality- Primary Panlobular emphysema Other emphysema Episodic paroxysmal hemicrania, not intractable Episodic paroxysmal hemicrania Tobacco abuse Tobacco use disorder Weakness Other malaise and fatigue Myalgia Mylagia and myositis, unspecified Low vitamin D level Panlobular emphysema Other emphysema Dental caries Unspecified dental caries Tobacco abuse Tobacco use disorder Chronic fatigue Other malaise and fatigue Myalgia Mylagia and myositis, unspecified Chronic paroxysmal hemicrania, not intractable Chronic paroxysmal hemicrania Unintentional weight loss Loss of weight Panlobular emphysema Other emphysema Cervicogenic headache Headache Tobacco abuse Tobacco use disorder Rib pain on left side Chest pain, unspecified Recent unexplained weight loss Pain in right foot Pain in limb History of colon polyps Personal history of colonic polyps Unintentional weight loss Loss of weight Panlobular emphysema Other emphysema Tobacco use Tobacco use disorder Panlobular emphysema Other emphysema History of colon polyps Personal history of colonic polyps Underweight Tobacco abuse Tobacco use disorder Panlobular emphysema Other emphysema Cervicogenic headache Headache Dental caries Unspecified dental caries Tobacco abuse Tobacco use disorder Underweight Cervical cancer screening Screening for malignant neoplasm of the cervix Breast cancer screening Breast screening, unspecified Right upper quadrant abdominal pain Abdominal pain, right upper quadrant Concern about STD in female without diagnosis Person with feared complaint in whom no diagnosis was made Osteoporosis without current pathological fracture, unspecified osteoporosis type Underweight COPD with acute exacerbation Obstructive chronic bronchitis with exacerbation Dental caries Unspecified dental caries Tobacco abuse Tobacco use disorder Low vitamin D level Chronic maxillary sinusitis Tobacco abuse Tobacco use disorder Concern about STD in female without diagnosis Person with feared complaint in whom no diagnosis was made COPD with acute exacerbation Obstructive chronic bronchitis with exacerbation Pain of upper abdomen Abdominal pain, other specified site Underweight Panlobular emphysema Other emphysema Panlobular emphysema Other emphysema Underweight Cervical cancer screening Screening for malignant neoplasm of the cervix Breast cancer screening Breast screening, unspecified Osteoporosis without current pathological fracture, unspecified osteoporosis type Chronic pain of right heel Pain of upper abdomen Abdominal pain, other specified site Vitamin D deficiency Unspecified vitamin D deficiency Panlobular emphysema Other emphysema Chronic pain of right heel Healthcare maintenance Routine general medical examination at a health care facility Underweight Pain of upper abdomen Abdominal pain, other specified site Tobacco abuse Tobacco use disorder Tobacco abuse Tobacco use disorder Healthcare maintenance Routine general medical examination at a health care facility Tick bite of abdomen, subsequent encounter Panlobular emphysema Other emphysema Nodule of skin of left forearm Right upper quadrant abdominal pain Abdominal pain, right upper quadrant Mass of left forearm Vitamin D deficiency Unspecified vitamin D deficiency Underweight Elevated fasting glucose Impaired fasting glucose Panlobular emphysema Other emphysema Elevated fasting glucose Impaired fasting glucose Mass of left forearm Tobacco abuse Tobacco use disorder Encounter for annual physical exam- Primary Screening for depression Panlobular emphysema Other emphysema Current smoker Tobacco use disorder Screening for colon cancer Special screening for malignant neoplasms, colon Screening mammogram for breast cancer Screening for hyperlipidemia Screening for lipoid disorders Vitamin D deficiency Unspecified vitamin D deficiency Nausea Nausea alone Healthcare maintenance Routine general medical examination at a health care facility [facility] Diagnosis Abdominal pain- Primary Abdominal pain, unspecified site Tobacco abuse Tobacco use disorder Abdominal pain Abdominal pain, unspecified site Routine health maintenance Routine general medical examination at a health care facility GERD (gastroesophageal reflux disease) Esophageal reflux Osteoporosis; severe - surgically post-menopausal Osteoporosis, unspecified Chronic obstructive pulmonary disease (COPD) - s/p L pneumonectomy Chronic airway obstruction, not elsewhere classified Elevated LFTs Other abnormal blood chemistry Tobacco abuse Tobacco use disorder Colon cancer screening- Primary Special screening for malignant neoplasms, colon 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 Elevated LFTs Other abnormal blood chemistry Tobacco abuse Tobacco use disorder Osteoporosis Osteoporosis, unspecified Routine health maintenance Routine general medical examination at a health care facility Osteoporosis Osteoporosis, unspecified 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 Mixed hyperlipidemia Panlobular emphysema Other emphysema Elevated LFTs Other abnormal blood chemistry Tobacco abuse Tobacco use disorder Intractable chronic paroxysmal hemicrania Chronic paroxysmal hemicrania Environmental and seasonal allergies Underweight Chronic fatigue Other malaise and fatigue Lipoma of left upper extremity Neuropathic pain Neuralgia, neuritis, and radiculitis, unspecified Other complicated headache syndrome- Primary Mixed hyperlipidemia Osteoporosis Osteoporosis, unspecified Tobacco abuse Tobacco use disorder Underweight Non-seasonal allergic rhinitis due to pollen Chronic pansinusitis Other chronic sinusitis Intractable chronic paroxysmal hemicrania Chronic paroxysmal hemicrania Neuropathic pain Neuralgia, neuritis, and radiculitis, unspecified Tobacco abuse Tobacco use disorder Panlobular emphysema Other emphysema Mixed hyperlipidemia Chronic pain of right heel Panlobular emphysema Other emphysema Mixed hyperlipidemia Chronic nonintractable headache, unspecified headache type Osteoporosis without current pathological fracture, unspecified osteoporosis type Tobacco abuse Tobacco use disorder Elevated LFTs Other abnormal blood chemistry Tick bite of abdomen, subsequent encounter Chronic maxillary sinusitis Ataxia- Primary Lack of coordination Weakness Other malaise and fatigue Hemiplegia affecting left nondominant side, unspecified etiology, unspecified hemiplegia type 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 Chronic low back pain without sciatica, unspecified back pain laterality- Primary Panlobular emphysema Other emphysema Episodic paroxysmal hemicrania, not intractable Episodic paroxysmal hemicrania Tobacco abuse Tobacco use disorder Weakness Other malaise and fatigue Myalgia Mylagia and myositis, unspecified Low vitamin D level Panlobular emphysema Other emphysema Dental caries Unspecified dental caries Tobacco abuse Tobacco use disorder Chronic fatigue Other malaise and fatigue Myalgia Mylagia and myositis, unspecified Chronic paroxysmal hemicrania, not intractable Chronic paroxysmal hemicrania Unintentional weight loss Loss of weight Panlobular emphysema Other emphysema Cervicogenic headache Headache Tobacco abuse Tobacco use disorder Rib pain on left side Chest pain, unspecified Recent unexplained weight loss Pain in right foot Pain in limb History of colon polyps Personal history of colonic polyps Unintentional weight loss Loss of weight Panlobular emphysema Other emphysema Tobacco use Tobacco use disorder Panlobular emphysema Other emphysema History of colon polyps Personal history of colonic polyps Underweight Tobacco abuse Tobacco use disorder Panlobular emphysema Other emphysema Cervicogenic headache Headache Dental caries Unspecified dental caries Tobacco abuse Tobacco use disorder Underweight Cervical cancer screening Screening for malignant neoplasm of the cervix Breast cancer screening Breast screening, unspecified Right upper quadrant abdominal pain Abdominal pain, right upper quadrant Concern about STD in female without diagnosis Person with feared complaint in whom no diagnosis was made Osteoporosis without current pathological fracture, unspecified osteoporosis type Underweight COPD with acute exacerbation Obstructive chronic bronchitis with exacerbation Dental caries Unspecified dental caries Tobacco abuse Tobacco use disorder Low vitamin D level Chronic maxillary sinusitis Tobacco abuse Tobacco use disorder Concern about STD in female without diagnosis Person with feared complaint in whom no diagnosis was made COPD with acute exacerbation Obstructive chronic bronchitis with exacerbation Pain of upper abdomen Abdominal pain, other specified site Underweight Panlobular emphysema Other emphysema Panlobular emphysema Other emphysema Underweight Cervical cancer screening Screening for malignant neoplasm of the cervix Breast cancer screening Breast screening, unspecified Osteoporosis without current pathological fracture, unspecified osteoporosis type Chronic pain of right heel Pain of upper abdomen Abdominal pain, other specified site Vitamin D deficiency Unspecified vitamin D deficiency Panlobular emphysema Other emphysema Chronic pain of right heel Healthcare maintenance Routine general medical examination at a health care facility Underweight Pain of upper abdomen Abdominal pain, other specified site Tobacco abuse Tobacco use disorder Tobacco abuse Tobacco use disorder Healthcare maintenance Routine general medical examination at a health care facility Tick bite of abdomen, subsequent encounter Panlobular emphysema Other emphysema Nodule of skin of left forearm Right upper quadrant abdominal pain Abdominal pain, right upper quadrant Mass of left forearm Vitamin D deficiency Unspecified vitamin D deficiency Underweight Elevated fasting glucose Impaired fasting glucose Panlobular emphysema Other emphysema Elevated fasting glucose Impaired fasting glucose Mass of left forearm Tobacco abuse Tobacco use disorder Pulmonary nodule- Primary Solitary pulmonary nodule Panlobular emphysema Other emphysema Personal history of tobacco use, presenting hazards to health [facility] Diagnosis Abdominal pain- Primary Abdominal pain, unspecified site Tobacco abuse Tobacco use disorder Abdominal pain Abdominal pain, unspecified site Routine health maintenance Routine general medical examination at a health care facility GERD (gastroesophageal reflux disease) Esophageal reflux Osteoporosis; severe - surgically post-menopausal Osteoporosis, unspecified Chronic obstructive pulmonary disease (COPD) - s/p L pneumonectomy Chronic airway obstruction, not elsewhere classified Elevated LFTs Other abnormal blood chemistry Tobacco abuse Tobacco use disorder Colon cancer screening- Primary Special screening for malignant neoplasms, colon 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 Elevated LFTs Other abnormal blood chemistry Tobacco abuse Tobacco use disorder Osteoporosis Osteoporosis, unspecified Routine health maintenance Routine general medical examination at a health care facility Osteoporosis Osteoporosis, unspecified 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 Mixed hyperlipidemia Panlobular emphysema Other emphysema Elevated LFTs Other abnormal blood chemistry Tobacco abuse Tobacco use disorder Intractable chronic paroxysmal hemicrania Chronic paroxysmal hemicrania Environmental and seasonal allergies Underweight Chronic fatigue Other malaise and fatigue Lipoma of left upper extremity Neuropathic pain Neuralgia, neuritis, and radiculitis, unspecified Other complicated headache syndrome- Primary Mixed hyperlipidemia Osteoporosis Osteoporosis, unspecified Tobacco abuse Tobacco use disorder Underweight Non-seasonal allergic rhinitis due to pollen Chronic pansinusitis Other chronic sinusitis Intractable chronic paroxysmal hemicrania Chronic paroxysmal hemicrania Neuropathic pain Neuralgia, neuritis, and radiculitis, unspecified Tobacco abuse Tobacco use disorder Panlobular emphysema Other emphysema Mixed hyperlipidemia Chronic pain of right heel Panlobular emphysema Other emphysema Mixed hyperlipidemia Chronic nonintractable headache, unspecified headache type Osteoporosis without current pathological fracture, unspecified osteoporosis type Tobacco abuse Tobacco use disorder Elevated LFTs Other abnormal blood chemistry Tick bite of abdomen, subsequent encounter Chronic maxillary sinusitis Ataxia- Primary Lack of coordination Weakness Other malaise and fatigue Hemiplegia affecting left nondominant side, unspecified etiology, unspecified hemiplegia type 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 Chronic low back pain without sciatica, unspecified back pain laterality- Primary Panlobular emphysema Other emphysema Episodic paroxysmal hemicrania, not intractable Episodic paroxysmal hemicrania Tobacco abuse Tobacco use disorder Weakness Other malaise and fatigue Myalgia Mylagia and myositis, unspecified Low vitamin D level Panlobular emphysema Other emphysema Dental caries Unspecified dental caries Tobacco abuse Tobacco use disorder Chronic fatigue Other malaise and fatigue Myalgia Mylagia and myositis, unspecified Chronic paroxysmal hemicrania, not intractable Chronic paroxysmal hemicrania Unintentional weight loss Loss of weight Panlobular emphysema Other emphysema Cervicogenic headache Headache Tobacco abuse Tobacco use disorder Rib pain on left side Chest pain, unspecified Recent unexplained weight loss Pain in right foot Pain in limb History of colon polyps Personal history of colonic polyps Unintentional weight loss Loss of weight Panlobular emphysema Other emphysema Tobacco use Tobacco use disorder Panlobular emphysema Other emphysema History of colon polyps Personal history of colonic polyps Underweight Tobacco abuse Tobacco use disorder Panlobular emphysema Other emphysema Cervicogenic headache Headache Dental caries Unspecified dental caries Tobacco abuse Tobacco use disorder Underweight Cervical cancer screening Screening for malignant neoplasm of the cervix Breast cancer screening Breast screening, unspecified Right upper quadrant abdominal pain Abdominal pain, right upper quadrant Concern about STD in female without diagnosis Person with feared complaint in whom no diagnosis was made Osteoporosis without current pathological fracture, unspecified osteoporosis type Underweight COPD with acute exacerbation Obstructive chronic bronchitis with exacerbation Dental caries Unspecified dental caries Tobacco abuse Tobacco use disorder Low vitamin D level Chronic maxillary sinusitis Tobacco abuse Tobacco use disorder Concern about STD in female without diagnosis Person with feared complaint in whom no diagnosis was made COPD with acute exacerbation Obstructive chronic bronchitis with exacerbation Pain of upper abdomen Abdominal pain, other specified site Underweight Panlobular emphysema Other emphysema Panlobular emphysema Other emphysema Underweight Cervical cancer screening Screening for malignant neoplasm of the cervix Breast cancer screening Breast screening, unspecified Osteoporosis without current pathological fracture, unspecified osteoporosis type Chronic pain of right heel Pain of upper abdomen Abdominal pain, other specified site Vitamin D deficiency Unspecified vitamin D deficiency Panlobular emphysema Other emphysema Chronic pain of right heel Healthcare maintenance Routine general medical examination at a health care facility Underweight Pain of upper abdomen Abdominal pain, other specified site Tobacco abuse Tobacco use disorder Tobacco abuse Tobacco use disorder Healthcare maintenance Routine general medical examination at a health care facility Tick bite of abdomen, subsequent encounter Panlobular emphysema Other emphysema Nodule of skin of left forearm Right upper quadrant abdominal pain Abdominal pain, right upper quadrant Mass of left forearm Vitamin D deficiency Unspecified vitamin D deficiency Underweight Elevated fasting glucose Impaired fasting glucose Panlobular emphysema Other emphysema Elevated fasting glucose Impaired fasting glucose Mass of left forearm Tobacco abuse Tobacco use disorder Pulmonary nodule- Primary Solitary pulmonary nodule Nicotine dependence, uncomplicated, unspecified nicotine product type Chronic obstructive pulmonary disease, unspecified COPD type [facility] Diagnosis Abdominal pain- Primary Abdominal pain, unspecified site Tobacco abuse Tobacco use disorder Abdominal pain Abdominal pain, unspecified site Routine health maintenance Routine general medical examination at a health care facility GERD (gastroesophageal reflux disease) Esophageal reflux Osteoporosis; severe - surgically post-menopausal Osteoporosis, unspecified Chronic obstructive pulmonary disease (COPD) - s/p L pneumonectomy Chronic airway obstruction, not elsewhere classified Elevated LFTs Other abnormal blood chemistry Tobacco abuse Tobacco use disorder Colon cancer screening- Primary Special screening for malignant neoplasms, colon 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 Elevated LFTs Other abnormal blood chemistry Tobacco abuse Tobacco use disorder Osteoporosis Osteoporosis, unspecified Routine health maintenance Routine general medical examination at a health care facility Osteoporosis Osteoporosis, unspecified 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 Mixed hyperlipidemia Panlobular emphysema Other emphysema Elevated LFTs Other abnormal blood chemistry Tobacco abuse Tobacco use disorder Intractable chronic paroxysmal hemicrania Chronic paroxysmal hemicrania Environmental and seasonal allergies Underweight Chronic fatigue Other malaise and fatigue Lipoma of left upper extremity Neuropathic pain Neuralgia, neuritis, and radiculitis, unspecified Other complicated headache syndrome- Primary Mixed hyperlipidemia Osteoporosis Osteoporosis, unspecified Tobacco abuse Tobacco use disorder Underweight Non-seasonal allergic rhinitis due to pollen Chronic pansinusitis Other chronic sinusitis Intractable chronic paroxysmal hemicrania Chronic paroxysmal hemicrania Neuropathic pain Neuralgia, neuritis, and radiculitis, unspecified Tobacco abuse Tobacco use disorder Panlobular emphysema Other emphysema Mixed hyperlipidemia Chronic pain of right heel Panlobular emphysema Other emphysema Mixed hyperlipidemia Chronic nonintractable headache, unspecified headache type Osteoporosis without current pathological fracture, unspecified osteoporosis type Tobacco abuse Tobacco use disorder Elevated LFTs Other abnormal blood chemistry Tick bite of abdomen, subsequent encounter Chronic maxillary sinusitis Ataxia- Primary Lack of coordination Weakness Other malaise and fatigue Hemiplegia affecting left nondominant side, unspecified etiology, unspecified hemiplegia type 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 Chronic low back pain without sciatica, unspecified back pain laterality- Primary Panlobular emphysema Other emphysema Episodic paroxysmal hemicrania, not intractable Episodic paroxysmal hemicrania Tobacco abuse Tobacco use disorder Weakness Other malaise and fatigue Myalgia Mylagia and myositis, unspecified Low vitamin D level Panlobular emphysema Other emphysema Dental caries Unspecified dental caries Tobacco abuse Tobacco use disorder Chronic fatigue Other malaise and fatigue Myalgia Mylagia and myositis, unspecified Chronic paroxysmal hemicrania, not intractable Chronic paroxysmal hemicrania Unintentional weight loss Loss of weight Panlobular emphysema Other emphysema Cervicogenic headache Headache Tobacco abuse Tobacco use disorder Rib pain on left side Chest pain, unspecified Recent unexplained weight loss Pain in right foot Pain in limb History of colon polyps Personal history of colonic polyps Unintentional weight loss Loss of weight Panlobular emphysema Other emphysema Tobacco use Tobacco use disorder Panlobular emphysema Other emphysema History of colon polyps Personal history of colonic polyps Underweight Tobacco abuse Tobacco use disorder Panlobular emphysema Other emphysema Cervicogenic headache Headache Dental caries Unspecified dental caries Tobacco abuse Tobacco use disorder Underweight Cervical cancer screening Screening for malignant neoplasm of the cervix Breast cancer screening Breast screening, unspecified Right upper quadrant abdominal pain Abdominal pain, right upper quadrant Concern about STD in female without diagnosis Person with feared complaint in whom no diagnosis was made Osteoporosis without current pathological fracture, unspecified osteoporosis type Underweight COPD with acute exacerbation Obstructive chronic bronchitis with exacerbation Dental caries Unspecified dental caries Tobacco abuse Tobacco use disorder Low vitamin D level Chronic maxillary sinusitis Tobacco abuse Tobacco use disorder Concern about STD in female without diagnosis Person with feared complaint in whom no diagnosis was made COPD with acute exacerbation Obstructive chronic bronchitis with exacerbation Pain of upper abdomen Abdominal pain, other specified site Underweight Panlobular emphysema Other emphysema Panlobular emphysema Other emphysema Underweight Cervical cancer screening Screening for malignant neoplasm of the cervix Breast cancer screening Breast screening, unspecified Osteoporosis without current pathological fracture, unspecified osteoporosis type Chronic pain of right heel Pain of upper abdomen Abdominal pain, other specified site Vitamin D deficiency Unspecified vitamin D deficiency Panlobular emphysema Other emphysema Chronic pain of right heel Healthcare maintenance Routine general medical examination at a health care facility Underweight Pain of upper abdomen Abdominal pain, other specified site Tobacco abuse Tobacco use disorder Tobacco abuse Tobacco use disorder Healthcare maintenance Routine general medical examination at a health care facility Tick bite of abdomen, subsequent encounter Panlobular emphysema Other emphysema Nodule of skin of left forearm Right upper quadrant abdominal pain Abdominal pain, right upper quadrant Mass of left forearm Vitamin D deficiency Unspecified vitamin D deficiency Underweight Elevated fasting glucose Impaired fasting glucose Panlobular emphysema Other emphysema Elevated fasting glucose Impaired fasting glucose Mass of left forearm Tobacco abuse Tobacco use disorder Pulmonary nodule Solitary pulmonary nodule [facility] Diagnosis Abdominal pain- Primary Abdominal pain, unspecified site Tobacco abuse Tobacco use disorder Abdominal pain Abdominal pain, unspecified site Routine health maintenance Routine general medical examination at a health care facility GERD (gastroesophageal reflux disease) Esophageal reflux Osteoporosis; severe - surgically post-menopausal Osteoporosis, unspecified Chronic obstructive pulmonary disease (COPD) - s/p L pneumonectomy Chronic airway obstruction, not elsewhere classified Elevated LFTs Other abnormal blood chemistry Tobacco abuse Tobacco use disorder Colon cancer screening- Primary Special screening for malignant neoplasms, colon 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 Elevated LFTs Other abnormal blood chemistry Tobacco abuse Tobacco use disorder Osteoporosis Osteoporosis, unspecified Routine health maintenance Routine general medical examination at a health care facility Osteoporosis Osteoporosis, unspecified 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 Mixed hyperlipidemia Panlobular emphysema Other emphysema Elevated LFTs Other abnormal blood chemistry Tobacco abuse Tobacco use disorder Intractable chronic paroxysmal hemicrania Chronic paroxysmal hemicrania Environmental and seasonal allergies Underweight Chronic fatigue Other malaise and fatigue Lipoma of left upper extremity Neuropathic pain Neuralgia, neuritis, and radiculitis, unspecified Other complicated headache syndrome- Primary Mixed hyperlipidemia Osteoporosis Osteoporosis, unspecified Tobacco abuse Tobacco use disorder Underweight Non-seasonal allergic rhinitis due to pollen Chronic pansinusitis Other chronic sinusitis Intractable chronic paroxysmal hemicrania Chronic paroxysmal hemicrania Neuropathic pain Neuralgia, neuritis, and radiculitis, unspecified Tobacco abuse Tobacco use disorder Panlobular emphysema Other emphysema Mixed hyperlipidemia Chronic pain of right heel Panlobular emphysema Other emphysema Mixed hyperlipidemia Chronic nonintractable headache, unspecified headache type Osteoporosis without current pathological fracture, unspecified osteoporosis type Tobacco abuse Tobacco use disorder Elevated LFTs Other abnormal blood chemistry Tick bite of abdomen, subsequent encounter Chronic maxillary sinusitis Ataxia- Primary Lack of coordination Weakness Other malaise and fatigue Hemiplegia affecting left nondominant side, unspecified etiology, unspecified hemiplegia type 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 Chronic low back pain without sciatica, unspecified back pain laterality- Primary Panlobular emphysema Other emphysema Episodic paroxysmal hemicrania, not intractable Episodic paroxysmal hemicrania Tobacco abuse Tobacco use disorder Weakness Other malaise and fatigue Myalgia Mylagia and myositis, unspecified Low vitamin D level Panlobular emphysema Other emphysema Dental caries Unspecified dental caries Tobacco abuse Tobacco use disorder Chronic fatigue Other malaise and fatigue Myalgia Mylagia and myositis, unspecified Chronic paroxysmal hemicrania, not intractable Chronic paroxysmal hemicrania Unintentional weight loss Loss of weight Panlobular emphysema Other emphysema Cervicogenic headache Headache Tobacco abuse Tobacco use disorder Rib pain on left side Chest pain, unspecified Recent unexplained weight loss Pain in right foot Pain in limb History of colon polyps Personal history of colonic polyps Unintentional weight loss Loss of weight Panlobular emphysema Other emphysema Tobacco use Tobacco use disorder Panlobular emphysema Other emphysema History of colon polyps Personal history of colonic polyps Underweight Tobacco abuse Tobacco use disorder Panlobular emphysema Other emphysema Cervicogenic headache Headache Dental caries Unspecified dental caries Tobacco abuse Tobacco use disorder Underweight Cervical cancer screening Screening for malignant neoplasm of the cervix Breast cancer screening Breast screening, unspecified Right upper quadrant abdominal pain Abdominal pain, right upper quadrant Concern about STD in female without diagnosis Person with feared complaint in whom no diagnosis was made Osteoporosis without current pathological fracture, unspecified osteoporosis type Underweight COPD with acute exacerbation Obstructive chronic bronchitis with exacerbation Dental caries Unspecified dental caries Tobacco abuse Tobacco use disorder Low vitamin D level Chronic maxillary sinusitis Tobacco abuse Tobacco use disorder Concern about STD in female without diagnosis Person with feared complaint in whom no diagnosis was made COPD with acute exacerbation Obstructive chronic bronchitis with exacerbation Pain of upper abdomen Abdominal pain, other specified site Underweight Panlobular emphysema Other emphysema Panlobular emphysema Other emphysema Underweight Cervical cancer screening Screening for malignant neoplasm of the cervix Breast cancer screening Breast screening, unspecified Osteoporosis without current pathological fracture, unspecified osteoporosis type Chronic pain of right heel Pain of upper abdomen Abdominal pain, other specified site Vitamin D deficiency Unspecified vitamin D deficiency Panlobular emphysema Other emphysema Chronic pain of right heel Healthcare maintenance Routine general medical examination at a health care facility Underweight Pain of upper abdomen Abdominal pain, other specified site Tobacco abuse Tobacco use disorder Tobacco abuse Tobacco use disorder Healthcare maintenance Routine general medical examination at a health care facility Tick bite of abdomen, subsequent encounter Panlobular emphysema Other emphysema Nodule of skin of left forearm Right upper quadrant abdominal pain Abdominal pain, right upper quadrant Mass of left forearm Vitamin D deficiency Unspecified vitamin D deficiency Underweight Elevated fasting glucose Impaired fasting glucose Panlobular emphysema Other emphysema Elevated fasting glucose Impaired fasting glucose Mass of left forearm Tobacco abuse Tobacco use disorder Pulmonary nodule Solitary pulmonary nodule [facility] Diagnosis Abdominal pain- Primary Abdominal pain, unspecified site Tobacco abuse Tobacco use disorder Abdominal pain Abdominal pain, unspecified site Routine health maintenance Routine general medical examination at a health care facility GERD (gastroesophageal reflux disease) Esophageal reflux Osteoporosis; severe - surgically post-menopausal Osteoporosis, unspecified Chronic obstructive pulmonary disease (COPD) - s/p L pneumonectomy Chronic airway obstruction, not elsewhere classified Elevated LFTs Other abnormal blood chemistry Tobacco abuse Tobacco use disorder Colon cancer screening- Primary Special screening for malignant neoplasms, colon 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 Elevated LFTs Other abnormal blood chemistry Tobacco abuse Tobacco use disorder Osteoporosis Osteoporosis, unspecified Routine health maintenance Routine general medical examination at a health care facility Osteoporosis Osteoporosis, unspecified 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 Mixed hyperlipidemia Panlobular emphysema Other emphysema Elevated LFTs Other abnormal blood chemistry Tobacco abuse Tobacco use disorder Intractable chronic paroxysmal hemicrania Chronic paroxysmal hemicrania Environmental and seasonal allergies Underweight Chronic fatigue Other malaise and fatigue Lipoma of left upper extremity Neuropathic pain Neuralgia, neuritis, and radiculitis, unspecified Other complicated headache syndrome- Primary Mixed hyperlipidemia Osteoporosis Osteoporosis, unspecified Tobacco abuse Tobacco use disorder Underweight Non-seasonal allergic rhinitis due to pollen Chronic pansinusitis Other chronic sinusitis Intractable chronic paroxysmal hemicrania Chronic paroxysmal hemicrania Neuropathic pain Neuralgia, neuritis, and radiculitis, unspecified Tobacco abuse Tobacco use disorder Panlobular emphysema Other emphysema Mixed hyperlipidemia Chronic pain of right heel Panlobular emphysema Other emphysema Mixed hyperlipidemia Chronic nonintractable headache, unspecified headache type Osteoporosis without current pathological fracture, unspecified osteoporosis type Tobacco abuse Tobacco use disorder Elevated LFTs Other abnormal blood chemistry Tick bite of abdomen, subsequent encounter Chronic maxillary sinusitis Ataxia- Primary Lack of coordination Weakness Other malaise and fatigue Hemiplegia affecting left nondominant side, unspecified etiology, unspecified hemiplegia type 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 Chronic low back pain without sciatica, unspecified back pain laterality- Primary Panlobular emphysema Other emphysema Episodic paroxysmal hemicrania, not intractable Episodic paroxysmal hemicrania Tobacco abuse Tobacco use disorder Weakness Other malaise and fatigue Myalgia Mylagia and myositis, unspecified Low vitamin D level Panlobular emphysema Other emphysema Dental caries Unspecified dental caries Tobacco abuse Tobacco use disorder Chronic fatigue Other malaise and fatigue Myalgia Mylagia and myositis, unspecified Chronic paroxysmal hemicrania, not intractable Chronic paroxysmal hemicrania Unintentional weight loss Loss of weight Panlobular emphysema Other emphysema Cervicogenic headache Headache Tobacco abuse Tobacco use disorder Rib pain on left side Chest pain, unspecified Recent unexplained weight loss Pain in right foot Pain in limb History of colon polyps Personal history of colonic polyps Unintentional weight loss Loss of weight Panlobular emphysema Other emphysema Tobacco use Tobacco use disorder Panlobular emphysema Other emphysema History of colon polyps Personal history of colonic polyps Underweight Tobacco abuse Tobacco use disorder Panlobular emphysema Other emphysema Cervicogenic headache Headache Dental caries Unspecified dental caries Tobacco abuse Tobacco use disorder Underweight Cervical cancer screening Screening for malignant neoplasm of the cervix Breast cancer screening Breast screening, unspecified Right upper quadrant abdominal pain Abdominal pain, right upper quadrant Concern about STD in female without diagnosis Person with feared complaint in whom no diagnosis was made Osteoporosis without current pathological fracture, unspecified osteoporosis type Underweight COPD with acute exacerbation Obstructive chronic bronchitis with exacerbation Dental caries Unspecified dental caries Tobacco abuse Tobacco use disorder Low vitamin D level Chronic maxillary sinusitis Tobacco abuse Tobacco use disorder Concern about STD in female without diagnosis Person with feared complaint in whom no diagnosis was made COPD with acute exacerbation Obstructive chronic bronchitis with exacerbation Pain of upper abdomen Abdominal pain, other specified site Underweight Panlobular emphysema Other emphysema Panlobular emphysema Other emphysema Underweight Cervical cancer screening Screening for malignant neoplasm of the cervix Breast cancer screening Breast screening, unspecified Osteoporosis without current pathological fracture, unspecified osteoporosis type Chronic pain of right heel Pain of upper abdomen Abdominal pain, other specified site Vitamin D deficiency Unspecified vitamin D deficiency Panlobular emphysema Other emphysema Chronic pain of right heel Healthcare maintenance Routine general medical examination at a health care facility Underweight Pain of upper abdomen Abdominal pain, other specified site Tobacco abuse Tobacco use disorder Tobacco abuse Tobacco use disorder Healthcare maintenance Routine general medical examination at a health care facility Tick bite of abdomen, subsequent encounter Panlobular emphysema Other emphysema Nodule of skin of left forearm Right upper quadrant abdominal pain Abdominal pain, right upper quadrant Mass of left forearm Vitamin D deficiency Unspecified vitamin D deficiency Underweight Elevated fasting glucose Impaired fasting glucose Panlobular emphysema Other emphysema Elevated fasting glucose Impaired fasting glucose Mass of left forearm Tobacco abuse Tobacco use disorder Nicotine dependence, uncomplicated, unspecified nicotine product type [facility] Diagnosis Abdominal pain- Primary Abdominal pain, unspecified site Tobacco abuse Tobacco use disorder Abdominal pain Abdominal pain, unspecified site Routine health maintenance Routine general medical examination at a health care facility GERD (gastroesophageal reflux disease) Esophageal reflux Osteoporosis; severe - surgically post-menopausal Osteoporosis, unspecified Chronic obstructive pulmonary disease (COPD) - s/p L pneumonectomy Chronic airway obstruction, not elsewhere classified Elevated LFTs Other abnormal blood chemistry Tobacco abuse Tobacco use disorder Colon cancer screening- Primary Special screening for malignant neoplasms, colon 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 Elevated LFTs Other abnormal blood chemistry Tobacco abuse Tobacco use disorder Osteoporosis Osteoporosis, unspecified Routine health maintenance Routine general medical examination at a health care facility Osteoporosis Osteoporosis, unspecified 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 Mixed hyperlipidemia Panlobular emphysema Other emphysema Elevated LFTs Other abnormal blood chemistry Tobacco abuse Tobacco use disorder Intractable chronic paroxysmal hemicrania Chronic paroxysmal hemicrania Environmental and seasonal allergies Underweight Chronic fatigue Other malaise and fatigue Lipoma of left upper extremity Neuropathic pain Neuralgia, neuritis, and radiculitis, unspecified Other complicated headache syndrome- Primary Mixed hyperlipidemia Osteoporosis Osteoporosis, unspecified Tobacco abuse Tobacco use disorder Underweight Non-seasonal allergic rhinitis due to pollen Chronic pansinusitis Other chronic sinusitis Intractable chronic paroxysmal hemicrania Chronic paroxysmal hemicrania Neuropathic pain Neuralgia, neuritis, and radiculitis, unspecified Tobacco abuse Tobacco use disorder Panlobular emphysema Other emphysema Mixed hyperlipidemia Chronic pain of right heel Panlobular emphysema Other emphysema Mixed hyperlipidemia Chronic nonintractable headache, unspecified headache type Osteoporosis without current pathological fracture, unspecified osteoporosis type Tobacco abuse Tobacco use disorder Elevated LFTs Other abnormal blood chemistry Tick bite of abdomen, subsequent encounter Chronic maxillary sinusitis Ataxia- Primary Lack of coordination Weakness Other malaise and fatigue Hemiplegia affecting left nondominant side, unspecified etiology, unspecified hemiplegia type 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 Chronic low back pain without sciatica, unspecified back pain laterality- Primary Panlobular emphysema Other emphysema Episodic paroxysmal hemicrania, not intractable Episodic paroxysmal hemicrania Tobacco abuse Tobacco use disorder Weakness Other malaise and fatigue Myalgia Mylagia and myositis, unspecified Low vitamin D level Panlobular emphysema Other emphysema Dental caries Unspecified dental caries Tobacco abuse Tobacco use disorder Chronic fatigue Other malaise and fatigue Myalgia Mylagia and myositis, unspecified Chronic paroxysmal hemicrania, not intractable Chronic paroxysmal hemicrania Unintentional weight loss Loss of weight Panlobular emphysema Other emphysema Cervicogenic headache Headache Tobacco abuse Tobacco use disorder Rib pain on left side Chest pain, unspecified Recent unexplained weight loss Pain in right foot Pain in limb History of colon polyps Personal history of colonic polyps Unintentional weight loss Loss of weight Panlobular emphysema Other emphysema Tobacco use Tobacco use disorder Panlobular emphysema Other emphysema History of colon polyps Personal history of colonic polyps Underweight Tobacco abuse Tobacco use disorder Panlobular emphysema Other emphysema Cervicogenic headache Headache Dental caries Unspecified dental caries Tobacco abuse Tobacco use disorder Underweight Cervical cancer screening Screening for malignant neoplasm of the cervix Breast cancer screening Breast screening, unspecified Right upper quadrant abdominal pain Abdominal pain, right upper quadrant Concern about STD in female without diagnosis Person with feared complaint in whom no diagnosis was made Osteoporosis without current pathological fracture, unspecified osteoporosis type Underweight COPD with acute exacerbation Obstructive chronic bronchitis with exacerbation Dental caries Unspecified dental caries Tobacco abuse Tobacco use disorder Low vitamin D level Chronic maxillary sinusitis Tobacco abuse Tobacco use disorder Concern about STD in female without diagnosis Person with feared complaint in whom no diagnosis was made COPD with acute exacerbation Obstructive chronic bronchitis with exacerbation Pain of upper abdomen Abdominal pain, other specified site Underweight Panlobular emphysema Other emphysema Panlobular emphysema Other emphysema Underweight Cervical cancer screening Screening for malignant neoplasm of the cervix Breast cancer screening Breast screening, unspecified Osteoporosis without current pathological fracture, unspecified osteoporosis type Chronic pain of right heel Pain of upper abdomen Abdominal pain, other specified site Vitamin D deficiency Unspecified vitamin D deficiency Panlobular emphysema Other emphysema Chronic pain of right heel Healthcare maintenance Routine general medical examination at a health care facility Underweight Pain of upper abdomen Abdominal pain, other specified site Tobacco abuse Tobacco use disorder Tobacco abuse Tobacco use disorder Healthcare maintenance Routine general medical examination at a health care facility Tick bite of abdomen, subsequent encounter Panlobular emphysema Other emphysema Nodule of skin of left forearm Right upper quadrant abdominal pain Abdominal pain, right upper quadrant Mass of left forearm Vitamin D deficiency Unspecified vitamin D deficiency Underweight Elevated fasting glucose Impaired fasting glucose Panlobular emphysema Other emphysema Elevated fasting glucose Impaired fasting glucose Mass of left forearm Tobacco abuse Tobacco use disorder Screening mamm[facility] for breast cancer [facility] Diagnosis Abdominal pain- Primary Abdominal pain, unspecified site Tobacco abuse Tobacco use disorder Abdominal pain Abdominal pain, unspecified site Routine health maintenance Routine general medical examination at a health care facility GERD (gastroesophageal reflux disease) Esophageal reflux Osteoporosis; severe - surgically post-menopausal Osteoporosis, unspecified Chronic obstructive pulmonary disease (COPD) - s/p L pneumonectomy Chronic airway obstruction, not elsewhere classified Elevated LFTs Other abnormal blood chemistry Tobacco abuse Tobacco use disorder Colon cancer screening- Primary Special screening for malignant neoplasms, colon 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 Elevated LFTs Other abnormal blood chemistry Tobacco abuse Tobacco use disorder Osteoporosis Osteoporosis, unspecified Routine health maintenance Routine general medical examination at a health care facility Osteoporosis Osteoporosis, unspecified 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 Mixed hyperlipidemia Panlobular emphysema Other emphysema Elevated LFTs Other abnormal blood chemistry Tobacco abuse Tobacco use disorder Intractable chronic paroxysmal hemicrania Chronic paroxysmal hemicrania Environmental and seasonal allergies Underweight Chronic fatigue Other malaise and fatigue Lipoma of left upper extremity Neuropathic pain Neuralgia, neuritis, and radiculitis, unspecified Other complicated headache syndrome- Primary Mixed hyperlipidemia Osteoporosis Osteoporosis, unspecified Tobacco abuse Tobacco use disorder Underweight Non-seasonal allergic rhinitis due to pollen Chronic pansinusitis Other chronic sinusitis Intractable chronic paroxysmal hemicrania Chronic paroxysmal hemicrania Neuropathic pain Neuralgia, neuritis, and radiculitis, unspecified Tobacco abuse Tobacco use disorder Panlobular emphysema Other emphysema Mixed hyperlipidemia Chronic pain of right heel Panlobular emphysema Other emphysema Mixed hyperlipidemia Chronic nonintractable headache, unspecified headache type Osteoporosis without current pathological fracture, unspecified osteoporosis type Tobacco abuse Tobacco use disorder Elevated LFTs Other abnormal blood chemistry Tick bite of abdomen, subsequent encounter Chronic maxillary sinusitis Ataxia- Primary Lack of coordination Weakness Other malaise and fatigue Hemiplegia affecting left nondominant side, unspecified etiology, unspecified hemiplegia type 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 Chronic low back pain without sciatica, unspecified back pain laterality- Primary Panlobular emphysema Other emphysema Episodic paroxysmal hemicrania, not intractable Episodic paroxysmal hemicrania Tobacco abuse Tobacco use disorder Weakness Other malaise and fatigue Myalgia Mylagia and myositis, unspecified Low vitamin D level Panlobular emphysema Other emphysema Dental caries Unspecified dental caries Tobacco abuse Tobacco use disorder Chronic fatigue Other malaise and fatigue Myalgia Mylagia and myositis, unspecified Chronic paroxysmal hemicrania, not intractable Chronic paroxysmal hemicrania Unintentional weight loss Loss of weight Panlobular emphysema Other emphysema Cervicogenic headache Headache Tobacco abuse Tobacco use disorder Rib pain on left side Chest pain, unspecified Recent unexplained weight loss Pain in right foot Pain in limb History of colon polyps Personal history of colonic polyps Unintentional weight loss Loss of weight Panlobular emphysema Other emphysema Tobacco use Tobacco use disorder Panlobular emphysema Other emphysema History of colon polyps Personal history of colonic polyps Underweight Tobacco abuse Tobacco use disorder Panlobular emphysema Other emphysema Cervicogenic headache Headache Dental caries Unspecified dental caries Tobacco abuse Tobacco use disorder Underweight Cervical cancer screening Screening for malignant neoplasm of the cervix Breast cancer screening Breast screening, unspecified Right upper quadrant abdominal pain Abdominal pain, right upper quadrant Concern about STD in female without diagnosis Person with feared complaint in whom no diagnosis was made Osteoporosis without current pathological fracture, unspecified osteoporosis type Underweight COPD with acute exacerbation Obstructive chronic bronchitis with exacerbation Dental caries Unspecified dental caries Tobacco abuse Tobacco use disorder Low vitamin D level Chronic maxillary sinusitis Tobacco abuse Tobacco use disorder Concern about STD in female without diagnosis Person with feared complaint in whom no diagnosis was made COPD with acute exacerbation Obstructive chronic bronchitis with exacerbation Pain of upper abdomen Abdominal pain, other specified site Underweight Panlobular emphysema Other emphysema Panlobular emphysema Other emphysema Underweight Cervical cancer screening Screening for malignant neoplasm of the cervix Breast cancer screening Breast screening, unspecified Osteoporosis without current pathological fracture, unspecified osteoporosis type Chronic pain of right heel Pain of upper abdomen Abdominal pain, other specified site Vitamin D deficiency Unspecified vitamin D deficiency Panlobular emphysema Other emphysema Chronic pain of right heel Healthcare maintenance Routine general medical examination at a health care facility Underweight Pain of upper abdomen Abdominal pain, other specified site Tobacco abuse Tobacco use disorder Tobacco abuse Tobacco use disorder Healthcare maintenance Routine general medical examination at a health care facility Tick bite of abdomen, subsequent encounter Panlobular emphysema Other emphysema Nodule of skin of left forearm Right upper quadrant abdominal pain Abdominal pain, right upper quadrant Mass of left forearm Vitamin D deficiency Unspecified vitamin D deficiency Underweight Elevated fasting glucose Impaired fasting glucose Panlobular emphysema Other emphysema Elevated fasting glucose Impaired fasting glucose Mass of left forearm Tobacco abuse Tobacco use disorder Pre-operative cardiovascular examination- Primary Coronary artery ectasia Other specified disorders of arteries and arterioles Coronary artery calcification [facility] Diagnosis Abdominal pain- Primary Abdominal pain, unspecified site Tobacco abuse Tobacco use disorder Abdominal pain Abdominal pain, unspecified site Routine health maintenance Routine general medical examination at a health care facility GERD (gastroesophageal reflux disease) Esophageal reflux Osteoporosis; severe - surgically post-menopausal Osteoporosis, unspecified Chronic obstructive pulmonary disease (COPD) - s/p L pneumonectomy Chronic airway obstruction, not elsewhere classified Elevated LFTs Other abnormal blood chemistry Tobacco abuse Tobacco use disorder Colon cancer screening- Primary Special screening for malignant neoplasms, colon 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 Elevated LFTs Other abnormal blood chemistry Tobacco abuse Tobacco use disorder Osteoporosis Osteoporosis, unspecified Routine health maintenance Routine general medical examination at a health care facility Osteoporosis Osteoporosis, unspecified 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 Mixed hyperlipidemia Panlobular emphysema Other emphysema Elevated LFTs Other abnormal blood chemistry Tobacco abuse Tobacco use disorder Intractable chronic paroxysmal hemicrania Chronic paroxysmal hemicrania Environmental and seasonal allergies Underweight Chronic fatigue Other malaise and fatigue Lipoma of left upper extremity Neuropathic pain Neuralgia, neuritis, and radiculitis, unspecified Other complicated headache syndrome- Primary Mixed hyperlipidemia Osteoporosis Osteoporosis, unspecified Tobacco abuse Tobacco use disorder Underweight Non-seasonal allergic rhinitis due to pollen Chronic pansinusitis Other chronic sinusitis Intractable chronic paroxysmal hemicrania Chronic paroxysmal hemicrania Neuropathic pain Neuralgia, neuritis, and radiculitis, unspecified Tobacco abuse Tobacco use disorder Panlobular emphysema Other emphysema Mixed hyperlipidemia Chronic pain of right heel Panlobular emphysema Other emphysema Mixed hyperlipidemia Chronic nonintractable headache, unspecified headache type Osteoporosis without current pathological fracture, unspecified osteoporosis type Tobacco abuse Tobacco use disorder Elevated LFTs Other abnormal blood chemistry Tick bite of abdomen, subsequent encounter Chronic maxillary sinusitis Ataxia- Primary Lack of coordination Weakness Other malaise and fatigue Hemiplegia affecting left nondominant side, unspecified etiology, unspecified hemiplegia type 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 Chronic low back pain without sciatica, unspecified back pain laterality- Primary Panlobular emphysema Other emphysema Episodic paroxysmal hemicrania, not intractable Episodic paroxysmal hemicrania Tobacco abuse Tobacco use disorder Weakness Other malaise and fatigue Myalgia Mylagia and myositis, unspecified Low vitamin D level Panlobular emphysema Other emphysema Dental caries Unspecified dental caries Tobacco abuse Tobacco use disorder Chronic fatigue Other malaise and fatigue Myalgia Mylagia and myositis, unspecified Chronic paroxysmal hemicrania, not intractable Chronic paroxysmal hemicrania Unintentional weight loss Loss of weight Panlobular emphysema Other emphysema Cervicogenic headache Headache Tobacco abuse Tobacco use disorder Rib pain on left side Chest pain, unspecified Recent unexplained weight loss Pain in right foot Pain in limb History of colon polyps Personal history of colonic polyps Unintentional weight loss Loss of weight Panlobular emphysema Other emphysema Tobacco use Tobacco use disorder Panlobular emphysema Other emphysema History of colon polyps Personal history of colonic polyps Underweight Tobacco abuse Tobacco use disorder Panlobular emphysema Other emphysema Cervicogenic headache Headache Dental caries Unspecified dental caries Tobacco abuse Tobacco use disorder Underweight Cervical cancer screening Screening for malignant neoplasm of the cervix Breast cancer screening Breast screening, unspecified Right upper quadrant abdominal pain Abdominal pain, right upper quadrant Concern about STD in female without diagnosis Person with feared complaint in whom no diagnosis was made Osteoporosis without current pathological fracture, unspecified osteoporosis type Underweight COPD with acute exacerbation Obstructive chronic bronchitis with exacerbation Dental caries Unspecified dental caries Tobacco abuse Tobacco use disorder Low vitamin D level Chronic maxillary sinusitis Tobacco abuse Tobacco use disorder Concern about STD in female without diagnosis Person with feared complaint in whom no diagnosis was made COPD with acute exacerbation Obstructive chronic bronchitis with exacerbation Pain of upper abdomen Abdominal pain, other specified site Underweight Panlobular emphysema Other emphysema Panlobular emphysema Other emphysema Underweight Cervical cancer screening Screening for malignant neoplasm of the cervix Breast cancer screening Breast screening, unspecified Osteoporosis without current pathological fracture, unspecified osteoporosis type Chronic pain of right heel Pain of upper abdomen Abdominal pain, other specified site Vitamin D deficiency Unspecified vitamin D deficiency Panlobular emphysema Other emphysema Chronic pain of right heel Healthcare maintenance Routine general medical examination at a health care facility Underweight Pain of upper abdomen Abdominal pain, other specified site Tobacco abuse Tobacco use disorder Tobacco abuse Tobacco use disorder Healthcare maintenance Routine general medical examination at a health care facility Tick bite of abdomen, subsequent encounter Panlobular emphysema Other emphysema Nodule of skin of left forearm Right upper quadrant abdominal pain Abdominal pain, right upper quadrant Mass of left forearm Vitamin D deficiency Unspecified vitamin D deficiency Underweight Elevated fasting glucose Impaired fasting glucose Panlobular emphysema Other emphysema Elevated fasting glucose Impaired fasting glucose Mass of left forearm Tobacco abuse Tobacco use disorder Right upper lobe pulmonary nodule- Primary Panlobular emphysema Other emphysema Coronary artery ectasia Other specified disorders of arteries and arterioles [facility] Diagnosis Abdominal pain- Primary Abdominal pain, unspecified site Tobacco abuse Tobacco use disorder Abdominal pain Abdominal pain, unspecified site Routine health maintenance Routine general medical examination at a health care facility GERD (gastroesophageal reflux disease) Esophageal reflux Osteoporosis; severe - surgically post-menopausal Osteoporosis, unspecified Chronic obstructive pulmonary disease (COPD) - s/p L pneumonectomy Chronic airway obstruction, not elsewhere classified Elevated LFTs Other abnormal blood chemistry Tobacco abuse Tobacco use disorder Colon cancer screening- Primary Special screening for malignant neoplasms, colon 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 Elevated LFTs Other abnormal blood chemistry Tobacco abuse Tobacco use disorder Osteoporosis Osteoporosis, unspecified Routine health maintenance Routine general medical examination at a health care facility Osteoporosis Osteoporosis, unspecified 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 Mixed hyperlipidemia Panlobular emphysema Other emphysema Elevated LFTs Other abnormal blood chemistry Tobacco abuse Tobacco use disorder Intractable chronic paroxysmal hemicrania Chronic paroxysmal hemicrania Environmental and seasonal allergies Underweight Chronic fatigue Other malaise and fatigue Lipoma of left upper extremity Neuropathic pain Neuralgia, neuritis, and radiculitis, unspecified Other complicated headache syndrome- Primary Mixed hyperlipidemia Osteoporosis Osteoporosis, unspecified Tobacco abuse Tobacco use disorder Underweight Non-seasonal allergic rhinitis due to pollen Chronic pansinusitis Other chronic sinusitis Intractable chronic paroxysmal hemicrania Chronic paroxysmal hemicrania Neuropathic pain Neuralgia, neuritis, and radiculitis, unspecified Tobacco abuse Tobacco use disorder Panlobular emphysema Other emphysema Mixed hyperlipidemia Chronic pain of right heel Panlobular emphysema Other emphysema Mixed hyperlipidemia Chronic nonintractable headache, unspecified headache type Osteoporosis without current pathological fracture, unspecified osteoporosis type Tobacco abuse Tobacco use disorder Elevated LFTs Other abnormal blood chemistry Tick bite of abdomen, subsequent encounter Chronic maxillary sinusitis Ataxia- Primary Lack of coordination Weakness Other malaise and fatigue Hemiplegia affecting left nondominant side, unspecified etiology, unspecified hemiplegia type 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 Chronic low back pain without sciatica, unspecified back pain laterality- Primary Panlobular emphysema Other emphysema Episodic paroxysmal hemicrania, not intractable Episodic paroxysmal hemicrania Tobacco abuse Tobacco use disorder Weakness Other malaise and fatigue Myalgia Mylagia and myositis, unspecified Low vitamin D level Panlobular emphysema Other emphysema Dental caries Unspecified dental caries Tobacco abuse Tobacco use disorder Chronic fatigue Other malaise and fatigue Myalgia Mylagia and myositis, unspecified Chronic paroxysmal hemicrania, not intractable Chronic paroxysmal hemicrania Unintentional weight loss Loss of weight Panlobular emphysema Other emphysema Cervicogenic headache Headache Tobacco abuse Tobacco use disorder Rib pain on left side Chest pain, unspecified Recent unexplained weight loss Pain in right foot Pain in limb History of colon polyps Personal history of colonic polyps Unintentional weight loss Loss of weight Panlobular emphysema Other emphysema Tobacco use Tobacco use disorder Panlobular emphysema Other emphysema History of colon polyps Personal history of colonic polyps Underweight Tobacco abuse Tobacco use disorder Panlobular emphysema Other emphysema Cervicogenic headache Headache Dental caries Unspecified dental caries Tobacco abuse Tobacco use disorder Underweight Cervical cancer screening Screening for malignant neoplasm of the cervix Right upper quadrant abdominal pain Abdominal pain, right upper quadrant Concern about STD in female without diagnosis Person with feared complaint in whom no diagnosis was made Osteoporosis without current pathological fracture, unspecified osteoporosis type Underweight COPD with acute exacerbation Obstructive chronic bronchitis with exacerbation Dental caries Unspecified dental caries Tobacco abuse Tobacco use disorder Low vitamin D level Chronic maxillary sinusitis Tobacco abuse Tobacco use disorder Concern about STD in female without diagnosis Person with feared complaint in whom no diagnosis was made COPD with acute exacerbation Obstructive chronic bronchitis with exacerbation Pain of upper abdomen Abdominal pain, other specified site Underweight Panlobular emphysema Other emphysema Panlobular emphysema Other emphysema Underweight Cervical cancer screening Screening for malignant neoplasm of the cervix Osteoporosis without current pathological fracture, unspecified osteoporosis type Chronic pain of right heel Pain of upper abdomen Abdominal pain, other specified site Vitamin D deficiency Unspecified vitamin D deficiency Panlobular emphysema Other emphysema Chronic pain of right heel Healthcare maintenance Routine general medical examination at a health care facility Underweight Pain of upper abdomen Abdominal pain, other specified site Tobacco abuse Tobacco use disorder Tobacco abuse Tobacco use disorder Healthcare maintenance Routine general medical examination at a health care facility Tick bite of abdomen, subsequent encounter Panlobular emphysema Other emphysema Nodule of skin of left forearm Right upper quadrant abdominal pain Abdominal pain, right upper quadrant Mass of left forearm Vitamin D deficiency Unspecified vitamin D deficiency Underweight Elevated fasting glucose Impaired fasting glucose Panlobular emphysema Other emphysema Elevated fasting glucose Impaired fasting glucose Mass of left forearm Tobacco abuse Tobacco use disorder Adenocarcinoma of right lung- Primary [facility] Diagnosis Onset Date Resolution Status Admit Date Adenocarcinoma of lower lobe of right lung acute April 20 9:18am Adenocarcinoma of upper lobe of right lung acute April 20 9:18am [facility] Work Phone: Evaluation note* Diagnosis Abdominal pain- Primary Abdominal pain, unspecified site Tobacco abuse Tobacco use disorder Abdominal pain Abdominal pain, unspecified site Routine health maintenance Routine general medical examination at a health care facility GERD (gastroesophageal reflux disease) Esophageal reflux Osteoporosis; severe - surgically post-menopausal Osteoporosis, unspecified Chronic obstructive pulmonary disease (COPD) - s/p L pneumonectomy Chronic airway obstruction, not elsewhere classified Elevated LFTs Other abnormal blood chemistry Tobacco abuse Tobacco use disorder Colon cancer screening- Primary Special screening for malignant neoplasms, colon 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 Elevated LFTs Other abnormal blood chemistry Tobacco abuse Tobacco use disorder Osteoporosis Osteoporosis, unspecified Routine health maintenance Routine general medical examination at a health care facility Osteoporosis Osteoporosis, unspecified 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 Mixed hyperlipidemia Panlobular emphysema Other emphysema Elevated LFTs Other abnormal blood chemistry Tobacco abuse Tobacco use disorder Intractable chronic paroxysmal hemicrania Chronic paroxysmal hemicrania Environmental and seasonal allergies Underweight Chronic fatigue Other malaise and fatigue Lipoma of left upper extremity Neuropathic pain Neuralgia, neuritis, and radiculitis, unspecified Other complicated headache syndrome- Primary Mixed hyperlipidemia Osteoporosis Osteoporosis, unspecified Tobacco abuse Tobacco use disorder Underweight Non-seasonal allergic rhinitis due to pollen Chronic pansinusitis Other chronic sinusitis Intractable chronic paroxysmal hemicrania Chronic paroxysmal hemicrania Neuropathic pain Neuralgia, neuritis, and radiculitis, unspecified Tobacco abuse Tobacco use disorder Panlobular emphysema Other emphysema Mixed hyperlipidemia Chronic pain of right heel Panlobular emphysema Other emphysema Mixed hyperlipidemia Chronic nonintractable headache, unspecified headache type Osteoporosis without current pathological fracture, unspecified osteoporosis type Tobacco abuse Tobacco use disorder Elevated LFTs Other abnormal blood chemistry Tick bite of abdomen, subsequent encounter Chronic maxillary sinusitis Ataxia- Primary Lack of coordination Weakness Other malaise and fatigue Hemiplegia affecting left nondominant side, unspecified etiology, unspecified hemiplegia type 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 Chronic low back pain without sciatica, unspecified back pain laterality- Primary Panlobular emphysema Other emphysema Episodic paroxysmal hemicrania, not intractable Episodic paroxysmal hemicrania Tobacco abuse Tobacco use disorder Weakness Other malaise and fatigue Myalgia Mylagia and myositis, unspecified Low vitamin D level Panlobular emphysema Other emphysema Dental caries Unspecified dental caries Tobacco abuse Tobacco use disorder Chronic fatigue Other malaise and fatigue Myalgia Mylagia and myositis, unspecified Chronic paroxysmal hemicrania, not intractable Chronic paroxysmal hemicrania Unintentional weight loss Loss of weight Panlobular emphysema Other emphysema Cervicogenic headache Headache Tobacco abuse Tobacco use disorder Rib pain on left side Chest pain, unspecified Recent unexplained weight loss Pain in right foot Pain in limb History of colon polyps Personal history of colonic polyps Unintentional weight loss Loss of weight Panlobular emphysema Other emphysema Tobacco use Tobacco use disorder Panlobular emphysema Other emphysema History of colon polyps Personal history of colonic polyps Underweight Tobacco abuse Tobacco use disorder Panlobular emphysema Other emphysema Cervicogenic headache Headache Dental caries Unspecified dental caries Tobacco abuse Tobacco use disorder Underweight Cervical cancer screening Screening for malignant neoplasm of the cervix Right upper quadrant abdominal pain Abdominal pain, right upper quadrant Concern about STD in female without diagnosis Person with feared complaint in whom no diagnosis was made Osteoporosis without current pathological fracture, unspecified osteoporosis type Underweight COPD with acute exacerbation Obstructive chronic bronchitis with exacerbation Dental caries Unspecified dental caries Tobacco abuse Tobacco use disorder Low vitamin D level Chronic maxillary sinusitis Tobacco abuse Tobacco use disorder Concern about STD in female without diagnosis Person with feared complaint in whom no diagnosis was made COPD with acute exacerbation Obstructive chronic bronchitis with exacerbation Pain of upper abdomen Abdominal pain, other specified site Underweight Panlobular emphysema Other emphysema Panlobular emphysema Other emphysema Underweight Cervical cancer screening Screening for malignant neoplasm of the cervix Osteoporosis without current pathological fracture, unspecified osteoporosis type Chronic pain of right heel Pain of upper abdomen Abdominal pain, other specified site Vitamin D deficiency Unspecified vitamin D deficiency Panlobular emphysema Other emphysema Chronic pain of right heel Healthcare maintenance Routine general medical examination at a health care facility Underweight Pain of upper abdomen Abdominal pain, other specified site Tobacco abuse Tobacco use disorder Tobacco abuse Tobacco use disorder Healthcare maintenance Routine general medical examination at a health care facility Tick bite of abdomen, subsequent encounter Panlobular emphysema Other emphysema Nodule of skin of left forearm Right upper quadrant abdominal pain Abdominal pain, right upper quadrant Mass of left forearm Vitamin D deficiency Unspecified vitamin D deficiency Underweight Elevated fasting glucose Impaired fasting glucose Panlobular emphysema Other emphysema Elevated fasting glucose Impaired fasting glucose Mass of left forearm Tobacco abuse Tobacco use disorder Adenocarcinoma of right lung- Primary [facility] Attachments The following attachments cannot be sent through [facility] Everywhere. * Scan: PET ([facility]) (British) * PFTs (Pulmonary Function Tests) (British) [facility] Author Roddy Garay [facility] Note Date/Time April 20, 2025 10 :09am [facility] [id number] [place] [address] OFFICE VISIT Date of Service: 04/20/25918 MR#: [id number] Acct: [id number] Name: CHIN WHITING Rep #: [id number] : 1960 From: Roddy gee DO Age/Sex: 64/F Location: [facility] Status: Signed Intake Vital Signs 03/03/24 12:16 04/20/25 09:30 Height 5 ft 4 in 5 ft 4 in Weight: 98 lb 7 oz 98 lb 7 oz BMI 16.9 16.9 BP 131/72 H Blood Pressure Location Rt brachial Position Sitting Respiration 16 Pulse 87 Pulse Source Monitor Temp 96.4 F L Temperature Source Temporal Artery Pulse Oximetry (%) 97 Oxygen Delivery Method room air Intake Is patient in pain?: No Allergies albuterol Allergy (Unknown, Verified 04/20/25 09:23) tachycardia azithromycin Adverse Reaction (Verified 04/20/25 09:23) Anaphylaxis Medications ?Medication ?Instructions ?Recorded ?Confirmed ?Type mometasone-formoterol HFA 100 2 puff inhalation Q12.TC U 03/03/24 04/20/25 History mcg-5 mcg/actuation aerosol inhaler (Dulera) ondansetron 4 mg disintegrating 4 mg PO Q8H 04/15/25 1 History tablet dimethicone-zinc oxide-collidal spray topical 04/20/25 04/20/25 History silver 20 %-25 %-25 PPM topical spray flavoring agent (bulk) ea miscellaneous 04/20/25 History mullien leaf tea PO 04/20/25 History mushroom coffe PO 04/20/25 History soursop tea PO 04/20/25 History Central Venous Access Central Venous Access: No PFSH PFSH Medical History (Updated 04/20/25 @ 10:[address] Roddy Garay, DO) History of pneumonia Pelvic fracture Migraines Heel fracture Depression Adenoid hypertrophy Chondrosarcoma Cardiac angina Back pain Lung cancer Cancer of cartilage (articular) (joint) COPD (chronic obstructive pulmonary disease) Home Medications ?Medication ?Instructions ?Recorded ?Last Taken ?Type mometasone-formoterol HFA 100 2 puff inhalation Q12.TC U 03/03/24 Unknown History mcg-5 mcg/actuation aerosol inhaler (Dulera) ondansetron 4 mg disintegrating 4 mg PO Q8H 04/15/25 U nknown History tablet dimethicone-zinc oxide-collidal spray topical 04/20/25 Unknown History silver 20 %-25 %-25 PPM topical spray flavoring agent (bulk) ea miscellaneous 04/20/25 Un known History mullien leaf tea PO 04/20/25 Unknown History mushroom coffe PO 04/20/25 Unknown History soursop tea PO 04/20/25 Unknown History Allergy/AdvReac Type Severity Reaction Status Date / Time albuterol Allergy Unknown tachycardia Verified 04/20/25 09:23 azithromycin AdvReac Anaphylaxis Verified 04/20/25 09:23 Family History (Updated 04/15/25 @ 13:49 by Nai Menjivar) Brother Aneurysm Son Clotting disorder Heart disease Grandfather Diabetes Mother Diabetes Hypertension Father Hemochromatosis Surgical History (Updated 04/15/25 @ 13:10 by Nai Menjivar) Hx of tonsillectomy History of surgery on arm Hx of hysterectomy Hx of surgical amputation of finger History of lung biopsy Hx of colonoscopy Hx of tooth extraction S/P partial lobectomy of lung Social History (Updated 04/15/25 @ 13:51 by Nai Menjivar) Smoking Status: Former smoker Tobacco: How many years used: 30 substance use type: marijuana Referring Provider: Zain Khanna MD PhD Diagnosis: Chin Whiting is a 64 year-old female diagnosed with two NSCLC one in the upper and one in lower right lung s/p PET scan (02/11/2025), CT chest without contrast (03/06/2025), and navigational bronchoscopy with biopsies (04/03/2025). History of Present Illness: 03/03/2024: Patient completed CT chest/abdomen without contrast.? This demonstrated diffuse emphysematous changes with bullous formation, calcified granuloma in the left lower lobe.? Normal mediastinum.? No other abnormalities are appreciated. 02/11/2025: PET scan was performed.? This demonstrated 2 moderately metabolic right lung nodule suspicious for neoplastic disease.? In the right upper lobe there is a nodule measuring 6 x 7 mm and SUV of 4.2 and also in the right lower lobe there is a new lesion measuring 3 x 4 mm with a SUV of 3.5.? There is a medial right lower lobe lymph node conglomerate which does not demonstrate significant FDG uptake and no evidence of adenopathy or other abnormalities. 03/06/2025: Patient completed CT chest without contrast.? This demonstrated postsurgical changes from a left upper lobe wedge resection with stable biapicalscarring.? Previously measured medial right lower lobe nodule has decreased in size measuring 9 x 7 mm previously measuring 13 x 9 mm in 2023 and did not show hypermetabolic activity on PET scan.? There is increased size of a more lateral right lower lobe nodule measuring 6 x 5 mm previously measuring 5 x 2 mm in nd did show hypermetabolic activity on PET.? There is a right upper lobe spiculated nodule measuring 7 x 6 mm which is new compared to the January 2024 study where there was only a small area of architectural distortion.? No adenopathy. 03/06/2025: Patient completed PFTs. FEV1 is 47% predicted, DLCO is 58% predicted. 04/03/2025: Patient completed navigational bronchoscopy and biopsy of both the right upper lobe and right lower lobe nodules.? Right upper lobe nodule biopsy was consistent with atypical glandular proliferation suspicious for adenocarcinoma, right lower lobe nodule biopsy was consistent with adenocarcinoma with papillary features.? PD-L1 TPS less than 1%.? Level 7 lymph node FNA was also completed which demonstrated no malignant cells, lymphocytes are present. Radiation Treatment History: No prior history of ration therapy. No pacemaker. No diagnosis of radiosensitizing comorbidity. Interval History: Patient presents for initial consultation. She has been a chronic smoker for atleast 30 years smoking about 1 to 2 packs/day and now cut back to 5 to 10 cigarettes/day. She does have a dry cough somewhat infrequently, she does use an inhaler once per day and has never used oxygen. She denies having shortness of breath with exertion. 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 She denies fatigue, bone pain, unexpected weight loss. She denies headaches, vision changes, focal weakness/numbness, nausea/vomiting. She does complete all ADLs without any difficulty and she denies having other problems or concerns at this time. Review of Systems: A 12-point review of systems was completed and was negative except for what is noted in the HPI/Interval History and by the nurse. Physical Exam: Weight: 98 lbs 7 oz ECO KARNOFSKY SCORE: 70% CONSTITUTIONAL: Well-developed, well-nourished, and in no apparent distress. NECK: Supple, no thyromegaly, and non-tender. Trachea midline. No cervical or supraclavicular adenopathy noted. CARDIAC: Regular rate and rhythm. Normal S1, S2. No murmurs, rubs, or gallops. PULMONARY/CHEST: Lungs are clear to auscultation and percussion bilaterally. No wheezes, rhonchi, or crackles noted. No increased work of breathing. EXTREMITIES: Full range of motion in all four extremities. No evidence of edema. PSYCHIATRIC: Appropriate mood and affect for the clinical situation. Imaging: As per HPI Laboratory Data: None Assessment & Plan Assessment/Plan (1) Adenocarcinoma of upper lobe of right lung: (2) Adenocarcinoma of lower lobe of right lung: PLAN: Plan Assessment: Chin Whiting is a 64 year-old female diagnosed with two NSCLC one in the upper and one in lower right lung s/p PET scan (02/11/2025), CT chest without contrast (03/06/2025), and navigational bronchoscopy with biopsies (04/03/2025). Plan: Patient presents for initial consultation. She is a chronic smoker of 1 to 2 packs/day for 30 years and is trying to quit, she is down to 5 to 10 cigarettes/day. We did review the benefit of quitting. I had a detailed discussion with the patient regarding the diagnosis of early stage non-small cell lung cancer and various treatment options available.? We reviewed the findings of her CT chest completed 03/06/2025 as well as the PET scan completed 02/11/2025 which demonstrated 2 moderately metabolic lung nodules, 1 in the rightupper lobe measuring about 7 x 6 mm with an SUV of 4.2 and 1 in the right lower lobe measuring about 6 x 5 mm with an SUV of 3.5, there are additional lung nodules not PET avid and also stable compare to prior scans. ?We also reviewed the findings of the biopsy, she completed navigational bronchoscopy on 04/03/2025nd both lesions were biopsied, both were consistent with adenocarcinoma, TPS less than 1%, a level 7 lymph node FNA was negative. ?She was seen by thoracic surgery last week and was recommended to undergo definitive radiation due to herlung function and medical comorbidities.? I discussed the alternative option of SBRT and that this would use precisely directed high-dose radiation therapy to ablate both lesions.? I explained that there have been several studies evaluating SBRT to early-stage lung cancer showed very high rates of local control and regional control.? We discussed completing staging with brain MRI which will be completed. I discussed the logistics of stereotactic radiation therapy for lung cancer including CT simulation was stereotactic body frame immobilization and 4D CT scan, treatment planning, followed by likely 5 fractions of radiation therapy.? All risks, benefits, and alternatives were discussed and all questions and concerns were addressed.? I discussed the potential short-term and late radiation toxicities associated with lung SBRT which would include but are not limited to fatigue, worsening dyspnea or further oxygen dependence, cough, chestwall pain or fracture, esophagitis or esophageal stricture, spinal cord myelopathy, or airway necrosis.? We reviewed the relative likelihood of these toxicities given the location and size of her tumor and also reviewed potential management strategies for these toxicities.? Following our discussion she desired to proceed with SBRT to both lesions.? We will have her return for CT simulation in near future and she is instructed to call with any further questions or concerns in the interim. Thank you for allowing me to participate in the management and care of your patient. If I may answer any questions in the interim, please do not hesitate tocontact me at any time. Roddy Garay DO, MS Airplane Rigger, Department of Radiation Oncology [facility] Coding Level of Care Code Off vis,new,level 5 Diagnoses Adenocarcinoma of upper lobe of right lung C34.11 Adenocarcinoma of lower lobe of right lung C34.31 04/20/25 1021 <Electronically signed by Roddy Garay DO> Date _ Roddy Garay DO Cosigner Signature: Date (if applicable) CC: Dr. Alma Baptiste MD ~ [facility] Work Phone: Reason for referral (narrative)* Consultation (Routine) - New Request Specialty Diagnoses / Procedures Referred By Contac t Referred To Contact Pulmonary Disease Diagnoses COPD with acute exacerbation Yulia Pisano APRN-CNP [address] [place] [address] Referral ID Status Reason Start Date Expiration Date V isits Requested Visits Authorized [id number] New Request 11/21/2021 12/16/2022 1 1 [facility] Consultation (Routine) - New Request Specialty Diagnoses / Procedures Referred By Omar t Referred To Contact Neurology Diagnoses Cervicogenic headache Yulia Pisano APRN-CNP [address] [facility] [address] [place] [address] Referral ID Status Reason Start Date Expiration Date V isits Requested Visits Authorized [id number] New Request 11/07/2022 12/02/2023 1 1 * Endoscopy (Routine) - New Request Specialty Diagnoses / Procedures Referred By Contac t Referred To Contact Diagnoses Screening for colon cancer Procedures SCREENING COLONOSCOPY NJ COLONOSCOPY FLX DX W/COLLJ SPEC WHEN PFRMD Yulia Pisano APRN-CNP [address] [facility] [address] [place] [address] Referral ID Status Reason Start Date Expiration Date V isits Requested Visits Authorized [id number] New Request 11/07/2022 12/02/2023 1 1 * Radiology (Routine) - New Request Specialty Diagnoses / Procedures Referred By Contac t Referred To Contact Diagnoses Encounter for screening mammogram for malignant neoplasm of breast Procedures MAMMO SCREENING BILATERAL AliyaYulia naqvi APRN-CNP [address] [facility] [place] [address] Referral ID Status Reason Start Date Expiration Date V isits Requested Visits Authorized [id number] New Request 11/07/2022 12/02/2023 1 1 [facility] Consultation (Routine) - New Request Specialty Diagnoses / Procedures Referred By Omar t Referred To Contact Oncology Diagnoses Right foot pain 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 Yulia Pisano APRN-CNP [address] [facility] [address] [place] [address] Referral ID Status Reason Start Date Expiration Date V isits Requested Visits Authorized [id number] New Request 12/29/2022 01/23/2024 1 1 * Radiology (Routine) - Auth Not Needed Specialty Diagnoses / Procedures Referred By Contac t Referred To Contact Peripheral Vascular Diagnoses Right foot pain Procedures VASC DUPLEX ARTERIAL EXTREMITY LOWER RIGHT Yulia Pisano APRN-CNP [address] [facility] [address] [place] [address] Vascular Surg Ultrasound [place] [address] [place] [address] Referral ID Status Reason Start Date Expiration Date V isits Requested Visits Authorized [id number] Auth Not Needed 12/28/2022 01/22/2024 1 1 [facility] for referral (narrative)* Consultation (Routine) - New Request Specialty Diagnoses / Procedures Referred By Contac t Referred To Contact Orthopaedic Surgery Diagnoses Swelling of left thumb Jyoti Gavin MD [address] [place] [address] Referral ID Status Reason Start Date Expiration Date V isits Requested Visits Authorized [id number] New Request 01/08/2024 02/01/2025 1 1 [facility] for referral (narrative)* Consultation (Routine) - New Request Specialty Diagnoses / Procedures Referred By Contac t Referred To Contact Hand Diagnoses Trigger finger of left thumb Brad Whitaker MD [address] [place] [address] Referral ID Status Reason Start Date Expiration Date V isits Requested Visits Authorized [id number] New Request 02/04/2024 02/28/2025 1 1 [facility] for referral (narrative)No reason for referral information available[facility] Work Phone: [facility] Narrative* Radiology (Emergency) - Closed Specialty Diagnoses / Procedures Referred By Contac t Referred To Contact Diagnoses Pulmonary nodule Procedures NUC PET HEAD TO THIGH Bran Currie MD [address] [place] [address] Phone: tel: fax: Referral ID Status Reason Start Date Expiration Date Visits Re quested Visits Authorized [id number] Closed 01/28/2025 02/22/2026 1 1 [facility] for visit Narrative* MRI/CAT Scan (Emergency) - Closed Specialty Diagnoses / Procedures Referred By Contac t Referred To Contact Diagnoses Pulmonary nodule Procedures CT CHEST WITHOUT CONTRAST CHG DIAGNOSTIC COMPUTED TOMOGRAPHY THORAX W/O Savi Carranza PA-C Phone: tel: fax: Referral ID Status Reason Start Date Expiration Date Visits Re quested Visits Authorized [id number] Closed 02/06/2025 03/03/2026 1 1 [facility] for visit Narrative* Pulmonary Rehabilitation (Routine) - New Request Specialty Diagnoses / Procedures Referred By Contac t Referred To Contact Diagnoses Nicotine dependence, uncomplicated, unspecified nicotine product type Procedures PFT STANDARD Savi Torres PA-C Phone: tel: fax: Referral ID Status Reason Start Date Expiration Date V isits Requested Visits Authorized [id number] New Request 02/06/2025 03/03/2026 1 1 [facility] for visit Narrative* Radiology (Routine) - New Request Specialty Diagnoses / Procedures Referred By Omar t Referred To Contact Diagnoses Screening mammogram for breast cancer Procedures MAMMO SCREENING WITH TERI BILATERAL Yulia Pisano, GATE SHEAR OPERATOR-PUBLIC SPEAKING PROFESSOR Phone: tel: fax: Referral ID Status Reason Start Date Expiration Date V isits Requested Visits Authorized [id number] New Request 01/22/2025 02/16/2026 1 1 [facility] for visit Narrative* Bronchoscopy (Routine) - New Request Specialty Diagnoses / Procedures Referred By Omar t Referred To Contact Diagnoses Panlobular emphysema Right upper lobe pulmonary nodule Coronary artery ectasia Procedures NAVIGATIONAL BRONCHOSCOPY NJ BRNCC INCL FLUOR GDNCE DX W/CELL WASHG SPX NJ BRONCHOSCOPY W/CPTR-ASST IMAGE-GUIDED NAVIGATION Shwetha Allen MBBS [address] [place] [address] Phone: tel: fax: Referral ID Status Reason Start Date Expiration Date V isits Requested Visits Authorized [id number] New Request 03/10/2025 04/04/[address] [facility] Summary Purpose Family History Relationship Condition Age at Onset Recorded Date/T neeta brother Aneurysm Unknown son Disorder of hemostasis Unknown Cardiac disease Unknown grandfather Diabetes mellitus Unknown mother Diabetes mellitus Unknown Hypertension Unknown father Hemochromatosis Unknown Advance Directives Latest Code Status on File Code Status Date Activated Date Inactivated Comments Full Code 11/10/2021 12:28 PM Documents on File Type Date Recorded Patient Principal Mechanical Engineer Expl anation Advance Directives/Living Will 11/21/2021 4:15 PM DNR Latest Code Status on File Code Status Date Activated Date Inactivated Comments DNRCC-ARREST 11/21/2021 5:27 PM I have disc ussed Chin Hector Randell's Do Not Resuscitate, Do Not Intubate wishes with Ms. Chin Whiting. They are in agreement with this code status. Full Code 11/10/2021 12:28 PM 11/21/2021 5:27 PM Latest Code Status on File Code Status Date Activated Date Inactivated Comments DNRCC-ARREST 11/21/2021 5:27 PM I have disc ussed Chin Hector Randell's Do Not Resuscitate, Do Not Intubate wishes with Ms. Chin Whiting. They are in agreement with this code status. Code Status History Code Status Date Activated Date Inactivated Comments Full Code 11/10/2021 12:28 PM 11/21/2021 5:27 PM Documents on File Type Date Recorded Patient Principal Mechanical Engineer Expl anation Advance Directives/Living Will 11/21/2021 4:15 PM DNR Latest Code Status on File Code Status Date Activated Date Inactivated Comments DNRCC-ARREST 11/21/2021 5:27 PM I have disc ussed Chin Hector Randell's Do Not Resuscitate, Do Not Intubate wishes with Ms. Chin Whiting. They are in agreement with this code status. Code Status History Code Status Date Activated Date Inactivated Comments Full Code 11/10/2021 12:28 PM 11/21/2021 5:27 PM Date Activated Date Inactivated Comments 11/21/2021 5:27 PM I have discusse d Chin M Randell's Do Not Resuscitate, Do Not Intubate wishes with Ms. Chin Whiting. They are in agreement with this code status. Date Activated Date Inactivated Comments 11/10/2021 12:28 PM 11/21/2021 5:27 PM Date Activated Date Inactivated Comments 11/21/2021 5:27 PM I have discusse d Chin M Randell's Do Not Resuscitate, Do Not Intubate wishes with Ms. Chin Whiting. They are in agreement with this code status. Date Activated Date Inactivated Comments 11/10/2021 12:28 PM 11/21/2021 5:27 PM Assessments Diagnosis Centrilobular emphysema Other emphysema Reason for Referral Specialty Diagnoses / Procedures Referred By Contac t Referred To Contact Pulmonary Disease Diagnoses COPD exacerbation David Carmichael MD [address] [place] [phone] Referral ID Status Reason Start Date Expiration Date V isits Requested Visits Authorized [id number] New Request 11/10/2021 12/05/2022 1 1 Specialty Diagnoses / Procedures Referred By Contac t Referred To Contact Procedures NO MECHANICAL DVT PROPHYLAXIS Daivd Carmichael MD [address] [place] [phone] Referral ID Status Reason Start Date Expiration Date V isits Requested Visits Authorized [id number] New Request 11/10/2021 12/05/2022 1 1 Specialty Diagnoses / Procedures Referred By Contac t Referred To Contact Procedures LOW RISK - NO PHARMACOLOGICAL DVT PROPHYLAXIS David Carmichael MD [address] [place] [phone] Referral ID Status Reason Start Date Expiration Date V isits Requested Visits Authorized [id number] New Request 11/10/2021 12/05/2022 1 1 Specialty Diagnoses / Procedures Referred By Contac t Referred To Contact Procedures DVT/VTE RISK ASSESSMENT David Carmichael MD [address] [address] Referral ID Status Reason Start Date Expiration Date V isits Requested Visits Authorized [id number] New Request 11/10/2021 12/05/2022 1 1 Specialty Diagnoses / Procedures Referred By Contac t Referred To Contact Procedures ECG Juan Wilkins MD [address] [place] [phone] Referral ID Status Reason Start Date Expiration Date V isits Requested Visits Authorized [id number] New Request 11/09/2021 12/04/2022 1 1 Specialty Diagnoses / Procedures Referred By Contac t Referred To Contact Procedures PLATELET MONITORING PER PROTOCOL Frannie Hernandez MD [address] [place] [phone] Referral ID Status Reason Start Date Expiration Date V isits Requested Visits Authorized [id number] New Request 11/21/2021 12/16/2022 1 1 Specialty Diagnoses / Procedures Referred By Contac t Referred To Contact Procedures DVT/VTE RISK ASSESSMENT Frannie Hernandez MD [address] [place] [address] Referral ID Status Reason Start Date Expiration Date V isits Requested Visits Authorized [id number] New Request 11/21/2021 12/16/2022 1 1 Specialty Diagnoses / Procedures Referred By Contac t Referred To Contact Procedures ECG Evelyn Moncada, GATE SHEAR OPERATOR-PUBLIC SPEAKING PROFESSOR [address] [place] [address] Referral ID Status Reason Start Date Expiration Date V isits Requested Visits Authorized [id number] New Request 11/21/2021 12/16/2022 1 1 Specialty Diagnoses / Procedures Referred By Contac t Referred To Contact Diagnoses Solid nodule of lung 6 mm to 8 mm in diameter Procedures NUC PET OTHER CHG NUC THERAPY HYPERTHYROID SUBSEQUENT Central Sched[facility] [address] [place] [address] Referral ID Status Reason Start Date Expiration Date Visits Re quested Visits Authorized [id number] Closed 12/20/2021 01/14/2023 1 1 Specialty Diagnoses / Procedures Referred By Contac t Referred To Contact Diagnoses Lung nodule Procedures CT CHEST WITHOUT CONTRAST CHG DIAGNOSTIC COMPUTED TOMOGRAPHY THORAX W/O Kamini Mast, MBBS [address] [place] [address] Referral ID Status Reason Start Date Expiration Date Visits Re quested Visits Authorized [id number] Closed 01/31/2022 02/25/2023 1 1 Specialty Diagnoses / Procedures Referred By Contac t Referred To Contact Diagnoses Headache, chronic daily Procedures MRI BRAIN WITHOUT CONTRAST [place] MRI BRAIN Shweta Stoner MD [address] [facility] [address] [place] [address] Referral ID Status Reason Start Date Expiration Date V isits Requested Visits Authorized [id number] Pending Review 11/21/2022 12/16/2023 1 1 Referral ID Status Reason Start Date Expiration Date Visits Re quested Visits Authorized [id number] Closed 11/21/2022 12/16/2023 1 1 Specialty Diagnoses / Procedures Referred By Contac t Referred To Contact Diagnoses History of chondrosarcoma Osteoporosis without current pathological fracture, unspecified osteoporosis type Pain in right foot Chronic pain of right heel Procedures XR CHEST PA AND LATERAL Ana Cuevas, GATE SHEAR OPERATOR-PUBLIC SPEAKING PROFESSOR [address] [place] [address] 5[address] [place] [address] Referral ID Status Reason Start Date Expiration Date V isits Requested Visits Authorized [id number] New Request 01/04/2023 01/29/2024 1 1 Specialty Diagnoses / Procedures Referred By Contac t Referred To Contact Multispecialty Diagnoses DDD (degenerative disc disease), cervical Cervical radiculopathy Diego Mckeon, GATE SHEAR OPERATOR-PUBLIC SPEAKING PROFESSOR [address] [place] [address] [facility] [address] [place] [address] Referral ID Status Reason Start Date Expiration Date V isits Requested Visits Authorized [id number] Pending Review 01/09/2023 02/03/2024 [address] Marley - schedule C7/T1 cervical epidural steroid injection- last injection was Jul 2021 and gave 75% relief for 5-6 months. Specialty Diagnoses / Procedures Referred By Contac t Referred To Contact Peripheral Vascular Diagnoses Right foot pain Procedures VASC DUPLEX ARTERIAL EXTREMITY LOWER RIGHT Yulia Pisano, GATE SHEAR OPERATOR-PUBLIC SPEAKING PROFESSOR [address] [facility] [address] [place] [address] Vascular Surg Ultrasound [place] [address] [place] [address] Referral ID Status Reason Start Date Expiration Date Visits Re quested Visits Authorized [id number] Closed 12/28/2022 01/22/2024 1 1 Specialty Diagnoses / Procedures Referred By Contac t Referred To Contact Diagnoses Panlobular emphysema Procedures OXYGEN TITRATION IN PULMONARY LAB Kamini Allen MBBS [address] [place] [address] Referral ID Status Reason Start Date Expiration Date V isits Requested Visits Authorized [id number] New Request 01/09/2023 02/03/2024 1 1 Specialty Diagnoses / Procedures Referred By Contac t Referred To Contact Diagnoses Panlobular emphysema Procedures EXERCISE-6 MIN. WALK Kamini Allen MBBS [address] [place] [address] Referral ID Status Reason Start Date Expiration Date V isits Requested Visits Authorized [id number] New Request 01/09/2023 02/03/2024 1 1 Specialty Diagnoses / Procedures Referred By Contac t Referred To Contact Diagnoses Panlobular emphysema Procedures PFT STANDARD Kamini Allen MBBS [address] [place], [place] [phone] Referral ID Status Reason Start Date Expiration Date V isits Requested Visits Authorized [id number] New Request 01/09/2023 02/03/2024 1 1 Referral ID Status Reason Start Date Expiration Date V isits Requested Visits Authorized [id number] New Request 01/09/2023 02/03/2024 1 1 Specialty Diagnoses / Procedures Referred By Contac t Referred To Contact Diagnoses DDD (degenerative disc disease), cervical Procedures [facility] Jonn Marley MD [address] [place] [address] Referral ID Status Reason Start Date Expiration Date V isits Requested Visits Authorized [id number] New Request 02/20/2023 03/16/2024 1 1 Specialty Diagnoses / Procedures Referred By Contac t Referred To Contact Diagnoses Screening for lung cancer Personal history of tobacco use, presenting hazards to health Procedures CT LUNG CANCER SCREENING CHG COMPUTED TOMOGRAPHY THORAX LW DOSE LNG CA SCR Radha- Kinsey Cason R, GATE SHEAR OPERATOR-PUBLIC SPEAKING PROFESSOR [address] [facility] [address] [place] [address] Referral ID Status Reason Start Date Expiration Date Visits Re quested Visits Authorized [id number] Closed 02/27/2023 03/23/2024 1 1 Referral ID Status Reason Start Date Expiration Date V isits Requested Visits Authorized [id number] New Request 03/13/2023 04/06/2024 1 1 Specialty Diagnoses / Procedures Referred By Contac t Referred To Contact Diagnoses Nodule of right lung Procedures CT CHEST WITHOUT CONTRAST CHG DIAGNOSTIC COMPUTED TOMOGRAPHY THORAX W/O CNTRST Kamini Allen, GEOVANNY [address] [facility] [address] [place] [address] Referral ID Status Reason Start Date Expiration Date V isits Requested Visits Authorized [id number] New Request 01/08/2024 02/01/2025 1 1 Referral ID Status Reason Start Date Expiration Date Visits Re quested Visits Authorized [id number] Closed 01/16/2024 02/09/2025 1 1 Chief Complaint and Reason for Visit Chief Complaint Admit Date Amb Documentation April 15, 2025 11 :00am LUNG CA April 20, 2025 9: 18am Reason for Visit Admit Date Adenocarcinoma of lower lobe of right milagros ng April 20, 2025 9:18am Adenocarcinoma of upper lobe of right milagros ng April 20, 2025 9:18am Additional Source Comments INFORMATION SOURCE (unrecogn ized section and content) DATE CREATED AUTHOR 01/07/2018 [facility] DATE CREATED AUTHOR AUTHOR'S ORGANIZ ATION 02/06/2020 [facility] DATE CREATED AUTHOR AUTHOR'S ORGANIZ ATION 05/30/2024 [facility] DATE CREATED AUTHOR AUTHOR'S ORGANIZ ATION 04/29/2025 [facility] DATE CREATED AUTHOR AUTHOR'S ORGANIZ ATION 04/29/2025 [facility] Reason for Visit (unrecogniz ed section and content) Reason Comments New Patient Referral Specialty Diagnoses / Procedures Referred By Contac t Referred To Contact Ophthalmology Diagnoses Hordeolum externum of left lower eyelid Imer Garcianah Claire, GATE SHEAR OPERATOR-PUBLIC SPEAKING PROFESSOR [address] [place] [address] Referral ID Status Reason Start Date Expiration Date V isits Requested Visits Authorized [id number] New Request 02/09/2023 03/05/2024 1 1 Status Reason Specialty Diagnoses / Procedures Referred By Contact Referred To Contact New Request Diagnoses Centrilobular emphysema Procedures PFT STANDARD Kamini Allen MBBS [address] [place] [address] Reason Comments Follow-up Specialty Diagnoses / Procedures Referred By Contac t Referred To Contact Rheumatology Diagnoses Interstitial granulomatous dermatitis Marisa Rowley MD [address] [address] Referral ID Status Reason Start Date Expiration Date V isits Requested Visits Authorized [id number] New Request 11/04/2020 11/29/2021 1 1 Reason Comments Chest Pain Shortness of Breath Specialty Diagnoses / Procedures Referred By Contac t Referred To Contact Referral ID Status Reason Start Date Expiration Date Visits Re quested Visits Authorized [id number] 1 1 Reason Comments Chronic Obstructive Pulmonary Disease Reason Comments Hypoxia Sent from [facility], oxygen 88% on room air, recently admitted here [facility] , this is why I have been admitted, does not wear oxygen at home. Currently on 2 liters 94% Referral ID Status Reason Start Date Expiration Date Visits Re quested Visits Authorized [id number] 1 1 Specialty Diagnoses / Procedures Referred By Contac t Referred To Contact Diagnoses Centrilobular emphysema Procedures OVERNIGHT PULSE OXIMETRY TEST Kamini Allen MBBS [address] [place] [address] Referral ID Status Reason Start Date Expiration Date V isits Requested Visits Authorized [id number] New Request 12/20/2021 01/14/2023 1 1 Specialty Diagnoses / Procedures Referred By Arnoldoac t Referred To Contact Diagnoses Solid nodule of lung 6 mm to 8 mm in diameter Procedures NUC PET OTHER CHG NUC THERAPY HYPERTHYROID SUBSEQUENT Central Scheduling [address] [place] [address] Referral ID Status Reason Start Date Expiration Date Visits Re quested Visits Authorized [id number] Closed 12/20/2021 01/14/2023 1 1 Specialty Diagnoses / Procedures Referred By Contac t Referred To Contact Diagnoses Lung nodule Procedures CT CHEST WITHOUT CONTRAST CHG DIAGNOSTIC COMPUTED TOMOGRAPHY THORAX W/O CNTRST Kamini Allen, MBBS [address] [place] [address] Referral ID Status Reason Start Date Expiration Date Visits Re quested Visits Authorized [id number] Closed 01/31/2022 02/25/2023 1 1 Reason Comments Physical Pt presents today fo r physical Headache Patient states she s till having really bad headaches. Reason Comments Neck Pain Specialty Diagnoses / Procedures Referred By Omar t Referred To Contact Neurology Diagnoses Cervicogenic headache Yulia Pisano, GATE SHEAR OPERATOR-PUBLIC SPEAKING PROFESSOR [address] [facility] [address] [place] [address] Referral ID Status Reason Start Date Expiration Date V isits Requested Visits Authorized [id number] New Request 11/07/2022 12/02/2023 1 1 Specialty Diagnoses / Procedures Referred By Contac t Referred To Contact Diagnoses Headache, chronic daily Procedures MRI BRAIN WITHOUT CONTRAST [place] MRI BRAIN Shweta Stoner MD [address] [place] [address] [address] [place] [address] Referral ID Status Reason Start Date Expiration Date Visits Re quested Visits Authorized [id number] Closed 11/21/2022 12/16/2023 1 1 Reason Comments Headache Pt presents today fo r a follow up visit. Specialty Diagnoses / Procedures Referred By Contac t Referred To Contact Diagnoses History of chondrosarcoma Osteoporosis without current pathological fracture, unspecified osteoporosis type Pain in right foot Chronic pain of right heel Procedures XR CHEST PA AND LATERAL Ana Cuevas APRN-PUBLIC SPEAKING PROFESSOR [address] [place] [address] Referral ID Status Reason Start Date Expiration Date V isits Requested Visits Authorized [id number] New Request 01/04/2023 01/29/2024 1 1 Reason Comments Follow-up Specialty Diagnoses / Procedures Referred By Omar t Referred To Contact Diagnoses Encounter for screening mammogram for malignant neoplasm of breast Procedures MAMMO SCREENING WITH TERI BILATERAL MAMMO SCREENING BILATERAL Yulia Pisano APRN-PUBLIC SPEAKING PROFESSOR [address] [facility] [address] [place], [place] [phone] Referral ID Status Reason Start Date Expiration Date V isits Requested Visits Authorized [id number] New Request 11/07/2022 12/02/2023 1 1 Specialty Diagnoses / Procedures Referred By Omar t Referred To Contact Peripheral Vascular Diagnoses Right foot pain Procedures VASC DUPLEX ARTERIAL EXTREMITY LOWER RIGHT Yulia Pisano APRN-PUBLIC SPEAKING PROFESSOR [address] [facility] [address] [place] [address] Vascular Surg Ultrasound [place] [address] [place] [address] Referral ID Status Reason Start Date Expiration Date Visits Re quested Visits Authorized [id number] Closed 12/28/2022 01/22/2024 1 1 Reason Comments Condition Update Specialty Diagnoses / Procedures Referred By Omar t Referred To Contact Diagnoses History of chondrosarcoma Osteoporosis without current pathological fracture, unspecified osteoporosis type Pain in right foot Chronic pain of right heel Acute right ankle pain Procedures MRI ANKLE RIGHT WITHOUT CONTRAST MRI ANKLE RIGHT WITH AND WITHOUT CONTRAST [place] MRI, JOINT OF LEG. COMBO [place] MRI LOWER EXTREM JT, W/O CONTRAST Ana Cuevas, GATE SHEAR OPERATOR-PUBLIC SPEAKING PROFESSOR [address] [place] [address] Referral ID Status Reason Start Date Expiration Date V isits Requested Visits Authorized [id number] New Request 01/04/2023 01/29/2024 1 1 Reason Comments Other JEANINE Specialty Diagnoses / Procedures Referred By Contac t Referred To Contact Multispecialty Diagnoses DDD (degenerative disc disease), cervical Cervical radiculopathy Diego Mckeon, GATE SHEAR OPERATOR-PUBLIC SPEAKING PROFESSOR [address] [place] [address] [facility] [address] [place] [address] Referral ID Status Reason Start Date Expiration Date Visits Re quested Visits Authorized [id number] Closed 01/09/2023 02/03/2024 1 1 Specialty Diagnoses / Procedures Referred By Contac t Referred To Contact Diagnoses DDD (degenerative disc disease), cervical Procedures [facility] Jonn Marley MD [address] [phone] Referral ID Status Reason Start Date Expiration Date V isits Requested Visits Authorized [id number] New Request 02/20/2023 03/16/2024 1 1 Reason Comments Pain Rt heel pain the rocio l turns black and blue swell. Wants to know why it is still swelling and turns black and blue. Specialty Diagnoses / Procedures Referred By Contac t Referred To Contact Orthopaedic Surgery Diagnoses History of chondrosarcoma Osteoporosis without current pathological fracture, unspecified osteoporosis type Pain in right foot Cigarette nicotine dependence without complication Ana Cuevas, GATE SHEAR OPERATOR-PUBLIC SPEAKING PROFESSOR [address] [place] [address] [address] [place] [address] Referral ID Status Reason Start Date Expiration Date V isits Requested Visits Authorized [id number] New Request 01/04/2023 01/29/2024 1 1 Specialty Diagnoses / Procedures Referred By Contac t Referred To Contact Diagnoses Screening for lung cancer Personal history of tobacco use, presenting hazards to health Procedures CT LUNG CANCER SCREENING CHG COMPUTED TOMOGRAPHY THORAX LW DOSE LNG CA ABHIJIT Garcia- Kinsey Cason, GATE SHEAR OPERATOR-PUBLIC SPEAKING PROFESSOR [address] [facility] [address] [place] [address] Referral ID Status Reason Start Date Expiration Date Visits Re quested Visits Authorized [id number] Closed 02/27/2023 03/23/2024 1 1 Reason Onset Date Comments Insurance 03/01/2023 Reason Comments Cancer Screening Specialty Diagnoses / Procedures Referred By Contac t Referred To Contact Pulmonary Diagnostics Diagnoses Cigarette nicotine dependence without complication Ana Cuevas, GATE SHEAR OPERATOR-PUBLIC SPEAKING PROFESSOR [address] [place] [address] Referral ID Status Reason Start Date Expiration Date V isits Requested Visits Authorized [id number] New Request 01/04/2023 01/29/2024 1 1 Reason Comments Other New Patient Reason Comments Headache Follow up Reason Comments Physical Patient presents tod ay for physical Reason Comments Hand Swelling Specialty Diagnoses / Procedures Referred By Contac t Referred To Contact Diagnoses Panlobular emphysema Procedures PFT STANDARD Kamini Allen MBBS [address] [place] [address] Referral ID Status Reason Start Date Expiration Date V isits Requested Visits Authorized [id number] New Request 01/09/2023 02/03/2024 1 1 Specialty Diagnoses / Procedures Referred By Contac t Referred To Contact Diagnoses Panlobular emphysema Procedures EXERCISE-6 MIN. WALK Kamini Allen MBBS [address] [place] [address] Referral ID Status Reason Start Date Expiration Date V isits Requested Visits Authorized [id number] New Request 01/09/2023 02/03/2024 1 1 Specialty Diagnoses / Procedures Referred By Contac t Referred To Contact Diagnoses Panlobular emphysema Procedures OXYGEN TITRATION IN PULMONARY LAB Kamini Allen MBBS [address] [place], [place] [address] Referral ID Status Reason Start Date Expiration Date V isits Requested Visits Authorized [id number] New Request 01/09/2023 02/03/2024 1 1 Reason Comments Follow-up 1 yr follow-uppft th is morning Specialty Diagnoses / Procedures Referred By Contac t Referred To Contact Diagnoses Nodule of right lung Procedures CT CHEST WITHOUT CONTRAST CHG DIAGNOSTIC COMPUTED TOMOGRAPHY THORAX W/O CNTRST Kamini Allen MBBS [address]rd [place] [address] Referral ID Status Reason Start Date Expiration Date Visits Re quested Visits Authorized [id number] Closed 01/16/2024 02/09/2025 1 1 Reason Comments New Patient Specialty Diagnoses / Procedures Referred By Contac t Referred To Contact Orthopaedic Surgery / Orthopaedics Diagnoses *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 Seen in ED on 01/08/24. [facility] Procedures NEW PATIENT - ONCOLOGY Jyoti Gavin MD [address] [place] [address] Brad Whitaker MD [address] [place] [address] Referral ID Status Reason Start Date Expiration Date V isits Requested Visits Authorized [id number] New Request 01/28/2024 02/21/2025 1 1 Reason Comments Physical Pt presents today fo r a physical Medication Refill Reason Comments Follow-up Reason Comments New Patient Specialty Diagnoses / Procedures Referred By Contac t Referred To Contact Pulmonary Disease Diagnoses Pulmonary nodule Bran Currie MD [address] [place] [address] Phone: tel: fax: Referral ID Status Reason Start Date Expiration Date V isits Requested Visits Authorized [id number] New Request 01/28/2025 02/22/2026 1 1 Reason Comments Heart Problem Patient states no co mplaints or concerns Specialty Diagnoses / Procedures Referred By Contac t Referred To Contact Cardiovascular Medicine Diagnoses Panlobular emphysema Right upper lobe pulmonary nodule Coronary artery ectasia Shwetha Allen MBBS [address] [place] [address] Phone: tel: fax: Referral ID Status Reason Start Date Expiration Date V isits Requested Visits Authorized [id number] New Request 03/10/2025 04/04/2026 1 1 Reason Comments Consult Specialty Diagnoses / Procedures Referred By Contac t Referred To Contact Radiation Oncology Diagnoses Adenocarcinoma of right lung Cloyes, Savi Moore GATE SHEAR OPERATOR-PUBLIC SPEAKING PROFESSOR [address] [place], [place] [phone] Phone: tel: fax: Referral ID Status Reason Start Date Expiration Date V isits Requested Visits Authorized [id number] New Request 04/07/2025 05/02/2026 1 1 Reason Comments New Patient Specialty Diagnoses / Procedures Referred By Contac t Referred To Contact Thoracic Surgery Diagnoses Adenocarcinoma of right lung Cloyes, Savi Moore GATE SHEAR OPERATOR-PUBLIC SPEAKING PROFESSOR [address] [place] [address] Phone: tel: fax: Referral ID Status Reason Start Date Expiration Date V isits Requested Visits Authorized [id number] New Request 04/07/2025 05/02/2026 1 1 Care Teams (unrecognized sec tion and content) [employer] Officer Relationship Specialty Start Date End Date Yulia Pisano GATE SHEAR OPERATOR-PUBLIC SPEAKING PROFESSOR [address] [address] PCP - General Certified Nurse Practitioner 12/30/20 [employer] Officer Relationship Specialty Start Date End Date Yulia Pisano GATE SHEAR OPERATOR-PUBLIC SPEAKING PROFESSOR [address] [address] PCP - General Certified Nurse Practitioner 12/30/20 Meaghan Chambers APRN-PUBLIC SPEAKING PROFESSOR [address] [place] [address] Nurse Practitioner Rheumatology 11/10/21 Martin Gilbert MD [address] [place] [address] Sports Internship Physical Medicine & Rehabilitation 11/10/21 Dior Mcgee MD [address] [facility] [address] [place] [address] Front Office Spec Dermatology 11/10/21 [employer] Officer Relationship Specialty Start Date End Date Yulia Pisano GATE SHEAR OPERATOR-PUBLIC SPEAKING PROFESSOR [address] [address] PCP - General Certified Nurse Practitioner 12/30/20 Meaghan Chambers APRN-PUBLIC SPEAKING PROFESSOR [address] [place] [address] Nurse Practitioner Rheumatology 11/10/21 Martin Gilbert MD [address] [place] [address] Sports Internship Physical Medicine & Rehabilitation 11/10/21 Dior Mcgee MD [address] [facility] [address] [place] [address] Front Office Spec Dermatology 11/10/21 [employer] Officer Relationship Specialty Start Date End Date Yuila Pisano GATE SHEAR OPERATOR-PUBLIC SPEAKING PROFESSOR [address] [address] PCP - General Certified Nurse Practitioner 12/30/20 Meaghan Chambers APRN-PUBLIC SPEAKING PROFESSOR [address] [place] [address] Nurse Practitioner Rheumatology 11/10/21 Martin Gilbert MD [address] [place] [address] Sports Internship Physical Medicine & Rehabilitation 11/10/21 Dior Mcgee MD [address] [place] [address] Front Office Spec Dermatology 11/10/21 [employer] Officer Relationship Specialty Start Date End Date Cleves, Yulia R, GATE SHEAR OPERATOR-PUBLIC SPEAKING PROFESSOR [address] [place] [address] PCP - General Certified Nurse Practitioner 12/30/20 Meaghan Chambers GATE SHEAR OPERATOR-PUBLIC SPEAKING PROFESSOR [address] [place] [address] Nurse Practitioner Rheumatology 11/10/21 Martin Gilbert MD [address] [place] [address] Sports Internship Physical Medicine & Rehabilitation 11/10/21 Dior Mcgee MD [address] [place] [address] Front Office Spec Dermatology 11/10/21 [employer] Officer Relationship Specialty Start Date End Date Aliya, Yulia R, GATE SHEAR OPERATOR-PUBLIC SPEAKING PROFESSOR [address] [address] PCP - General Certified Nurse Practitioner 12/30/20 Meaghan Chambers GATE SHEAR OPERATOR-PUBLIC SPEAKING PROFESSOR [address] [place] [address] Nurse Practitioner Rheumatology 11/10/21 Martin Gilbert MD [address] [place] [address] Sports Internship Physical Medicine & Rehabilitation 11/10/21 Dior Mcgee MD [address] [place] [address] Front Office Spec Dermatology 11/10/21 [employer] Officer Relationship Specialty Start Date End Date Yulia Pisano GATE SHEAR OPERATOR-PUBLIC SPEAKING PROFESSOR [address] [place] [address] PCP - General Certified Nurse Practitioner 12/30/20 Meaghan Chambers GATE SHEAR OPERATOR-PUBLIC SPEAKING PROFESSOR [address] [place] [address] Nurse Practitioner Rheumatology 11/10/21 Martin Gilbert MD [address] [place] [address] Sports Internship Physical Medicine & Rehabilitation 11/10/21 Dior Mcgee MD [address] [place] [address] Front Office Spec Dermatology 11/10/21 [employer] Officer Relationship Specialty Start Date End Date Yulia Pisano GATE SHEAR OPERATOR-PUBLIC SPEAKING PROFESSOR [address] [address] PCP - General Certified Nurse Practitioner 12/30/20 Meaghan Chambers GATE SHEAR OPERATOR-PUBLIC SPEAKING PROFESSOR [address] [place] [address] Nurse Practitioner Rheumatology 11/10/21 Martin Gilbert MD [address] [place] [address] Sports Internship Physical Medicine & Rehabilitation 11/10/21 Dior Mcgee MD [address] [place] [address] Front Office Spec Dermatology 11/10/21 [employer] Officer Relationship Specialty Start Date End Date Yulia Pisano GATE SHEAR OPERATOR-PUBLIC SPEAKING PROFESSOR [address] [address] PCP - General Certified Nurse Practitioner 12/30/20 Meaghan Chambers APRN-PUBLIC SPEAKING PROFESSOR [address] [place] [address] Nurse Practitioner Rheumatology 11/10/21 Martin Gilbert MD [address] [place] [address] Sports Internship Physical Medicine & Rehabilitation 11/10/21 Dior Mcgee MD [address] [place] [address] Front Office Spec Dermatology 11/10/21 [employer] Officer Relationship Specialty Start Date End Date Yulia Pisano APRN-PUBLIC SPEAKING PROFESSOR [address] [address] PCP - General Certified Nurse Practitioner 12/30/20 Meaghan Chambers APRN-CNP [address] [place] [address] Nurse Practitioner Rheumatology 11/10/21 Martin Gilbert MD [address] [place] [address] Sports Internship Physical Medicine & Rehabilitation 11/10/21 Dior Mcgee MD [address] [place] [address] Front Office Spec Dermatology 11/10/21 [employer] Officer Relationship Specialty Start Date End Date Yulia Pisano APRN-PUBLIC SPEAKING PROFESSOR [address] [address] PCP - General Certified Nurse Practitioner 12/30/20 Meaghan Chambers APRN-PUBLIC SPEAKING PROFESSOR [address] [phone] Nurse Practitioner Rheumatology 11/10/21 Martin Gilbert MD [address] [phone] Sports Internship Physical Medicine & Rehabilitation 11/10/21 Dior Mcgee MD [address] [place] [address] Front Office Spec Dermatology 11/10/21 [employer] Officer Relationship Specialty Start Date End Date Yulia Pisano APRN-PUBLIC SPEAKING PROFESSOR [address] [place] [address] PCP - General Certified Nurse Practitioner 12/30/20 Meaghan Chambers APRN-PUBLIC SPEAKING PROFESSOR [address] [phone] Nurse Practitioner Rheumatology 11/10/21 Martin Gilbert MD [address] [phone] Sports Internship Physical Medicine & Rehabilitation 11/10/21 Dior Mcgee MD [address] [place] [address] Front Office Spec Dermatology 11/10/21 [employer] Officer Relationship Specialty Start Date End Date Yulia Pisano APRN-PUBLIC SPEAKING PROFESSOR [address] [phone] PCP - General Certified Nurse Practitioner 12/30/20 Meaghan Chambers APRN-CNP [address] [phone] Nurse Practitioner Rheumatology 11/10/21 Martin Gilbert MD [address] [phone] Sports Internship Physical Medicine & Rehabilitation 11/10/21 Dior Mcgee MD [address] [place] [address] Front Office Spec Dermatology 11/10/21 [employer] Officer Relationship Specialty Start Date End Date Yulia Pisano APRN-PUBLIC SPEAKING PROFESSOR [address] [place] [address] PCP - General Certified Nurse Practitioner 12/30/20 Meaghan Chambers APRN-CNP [address] [phone] Nurse Practitioner Rheumatology 11/10/21 Martin Gilbert MD [address] [phone] Sports Internship Physical Medicine & Rehabilitation 11/10/21 Dior Mcgee MD [address] [place] [address] Front Office Spec Dermatology 11/10/21 [employer] Officer Relationship Specialty Start Date End Date Yulia Pisano APRN-PUBLIC SPEAKING PROFESSOR [address] [place] [address] PCP - General Certified Nurse Practitioner 12/30/20 Meaghan Chambers APRN-CNP [address] [place] [address] Nurse Practitioner Rheumatology 11/10/21 Martin Gilbert MD [address] [place] [address] Sports Internship Physical Medicine & Rehabilitation 11/10/21 Dior Mcgee MD [address] [place] [address] Front Office Spec Dermatology 11/10/21 [employer] Officer Relationship Specialty Start Date End Date Yulia Pisano APRN-PUBLIC SPEAKING PROFESSOR [address] [id number] PCP - General Certified Nurse Practitioner 12/30/20 Meaghan Chambers APRN-CNP [address] [place] [phone] Nurse Practitioner Rheumatology 11/10/21 Martin Gilbert MD [address] [place] [phone] Sports Internship Physical Medicine & Rehabilitation 11/10/21 Dior Mcgee MD [address] [place] [address] Front Office Spec Dermatology 11/10/21 [employer] Officer Relationship Specialty Start Date End Date Yulia Pisano APRN-PUBLIC SPEAKING PROFESSOR [address] [phone] [place] [address] PCP - General Certified Nurse Practitioner 12/30/20 Meaghan Chambers APRN-PUBLIC SPEAKING PROFESSOR [address] [place] [phone] Nurse Practitioner Rheumatology 11/10/21 Martin Gilbert MD [address] [place] [phone] Sports Internship Physical Medicine & Rehabilitation 11/10/21 Dior Mcgee MD [address] [place] [address] Front Office Spec Dermatology 11/10/21 [employer] Officer Relationship Specialty Start Date End Date Yulia Pisano GATE SHEAR OPERATOR-PUBLIC SPEAKING PROFESSOR [address] [id number] PCP - General Certified Nurse Practitioner 12/30/20 Meaghan Chambers APRN-PUBLIC SPEAKING PROFESSOR [address] [phone] Nurse Practitioner Rheumatology 11/10/21 Martin Gilbert MD [address] [place] [phone] Sports Internship Physical Medicine & Rehabilitation 11/10/21 Dior Mcgee MD [address] [place] [address] Front Office Spec Dermatology 11/10/21 [employer] Officer Relationship Specialty Start Date End Date Yulia Pisano APRN-PUBLIC SPEAKING PROFESSOR [address] [id number] [place] [id number] PCP - General Certified Nurse Practitioner 12/30/20 Meaghan Chambers APRN-PUBLIC SPEAKING PROFESSOR [address] [phone] Nurse Practitioner Rheumatology 11/10/21 Martin Gilbert MD [address] [phone] Sports Internship Physical Medicine & Rehabilitation 11/10/21 Dior Mcgee MD [address] [place] [address] Front Office Spec Dermatology 11/10/21 [employer] Officer Relationship Specialty Start Date End Date Yulia Pisano APRN-PUBLIC SPEAKING PROFESSOR [address] [place] [address] PCP - General Certified Nurse Practitioner 12/30/20 Meaghan Chambers GATE SHEAR OPERATOR-PUBLIC SPEAKING PROFESSOR [address] [phone] Nurse Practitioner Rheumatology 11/10/21 Martin Gilbert MD [address] [place] [address] Sports Internship Physical Medicine & Rehabilitation 11/10/21 Dior Mcgee MD [address] [place] [address] Front Office Spec Dermatology 11/10/21 [employer] Officer Relationship Specialty Start Date End Date Yulia Pisano APRN-PUBLIC SPEAKING PROFESSOR [address] [place] [address] PCP - General Certified Nurse Practitioner 12/30/20 Meaghan Chambers APRN-PUBLIC SPEAKING PROFESSOR [address] [phone] Nurse Practitioner Rheumatology 11/10/21 Martin Gilbert MD [address] [place] [address] Sports Internship Physical Medicine & Rehabilitation 11/10/21 Dior Mcgee MD [address] [place] [address] Front Office Spec Dermatology 11/10/21 [employer] Officer Relationship Specialty Start Date End Date Yulia Pisano APRN-PUBLIC SPEAKING PROFESSOR [address] [place] [address] PCP - General Certified Nurse Practitioner 12/30/20 Meaghan Chambers GATE SHEAR OPERATOR-PUBLIC SPEAKING PROFESSOR [address] [phone] Nurse Practitioner Rheumatology 11/10/21 Martin Gilbert MD [address] [place] [address] Sports Internship Physical Medicine & Rehabilitation 11/10/21 Dior Mcgee MD [address] [place] [address] Front Office Spec Dermatology 11/10/21 [employer] Officer Relationship Specialty Start Date End Date Yulia Pisano APRN-CNP [address] [address] PCP - General Certified Nurse Practitioner 12/30/20 Meaghan Chambers APRN-PUBLIC SPEAKING PROFESSOR [address] [phone] Nurse Practitioner Rheumatology 11/10/21 Martin Gilbert MD [address] [phone] Sports Internship Physical Medicine & Rehabilitation 11/10/21 Dior Mcgee MD [address] [place] [phone] Front Office Spec Dermatology 11/10/21 [employer] Officer Relationship Specialty Start Date End Date Yulia Pisano APRN-CNP [address] [phone] PCP - General Certified Nurse Practitioner 12/30/20 Meaghan Chambers APRN-PUBLIC SPEAKING PROFESSOR [address] [place] [phone] Nurse Practitioner Rheumatology 11/10/21 Martin Gilbert MD [address] [place] [phone] Sports Internship Physical Medicine & Rehabilitation 11/10/21 Dior Mcgee MD [address] [place] [address] Front Office Spec Dermatology 11/10/21 [employer] Officer Relationship Specialty Start Date End Date Yulia Pisano APRN-CNP [address] 7[address] [place] [address] PCP - General Certified Nurse Practitioner 12/30/20 Meaghan Chambers APRN-CNP [address] [place] [phone] Nurse Practitioner Rheumatology 11/10/21 Martin Gilbert MD [address] [phone] Sports Internship Physical Medicine & Rehabilitation 11/10/21 Dior Mcgee MD [facility] [address] [phone] Front Office Spec Dermatology 11/10/21 [employer] Officer Relationship Specialty Start Date End Date Yulia Pisano APRN-CNP [address] [phone] PCP - General Certified Nurse Practitioner 12/30/20 Meaghan Chambers APRN-PUBLIC SPEAKING PROFESSOR [address] [place] [phone] Nurse Practitioner Rheumatology 11/10/21 Martin Gilbert MD [address] [place] [phone] Sports Internship Physical Medicine & Rehabilitation 11/10/21 Dior Mcgee MD [address] [phone] Front Office Spec Dermatology 11/10/21 [employer] Officer Relationship Specialty Start Date End Date Yulia Pisano APRN-PUBLIC SPEAKING PROFESSOR [address] [place] [address] PCP - General Certified Nurse Practitioner 12/30/20 Meaghan Chambers GATE SHEAR OPERATOR-PUBLIC SPEAKING PROFESSOR [address] [phone] Nurse Practitioner Rheumatology 11/10/21 Martin Gilbert MD [address] [phone] Sports Internship Physical Medicine & Rehabilitation 11/10/21 Dior Mcgee MD [address] [phone] Front Office Spec Dermatology 11/10/21 [employer] Officer Relationship Specialty Start Date End Date Yulia Pisano APRN-PUBLIC SPEAKING PROFESSOR [address] [place] [address] PCP - General Certified Nurse Practitioner 12/30/20 Meaghan Chambers GATE SHEAR OPERATOR-PUBLIC SPEAKING PROFESSOR [address] [phone] Nurse Practitioner Rheumatology 11/10/21 Martin Gilbert MD [address] [place] [phone] Sports Internship Physical Medicine & Rehabilitation 11/10/21 Dior Mcgee MD [address] [place] [address] Front Office Spec Dermatology 11/10/21 [employer] Officer Relationship Specialty Start Date End Date Yulia Pisano GATE SHEAR OPERATOR-PUBLIC SPEAKING PROFESSOR [address] [address] PCP - General Certified Nurse Practitioner 12/30/20 Meaghan Chambers GATE SHEAR OPERATOR-PUBLIC SPEAKING PROFESSOR [address] [place] [phone] Nurse Practitioner Rheumatology 11/10/21 Martin Gilbert MD [address] [phone] Sports Internship Physical Medicine & Rehabilitation 11/10/21 Dior Mcgee MD [address] [phone] Front Office Spec Dermatology 11/10/21 [employer] Officer Relationship Specialty Start Date End Date Yulia Pisano GATE SHEAR OPERATOR-PUBLIC SPEAKING PROFESSOR [address] [place] [address] PCP - General Certified Nurse Practitioner 12/30/20 Meaghan Chambers GATE SHEAR OPERATOR-PUBLIC SPEAKING PROFESSOR [address] [place] [phone] Nurse Practitioner Rheumatology 11/10/21 Martin Gilbert MD [address] [place] [phone] Sports Internship Physical Medicine & Rehabilitation 11/10/21 Dior Mcgee MD [address] [place] [address] Front Office Spec Dermatology 11/10/21 [employer] Officer Relationship Specialty Start Date End Date Yulia Pisano GATE SHEAR OPERATOR-PUBLIC SPEAKING PROFESSOR [address] [address] PCP - General Certified Nurse Practitioner 12/30/20 Meaghan Chambers GATE SHEAR OPERATOR-PUBLIC SPEAKING PROFESSOR [address] [place] [phone] Nurse Practitioner Rheumatology 11/10/21 Martin Gilbert MD [address] [phone] Sports Internship Physical Medicine & Rehabilitation 11/10/21 Dior Mcgee MD [address] [phone] Front Office Spec Dermatology 11/10/21 [employer] Officer Relationship Specialty Start Date End Date Yulia Pisano GATE SHEAR OPERATOR-PUBLIC SPEAKING PROFESSOR [address] [address] PCP - General Certified Nurse Practitioner 12/30/20 Meaghan Chambers GATE SHEAR OPERATOR-PUBLIC SPEAKING PROFESSOR [address] [phone] Nurse Practitioner Rheumatology 11/10/21 Martin Gilbert MD [address] [place] [phone] Sports Internship Physical Medicine & Rehabilitation 11/10/21 Dior Mcgee MD [address] [place] [address] Front Office Spec Dermatology 11/10/21 [employer] Officer Relationship Specialty Start Date End Date Yulia Pisano APRN-PUBLIC SPEAKING PROFESSOR [address] [address] PCP - General Certified Nurse Practitioner 12/30/20 Meaghan Chambers APRN-PUBLIC SPEAKING PROFESSOR [address] [address] Nurse Practitioner Rheumatology 11/10/21 Martin Gilbert MD [address] [place], [place] [phone] Sports Internship Physical Medicine & Rehabilitation 11/10/21 Dior Mcgee MD [address] [place], [place] [phone] Front Office Spec Dermatology 11/10/21 [employer] Officer Relationship Specialty Start Date End Date Yulia Pisano APRN-PUBLIC SPEAKING PROFESSOR [address] [place] [address] PCP - General Certified Nurse Practitioner 12/30/20 Meaghan Chambers APRN-PUBLIC SPEAKING PROFESSOR [address] [place] [address] Nurse Practitioner Rheumatology 11/10/21 Martin Gilbert MD [address] [place] [phone] Sports Internship Physical Medicine & Rehabilitation 11/10/21 Dior Mcgee MD [address] [place] [phone] Front Office Spec Dermatology 11/10/21 [employer] Officer Relationship Specialty Start Date End Date Yulia Pisano APRN-CNP [address] [place] [address] PCP - General Certified Nurse Practitioner 12/30/20 Meaghan Chambers APRN-CNP [address] [phone] Nurse Practitioner Rheumatology 11/10/21 Martin Gilbert MD [address] [place], [place] [phone] Sports Internship Physical Medicine & Rehabilitation 11/10/21 Dior Mcgee MD [address] [place], [place] [phone] Front Office Spec Dermatology 11/10/21 [employer] Officer Relationship Specialty Start Date End Date Yulia Pisano APRN-CNP PCP - General Certified Nurse Practitioner 12/30/20 [facility], Other [address] [phone] PCP - Family Medicine Family Medicine 02/13/25 Meaghan Chambers APRN-PUBLIC SPEAKING PROFESSOR Nurse Practitioner Rheumatology 11/10/21 Martin Gilbert MD Sports Internship Physical Medicine & Rehabilitation 11/10/21 Dior Mcgee MD Front Office Spec Dermatology 11/10/21 [employer] Officer Relationship Specialty Start Date End Date Yulia Pisano APRN-CNP PCP - General Certified Nurse Practitioner 12/30/20 [facility], Other [address] [place] [address] PCP - Family Medicine Family Medicine 02/13/25 Meaghan Chambers APRN-PUBLIC SPEAKING PROFESSOR Nurse Practitioner Rheumatology 11/10/21 Martin Gilbert MD Sports Internship Physical Medicine & Rehabilitation 11/10/21 Dior Mcgee MD Front Office Spec Dermatology 11/10/21 [employer] Officer Relationship Specialty Start Date End Date Yulia Pisano APRN-PUBLIC SPEAKING PROFESSOR PCP - General Certified Nurse Practitioner 12/30/20 [facility], Other [address] [address] PCP - Family Medicine Family Medicine 02/13/25 Meaghan Chambers APRN-PUBLIC SPEAKING PROFESSOR Nurse Practitioner Rheumatology 11/10/21 Martin Gilbert MD Sports Internship Physical Medicine & Rehabilitation 11/10/21 Dior Mcgee MD Front Office Spec Dermatology 11/10/21 [employer] Officer Relationship Specialty Start Date End Date Yulia Pisano APRN-CNP PCP - General Certified Nurse Practitioner 12/30/20 [facility], Other [address] [place] [address] PCP - Family Medicine Family Medicine 02/13/25 Meaghan Chambers APRN-PUBLIC SPEAKING PROFESSOR Nurse Practitioner Rheumatology 11/10/21 Martin Gilbert MD Sports Internship Physical Medicine & Rehabilitation 11/10/21 Dior Mcgee MD Front Office Spec Dermatology 11/10/21 [employer] Officer Relationship Specialty Start Date End Date Yulia Pisano APRN-PUBLIC SPEAKING PROFESSOR PCP - General Certified Nurse Practitioner 12/30/20 [facility], Other [address] [address] PCP - Family Medicine Family Medicine 02/13/25 Meaghan Chambers APRN-PUBLIC SPEAKING PROFESSOR Nurse Practitioner Rheumatology 11/10/21 Martin Gilbert MD Sports Internship Physical Medicine & Rehabilitation 11/10/21 Dior Mcgee MD Front Office Spec Dermatology 11/10/21 [employer] Officer Relationship Specialty Start Date End Date Yulia Pisano APRN-CNP PCP - General Certified Nurse Practitioner 12/30/20 [facility], Other [address] [place] [address] PCP - Family Medicine Family Medicine 02/13/25 Meaghan Chambers APRN-PUBLIC SPEAKING PROFESSOR Nurse Practitioner Rheumatology 11/10/21 Martin Gilbert MD Sports Internship Physical Medicine & Rehabilitation 11/10/21 Dior Mcgee MD Front Office Spec Dermatology 11/10/21 [employer] Officer Relationship Specialty Start Date End Date Yulia Pisano APRN-PUBLIC SPEAKING PROFESSOR PCP - General Certified Nurse Practitioner 12/30/20 [facility], Other [address] [address] PCP - Family Medicine Family Medicine 02/13/25 Meaghan Chambers APRN-PUBLIC SPEAKING PROFESSOR Nurse Practitioner Rheumatology 11/10/21 Martin Gilbert MD Sports Internship Physical Medicine & Rehabilitation 11/10/21 Dior Mcgee MD Front Office Spec Dermatology 11/10/21 Team Status: Active Member Role/Relationship Status Dates Nai Menjivar Attending physician Active Start: April 15, 2025 Team Status: Inactive Member Role/Relationship Status Dates Dr. Roddy Garay DO Attending physician Active Start: April 20, 2025 End: April 20, 2025 CINDY ALONZO Referring Provider Active Start: Oc tober 2024 End: April 20, 2025 [employer] Officer Relationship Specialty Start Date End Date Yulia Pisano APRN-PUBLIC SPEAKING PROFESSOR PCP - General Certified Nurse Practitioner 12/30/20 [facility] [address] [place] [address] PCP - Family Medicine Family Medicine 02/13/25 Meaghan Chambers APRN-PUBLIC SPEAKING PROFESSOR Nurse Practitioner Rheumatology 11/10/21 Martin Gilbert MD Sports Internship Physical Medicine & Rehabilitation 11/10/21 Dior Mcgee MD Front Office Spec Dermatology 11/10/21 Scheduled Active and Recently Administ ered Medications (unrecognized section and content) Medication Order 11/09/2021 11/10/2021 11/11/2021 budesonide (PULMICORT) nebulizer suspension 0.5 mg 0.5 mg, Inhalation, EVERY 12 HOURS, First dose on Sun11/11/21 at 0945, Until Discontinued 1200 (Given - Provider: William Poole, [employer] Permit [employer]) calcium citrate-vitamin D 315-250 MG-UNIT per tablet 2 tablet 2 tablet, Oral, DAILY AT BEDTIME, First dose on Safia 11/10/21 at 0030, Until Discontinued 0101 (Given - Provider: Nataly Rader RN)2258 (Given - Provider: Attila Rivas, ANGELITA) doxycycline monohydrate (MONODOX) capsule 100 mg 100 mg, Oral, EVERY 12 HOURS, 10 doses, First dose on Sun11/10/21 at 1100, Last dose on Sun11/14/21 at 2100, Avoid antacid, iron, and sucralfate administration for 1 hour before and 2 hours after dose 1108 (Given - Provider: Tiffanie Greene RN)2258 (Given - Provider: Attila Rivas RN) 0836 (Given - Provider: Alissa Price, RN) fluticasone (FLONASE) 50 MCG/ACT nasal spray 1 spray 1 spray, Nasal, DAILY, First dose on Sun11/10/21 at 0900, Until Discontinued, Dose is for each nostril. 1015 (Given - Provider: Tiffanie Greene RN) 0837 (Given - Provider: Alissa Price, ANGELITA) ipratropium-albuterol (DUONEB) 0.5-2.5 (3) MG/3ML nebulizer solution 3 mL (COMPLETED) 3 mL, Nebulization, EVERY 5 MINUTES, 3 doses, First dose on Sun11/09/21 at 2015, Last dose on Sun11/09/21 at 2024 2009 (Given - Provider: Komal Valencia RCP)2011 (Given - Provider: Komal Valencia RCP)2013 (Given - Provider: Komal Valencia RCP) ipratropium-albuterol (DUONEB) 0.5-2.5 (3) MG/3ML nebulizer solution 3 mL (CANCELED) 3 mL, Nebulization, EVERY 6 HOURS NON-STANDARD, First dose on Sun11/10/21 at 0200, Until Discontinued 0040 (Given - Provider: Komal Valencia RCP)0749 (Given - Provider: Saravanan Lopez RCP)1357 (Given - Provider: Saravanan Lopez RCP)2053 (Given - Provider: Kacie Wooten RCP) 0230 (Given - Provider: Kacie Wooten RCP)0747 (Given - Provider: William Poole, [employer] Permit [employer]) lactated ringers IV solution 1,000 mL (COMPLETED) 1,000 mL, Intravenous, ONCE, 1 dose, On Sun11/10/21 at 1100, Fluid Bolus 1051 ($$New Bag$$ - Provider: Tiffanie Greene, RN)1402 (Stopped - Provider: Tiffanie Greene RN) predniSONE (DELTASONE) tablet 40 mg 40 mg, Oral, DAILY, 5 doses, First dose (after last modification) on Sun11/09/21 at 2015, Last dose on Sun11/13/21 at 0900 2048 (Given - Provider: Nataly Rader, ANGELITA) 0901 (Given - Provider: Tiffanie Greene, ANGELITA) 0837 (Given - Provider: Alissa Price, ANGELITA) tiotropium (SPIRIVA RESPIMAT) inhaler 2 puff 2 puff, Inhalation, DAILY, First dose on Sun11/10/21 at 0900, Until Discontinued, For self-administered inhalers, contact Respiratory Therapy for canister activation. 0751 (Given - Provider: Saravanan Lopez RCP) 0788 (Given - Provider: William Poole, [employer] Permit [employer]) PRN Medication Order 11/09/2021 11/10/2021 11/11/2021 acetaminophen (TYLENOL) tablet 650 mg 650 mg, Oral, EVERY 6 HOURS NEEDED, Starting on Safia 11/10/21 at 0000, Until Sun11/11/21 at 1745, Mild Pain, Oral temp > 100.4 F, Do not administer if liver disease or elevated Liver Function Tests. alum/mag hydrox.-simethicone oral suspension 30 mL 30 mL, Oral, EVERY 6 HOURS NEEDED, Starting on Sun11/10/21 at 0000, Until Sun11/11/21 at 1745, Indigestion, Per 5 mL is equivalent to: (Alum-Mag Hydroxide 200-225 mg and Simethicone 20 mg) and (Alum-Mag Hydroxide 200-200 mg and Simethicone 20 mg) benzocaine-menthol (CEPACOL) 15-3.6 MG per lozenge 1 lozenge 1 lozenge, Oral, EVERY 2 HOURS NEEDED, Starting on Safia 11/10/21 at 1228, Until Sun11/11/21 at 1745, Sore Throat, Max 8 lozenges/day Patient may self-administer. guaiFENesin (ROBITUSSIN) oral solution 400 mg 400 mg, Oral, EVERY 6 HOURS NEEDED, Starting on Sun11/10/21 at 1228, Until Sun11/11/21 at 1745, Cough, Congestion ipratropium-albuterol (DUONEB) 0.5-2.5 (3) MG/3ML nebulizer solution 3 mL 3 mL, Nebulization, EVERY 4 HOURS NEEDED, Starting on Sun11/11/21 at 0945, Until Sun11/11/21 at 1745, Wheezing, Respiratory Distress, Breathing Treatment, Cough, Shortness of Breath melatonin tablet 6 mg 6 mg, Oral, DAILY AT BEDTIME NEEDED, Starting on Sun11/10/21 at 1228, Until Sun11/11/21 at 1745, Insomnia nicotine (NICODERM CQ) 21 MG/24HR patch 1 patch 1 patch, Transdermal, EVERY 24 HOURS NEEDED, Starting on Sun11/11/21 at 0939, Until Sun11/11/21 at 1745, Smoking cessation, Apply patch to hairless skin site on upper body or arm. Rotate sites for each application. Do not cut or alter patch. Remove patch after duration of 16-24 hours. To dispose, fold adhesive ends together. ondansetron (ZOFRAN) tablet 4 mg(Linked Group 1) 4 mg, Oral, EVERY 6 HOURS NEEDED, Starting on Sun11/10/21 at 1228, Until Sun11/11/21 at 1745, Nausea / Vomiting ondansetron 4mg/2ml (ZOFRAN) injection 4 mg(Linked Group 1) 4 mg, Intravenous, EVERY 6 HOURS NEEDED, Starting on Sun11/10/21 at 1228, Until Sun11/11/21 at 1745, Nausea / Vomiting Polyvinyl Alcohol-Povidone PF (REFRESH) ophthalmic solution 1 drop 1 drop, Both Eyes, EVERY 1 HOUR NEEDED, Starting on Sun11/10/21 at 1228, Until Sun11/11/21 at 1745, Dry Eyes, Patient may self-administer. prochlorperazine (COMPAZINE) suppository 25 mg(Linked Group 2) 25 mg, Rectal, 2 TIMES DAILY NEEDED, Starting on Sun11/10/21 at 1228, Until Sun11/11/21 at 1745, Refractory Nausea Vomiting, 2nd line for nausea/vomiting prochlorperazine (COMPAZINE) tablet 10 mg(Linked Group 2) 10 mg, Oral, EVERY 6 HOURS NEEDED, Starting on Sun11/10/21 at 1228, Until Sun11/11/21 at 1745, Refractory Nausea Vomiting, 2nd line for nausea/vomiting sodium chloride 0.9% IV solution 250 mL Intravenous, at 20 mL/hr, NEEDED, Starting on Sun11/10/21 at 1228, Until Sun11/11/21 at 1745, Carrier Fluid - See Admin. Inst, 250mL 0.9NS to be used as carrier fluid for intermittent small volume or piggyback medication administration as needed. Infusion rate of the carrier fluid should be set at 20 mL/hr unless the rate as the intermittent medication is less than 20 mL/hr. For intermittent medications with a rate less than 20 mL/hr set the carrier fluid at that rate of the intermittent or piggy back medication. Linked Groups Order Group 1: ondansetron 4mg/2ml (ZOFRAN) injection 4 mgJump to med 4 mg, Intravenous, EVERY 6 HOURS NEEDED, Starting on Sun11/10/21 at 1228, Until Sun11/11/21 at 1745, Nausea / Vomiting Or ondansetron (ZOFRAN) tablet 4 mgJump to med 4 mg, Oral, EVERY 6 HOURS NEEDED, Starting on Sun11/10/21 at 1228, Until Sun11/11/21 at 1745, Nausea / Vomiting Group 2: prochlorperazine (COMPAZINE) tablet 10 mgJump to med 10 mg, Oral, EVERY 6 HOURS NEEDED, Starting on Sun11/10/21 at 1228, Until Sun11/11/21 at 1745, Refractory Nausea Vomiting, 2nd line for nausea/vomiting Or prochlorperazine (COMPAZINE) suppository 25 mgJump to med 25 mg, Rectal, 2 TIMES DAILY NEEDED, Starting on Sun11/10/21 at 1228, Until Sun11/11/21 at 1745, Refractory Nausea Vomiting, 2nd line for nausea/vomiting Scheduled Medication Order 11/20/2021 11/21/2021 11/22/2021 Enoxaparin Sodium (LOVENOX) injection 30 mg 30 mg, Subcutaneous, EVERY 24 HOURS, First dose on Sun11/21/21 at 2100, Until Discontinued, , Indications: DVT/PE prophylaxis 2003 (Given - Provider: Micaela Dejesus, ANGELITA) 2100 (Canceled Entry - Provider: System Discharge - Comment: Automatically canceled at discontinue of medication order) fluticasone (FLONASE) 50 MCG/ACT nasal spray 1 spray 1 spray, Nasal, DAILY, First dose on Sun11/22/21 at 0900, Until Discontinued, Dose is for each nostril. 911 (Given - Provid er: Brianne Rush RN) ipratropium-albuterol (DUONEB) 0.5-2.5 (3) MG/3ML nebulizer solution 3 mL (CANCELED) 3 mL, Nebulization, EVERY 4 HOURS, First dose (after last modification) on Sun11/21/21 at 1800, Until Discontinued 175 (Not Given - Provider: Janice Casper, [employer] Permit [employer] - Reason: Other - Comment: dose rescheduled)2020 (Given - Provider: Alek Rosales RCP) 000 (Given - Provider: Alek Rosales RCP) ipratropium-albuterol (DUONEB) 0.5-2.5 (3) MG/3ML nebulizer solution 3 mL 3 mL, Nebulization, EVERY 4 HOURS, First dose (after last modification) on Sun11/22/21 at 0400, Until Discontinued 0300 (Not Given - Provider: Alek Rosales RCP - Reason: Patient/family refused - Comment: refused for sleep)0852 (Given - Provider: Michelle Suero RCP)1312 (Given - Provider: Neymar Kelley, [employer] Permit [employer])1614 (Given - Provider: Belkis Medrano RCP)1999 (Canceled Entry - Provider: System Discharge - Comment: Automatically canceled at discontinue of medication order) Mometasone Furo-Formoterol Fum (DULERA) 100-5 MCG/ACT inhaler 2 puff 2 puff, Inhalation, EVERY 12 HOURS, First dose on Sun11/22/21 at 1200, Until Discontinued 1200 (Not Given - Provider: Belkis Medrano RCP - Reason: RT not available)2100 (Canceled Entry - Provider: System Discharge - Comment: Automatically canceled at discontinue of medication order) Multi-Vitamins tablet 1 tablet 1 tablet, Oral, DAILY, First dose on Sun11/22/21 at 0900, Until Discontinued 09 (Given - Provid er: Brianne Rush RN) nicotine (NICODERM CQ) 14 MG/24HR patch 1 patch 1 patch, Transdermal, EVERY 24 HOURS, First dose on Sun11/21/21 at 1815, Until Discontinued, Apply patch to hairless skin site on upper body or arm. Rotate sites for each application. Do not cut or alter patch. Remove patch after duration of 16-24 hours. To dispose, fold adhesive ends together. 1843 (Not Given - Provider: Raven Cavanaugh RN - Reason: Patient/family refused) 1723 (Not Given - Provider: Brianne Rush RN - Reason: Patient/family refused) potassium chloride (K-DUR) tablet ER 40 mEq (COMPLETED) 40 mEq, Oral, ONCE, 1 dose, On Sun11/21/21 at 1730, Swallow tablets whole; do not crush, chew, or suck on tablet. Tablet may also be broken in half and each half swallowed separately. 1736 (Given - Provider: Raven Cavanaugh RN) predniSONE (DELTASONE) tablet 40 mg 40 mg, Oral, DAILY, 4 doses, First dose on Sun11/22/21 at 0900, Last dose on Sun11/25/21 at 0900 0912 (Given - Provid er: Brianne Rush RN) predniSONE (DELTASONE) tablet 60 mg (COMPLETED) 60 mg, Oral, ONCE, 1 dose, On Sun11/21/21 at 1215 1226 (Given - Provider: Maria Luisa Conde RN) tiotropium (SPIRIVA RESPIMAT) inhaler 2 puff 2 puff, Inhalation, DAILY, First dose on Sun11/22/21 at 0900, Until Discontinued, For self-administered inhalers, contact Respiratory Therapy for canister activation. 0852 (Given - Provid er: Michelle Suero RCP) PRN Medication Order 11/20/2021 11/21/2021 11/22/2021 acetaminophen (TYLENOL) tablet 650 mg 650 mg, Oral, EVERY 6 HOURS NEEDED, Starting on Sun11/21/21 at 1727, Until Sun11/22/21 at 2102, Mild Pain, Oral temp > 100.4 F, Maximum dose of acetaminophen is 4000 mg from all sources in 24 hours. alum/mag hydrox.-simethicone oral suspension 30 mL 30 mL, Oral, EVERY 6 HOURS NEEDED, Starting on Sun11/21/21 at 1727, Until Sun11/22/21 at 2101, Indigestion, Per 5 mL is equivalent to: (Alum-Mag Hydroxide 200-225 mg and Simethicone 20 mg) and (Alum-Mag Hydroxide 200-200 mg and Simethicone 20 mg) benzocaine-menthol (CEPACOL) 15-3.6 MG per lozenge 1 lozenge 1 lozenge, Oral, EVERY 2 HOURS NEEDED, Starting on Sun11/21/21 at 1727, Until Sun11/22/21 at 2101, Sore Throat, Max 8 lozenges/day Patient may self-administer. guaiFENesin (ROBITUSSIN) oral solution 400 mg 400 mg, Oral, EVERY 6 HOURS NEEDED, Starting on Sun11/21/21 at 1727, Until Sun11/22/21 at 2101, Cough, Congestion melatonin tablet 6 mg 6 mg, Oral, DAILY AT BEDTIME NEEDED, Starting on Sun11/21/21 at 1727, Until Sun11/22/21 at 2101, Insomnia ondansetron (ZOFRAN) tablet 4 mg(Linked Group 1) 4 mg, Oral, EVERY 6 HOURS NEEDED, Starting on Sun11/21/21 at 1727, Until Sun11/22/21 at 2101, Nausea / Vomiting, 1st line for Nausea/Vomiting ondansetron 4mg/2ml (ZOFRAN) injection 4 mg(Linked Group 1) 4 mg, Intravenous, EVERY 6 HOURS NEEDED, Starting on Sun11/21/21 at 1727, Until Sun11/22/21 at 2101, Nausea / Vomiting, 1st line for Nausea/Vomiting polyethylene glycol (MIRALAX) packet 17 g 17 g, Oral, DAILY NEEDED, Starting on Sun11/21/21 at 1727, Until Sun11/22/21 at 2101, Constipation 1st Line Polyvinyl Alcohol-Povidone PF (REFRESH) ophthalmic solution 1 drop 1 drop, Both Eyes, EVERY 1 HOUR NEEDED, Starting on Sun11/21/21 at 1727, Until Sun11/22/21 at 2102, Dry Eyes, Patient may self-administer. prochlorperazine (COMPAZINE) suppository 25 mg(Linked Group 2) 25 mg, Rectal, 2 TIMES DAILY NEEDED, Starting on Sun11/21/21 at 1727, Until Sun11/22/21 at 2102, Refractory Nausea Vomiting, 2nd line for nausea/vomiting prochlorperazine (COMPAZINE) tablet 10 mg(Linked Group 2) 10 mg, Oral, EVERY 6 HOURS NEEDED, Starting on Sun11/21/21 at 1727, Until Sun11/22/21 at 2102, Refractory Nausea Vomiting, 2nd line for nausea/vomiting sodium chloride 0.9% IV solution 250 mL Intravenous, at 20 mL/hr, NEEDED, Starting on Sun11/21/21 at 1727, Until Sun11/22/21 at 2102, Carrier Fluid - See Admin. Inst, 250mL 0.9NS to be used as carrier fluid for intermittent small volume or piggyback medication administration as needed. Infusion rate of the carrier fluid should be set at 20 mL/hr unless the rate as the intermittent medication is less than 20 mL/hr. For intermittent medications with a rate less than 20 mL/hr set the carrier fluid at that rate of the intermittent or piggy back medication. Linked Groups Order Group 1: ondansetron 4mg/2ml (ZOFRAN) injection 4 mgJump to med 4 mg, Intravenous, EVERY 6 HOURS NEEDED, Starting on Sun11/21/21 at 1727, Until Sun11/22/21 at 2102, Nausea / Vomiting, 1st line for Nausea/Vomiting Or ondansetron (ZOFRAN) tablet 4 mgJump to med 4 mg, Oral, EVERY 6 HOURS NEEDED, Starting on Sun11/21/21 at 1727, Until Sun11/22/21 at 2102, Nausea / Vomiting, 1st line for Nausea/Vomiting Group 2: prochlorperazine (COMPAZINE) tablet 10 mgJump to med 10 mg, Oral, EVERY 6 HOURS NEEDED, Starting on Sun11/21/21 at 1727, Until Sun11/22/21 at 2102, Refractory Nausea Vomiting, 2nd line for nausea/vomiting Or prochlorperazine (COMPAZINE) suppository 25 mgJump to med 25 mg, Rectal, 2 TIMES DAILY NEEDED, Starting on 11/21/21 at 1727, Until Sun11/22/21 at 2102, Refractory Nausea Vomiting, 2nd line for nausea/vomiting Goals (unrecognized section and content) Goals may be documented in a n alternate section FOR RECORDS PERTAINING TO PATIENTS WHO ARE OR HAVE BEEN ENROLLED IN A CHEMICAL DEPENDENCY/SUBSTANCEABUSE PROGRAM, SOME INFORMATION MAY BE OMITTED. This clinical summary was aggregated from multiple sources. Caution should be exercised in using it in the provision of clinical care. This summary normalizes information from multiple sources, and as a consequence, information in this document may materially change the coding, format and clinical context of patient data. In addition, data may be omitted in some cases. CLINICAL DECISIONS SHOULD BE BASED ON THE PRIMARY CLINICAL RECORDS. [employer] [facility] provides no warranty or guarantee of the accuracy or completeness of information in this document.
== END | disposition home or self-care (01) ==
LOC: MRI 07:14
PROVIDERS: Referring Provider Student in an Organized Health Care Education/Training Program; Visit Provider Student in an Organized Health Care Education/Training Program
DX: C34.31 Malignant neoplasm of lower lobe, right bronchus or lung (principal); C34.11 Malignant neoplasm of upper lobe, right bronchus or lung
CPT/HCPCS: 70553; A9575